=== PATIENT | female | born 1990 | race Caucasian/White ===

== ENCOUNTER 2020-01-19 09:00 | Outpatient (RCR) | payer MEDICARE, MEDICAID, SELFPAY ==
--- NOTE | 2020-01-19 09:05 | BH.SGPN.GN ---
Behaviors/Verbalizations/Mental Status: [] Eye contact is good. Motor activity is appropriate. Appearance is disheveled. Speech is Appropriate. Mood is depressed. Affect is flat. Thoughts are linear and logical. No evidence of psychosis. Reviewed daily check in sheet and no reports of suicidal ideations or intent. Client Response/Progress/Benefit: [] Pt participated at times in group discussion. This was pt's first IOP session. She introduced herself to the group and shared that she has PTSD, Bipolar, and anxiety. Began the program to help reduce the severity of her MH symptoms. Discussed recent hospitalization and the impact of her depression on her daily life. Group was receptive and welcomed her to the program. Provided feedback and advice for the first week of the IOP program. No progress noted as this was first day. Will continue in IOP to maintain safety, prevent decompensation, and increase healthy coping skills. Narrative Note: []
--- NOTE | 2020-01-19 10:08 | BH.SGPN.GN ---
Behaviors/Verbalizations/Mental Status: []Client alert and oriented, casually dressed and groomed. Eye contact good. Motor activity appropriate. Speech within normal limits. Affect congruent, mood anxious and dysthymic. Thoughts linear, logical, no signs of hallucinations or delusions. Client Response/Progress/Benefit: []Client first day in IOP program. She responded well to session and contributed to discussion, reported connecting to idea that we control our response to life?s events. Connected with the group topic of crisis and did well to work with group to define crisis. Group identified examples of potential crisis to include loss of a loved one, relationship problems, divorce, job loss, and medical problems. Client agreed with peers that anything can lead to a crisis. Connected with discussion on how coping with external crisis by using unhealthy coping skills could result personal crisis. Group identified unhealthy coping skills to include; using substances, sleep, avoidance/isolation, anger outbursts, suicidal thoughts, and self-harm. Group reported that it is important to have awareness of warning signs in order to prevent crisis. Group identified warning signs for crisis and Client completed the personal warning signs worksheet. Identified crisis warning signs to include; increased negative thoughts, apathy, and drop in functioning. Benefited from group by increasing awareness of crisis and personal warning signs. Progress noted in client?s ability to engage in group. Will continue IOP tx to improve identification and application of coping skills, prevent decompensation, and reduce mental health sx. Narrative Note: []
--- NOTE | 2020-01-19 11:05 | BH.SGPN.GN ---
Behaviors/Verbalizations/Mental Status: []Pt eye contact good, casually dressed, motor activity appropriate, speech normal rate and tone, mood anxious and depressed, constricted affect, thoughts linear and intact, no evidence of delusions or hallucinations. Client Response/Progress/Benefit: []Client responded well to session as evidenced by client listening attentively to others and providing input throughout session. Client identified her warning signs for crisis and gained further awareness of earliest warning signs. Client appeared to connect that awareness of these warning signs can prevent further crisis and help client utilize healthy coping skills to break the cycle. Client created a crisis action plan to help client better manage warning signs for crisis. Client?s plan included: challenging distorted thoughts, identifying at least two daily positives, making list of small attainable goals, opposite action, making to-do lists, and getting out of bed. Client created her crisis survival kit by choosing various tangible items that remind her of various skills from crisis intervention plan. Client appeared to benefit from creating a crisis action plan and increasing self-awareness. Client to continue IOP to prevent decompensation, maintain safety, and increase healthy coping. Narrative Note: []
--- NOTE | 2020-01-23 09:06 | BH.SGPN.GN ---
Behaviors/Verbalizations/Mental Status: []Eye contact is good. Motor activity is appropriate. Appearance is casual. Speech is Appropriate. Mood is anxious, dysthymic. Affect is full. Thoughts are linear and logical. No evidence of psychosis. Reviewed daily check in sheet and no reports of suicidal ideations or intent. Client Response/Progress/Benefit: []Pt was an active participant in group discussion. Pt shared that her current mood as ?anxious? and noted this is due to still adjusting to the group environment. Pt identified current mental health ?wins? as challenging herself to complete a piece of artwork and actually focusing on what she like about it rather than potential imperfections. Shared often struggling to challenge unrealistic expectations of herself. Noted additional win as coping with thoughts of self-harm and not acting upon them. Indicated that distracting herself with a movie and being near a support was most helpful in her ability to successfully do so. Shared that stress related to completing several art projects continues to reinforce anxious thoughts and feelings of being overwhelmed. Expressed trying to break things down into small steps. Benefited from group support, encouragement, and feedback. Will continue in IOP to prevent decompensation, stabilize mood, and improve daily functioning. Narrative Note: []
--- NOTE | 2020-01-23 10:15 | BH.SGPN.GN ---
Behaviors/Verbalizations/Mental Status: []Pt eye contact good, casually dressed, motor activity appropriate, speech normal rate and tone, mood dysthymic, constricted affect, thoughts linear and intact, no evidence of delusions or hallucinations. Client Response/Progress/Benefit: []Client was an active participant in group activity and provided input to discussion. Client connected with the topic of obstacles and solutions and worked with group to identify common internal and external barriers that keep people stuck. Group identified; low motivation, not having skill set, learned behavior, hopelessness, and negative thinking as potential internal barriers that could prevent progress towards a better quality of life. Client shared current reality as feeling like she is stuck, afraid, helpless, and everything feels broken. Client's realistic, desired reality to be back to working in the field she loves. Client stated although she won't be able to go back to work Benefited from group as client was able to identify current and desired mental health state and increase awareness of how barriers can impact progress. Will continue IOP tx to increase healthy coping skills, maintain set boundaries, and prevent decompensation. Narrative Note: []
--- NOTE | 2020-01-23 11:20 | BH.SGPN.GN ---
Behaviors/Verbalizations/Mental Status: [] Eye contact is good. Motor activity is appropriate. Appearance is casual. Speech is Appropriate. Mood is depressed. Affect is flat. Thoughts are linear and logical. No evidence of psychosis. Client Response/Progress/Benefit: [] Pt participated at times during the group discussion. Engaged in group activity. Pt was able to identify barriers to reaching her desired reality which included; negative thoughts, self-hate, and fear. During the activity group worked together to developed strategies to overcome commonly reported obstacles such as; Hopelessness, Lack of motivation, Isolation, Self-Loathing, Apathy, Fear of Failure, Avoidance, and Toxic Relationships. Pt benefited from identifying obstacles in the way of her desired reality as well as strategies to overcome those obstacles. Will continue in IOP to maintain safety, prevent decompensation, and improve daily functioning. Narrative Note: []
--- NOTE | 2020-01-25 09:10 | BH.SGPN.GN ---
Behaviors/Verbalizations/Mental Status: [] Eye contact is good. Motor activity is appropriate. Appearance is causal. Speech is Appropriate. Mood is depressed. Affect is flat. Thoughts are linear and logical. No evidence of psychosis. Reviewed daily check in sheet and no reports of suicidal ideations or intent. Client Response/Progress/Benefit: [] Pt was an active participant in group discussion. Emotion for today is numb. Daily symptom tracker notes 5 for anxiety and hopelessnes. Shared with the group that she had completed a consult for transcranial magnetic stimulation yesterday. Briefly explained this to the group. She has to wait a couple months before she learns if she meets criteria. Mentioned that next week is the anniversary of her 's suicide and she is already planning things on that day to help distract herself and not isolate. In the past this day has been problematic. Group provided support and some feedback. She is able to distract herself with some creative projects which she showed the group. When she posts these online it is helpful to her MH due to the positive. Benefited from group support, encouragement, and feedback. Will continue in IOP to maintain safety, improve functioning, and prevent decompensation. Narrative Note: []
--- NOTE | 2020-01-25 10:13 | BH.SGPN.GN ---
Behaviors/Verbalizations/Mental Status: []Client alert and oriented, casually dressed and groomed. Eye contact good. Motor activity appropriate. Speech within normal limits. Affect congruent, mood anxious and depressed. Thoughts linear, logical, no signs of hallucinations or delusions. Client Response/Progress/Benefit: []Client receptive of session, attentive in discussion and activity. Client discussed the quote and provided input that ?it can seem safer not to share emotions because it prevents potential conflict and I?m a nonconfrontational person?. Discussed impact of shutting down on relationships. Client helped group identify barriers that impact one?s ability to communicate when emotions are high. These barriers included; increased stress, fear of confrontation or conflict, making assumptions, and distorted thoughts. Expressed that unmanaged emotions can make someone respond in sarcastic or passive-aggressive manners. Client participated in the activity and did well to manage emotions throughout. Client appeared to benefit from increasing awareness of how emotions can impact communication and practicing in the moment coping skills. Progress noted as client has been demonstrating improved engagement in treatment setting. Reports increased use of small goal setting. Will continue IOP tx to further increase emotion regulation, improve coping and communication, and improve daily functioning. Narrative Note: []
--- NOTE | 2020-01-25 11:15 | BH.SGPN.GN ---
Behaviors/Verbalizations/Mental Status: []Client alert and oriented, casually dressed and fair grooming. Eye contact good. Motor activity appropriate. Speech within normal limits. Affect flat, mood depressed. Thoughts linear, logical, no signs of hallucinations or delusions. Client Response/Progress/Benefit: []Client engaged in session AEB client listening attentively to peer and providing input at times during session. Attentive during psychoeducation on 4 zones of regulation. Client able to identify how she feels in each zone as well as how she acts in each zone. Client able to identify what behaviors she exhibits when in the different emotional zones. Group identified coping skills can use to support self in each zone which included: doing something enjoy, being social, journaling, opposite action, self-care, and self-talk. Client stated she is most often in a low state of alertness. Client stated she will focus on utilizing 5 senses grounding tool to help when in low state of alertness. Benefited from increased education on zones of regulation or stages of alertness for emotions and healthy coping skills to use for each zone. Will continue IOP tx to increase consistent use of healthy coping skills, increase socialization and prevent decompensation. Narrative Note: []
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
--- NOTE | 2020-01-25 14:07 | BH.MTP_ITS ---
[facility] Treatment Plan - Patient Information Program Physician:: Dr. Cano Primary Therapist:: Ariadna Morales, [facility] - Psychiatric Diagnoses Psychiatric Diagnoses:: Bipolar 1 disorder, current episode depressed, severe without psychosis; PTSD; DIONE; ADD; history of anorexia with purging by emesis Diagnosis Code(s):: F 31.4 - Estimated LOS Estimated LOS (in weeks):: 6 Problem/Goal #1 - Problem/Goal #1 Stated Goal:: Client will reduce depression, feelings of hopelessness, and suicidal ideation due to Bipolar 1 Disorder through Intensive Outpatient Program. Description of Barriers: Pt's negative core beliefs, distorted thoughts, low motivation, anhedonia, and chronic suicidal ideation could be potential barriers to treatment. Functional Impact: Pt currently on disability due to her mental health making it challenging to maintain a job. Pt has had 20+ psychiatric admissions with most recent 4 weeks ago for suicidal ideation. Pt has difficulty maintaining safety outside inpatient psychiatric hospital. She endorses depressed mood, isolation, hopelessness, ruminating and worthlessness. Goal Relevant Strengths/Supports: Pt is intelligent, creative, resilient and expresses motivation to get better. - Objectives Objective #1 Stated Objective: Identify 2-3 thoughts or behaviors that reinforce depressive symptoms and replace negative thoughts with more rational thinking. Interventions: Therapist will help client identify distorted thinking that triggers or reinforces depressive state. Therapist will provide client with resources to help guide in replace trigger thoughts or behaviors. Discharge Criteria: Client will have met this goal when she can verbalize at least 2 thoughts or behaviors that reinforce depressive episode, identify rational response to replace those thoughts, and effectively be able to defeat suicidal ideation. Target Date: 03/01/20 Review Date: 02/16/20 Objective #2 Stated Objective: Pt will decrease depressive symptoms AEB pt?s score on the DSM 5 cross-cutting measure and improve pt?s daily functioning. Interventions: Through groups and individual therapy, pt will be provided with education on cognitive distortions, mistaken beliefs, and identifying and combating negative self-talk. Therapist will assist pt with getting back into the activities she once enjoyed as well as increasing healthy coping strategies. Discharge Criteria: Pt will have met this goal when pt?s score on the DSM 5 cross cutting measure for depression has been decreased and per pt?s report daily functioning has improved. Target Date: 03/01/20 Review Date: 02/16/20 Problem/Goal #2 - Problem/Goal #2 Stated Goal:: Stabilize anxiety level while increasing ability to function on daily basis. Description of Barriers: Pt's negative core beliefs, distorted thoughts, low motivation, anhedonia, and chronic suicidal ideation could be potential barriers to treatment. Functional Impact: Pt currently on disability due to her mental health making it challenging to maintain a job. Pt has had 20+ psychiatric admissions with most recent 4 weeks ago for suicidal ideation. Pt has difficulty maintaining safety outside inpatient psychiatric hospital. She endorses depressed mood, isolation, hopelessness, ruminating and worthlessness. Goal Relevant Strengths/Supports: Pt is intelligent, creative, resilient and expresses motivation to get better. - Objectives Objective #1 Stated Objective: Client will learn and utilize 2-3 healthy coping strategies to manage anxious symptoms. Interventions: Therapist will assist client in learning internal coping strategies to manage anxious symptoms, along with helping client identify triggers. Discharge Criteria: Client will have achieved this goal when can consistently utilize at least 2 healthy coping strategies to manage anxious symptoms. Target Date: 03/01/20 Review Date: 02/16/20 Objective #2 Stated Objective: Pt will decrease anxious symptoms AEB pt?s score on the DSM 5 cross-cutting measure improve pt?s daily functioning. Interventions: Through groups and individual therapy, pt will be provided education about anxiety?s impact on body and common physiological reaction to anxiety. Therapist will teach pt appropriate breathing techniques and build healthy coping skills to manage daily anxieties. Discharge Criteria: Pt will have met this goal when pt?s score on the DSM 5 cross cutting measure for anxiety has been decreased and per pt?s report daily functioning has improved. Target Date: 03/01/20 Review Date: 02/16/20
--- NOTE | 2020-01-25 14:48 | BH.MDN ---
Multi-Disciplinary Note - Note 45-min Individual Time Started:: 12:20 Date: 01/25/20 Purpose of session/treatment goals addressed:: Purpose of session was to asses pt's current symptoms and stressors. Other topics included: identifying goals for IOP and reviewing current coping skills. Eye Contact:: Fair Motor Activity:: Appropriate Appearance:: Casual Speech:: Appropriate Mood:: Depressed Affect:: Flat Thoughts:: Linear, Logical, No evidence of hallucinations/delusions noted Staff Interventions:: Therapist used open ended questions to elicit pt's current symptoms and stressors. Therapist assisted pt with developing plan to help pt manage emotions during anniversary of her 's . Therapist collaborated with pt to identify treatment goals for IOP. Elicited what healthy coping skills current help pt manage symptoms. Provided support by validating emotions. Client Response:: Pt reported she is feeling anxious and a bit down because the anniversary of her 's is coming up. Pt stated in the past the anniversay day of his does not go well. Pt reported she discussed with her mom potentially going to a museum together as a distraction. Pt agreed with therapist she does feel the need to be sad on the anniversay day. seemed to benefit from discussion about it being okay pt is not depressed on anniversary day. Pt stated while in IOP program she wants to increase utilization of healthy coping. Pt reported she knows many healthy skills but struggles with using the skills consistently. Pt stated she wants an overall reduction in symptoms. Pt reported current skills that help her symptoms are drawing, creating art, and hanging out with friends. Pt created goal of spending at least 30 minutes each day to work on her commissioned art pieces. Risks/Concerns:: Pt deneis current suicidal ideation, plan or intention to date. Per [facility] pt is high risk. Pt agreeable to talk with brother about having him keep her excess medications. Pt resistant to including her mom and dad into reducing access to lethal means. Pt states she doesn't have access to firearms. Therapist reinterated importance of reducing access to means even when she is not actively suicidal. Progress Toward Goals/Plan:: No progress noted. Session focused on lethal means counseling and establishing goals for IOP level of care. Pt to continue IOP to maintain safety, increase healthy coping, and prevent decompensation. Time Stopped:: 13:00
--- NOTE | 2020-01-26 09:00 | BH.SGPN.GN ---
Behaviors/Verbalizations/Mental Status: [] Eye contact is good. Motor activity is appropriate. Appearance is casual. Speech is Appropriate. Mood is depressed. Affect is flat.Tearful at times Thoughts are linear and logical. No evidence of psychosis. Reviewed daily check in sheet and no reports of suicidal ideations or intent. Client Response/Progress/Benefit: [] Pt was an active participant in group discussions on vulnerability and anxiety/fear related to Coronavirus. Emotion for today is anxiety. She shared some anxiety facing the coronavirus and her concern for certain family members. She has plan to attend a social event this evening however my danelle is telling not to go citing concerns for illness as well as struggles with anxiety in social settings. Aware that going will be beneficial for her mental health. Group provided feedback and challenged some distortions. Progress noted per pt report. Will continue in IOP to maintain safety, improve functioning, and prevent re-admission to psych unit. Narrative Note: []
--- NOTE | 2020-01-26 10:16 | BH.SGPN.GN ---
Behaviors/Verbalizations/Mental Status: []Client alert and oriented, casually dressed and groomed. Eye contact good. Motor activity appropriate. Speech within normal limits. Affect congruent, mood anxious and dysthymic. Thoughts linear, logical, no signs of hallucinations or delusions. Client Response/Progress/Benefit: []Client responded well to session, attentive and engaged throughout. Quite at times though participated in group discussion to define conflict and identify differences between internal and external conflict. Client shared that she often struggles with being ?nonconfrontational in nature? which increases her desire to avoid as a result. Group reported the benefits of addressing conflict included increased self-confidence, increased trust in relationships, having needs be met, and preventing further conflict from arising. Group identified and discussed consequences of not addressing conflict in healthy ways which included: decreased self-esteem, damaged relationships, increased mental health symptoms, and additional stressors developing as a result. Benefited as client was able to identify current conflict style and how it impacts her mental health and relationships with others. Noted she often is accommodating or avoiding and that this has impacted her ability to get her own needs met. Progress noted as shown by client?s report of improved insight, though she continues to struggle with distorted thought patterns and consistent skill application. Will continue IOP tx to promote insight and application of healthy skills, reduce mental health sx severity, and further improve daily functioning. Narrative Note: []
--- NOTE | 2020-01-26 11:20 | BH.SGPN.GN ---
Behaviors/Verbalizations/Mental Status: []Client alert and oriented, casually dressed and groomed. Eye contact good. Motor activity appropriate. Speech within normal limits. Affect constricted, mood depressed. Thoughts linear, logical, no signs of hallucinations or delusions. Client Response/Progress/Benefit: []Client passive participant AEB client not providing any input during group discussion, however appeared to listen attentively to peers and took notes throughout. Listened to ongoing discussion of the different conflict resolution styles, drawbacks, and appropriate times of use. Client stated she most often avoids or accommodates when faced with conflict. Client reported she recognizes avoiding or accommodating when faced with conflict results in others needs being met. Client stated she would like to become more assertive when faced with a conflict so her thoughts and opinions are heard by others. Client appeared to benefit from increasing awareness of her personal conflict resolution style and from learning ways to increase healthy conflict resolution. Will continue tx to increase consistent use of healthy coping, maintain safety, and prevent decompensation. Narrative Note: []
--- NOTE | 2020-01-29 09:10 | BH.SGPN.GN ---
Behaviors/Verbalizations/Mental Status: [] Eye contact is good. Motor activity is appropriate. Appearance is causal. Speech is Appropriate. Mood is depressed. Affect is flat. Thoughts are linear and logical. No evidence of psychosis. Reviewed daily check in sheet and no reports of suicidal ideations or intent. Client Response/Progress/Benefit: [] Pt was an active participant in group discussion on anxiety/fear related to COVID-19 and ways to help manage emotions. Pt reports that she is extremely anxious about COVID-19 due to having family members who are high risk. Admits to not utilizing healthy coping skills (constantly check social media and reading articles which exacerbate her symptoms) and catastrophizing. She attempted to distract during the weekend through her art however her computer stopped working. She did attend game night on Wednesday which she reports was fun and she was proud of this. Some progress noted per pt report however recent fears regarding virus have escalated her anxiety. Benefited from group support, encouragement, and feedback. Will continue in IOP to maintain safety, prevent decompensation, and stabilize mood. Narrative Note: []
--- NOTE | 2020-01-29 10:15 | BH.SGPN.GN ---
Behaviors/Verbalizations/Mental Status: []Client alert and oriented, casually dressed and groomed. Eye contact good. Motor activity appropriate. Speech within normal limits. Affect flat, mood depressed. Thoughts linear, logical, no signs of hallucinations or delusions. Client Response/Progress/Benefit: []Client passive participant AEB pt not contributing input during discussion, however took notes throughout session. Group identified the benefits to setting boundaries as well as the consequences of not setting healthy boundaries. Participated in the discussion of benefits of setting boundaries which included; increase control over situations, self-protection, self care, and ability to manage mental health better. Client seemed to benefit from increased awareness of how poor boundaries can negatively impact mental health. Will continue IOP tx to prevent decompensation, improve emotional regulation, and increase utilization of healthy coping skills. Narrative Note: []
--- NOTE | 2020-01-29 11:17 | BH.SGPN.GN ---
Behaviors/Verbalizations/Mental Status: []Client alert and oriented, casual dress, hygiene appropriate. Eye contact good. Motor activity appropriate. Speech within normal limits. Affect constricted, mood anxious, dysthymic. Thoughts linear, logical, no signs of hallucinations or delusions. Client Response/Progress/Benefit: []Client responded well to session, occasionally sharing, but mostly quiet. Client engaged in the boundary self-assessment activity and worked with group to further process. Client reported she has a hard time saying no to people due to fear of conflict. Client able to recognize that not being able to say no causing more stress and anxiety in client?s life. Self-identified as using both rigid and porous boundary setting styles. Client stated she connects with the difficulty saying no that is characteristic of porous boundary setting, but client also connects with being avoidant and detached that is characteristic of rigid boundaries. Client shared being detached and avoidant negative impacts her relationships and reinforces negative thoughts. Progress noted in client?s increased awareness of how her boundary setting styles impact her mental health and mood. Client to continue IOP tx to reduce intensity and severity of mental health symptoms as well as improve daily functioning. Narrative Note: []
--- NOTE | 2020-01-30 10:10 | BH.SGPN.GN ---
Behaviors/Verbalizations/Mental Status: []Client alert and oriented, casually dressed and groomed. Eye contact good. Motor activity appropriate. Speech within normal limits. Affect constricted, mood anxious. Thoughts linear, logical, no signs of hallucinations or delusions. Client Response/Progress/Benefit: []Client responded well to session, participating in group discussion and activity. Attentive during psychoeducation and commenting on the quote. Client stated change is difficult, but sometimes it is needed and client gave the example of leaving a toxic relationship. Group identified the benefits of change which included: personal growth, better relationships, improved mental health, increased confidence, and better coping skills. Worked with the group to identify barriers to change, which included: growing up with unhealthy coping skills, fear of embarrassment, fear of the unknown, fear of hurting others, comfort, and what if thinking. Client participated along with group in activity where they identified and discussed the emotions related to change. Client was attentive during psychoeducation on the change process. Benefited from increased awareness and understanding of emotions, benefits, and barriers related to change. Will continue IOP tx to prevent decompensation, maintain safety, and improve healthy coping skills. Narrative Note: []
--- NOTE | 2020-01-30 11:17 | BH.SGPN.GN ---
Behaviors/Verbalizations/Mental Status: []Client alert and oriented, casually dressed and groomed. Eye contact good. Motor activity appropriate. Speech within normal limits. Affect constricted, mood depressed. Thoughts linear, logical, no signs of hallucinations or delusions. Client Response/Progress/Benefit: []Client was an active participant AEB client providing input during discussion and listening to peers attentively. Client engaged during discussion on weighing the pros and cons associated with change and benefited from learning to do so through use of decisional balance sheet. Identified she wants to draw daily as the change she wants to make to improve her mental health. Client able to identify the pros of drawing daily which included: releasing stress, feeling accomplished, improve drawing skill, more followers online, and creating new art pieces. Identified cons of not drawing daily include: losing skill, don't contribute to art world, creating nothing, feeling like a failure, guilt, and losing part of self. Client stated obvious answer is to draw daily, but unsure if ready to make that change still. Appeared to benefit from gaining awareness of the pros and cons associated with changing her coping skills. Recommended continued IOP tx to promote increase healthy coping, challenge distortions, and prevent decompensation. Narrative Note: []
--- NOTE | 2020-01-30 21:09 | BH.MDN ---
Multi-Disciplinary Note - Note 45-min Individual Time Started:: 12:15 Date: 01/30/20 Purpose of session/treatment goals addressed:: Purpose of session was to assess pt's current symptoms and stressors. Other topics included: reviewed homework from last session, impact of anxiety on functioning and healthy coping skills. Eye Contact:: Fair Motor Activity:: Appropriate Appearance:: Casual Speech:: Appropriate Mood:: Anxious, Dysthymic Affect:: Constricted Thoughts:: Linear, Logical, No evidence of hallucinations/delusions noted Staff Interventions:: Therapist utilized open ended questions to elicit pt's current symptoms and stressors. Therapist reviewed homework from last session, assisting pt with identifying positives from having goals. Therapist elicited pt's anxiety triggers and assisted pt with recognizing impact anxiety has on funcitoning. Reviewed healthy coping skills to manage anxious and depressive symptoms. Provided support by using active listening and validating emotions. Client Response:: Pt reported she was able to accomplish some of her goal of working on an art commission. Pt stated she felt accomplished and positive after working on her commissioned art piece. Pt reported she wasn't able to accomplish compelte goal of working on her art piece every day because her computer broke. Pt stated she did fun traditional art the rest of the weeked since her computer was broke so couldn't work on her commissioned pieces. Pt reported she has been having increased anxiety over everything. Pt stated she had to use her panic medication to help calm her down. Pt reported with needing to stay home due to the coronavirus she no longer can go to the museum on the anniversary of her 's . Pt stated that had been her plan so she could have a positive distraction. Pt reported she currently is feeling rather numb about the upcoming anniversary. Pt stated she plans to hang out with her mom at home and do some art as a way to cope. Pt reported her anxiety is impacting her functioning because has a difficult time getting out of bed, struggles with going to public places, and tends to experience panic-like symptoms when trying to go to bed. Pt stated she is willing to practice mindful breathing, grounding techniques, and distraction activities to help her manage anxiety. Risks/Concerns:: Denies current suicidal ideation, plan or intent. Pt continues to be resistant to including any of her family members in the process of reducing access to lethal means. Therapist provided lethal means counseling. Reiterated importance of reducing access to lethal menas even when not feeling actively suicidal. Pt future focused. Agreeable to call 911 or go to nearest emergency room if feel unable to maintain safety. Progress Toward Goals/Plan:: Progress noted with pt starting to engage in drawing and working on her commissioned art pieces. Pt stated she hasn't been engaging in art because had lost interest. Seems to benefit from using opposite action skill to help her reengage in activities she used to find enjoyable. Pt to continue IOP to increase healthy coping, maintain safety and prevent decompensation. Time Stopped:: 12:56
--- NOTE | 2020-01-31 09:10 | BH.NA_ITS ---
Physical Data - Vital Signs Temperature: 97.5 F Pulse Rate: 88 Blood Pressure: 94/60 - Height/Weight Height: 1.73 m Weight:: 83.915 kg Weight in Pounds: 185.0 lbs Current Medication Compliance - Medication Compliance Do you take your medication as prescribed?: Yes Do you need assistance with taking medication?: No Have you had side effects from medication?: No Nutritional History - Appetite Nutritional Instructions:: If client shows signs of a swallowing problem, weight change of 10 pounds or more in the last month, or is on a diabetic diet, the physician will review and request a dietitian consult, as appropriate. All unintentional weight loss will be referred to the physician for decision on need for dietitian consult. Describe your appetite:: Good, Fair Have you noticed a change in your eating habits lately?: Yes - recent weight gain of 10lbs with new antidepressant Functional Assessment - Sleep Pattern Describe any problems with sleeping: Client states her sleep is good. States she sleeps 8-9 hours per night. - Activities Motor Activity:: Functional Comments:: bouncing legs at times during interview Sensory/Communication Assess - Vision Problems Do you have any vision problems?: Glasses - Communication Problems Do you have difficulty understanding what people are saying?: No Medical Problems/History - Cardiac Conditions Cardiovascular: Atrial fibrillation Comments:: client states she has follow ups with service supervisor for intermittent A-fib - Neurological Conditions Neurological: Other (See comments) Comments:: epilepsy as a child. Client states she has not been on medication or had a seizure in many years. - Gastrointestinal Conditions Comments:: hiatal hernia, IBS - Pain Assessment Do you have acute or chronic pain?: No Surgical History - Surgical History Have you had any surgeries? If so, list type and date:: Yes - deviated septum sinus surgery, jaw surgery Substance Abuse - Substance Abuse Please describe substance abuse in the last 30 days:: Client states she was a heavy drinker for a short time in college when her was diagnosed as schizophrenic. Client reports no recent alcohol use. Client denies tobacco use. Client states in her teens she used marijuana, acid, ecstasy. Denies recent drug use. Client states she drinks less than 200mg of caffiene per day. Mental Status Summary - Mental Status Significant Findings/Observations on Appearance and Mood:: Client is alert and oriented x 4. Client is casually groomed with cooperative demeanor. Client makes good eye contact, voice rate and volume normal and clear. Client appears mildly depressed and anxious with some anhedonia. Client makes logical associations with normal processing. Denies delusions/hallucinations, no evidence of same. Client with good concentration and attention. Client denies SI. Suicide Assessment - Suicidal Ideation Are you currently or have you been suicidal in the past?: Yes - past SI, denies SI at this time Suicidal Intentional Rating Scale (SIRS): Suicidal thoughts (past) Physician Notification: If Active suicidal thoughts/Will not contract for safety is checked, contact physician and document in the Physician Notification section below. Past Psychiatric History - MH Treatment Hx Past Psychiatric Medications:: Zoloft, paxil, wellbutrin. Client states there are many more that she can not remember names. ECT Therapy Details:: previous Age of first mental health symptoms: Client states she was diagnosed with depression when she was a teenager. Client states in the last 5 years she was diagnosed with general anxiety disorder and bipolar. Describe (age, circumstance, etc) any past hospitalizations: Client has had several hospitalizations. Clients most recent hospitalization was approximately 5 weeks ago at in [place] for suicidal ideations. Current providers for mental health treatment (counselor, psychiatrist, cyanide case hardener, etc.): psychiarist Dr. Peterosn, also trauma therapist at [facility]. Fall Risk Assessment - Age Age: Less than 60 - Mental Status Mental Status: Willing & able to ask for assistance when needed - Physical Status Physical Status: No problems - Impairments Impairments: None - Elimination Elimination: Continent AND independent - Gait or Balance Gait or Balance: Walks independently - Hx of Falls History of falls in the past 6 months: No known history - Medications/Substances Psychotropics:: Antidepressants, Mood stabilizers, Anxiolytics (e.g. benzodiazepines) Medications/substances used within the past 24 hours or ordered to administer: 3 or more of the medications/substances listed above - Total Score Total Points:: 2 RN Summary of Impressions - Impressions Recommendations: Include psychiatric and medical issues, treatment planning recommendations, and discharge planning needs. Impressions: Psychiatric Issues: bipolar 1 disorder, most recent episode depressed without psychosis, PTSD, DIONE, ADD, history anorexia with purging by emesis - Level of Care How do the client's current symptoms and functional deficits support need for this level of care?: Client states in the last few weeks, her feelings of depression have escalated more than usual. Client states it went from having feelings of depression to self-harming behavior (cutting) to thoughts of suicide. Client denies self-harm since before her recent hospitalization and denies current open areas from previous cutting. Client reports feelings of numbness, hopelessness, isolation, and anhedonia. Client reports many hospitalizations in the past. Client denies SI at this time. Client states since starting the program after hospitalization that she does see some improvements in how she feels. Client states coming to program gives her some accountablity with is helpful. IOP will promote gains and prevent further decompensation while providing social support and skills training.
--- NOTE | 2020-01-31 10:14 | BH.SGPN.GN ---
Behaviors/Verbalizations/Mental Status: []Client alert and oriented, casually dressed and groomed. Eye contact good. Motor activity appropriate. Speech within normal limits. Affect flat, mood depressed. Thoughts linear, logical, no signs of hallucinations or delusions. Client Response/Progress/Benefit: []Client was an engaged participant AEB client providing input during discussion and listened attentively to others. Client connected with discussion on different types of anxiety, as well as the difference between ?normal? anxiety and anxiety disorders. Client gained awareness of personal physical symptoms of anxiety which included: dizzy, tight chest, tingling arms, gastrointestinal problems, and blurred vision. Client identified she has the thought I'm going to which increases anxious symptoms. Client appeared to benefit from gaining insight to physical signs of anxiety and how thoughts can increase anxiety. Will continue IOP to increase application of healthy coping skills, challenge distorted thoughts and prevent decompensation. Narrative Note: []
--- NOTE | 2020-01-31 11:13 | BH.SGPN.GN ---
Behaviors/Verbalizations/Mental Status: []Client alert and oriented, casual in appearance. Eye contact good. Motor activity appropriate. Speech within normal limits. Affect congruent, mood anxious. Thoughts linear, logical, no signs of hallucinations or delusions. Client Response/Progress/Benefit: []Pt active participant during discussion providing input to discussion and listened attentively to others. Pt able to connect with the discussion reviewing three categories of skills for managing anxiety which included mind-based, body-based, and self-soothing. Contributed ideas to group brainstorming various skills within the different categories. Pt willing to practice following relaxation skills of breathing and 5-senses. Pt seemed to benefit from increased awareness of healthy skills to manage anxious symptoms and identifying skills willing to practice outside treatment environment. Progress noted with increased thought challenging and use of healthy skills outside treatment environment. Recommended to continue IOP level of care to increase healthy coping skills, identify and challenge distorted thoughts, and prevent decompensation. Narrative Note: []
[2020-01-31 11:22] VITALS: BP 94/60; PULSE 88; TEMP 36.4
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
--- NOTE | 2020-01-31 13:29 | BH.PSY.EVA_ITS ---
Initial Treatment Plan - Patient Information Visit Information: ADMISSION DATE: EXPECTED LOS: 4-6 weeks - Problems/Symptoms Problem #1:: Depression Symptom:: Sadness, rumination, hopelessness, guilt, passive thoughts, fle eting SI Problem #2:: Anxiety Symptom:: Worry, panic attacks, avoidance, rumination
--- NOTE | 2020-02-05 09:05 | BH.SGPN.GN ---
Behaviors/Verbalizations/Mental Status: []Eye contact is good. Motor activity is appropriate. Appearance is casual. Speech is Appropriate. Mood is euthymic and anxious. Affect is constricted. Thoughts are linear and logical. No evidence of psychosis. Reviewed daily check in sheet and no reports of suicidal ideations or intent. Client Response/Progress/Benefit: [] Client responded well to session, providing feedback and engaged throughout. Client reports feeling anxious but happy to be here. Client jokingly shared she always feels anxious though. 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 Client shared she still feels somewhat guilty about setting the boundary, but client shared it was best for everyone. Client receptive to feedback from peers who gave client positive encouragement. Client reported her stressor today is that she is running low on a medication and her insurance will not cover what she needs. Received feedback from peers to use [facility] and to contact her physician. Receptive and willing to contact her provider today. Appeared to benefit from connecting with peers and problem-solving her stressor. Will continue IOP level of care to prevent decompensation of symptoms and improve daily functioning. Narrative Note: []
--- NOTE | 2020-02-05 10:08 | BH.SGPN.GN ---
Behaviors/Verbalizations/Mental Status: []Client alert and oriented, casually dressed and groomed. Eye contact good. Motor activity appropriate. Speech within normal limits. Affect congruent, mood anxious and dysthymic. Thoughts linear, logical, no signs of hallucinations or delusions. Client Response/Progress/Benefit: []Pt receptive to session, participating throughout. Provided input as the group brainstormed the positive and negative aspects of stress on physical and mental health. Group noted that distress can cause physical health impacts, result in increased negative thinking, lead to further avoidance, and impact emotion regulation. Shared benefits of stress as: increased motivation, improved resilience, improved self-esteem, and personal growth. Client?s current stressors included physical health issues of her family, work, mental health, finances, and the current COVID-19 pandemic. Client reports belief that her stress jar is currently overflowing and expressed difficulties in identifying which stressors are within her control. Client stated when stress is too high client is often tempted to avoid. Appeared to benefit from gaining awareness of own current stressors and learning about the impact stress has on overall wellbeing. Progress noted as shown by client?s increased insight and ability to cope with mental health sx. Recommend continued IOP tx to promote use of healthy coping skills, maintain safety, and to further reduce mental health symptoms. Narrative Note: []
--- NOTE | 2020-02-05 11:10 | BH.SGPN.GN ---
Behaviors/Verbalizations/Mental Status: []Client alert and oriented, casually dressed and groomed. Eye contact fair. Motor activity appropriate. Speech within normal limits. Affect constricted, mood anxious and dysthymic. Thoughts linear, logical, no signs of hallucinations or delusions. Client Response/Progress/Benefit: []Pt engaged participant in session as evidenced by pt listening attentively to others and providing input throughout session. Pt reported she currently katie with stress by panicking, trying to make decisions, and wanting to avoid/ignore her stressors. Pt identified current way of coping impacts mental health by increase depression, causing panic attacks, decreased motivation, and worthlessness. Pt actively listening during discussion about the 4 A's of managing stress. Pt identified she will work on accepting her mom's health condition instead of spending significant amount of time ruminating about her mom's health. Pt seemed to benefit from increased awareness of the impact of stress on mental health and increasing repertoire of stress management strategies. Pt to continue in IOP to prevent decompensation, increase healthy coping skills, and challenge distorted thought patterns. Narrative Note: []
--- NOTE | 2020-02-06 09:08 | BH.SGPN.GN ---
Behaviors/Verbalizations/Mental Status: []Client alert and oriented, casual dress, hygiene tended to. Eye contact good. Motor activity appropriate. Speech within normal limits. Affect constricted, mood dysthymic and anxious. Thoughts linear, logical, no signs of hallucinations or delusions. Reviewed client?s symptom tracker, no signs of suicidal ideation, plan, or intent as of today. Client Response/Progress/Benefit: []Pt responded well to session AEB pt openly sharing thoughts and feelings and listened attentively to peers. Pt identified a mental health positive was using opposite action yesterday by choosing to do art instead of having the desire to watch Netflix all day. Pt stated additional positive was being able to notice the symptoms of a panic attack and used mindful breathing to help manage anxious symptoms and prevent panic attack. Pt identified current stressor as fear she will spread the coronavirus to her mom who is immune compromised. Pt seemed to benefit from support from peers and discussion about precautions can take to reduce expose to pt's mom. Pt to continue IOP to continue use of healthy coping, maintain safety, and prevent decompensation. Narrative Note: []
--- NOTE | 2020-02-06 10:15 | BH.SGPN.GN ---
Behaviors/Verbalizations/Mental Status: []Client alert and oriented, casually dressed and groomed. Eye contact good. Motor activity appropriate. Speech within normal limits. Affect congruent, mood anxious, dysthymic. Thoughts linear, logical, no signs of hallucinations or delusions. Client Response/Progress/Benefit: []Pt active participant as shown by increased contribution to discussion and attentiveness throughout. Pt shared connecting to group topic of self-care and discussed that she sometimes struggles in this area. Pt helped the group discuss benefits of self-care. Benefits included; improved happiness and mood, maintaining stability, less stress, increased organization and productivity, and improved self-confidence. Pt participated in the discussion of the common myths about self-care including self-care is selfish, requires money, too much effort and time, and is self-indulgent. Client participated in the discussion on debunking of these myths. Client expressed connecting with myth of self-care is selfish. She seemed to benefit from increased awareness of the importance of self-care and challenging common myths that prevent practicing self-care. Discussed at times struggling to remember to engage in self-care or lacks the motivation. Noted that this has led to ongoing depression and feeling unable to manage daily stressors in the past. Client showing variable progress which may be due to inconsistent application of skills learned and difficulties in challenging negative thoughts. Will continue IOP tx to promote gains and to further decrease depression, improve mental health sx management, as well as prevent decompensation. Narrative Note: []
--- NOTE | 2020-02-06 11:15 | BH.SGPN.GN ---
Behaviors/Verbalizations/Mental Status: []Client alert and oriented, casually dressed and groomed. Eye contact good. Motor activity appropriate. Speech within normal limits. Affect congruent, mood anxious. Thoughts linear, logical, no signs of hallucinations or delusions. Client Response/Progress/Benefit: []Client receptive of session, engaged and contributing to discussion. Participated in further debunking myths about self-care and reinforcing the benefits of practicing consistent self-care. Willing to complete worksheet activity and helped the group identify various types of self-care activities. Client completed self-assessment activity on the different areas of self-care and was able to identify current practices she uses and identify areas she can improve upon. Client reported she can improve her emotional self-care area. Expressed that she would like to practice positive self-talk. Client shared she wants to work on this because I tend to say a lot of mean things to myself. Client recognizes that positive self-talk will help combat thoughts that reinforce depression and anxiety. Client appeared to benefit from increasing awareness of how she can improve self-care balance. Client appearing to progress AEB her report of no suicidal ideations and improved ability to accomplish tasks at home. Will continue IOP tx to reduce anxiety, reduce negative thinking, and improve mood stability. Narrative Note: []
--- NOTE | 2020-02-08 14:04 | BH.MDN_ITS ---
Multi-Disciplinary Note - Note 45-min Individual Time Started:: 12:00 Date: 02/08/20 Purpose of session/treatment goals addressed:: Purpose of session was to assess pt's current symptoms and stressors. Other topics included: processing increased anxiety, psychoeducation about cognitive triangle, and establishing short term goals. Eye Contact:: Good Motor Activity:: Appropriate Appearance:: Casual Speech:: Appropriate Mood:: Anxious, Dysthymic Affect:: Congruent Thoughts:: Linear, Logical, No evidence of hallucinations/delusions noted Staff Interventions:: Therapist used open ended questions to elicit pt's current symptoms and stressors. Therapist processed increased anxiety about coronavirus and having to self-isolate. Therapist provided psychoeducation about cognitive triangle helping pt understand connection between thoughts, emotions and b ehavior. Showed examples of how to challenge or reframe unhealthy thought pattenrs. Elicited short-term goals for pt to focus on during the weekend. Client Response:: This counseling session was provided via telehealth using two- way, real-time interactive telecommunication technology between the patient and the clinician. The interactive telecommunication technology included audio and video. The patient was offered telehealth as an option for care delivery during the COVID-19 pandemic and consented to this option. Patient location: [place]. Provider located at [facility]. Pt reported her brother has a new cough so he is quarantined to his room. Pt stated her family is going to assess if they need to continue to stay quarantined based on her brother?s symptoms. Pt stated she doesn?t want to risk getting the coronavirus especially since three of her family members are immunocompromised. Pt reported her anxiety is increased because feels trapped since can?t go anywhere. Pt reported she used opposite action yesterday by choosing to draw even though she didn?t want to do it. Pt reported she also chose to take her dog on a walk even when she didn?t want to do anything. Pt stated she recognized her mood improved after getting out of the house and choosing to draw instead of doing nothing. Pt connected with the cognitive triangle, recognizing connection between thoughts, emotions and behavior. Pt reported she has had non-suicidal self-harm thoughts but has not acted upon them because distracts self. Pt reported over the next four days she plans to take her dog on walks, watch tv for distraction, play calming video game, drawing, practice mindfulness, and work on her art commissions. Risks/Concerns:: Pt reports passive self-harm and suicidal thoughts. denies suicidal intent or plan. future focused. aggreeable to call 911 or go to nearest emergency room if feels unable to maintain safety. Progress Toward Goals/Plan:: Progress noted with pt utilizing opposite action with positive impact on mood. Pt continuing to engage in drawing and getting outside more frequently, which per pt report is improving her mood. Pt continues to struggle with daily self-harm thoughts, but is able to distract self from thoughts. Pt to continue IOP to decrease anxiety, continue to challenge unhealthy thought patterns and prevent decompensation. Time Stopped:: 12:42
--- NOTE | 2020-02-13 15:48 | BH.MDN ---
Multi-Disciplinary Note - Note 45-min Individual Time Started:: 11:12 Date: 02/13/20 Purpose of session/treatment goals addressed:: Purpose of session was to assess pt's current symptoms and stressors. Other topics included: reviewing homework from last session, reviewing healthy skills, and setting short-term goals. Eye Contact:: Good Motor Activity:: Appropriate Appearance:: Casual Speech:: Appropriate Mood:: Anxious, Dysthymic Affect:: Congruent Thoughts:: Linear, Logical, No evidence of hallucinations/delusions noted Staff Interventions:: Therapist used open ended qeustions to elicit pt's current symptoms and stressors. Therapist reviewed homework from last individual session. Therapist discussed strategies and skills to help manage anxious symptoms. Therapist worked with pt to identify short term goals for the day. Provided support by using active listening and validating emotions. Client Response:: This counseling session was provided via telehealth using two-way, real-time interactive telecommunication technology between the patient and the clinician. The interactive telecommunication technology included audio and video. The patient was offered telehealth as an option for care delivery during the COVID-19 pandemic and consented to this option. Patient location: [place]. Provider located at [facility]. Pt stated her brother is still sick so she is going to stay quarantined to protect herself and family. When reviewing homework from last session pt stated she was able to complete most of the goals she had set. Pt reported she walked her dog, worked on art commissions, did fun art, and challenged some of her negative thoughts using the cognitive triangle. Pt stated one of her thoughts was ?I don?t understand why anyone would want to commission my art?. Pt stated this thought made her feel depressed and negatively impacted her self-esteem. Pt identified new thought to be ?I completed a lot of good art and have gotten many good commissions?. Pt stated the new thought made her feel more confident. Pt reported she was able to complete the sketch for her new commission, which made her feel positive. Pt stated she her anxiety is heightened due to the coronavirus. Pt stated she is trying to spend more time with her family since she has to stay isolated. Pt stated her goals for the day are to go to the grocery store for the whole family, walk her dog, and work on drawing. Risks/Concerns:: Pt continues to report fleeting thoughts of self-harm and suicide. Pt denies current suicidal plan or intent. future focused. agreeable to call 911 or go to nearest emergency room. Progress Toward Goals/Plan:: Progress noted with pt utilizing skills more consistently, increased awareness of unhealthy thought patterns and following through with goals. Pt to continue IOP to continue use of healthy coping skills, challenge distorted thoughts and prevent decompensation. Time Stopped:: 11:55
== END 2020-02-13 23:59 ==
LOC: BHIOP 09:00
PROVIDERS: PCP Family Medicine; Referring Provider Psychiatry & Neurology Psychiatry; Visit Provider Psychiatry & Neurology Psychiatry
DX: F31.4 Bipolar disorder, current episode depressed, severe, without psychotic features (principal); F43.10 Post-traumatic stress disorder, unspecified; F41.1 Generalized anxiety disorder; F98.8 Other specified behavioral and emotional disorders with onset usually occurring in childhood and adolescence; F50.02 Anorexia nervosa, binge eating/purging type; I48.91 Unspecified atrial fibrillation; E72.12 Methylenetetrahydrofolate reductase deficiency; Z79.899 Other long term (current) drug therapy; Z79.82 Long term (current) use of aspirin
CPT/HCPCS: H0035; 90834; 90853

== ENCOUNTER 2020-02-14 09:00 | Outpatient (RCR) | payer MEDICARE, SELFPAY ==
[2020-02-14 00:57] VITALS: BP 94/60; PULSE 88; TEMP 36.4
--- NOTE | 2020-02-14 15:49 | BH.MDN_ITS ---
Multi-Disciplinary Note - Note 45-min Individual Time Started:: 11:02 Date: 02/14/20 Purpose of session/treatment goals addressed:: Purpose of session was to assess pt's current symptoms and stressors. Client Response:: This counseling session was provided via telehealth using two- way, real-time interactive telecommunication technology between the patient and the clinician. The interactive telecommunication technology included audio and video. The patient was offered telehealth as an option for care delivery during the COVID-19 pandemic and consented to this option. Patient location: [place]. Provider located at [facility]. Pt stated this morning was ?very? stressful because had to go to the grocery store to get everything for their family. Pt reported she was ?extremely? anxious while in the grocery s tore. Pt stated her anxiety was a 9/10 while in the grocery store. Pt stated she was ?frazzled? while she was looking for grocery items. Pt reported she tried to breathe mindfully once she realized she was having panic like symptoms. Pt able to recognize although still anxious after using breathing it may have helped her avoid a full-blown panic attack. Pt stated she accomplished her other two goals of walking her dog and did a fun art piece. Pt reported it was helpful to her mood to get outside with her dog. Pt stated she also felt accomplished to work on a fun art piece. Pt stated she did have some negative thoughts that she wished her art drawing was ?better? but challenged negative thoughts. Pt reported yesterday she has ?more serious? self-harm thoughts. Pt stated she discounted her deterrent of nervousness if she cuts, she will be more susceptible to catching the coronavirus. Pt not receptive to reducing access to sharp objects to decrease risk of self-harm. Pt stated she doesn?t really view self-harm as a ?problem?, even though she hides it and society doesn?t approve. Pt reported she doesn?t think it?s a problem because she likes how it feels. Pt stated she knows it?s unhealthy but is unsure she is ready to quit. Pt reported she thinks it could be the quarantine or feeling more down as to why she was having increased self-harm thoughts. Pt reported goals for the next two days include: working on creating a crisis plan using art as a medium, walking her dog, get pharmacy scripts, reaching out to at least one friend, going on her exercise bike, and working on art commission. Time Stopped:: 11:48
--- NOTE | 2020-02-16 15:54 | BH.MDN ---
Multi-Disciplinary Note - Note 45-min Individual Time Started:: 11:03 Date: 02/16/20 Client Response:: This counseling session was provided via telehealth using two-way, real-time interactive telecommunication technology between the patient and the clinician. The interactive telecommunication technology included audio and video. The patient was offered telehealth as an option for care delivery during the COVID-19 pandemic and consented to this option. Patient location: [place]. Provider located at [facility]. Pt stated overall she had a good couple of days. Pt reported she was able to accomplish all of her goals in the last two days. Pt stated her mood was improved yesterday. Pt reported she reached out to her best friend yesterday. Pt stated it was nice to talk with her friend, so she is glad she reached out. Pt stated mood was positive . Pt reported she was able to ?brush off? her self-harm thoughts. Pt stated her biggest stressor is her mom getting it because she believes her mom won?t survive. Pt you suck, everyone hates you, you should . Anxiety/worry, isolation, sleeping too much and numbness, and depression are all warning signs. Pt jet exercise bike as coping strategies as an exercise bike, art, mindful breathing, journal, tv. Pt stated coming up with coping strategies was a little difficult because wanted to be honest about skills. Pt reported she leans heavily on certain strategies like art and breathing. Pt reported there are skills that she knows about but struggles to utilize in the moment. Pt stated the ?forced? isolation adds a little anxiety. Pt reported when she chooses to isolate she typically stays away from her family, but currently not doing that. Pt shared she spends time with her family frequently since quarantine. Pt stated one worry she has is that the ?world is over?. With assistance from therapist pt able to challenge anxious thought. Pt reported goals for the weekend include: walking dog, working on art, exercise bike, and creating an uplifting art piece. Time Stopped:: 11:48
--- NOTE | 2020-02-19 09:00 | BH.SGPN.GN ---
This psychotherapy group was provided via telehealth using two-way, real-time interactive telecommunication technology between the patients and the provider. The interactive telecommunication technology included audio and video. The patient was offered telemedicine as an option for care delivery during the COVID-19 pandemic and consented to this option. Patient location: [place] Provider located at [facility] Behaviors/Verbalizations/Mental Status: []Client alert and oriented, casual dress, hygiene tended to. Eye contact good. Motor activity appropriate. Speech within normal limits. Affect congruent, mood anxious. Thoughts linear, logical, no signs of hallucinations or delusions. Reviewed client?s symptom tracker, no signs of suicidal ideation, plan, or intent as of today. Client Response/Progress/Benefit: []Pt responded well to session AEB sharing thoughts and feelings openly with group and listening attentively to peers. Pt stated a mental health positives as accomplishing all her goals on Wednesday of walking the dog, exercising, working on art commissions, and completed fun art project. Pt reported her mood was significantly improved on Wednesday. Pt stated on Wednesday she did not get as much completed and her mood was down because frustrated she couldn't have two good days in a row. Pt able to challenge her thought process, recognizing her faulty thinking. Pt seemed to benefit from support from peers. Pt to continue IOP to increase healthy coping, challenge distorted thoughts and prevent decompensation. Narrative Note: []
--- NOTE | 2020-02-19 10:10 | BH.SGPN.GN ---
This psychotherapy group was provided via telehealth using two-way, real-time interactive telecommunication technology between the patients and the provider. The interactive telecommunication technology included audio and video. The patient was offered telemedicine as an option for care delivery during the COVID-19 pandemic and consented to the option. Patient location: [place]. Provider located at [facility] Behaviors/Verbalizations/Mental Status: []Client alert and oriented, neatly dressed and groomed. Eye contact good. Motor activity appropriate. Speech within normal limits. Affect congruent, mood euthymic. Thoughts linear, logical no signs of hallucinations or delusions. Client Response/Progress/Benefit: []Client responded well to session, attentive and contributing to discussion. Client contributed to the discussion of the quote and shared ?when things get really tough you need support.? Client reported belief that one?s support systems serve different purposes. Client shared her family is there for her when she struggles. Helped the group identify different types of social support such as family, friends, counselors, psychiatrists, hotlines, and support groups. Discussed the benefits of using social supports to include; emotional release, feeling connected, resources, shared experience, and challenging perspective. Group discussed the barriers that impact one?s ability to use social support or that prevent people from reaching out to their supports. These barriers included; not knowing what support is needed, fear of being a burden, relying too heavily on one support, shutting down, and lack of communication. Client shared over-relying on support and feeling like a burden have kept client from using supports in the past. Appeared to benefit from gaining insight on the benefits to social supports and the barriers that keep people from using support. Will continue IOP tx to increase emotional regulation and reduce intensity and duration of symptoms. Narrative Note: []
--- NOTE | 2020-02-19 11:13 | BH.SGPN.GN ---
This psychotherapy group was provided via telehealth using two-way, real-time interactive telecommunication technology between the patients and the provider. The interactive telecommunication technology included audio and video. The patient was offered telemedicine as an option for care delivery during the COVID-19 pandemic and consented to this option. Patient location: [place] Provider located at [facility] Behaviors/Verbalizations/Mental Status: []Client alert and oriented, casually dressed and groomed. Eye contact good. Motor activity appropriate. Speech within normal limits. Affect congruent, mood anxious and depressed. Thoughts linear, logical, no signs of hallucinations or delusions. Client Response/Progress/Benefit: []Client active participant AEB contributing to discussion and listening attentively to others. Client participated in group discussion about the different types of support and benefits different types of support can provide. Client identified she would like to increase social supports in the area of self-help supports by using her white board to hold her accountable in using self-care skills. Client shared this will help improve internal coping skills and reduce mental health symptoms. Client seemed to benefit from identifying a type of support she would like to improve upon and brainstorming small steps to take in order to successfully do so. Progress noted as shown by client's increased engagement in IOP and insight regarding skills that will improve her overall mental health. Though continues to struggle with consistent follow through. Client to continue IOP tx to reduce anxiety, improve healthy coping skills, and reduce negative thinking. Narrative Note: []
--- NOTE | 2020-02-20 09:08 | BH.SGPN.GN ---
This psychotherapy group was provided via telehealth using two-way, real-time interactive telecommunication technology between the patients and the provider.?The interactive telecommunication technology included audio and video.? ?The patient was offered telemedicine as an option for care delivery during the COVID-19 pandemic and consented to this option. ?Patient location: [place] ?Provider located at [facility] Behaviors/Verbalizations/Mental Status: []Client alert and oriented, neatly dressed and groomed. Eye contact good. Motor activity appropriate. Speech within normal limits. Affect congruent, mood neutral. Thoughts linear, logical, no signs of hallucinations or delusions. Client did not complete a daily symptom tracker. No risks noted based on client's check-in and future orientation. Client Response/Progress/Benefit: []Client responded well to session, engaged throughout and giving ideas to peers. Client reports feeling neutral today. Client stated feeling neutral is a mental health win because client woke up feeling frustrated, but was able to manage her emotions. Client's mental health wins today include getting more exercise lately and following through with her goals. Client shared she went on a long walk with her dog yesterday and they got lost, but client did not get anxious. Client also has been using her exercise bike for the past three days in a row. Client receptive to praise from group and continuous improvement facilitator. Client's stressor today is she has a telehealth appointment with one of her doctors today and she feels nervous. Able to recognize that she is now used to telehealth more because of IOP and this reduced some of her anxiety. Appeared to benefit from reflecting on wins and connecting with peers. Will continue IOP tx to promote mood stability and further improve daily functioning. Narrative Note: []
--- NOTE | 2020-02-20 10:16 | BH.SGPN.GN ---
This psychotherapy group was provided via telehealth using two-way, real-time interactive telecommunication technology between the patients and the provider. The interactive telecommunication technology included audio and video. The patient was offered telemedicine as an option for care delivery during the COVID-19 pandemic and consented to this option. Patient location: [place] Provider located at [facility] Behaviors/Verbalizations/Mental Status: []Client alert and oriented, casually dressed and groomed. Eye contact good. Motor activity appropriate. Speech within normal limits. Affect congruent, mood euthymic. Thoughts linear, logical, no signs of hallucinations or delusions. Client Response/Progress/Benefit: [] Client was attentive and actively engaged throughout AEB taking notes and providing input. Participated in discussion of the quote and shared agreeing that choosing a healthier path in life can be difficult. Expressed ?fear holds me back from all of my change I need to do?. The group worked together to identify barriers that may prevent choosing a new and healthier path to mental wellness which included; not wanting the change/lack of readiness, lack of motivation and willingness to put forth effort, limited support, as well as having a negative or distorted perspective. Attentive during psychoeducation on the chapters of life, providing insight to distinguishing factors in each chapter. Benefited from increased awareness and education on barriers to choosing new wellness paths and the different chapters of life experienced in taking a new path. Client willingly participated in processing portion. Progress noted in pt ability to connect with materials discussed as well as provide increased input. Continues to struggle with distorted thoughts impacting depression. Will continue IOP tx to further reduce anxiety and depression, promote healthy coping, while improving client?s ability to function at baseline. Narrative Note: []
--- NOTE | 2020-02-20 11:15 | BH.SGPN.GN ---
This psychotherapy group was provided via telehealth using two-way, real-time interactive telecommunication technology between the patients and the provider. The interactive telecommunication technology included audio and video. The patient was offered telemedicine as an option for care delivery during the COVID-19 pandemic and consented to this option. Patient location: [place] Provider located at [facility] Behaviors/Verbalizations/Mental Status: []Client alert and oriented, casual dress, hygiene tended to. Eye contact good. Motor activity appropriate. Speech within normal limits. Affect congruent, mood dysthymic. Thoughts linear, logical, no signs of hallucinations or delusions. Client Response/Progress/Benefit: []Client was an engaged participant in group discussion, contributing to discussion at times and listened attentively to others. Client reported believes she is currently in chapter 3? because I always end up in the same place. Client stated there are some coping skills she isn't ready to give up even though she recognizes the skills aren't healthy. Completed worksheet and willing to share with the group. Pt stated negative thinking, fear, habit, core beliefs, and anger that life didn't boot turner as plan are currently keeping her stuck from progress. Pt reported she will work on decreasing fear by doing at least one thing that she is afraid of before Wednesday. Benefited from group by identifying thoughts and behaviors that have kept her stuck and identifying goal to promote progress. Will continue in IOP to increase use of healthy coping, challenge negative thoughts and prevent decompensation. Narrative Note: []
--- NOTE | 2020-02-21 10:15 | BH.SGPN.GN ---
This psychotherapy group was provided via telehealth using two-way, real-time interactive telecommunication technology between the patients and the provider. The interactive telecommunication technology included audio and video. The patient was offered telemedicine as an option for care delivery during the COVID-19 pandemic and consented to this option. Patient location: [place] Provider located at [facility] Behaviors/Verbalizations/Mental Status: []Client alert and oriented, casual dress, hygiene tended to. Eye contact good. Motor activity appropriate. Speech within normal limits. Affect constricted, mood dysthymic. Thoughts linear, logical, no signs of hallucinations or delusions. Client Response/Progress/Benefit: []Pt passive participant AEB pt providing limited input during discussion, however appeared to listen attentively to others. When processing quote pt connected with the importance of being flexible because recognizes if rigid in her thinking she would eventually ?break?. Group identified being resilient is important because helps people bounce back from hardships. Pt worked cooperatively with group to identify how different characteristics can increase resiliency. Pt seemed to benefit from increasing awareness of strategies to increase personal resilience. Pt to continue IOP to increase consistent application of healthy coping, challenge distorted thoughts and prevent decompensation. Narrative Note: []
--- NOTE | 2020-02-21 11:14 | BH.SGPN.GN ---
This psychotherapy group was provided via telehealth using two-way, real-time interactive telecommunication technology between the patients and the provider. The interactive telecommunication technology included audio and video. The patient was offered telemedicine as an option for care delivery during the COVID-19 pandemic and consented to the option. Patient location: [place]. Provider located at [facility] Behaviors/Verbalizations/Mental Status: []Client alert and oriented, casually dressed and groomed. Eye contact good. Motor activity appropriate. Speech within normal limits. Affect congruent, mood euthymic. Thoughts linear, logical, no signs of hallucinations or delusions. Client Response/Progress/Benefit: []Client engaged participant as evidenced by client providing input throughout discussion and listening attentively to peers. Client worked cooperatively with peers to identify how each resiliency component can help increase personal resiliency. Client identified current stressors in her life that she would like to become more resilient towards. Client reported she wants to work on the resilience component of self-awareness by practicing a self check-in every night. Client identified personal resilience factors she possesses that will support client in this goal which included positive self-talk, challenging distortions, and taking decisive action. Client appeared to benefit from identifying goal to improve personal resilience factors. Client to continue IOP tx to further decrease depression and anxiety symptoms while increasing daily functioning. Narrative Note: []
--- NOTE | 2020-02-21 11:52 | PCM.BH.PN_ITS ---
Progress Note Progress Note: History of Present Illness/Interim History: [] The patient is a 29-year-old female who is seen in follow-up at the [facility] behavioral health IOP program. Patient has a history of depression, PTSD, bipolar disorder, anxiety and ADHD. I last saw the patient 3 weeks ago. Patient says that she feels stable. The patient is seen via telehealth due to the coronavirus pandemic. The patient is currently quarantined due to her brother having been recently ill and her parents being immunologically compromised. Patient feels that her symptoms of depression and anxiety are still improving slowly. She still has moments of depression but overall her mood is continuing to improve. She denies any suicidal ideation whatsoever. She denies any thoughts of self-harm. She denies hopelessness. She denies any passive thoughts that she would not care if she . She says she actually has fleeting thoughts of self-harm but she says she has not acted out on them since I saw her last. The patient feels she is benefiting from the IOP program and learning skills to help her deal with her issues. 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 She is continuing to follow-up with her outpatient psychiatrist to manage her medications. She is exercising and walking her dog. Her sleep is okay but she does wake up on occasion. She still gets occasional panic attacks in the evening but she thinks overall they are less severe than they were before. She says she feels the virus has distracted me from myself. She reports compliance with her medications. Current Psychiatric Medications: [] Risperdal 1 mg p.o. twice daily; lithium carbonate 10 mg p.o. daily; Klonopin 1 mg p.o. twice daily; Adderall XR 20 mg p.o. every morning (insurance is not wanting to pay for Adderall so she is going to see her outpatient psychiatrist today and and there can a change her to a different stimulant). Mental Status Examination: [] Patient is a 19-year-old female who appears normal for stated age and is casually dressed and groomed with good hygiene. She has no psychomotor agitation or retardation. She is cooperative and has good eye contact. Her speech is normal rate and rhythm and fluent with no pressure. Her mood is mildly depressed and her affect is constricted. Thought processes goal-directed and organized. Thought content: There is no evidence of suicidal or homicidal ideation or plan. There is evidence of fleeting thoughts of self- harm but she has not done any cutting or other self-harm. There is no evidence of passive thoughts anymore. Judgment is intact. Insight: Some present. Impulsivity: Moderate. Diagnoses: [] Bosque I: [] Bipolar 1 disorder, most recent episode depressed, severe without psychosis (resolving); PTSD; DIONE; ADHD; history of anorexia with purging by emesis Bosque II: [] Deferred Bosque III: [] Atrial fibrillation and MTHFR gene Bosque IV:[]] Primary support and health worries Plan: [] The patient will continue the behavioral health IOP program at [facility] as the support, structure, education, individual and group therapy will hopefully prevent worsening of the patient's symptoms which might require hospitalization. The patient felt safe during the interview and if at any time she is not feel safe she will let us know or go to the emergency room. The risk, options, and possible complications and side effects of medication were discussed with the patient and she understands and accepts these. No medication changes were made as the patient is continuing to follow-up with her outpatient psychiatric provider for medication management.
--- NOTE | 2020-02-22 11:26 | BH.MDN ---
Multi-Disciplinary Note - Note 45-min Individual Time Started:: 10:35 Date: 02/22/20 Purpose of session/treatment goals addressed:: Purpose of session was to assess pt's current symptoms and stressors. Other topics included: reviewing homework from last session, identifying IOP treatment progress, and setting small goals for the week. Eye Contact:: Good Motor Activity:: Appropriate Appearance:: Casual Speech:: Appropriate Mood:: Euthymic, Anxious Affect:: Congruent Thoughts:: Linear, Logical, No evidence of hallucinations/delusions noted Staff Interventions:: Therapist used open ended questions to elicit pt's current symptoms and sterssors. Therapist reviewed homework from last session. Elicited pt's thoughts about treatment progress. Processed concerns about maintaining progress once discharge from [facility]. Assisted pt with establishing small goals to accomplish over next week. Provided support by using active listening and validating emotions. Client Response:: This counseling session was provided via telehealth using two-way, real-time interactive telecommunication technology between the patient and the clinician. The interactive telecommunication technology included audio and video. The patient was offered telehealth as an option for care delivery during the COVID-19 pandemic and consented to this option. Patient location: [place]. Provider located at [facility]. Pt reported she did accomplish her goals from last individual session of working on art, walking dog, exercise bike, and create uplifting art piece. Pt stated she didn't like the uplifting art piece she completed because messed up on what part. Pt reported she did work on a commissoned art piece the past couple of days which makes her feel accomplished. Pt stated she feels uplifted that she recieved positive feedback from the person buying her art. Pt reported she has not been exercising since this weekend because hasn't had the motivation. Pt stated overall her mood has been more positive the last couple of days. Pt reported her self-harm and suicidal thoughts are decreasing. Pt stated combination of medications, individual counseling, and group counseling are helping improve her mood. Pt agreed it could be helpful to independently set daily goals. Pt stated she believes the isolation is starting to get to her because feels trapped. Pt reported it's hard to cope with the new normal of not being able to get out of the house whenever she wants. Pt stated it's really challenging to not know how long the custodial in order is going to last which increases anxiety. Pt reported in regards to treatment progress she is doing a lot more, feeling depressed less often, engaging with the world, and engaging in activities that she used to enjoy. Pt reported over the next week she will work on art commisions at least 3 times, will use exercise bike at least 5 times, everyday will walk dog if weather permits, paint one piece, and at least 3 fun pieces of art. Risks/Concerns:: Pt denies current suicidal ideation, plan or intention to date. Progress Toward Goals/Plan:: Progress noted with pt reporting improved mood, decreased suicidal and self-harm thoughts, and increased engagement with activities used to enjoy. Pt expresses started to struggle with being quarantining due to coronavirus. Pt worried about being able to maintain progress once discharges from IOP. Pt continue IOP to continue use of healthy coping, increase self-accountability and prevent decompensation. Time Stopped:: 11:17
--- NOTE | 2020-02-22 15:08 | BH.TPR ---
Treatment Plan Review Date of Admission:: 01/19/20 Date of Treatment Plan Review:: 02/22/20 Admitting Diagnoses:: Bipolar 1 disorder, current episode depressed, severe without psychosis; PTSD; DIONE; ADD; history of anorexia with purging by emesis. Diagnosis Code(s):: F 31.4 Current Diagnoses:: Bipolar 1 disorder, current episode depressed, severe without psychosis; PTSD; DIONE; ADD; history of anorexia with purging by emesis. Diagnosis Code(s):: F 31.4 Patient's Response to Treatment:: Attending program consistently. Active participant. Completed DSM-5 cross cutting scales which indicates a 61% reduction in symptoms since starting the program. Notes 71% reduction in depression scores and 58% reduction in anxiety scores. She continues to utilize skills. Significant progress noted. DSM5 cross-cutting scales indicate reduced symptoms at 4 weeks. Utilizing skills. We discussed discharge. Plan is to discharge in 2-3 weeks. Encouraged pt to set up appointment with her outpatient MH therapist for week after discharge and schedule with psychiatrist for after discharge from IOP. Will continue in IOP to maintain gains and prevent decompensation. Treatment plan goals still left to accomplish Status of Current Problems and Symptoms: Struggles at times with daily ruminations, self-harm thoughts (non-suicidal), low motivation and dysthymia however much improved. Problem #1 Problem Name:: Depression Status of Goals:: Pt is making progress on objectives 1 and 2. Obj 1- Pt has increased awareness and ability to identify negative self-talk messages however struggles to replace w/o guidance. Obj 2- Notes 71% reduction in depression in DSM5 questionnaire. Team Recommendations:: continue with IOP as she has been responding well. Problem #2 Problem Name:: Anxiety Status of Goals:: Obj1- Pt is able to identify several healthy coping skills to manage anxious symptoms. Could benefit from continuing to reinforce healthy coping skills in this area. obj2- 58% reduction in anxiety scores on DSM 5 questionnaire. Will maintain goal to keep current reduction of anxiety or decrease anxiety further. Team Recommendations:: Continue with IOP as she is responding well. Plan to discharge in 2 weeks.
--- NOTE | 2020-02-27 09:02 | BH.SGPN.GN ---
This psychotherapy group was provided via telehealth using two-way, real-time interactive telecommunication technology between the patients and the provider.?The interactive telecommunication technology included audio and video.? ?The patient was offered telemedicine as an option for care delivery during the COVID-19 pandemic and consented to this option. ?Patient location: [place] ?Provider located at [facility] Behaviors/Verbalizations/Mental Status: []Client alert and oriented, appropriately groomed and casual in appearance. Eye contact good. Motor activity appropriate. Speech within normal limits. Affect congruent, mood anxious. Thoughts linear, logical, at times appearing distracted by own thought, no signs of hallucinations or delusions. Reviewed daily symptom tracker and client denies any suicidal ideation, plan, or intent at this time. Client Response/Progress/Benefit: [] Pt was an active participant in group discussion AEB listening to peers, providing some feedback, and openly processing with the group. Emotion for today is a little bit anxious. Pt identified mental health positive as being able to not only complete some of the art she had commissions for but also engage in freehand drawing which is something she has not done in quite some time. Shared this helped improve self-esteem and feel more like herself. Pt stated additional mental health positive as challenging herself not to become overly focused on the tension between her parents and instead use internal skills of art and music to reduce anxiety when in the same room. Expressed current stressor as needing to drive to the a new bank and feeling nervous about never being there before. She was receptive of and appeared to benefit from recommendations provided by the group for reducing driving anxiety. Progress noted in pt ability to more actively apply opposite action skills to reduce depression and improve self-care. Continued IOP tx recommended to continue application of healthy coping skills, increase consistent skill application, and prevent decompensation. Narrative Note: []
--- NOTE | 2020-02-27 10:18 | BH.SGPN.GN ---
This psychotherapy group was provided via telehealth using two-way, real-time interactive telecommunication technology between the patients and the provider.?The interactive telecommunication technology included audio and video.? ?The patient was offered telemedicine as an option for care delivery during the COVID-19 pandemic and consented to this option. ?Patient location: [place] ?Provider located at [facility] Behaviors/Verbalizations/Mental Status: []Client alert and oriented, casually dressed and groomed. Eye contact good. Motor activity appropriate. Speech within normal limits. Affect constricted, mood anxious. Thoughts linear, logical, no signs of hallucinations or delusions. Client Response/Progress/Benefit: []Client responded well to session, listening attentively and nodding frequently during discussion. Client connected with the group topic of crisis and helped to define crisis. Group identified examples of potential crises to include loss of a loved one, relationship problems, divorce, job loss, the current COVID-19 pandemic, and medical problems. Connected with discussion on how coping with external crises by using unhealthy coping skills could result in a personal crisis. Group identified unhealthy coping skills to include; using substances, denial, avoidance/isolation, anger outbursts, suicidal thoughts, and overscheduling. Group reported that it is important to have awareness of warning signs.Group identified warning signs for crisis and Client completed the personal warning signs worksheet. Identified crisis warning signs to included apathy, panic attacks, and self-harm. Benefited by increasing awareness of crisis and personal warning signs. Progress noted in client?s report of being more productive and utilizing calming coping skills out of IOP. Will continue IOP tx to promote mood stability and further decrease intensity of skills. Narrative Note: []
--- NOTE | 2020-02-28 09:05 | BH.SGPN.GN ---
This psychotherapy group was provided via telehealth using two-way, real-time interactive telecommunication technology between the patients and the provider. The interactive telecommunication technology included audio and video. The patient was offered telemedicine as an option for care delivery during the COVID-19 pandemic and consented to this option. Patient location: [place] Provider located at [facility] Behaviors/Verbalizations/Mental Status: []Client alert and oriented, casually dressed and groomed. Eye contact good. Motor activity appropriate. Speech within normal limits. Affect constricted, mood anxious. Thoughts linear, logical, no signs of hallucinations or delusions. Reviewed client?s symptom tracker, no signs of suicidal ideation, plan, or intent as of 02/28/20. Client Response/Progress/Benefit: []Client responded well to session, engaged and participating throughout session. Client reports feeling a bit stressed today. Client stated she is feeling stressed because her parents are fighting and because everyone is in quarantine, client is constantly around them. Client shared she has been using art to help cope with the stress of her parents fighting. Client's mental health wins today include; challenging anxious and other negative thoughts as well as accomplishing going out and getting errands done. Client reports a lot of anxiety about COVID-19 so it is significant that she was able to go out in public without having a panic attack. Client shared she told herself I can push through this. Client appeared to benefit from reflecting on her application of coping skills and reduced avoidance behaviors. Will continue IOP tx as client has shown progress in reducing symptoms, but she can further benefit from increasing emotional regulation skills. Narrative Note: []
--- NOTE | 2020-02-28 10:16 | BH.SGPN.GN ---
This psychotherapy group was provided via telehealth using two-way, real-time interactive telecommunication technology between the patients and the provider. The interactive telecommunication technology included audio and video. The patient was offered telemedicine as an option for care delivery during the COVID-19 pandemic and consented to this option. Patient location: [place] Provider located at [facility] Behaviors/Verbalizations/Mental Status: []Client alert and oriented, casual dress, hygiene tended to. Eye contact good. Motor activity appropriate. Speech within normal limits. Affect constricted, mood dysthymic. Thoughts linear, logical, no signs of hallucinations or delusions. Client Response/Progress/Benefit: []Pt semi-active participant as evidenced by pt providing limited input during discussion however, did appear to listen attentively to others. Pt worked cooperatively with group to identify how we define ourselves which included: upbringing, societal expectations, our abilities, accomplishments, failures, education, and material things. 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 Pt able to recognize the negative impact of defining self by one thing or quality. Pt worked with group to identify that stigma can keep people from the following: connecting with others, difficulty enjoying the moment, going after a job or goals, and asking for help. Pt seemed to benefit from increased awareness of how mental health stigma can impact progress. Pt to continue IOP to increase consistent application of healthy coping, challenge distorted thoughts and prevent decompensation. Narrative Note: []
--- NOTE | 2020-02-28 11:19 | BH.SGPN.GN ---
This psychotherapy group was provided via telehealth using two-way, real-time interactive telecommunication technology between the patients and the provider. The interactive telecommunication technology included audio and video. The patient was offered telemedicine as an option for care delivery during the COVID-19 pandemic and consented to this option. Patient location: [place] Provider located at [facility] Behaviors/Verbalizations/Mental Status: []Pt eye contact good, casually dressed, motor activity appropriate, speech normal rate and tone though quiet, mood anxious and euthymic, congruent affect, thoughts linear and intact, no evidence of delusions or hallucinations. Client Response/Progress/Benefit: [] Client responded well to session AEB listening and taking notes, as well as providing some input to discussion. Engaged in activity about facts and statistics of mental illness. Group connected with the mental health statistics, recognizing the prevalence of mental health. Group brainstormed strategies to combat social and perceived stigma which included: educating others and themselves, no longer using negative language about mental illness, being open about mental health, volunteering, and not using deflection like humor or joking to minimize symptoms. Client stated she believes she would benefit from decreasing her use of self-deprecating jokes often used as a means of minimizing in order to reduce social and perceived mental health stigma. Appeared to benefit from increasing awareness of strategies to combat stigma. Will continue IOP tx to reduce depression, improve application of behavior activation skills, and prevent decompensation. Narrative Note: []
--- NOTE | 2020-02-28 14:35 | BH.MDN ---
Multi-Disciplinary Note - Note 30-min Individual Time Started:: 12:15 Date: 02/28/20 Purpose of session/treatment goals addressed:: Purpose of session was to assess pt's current symptoms and stressors. Other topics included: reviewing homework from last session, thought challenge, and setting goals for the week. Eye Contact:: Good Motor Activity:: Appropriate Appearance:: Casual Speech:: Appropriate Mood:: Depressed Affect:: Constricted Thoughts:: Linear, Logical, No evidence of hallucinations/delusions noted Staff Interventions:: Therapist used open ended questions to elicit pt's current symptoms and stressors. Therapist reviewed homework from last session. Elicited barriers to pt not completing certain goals from last session. Therapist attempted to help pt identify triggers to pt self-injurying this weekend. Therapist reviwed thought challenge strategies. As a strategy to help pt challenge her negative thoughts, therapist gave pt homework to create an art piece in which she identifies positive qualities about herself and reasons to be alive. Therapist elicited goals pt wants to accomplish within the next week. Client Response:: This counseling session was provided via telehealth using two-way, real-time interactive telecommunication technology between the patient and the clinician. The interactive telecommunication technology included audio and video. The patient was offered telehealth as an option for care delivery during the COVID-19 pandemic and consented to this option. Patient location: [place]. Provider located at [facility]. Pt stated she has been feeling ?down? since yesterday. Pt reported the only trigger she can think of is that her ADHD medication has recently changed from extended release to regular release. Pt reported yesterday she didn?t get anything done, just watched tv and slept. Pt stated she didn?t have any motivation or drive to do anything different. Pt reported over the weekend she did engage in self-harm. Pt stated there was nothing in particular that was going on just had it in her head to self-harm. Pt reported she didn?t utilize any other skills prior to self-harm. Pt shared self-harm uplifts her mood. Pt reported she walked her dog, completed an art commission, and jet a lot. Pt stated she joined some art challenge online. Pt did not accomplish goals of exercise bike or trying to paint. Pt reported she didn?t do those goals because ?I didn?t want to?. Pt reported today she is going to work on ?fun art? and work on some art commissions. Pt stated she can facetime with her [id number] to make social connection. Pt reported she will either go walking or use her exercise bike. Pt stated she has been having negative thoughts of ?I hate you? or ?you should ?. Pt?s homework is to create a drawing that includes positive qualities about herself and reasons to live. Pt reported the house has been more tense because her parents are fighting. Pt stated her mom gets frustrated with her dad if he leaves the house because she is anxious about getting sick. Pt reported her mom will talk to pt about her frustrations with pt?s dad, which puts pt in a awkward position. Risks/Concerns:: pt denies suicidal ideation, plan or intention to date. Pt reported self-harming this weekend, however reports she doesn't have any motivation or drive to stop this behavior. Therapist encouraged pt to get rid of sharp objects. Pt stated her self-harming was non-suicidal behavior. Feels able to keep herself safe. Progress Toward Goals/Plan:: Pt progressing with completing majority of goals established during individual counseling. Pt exhibiting setback with reporting self-harming this weekend and feeling depressed the last couple of days. Pt lacks insight into triggers of depressed state and self-injury. Pt to continue IOP to increase self-awareness, challenge negative thoughts and prevent decompensation. Time Stopped:: 12:45
--- NOTE | 2020-02-29 09:00 | BH.SGPN.GN ---
This psychotherapy group was provided via telehealth using two-way, real-time interactive telecommunication technology between the patients and the provider. The interactive telecommunication technology included audio and video. The patient was offered telemedicine as an option for care delivery during the COVID-19 pandemic and consented to this option. Patient location: [place] Provider located at [facility] Behaviors/Verbalizations/Mental Status: []Client alert and oriented, casual dress, hygiene tended to. Eye contact good. Motor activity appropriate. Speech within normal limits. Affect congruent, mood euthymic. Thoughts linear, logical, no signs of hallucinations or delusions. Client Response/Progress/Benefit: []Pt responded well to session as evidenced by pt listening attentively to others and openly sharing thoughts and feelings. Pt reported a mental health positive is completing her homework from individual counseling yesterday. Pt showed the group the art project she completed of identifying positive attributes about herself. Pt reported additional mental health positive as accomplishing goal of working out on her exercise bike. Pt stated her current stressor is covid because anxious about when it will be over and worried about getting the virus. Pt seemed to benefit from support from peers. Pt to continue IOP to continue use of healthy coping, challenge negative thoughts and prevent decompensation. Narrative Note: []
--- NOTE | 2020-02-29 10:11 | BH.SGPN.GN ---
This psychotherapy group was provided via telehealth using two-way, real-time interactive telecommunication technology between the patients and the provider. The interactive telecommunication technology included audio and video. The patient was offered telemedicine as an option for care delivery during the COVID-19 pandemic and consented to this option. Patient location: [place] Provider located at [facility] Behaviors/Verbalizations/Mental Status: [] Pt eye contact good, casually dressed, motor activity appropriate, speech normal rate and tone, mood anxious, dysthymic, congruent affect, thoughts linear and intact, no evidence of delusions or hallucinations. Client Response/Progress/Benefit: []Client was a semi-active participant AEB completing worksheet and listening attentively to peers. Client worked with the group to define anger and its causes, as well as the potential consequences of unhealthy management of anger. These included: losing relationships, guilt, damaged property, increased rumination, and other?s avoiding us. Worked with group to review anger responses and shared that her common anger response includes: avoiding, minimizing, ?angry face?, crying and shutting down. Client appeared to benefit from psychoeducation on the negative impacts of unmanaged anger and increasing self-awareness of own anger signs. Progress noted as client reports increased ability to identify healthy coping skills, though struggles at times with consistency. Will continue IOP tx to prevent decompensation, promote healthy change behaviors, and improve mood stability. Narrative Note: []
--- NOTE | 2020-02-29 11:08 | BH.SGPN.GN ---
This psychotherapy group was provided via telehealth using two-way, real-time interactive telecommunication technology between the patients and the provider.?The interactive telecommunication technology included audio and video.? ?The patient was offered telemedicine as an option for care delivery during the COVID-19 pandemic and consented to this option. ?Patient location: [place] ?Provider located at [facility] Behaviors/Verbalizations/Mental Status: []Client alert and oriented, neatly dressed and groomed. Eye contact good. Motor activity appropriate. Speech within normal limits. Affect congruent, mood euthymic. Thoughts linear, logical, no signs of hallucinations or delusions. Client Response/Progress/Benefit: []Client was an engaged participant throughout group AEB client providing input throughout discussion. Client contributed to the continued discussion of how people express anger as well as the underlying emotions of anger. Client reported her underlying emotions to anger often include; feeling overwhelmed, feeling invalidated, and feeling stressed. Client helped the group identify common warning signs of anger such as; feeling hot, tense, headaches, and restlessness. Group brainstormed with group healthy coping skills to help manage anger which included: mindfulness, deep breathing, angry dancing, going outside, and progressive muscle relaxation. Client selected wanting to work on progressive muscle relaxation as her coping skill to manage anger. Client appeared to benefit from brainstorming with the group potential strategies to manage anger in healthy ways. Recommended continued IOP to increase healthy coping, increase emotional regulation and improve mood stability. Narrative Note: []
--- NOTE | 2020-03-04 09:02 | BH.SGPN.GN ---
This psychotherapy group was provided via telehealth using two-way, real-time interactive telecommunication technology between the patients and the provider. The interactive telecommunication technology included audio and video. The patient was offered telemedicine as an option for care delivery during the COVID-19 pandemic and consented to this option. Patient location: [place] Provider located at [facility] Behaviors/Verbalizations/Mental Status: []Client alert and oriented, casual dress, hygiene tended to. Eye contact good. Motor activity appropriate. Speech within normal limits. Affect congruent, mood anxious. Thoughts linear, logical, no signs of hallucinations or delusions. Reviewed client's daily symptom tracker. Client's scores for SI were 1/5 which are within her normal range. Client was 0/5 for risk of suicide. Future oriented throughout session. Client Response/Progress/Benefit: []Client responded well to session, attentive and receptive to feedback from peers. Client reports feeling mixed and frustrated today. Client reported overall she has experienced several positives over the weekend, but this week is her birthday week which causes rumination. Client shared she has been thinking about all the things I have not accomplished by this age that client believes she should have by now. Client reported she has been trying to challenge these thoughts, but it is hard at times. The group helped client challenge comparison thoughts and gave client ways to practice self-love. Client's mental health wins today include exercising over the weekend, doing art for pleasure, and connecting with her siblings online. Appeared to benefit from challenging negative thoughts in the moment. Will continue IOP tx as client can continue to reinforce healthy coping skills and improve mood stability. Narrative Note: []
--- NOTE | 2020-03-04 10:07 | BH.SGPN.GN ---
This psychotherapy group was provided via telehealth using two-way, real-time interactive telecommunication technology between the patients and the provider. The interactive telecommunication technology included audio and video. The patient was offered telemedicine as an option for care delivery during the COVID-19 pandemic and consented to this option. Patient location: [place] Provider located at [facility] Behaviors/Verbalizations/Mental Status: []Client alert and oriented, casually dressed and groomed. Eye contact good. Motor activity appropriate. Speech within normal limits. Affect congruent, mood dysthymic. Thoughts linear, logical, no signs of hallucinations or delusions. Client Response/Progress/Benefit: []Client was an semi-active participant AEB client providing limited input during discussion and listening attentively to others. Responded well to prompts. Client connected with discussion on different types of anxiety, as well as the difference between ?normal? anxiety and anxiety disorders. Expressed feeling she could relate to desire to avoid as discussed by fellow participants. Client gained awareness of personal physical symptoms of anxiety which included: fatigue, tight muscles, restlessness, headache, and shortness of breath. Client reports common anxious thoughts include: What if something happens, assumptions, and worry of other?s opinions. Client appeared to benefit from gaining insight to physical signs of anxiety and how thoughts can increase or maintain anxiety. Will continue IOP to increase consistent application of healthy coping skills for mood stabilization, improving change behaviors, and prevent decompensation. Narrative Note: []
--- NOTE | 2020-03-04 11:15 | BH.SGPN.GN ---
Behaviors/Verbalizations/Mental Status: []Client alert and oriented, casual in appearance. Eye contact fair to good. Motor activity appropriate. Speech within normal limits. Affect congruent, mood dysthymic. Thoughts linear, logical, no signs of hallucinations or delusions. Client Response/Progress/Benefit: [] Pt a mostly passive participant AEB providing limited input to discussion, though listened attentively to others. She did well to connect with the discussion reviewing three categories of skills for managing anxiety which included mind-based, body-based, and self-soothing. Pt contributed some ideas and actively took notes as group brainstormed various skills within the different categories. Pt provided example of art as self-soothing. She did well to identify a skill she is willing to practice in each area which included self-soothing as: doing a gratitude journal; mind-based: guided imagery, and body-based: diaphragmic breathing. Pt seemed to benefit from increased awareness of healthy skills to manage anxiety related symptoms and in identifying skills willing to practice outside treatment environment. Progress limited due to difficulties with consistent application of emotion regulation skills outside treatment environment though is making some improvements in this area. Recommended to continue IOP level of care to increase healthy coping skills, continue to promote emotion regulation skills, and prevent decompensation. Narrative Note: []
--- NOTE | 2020-03-05 10:17 | BH.SGPN.GN ---
This psychotherapy group was provided via telehealth using two-way, real-time interactive telecommunication technology between the patients and the provider. The interactive telecommunication technology included audio and video. The patient was offered telemedicine as an option for care delivery during the COVID-19 pandemic and consented to this option. Patient location: [place] Provider located at [facility] Behaviors/Verbalizations/Mental Status: []Client alert and oriented, neatly dressed and groomed. Eye contact good. Motor activity appropriate. Speech within normal limits. Affect constricted, mood dysthymic. Thoughts linear, logical, no signs of hallucinations or delusions. Client Response/Progress/Benefit: []Client receptive of session, engaged throughout. She did well to work with the group to reflect on the quote and discussed the ways in which perspective can impact mental health and one's outlook on stressors. Client shared that being in a group therapy setting gives one a different perspective which can give you more answers and insight. Contributed to group discussion on how one develops perspective. Client worked with group to identify how negative perspective can impact mental health which included: unrealistic expectations, self-sabotage, maintain depression and anxiety, overgeneralizing, increased distorted thoughts, and decreased self-confidence. Client shared having a positive or open-minded perspective can help a person overcome challenges and better manage mental health. Client appeared to benefit from increasing understanding of mental health benefits of a positive perspective and potential consequences to progress when perspective is negative. Progress noted in client's report of applying thought challenging more regularly. Will continue IOP tx to promote use of healthy coping skills, increase mood stability, and further combat distortions. Narrative Note: []
--- NOTE | 2020-03-05 11:17 | BH.SGPN.GN ---
This psychotherapy group was provided via telehealth using two-way, real-time interactive telecommunication technology between the patients and the provider. The interactive telecommunication technology included audio and video. The patient was offered telemedicine as an option for care delivery during the COVID-19 pandemic and consented to this option. Patient location: [place] Provider located at [facility] Behaviors/Verbalizations/Mental Status: []Client alert and oriented, casual dress, hygiene tended to. Eye contact good. Motor activity appropriate. Speech within normal limits. Affect constricted, mood dysthymic. Thoughts linear, logical, no signs of hallucinations or delusions. Client Response/Progress/Benefit: []Client responded well to session, attentive and engaged throughout session. Group shared that if one does not recognize their strengths, it could lead to increased mental health symptoms, and giving up on goals. Client able to identify personal strengths she possesses which includes: artistic, open minded, intelligent, empathetic and kind. Client stated although she could identify strengths she doesn't believe the positives to be true; I feel like Im lying to myself. Pt seemed to benefit from education about needing to rewire the brain by identifying positives multiple times a day in order to change the brain. Appeared to benefit from recognizing personal strengths and identifying strategies to increase recognition of strengths. Progress noted as shown by client being able to identify personal strengths easier. Pt is to discharge from program today due to deciding to move to a different city today. Narrative Note: []
--- NOTE | 2020-03-06 09:06 | BH.SGPN.GN ---
This psychotherapy group was provided via telehealth using two-way, real-time interactive telecommunication technology between the patients and the provider.?The interactive telecommunication technology included audio and video.? ?The patient was offered telemedicine as an option for care delivery during the COVID-19 pandemic and consented to this option. ?Patient location: [place] ?Provider located at [facility] Behaviors/Verbalizations/Mental Status: []Client alert and oriented, appropriately groomed and casual in appearance. Eye contact good. Motor activity appropriate. Speech within normal limits. Affect congruent, mood dysthymic. Thoughts linear, logical, no signs of hallucinations or delusions. Reviewed daily symptom tracker and client denies suicidal ideation, plan, or intent at this time. Client Response/Progress/Benefit: []Pt receptive of session, actively engaged throughout AEB attentively listening to others and openly processing with the group. Identified emotion for the day as ?content?. She did well to identify current mental health wins and indicated that one win was working with her brother to rake leaves for 3 hours. Pt shared that this was a win as it allowed her to get outdoors and spend time with supports, indicating increased ability to enjoy the small things. Pt noted that another win is being able to take time to appreciate her drive to [place] rather than focusing on anxieties. Noted in the past she would have struggled to be able to do so but feels consistent skill application is aiding in overall ability to make progress. Expressed that her current stressor continues to be worries about the COVID-19 pandemic and potential effects on herself and her family. Appeared to benefit from group support and identifying areas of progress in improved mood. Recommended continued IOP tx to further promote healthy change behaviors, maintain stability, and prevent decompensation.?? Narrative Note: []
--- NOTE | 2020-03-06 09:06 | BH.SGPN.GN ---
Behaviors/Verbalizations/Mental Status: []Client alert and oriented, appropriately groomed and casual in appearance. Eye contact good. Motor activity appropriate. Speech within normal limits. Affect congruent, mood anxious, dysthymic. Thoughts linear, logical, no signs of hallucinations or delusions. Reviewed daily symptom tracker and client denies suicidal ideation, plan, or intent at this time. Client Response/Progress/Benefit: []Client actively engaged in session AEB attentively listening to others and openly processing with the group. Reported emotion for the day is ?a little anxious? and indicated that this is due to feeling as though she is ?stuck? and not quite where she wants to be in life. Client did well to work with the group to challenge these thoughts and identify the progress she has made. Client did well to identify current mental health wins and indicated that one win is continuing to create art just for herself and because she wants to. Shared feeling ?more like myself? as a result. Client indicated that another win is making some progress in becoming more consistent with being active. Expressed using her exercise bike yesterday which had been a goal. Appeared to benefit from group support, challenging distorted thoughts, and structure. Recommended continued tx to increase mood stability, reduce depression, improve coping repertoire, and prevent decompensation.? Narrative Note: []
--- NOTE | 2020-03-06 10:15 | BH.SGPN.GN ---
This psychotherapy group was provided via telehealth using two-way, real-time interactive telecommunication technology between the patients and the provider. The interactive telecommunication technology included audio and video. The patient was offered telemedicine as an option for care delivery during the COVID-19 pandemic and consented to this option. Patient location: [place] Provider located at [facility] Behaviors/Verbalizations/Mental Status: []Client alert and oriented, casually dressed and groomed. Eye contact good. Motor activity appropriate. Speech within normal limits. Affect congruent, mood dysthymic. Thoughts linear, logical, no signs of hallucinations or delusions. Client Response/Progress/Benefit: []Client responded well to session, attentive and providing input to discussion. Client reported she connects with quote, but she shared it is not easy to set boundaries due to multiple barriers. Client stated negative thoughts and past experiences can keep people from setting boundaries in the future. Client agreed with peers that without healthy boundaries, one?s mental health can worsen. Group identified the benefits to setting boundaries as well as the consequences of not setting healthy boundaries. Participated in the discussion of benefits of setting boundaries which included; feeling happier, less negative thinking, avoidance of toxic people, and ability to manage mental health better. Client engaged during psychoeducation on the different types of boundaries and able to identify examples of each. Client seemed to benefit from increased awareness of how poor boundaries can negatively impact mental health. Progress AEB client continuing to report reduced suicidal ideations and report of increase physical activity. However, client reports more negative thinking this week. Will continue IOP tx to prevent worsening of symptoms and application of healthy coping skills. Narrative Note: []
--- NOTE | 2020-03-06 11:02 | PCM.BH.PN_ITS ---
Progress Note Progress Note: History of Present Illness/Interim History: [] Patient is a 29-year-old female who was seen in follow-up at the [facility] behavioral health IOP program. The patient has a history of depression, PTSD, bipolar disorder, anxiety and ADHD. I last saw the patient 2 weeks ago via tel ehealth due to the coronavirus pandemic. Patient remains quarantined but is participating in the IOP program by telehealth appointments. She feels that she is overall doing okay and is enjoying the online group experience. She feels she is learning some skills to help her combat the negative thinking that she tends to engage in. She says that her birthday is tomorrow and she will turn 30 and this is somewhat upsetting for her. She feels that she is not where she wants to be in life and and states that she has felt pretty pessimistic about her life for the past 2 years. Birthdays tend to exacerbate these feelings. Her mood she says is still somewhat depressed at times but not all the time each day. She says she is probably depressed only about 2 hours a day now total. She had a few fleeting suicidal thoughts in the past 2 weeks but they were not active thoughts and she did not have a plan as to how she would kill herself. She denies any active suicidal ideation or self-harm or homicidal ideation. She denies any hallucinations or delusions. She continues to try to do creative art daily and to walk her dog and exercise. She says that the last few days it has been hard for her to motivate herself to exercise or walk her dog. She has not had any panic attacks in the last several days. She has been compliant with her medications. Current Psychiatric Medications: [] Risperdal 1 mg p.o. twice daily; lithium carbonate 600 mg p.o. daily; Klonopin 1 mg p.o. twice daily; Adderall 10 mg p.o. twice daily. Mental Status Examination: [] The patient is a 29-year-old female who appears normal for stated age and is casually dressed and groomed with good hygiene. She has no psychomotor agitation or retardation. Eye contact is good. Speech is normal rate and rhythm and fluent with no pressure. Her mood is moderately depressed overall and her affect is constricted. Her thought process is goal- directed and organized. Thought content: Rare fleeting suicidal ideation with no plan. No evidence of active suicidal ideation, homicidal ideation, hallucinations or delusions. No evidence of self-harm or thoughts of self-harm recently. Judgment is intact. Insight: Some present. Impulsivity: Moderate Diagnoses: [] Murphy I: [] Bipolar 1 disorder, most recent episode depressed, severe without psychosis (resolving; PTSD; DIONE ADD; ADHD; history of anorexia with purging by emesis Murphy II: [] Deferred Murphy III: [] Atrial fibrillation and MTHFR gene Murphy IV:[]] Primary support and health issues Plan: [] The patient will continue the behavioral health IOP program at [facility] as the support, structure, education, individual and group therapy will hopefully prevent worsening of the patient's symptoms which might require hospitalization. The patient felt safe during the interview and if in any time she does not feel safe she will let us know or go to the emergency room. The risk, options, and possible complications and side effects of the medication were discussed with the patient and she understands and accepts these. No medication changes were made as the patient is continuing to see her outpatient psychiatric provider for her medication management.
--- NOTE | 2020-03-06 14:09 | BH.MDN ---
Multi-Disciplinary Note - Note 30-min Individual Date: 03/06/20
--- NOTE | 2020-03-12 09:03 | BH.SGPN.GN ---
This psychotherapy group was provided via telehealth using two-way, real-time interactive telecommunication technology between the patients and the provider. The interactive telecommunication technology included audio and video. The patient was offered telemedicine as an option for care delivery during the COVID-19 pandemic and consented to this option. Patient location: [place] Provider located at [facility] Behaviors/Verbalizations/Mental Status: []Client alert and oriented, casual dress, hygiene tended to. Eye contact good. Motor activity appropriate. Speech within normal limits. Affect constricted, mood euthymic. Thoughts linear, logical, no signs of hallucinations or delusions. Reviewed client?s symptom tracker, pt denies current suicidal thoughts or intention to date. Client Response/Progress/Benefit: []Pt responded well to session AEB pt sharing thoughts and feelings and listening attentively to peers. Pt reported mental health positive as accomplishing at least one piece of work everyday since Wednesday. Pt stated additional mental health positive as taking her dog for a walk yesterday and spending a lot of time outside. Pt reported stressor is having several panic attacks throughout the night that kept waking her up. Pt reported she hasn't experienced a nighttime panic attack in some time and can't identify a specific trigger. Pt stated compared to last week her mood has improved with decreased negative thoughts and engaging in more fun activities with others. Progress noted with pt reporting improved mood and following through with goals set in individual counseling. Pt to continue IOP to continue use of healthy skills, challenge negative thoughts and prevent decompensation. Narrative Note: []
--- NOTE | 2020-03-12 10:15 | BH.SGPN.GN ---
This psychotherapy group was provided via telehealth using two-way, real-time interactive telecommunication technology between the patients and the provider.?The interactive telecommunication technology included audio and video.? ?The patient was offered telemedicine as an option for care delivery during the COVID-19 pandemic and consented to this option. ?Patient location: [place] ?Provider located at [facility] Behaviors/Verbalizations/Mental Status: []Client alert and orient. Appearance casual and appropriately groomed. Speech an appropriate rate and tone, limited input. Motor activity WNL. Mood anxious and dysthymic, affect congruent to mood. No evidence of delusion or hallucinations.? Client Response/Progress/Benefit: []Pt receptive of session, engaged throughout the discussion however mostly passive in participation. Listened as the group worked to define healthy communication and it?s various attributes, providing some input throughout. Discussed benefits of healthy communications on mental health and maintaining healthy relationships which included: improved mood, increased ability to get your point across, needs are more likely to be met, and healthier relationships. Group additionally discussed potential barriers to communication including: shutting down, vagueness, fear of judgement, and past negative experiences. Pt receptive of and appeared to benefit from psychoeducation portion discussing different styles of communication. Pt noted identifying with passive communication throughout most of her life. Explained that this prevents getting her needs met or feeling heard which results in increased rumination. Progress noted in increased insight into personal communication styles and barriers. Pt to continue in IOP tx to promote healthy change behaviors, improve mood stability, and prevent decompensation. Narrative Note: []
--- NOTE | 2020-03-12 11:16 | BH.SGPN.GN ---
Behaviors/Verbalizations/Mental Status: []Client alert and oriented, casual dress, hygiene tended to. Eye contact good. Motor activity appropriate. Speech within normal limits. Affect constricted, mood euthymic. Thoughts linear, logical, no signs of hallucinations or delusions. Client Response/Progress/Benefit: []Client responded well to session AEB client listening attentively to others and providing input during discussion at times. Client further processed her communication style and ways in which being a passive communicator has impacted client. Client worked with group to identify strategies to improve communication. Client listened attentively as the group reviewed the strategy DEAR MAN which is a technique to help individuals communicate needs more effectively. Client shared she does not express her needs which leads to rumination. Client receptive to selecting one of the DEAR MAN strategies for homework to improve communication. Client to continue IOP to improve mood stability, further increase the use of healthy coping skills, and reduce distortions. Narrative Note: []
--- NOTE | 2020-03-14 10:14 | BH.SGPN.GN ---
This psychotherapy group was provided via telehealth using two-way, real-time interactive telecommunication technology between the patients and the provider.?The interactive telecommunication technology included audio and video.? ?The patient was offered telemedicine as an option for care delivery during the COVID-19 pandemic and consented to this option. ?Patient location: [place] ?Provider located at [facility] Behaviors/Verbalizations/Mental Status: []Client alert and orient. Appearance casual and appropriately groomed. Speech an appropriate rate and tone. Motor activity WNL. Mood anxious and dysthymic, affect congruent. No evidence of delusion or hallucinations. Client Response/Progress/Benefit: []Client responded well to session, attentive and engaged throughout, though providing limited input and remained a mostly passive participant. Listening throughout group discussion defining conflict and the differences between internal and external conflict. Group reported the benefits of addressing conflict included: increased self-confidence, increased trust in relationships, having needs be met, and preventing further conflict from arising. Group additionally identified and discussed consequences of not addressing conflict in healthy ways which included: decreased self-esteem, damaged relationships, increased mental health symptoms, and additional stressors developing as a result. Benefited as client was able to identify current conflict style and how it impacts mental health. She noted often using avoiding or accommodating approaches to conflict. Shared that this has led to her needs not being met and opinion not heard. Shared wanting to become more directive in conflict settings. Progress noted as shown by client?s report of improved insight, though continues to struggle with self-doubt and anxiety. Will continue IOP tx to promote application of healthy skills, reduce mental health sx severity, and further improve daily functioning. Narrative Note: []
== END 2020-03-14 23:59 ==
LOC: BHIOP 09:00
PROVIDERS: PCP Family Medicine; Referring Provider Psychiatry & Neurology Psychiatry; Visit Provider Psychiatry & Neurology Psychiatry
DX: F31.4 Bipolar disorder, current episode depressed, severe, without psychotic features (principal); F43.10 Post-traumatic stress disorder, unspecified; F41.1 Generalized anxiety disorder; F90.9 Attention-deficit hyperactivity disorder, unspecified type; R63.0 Anorexia; I48.91 Unspecified atrial fibrillation; E72.12 Methylenetetrahydrofolate reductase deficiency; Z79.899 Other long term (current) drug therapy
CPT/HCPCS: H0035; 90832; 90834; 90853

== ENCOUNTER 2020-03-18 09:00 | Outpatient (RCR) | payer MEDICARE, MEDICAID, SELFPAY ==
[2020-03-15 00:18] VITALS: BP 94/60; PULSE 88; TEMP 36.4
--- NOTE | 2020-03-18 09:08 | BH.SGPN.GN ---
Addendum entered and electronically signed by Meghan Robbins LSW 03/18/20 14:29: This psychotherapy group was provided via telehealth using two-way, real-time interactive telecommunication technology between the patients and the provider.?The interactive telecommunication technology included audio and video.? ?The patient was offered telemedicine as an option for care delivery during the COVID-19 pandemic and consented to this option. ?Patient location: [place] ?Provider located at [facility] Original Note: Behaviors/Verbalizations/Mental Status: []Client alert and oriented, appropriately groomed and casual in appearance. Eye contact fair to good. Motor activity appropriate. Speech within normal limits. Affect N/A due to pt in group via telehealth, mood anxious and dysthymic. Thoughts linear, logical, no signs of hallucinations or delusions. Reviewed daily symptom tracker and client denies suicidal ideation, plan, or intent at this time. Client Response/Progress/Benefit: []Pt receptive of session, engaged throughout AEB attentively listening to others and openly processing with the group. Limited feedback and mostly passive in participation. Identified emotion for the day as ?numb and anxious? as she is struggling with feeling disconnected and worried about maintaining her progress post IOP discharge. She did well to identify current mental health wins and indicated that one win was following through with her goal of doing something artistic each day despite not wanting to. Pt struggled at times with focusing on not liking the art that she had created rather than the fact she had completed her goal. Receptive of being challenged on disqualifying positives. Pt noted that another win is being able to reach out to her brothers and plan a virtual [employer] game night. Shared this helped to remind her of the positive supports in her life and allowed her to be more present. Expressed that his current stressor is upcoming discharge scheduled for later in the week. Receptive of discussion that some anxiety is good as it means she is paying attention and wants to succeed. Appeared to benefit from group support. Recommended continued IOP tx to further promote healthy change behaviors, maintain stability, and prevent decompensation while completing aftercare planning.?? Narrative Note: []
--- NOTE | 2020-03-18 10:15 | BH.SGPN.GN ---
This psychotherapy group was provided via telehealth using two-way, real-time interactive telecommunication technology between the patients and the provider. The interactive telecommunication technology included audio and video. The patient was offered telemedicine as an option for care delivery during the COVID-19 pandemic and consented to this option. Patient location: [place] Provider located at [facility] Behaviors/Verbalizations/Mental Status: []Client alert and oriented, casually dressed and groomed. Eye contact good. Motor activity appropriate. Speech within normal limits. Affect congruent, mood anxious. Thoughts linear, logical, no signs of hallucinations or delusions. Client Response/Progress/Benefit: []Client responded well to session, attentive and engaged throughout session and activity. Client appeared to connect with the topic of fear of failure. Client was quiet during discussions, but client was taking notes throughout group. Group discussed common initial reactions to failure which included; hopelessness, negative self-talk, self-sabotage, and disappointment. Client connected with the concept that mindset is powerful in determining how a person moves forward after failing. Connected with fear of failure and how fear of failure can impact one?s mental health. Client participated in the activity via telehealth by giving IOP hat and cap opener instructions on where to go. Client appeared to benefit from gaining awareness of the impact of fear of failure can have on one?s mental health and wellbeing. Will continue IOP tx to promote mood stability, establish aftercare, and reinforce healthy coping skills. Narrative Note: []
--- NOTE | 2020-03-18 11:20 | BH.SGPN.GN ---
This psychotherapy group was provided via telehealth using two-way, real-time interactive telecommunication technology between the patients and the provider. The interactive telecommunication technology included audio and video. The patient was offered telemedicine as an option for care delivery during the COVID-19 pandemic and consented to this option. Patient location: [place] Provider located at [facility] Behaviors/Verbalizations/Mental Status: []Client alert and oriented, casual dress, hygiene tended to. Eye contact good. Motor activity appropriate. Speech within normal limits. Affect constricted, mood dysthymic. Thoughts linear, logical, no signs of hallucinations or delusions. Client Response/Progress/Benefit: []Client responded well to session, participating during the group activity and willing to complete the worksheet. Client completed the fear of failure worksheet and reported that fear of failure is keeping client from working on animations. Client able to identify barriers that reinforce his fear of failure which included; avoidance and telling herself she can't do it. Client attentive during discussion of the different strategies to help overcome fear of failure. Group identified strategies such as; positive self-talk, thought challenge, opposite action, keeping track of wins, setting smart goals, and accepting that mistakes happen. Client selected wanting to work on using opposite action to help client overcome fear of failure. Client appeared to benefit from learning ways to overcome fear of failure. Will continue IOP tx to increase the use of healthy coping skills to manage anxiety and depression. Narrative Note: []
--- NOTE | 2020-03-20 09:02 | BH.SGPN.GN ---
This psychotherapy group was provided via telehealth using two-way, real-time interactive telecommunication technology between the patients and the provider. The interactive telecommunication technology included audio and video. The patient was offered telemedicine as an option for care delivery during the COVID-19 pandemic and consented to this option. Patient location: [place] Provider located at [facility] Behaviors/Verbalizations/Mental Status: []Client alert and oriented, casual dress, hygiene tended to. Eye contact good. Motor activity appropriate. Speech within normal limits. Affect constricted, mood anxious. Thoughts linear, logical, no signs of hallucinations or delusions. Reviewed client?s symptom tracker, pt denies current suicidal thoughts or intention to date. Client Response/Progress/Benefit: []Pt responded well to session AEB pt sharing thoughts and feelings openly and listening attentively to peers. 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 Pt stated additional mental health positive as bringing up concern to her outpatient psychiatrist about a medication issue. Pt reported initially she was going to not say anything because was anxious, but was glad she did the anxious thing. Pt stated her stressor is that today is her last day in IOP. Pt reported she is worried about reverting back to previous unhealthy coping skills. Pt able to note lots of progress since starting IOP. Pt reported she is doing more activities then she was prior to IOP like walking dog, art, among other things. Progress noted with pt maintaining safety throughout IOP, improved mood, and increased daily activity. Pt is discharging from IOP today. Narrative Note: []
--- NOTE | 2020-03-20 10:16 | BH.SGPN.GN ---
Behaviors/Verbalizations/Mental Status: []Eye contact is good. Motor activity is appropriate. Appearance is casual. Speech is Appropriate. Mood is dysthymic. Affect is n/a, as pt is telehealth. Thoughts are linear and logical. No evidence of psychosis. Client Response/Progress/Benefit: []Participated throughout group discussion, providing some input and listening attentively. Engaged during psychoeducation portion reviewing fixed mindset. Pt worked with group to identify how a fixed mindset can impact our mental health which included: decreased motivation, giving up when faced with a setback, not asking for help, low self-esteem, and isolation/avoidance. Pt identified one fixed thought she has is, I?ve failed at life?. She did well to recognize that this fixed thought makes her doubt herself and increases depression. Recognized that this fixed thought results in not engaging in activities she enjoys and has led to self-harming behaviors in the past. Benefited from group by increasing awareness of how one's mindset impacts mental health. Pt to discharge from IOP tx on this day given progress made. Recommended continued outpatient tx to maintain gains and prevent decompensation. Narrative Note: []
--- NOTE | 2020-03-20 15:01 | BH.DS_ITS ---
Discharge Summary - Demographics Date of Admission:: 01/19/20 Discharge Date: 03/20/20 Presenting Problems at Admission:: Pt referred by her outpatient therapist due to recent inpatient hospitalization and depressive and anxious symptoms worsening. Pt endorsed depressed mood, isolation, hopelessness, ruminating and worthlessness. She also reported signficiant guilt about not being able to work. 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 At admission pt reported she has panic attacks most nights in the evening before going to sleep. Discharge Diagnoses:: F 29.4 Bipolar 1 disorder, most recent episode depressed, severe without psychosis (resolving); PTSD; DIONE; ADD; ADHD; history of anorexia with purging by emesis Reason for Discharge:: Pt has made significant treatment progress and no longer meets criteria for IOP level of care. - Treatment Progress During Treatment & Response: Since starting IOP pt has made significant progress with reduction in depressive symptoms and a slight decrease in anxious symptoms compared to when she first started IOP. Per DSM 5 questionnaire pt has made a 71% reduction in depressive symptoms and a 33% reduction in anxious symptoms. Compared to pt's treatment review pt's anxiety increased in the past four weeks. This could be due to continued anxiety related to coronavirus and pt staying quarantined for the past several weeks. Pt overall responded well to program. Pt consistently attended. Pt was often an engaged participant with listening attentively to others and at times contributing thoughts to discussion. Pt followed through with majority of homework assignments given in individual counseling, but struggled with consistent follow through of using healthy coping skills. Issues Still to be Addressed:: Pt could benefit from continued reinforcment of healthy coping skills, focusing on reduction of anxious symptoms, working through past childhood trauma, and creating a new routine and schedule. Discharge Recommendations/Instructions:: 1. Counseling at [facility] on 03/20/20. 2. Pt recently had an appointment with her outpatient psychatrist so will schedule for a new appointment in a couple of weeks. 3. Pt will be starting [facility]'s Aftercare program on 03/28/20 Discharge Handout: Complete Discharge Handout with client on aftercare options and continuity of care.
--- NOTE | 2020-03-20 15:48 | BH.MDN_ITS ---
Multi-Disciplinary Note - Note 30-min Individual Time Started:: 11:23 Date: 03/20/20 Purpose of session/treatment goals addressed:: Purpose of session was to assess pt's current symptoms and stressors. Pt's last day in IOP session focused on identifying treatment progress, strategies to maintain success, and aftercare plans. Eye Contact:: Good Motor Activity:: Appropriate Appearance:: Casual Speech:: Appropriate Mood:: Anxious Affect:: Constricted Thoughts:: Linear, Logical, No evidence of hallucinations/delusions noted Staff Interventions:: Therapist used open ended questions to elicit pt's current symptoms and stressors. Therapist elicited pt's thoughts about treatment progress since starting IOP. Therapist collaborated with pt to identify strategies to help her maintain success and progress post IOP. Reviewed aftercare details with outpatient providers and support. Provided support by using active listening and validating emotions. Client Response:: Pt identified treatment progress as: engaging in more activiti es instead of doing nothing like before, decrease in negative thoughts, using skills more consistently, and decreased in suicidal thoughts since admission. Pt has gained increased self-awareness of distorted thought patterns and warning signs. Pt identified strategies and skills to help her maintain progress to include: opposite action, challenging negative thoughts, getting outside, art, exercise bike, walking dog, setting small daily goals, communicating openly with supports, and referring to IOP binder. Risks/Concerns:: denies suicidal thoughts, plan or intention to date. Progress Toward Goals/Plan:: Progress noted with pt reporting overall improvement with mood, increased self-awareness, improved daily functioning, and decreased suicidality. Pt continues to struggle with poor motivation and lack of follow through which negatively impacted some areas of progress. Pt is more stable with improved daily functioning compared to when first started IOP. Pt will continue indiviudal counseling with her outpatient therapist through [facility] and continue seeing her outpatient psychiatrist for medication management. Pt has agreed to join the [facility] Aftercare group that starts next week. Time Stopped:: 11:50
== END 2020-03-20 14:00 | disposition home or self-care (01) ==
LOC: BHIOP 09:00
PROVIDERS: PCP Family Medicine; Referring Provider Psychiatry & Neurology Psychiatry; Visit Provider Psychiatry & Neurology Psychiatry
DX: F31.4 Bipolar disorder, current episode depressed, severe, without psychotic features (principal); F43.10 Post-traumatic stress disorder, unspecified; F41.1 Generalized anxiety disorder; F90.9 Attention-deficit hyperactivity disorder, unspecified type; R63.0 Anorexia
CPT/HCPCS: H0035; 90832; 90853

== ENCOUNTER 2020-03-28 14:00 | Outpatient (RCR) | payer MEDICARE, MEDICAID, SELFPAY ==
--- NOTE | 2020-03-28 14:00 | BH.SGPN.GN ---
This psychotherapy group was provided via telehealth using two-way, real-time interactive telecommunication technology between the patients and the provider. The interactive telecommunication technology included audio and video. The patient was offered telemedicine as an option for care delivery during the COVID-19 pandemic and consented to this option. Patient location: [place] Provider located at [facility] Behaviors/Verbalizations/Mental Status: []Client alert and oriented, casual dress, hygiene tended to. Eye contact fair. Motor activity appropriate. Speech within normal limits. Affect constricted, mood dysthymic. Thoughts linear, logical, no signs of hallucinations or delusions. Client Response/Progress/Benefit: []Pt reported since discharging from [facility] last week she has struggled with having a mix of days in which she feels depressed and other days in which she feels more stable. Pt stated it is frustrating to not have consistent moods. Pt reported she has also struggled with consistently applying the skills she learned and was using prior to discharge. pt reported she hasn't been taking walks or exercising. Pt reported she has been using opposite action to make herself do art, which she noted does help. Pt engaged in brainstorming of various daily routine ideas. Pt completed task of creating a daily morning routine. Pt stated her morning routine will be: wake up by 11am, eat breakfast, shower, change clothes, take medications, brush teeth, and daily mantra. Pt agreeable to work on homework of finishing her routine to include afternoon and evening. Pt seemed to benefit from support from peers and learning about benefits of routine. Pt's first day in aftercare group. Pt to continue aftercare group to improve consistent use of healthy coping, improve mood stability and prevent decompensation. Narrative Note: []
--- NOTE | 2020-03-28 15:32 | BH.MTP ---
Master Treatment Plan - Patient Information Program Physician:: Dr. Fatou Cano Primary Therapist:: ADRIENNE Lo - Psychiatric Diagnoses Psychiatric Diagnoses:: F 31.4 Bipolar 1 disorder, most recent episode depressed, severe without psychosis (resolving); PTSD; DIONE; ADD; ADHD; history of anorexia with purging by emesis Diagnosis Code(s):: F31.4 - Estimated LOS Estimated LOS (in weeks):: 12 Problem/Goal #1 - Problem/Goal #1 Stated Goal:: Pt will maintain or see a reduction in symptoms AEB pt?s score on the DSM 5 cross-cutting measure and improve pt?s daily functioning. - Objectives Objective #1 Stated Objective: Pt will continue to consistently apply health coping skills and strategies to maintain progress made through the IOP treatment program. Interventions: Through group therapy, pt will review warning signs/ triggers, as well as healthy coping skills used in the IOP treatment program to successfully maintain gains while transitioning into outpatient therapy. Discharge Criteria: Pt will have met this goal when pt?s score on the DSM 5 cross cutting measure has successfully remained stable or decreased over a period of 12 weeks and per pt?s report. Target Date: 06/20/20 Review Date: 05/09/20 Objective #2 Stated Objective: Pt will learn and successfully implement two to three maintenance strategies to prevent decompensation through the Aftercare group. Interventions: Through groups therapy, pt will be provided with education on healthy maintains behaviors and relapse prevention techniques to prevent decompensation. Discharge Criteria: Pt will have met this goal when can report consistently using at least 2 maintenance skills to prevent decompensation. Target Date: 06/20/20 Review Date: 05/09/20
--- NOTE | 2020-03-28 16:40 | BH.COMM ---
Communication Note - Communication with Client Communication Note: Pt completed admission paperwork to aftercare program via telehealth on 03/28/20. During the timeframe of the COVID-19 pandemic, verabl consent was obtained on 03/28/20 at 1350 via Zoom from Aure Arellano for aftercare program. Pt was emailed consent to treat, telehealth consent, and basic client rights which she reviewed and verbally consented to. Pt started program on 03/28/20.
--- NOTE | 2020-04-05 14:06 | BH.SGPN.GN ---
This psychotherapy group was provided via telehealth using two-way, real-time interactive telecommunication technology between the patients and the provider. The interactive telecommunication technology included audio and video. The patient was offered telemedicine as an option for care delivery during the COVID-19 pandemic and consented to this option. Patient location: [place] Provider located at [facility] Behaviors/Verbalizations/Mental Status: [] Client alert and oriented, casual dress, hygiene tended to. Eye contact good. Motor activity appropriate. Speech within normal limits. Affect congruent, mood dysthymic and anxious. Thoughts linear, logical, no signs of hallucinations or delusions. Client Response/Progress/Benefit: [] Pt receptive of session, engaged throughout. Notes feeling ?bruno down? today as she has been experiencing more negative thoughts lately. Expressed attempting to thought challenge when these thoughts occur, though struggles to consistently. Pt shared she did not accomplish her routine goal from last week as she struggled to wake up by 11am as planned. Struggled to identify skills to increase follow-through this week though was receptive of supportive feedback. Receptive of discussion on personal accountability and it?s importance in maintaining mental health stability. Pt worked cooperatively with group to identify benefits of maintaining personal accountability. Engaged in discussion on different accountability styles and brainstorming strategies for improving ability to hold themselves accountable. Pt identified that for homework she would like to create a daily ?to-do list? on the white board in her room as a visual reminder to hold herself accountable for working on current goals. Pt seemed to benefit from support from peers and increasing understanding of personal accountability benefits and strategies. Progress limited due to self-report of not having motivation to attempt to complete last week?s daily routine homework. Lack of motivation may continue to impact progress and risk regression. Pt to continue aftercare group to improve consistent use of healthy coping, maintain stability, and prevent decompensation. Narrative Note: []
--- NOTE | 2020-04-11 14:05 | BH.SGPN.GN ---
Behaviors/Verbalizations/Mental Status: []Client alert and oriented, casual dress, hygiene tended to. Eye contact good. Motor activity appropriate. Speech within normal limits. Affect congruent, mood anxious. Thoughts linear, logical, no signs of hallucinations or delusions. Client Response/Progress/Benefit: []Client responded well to session, attentive and engaged throughout. Client reported she has been very active since last week. Client shared she has been doing a lot of art projects including painting which client has not done in a while. Client also looked up some classes she can take to gain new art techniques. Client reported the coping skills she used this week to help her accomplish goals were; meditation, deep breathing, and the calm fadi on her phone. Client stated her stressor today is that she has been experiencing more anxiety at night than her baseline. After processing with the group, client recognized that the heat could be contributing to her higher anxiety at night. Client participated in the discussion of making healthy choices and the barriers keeping clients from making healthy choices. Client identified her personal barriers to be apathy, time, and lack of patience. Client reported she would like to make healthier decisions with exercising more and eating well. Client shared eating well and exercising more is good for client's mental health and energy. Client selected the strategy of gathering all the information needed to eating healthier for her game plan this week. Appeared to benefit from reflecting on application of coping skills, identifying barriers, and creating a game plan to improve healthy decision making skills. Narrative Note: []
== END 2020-04-14 23:59 ==
LOC: BHOG 14:00
PROVIDERS: PCP Family Medicine; Referring Provider Psychiatry & Neurology Psychiatry; Visit Provider Psychiatry & Neurology Psychiatry
DX: F31.4 Bipolar disorder, current episode depressed, severe, without psychotic features (principal); F43.10 Post-traumatic stress disorder, unspecified; F41.1 Generalized anxiety disorder; F90.9 Attention-deficit hyperactivity disorder, unspecified type
CPT/HCPCS: 90853

== ENCOUNTER 2020-04-18 14:00 | Outpatient (RCR) | payer MEDICARE, MEDICAID, SELFPAY ==
--- NOTE | 2020-04-19 14:26 | BH.MTP ---
Master Treatment Plan - Patient Information Program Physician:: Dr. Fatou Cano Primary Therapist:: ADRIENNE Lo - Psychiatric Diagnoses Psychiatric Diagnoses:: F 31.4 Bipolar 1 disorder, most recent episode depressed, severe without psychosis (resolving); PTSD; DIONE; ADD; ADHD; history of anorexia with purging by emesis Diagnosis Code(s):: F 31.4 - Estimated LOS Estimated LOS (in weeks):: 12 Problem/Goal #1 - Problem/Goal #1 Stated Goal:: Pt will maintain or see a reduction in symptoms AEB pt?s score on the DSM 5 cross-cutting measure and improve pt?s daily functioning. - Objectives Objective #1 Stated Objective: Pt will continue to consistently apply health coping skills and strategies to maintain progress made through the IOP treatment program. Interventions: Through group therapy, pt will review warning signs/ triggers, as well as healthy coping skills used in the IOP treatment program to successfully maintain gains while transitioning into outpatient therapy. Discharge Criteria: Pt will have met this goal when pt?s score on the DSM 5 cross cutting measure has successfully remained stable or decreased over a period of 12 weeks and per pt?s report. Target Date: 06/20/20 Review Date: 05/09/20 Objective #2 Stated Objective: Pt will learn and successfully implement two to three maintenance strategies to prevent decompensation through the Aftercare group. Interventions: Through groups therapy, pt will be provided with education on healthy maintains behaviors and relapse prevention techniques to prevent decompensation. Discharge Criteria: Pt will have met this goal when can report consistently using at least 2 maintenance skills to prevent decompensation. Target Date: 06/20/20 Review Date: 05/09/20
--- NOTE | 2020-04-25 14:07 | BH.SGPN.GN ---
Behaviors/Verbalizations/Mental Status: [] Client alert and oriented, casual dress, hygiene tended to. Eye contact fair - pt on telehealth and at times appeared distracted by her cat in the room. Motor activity appropriate. Speech within normal limits. Affect congruent, mood anxious and dysthymic. Thoughts linear, logical, no signs of hallucinations or delusions. Client Response/Progress/Benefit: []Pt receptive of session, engaged throughout. Notes feeling anxious today as her psychiatric medication was recently changed and she is worried about potential side effects. 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 Noted this was anxiety provoking but she is proud of her ability to do so. Receptive of discussion on self-talk and its influence in maintaining long-term mental health stability. Pt worked cooperatively with group to identify benefits of positive affirmations in improving self-talk and overall ability to better manage potential mental health setbacks. Engaged in discussion on barriers impacting our ability to use or believe affirmation statements, indicating her largest barrier is recognizing when to use them and challenging herself not to be negative instead. Connected with the strategies for improving effective creation and application of believable personal affirmations. Pt identified own personal affirmation statements she would like to begin using. Identified that she would like to improve comfort in regularly using positive self-talk statements. Progress noted in self-report of challenging herself to step outside her comfort zone and practice live streaming her art. Pt to continue aftercare group to improve consistent use of healthy coping, maintain stability, and prevent decompensation. Narrative Note: []
--- NOTE | 2020-05-02 13:03 | BH.DS ---
Discharge Summary - Demographics Date of Admission:: 03/28/20 Discharge Date: 05/02/20 Presenting Problems at Admission:: Client discharged from [facility] tx and transitioned to [facility] aftercare to maintain gains he made in IOP and to reinforce healthy coping skills. At admission to aftercare, client reported experiencing slight symptoms of anxiety and depression. Client was also experiencing life stressors including being isolated due to COVID-19 pandemic and anxiety about her immunocompromised family getting COVID-19. Pt struggling to consistently apply healthy coping skills outside treatment environment. Discharge Diagnoses:: F 31.4 Bipolar 1 disorder, most recent episode depressed, severe without psychosis (resolving); PTSD; DIONE; ADD; ADHD; history of anorexia with purging by emesis Reason for Discharge:: Pt elected to no longer attend aftercare group due to having difficulty engaging via telehealth with the group. - Treatment Progress During Treatment & Response: Progress hindered by pt's continued difficulty with consistent application of skills. Pt only attended 3 aftercare sessions so progress was limited. Pt provided some input during discussions. Issues Still to be Addressed:: Pt could benefit from continued reinforcement of healthy coping skills and challenging distorted thoughts. Pt struggling with being isolated because of COVID-19 could benefit from continued exploration of ways to stay connected virtually. Discharge Recommendations/Instructions:: Pt recommended to continue individual counseling with established provider at [facility] and already established psychiatrist. Discharge Handout: Complete Discharge Handout with client on aftercare options and continuity of care.
== END 2020-05-02 15:37 | disposition home or self-care (01) ==
LOC: BHOG 14:00
PROVIDERS: PCP Family Medicine; Referring Provider Psychiatry & Neurology Psychiatry; Visit Provider Psychiatry & Neurology Psychiatry
DX: F31.4 Bipolar disorder, current episode depressed, severe, without psychotic features (principal); F43.10 Post-traumatic stress disorder, unspecified; F41.1 Generalized anxiety disorder; F90.9 Attention-deficit hyperactivity disorder, unspecified type
CPT/HCPCS: 90853

== ENCOUNTER 2024-05-04 15:25 | Emergency (ER) | payer MEDICARE, SELFPAY ==
[2024-05-04 15:26] VITALS: BP 138/92; PULSE 100; RESP 18; TEMP 36.8; O2SAT 100; BMI 25.7
[2024-05-04] MEDS: 0.9% Normal Saline (1000mL) 1,000 ML 999 ML IV (16:03)
[2024-05-04] MEDS: Metoclopramide 10 MG/2 ML Vial 5 MG IV (16:04)
--- NOTE | 2024-05-04 16:05 | RAD_ITS ---
STUDY: X-RAY - ABDOMEN/PELVIS REASON FOR EXAM: Female, 34 years old. Vomiting TECHNIQUE: Frontal views COMPARISON: None. FINDINGS: Normal visualized lung bases. There is an unremarkable bowel gas pattern. Moderate colonic fecal retention. There is no demonstrated free abdominal air. The visualized liver, spleen and kidneys are grossly normal in size and morphology. Normal soft tissue structures. Normal visualized osseous structures. RAD/Abdomen Single View IMPRESSION: Moderate colonic fecal retention. Electronically Signed: José Guzman DO at 16:42 EDT ,
[2024-05-04 16:19] LABS: Absolute Lymphocyte Count 2.53 X10^3/uL (0.83-4.51); Absolute Neutrophil Count 6.7 X10^3/uL (2.0-7.7); Basophil# 0.04 X10^3/uL; Basophil% 0.4 % (0-1); Eosinophil# 0.29 X10^3/uL; Eosinophils% 2.8 % (0-5); Hematocrit 37.2 % (37-47); Hemoglobin 12.2 g/dL (12.0-15.0); Lymphocyte # 2.53 X10^3/ul (0.83-4.51); Lymphocyte % 24.2 % (19-41); Mean Corp Hgb Conc 32.8 g/dL (32-36); Mean Corpuscular Volume 79.3 fL (81-99); Mean Platelet Vol. 11.9 fl (6.2-12.0); Monocyte# 0.87 X10^3/uL; Monocyte% 8.3 % (0-10); NRBC Flagged by Analyzer 0 % (0-5); Neutrophil # 6.68 X10^3/uL (2.7-7.7); Neutrophil % 63.9 % (47-70); Platelet Count 341 K/mm3 (150-450); RBC Distribution Width CV 17.5 % (11.6-14.6); RBC Distribution Width SD 50.2 fl (35.1-43.9); Red Blood Count 4.69 M/mm3 (4.2-5.4); White Blood Count 10.5 K/mm3 (4.4-11.0)
[2024-05-04 17:00] LABS: Internal QC Validated? YES +Cl - CLEAR BKGD; Pregnancy, Serum, hCG Quali. NEGATIVE Negative
[2024-05-04 17:03] LABS: AST(SGOT) 15 U/L (15-37); Alanine Aminotransfer ALT/SGPT 22 U/L (13-56); Albumin, Serum 3.8 g/dL (3.2-5.0); Alkaline Phosphatase 132 U/L (45-117); Anion Gap 12 (5-15); BUN 7 mg/dL (7-18); BUN/Creat Ratio 6.9 RATIO (10-20); Chloride 107 mmol/L (98-107); Creatinine, Serum 1.02 mg/dL (0.55-1.02); EST Glomerular Filtration Rate 65 mL/min (>60); Est Glom Filt Rate - Afr Amer 79 mL/min (>60); Estimated Creatinine Clearance 80.31 ml/min; Globulin 3.7 g/dL (2.2-4.2); Glucose 88 mg/dL (74-106); Potassium 2.6 mmol/L (3.5-5.1); Protein, Total 7.5 g/dL (6.4-8.2); Sodium Level 134 mmol/L (136-145)
--- NOTE | 2024-05-04 17:11 | EX.ED.DYSGE1 ---
HPI History of Present Illness Chief Complaint: Nausea/Vomiting Informant: patient Narrative Narrative: Patient has been nauseated for a straight week with occasional emesis, it happens daily, does not seem to be necessarily triggered by food, denies having any abdominal pain but she has been constipated for 1-2 weeks her last bowel movement was a week ago when she did the magnesium citrate but nothing since. No recent medication changes. She states she is on a lot of psychiatric medications. She is feeling tired. No history of any abdominal surgeries. [facility] Medical History Epilepsy Migraine GERD (gastroesophageal reflux disease) History of anorexia nervosa ADD (attention deficit disorder) Generalized anxiety disorder Post traumatic stress disorder (PTSD) Bipolar 1 disorder, depressed, severe Home Medications ?Medication ?Instructions ?Recorded ?Last Taken ?Type aspirin 81 mg tablet,delayed 81 mg PO DAILY 01/31/20 Unknown History release clonazepam 1 mg tablet 2 mg PO DAILY PRN PRN Anxiety 01/31/20 Unknown History gabapentin 100 mg capsule 100 mg PO TID PRN PRN Anxiety 01/31/20 Unknown History metoprolol succinate 50 mg 50 mg PO DAILY 01/31/20 Unknown History tablet,extended release 24 hr dextroamphetamine-amphetamine ER cap PO 04/03/24 Unknown History 25 mg 24hr capsule,extend release famotidine 20 mg tablet 20 mg PO BID 04/03/24 Unknown History hydrocortisone 1 % topical 1 applic topical BID PRN itching 04/03/24 Unknown Rx ointment (Anti-Itch #28.35 grams (hydrocortisone)) lamotrigine 150 mg tablet 150 mg PO BID 04/03/24 Unknown History (Lamictal) metformin 500 mg tablet 500 mg PO BID 04/03/24 Unknown History pantoprazole 40 mg tablet,delayed 40 mg PO DAILY 04/03/24 Unknown History release quetiapine 50 mg tablet (Seroquel) 50 mg PO QHS 04/03/24 Unknown History topiramate 100 mg tablet (Topamax) 100 mg PO DAILY 04/03/24 Unknown History lithium carbonate 600 mg capsule 600 mg PO DAILY 04/26/24 Unknown History ondansetron 8 mg disintegrating 8 mg PO Q8H PRN nausea and 05/04/24 Unknown Rx tablet vomiting #12 tabs potassium chloride 20 mEq 20 meq PO BID #10 tabs 05/04/24 Unknown Rx tablet,extended release Allergy/AdvReac Type Severity Reaction Status Date / Time hydromorphone AdvReac Unknown PT UNSURE Verified 05/04/24 15:28 OF REACTION ketamine AdvReac Vomiting Verified 05/04/24 15:28 Family History Mother Diabetes Autoimmune disorder lupus Bleeding disorder MTHFR gene Cancer squamous cell skin cancer CVA (cerebral vascular accident) Anxiety Depression Grandmother Breast cancer Diabetes Brother Bowel disease crohn's Rheumatoid arthritis Brother Psoriasis Brother Alcoholism Anxiety Depression Surgical History History of mandibular surgery H/O sinus surgery Social History household members: family current occupational status: disabled 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 Smoking Status: Never smoker Electronic Cigarette Use: not used alcohol intake: never substance use type: does not use do you feel safe at home: Yes ROS ROS ED Constitutional Constitutional ED: Reports malaise; Denies chills or fever(s) Eyes Eyes: Denies change in vision or diplopia ENT ENT ED: Denies rhinorrhea or sore throat Cardiovascular Cardiovascular: Denies chest pain or palpitations Respiratory/Chest Respiratory/Chest: Denies cough or dyspnea Gastrointestinal Gastrointestinal: Reports constipation, nausea and vomiting; Denies abdominal pain, diarrhea or hematemesis Genitourinary Genitourinary ED: Denies dysuria or hematuria Musculoskeletal Musculoskeletal: Denies back pain or neck pain Integumentary Denies abscess or rash Neurologic Neurologic: Denies headache(s), paresthesias or weakness Psychiatric Psychiatric: Denies suicidal thoughts EXAM Physical Exam Const Vital Signs: 05/04/24 15:26 05/04/24 17:58 05/04/24 19:00 Temperature 98.2 F Temperature Source Temporal Pulse Rate 100 89 81 Respiratory Rate 18 18 16 Blood Pressure 138/92 H 134/86 H 109/73 Blood Pressure Mean 107 102 85 Pulse Ox 100 98 100 Oxygen Delivery Method Room Air Room Air Room Air 05/04/24 19:46 Temperature 98.2 F Temperature Source Pulse Rate 82 Respiratory Rate 16 Blood Pressure 107/71 Blood Pressure Mean 83 Pulse Ox 100 Oxygen Delivery Method Positive well nourished and well developed General Appearance ED: well developed and NAD HEENT Reports moist mucous membranes normocephalic and atraumatic Eyes PERRL and EOMs intact bilaterally Neck full ROM and supple Resp normal respiratory effort and clear to auscultation bilaterally Cardio regular rate, regular rhythm and no murmurs Rate: Negative for tachycardic GI non-tender and non-distended GI Narrative: Declined rectal Auscultation: normoactive bowel sounds Palpation: soft Back/Spine no CVA tenderness General Back: other FROM Extremity normal to inspection General Extremety ED: Negative for edema, pulses abnormal or tenderness General Extremity: Negative for edema or pulses abnormal Neuro oriented x3, CN's II-XII intact bilaterally and no sensory deficits noted Sensorium / Orientation: awake and alert Motor Exam: strength 5/5 throughout Skin no rashes or lesions noted and no wounds MDM MDM MDM Narrative Medical decision making narrative: KUB 1 view on my interpretation appears to be consistent with obstipation/constipation, nonspecific gas pattern, radiology in agreement. Discussed with patient she is amenable to trying a soapsuds enema to see if that helps her feel better and help her constipation. Meanwhile her labs show a significant hypokalemia which we will start replacing. The rest of her tests are noted and unremarkable, including normal lithium level. Patient did produce some small pieces of hard stool with soapsuds enema but not a lot. She does not want anymore and is amenable to being discharged home. I am going to prescribe her 5 more days of potassium replacement. I recommend outpatient follow-up. She is not so weak or confused that she needs to be admitted to the hospital and I do not think she is bulimic. We discussed MiraLAX and using it as more of a flush at home. Lab Data Attestation: I reviewed the patient's lab results. Labs: Laboratory Results - last 24 hr 05/04/24 05/04/24 16:06 19:37 WBC 10.5 RBC 4.69 Hgb 12.2 Hct 37.2 MCV 79.3 L MCH 26.0 L MCHC 32.8 RDW Std Deviation 50.2 H RDW Coeff of Joe 17.5 H Plt Count 341 MPV 11.9 Immature Gran % (Auto) 0.400 Neut % (Auto) 63.9 Lymph % (Auto) 24.2 [place] % (Auto) 8.3 Eos % (Auto) 2.8 Baso % (Auto) 0.4 Absolute Neuts (auto) 6.7 Absolute Lymphs (auto) 2.53 Nucleated RBC % 0 Sodium 134 L Potassium 2.6 L* Chloride 107 Carbon Dioxide 15.0 L Anion Gap 12 BUN 7 Creatinine 1.02 Estim Creat Clear Calc 80.31 Est GFR (MDRD) Af Amer 79 Est GFR (MDRD) Non-Af 65 BUN/Creatinine Ratio 6.9 L Glucose 88 Calcium 10.0 Total Bilirubin 0.60 AST 15 ALT 22 Alkaline Phosphatase 132 H Total Protein 7.5 Albumin 3.8 Globulin 3.7 Albumin/Globulin Ratio 1.0 Serum , Qual NEGATIVE [place] 1.10 Radiography Diagnostic Testing: Clinical Impression(s) from Imaging Studies KUB X-Ray 05/04/24 16:05 IMPRESSION: Moderate colonic fecal retention. Electronically Signed: José Guzman DO at 16:42 EDT Reading Location ID and State: [facility] [place] Tel [phone], Service support , Discharge Plan Triage Chief Complaint: Nausea/Vomiting Other Complaint: Neuro S/Sx ED Provider: Lennox Zavala Dx/Rx/DC Orders Clinical Impression: Constipation, Acute hypokalemia, Vomiting Instructions: ED Constipation (Adult), ED Hypokalemia Prescriptions: New potassium chloride 20 mEq tablet extended release 20 meq PO BID Qty: 10 0RF ondansetron 8 mg tablet,disintegrating 8 mg PO Q8H PRN (Reason: nausea and vomiting) Qty: 12 0RF No Action dextroamphetamine-amphetamine 25 mg capsule,extended release 24hr PO metformin 500 mg tablet 500 mg PO BID famotidine 20 mg tablet 20 mg PO BID pantoprazole 40 mg tablet,delayed release (DR/EC) 40 mg PO DAILY topiramate [Topamax] 100 mg tablet 100 mg PO DAILY lamotrigine [Lamictal] 150 mg tablet 150 mg PO BID quetiapine [Seroquel] 50 mg tablet 50 mg PO QHS hydrocortisone [Anti-Itch (HC)] 1 % ointment 1 applic topical BID PRN (Reason: itching) Qty: 28.35 0RF metoprolol succinate 50 MG tablet extended release 24 hr 50 mg PO DAILY clonazepam 1 MG tablet 2 mg PO DAILY PRN PRN (Reason: Anxiety) aspirin 81 MG tablet 81 mg PO DAILY gabapentin 100 MG capsule 100 mg PO TID PRN PRN (Reason: Anxiety) lithium carbonate 600 mg capsule 600 mg PO DAILY Patient Comments: 300mg in morning. Primary Care Provider: Chanelle Lea Referrals: Chanelle Lea MD [Primary Care Provider] - 3-5 Days if not improving Activity Restrictions/Additional Instructions: Consider using MiraLAX and use about a cup's worth, followed by plenty of fluids. Print Language: Citizen [place] Disposition Disposition: Home, Self Care Discharge Date/Time: 05/04/24 19:46
[2024-05-04] MEDS: Potassium Chloride 10mEq/100mL 10 MEQ/100 ML IV.SOLN. 100 MEQ IV BOLUS (17:23)
[2024-05-04] MEDS: Potassium Chloride Oral Tablet 20 MEQ 40 MEQ PO (17:24)
[2024-05-04 17:58] VITALS: BP 134/86; PULSE 89; RESP 18; O2SAT 98
[2024-05-04 19:00] VITALS: BP 109/73; PULSE 81; RESP 16; O2SAT 100
[2024-05-04 19:46] VITALS: BP 107/71; PULSE 82; RESP 16; TEMP 36.8; O2SAT 100; BMI 25.7
== END 2024-05-04 19:46 | disposition home or self-care (01) ==
PROVIDERS: Emergency Provider Emergency Medicine; PCP Internal Medicine; Visit Provider Emergency Medicine
DX: K59.00 Constipation, unspecified (principal); F31.9 Bipolar disorder, unspecified; G40.909 Epilepsy, unspecified, not intractable, without status epilepticus; R11.2 Nausea with vomiting, unspecified; E87.6 Hypokalemia; F41.1 Generalized anxiety disorder; Z79.82 Long term (current) use of aspirin; Z79.84 Long term (current) use of oral hypoglycemic drugs; Z79.899 Other long term (current) drug therapy
CPT/HCPCS: 74018; 80053; 80178; 84703; 85025; 96361; 96365; 96375; 99285; J7030; A4216

== ENCOUNTER → 2024-05-25 | Outpatient (CLI) | payer MEDICARE, SELFPAY ==
[2024-05-25 12:25] LABS: T3 Total - Triiodothyronine 3.65 ng/mL (0.6-1.81)
[2024-05-25 12:33] LABS: T4 Free Direct 4.33 ng/dL (0.76-1.46); Thyroid Stim Hormone (TSH) < 0.01 uIU/mL (0.358-3.74)
[2024-05-26 14:10] LABS: Thyroglobulin Antibody < 1.0 IU/mL (0.0-0.9); Thyroid Peroxidase AB < 9 IU/mL (0-34)
== END | disposition home or self-care (01) ==
PROVIDERS: PCP Internal Medicine; Referring Provider Internal Medicine; Visit Provider Internal Medicine
DX: E05.90 Thyrotoxicosis, unspecified without thyrotoxic crisis or storm (principal)
CPT/HCPCS: 36415; 84439; 84443; 84445; 84480; 86376; 86800

== ENCOUNTER → 2024-06-02 | Outpatient (CLI) | payer MEDICARE, SELFPAY ==
--- NOTE | 2024-06-02 13:33 | US_ITS ---
STUDY: THYROID ULTRASOUND REASON FOR EXAM: Female, 34 years old. Hyperthyroid TECHNIQUE: Ultrasound evaluation of the thyroid was performed with real-time and static de la paz-scale imaging. COMPARISON: None. FINDINGS: RIGHT LOBE: The right lobe of the thyroid gland measures 4.9 cm x 2.1 cm x 2.4 cm. There is a heterogeneous echotexture. There are no demonstrated solid, cystic or complex lesions. LEFT LOBE: The left lobe of the thyroid gland measures 4.4 cm x 2.3 cm x 2.3 cm. There is a heterogeneous echotexture. There are no demonstrated solid, cystic or complex lesions. ISTHMUS: The isthmus is enlarged and measures 9 mm. The regional lymph nodes are normal. US/Thyroid IMPRESSION: Bulky heterogeneous echotexture of both lobes of the thyroid and the isthmus. No focal lesion is seen. Electronically Signed: Len Vallejo MD at 14:38 EDT ,
== END | disposition home or self-care (01) ==
LOC: US 13:31
PROVIDERS: PCP Internal Medicine; Referring Provider Internal Medicine; Visit Provider Internal Medicine
DX: E05.90 Thyrotoxicosis, unspecified without thyrotoxic crisis or storm (principal)
CPT/HCPCS: 76536

== ENCOUNTER → 2024-06-21 | Outpatient (CLI) | payer MEDICARE, SELFPAY ==
[2024-06-27 19:08] LABS: HPV APTIMA, High Risk Negative (Negative)
== END | disposition home or self-care (01) ==
PROVIDERS: PCP Internal Medicine; Referring Provider Nurse Practitioner Family; Visit Provider Nurse Practitioner Family
DX: Z12.4 Encounter for screening for malignant neoplasm of cervix (principal)
CPT/HCPCS: 87624; 88175; G0145

== ENCOUNTER 2024-06-27 13:21 | Observation (INO) | payer MEDICARE, MEDICAID, SELFPAY ==
[2024-06-27] VITALS (7 sets, daily range): BP systolic 103–136; BP diastolic 57–87; PULSE 57–94; RESP 12–18; TEMP 36.1–36.9; O2SAT 96–100; BMI 21.8; BMI 21.4
[2024-06-27 14:01] LABS: Bedside Glucose 99 mg/dL (74-106)
--- NOTE | 2024-06-27 14:11 | EX.ED.DYSGE1 ---
HPI History of Present Illness Chief Complaint: Neuro S/Sx Informant: patient Onset/Context/Timing Onset: Today Context: Sudden Onset Timing: Continuous Quality: Diplopia with images on top of each other Location: Right eye Worsened by: Looking to her right Relieved by: Looking to her left Narrative Narrative: Patient presents with diplopia from her right eye that began approximately 3 hours prior to arrival. Patient states it began rather suddenly. Patient states she was watching TikTok videos when this began. Patient states that has been constant for the past 3 hours. Patient states she had a similar episode 1 week ago that resolved. Patient states her images are 1 on top of the other. Patient states it is worse when she looks to her right. Patient states it is better when she looks to her left. The patient states she has been having some sensation of feeling off balance and unsteady when she walks. Patient denies any spinning sensation. Patient states she did have an episode of nausea and vomiting. Patient states that she has had some blurred vision to her left eye. Patient denies any chest pain or shortness of breath. [facility] Medical History Atrial fibrillation Epilepsy Migraine GERD (gastroesophageal reflux disease) History of anorexia nervosa ADD (attention deficit disorder) Generalized anxiety disorder Post traumatic stress disorder (PTSD) Bipolar 1 disorder, depressed, severe Home Medications ?Medication ?Instructions ?Recorded ?Last Taken ?Type aspirin 81 mg tablet,delayed 81 mg PO DAILY 01/31/20 06/27/24 History release clonazepam 1 mg tablet 1 mg PO DAILY PRN Anxiety 01/31/20 06/27/24 History metoprolol succinate 50 mg 50 mg PO DAILY 01/31/20 06/27/24 History tablet,extended release 24 hr famotidine 20 mg tablet 20 mg PO BID 04/03/24 06/27/24 History pantoprazole 40 mg tablet,delayed 40 mg PO DAILY 04/03/24 06/27/24 History release topiramate 100 mg tablet (Topamax) 100 mg PO DAILY 04/03/24 06/27/24 History lithium carbonate 600 mg capsule 600 mg PO QPM 04/26/24 06/26/24 History dextroamphetamine-amphetamine ER 30 mg PO DAILY 05/25/24 06/27/24 History 30 mg 24hr capsule,extend release metformin 500 mg tablet 500 mg PO BID 05/25/24 06/27/24 History fluoxetine 10 mg capsule 10 mg PO DAILY 06/27/24 06/27/24 History lamotrigine 100 mg tablet 100 mg PO BID 06/27/24 06/27/24 History Allergy/AdvReac Type Severity Reaction Status Date / Time hydromorphone AdvReac Unknown PT UNSURE Verified 06/27/24 13:21 OF REACTION ketamine AdvReac Vomiting Verified 06/27/24 13:21 Family History Mother Diabetes Autoimmune disorder lupus Bleeding disorder MTHFR gene Cancer squamous cell skin cancer CVA (cerebral vascular accident) Anxiety Depression Grandmother Breast cancer Diabetes Brother Bowel disease crohn's Rheumatoid arthritis Brother Psoriasis Brother Alcoholism Anxiety Depression Surgical History History of mandibular surgery H/O sinus surgery Social History household members: family current occupational status: disabled 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 Smoking Status: Never smoker Electronic Cigarette Use: not used alcohol intake: never substance use type: does not use caffeine: Yes what type of physical activity do you participate in: none seatbelt use: always do you feel safe at home: Yes additional social history: ROS ROS ED Constitutional Constitutional ED: Denies chills or fever(s) Eyes Eyes: Reports blurry vision and diplopia ENT ENT ED: Denies rhinorrhea or sore throat Cardiovascular Cardiovascular: Denies chest pain or palpitations Respiratory/Chest Respiratory/Chest: Denies cough or dyspnea Gastrointestinal Gastrointestinal: Reports nausea and vomiting Genitourinary Genitourinary ED: Denies dysuria or hematuria Musculoskeletal Musculoskeletal: Denies back pain or neck pain Integumentary Denies abscess or rash Neurologic Neurologic: Reports headache(s); Denies weakness Allergic/Immunologic Allergic/Immunologic ED: Denies mouth swelling or urticaria EXAM Physical Exam Const Vital Signs: 06/27/24 13:22 06/27/24 15:21 06/27/24 16:23 Temperature 96.9 F L Temperature Source Temporal Pulse Rate 94 75 Pulse Rate [Lying] 68 Pulse Rate [Sitting (for 1 minute prior to obtaining)] 66 Pulse Rate [Standing (for 1 minute prior to obtaining)] 84 Respiratory Rate 18 16 Blood Pressure 128/72 H 124/87 H Blood Pressure [Lying] 126/75 H Blood Pressure [Sitting (for 1 minute prior to obtaining)] 127/78 H Blood Pressure [Standing (for 1 minute prior to obtaining)] 103/57 L Blood Pressure Mean 90 99 Blood Pressure Mean [Lying] 92 Blood Pressure Mean [Sitting (for 1 minute prior to obtaining)] 94 Blood Pressure Mean [Standing (for 1 minute prior to obtaining)] 72 Pulse Ox 98 96 Oxygen Delivery Method Room Air Room Air 06/27/24 17:00 06/27/24 18:14 Temperature 98.5 F Temperature Source Pulse Rate 61 67 Pulse Rate [Lying] Pulse Rate [Sitting (for 1 minute prior to obtaining)] Pulse Rate [Standing (for 1 minute prior to obtaining)] Respiratory Rate 12 18 Blood Pressure 126/78 H 124/69 H Blood Pressure [Lying] Blood Pressure [Sitting (for 1 minute prior to obtaining)] Blood Pressure [Standing (for 1 minute prior to obtaining)] Blood Pressure Mean 94 87 Blood Pressure Mean [Lying] Blood Pressure Mean [Sitting (for 1 minute prior to obtaining)] Blood Pressure Mean [Standing (for 1 minute prior to obtaining)] Pulse Ox 100 99 Oxygen Delivery Method Room Air Positive well nourished and well developed General Appearance ED: well developed and NAD HEENT Reports moist mucous membranes Eyes PERRL and EOMs intact bilaterally Neck supple and no JVD Resp normal respiratory effort and clear to auscultation bilaterally Cardio regular rate and regular rhythm GI non-distended Palpation: soft and tender periumbilical (Mild); Negative for guarding or rebound tenderness present Neuro oriented x3, CN's II-XII intact bilaterally and no sensory deficits noted Sensorium / Orientation: alert Motor Exam: strength 5/5 throughout Psych mental status grossly normal Activity / Motor Behavior: appropriate eye contact Speech: soft Mood & Affect: flat affect MDM MDM MDM Narrative Medical decision making narrative: Differential diagnosis includes stroke, lithium toxicity, electrolyte abnormality, intracranial bleeding, intracranial mass, cardiac dysrhythmia, ocular migraine, urinary tract infection, hypoglycemia, and hyperglycemia. CT scan of the brain will be obtained to assess for stroke and intracranial bleeding. CTA of the head and neck will be obtained to assess for large vessel occlusion and stroke. EKG will be obtained to assess for cardiac dysrhythmia. ABG will be obtained to assess for leukocytosis and anemia. Basic metabolic profile will be obtained to assess for electrolyte abnormality and renal function. [place] level will be obtained to assess for lithium toxicity. Urinalysis will be obtained to assess for urinary tract infection. Lab Data Attestation: I reviewed the patient's lab results. Lab results narrative: CBC was reviewed and showed a slight leukocytosis of 12.7. There is a mild anemia with a hemoglobin of 11.5 and hematocrit 36.0. Basic metabolic profile was reviewed and was within normal limits. Serum hCG was reviewed and was negative. [place] level was reviewed and was normal at 0.6. Urinalysis was reviewed. There is no evidence of urinary tract infection or hematuria. Labs: Laboratory Results - last 24 hr 06/27/24 06/27/24 06/27/24 13:40 14:43 15:20 WBC 12.7 H RBC 4.06 L Hgb 11.5 L Hct 36.0 L MCV 88.7 MCH 28.3 MCHC 31.9 L RDW Std Deviation 51.4 H RDW Coeff of Joe 15.7 H Plt Count 283 MPV 11.5 Immature Gran % (Auto) 0.400 Neut % (Auto) 69.6 Lymph % (Auto) 19.4 [place] % (Auto) 8.2 Eos % (Auto) 2.0 Baso % (Auto) 0.4 Absolute Neuts (auto) 8.9 H Absolute Lymphs (auto) 2.47 Nucleated RBC % 0 Sodium 142 Potassium 3.5 Chloride 112 H Carbon Dioxide 23.0 Anion Gap 7 BUN 3 L Creatinine 0.80 Estim Creat Clear Calc 94.54 Est GFR (MDRD) Af Amer 104 Est GFR (MDRD) Non-Af 86 BUN/Creatinine Ratio 3.8 L Glucose 95 Calcium 9.5 Serum , Qual NEGATIVE Urine Color Yellow Urine Clarity Sl. Cloudy Urine pH 7.0 Ur Specific [place] 1.005 Urine Protein 15 H Urine Glucose (UA) Normal Urine Ketones 5 H Urine Occult Blood Negative Urine Nitrite Negative Urine Bilirubin Negative Urine Urobilinogen Normal Ur Leukocyte Esterase Negative Urine RBC 0 SEEN Urine WBC 0-5 SEEN Ur Squamous Epith Cells 5-10 SEEN Ur Transition Epith Cell 0-5 SEEN Urine Bacteria 3+ Urine Mucus 0 SEEN [place] 0.60 POC Glucose 99 Radiography Diagnostic Testing: Clinical Impression(s) from Imaging Studies Head/Neck CTA 06/27/24 14:33 IMPRESSION: Normal CTA Head and neck with contrast. Partial opacification of the right maxillary sinus. Electronically Signed: Len Vallejo MD at 15:30 EDT , CTA of the head and neck was obtained. There is no evidence of acute stroke or large vessel occlusion. There is partial opacification of the right maxillary sinus. This was interpreted by the radiologist and was also independently reviewed by myself. EKG Initial EKG: Attestation: I personally reviewed and interpreted this EKG as follows: Interpretation: Sinus Rhythm (70) and Non-Specific ST Changes Comments: EKG was obtained. On my independent interpretation, it showed a normal sinus rhythm with a rate of 70. ND interval, QRS interval, and QTc intervals were all normal. [place] was normal. There are nonspecific ST-T wave changes. Prior EKG tracings: not available for review Prior: No Prior Management Discussion w/another healthcare provider: Hospitalist Treatment and Re-Evaluation :: Patient was given IV fluids. Orthostatic vital signs were obtained and were positive. Patient's blood pressure dropped from 127/78 to 103/57 from sitting to standing. Patient's heart rate only went from 66-84 however. Patient was given a repeat bolus of normal saline. On reevaluation, patient states her diplopia was now going into her left eye. Visual acuity was 20/40 in the right eye, 20/30 in the left eye, and 20/25 in both eyes. Given the patient's persistent symptoms, will discuss with the hospitalist for possible admission. Case was discussed with the hospitalist. She will admit the patient to her service for MRI and further evaluation. Patient understood and was agreeable with the plan. All questions were answered. Discharge Plan Triage Chief Complaint: Neuro S/Sx ED Provider: Klever Sifuentes Dx/Rx/DC Orders Clinical Impression: Diplopia, Orthostatic hypotension, Leukocytosis Prescriptions: No Action famotidine 20 mg tablet 20 mg PO BID pantoprazole 40 mg tablet,delayed release (DR/EC) 40 mg PO DAILY topiramate [Topamax] 100 mg tablet 100 mg PO DAILY metformin 500 mg tablet 500 mg PO BID dextroamphetamine-amphetamine 30 mg capsule,extended release 24hr 30 mg PO DAILY metoprolol succinate 50 MG tablet extended release 24 hr 50 mg PO DAILY clonazepam 1 MG tablet 1 mg PO DAILY PRN (Reason: Anxiety) aspirin 81 MG tablet 81 mg PO DAILY lithium carbonate 600 mg capsule 600 mg PO QPM lamotrigine 100 mg tablet 100 mg PO BID fluoxetine 10 mg capsule 10 mg PO DAILY Primary Care Provider: Chanelle Lea Referrals: Chanelle Lea MD [Primary Care Provider] - Print Language: Maltese Disposition Disposition: Acute Care Hospital [facility]
--- NOTE | 2024-06-27 14:33 | CT_ITS ---
STUDY: CTA HEAD AND NECK WITH CONTRAST REASON FOR EXAM: Female, 34 years old. Diplopia RADIATION DOSAGE (If Supplied By Facility): CTDIvol = ( 27.72 ) mGy, DLP = ( 1470.19 ) mGycm TECHNIQUE: CT angiography was performed with a multi-detector CT scanner. Data acquisition was obtained from the skull base through the vertex following intravenous administration of IV 100mL [id number]-370. MIP images were reconstructed from the axial data set. Post-processing of the angiographic images was performed, with multiplanar reformation and 3D reconstruction. Individualized dose optimization techniques were used for this CT. COMPARISON: No relevant priors. FINDINGS: Normal bilateral petrous carotid arteries. Normal right cavernous carotid artery with a normal supraclinoid bifurcation. Normal left cavernous carotid artery with a normal supraclinoid bifurcation. Normal right A1 segments of the anterior cerebral artery. Normal left A1 segments of the anterior cerebral artery. Normal intact anterior communicating artery (ACOM). Normal bilateral A2 segments of the anterior cerebral arteries. Normal right M1 and M2 segments of the middle cerebral arteries, with a normal M1 bifurcation. Normal left M1 and M2 segments of the middle cerebral arteries, with a normal M1 bifurcation. Normal right posterior communicating artery (PCOM). Normal left posterior communicating artery (PCOM). Normal bilateral vertebral arteries. Normal basilar artery with a normal basilar bifurcation. The visualized bilateral superior cerebellar (SCA) arteries are normal. Normal bilateral P1, P2 and visualized P3 segments of the posterior cerebral arteries. There is no demonstrated aneurysm of the [place]. There is no demonstrated abnormality of the visualized brain. Partial opacification of the right maxillary sinus. Diffuse enlargement of the thyroid gland. AORTIC ARCH: There is a bovine origin of the great vessels arising from the aortic arch with a common origin of the brachiocephalic and left common carotid artery. Normal origin of the left subclavian artery. RIGHT CAROTID ARTERIES: Normal right common carotid artery (CCA). Normal right common carotid bulb. Normal origin of the right internal carotid (ICA) artery without a hemodynamically significant stenosis. Normal visualized cervical portion of the right internal carotid artery. Normal origin of the right external carotid artery (ECA). LEFT CAROTID ARTERIES: Normal left common carotid artery (CCA). Normal left common carotid bulb. Normal origin of the left internal carotid (ICA) artery without a hemodynamically significant stenosis. Normal visualized cervical portion of the left internal carotid artery. Normal origin of the left external carotid artery (ECA). VERTEBRAL ARTERIES: Normal bilateral vertebral arteries. CT/CTA Head AND Neck W/ Contrast IMPRESSION: Normal CTA Head and neck with contrast. Partial opacification of the right maxillary sinus. Electronically Signed: Len Vallejo MD at 15:30 EDT ,
--- NOTE | 2024-06-27 14:38 | NURSING ---
NO OLD EKGS
[2024-06-27] MEDS: 0.9% Normal Saline (1000mL) 1,000 ML 1000 ML IV ×2 (14:44→16:32)
[2024-06-27 14:51] LABS: Absolute Lymphocyte Count 2.47 X10^3/uL (0.83-4.51); Absolute Neutrophil Count 8.9 X10^3/uL (2.0-7.7); Basophil# 0.05 X10^3/uL; Basophil% 0.4 % (0-1); Eosinophil# 0.25 X10^3/uL; Hemoglobin 11.5 g/dL (12.0-15.0); Lymphocyte # 2.47 X10^3/ul (0.83-4.51); Lymphocyte % 19.4 % (19-41); Mean Corp Hgb Conc 31.9 g/dL (32-36); Mean Corpuscular Hgb 28.3 pg (27.0-32.0); Mean Corpuscular Volume 88.7 fL (81-99); Mean Platelet Vol. 11.5 fl (6.2-12.0); Monocyte# 1.05 X10^3/uL; Monocyte% 8.2 % (0-10); NRBC Flagged by Analyzer 0 % (0-5); Neutrophil # 8.87 X10^3/uL (2.7-7.7); Neutrophil % 69.6 % (47-70); Platelet Count 283 K/mm3 (150-450); RBC Distribution Width CV 15.7 % (11.6-14.6); RBC Distribution Width SD 51.4 fl (35.1-43.9); Red Blood Count 4.06 M/mm3 (4.2-5.4); White Blood Count 12.7 K/mm3 (4.4-11.0)
[2024-06-27 15:02] LABS: Internal QC Validated? YES +Cl - CLEAR BKGD; Pregnancy, Serum, hCG Quali. NEGATIVE Negative
[2024-06-27 15:03] LABS: Anion Gap 7 (5-15); BUN 3 mg/dL (7-18); BUN/Creat Ratio 3.8 RATIO (10-20); Calcium,Total 9.5 mg/dL (8.5-10.1); Chloride 112 mmol/L (98-107); EST Glomerular Filtration Rate 86 mL/min (>60); Est Glom Filt Rate - Afr Amer 104 mL/min (>60); Estimated Creatinine Clearance 94.54 ml/min; Glucose 95 mg/dL (74-106); Potassium 3.5 mmol/L (3.5-5.1); Sodium Level 142 mmol/L (136-145)
[2024-06-27 15:28] LABS: Mucous, Urine 0 SEEN /hpf (<or=2+); Red Blood Cells-Urine 0 SEEN /hpf (0-5)
[2024-06-27 15:37] LABS: Color, Urine Yellow (Yellow); Glucose, Dipstick Normal (Normal); Ketone-Dipstick 5 mg/dl (Negative); Leukocyte Esterase-Dipstick Negative /ul (Negative); Nitrite-Dipstick Negative (Negative); Occult Blood-Urine Negative /ul (Negative); Protein-Dipstick 15 mg/dl (Negative); Specific Gravity, Urine 1.005 (1.002-1.030); Urine Bilirubin Dipstick Negative (Negative); Urine Clarity Sl. Cloudy (Clear); Urine Urobilinogen Normal (Normal)
[2024-06-27 16:01] LABS: Bacteria 3+ /hpf (None Seen); Squamous Epithelial Cells - UA 5-10 SEEN /hpf (5-10); Transitional Epithelial - Ur 0-5 SEEN /hpf (0-5); White Blood Cells 0-5 SEEN /hpf (0-5)
--- NOTE | 2024-06-27 18:24 | MRI_ITS ---
EXAM: MR HEAD WITHOUT AND WITH INTRAVENOUS CONTRAST CLINICAL INDICATION: diplopia TECHNIQUE: Multiplanar and multisequence MR images of the brain were obtained without and with intravenous contrast. CONTRAST: IV 12ML CLARISCAN COMPARISON: No relevant prior studies available. FINDINGS: BRAIN AND EXTRA-AXIAL SPACES: Unremarkable. No intra- or extra-axial hemorrhage. No evidence of acute infarct. No intracranial mass or mass effect. There is preservation of the de la paz/white matter interface. Posterior fossa structures are unremarkable. Ventricles are appropriate for age. No hydrocephalus. Basal cisterns are patent. SELLA: Unremarkable. Normal sella turcica, pituitary gland, infundibular stalk, optic chiasm and hypothalamus. AUDITORY SYSTEM: Unremarkable. The internal auditory canals are patent. BONES/JOINTS: Unremarkable. No discrete lytic or blastic abnormalities. SINUSES: Moderate mucosal thickening in the right maxillary sinus. No intrasinus air-fluid levels. MASTOID AIR CELLS: Unremarkable as visualized. Clear. ORBITS: Unremarkable as visualized. Both globes, extraocular muscles, optic nerves and retrobulbar fat appear unremarkable. VASCULATURE: Unremarkable as visualized. Normal flow voids in the major intracranial circulation. MRI/Brain W/WO Contrast IMPRESSION: No acute findings in the head/brain. No evidence of optic neuritis. Chronic sinusitis. Electronically Signed: Betzaida Mcclain MD at 20:53 EDT Reading Location ID and State: [facility] / [place] Tel , Service support ,
--- NOTE | 2024-06-27 18:25 | PCM.HP.STD ---
HPI - General General Date of Admission: 06/27/24 Date of Service: 06/27/24 Chief Complaint: diplopia HPI Narrative LILY QUIROZ, is a 34 F (transgender-biologically female) who presented to the emergency department at [facility] on 06/27/2024 due to diplopia. It developed rather suddenly earlier today at about 11 AM while she was watching TikTok videos on her phone. It was constant for about 3 hours so she decided to be evaluated emergency department. She does report she had an episode like this about 1 week ago that resolved. The patient reported that it was worse when she looked to her right and better when she looked to her left and that she felt unsteady and off-balance when she was ambulating. She denied any vertiginous symptoms and did have 1 episode of nausea and vomiting which is since resolved. She also complained of some blurred vision in her left eye. At the time of my evaluation the emergency department her diplopia had resolved and she was complaining of blurred vision centrally but not any blindness. She denies any other focal neurological deficits. She complains of generalized weakness in her bilateral lower extremities but no focal weakness and has no sensory changes. She does have a family history of stroke but all that history was at much older age. She also has a history of paroxysmal atrial fibrillation for which she takes a beta-michelle and aspirin. She was recently found to have hyperthyroidism and states she had a follow-up appointment with Dr. King betancourt. No medication changes were recommended at that time and she is unclear what the plan is. There is no documentation as of yet and [facility] with regards to this visit. Vital signs on presentation showed a temperature of 96.9, heart rate 94, respiratory rate was 18, blood pressure is 128/72 and pulse ox was 98% on room air. Orthostatic vitals were obtained and were positive in number but patient was asymptomatic. She was given IV fluids. CBC shows a mild leukocytosis with a white count of 12.7 and a mild anemia with a hemoglobin of 11.5. Differential was unremarkable. Chemistry panel was unremarkable. Her UA was unremarkable. She takes lithium at baseline and her lithium level was in the low therapeutic range at 0.60. CT brain and CT head and neck were both unremarkable other than partial opacification of the right maxillary sinus was identified. [facility] Medical History Atrial fibrillation Epilepsy Migraine GERD (gastroesophageal reflux disease) History of anorexia nervosa ADD (attention deficit disorder) Generalized anxiety disorder Post traumatic stress disorder (PTSD) Bipolar 1 disorder, depressed, severe Home Medications ?Medication ?Instructions ?Recorded ?Last Taken ?Type aspirin 81 mg tablet,delayed 81 mg PO DAILY 01/31/20 06/27/24 History release clonazepam 1 mg tablet 1 mg PO DAILY PRN Anxiety 01/31/20 06/27/24 History metoprolol succinate 50 mg 50 mg PO DAILY 01/31/20 06/27/24 History tablet,extended release 24 hr famotidine 20 mg tablet 20 mg PO BID 04/03/24 06/27/24 History pantoprazole 40 mg tablet,delayed 40 mg PO DAILY 04/03/24 06/27/24 History release topiramate 100 mg tablet (Topamax) 100 mg PO DAILY 04/03/24 06/27/24 History lithium carbonate 600 mg capsule 600 mg PO QPM 04/26/24 06/26/24 History dextroamphetamine-amphetamine ER 30 mg PO DAILY 05/25/24 06/27/24 History 30 mg 24hr capsule,extend release metformin 500 mg tablet 500 mg PO BID 05/25/24 06/27/24 History fluoxetine 10 mg capsule 10 mg PO DAILY 06/27/24 06/27/24 History lamotrigine 100 mg tablet 100 mg PO BID 06/27/24 06/27/24 History Allergy/AdvReac Type Severity Reaction Status Date / Time hydromorphone AdvReac Unknown PT UNSURE Verified 06/27/24 13:21 OF REACTION ketamine AdvReac Vomiting Verified 06/27/24 13:21 Family History Mother Diabetes Autoimmune disorder lupus Bleeding disorder MTHFR gene Cancer squamous cell skin cancer CVA (cerebral vascular accident) Anxiety Depression Grandmother Breast cancer Diabetes Brother Bowel disease crohn's Rheumatoid arthritis Brother Psoriasis Brother Alcoholism Anxiety Depression Surgical History History of mandibular surgery H/O sinus surgery Social History household members: family current occupational status: disabled 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 Smoking Status: Never smoker Electronic Cigarette Use: not used alcohol intake: never substance use type: does not use caffeine: Yes what type of physical activity do you participate in: none seatbelt use: always do you feel safe at home: Yes additional social history: ROS Constitutional Constitutional: Reports weakness; Denies anorexia, change in weight, chills, fatigue, fever(s), malaise, night sweats or other Eyes Eyes: Reports blurry vision, change in vision and double vision; Denies change in eye color, discharge from eye(s), erythema, eye pain, loss of vision or other ENT HEENT: Denies abnormal hearing, dysphagia, ear pain, epistaxis, headache(s), hearing loss, nasal congestion, nasal discharge, post nasal drip, sinus pressure, sore throat or other Cardiovascular Cardiovascular: Denies chest pain, claudication, dyspnea on exertion, edema, lightheadedness, orthopnea, palpitations, paroxysmal nocturnal dyspnea, rapid heart rate, syncope or other Respiratory/Chest Respiratory/Chest: Denies cough, dyspnea, excessive phlegm production, hemoptysis, productive cough, shortness of breath at rest, shortness of breath with exertion, wheezing or other Gastrointestinal Gastrointestinal: Denies abdominal pain, coffee ground emesis, constipation, diarrhea, dyspepsia, hematemesis, hematochezia, loose stools, melena, nausea, vomiting or other Genitourinary Genitourinary: Denies burning urination, difficulty urinating, dysuria, hematuria, nocturia, urinary frequency, urinary hesitancy, urinary incontinence, urinary urgency or other Musculoskeletal Musculoskeletal: Denies arthralgias, back pain, joint pain, joint stiffness, joint swelling, myalgias, neck pain or other Neurologic Neurologic: Reports abnormal gait and disequilibrium; Denies abnormal speech, confusion, dizziness, focal weakness, headache(s), numbness, paresthesias, seizure-like activity, seizures, syncope, tingling, tremor(s) or other Psychiatric Psychiatric: Reports anxiety and depression; Denies homicidal ideation, suicidal ideation or other Endocrine Endocrinology: Denies change in body appearance, cold intolerance, excessive sweating, heat intolerance, polydipsia, polyuria or other Hematologic/Lymphatic Hematologic/Lymphatic: Denies anemia, easy bleeding, easy bruising, lymphadenopathy or other Allergic/Immunologic Allergic/Immunologic: Denies rhinitis, hives, eczemia, asthma or other Vital Signs Vital Signs Vital Signs: 06/27/24 13:22 06/27/24 15:21 06/27/24 16:23 Temperature 96.9 F L Temperature Source Temporal Pulse Rate 94 75 Pulse Rate [Lying] 68 Pulse Rate [Sitting (for 1 minute prior to obtaining)] 66 Pulse Rate [Standing (for 1 minute prior to obtaining)] 84 Respiratory Rate 18 16 Blood Pressure 128/72 H 124/87 H Blood Pressure [Lying] 126/75 H Blood Pressure [Sitting (for 1 minute prior to obtaining)] 127/78 H Blood Pressure [Standing (for 1 minute prior to obtaining)] 103/57 L Blood Pressure Mean 90 99 Blood Pressure Mean [Lying] 92 Blood Pressure Mean [Sitting (for 1 minute prior to obtaining)] 94 Blood Pressure Mean [Standing (for 1 minute prior to obtaining)] 72 Pulse Ox 98 96 Oxygen Delivery Method Room Air Room Air 06/27/24 17:00 06/27/24 18:14 Temperature 98.5 F Temperature Source Pulse Rate 61 67 Pulse Rate [Lying] Pulse Rate [Sitting (for 1 minute prior to obtaining)] Pulse Rate [Standing (for 1 minute prior to obtaining)] Respiratory Rate 12 18 Blood Pressure 126/78 H 124/69 H Blood Pressure [Lying] Blood Pressure [Sitting (for 1 minute prior to obtaining)] Blood Pressure [Standing (for 1 minute prior to obtaining)] Blood Pressure Mean 94 87 Blood Pressure Mean [Lying] Blood Pressure Mean [Sitting (for 1 minute prior to obtaining)] Blood Pressure Mean [Standing (for 1 minute prior to obtaining)] Pulse Ox 100 99 Oxygen Delivery Method Room Air Weight Weight: 63.3 kg Body Mass Index (BMI) 21.8 Physical Exam Const alert, oriented x3, no apparent distress, average body habitus and well nourished Constitutional Narrative: Middle-aged, white female, sitting up in bed, male at bedside, currently appears comfortable, nontoxic General Appearance: cooperative HEENT normocephalic, head/scalp atraumatic, hearing grossly normal bilaterally and moist oral mucous membranes Eyes PERRL, EOMs intact bilaterally and conjunctivae normal Eyes Narrative: No scleral icterus Neck no lymphadenopathy and supple Neck Narrative: Trachea midline, mild thyroid enlargement noted Resp normal respiratory effort, no retractions, no use of accessory muscles and clear to auscultation bilaterally Auscultation: Negative for rales, rhonchi or wheezes Cardio regular rate, regular rhythm, S1 normal heart sound, S2 normal heart sound, no murmurs, no rub, no gallops and no clicks GI normal to inspection, nondistended, normoactive bowel sounds, soft to palpation and non-tender Extremity no clubbing, cyanosis or edema Extremity Narrative: Pedal and radial pulses are 2+ Neuro oriented x3, moves all extremities and no focal motor deficits Neuro Narrative: Reflexes are 3+ bilateral lower extremities 2+ bilateral upper extremities Speech: speech normal Psych Psych Narrative: Affect is flat, eye contact is good, patient interacts and answers questions appropriately Results Lab / Micro Data 06/27/24 14:43 06/27/24 14:43 Labs: Laboratory Results - last 24 hr 06/27/24 13:40: POC Glucose 99 06/27/24 14:43: WBC 12.7 H, RBC 4.06 L, Hgb 11.5 L, Hct 36.0 L, MCV 88.7, MCH 28.3, MCHC 31.9 L, RDW Std Deviation 51.4 H, RDW Coeff of Joe 15.7 H, Plt Count 283, MPV 11.5, Immature Gran % (Auto) 0.400, Neut % (Auto) 69.6, Lymph % (Auto) 19.4, [place] % (Auto) 8.2, Eos % (Auto) 2.0, Baso % (Auto) 0.4, Absolute Neuts (auto) 8.9 H, Absolute Lymphs (auto) 2.47, Nucleated RBC % 0, Sodium 142, Potassium 3.5, Chloride 112 H, Carbon Dioxide 23.0, Anion Gap 7, BUN 3 L, Creatinine 0.80, Estim Creat Clear Calc 94.54, Est GFR (MDRD) Af Amer 104, Est GFR (MDRD) Non-Af 86, BUN/Creatinine Ratio 3.8 L, Glucose 95, Calcium 9.5, Serum , Qual NEGATIVE, [place] 0.60 06/27/24 15:20: Urine Color Yellow, Urine Clarity Sl. Cloudy, Urine pH 7.0, Ur Specific [place] 1.005, Urine Protein 15 H, Urine Glucose (UA) Normal, Urine Ketones 5 H, Urine Occult Blood Negative, Urine Nitrite Negative, Urine Bilirubin Negative, Urine Urobilinogen Normal, Ur Leukocyte Esterase Negative, Urine RBC 0 SEEN, Urine WBC 0-5 SEEN, Ur Squamous Epith Cells 5-10 SEEN, Ur Transition Epith Cell 0-5 SEEN, Urine Bacteria 3+, Urine Mucus 0 SEEN Imaging Radiology Impression Head/Neck CTA 06/27/24 14:33 IMPRESSION: Normal CTA Head and neck with contrast. Partial opacification of the right maxillary sinus. Electronically Signed: Len Vallejo MD at 15:30 EDT , Assessment & Plan Assessment/Plan (1) Diplopia: (2) Leukocytosis: (3) Anemia: (4) Hyperthyroidism: PLAN: Plan Diplopia -Etiology is unclear -Will check MRI with and without contrast -Aspirin 81 mg daily to continue -Will start high intensity dose statin and obtain lipid profile -Check hemoglobin A1c -Hold on echocardiogram for now if MRI is positive would pursue -NIH as per stroke order set -[place] level is within normal limits -Neuroconsultation Leukocytosis -Etiology is unclear -Patient with no signs of infectious symptoms -Repeat in a.m. Mild anemia -Hemoglobin is 11.5 -Monitor -Consider outpatient further workup if remains low or inpatient workup if precipitous drop occurs Hyperthyroidism -Patient has seen outpatient primary care physician with regards to this and thyroid ultrasound was done on 06/02/2024 -Thyroid ultrasound showed bulky heterogeneous echotexture of both lobes of the thyroid and the isthmus -Currently on any methimazole -Antibody for Graves' thus far negative -Patient states she has seen Dr. Barreto virtually however no documentation is yet in [employer] -Check TSH and free T4 -If abnormal may need to discuss further with Dr. Barreto tomorrow PAF -Currently in normal sinus rhythm -Continue home metoprolol -Continue home aspirin -Monitor on telemetry -Follows with EP [facility] once yearly ADHD/depression/anxiety/bipolar disorder -Follows with psychiatry-Dr. MorganBlain -Continue outpatient follow-up -On metformin and Topamax to counteract side effects of psychiatric medications per discussion with patient's -No SI or HI -Continue Topamax, metformin, Lamictal, lithium, fluoxetine, clonazepam -Will hold ADHD medication while hospitalized unless patient requests and can bring in home dosing GERD -Continue home famotidine -Continue home PPI Transgender -Patient has biologically female and transgender to male with preferred name of Db DVT prophylaxis -Subcu Lovenox 40 daily CODE STATUS -Full code Charges/Coding Visit Charges Inpatient E&M: 51944 Init Hosp L2
[2024-06-27 19:26] LABS: Hemoglobin A1c 4.7 % (3.8-5.6)
[2024-06-27 19:34] LABS: T4 Free Direct 1.83 ng/dL (0.76-1.46); Thyroid Stim Hormone (TSH) < 0.005 uIU/mL (0.358-3.740)
[2024-06-27] MEDS: Aspirin 81 MG TAB.CHEW PO (22:30)
[2024-06-27] MEDS: Lactated Ringers 1,000 ML 75 ML IV (22:30)
[2024-06-27] MEDS: Atorvastatin Calcium 80 MG Tablet PO (22:30)
[2024-06-27] MEDS: 0.9% Saline Lock 10 ML Syringe IV (22:32)
[2024-06-28 03:00] VITALS: BP 106/50; PULSE 80; RESP 18; TEMP 36.6; O2SAT 100
[2024-06-28 05:44] LABS: Absolute Neutrophil Count 5.4 X10^3/uL (2.0-7.7); Basophil# 0.04 X10^3/uL; Basophil% 0.4 % (0-1); Eosinophil# 0.41 X10^3/uL; Eosinophils% 4.1 % (0-5); Hematocrit 30.5 % (37-47); Hemoglobin 9.7 g/dL (12.0-15.0); Lymphocyte % 33.6 % (19-41); Mean Corp Hgb Conc 31.8 g/dL (32-36); Mean Corpuscular Hgb 28.3 pg (27.0-32.0); Mean Corpuscular Volume 88.9 fL (81-99); Monocyte# 0.86 X10^3/uL; Monocyte% 8.5 % (0-10); NRBC Flagged by Analyzer 0 % (0-5); Neutrophil # 5.37 X10^3/uL (2.7-7.7); Platelet Count 230 K/mm3 (150-450); RBC Distribution Width CV 15.9 % (11.6-14.6); RBC Distribution Width SD 51.8 fl (35.1-43.9); Red Blood Count 3.43 M/mm3 (4.2-5.4); White Blood Count 10.1 K/mm3 (4.4-11.0)
[2024-06-28 06:36] LABS: AST(SGOT) 5 U/L (15-37); Alanine Aminotransfer ALT/SGPT 12 U/L (13-56); Albumin, Serum 2.5 g/dL (3.2-5.0); Alkaline Phosphatase 78 U/L (45-117); Anion Gap 6 (5-15); BUN 2 mg/dL (7-18); BUN/Creat Ratio 3.6 RATIO (10-20); Chloride 116 mmol/L (98-107); Cholesterol 105 mg/dL (200); Creatinine, Serum 0.56 mg/dL (0.55-1.02); EST Glomerular Filtration Rate 130 mL/min (>60); Est Glom Filt Rate - Afr Amer 157 mL/min (>60); Globulin 2.5 g/dL (2.2-4.2); Glucose 91 mg/dL (74-106); High Density Lipoprotein 35 mg/dL; Magnesium 1.9 mg/dL (1.6-2.6); Potassium 3.4 mmol/L (3.5-5.1); Sodium Level 144 mmol/L (136-145); Triglycerides 67 mg/dL; Very Low Density Lipoprotein 13 mg/dL (5-40)
[2024-06-28 08:34] VITALS: BP 111/66; PULSE 62; RESP 16; TEMP 36.4; O2SAT 98
[2024-06-28 08:37] LABS: Vitamin B12 226 pg/mL (211-911)
--- NOTE | 2024-06-28 08:55 | NEURO.CONS ---
Assessment and Plan: Neuro Assessment/Plan LILY QUIROZ is a 34 F with a past medical history of depression, anxiety, pAfib, being evaluated by Teleneurology for transient monocular diplopia. MRI unremarkable. Neuro exam normal. monocular diplopia(right eye) resolved. Neurologic causes of diplopia are typically binocular, making this unlikely to be primarily neurologic in origin. Could consider migraine phenomena but no headaches during/around event. Diagnosis: transient monocular diplopia, unlikely neurologic in etiology Plan: No further inpatient work up Recommend referral to ophthalmology as outpatient to assess for optic causes. I personally attended this patient and spent a total time of 35 minutes evaluating this patient including clinical assessment, review of chart, medical history imaging, and determining appropriate treatment and workup. HPI Consult Data Date of Consult: 06/28/24 HPI Narrative HPI Narrative: LILY QUIROZ, is a 34 F with history of depression, anxiety, BP1, hyperthyroidism, migraine who presents diplopia and blurry vision. Reported sudden onset of diplopia yesterday while watching TikTok. Lasted about ~3 hours. She reported only having double vision in her right eye. When she closed right eye normal vision, when she closed left eye double vision persisted. After the double vision resolved she reported blurry vision of the left eye. This lasted about 1 hour. She had right eye diplopia earlier in the week, but only lasted an hour and completely resolved. Denies numbness, weakness, trouble swallowing, cough, vertigo, headache. Did have some nausea/vomiting because of the double vision. Did have positive orthostatic vitals in the ED and was give IVF. CTH/CTA were normal. MRI Brain w/wo contrast completed and also normal. [facility] Medical History Depression Bipolar disorder Anxiety Hypothyroidism Epilepsy Migraine Atrial fibrillation GERD (gastroesophageal reflux disease) History of anorexia nervosa ADD (attention deficit disorder) Generalized anxiety disorder Post traumatic stress disorder (PTSD) Bipolar 1 disorder, depressed, severe Home Medications ?Medication ?Instructions ?Recorded ?Last Taken ?Type aspirin 81 mg tablet,delayed 81 mg PO DAILY 01/31/20 06/27/24 History release clonazepam 1 mg tablet 1 mg PO DAILY PRN Anxiety 01/31/20 06/27/24 History metoprolol succinate 50 mg 50 mg PO DAILY 01/31/20 06/27/24 History tablet,extended release 24 hr famotidine 20 mg tablet 20 mg PO BID 04/03/24 06/27/24 History pantoprazole 40 mg tablet,delayed 40 mg PO DAILY 04/03/24 06/27/24 History release topiramate 100 mg tablet (Topamax) 100 mg PO DAILY 04/03/24 06/27/24 History lithium carbonate 600 mg capsule 600 mg PO QPM 04/26/24 06/26/24 History dextroamphetamine-amphetamine ER 30 mg PO DAILY 05/25/24 06/27/24 History 30 mg 24hr capsule,extend release metformin 500 mg tablet 500 mg PO BID 05/25/24 06/27/24 History fluoxetine 10 mg capsule 10 mg PO DAILY 06/27/24 06/27/24 History lamotrigine 100 mg tablet 100 mg PO BID 06/27/24 06/27/24 History Allergy/AdvReac Type Severity Reaction Status Date / Time hydromorphone AdvReac Unknown PT UNSURE Verified 06/27/24 13:21 OF REACTION ketamine AdvReac Vomiting Verified 06/27/24 13:21 Family History Mother Diabetes Autoimmune disorder lupus Bleeding disorder MTHFR gene Cancer squamous cell skin cancer CVA (cerebral vascular accident) Anxiety Depression Grandmother Breast cancer Diabetes Brother Bowel disease crohn's Rheumatoid arthritis Brother Psoriasis Brother Alcoholism Anxiety Depression Surgical History History of mandibular surgery H/O sinus surgery Social History household members: family current occupational status: disabled 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 Smoking Status: Never smoker Electronic Cigarette Use: not used alcohol intake: never substance use type: does not use caffeine: Yes what type of physical activity do you participate in: none seatbelt use: always do you feel safe at home: Yes additional social history: Vital Signs Vital Signs Vital Signs: 06/27/24 13:22 06/27/24 15:21 06/27/24 16:23 Temperature 96.9 F L Temperature Source Temporal Pulse Rate 94 75 Pulse Rate [Lying] 68 Pulse Rate [Sitting (for 1 minute prior to obtaining)] 66 Pulse Rate [Standing (for 1 minute prior to obtaining)] 84 Pulse Strength Respiratory Rate 18 16 Respiratory Effort Respiratory Depth Respiratory Pattern Blood Pressure 128/72 H 124/87 H Blood Pressure [Lying] 126/75 H Blood Pressure [Sitting (for 1 minute prior to obtaining)] 127/78 H Blood Pressure [Standing (for 1 minute prior to obtaining)] 103/57 L Blood Pressure Mean 90 99 Blood Pressure Mean [Lying] 92 Blood Pressure Mean [Sitting (for 1 minute prior to obtaining)] 94 Blood Pressure Mean [Standing (for 1 minute prior to obtaining)] 72 Blood Pressure Source Blood Pressure Position Blood Pressure Location Pulse Ox 98 96 Oxygen Delivery Method Room Air Room Air 06/27/24 17:00 06/27/24 18:14 06/27/24 19:00 Temperature 98.5 F Temperature Source Pulse Rate 61 67 65 Pulse Rate [Lying] Pulse Rate [Sitting (for 1 minute prior to obtaining)] Pulse Rate [Standing (for 1 minute prior to obtaining)] Pulse Strength Respiratory Rate 12 18 16 Respiratory Effort Respiratory Depth Respiratory Pattern Blood Pressure 126/78 H 124/69 H 127/65 H Blood Pressure [Lying] Blood Pressure [Sitting (for 1 minute prior to obtaining)] Blood Pressure [Standing (for 1 minute prior to obtaining)] Blood Pressure Mean 94 87 85 Blood Pressure Mean [Lying] Blood Pressure Mean [Sitting (for 1 minute prior to obtaining)] Blood Pressure Mean [Standing (for 1 minute prior to obtaining)] Blood Pressure Source Blood Pressure Position Blood Pressure Location Pulse Ox 100 99 99 Oxygen Delivery Method Room Air Room Air 06/27/24 20:55 06/27/24 21:25 06/28/24 03:00 Temperature 98.1 F 97.8 F Temperature Source Oral Temporal Pulse Rate 57 L 80 Pulse Rate [Lying] Pulse Rate [Sitting (for 1 minute prior to obtaining)] Pulse Rate [Standing (for 1 minute prior to obtaining)] Pulse Strength Respiratory Rate 16 18 Respiratory Effort Normal Non-Labored Respiratory Depth Normal Respiratory Pattern Normal Blood Pressure 136/74 H 106/50 L Blood Pressure [Lying] Blood Pressure [Sitting (for 1 minute prior to obtaining)] Blood Pressure [Standing (for 1 minute prior to obtaining)] Blood Pressure Mean 94 68 Blood Pressure Mean [Lying] Blood Pressure Mean [Sitting (for 1 minute prior to obtaining)] Blood Pressure Mean [Standing (for 1 minute prior to obtaining)] Blood Pressure Source Monitor Blood Pressure Position Semi-Fowlers Blood Pressure Location Right Arm Pulse Ox 100 100 Oxygen Delivery Method Room Air Room Air Room Air 06/28/24 03:00 06/28/24 08:34 06/28/24 08:34 Temperature 97.6 F L Temperature Source Temporal Pulse Rate 62 Pulse Rate [Lying] Pulse Rate [Sitting (for 1 minute prior to obtaining)] Pulse Rate [Standing (for 1 minute prior to obtaining)] Pulse Strength Normal (2+) Respiratory Rate 16 Respiratory Effort Normal Non-Labored Respiratory Depth Respiratory Pattern Blood Pressure 111/66 Blood Pressure [Lying] Blood Pressure [Sitting (for 1 minute prior to obtaining)] Blood Pressure [Standing (for 1 minute prior to obtaining)] Blood Pressure Mean 81 Blood Pressure Mean [Lying] Blood Pressure Mean [Sitting (for 1 minute prior to obtaining)] Blood Pressure Mean [Standing (for 1 minute prior to obtaining)] Blood Pressure Source Monitor Blood Pressure Position Supine Blood Pressure Location Right Arm Pulse Ox 98 Oxygen Delivery Method Room Air 06/28/24 08:35 Temperature Temperature Source Pulse Rate Pulse Rate [Lying] Pulse Rate [Sitting (for 1 minute prior to obtaining)] Pulse Rate [Standing (for 1 minute prior to obtaining)] Pulse Strength Respiratory Rate Respiratory Effort Normal Non-Labored Respiratory Depth Normal Respiratory Pattern Normal Blood Pressure Blood Pressure [Lying] Blood Pressure [Sitting (for 1 minute prior to obtaining)] Blood Pressure [Standing (for 1 minute prior to obtaining)] Blood Pressure Mean Blood Pressure Mean [Lying] Blood Pressure Mean [Sitting (for 1 minute prior to obtaining)] Blood Pressure Mean [Standing (for 1 minute prior to obtaining)] Blood Pressure Source Blood Pressure Position Blood Pressure Location Pulse Ox Oxygen Delivery Method Room Air Weight Weight: 63.9 kg Body Mass Index (BMI) 21.4 EEG Results Procedure Details EEG Procedure Details: LILY QUIROZ is a 34 year old F with a past medical history of , who presents for evaluation of Electroencephalogram on DATE at TIME NIHSS NIHSS Nursing Documentation NIHSS Nursing Documentation: NIH Stroke Scale Start: 06/27/24 13:36 Freq: Status: Discharge Protocol: Activity Type Activity Date Activity User E-sign Co-sign Detail Recorded Client Recorded Date Recorded By Document 06/27/24 13:36 REMINGTON [id number] 06/27/24 13:37 REMINGTON 06/27/24 13:36 NIH Stroke Scale [NIHSS] A score of 0 is normal or asymptomatic . Total possible score is 42. Inpatient: RN or Physician to activate a stroke alert for onset of new stroke symptoms or with NIHSS increase >/= 3 points. Following change in neurological status, NIHSS will be performed per physician order or more frequently PRN. -1a. Level of Consciousness Alert; keenly responsive -1b. LOC Questions Answers BOTH questions correctly. -1c. LOC Commands Performs both tasks correctly . -2. Best Gaze Normal -3. Visual No visual loss -4. Facial Palsy Normal symmetrical movements -5a. Left Arm No drift; arm holds 90 (or 45 ) degrees for full 10 seconds -5b. Right Arm No drift; arm holds 90 (or 45 ) degrees for full 10 seconds -6a. Left Leg No drift; leg holds 30-degree position for full 5 seconds -6b. Right Leg No drift; leg holds 30-degree position for full 5 seconds -7. Limb Ataxia Absent -8. Sensory Mild-to- moderate sensory loss; -9. Best Language No aphasia; normal -10. Dysarthria Normal -11. Extinction and Inattention No abnormality -Total 1 Query Text:A score of 0 is normal or asymptomatic. Total possible score is 42 . ED: Notify Physician for NIHSS increase by > / = 3 points. Inpatient: RN or Physician to activate a stroke alert for NIHSS increase of > / = 3 points. NIHSS: Ischemic Stroke/TIA Start: 06/27/24 20:53 Text: For PCU Patients: NIH and Neuro Check every 4 Status: Complete hours, PRN and with change in RN caregiver. Freq: [id number] Protocol: Activity Type Activity Date Activity User E-sign Co-sign Detail Recorded Client Recorded Date Recorded By Document 06/27/24 20:55 MNT desktop 06/27/24 21:01 MNT 06/27/24 20:55 -1a. Level of Consciousness Alert; keenly responsive -1b. LOC Questions Answers BOTH questions correctly. -1c. LOC Commands Performs both tasks correctly . -2. Best Gaze Normal -3. Visual No visual loss -4. Facial Palsy Normal symmetrical movements -5a. Left Arm No drift; arm holds 90 (or 45 ) degrees for full 10 seconds -5b. Right Arm No drift; arm holds 90 (or 45 ) degrees for full 10 seconds -6a. Left Leg No drift; leg holds 30-degree position for full 5 seconds -6b. Right Leg No drift; leg holds 30-degree position for full 5 seconds -7. Limb Ataxia Absent -8. Sensory Mild-to- moderate sensory loss; -9. Best Language No aphasia; normal -10. Dysarthria Normal -11. Extinction and Inattention No abnormality -Total 1 Query Text:A score of 0 is normal or asymptomatic. Total possible score is 42 . ED: Notify Physician for NIHSS increase by > / = 3 points. Inpatient: RN or Physician to activate a stroke alert for NIHSS increase of > / = 3 points. Coma Scale [Assess] -Eye Opening Spontaneous -Motor Obeys Commands -Verbal Oriented [Total] -Coma Scale Total 15 Physical Exam Neuro oriented x3, CN's II-XII intact bilaterally, moves all extremities and no sensory deficits noted Coordination / Balance: [id number] test normal, [id number] test normal and tandem gait normal Speech: speech normal Gait (Neuro): normal gait Motor Exam: strength 5/5 throughout and no pronator drift Lab / Micro Data 06/28/24 05:19 06/28/24 05:19 Labs: Laboratory Results - last 24 hr 06/27/24 13:40: POC Glucose 99 06/27/24 14:43: WBC 12.7 H, RBC 4.06 L, Hgb 11.5 L, Hct 36.0 L, MCV 88.7, MCH 28.3, MCHC 31.9 L, RDW Std Deviation 51.4 H, RDW Coeff of Joe 15.7 H, Plt Count 283, MPV 11.5, Immature Gran % (Auto) 0.400, Neut % (Auto) 69.6, Lymph % (Auto) 19.4, [place] % (Auto) 8.2, Eos % (Auto) 2.0, Baso % (Auto) 0.4, Absolute Neuts (auto) 8.9 H, Absolute Lymphs (auto) 2.47, Nucleated RBC % 0, Sodium 142, Potassium 3.5, Chloride 112 H, Carbon Dioxide 23.0, Anion Gap 7, BUN 3 L, Creatinine 0.80, Estim Creat Clear Calc 94.54, Est GFR (MDRD) Af Amer 104, Est GFR (MDRD) Non-Af 86, BUN/Creatinine Ratio 3.8 L, Glucose 95, Hemoglobin A1c 4.7, Calcium 9.5, TSH < 0.005 L, Free T4 1.83 H, Serum , Qual NEGATIVE, [place] 0.60 06/27/24 15:20: Urine Color Yellow, Urine Clarity Sl. Cloudy, Urine pH 7.0, Ur Specific [place] 1.005, Urine Protein 15 H, Urine Glucose (UA) Normal, Urine Ketones 5 H, Urine Occult Blood Negative, Urine Nitrite Negative, Urine Bilirubin Negative, Urine Urobilinogen Normal, Ur Leukocyte Esterase Negative, Urine RBC 0 SEEN, Urine WBC 0-5 SEEN, Ur Squamous Epith Cells 5-10 SEEN, Ur Transition Epith Cell 0-5 SEEN, Urine Bacteria 3+, Urine Mucus 0 SEEN 06/28/24 05:19: WBC 10.1, RBC 3.43 L, Hgb 9.7 L, Hct 30.5 L, MCV 88.9, MCH 28.3, MCHC 31.8 L, RDW Std Deviation 51.8 H, RDW Coeff of Joe 15.9 H, Plt Count 230, MPV 11.0, Immature Gran % (Auto) 0.400, Neut % (Auto) 53.0, Lymph % (Auto) 33.6, [place] % (Auto) 8.5, Eos % (Auto) 4.1, Baso % (Auto) 0.4, Absolute Neuts (auto) 5.4, Absolute Lymphs (auto) 3.40, Nucleated RBC % 0, Sodium 144, Potassium 3.4 L, Chloride 116 H, Carbon Dioxide 22.0, Anion Gap 6, BUN 2 L, Creatinine 0.56, Estim Creat Clear Calc 140.10, Est GFR (MDRD) Af Amer 157, Est GFR (MDRD) Non-Af 130, BUN/Creatinine Ratio 3.6 L, Glucose 91, Calcium 9.0, Phosphorus 4.0, Magnesium 1.9, Total Bilirubin 0.40, AST 5 L, ALT 12 L, Alkaline Phosphatase 78, Total Protein 5.0 L, Albumin 2.5 L, Globulin 2.5, Albumin/Globulin Ratio 1.0, Triglycerides 67, Cholesterol 105, LDL Cholesterol 57, VLDL Cholesterol 13, HDL Cholesterol 35 L, Vitamin B12 226 Imaging Radiology Impression Head/Neck CTA 06/27/24 14:33 IMPRESSION: Normal CTA Head and neck with contrast. Partial opacification of the right maxillary sinus. Electronically Signed: Len Vallejo MD at 15:30 EDT , Brain MRI 06/27/24 18:24 IMPRESSION: No acute findings in the head/brain. No evidence of optic neuritis. Chronic sinusitis. Electronically Signed: Betzaida Mcclain MD at 20:53 EDT , Active Medications Active Medications Active Medications: Current Medications Generic Name Dose Route Start Last Admin Trade Name Freq PRN Reason Stop Dose Admin Acetaminophen 650 mg 06/27/24 20:53 Acetaminophen 325 Mg Tablet PO Q6H PRN PRN Pain 1-10 Or Fever>100.7 Aspirin 81 mg 06/28/24 08:00 06/28/24 08:40 Aspirin 81 Mg Tab.Chew PO Not Given BREAKFAST EDEN Atorvastatin Calcium 80 mg 06/27/24 22:00 06/27/24 22:30 Atorvastatin Calcium 80 Mg Tablet PO 80 mg QHS EDEN Administration Enoxaparin Sodium 40 mg 06/28/24 10:00 Enoxaparin 40 Mg/0.4 Ml Syringe SC DAILY EDEN Hydralazine HCl 5 mg 06/27/24 20:53 Hydralazine 20 Mg/Ml Vial IV 06/28/24 20:53 Q30M PRN maintain BP parameters with HR <60 Lactated Ringer's 1,000 mls @ 75 mls/hr 06/27/24 20:53 06/27/24 22:30 IV 75 mls/hr .[id number] EDEN Administration Sodium Chloride 250 mls @ 15 mls/hr 06/27/24 21:23 IV .[id number] PRN Additional IVPB Infusion Sodium Chloride 250 mls @ 15 mls/hr 06/27/24 21:23 IV .[id number] PRN Saline Flush Melatonin 3 mg 06/27/24 20:53 Melatonin 3 Mg Tablet PO QHS PRN PRN INSOMNIA Ondansetron HCl 4 mg 06/27/24 20:53 Ondansetron 4 Mg/2 Ml Vial IV Q8H PRN PRN NAUSEA/VOMITING Senna/Docusate Sodium 2 tablet 06/27/24 20:53 Senna/Docusate Sodium 1 Tablet PO BID PRN PRN Constipation Sodium Chloride 10 - 40 ml 06/27/24 21:23 06/27/24 22:32 0.9% Saline Lock 10 Ml Syringe IV 10 ml UD PRN Administration SALINE FLUSH
[2024-06-28 10:40] LABS: Ferritin 28 ng/mL (8-252); Iron 49 ug/dL (50-170); Iron Binding Capacity,Total 244 ug/dL (250-450); PERCENT IRON SATURATION 20.1 % (15.0-55.0)
[2024-06-28 11:55] VITALS: BMI 21.4
--- NOTE | 2024-06-28 12:58 | DS.PCM_ITS ---
Providers Date of Admission: 06/27/24 Date of Discharge: 06/28/24 Primary Care Physician: Dr. Chanelle Lea MD Consultations 06/27/24 20:53 Consult: Tele-Neurology Routine Consulting Provider: [facility] Reason for Consult: Diplopia EMERGENT Consult: No MD Notified: Yes Date Notified: 06/27/24 Time Notified: 21:37 Method of Notification: Answering Service Method of Consult:: Telemedicine Comments:: Dr Bradford is oncall Nursing Unit Staff Notify [facility] of Tele-Neurology Consult: Yes Reason For Visit: DIPOLPIA Diagnosis Discharge Diagnosis (1) Diplopia: Status: Acute Code(s): H53.2 - Diplopia (2) Leukocytosis: Status: Acute Code(s): D72.829 - Elevated white blood cell count, unspecified (3) Anemia: Status: Acute Code(s): D64.9 - Anemia, unspecified (4) Hyperthyroidism: Status: Acute Code(s): E05.90 - Thyrotoxicosis, unspecified without thyrotoxic crisis or storm Medications at Discharge Home Medications aspirin 81 mg tablet,delayed release 81 mg PO DAILY 01/31/20 clonazepam 1 mg tablet 1 mg PO DAILY PRN Anxiety 01/31/20 metoprolol succinate 50 mg tablet,extended release 24 hr 50 mg PO DAILY 01/31/20 famotidine 20 mg tablet 20 mg PO BID 04/03/24 pantoprazole 40 mg tablet,delayed release 40 mg PO DAILY 04/03/24 topiramate 100 mg tablet (Topamax) 100 mg PO DAILY 04/03/24 lithium carbonate 600 mg capsule 600 mg PO QPM 04/26/24 dextroamphetamine-amphetamine ER 30 mg 24hr capsule,extend release 30 mg PO DAILY 05/25/24 metformin 500 mg tablet 500 mg PO BID 05/25/24 fluoxetine 10 mg capsule 10 mg PO DAILY 06/27/24 lamotrigine 100 mg tablet 100 mg PO BID 06/27/24 ferrous sulfate 324 mg (65 mg iron) tablet,delayed release 324 mg PO QODAY 30 days #15 tabs 06/28/24 Hospital Course Operations None Procedures EKG and - (CTA head/neck, MRI brain with and without contrast) Summary of Care Provided Minutes Spent on Discharge: 35 Hospital Course: Patient presented to [facility] ED on 06/27/2024 with diplopia. Short hospital course as noted below. Discharged home with no therapy needs in stable condition on 06/28. 1. Diplopia, CVA ruled out ? Neurology followed. Presented with sudden onset right eye diplopia while watching videos on her phone. Symptoms lasted about 3 hours, resolved shortly after arrival to the ED. CTA head/neck unremarkable. MRI brain with and without contrast unremarkable. Per neurology, neuro exam normal and noted that neurologic causes of diplopia are typically binocular, making it unlikely that this was primarily neurologic in origin. Recommended outpatient referral to ophthalmology for further management. Lipid panel and A1c unremarkable. Stable for discharge home on 06/28. 2. Hyperthyroidism ? Recently diagnosed. Had virtual visit with [facility] training and development rep within the past week. TSH less than 0.005, free T4 1.83 on admit. Notably had TSH of less than 0.01 and free T4 of 4.33 on 05/25. Autoimmune workup negative to this point. Thyroid ultrasound on 06/02 showed slight enlargement of the thyroid but no focal lesions or other abnormalities. Recommended that patient follow-up closely with her training and development rep after discharge to get started on treatment for this. 3. Iron deficiency anemia ? Hemoglobin 11.5 on admit, decreased to 9.7 on hospital day 2. Initial hemoglobin was likely hemoconcentrated. Only other hemoglobin in our system was 12.2 in April 2024. Iron studies showed iron deficiency anemia with ferritin of only 28. Started patient on ferrous sulfate every other day on discharge and recommended she follow-up with her PCP for consideration of IV iron infusions in the near future. 4. ADHD/depression/anxiety/bipolar disorder ? Stable. Follows with Dr. Peterson with psychiatry in [place]. [place] level notably normal on admission. Continue home clonazepam daily as needed, Adderall, fluoxetine, lamotrigine, lithium. On metformin and Topamax to counteract side effects of psychiatric medications, continue these as well. 5. Transgender person ? Patient is biologically female and transgender to male with preferred name of Db. Chronic medical conditions: ? Paroxysmal A-fib: Follows with [facility] EP yearly. Remained in normal sinus rhythm during admission. Continue home metoprolol and aspirin on discharge. ? GERD: Continue home famotidine and PPI. Total clinical time spent by myself addressing the patient's medical issues, reviewing all the data, and collaborating with patient's care team: 35 minutes. Physical Exam Const alert, oriented x3, no apparent distress and average body habitus General Appearance: cooperative and comfortable HEENT normocephalic, head/scalp atraumatic, hearing grossly normal bilaterally, nasal mucous membranes and turbinates normal and moist oral mucous membranes Eyes PERRL, EOMs intact bilaterally and conjunctivae normal Neck full ROM Chest inspection of chest normal Resp normal respiratory effort, normal air movement, no use of accessory muscles and clear to auscultation bilaterally Cardio regular rate, regular rhythm, no murmurs and peripheral pulses 2+ throughout GI normal to inspection, nondistended, normoactive bowel sounds, soft to palpation, non-tender and non-distended Back/Spine normal ROM Extremity normal to inspection, full ROM and no pedal edema Skin no rashes or lesions noted Neuro moves all extremities, no focal motor deficits and no sensory deficits noted Speech: speech normal Psych mental status grossly normal Psych Narrative: Flat affect. Weight / BMI Weight Weight: 63.9 kg Body Mass Index (BMI) 21.4 ABG / Lab / Microbiology Data 06/28/24 05:19 06/28/24 05:19 Laboratory: Laboratory Results - last 24 hr 06/27/24 13:40: POC Glucose 99 06/27/24 14:43: WBC 12.7 H, RBC 4.06 L, Hgb 11.5 L, Hct 36.0 L, MCV 88.7, MCH 28.3, MCHC 31.9 L, RDW Std Deviation 51.4 H, RDW Coeff of Joe 15.7 H, Plt Count 283, MPV 11.5, Immature Gran % (Auto) 0.400, Neut % (Auto) 69.6, Lymph % (Auto) 19.4, [place] % (Auto) 8.2, Eos % (Auto) 2.0, Baso % (Auto) 0.4, Absolute Neuts (auto) 8.9 H, Absolute Lymphs (auto) 2.47, Nucleated RBC % 0, Sodium 142, Potassium 3.5, Chloride 112 H, Carbon Dioxide 23.0, Anion Gap 7, BUN 3 L, Creatinine 0.80, Estim Creat Clear Calc 94.54, Est GFR (MDRD) Af Amer 104, Est GFR (MDRD) Non-Af 86, BUN/Creatinine Ratio 3.8 L, Glucose 95, Hemoglobin A1c 4.7, Calcium 9.5, TSH < 0.005 L, Free T4 1.83 H, Serum , Qual NEGATIVE, [place] 0.60 06/27/24 15:20: Urine Color Yellow, Urine Clarity Sl. Cloudy, Urine pH 7.0, Ur Specific [place] 1.005, Urine Protein 15 H, Urine Glucose (UA) Normal, Urine Ketones 5 H, Urine Occult Blood Negative, Urine Nitrite Negative, Urine Bilirubin Negative, Urine Urobilinogen Normal, Ur Leukocyte Esterase Negative, Urine RBC 0 SEEN, Urine WBC 0-5 SEEN, Ur Squamous Epith Cells 5-10 SEEN, Ur Transition Epith Cell 0-5 SEEN, Urine Bacteria 3+, Urine Mucus 0 SEEN 06/28/24 05:19: WBC 10.1, RBC 3.43 L, Hgb 9.7 L, Hct 30.5 L, MCV 88.9, MCH 28.3, MCHC 31.8 L, RDW Std Deviation 51.8 H, RDW Coeff of Joe 15.9 H, Plt Count 230, MPV 11.0, Immature Gran % (Auto) 0.400, Neut % (Auto) 53.0, Lymph % (Auto) 33.6, [place] % (Auto) 8.5, Eos % (Auto) 4.1, Baso % (Auto) 0.4, Absolute Neuts (auto) 5.4, Absolute Lymphs (auto) 3.40, Nucleated RBC % 0, Sodium 144, Potassium 3.4 L , Chloride 116 H, Carbon Dioxide 22.0, Anion Gap 6, BUN 2 L, Creatinine 0.56, Estim Creat Clear Calc 140.10, Est GFR (MDRD) Af Amer 157, Est GFR (MDRD) Non-Af 130, BUN/Creatinine Ratio 3.6 L, Glucose 91, Calcium 9.0, Phosphorus 4.0, Magnesium 1.9, Iron 49 L, TIBC 244 L, Iron Saturation 20.1, Ferritin 28, Total Bilirubin 0.40, AST 5 L, ALT 12 L, Alkaline Phosphatase 78, Total Protein 5.0 L, Albumin 2.5 L, Globulin 2.5, Albumin/Globulin Ratio 1.0, Triglycerides 67, Cholesterol 105, LDL Cholesterol 57, VLDL Cholesterol 13, HDL Cholesterol 35 L, Vitamin B12 226, Folate 6.80 Radiography Diagnostic Testing: Radiology Impression Head/Neck CTA 06/27/24 14:33 IMPRESSION: Normal CTA Head and neck with contrast. Partial opacification of the right maxillary sinus. Electronically Signed: Len Vallejo MD at 15:30 EDT , Brain MRI 06/27/24 18:24 IMPRESSION: No acute findings in the head/brain. No evidence of optic neuritis. Chronic sinusitis. Electronically Signed: Betzaida Mcclain MD at 20:53 EDT , Meaningful Use Info Meaningful Use Meaningful Use Diagnoses (Choose all that apply): None applicable Ischemic Stroke Statin Dosing Therapy Reference: STATIN DOSE THERAPY REFERENCE: * Patients > 75 years receive moderate or high dose statin therapy. * Patients 75 years or YOUNGER should receive HIGH intensity statin dose unless contraindicated. You will be required to document reason for non-treatment if statin daily dose does not meet guidelines. HIGH DOSE STATIN THERAPY DAILY Atorvastatin > than or = to 40 mg Rosuvastatin > than or = to 20 mg Amlodipine + Atorvastatin > than or = to 2.5/40 mg Ezetimibe + Simvastatin 10/80 mg Simvastatin 80mg Discharge Plan Admission Admit Date/Time: 06/27/24 18:16 Primary Reason for Your Visit: double vision Attending Provider: Hakeem Young Primary Care Provider: Chanelle Lea Consulting Providers: Gene Mancilla; Georgia Rodgers; Andra Rapp; Annie Min; Sherri Parker; Dorian Salcido; Danuta Harden; Manny Blair; Checo Blancas; Richard Mack; Barbara Bradford; Jose Mancilla; Myranda Arvizu; Nathan Herndon; Cyn Lockhart; Nasir Porras; Mark Funk; Bryan Carvajal; Cierra Benton; Corry Ngo; Jenny Benton Instructions Additional Instructions / Restrictions: Continue all home medications as normal. Your iron levels are low so I prescribed an iron supplement for you to take every other day to help with this. You may be a candidate for IV iron infusions in the future, please discuss this with your primary care doctor at your next visit. Please follow-up with an experimental worker (eye doctor) in the office for your double vision soon. I discussed your hyperthyroidism over the phone with Dr. Momin with endocrinology and she will call you to arrange for either a follow-up appointment or for appropriate medication management for you. Discharge Orders/Prescriptions Prescriptions: New ferrous sulfate 324 mg (65 mg iron) tablet,delayed release (DR/EC) 324 mg PO QODAY 30 Days Qty: 15 2RF Continued famotidine 20 mg tablet 20 mg PO BID pantoprazole 40 mg tablet,delayed release (DR/EC) 40 mg PO DAILY topiramate [Topamax] 100 mg tablet 100 mg PO DAILY metformin 500 mg tablet 500 mg PO BID dextroamphetamine-amphetamine 30 mg capsule,extended release 24hr 30 mg PO DAILY metoprolol succinate 50 MG tablet extended release 24 hr 50 mg PO DAILY clonazepam 1 MG tablet 1 mg PO DAILY PRN (Reason: Anxiety) aspirin 81 MG tablet 81 mg PO DAILY lithium carbonate 600 mg capsule 600 mg PO QPM lamotrigine 100 mg tablet 100 mg PO BID fluoxetine 10 mg capsule 10 mg PO DAILY Referrals / Follow Up: Chanelle Lea MD [Primary Care Provider] - Disposition Disposition (needs filled in before D/C Order can be placed): Home, Self Care Charges/Coding Visit Charges Inpatient E&M: 92643 Disch Hosp >30min
--- NOTE | 2024-06-28 14:22 | CASEMGMT ---
Patient has order for discharge. RN CM in to discuss needs at discharge. Patient denies needs or help at discharge. Patient had no further questions or concerns.
[2024-06-28 14:25] VITALS: BP 115/68; PULSE 66; RESP 16; TEMP 36.7; O2SAT 99
--- NOTE | 2024-06-28 14:27 | PHA.DC.MC.R ---
Pharmacy [facility] has performed discharge medication reconciliation and counseling for this patient. 1. FERROUS SULFATE 324MG PO QODAY The patient's discharge medication list was reviewed for discrepancies and discrepancies were resolved. The patient was counseled on the following discharge medications and changes in medications for homegoing were reviewed. The Reason for Use, instructions for use, and potential side effects were reviewed for all new medications. The patient's questions regarding all of their medications were answered. The patient was able to verbally demonstrate an understanding of their discharge medications. Medications at Discharge Home Medications aspirin 81 mg tablet,delayed release 81 mg PO DAILY 01/31/20 clonazepam 1 mg tablet 1 mg PO DAILY PRN Anxiety 01/31/20 metoprolol succinate 50 mg tablet,extended release 24 hr 50 mg PO DAILY 01/31/20 famotidine 20 mg tablet 20 mg PO BID 04/03/24 pantoprazole 40 mg tablet,delayed release 40 mg PO DAILY 04/03/24 topiramate 100 mg tablet (Topamax) 100 mg PO DAILY 04/03/24 lithium carbonate 600 mg capsule 600 mg PO QPM 04/26/24 dextroamphetamine-amphetamine ER 30 mg 24hr capsule,extend release 30 mg PO DAILY 05/25/24 metformin 500 mg tablet 500 mg PO BID 05/25/24 fluoxetine 10 mg capsule 10 mg PO DAILY 06/27/24 lamotrigine 100 mg tablet 100 mg PO BID 06/27/24 ferrous sulfate 324 mg (65 mg iron) tablet,delayed release 324 mg PO QODAY 30 days #15 tabs 06/28/24
== END 2024-06-28 14:58 | disposition home or self-care (01) ==
LOC: ED 18:55 → PCU 19:11
PROVIDERS: Admitting Provider Internal Medicine; Emergency Provider Emergency Medicine; PCP Internal Medicine; Referring Provider Internal Medicine; Visit Provider Hospitalist
DX: H53.2 Diplopia (principal); F31.9 Bipolar disorder, unspecified; I48.0 Paroxysmal atrial fibrillation; G40.909 Epilepsy, unspecified, not intractable, without status epilepticus; F43.10 Post-traumatic stress disorder, unspecified; F41.1 Generalized anxiety disorder; Z79.82 Long term (current) use of aspirin; E05.90 Thyrotoxicosis, unspecified without thyrotoxic crisis or storm; D50.9 Iron deficiency anemia, unspecified; I95.1 Orthostatic hypotension; F90.0 Attention-deficit hyperactivity disorder, predominantly inattentive type; F64.0 Transsexualism; Z79.899 Other long term (current) drug therapy; D72.829 Elevated white blood cell count, unspecified
CPT/HCPCS: 36415; 70496; 70498; 70553; 80048; 80053; 80061; 80178; 81001; 82607; 82728; 82746; 82962; 83036; 83540; 83550; 83735; 84100; 84439; 84443; 84703; 85025; 93005; 96360; 96361; 97802; 99221; 99285; A9575; J7030; J7120; Q9967; A4216; G0378

== ENCOUNTER → 2024-10-10 | Outpatient (CLI) | payer MEDICARE, MEDICAID, SELFPAY ==
[2024-10-10 12:25] LABS: Absolute Lymphocyte Count 1.61 X10^3/uL (0.83-4.51); Absolute Neutrophil Count 6.2 X10^3/uL (2.0-7.7); Basophil# 0.04 X10^3/uL; Basophil% 0.5 % (0-1); Eosinophils% 3.4 % (0-5); Hematocrit 36.7 % (37-47); Hemoglobin 11.8 g/dL (12.0-15.0); Lymphocyte # 1.61 X10^3/ul (0.83-4.51); Lymphocyte % 18.4 % (19-41); Mean Corp Hgb Conc 32.2 g/dL (32-36); Mean Corpuscular Hgb 29.6 pg (27.0-32.0); Mean Platelet Vol. 11.7 fl (6.2-12.0); Monocyte# 0.57 X10^3/uL; Monocyte% 6.5 % (0-10); NRBC Flagged by Analyzer 0 % (0-5); Platelet Count 260 K/mm3 (150-450); RBC Distribution Width CV 13.3 % (11.6-14.6); RBC Distribution Width SD 44.9 fl (35.1-43.9); Red Blood Count 3.99 M/mm3 (4.2-5.4); White Blood Count 8.7 K/mm3 (4.4-11.0)
[2024-10-10 12:43] LABS: ALB/GLOB Ratio 1.2 RATIO (0.9-2.4); AST(SGOT) 6 U/L (15-37); Alanine Aminotransfer ALT/SGPT 12 U/L (13-56); Albumin, Serum 3.8 g/dL (3.2-5.0); Alkaline Phosphatase 92 U/L (45-117); Anion Gap 5 (5-15); BUN 4 mg/dL (7-18); BUN/Creat Ratio 4.2 RATIO (10-20); Chloride 112 mmol/L (98-107); Creatinine, Serum 0.94 mg/dL (0.55-1.02); EST Glomerular Filtration Rate 71 mL/min (>60); Est Glom Filt Rate - Afr Amer 86 mL/min (>60); Globulin 3.1 g/dL (2.2-4.2); Glucose 95 mg/dL (74-106); Potassium 3.7 mmol/L (3.5-5.1); Protein, Total 6.9 g/dL (6.4-8.2); Sodium Level 138 mmol/L (136-145)
[2024-10-11 15:09] LABS: Anti-Centromere B Ab <0.2 AI (0.0-0.9); Anti-Chromatin <0.2 AI (0.0-0.9); Anti-Jo <0.2 AI (0.0-0.9); Anti-Nuclear Antibody Test Negative (.); Anti-Scleroderma-70 AB <0.2 AI (0.0-0.9); Anti-dsDNA Ab <1 IU/mL (0-9); RNP Ab <0.2 AI (0.0-0.9); SJOGREN'S Anti-SS-A test < 0.2 AI (0.0-0.9); SJOGREN'S Anti-SS-B test < 0.2 AI (0.0-0.9); Smith Ab <0.2 AI (0.0-0.9)
[2024-10-11 16:10] LABS: Endomysial Antibody IgA Negative (Negative); Immunoglobulin A 231 mg/dL (87-352); t-Transglutaminase IgA <2 U/mL (0-3)
== END | disposition home or self-care (01) ==
PROVIDERS: PCP Internal Medicine; Referring Provider Internal Medicine; Visit Provider Internal Medicine
DX: R63.4 Abnormal weight loss (principal)
CPT/HCPCS: 36415; 80053; 82784; 83516; 85025; 86038; 86225; 86235; 86255

== ENCOUNTER 2025-03-13 18:04 | Emergency (ER) | payer MEDICARE, MEDICAID, SELFPAY ==
[2025-03-13 18:07] VITALS: BP 134/77; PULSE 88; RESP 14; TEMP 36.6; O2SAT 100; BMI 23.1
== END 2025-03-13 20:01 | disposition left against medical advice (07) ==
LOC: ED 20:21
PROVIDERS: PCP Internal Medicine
DX: Z53.21 Procedure and treatment not carried out due to patient leaving prior to being seen by health care provider (principal)

== ENCOUNTER → 2025-04-20 | Outpatient (CLI) | payer MEDICARE, MEDICAID, SELFPAY ==
[2025-04-20 12:26] LABS: Absolute Neutrophil Count 5.8 X10^3/uL (2.0-7.7); Basophil# 0.06 X10^3/uL; Basophil% 0.6 % (0-1); Eosinophil# 0.53 X10^3/uL; Hematocrit 39.7 % (37-47); Hemoglobin 13.6 g/dL (12.0-15.0); Lymphocyte % 32.1 % (19-41); Mean Corp Hgb Conc 34.3 g/dL (32-36); Mean Corpuscular Hgb 30.8 pg (27.0-32.0); Mean Corpuscular Volume 89.8 fL (81-99); Mean Platelet Vol. 10.6 fl (6.2-12.0); Monocyte% 7.6 % (0-10); NRBC Flagged by Analyzer 0 % (0-5); Neutrophil # 5.75 X10^3/uL (2.7-7.7); Neutrophil % 54.2 % (47-70); Platelet Count 298 K/mm3 (150-450); RBC Distribution Width CV 13.1 % (11.6-14.6); RBC Distribution Width SD 43.2 fl (35.1-43.9); Red Blood Count 4.42 M/mm3 (4.2-5.4); White Blood Count 10.6 K/mm3 (4.4-11.0)
[2025-04-20 12:29] LABS: Erythrocyte Sedimentation Rate < 1 mm/hr (0-30)
[2025-04-20 13:03] LABS: ALB/GLOB Ratio 1.9 RATIO (0.9-2.4); AST(SGOT) 13 U/L (<=31); Alanine Aminotransfer ALT/SGPT 9 U/L (<=34); Albumin, Serum 4.7 g/dL (3.5-5.0); Alkaline Phosphatase 64 U/L (35-104); Anion Gap 11 (5-15); BUN 12 mg/dL (4-19); BUN/Creat Ratio 10.8 RATIO (10-20); Carbon Dioxide 21.9 mmol/L (21.0-32.0); Chloride 104 mmol/L (98-108); Creatinine, Serum 1.15 mg/dL (0.70-1.20); EST Glomerular Filtration Rate 63 (>60); Globulin 2.5 g/dL (2.2-4.2); Glucose 97 mg/dL (70-99); Magnesium 2.5 mg/dL (1.5-2.2); Potassium 4.4 mmol/L (3.3-5.1); Protein, Total 7.2 g/dL (5.9-8.4); Sodium Level 137 mmol/L (133-145); Vitamin B12 565 pg/mL (180-914); Vitamin D,25 Hydroxy 20.3 ng/mL (30-100)
[2025-04-20 13:06] LABS: CRP < 3.00 mg/L (0.0-3.0)
[2025-04-23 14:08] LABS: ANTINUCLEAR ANTIBODIES DIRECT Negative (Negative)
== END | disposition home or self-care (01) ==
LOC: BIMLAB 08:22
PROVIDERS: PCP Internal Medicine; Referring Provider Physician Assistant; Visit Provider Physician Assistant
DX: G25.2 Other specified forms of tremor (principal); E55.9 Vitamin D deficiency, unspecified; R68.89 Other general symptoms and signs
CPT/HCPCS: 36415; 80053; 82306; 82607; 83735; 84443; 85025; 85652; 86038; 86140; 86225

== ENCOUNTER → 2025-07-20 | Outpatient (CLI) | payer MEDICARE, MEDICAID, SELFPAY ==
--- NOTE | 2025-07-20 07:38 | EKG12_ITS ---
Test Reason : LTDT, FATIGUE Blood Pressure : */* mmHG Vent. Rate : 64 BPM Atrial Rate : 64 BPM P-R Int : 178 ms QRS Dur : 84 ms QT Int : 410 ms P-R-T Axes : 60 78 66 degrees QTcB Int : 422 ms Normal sinus rhythm Normal ECG When compared with ECG of 27-Jun-2024 14:45, ST elevation now present in Inferior leads Non-specific change in ST segment in Anterior leads T wave inversion no longer evident in Inferior leads T wave inversion no longer evident in Anterior leads Confirmed by SELENA GREENWOOD, LATHA ([id number]), rewrite editor JANNA ARORA ([id number]) on 07/23/2025 8:40:53 AM Referred By: HONG VANCE Confirmed By: LATHA WALTERS MD
[2025-07-20 09:40] LABS: Lithium 0.91 mmol/L (0.60-1.20)
[2025-07-20 09:45] LABS: Anion Gap 9 (5-15); BUN 6 mg/dL (4-19); BUN/Creat Ratio 6.3 RATIO (10-20); Calcium,Total 9.8 mg/dL (7.6-11.0); Carbon Dioxide 23.5 mmol/L (21.0-32.0); Chloride 105 mmol/L (98-108); Glucose 103 mg/dL (70-99); Potassium 4.4 mmol/L (3.3-5.1)
== END | disposition home or self-care (01) ==
PROVIDERS: PCP Internal Medicine
DX: Z51.81 Encounter for therapeutic drug level monitoring (principal); Z79.899 Other long term (current) drug therapy; R53.83 Other fatigue
CPT/HCPCS: 36415; 80048; 80178; 84443; 93005

== ENCOUNTER 2025-08-09 14:16 | Emergency (ER) | payer MEDICARE, MEDICAID, SELFPAY ==
[2025-08-09 14:18] VITALS: BP 121/66; PULSE 89; RESP 18; TEMP 36.2; O2SAT 100; BMI 23.8
[2025-08-09] MEDS: DiphenhydrAMINE 50 MG/ML Syringe 25 MG IV (14:36)
--- NOTE | 2025-08-09 15:33 | EX.ED.VIS.HA ---
HPI History of Present Illness Chief Complaint: Headache Detail of Chief Complaint: Unilateral headache that started 4 days ago Informant: patient Onset/Context/Timing Onset: Days Context: Gradual and Onset Timing: Continuous Quality -Headache: Positive for Similar Prior Headaches (With the exception that is lasted for 4 days.) Location: Left side of her head Current Severity: Moderate Maximum Severity: Moderate Worsened by: Nothing specific Relieved by: Nothing Associated Symptoms/Injury Associated Symptoms: Positive for Nausea; Negative for Fever, Vomiting, Sore Throat, Sinus Pressure, Numbness, Tingling, Preceding Aura, Visual Changes, Blurred Vision, Photophobia or Visual Loss Injury - HERNANDEZ: Negative for Direct Trauma Narrative Narrative: Patient is a 35-year-old female. There is a strong family history of migraine headaches. She has never had a formal diagnosis of migraines. She denies fever, chills night sweats. She denies photophobia or sonophobia. She does endorse ringing or ears. She denies upper respiratory tract infectious symptoms. She does endorse nausea without abdominal pain, vomiting or diarrhea. She denies urologic symptoms. Her last menses was 2 weeks ago. She does not use any form of control because she claims she is not sexually active. She does have history of bipolar affective disorder, migraine headaches, GERD. She denies paresthesia, anesthesia or motor aches. She claims she has problems with her balance. There is no history of trauma. She is unable to tell me if her headaches are predominantly on the left side. She is taking [id number] medication which normally aborts the headache. This 1 has been continuous since onset on August 06. Prior similar symptoms: No Recent Illness/Hospitalization: No [facility] Medical History Depression Bipolar disorder Anxiety Hypothyroidism Hyperthyroidism Anemia Epilepsy Migraine Atrial fibrillation GERD (gastroesophageal reflux disease) History of anorexia nervosa ADD (attention deficit disorder) Generalized anxiety disorder Post traumatic stress disorder (PTSD) Bipolar 1 disorder, depressed, severe Home Medications ?Medication ?Instructions ?Recorded ?Last Taken ?Type aspirin 81 mg tablet,delayed 81 mg PO DAILY 01/31/20 06/27/24 History release metoprolol succinate 50 mg 50 mg PO DAILY 01/31/20 06/27/24 History tablet,extended release 24 hr pantoprazole 40 mg tablet,delayed 40 mg PO DAILY 04/03/24 06/27/24 History release dextroamphetamine-amphetamine ER 30 mg PO DAILY 05/25/24 06/27/24 History 30 mg 24hr capsule,extend release lamotrigine 100 mg tablet 100 mg PO BID 06/27/24 06/27/24 History hydroxyzine HCl 25 mg tablet 25 mg PO TID PRN 04/20/25 Unknown History lithium carbonate 600 mg capsule 900 mg PO TID 04/20/25 Unknown History lurasidone 40 mg tablet (Latuda) 40 mg PO BID 04/20/25 Unknown History Allergy/AdvReac Type Severity Reaction Status Date / Time aripiprazole (From Abilify) Allergy Rash Verified 08/09/25 14:17 brexpiprazole (From Rexulti) Allergy Rash Verified 08/09/25 14:17 haloperidol (From Haldol) Allergy Rash Verified 08/09/25 14:17 hydromorphone AdvReac Unknown PT UNSURE Verified 08/09/25 14:17 OF REACTION ketamine AdvReac Vomiting Verified 08/09/25 14:17 Family History Mother Diabetes Autoimmune disorder lupus Bleeding disorder MTHFR gene Cancer squamous cell skin cancer CVA (cerebral vascular accident) Anxiety Depression Grandmother Breast cancer Diabetes Brother Bowel disease crohn's Rheumatoid arthritis Brother Psoriasis Brother Alcoholism Anxiety Depression Surgical History History of mandibular surgery H/O sinus surgery Social History household members: family current occupational status: disabled 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 She has not been in the [place]. She does not recall any insect bites. ; Denies chills, fever(s), subjective, sweats or weight loss Eyes Eyes: Denies blurry vision, change in vision or diplopia ENT ENT ED: Denies ear pain, rhinorrhea or sore throat Cardiovascular Cardiovascular: Denies chest pain or palpitations Respiratory/Chest Respiratory/Chest: Denies cough, dyspnea or dyspnea on exertion Gastrointestinal Gastrointestinal: Reports nausea; Denies abdominal pain, diarrhea, melena or vomiting Musculoskeletal Musculoskeletal: Denies arthralgias, back pain, myalgias or neck pain Neurologic Neurologic: Denies headache(s), paresthesias or weakness Psychiatric Psychiatric: Denies anxiety or depression Endocrine Endocrinology: Denies polydipsia, polyphagia or polyuria Hematologic/Lymphatic Hematologic/Lymphatic: Denies easy bleeding or easy bruising EXAM Physical Exam Const Vital Signs: 08/09/25 14:18 Temperature 97.1 F L Temperature Source Temporal Pulse Rate 89 Respiratory Rate 18 Blood Pressure 121/66 H Blood Pressure Mean 84 Pulse Ox 100 Oxygen Delivery Method Room Air Positive well nourished and well developed General Appearance ED: well developed and NAD; Negative for cyanotic or diaphoretic HEENT Reports normocephalic, TM's clear and moist mucous membranes atraumatic Tympanic Membrane ED: Yes TM's clear Eyes PERRL and EOMs intact bilaterally Eyes Narrative: Patient has no photophobia. Funduscopic exam reveals normal cup-to-disc ratio. There is no papilledema. Venous pulsations noted bilaterally. General Eye ED: Negative for pale conjunctiva or scleral icterus Neck no lymphadenopathy, supple, no meningeal signs and no JVD Neck Narrative: Negative Kernig's and Brezinski sign. Resp normal respiratory effort and clear to auscultation bilaterally Cardio regular rate, regular rhythm, S1 normal heart sound, S2 normal heart sound and no murmurs GI non-tender and non-distended Back/Spine no CVA tenderness Extremity normal to inspection and normal capillary refill Neuro oriented x3, CN's II-XII intact bilaterally and no sensory deficits noted Neuro Narrative: There is no clonus Babinski sign noted bilaterally. Sensorium / Orientation: awake Coordination / Balance: [id number] test normal Speech: speech normal Gait (Neuro): normal gait Motor Exam: strength 5/5 throughout Psych Psych Narrative: Flat affect. Skin Skin Narrative: Pale otherwise normal MDM MDM MDM Narrative Medical decision making narrative: Differential diagnosis is intractable migraine with status. Since it is unilateral this would not be consistent with meningitis, encephalitis. With no history of trauma there is no concern for intracranial bleed. Patient is only 35 years of age and doubt temporal arteritis. Furthermore there is no tenderness over the temporal artery. Patient was medicated with 25 mg of diphenhydramine, 10 mg of Reglan and 15 mg of ketorolac IV. Will reassess in 30 to 60 minutes. Treatment and Re-Evaluation Narrative: Patient was reassessed at 1621. She reports a 10% improvement. In light of this we will order Keppra IV piggyback. Patient was reassessed at 1757. She is sitting up smiling. Her headache is improved significantly. Will discharge to home Discharge Plan Triage Chief Complaint: Headache ED Provider: Dylan Lea Dx/Rx/DC Orders Clinical Impression: Intractable vascular headache, Elevated blood-pressure reading without diagnosis of hypertension Instructions: Understanding Headache Pain Prescriptions: No Action pantoprazole 40 mg tablet,delayed release (DR/EC) 40 mg PO DAILY dextroamphetamine-amphetamine 30 mg capsule,extended release 24hr 30 mg PO DAILY lithium carbonate 600 mg capsule 900 mg PO TID lurasidone [Latuda] 40 mg tablet 40 mg PO BID Rx Instructions: must administer with food (at least 350 calories) hydroxyzine HCl 25 mg tablet 25 mg PO TID PRN metoprolol succinate 50 MG tablet extended release 24 hr 50 mg PO DAILY aspirin 81 MG tablet 81 mg PO DAILY lamotrigine 100 mg tablet 100 mg PO BID Primary Care Provider: Chanelle Lea Referrals: Chanelle Lea MD [Primary Care Provider, Internal Medicine] - 1-2 Weeks Print Language: Mauritian Disposition Disposition: Home, Self Care
[2025-08-09] MEDS: levETIRAcetam IV 1,500 MG in 0.9% Normal Saline (100mL Bag) 100 ML 460 MG IV (17:01)
[2025-08-09 18:14] VITALS: BP 106/69; PULSE 64; RESP 16; TEMP 36.2; O2SAT 100
== END 2025-08-09 18:15 | disposition home or self-care (01) ==
PROVIDERS: Emergency Provider Emergency Medicine; PCP Internal Medicine; Visit Provider Emergency Medicine
DX: G44.1 Vascular headache, not elsewhere classified (principal); F31.9 Bipolar disorder, unspecified; R03.0 Elevated blood-pressure reading, without diagnosis of hypertension; F41.1 Generalized anxiety disorder; Z79.82 Long term (current) use of aspirin; Z79.899 Other long term (current) drug therapy
CPT/HCPCS: 96365; 96375; 99282; A4216

== ENCOUNTER → 2025-09-04 | Outpatient (CLI) | payer MEDICARE, MEDICAID, SELFPAY ==
--- NOTE | 2025-09-04 16:48 | CT_ITS ---
PROCEDURE: BRAIN/HEAD W/WO CONTRAST 09/04/2025 REASON FOR EXAM: RECURRENT HEADACHES TECHNIQUE: Procedure Code: [id number] Modality: CT Procedure: BRAIN/HEAD W/WO CONTRAST Coronal and Sagittal reconstruction series were provided. CONTRAST: 45 VOLUME: Isovue 370 mL One or more dose reduction techniques were used (e.g., Automated exposure control, adjustment of the mA and/or kV according to patient size, use of iterative reconstruction technique). RADIATION DOSE SUMMARY: CTDlvol: 45 mGy DLP: 1682 mGycm FINDINGS: Noncontrast imaging of the brain demonstrates no intracranial mass or hemorrhage. Postcontrast imaging of the brain demonstrates no dural sinus thrombosis. No hydrocephalus. No extra-axial fluid collection. CT/Brain/Head W/WO Contrast IMPRESSION: Study within normal limits [facility]
--- OUTSIDE RECORDS SUMMARY | 2025-09-04 17:06 | XMS RPT_ITS | CCD ---
Author Organization [facility] ion [facility] Care Team Providers Care Dental Intern Name Role Phone RAMANAVARAPU, TAYLER Unavailable Unavailabl e ESTERLE, TIMMY M Unavailable Unavailable RAMANAVARAPU, TAYLER Unavailable Unavailabl e ESTERLE, TIMMY M Unavailable Unavailable Esters[place] Timmy M Primary Care Provider [phone] Adriana Mccallum Unavailable Unavailable EsterTimmy vann M Unavailable Unavailable Unknown, Referring Provider Unavailable Unav bryantable Mihcaela Wong Unavailable Unavailable Amy Tripathia Kae Primary Care Provider Adriana Mccallum Unavailable Unavailable Adriana Mccallum Unavailable Unavailable PSYC INTENSIVE OUPT PROGRAM, MG PSYCH INT Unavai labsoo Unavailable Adriana Beasley Unavailable Unavailable Klever Garza Unavailable Unavailable Nasir Rapp Unavailable Unavailable Annamarie Saenz Unavailable Unavailable [place] Timmy M Unavailable Unavailable Unavailable [place] JIMENES Timmy M Primary Care Provider [place] JIMENES Timmy M Primary Care Provider [phone] Didi Parra MD Unavailable Adriana Mccallum Unavailable Esteroso JIMENES Timmy M Primary Care Provider Didi Parra MD Unavailable Adriana Mccallum Unavailable Unavailable Unavailable [place] JIMENES Timmy M Primary Care Provider Didi Parra MD Unavailable Adriana Mccallum Unavailable Aida GREENWOOD, Didi Pal Unavailable Adriana Mccallum MD Unavailable Bhumi GREENWOOD, Timmy M Primary Care Provider Adriana Mccallum MD Unavailable BHUMI JIMENES, DR TIMMY Pal Primary Care Physician LEONARDO GREENWOOD, JUDY Attending Unavailable ESTERLE, TIMMY Primary Care Unavailable CHAUNCEY ROMERO Attending Unavailable Danny Lea MD G Primary Care Provider AMAN HORNE Attending Unavailable ESTERLE, TIMMY M Primary Care Unavailable ALVARO REYNOLDS Attending Unavailabl e LANA LEAYCIA G Primary Care Unavailable Unavailable Primary Care Provider UnavailAdriana Stanley MD Unavailable Lou GREENWOOD, Dorian Unavailable ESTERLE, TIMMY M Primary Care Unavailable ESTERLE, TIMMY M Primary Care Unavailable SOFIYA, SHRUTHI B Attending Unavailable ESTERLE, TIMMY M Primary Care Unavailable SOFIYA, SHRUTHI B Attending Unavailable ESTERLE, TIMMY M Primary Care Unavailable SOFIYA, SHRUTHI B Attending Unavailable ESTERLE, TIMMY M Primary Care Unavailable SOFIYA, SHRUTHI B Attending Unavailable ESTERLE, TIMMY M Primary Care Unavailable KARSTEN SHRUTHI Admitting Unavailable SHRUTHI SHELLEY Attending Unavailable KARSTEN SHRUTHI Consulting Unavailable JESUS, DANNY G Primary Care Unavailable FELIX INGRAM Attending Unavailable JESUS, DANNY G Primary Care Unavailable DESIREE WILLIAM Attending Unavailable JESUS, DANNY G Primary Care Unavailable ADRIANA MCCALLUM Attending Unavailable ESTERLE, TIMMY M Primary Care Unavailable SOFIYA, SHRUTHI B Attending Unavailable ESTERLE, TIMMY M Primary Care Unavailable SOFIYA, SHRUTHI B Attending Unavailable ESTERLE, TIMMY M Primary Care Unavailable ADRIANA MCCALLUM Attending Unavailable ESTERLE, TIMMY M Primary Care Unavailable SOFIYA, SHRUTHI B Attending Unavailable ESTERLE, TIMMY M Primary Care Unavailable ADRIANA MCCALLUM Attending Unavailable ADRIANA MCCALLUM Referring Unavailable ESTERLE, TIMMY M Primary Care Unavailable SOFIYA, SHRUTHI B Attending Unavailable ESTERLE, TIMMY M Primary Care Unavailable ADRIANA MCCALLUM Attending Unavailable ESTERLE, TIMMY M Primary Care Unavailable SHRUTHI ARRIAZA B Attending Unavailable ESTERLE, TIMMY M Primary Care Unavailable SHRUTHI ARRIAZA B Attending Unavailable ESTERLE, TIMMY M Primary Care Unavailable MCCALLUMADRIANA MOJICA Attending Unavailable ESTERLE, TIMMY M Primary Care Unavailable MCCALLUMADRIANA MOJICA Attending Unavailable ESTERLE, TIMMY M Primary Care Unavailable SOFIYA, SHRUTHI B Attending Unavailable ESTERLE, TIMMY M Primary Care Unavailable MCCALLUMADRIANA MOJICA Attending Unavailable MCCALLUMADRIANA MOJICA Referring Unavailable ESTERLE, TIMMY M Primary Care Unavailable SOFIYA, SHRUTHI B Attending Unavailable ESTERLE, TIMMY M Primary Care Unavailable PROVIDER, UNKNOWN Admitting Unavailable PROVIDER, UNKNOWN Attending Unavailable JOSE RO Attending Unavailable HONG ZARAGOZA Admitting Unav ailable NANDAM, NEEHARIKA Referring Unavailable JESUS, DANNY G Primary Care Unavailable NANDAM, NEEHARIKA Referring Unavailable JESUS, DANNY G Primary Care Unavailable NANDAM, NEEHARIKA Referring Unavailable JESUS, DANNY G Primary Care Unavailable NANDAM, NEEHARIKA Referring Unavailable JESUS, DANNY G Primary Care Unavailable HARSHAD, THERESAAR A Attending Unavailable JESUS, DANNY G Primary Care Unavailable SROUBEK, DORIAN Referring Unavailable JESUS, DANNY G Primary Care Unavailable SROUBEK, DORIAN Attending Unavailable SROUBEK, DORIAN Referring Unavailable JESUS, DANNY G Primary Care Unavailable NANDAM, NEEHARIKA Attending Unavailable NANDAM, NEEHARIKA Referring Unavailable JESUS, DANNY G Primary Care Unavailable NANDAM, NEEHARIKA Referring Unavailable JESUS, DANNY G Primary Care Unavailable Unavailable Primary Care Provider Unavailabl e Adriana Zee Attending Unavailable Adriana Zee Referring Unavailable [place], Danny Primary Care Unavailable Adriana Zee Attending Unavailable Adriana Zee Referring Unavailable Jesus, Danny Primary Care Unavailable Jesus, Danny Primary Care Unavailable MATTHIAS, FLORIN Attending Unavailable MATTHIAS, FLORIN Referring Unavailable [place], Danny Primary Care Unavailable [place], Danny Attending Unavailable [place], Danny Referring Unavailable [place], Danny Primary Care Unavailable Dylan Lea Attending Unavailable [place], Danny Primary Care Unavailable FLORIN RIZZO Attending Unavailable Ungerer, Paz Attending Unavailable Ungerer, Paz Referring Unavailable Jesus, Danny Primary Care Unavailable Adriana Zee Attending Unavailable Jesus, Danny Primary Care Unavailable [place], Danny Referring Unavailable Jesus, Danny Primary Care Unavailable Ungerer, Paz Attending Unavailable Jesus, Danny Referring Unavailable [place], Danny Primary Care Unavailable Jesus, Danny Attending Unavailable Jesus, Danny Referring Unavailable Jesus, Danny Primary Care Unavailable Provider, Ed Physician Attending Unavailab le Allergies Allergy Classification Reported Allergen(s) Allergy Type Date of Onset Reaction(s) Facility Adhesive Tape (1 source) Adhesive Tape Substance Allergy 8 Rash [facility] Ketamine (1 source) Ketamine; Translations: [ketamine] Drug Allergy [facility] Opioid Agonists (1 source) HYDROmorphone; Translations: [hydromorphone] Drug Allergy Ketamine (substance) [facility] (20 sources) Adhesive Tape Propensity to adverse reactions to drug 8 Rash [place], [place] (20 sources) HYDROmorphone; Translations: [hydromorphone] Drug Allergy 9 Vomiting, Ketamine (substance) [facility] (20 sources) Ketamine; Translations: [ketamine] Drug Allergy 1 Vomiting [facility] (20 sources) Methylphenidate; Translations: [methylphenidate] Drug Allergy 3 Mental Status Change [facility] (3 sources) Adhesive agent; Translations: [ADHESIVE] Propensity to adverse reactions to drug (disorder) 8 [facility] 2 Repository (10 sources) ARIPiprazole; Translations: [ARIPIPRAZOLE] Drug Allergy 4 Rash, Other [facility] 2 Repository (4 sources) brexpiprazole; Translations: [BREXPIPRAZOLE] Drug Allergy 5 Rash [facility] (6 sources) Haloperidol; Translations: [HALOPERIDOL] Drug Allergy 5 Rash, Other [facility] (1 source) brexpiprazole Drug Allergy 5 [facility] Repository (1 source) Haloperidol Drug Allergy 5 [facility] Repository (1 source) HYDROmorphone Drug Allergy 5 [facility] Repository (1 source) Ketamine Drug Allergy 5 [facility] Repository Medications Current Medications Medication Drug Class(es) Dates Sig (Normalized) Sig (Original) 24 hr amphetamine aspartate 7.5 mg / amphetamine sulfate 7.5 mg / dextroamphetamine saccharate 7.5 mg / dextroamphetamine sulfate 7.5 mg extended release oral capsule (20 sources) Central Nervous System Stimulant Start: 07-22-2024 Adderall XR 30 mg oral capsule, extended release Dose : 30 mg = 1 cap(s), Oral, qAM, # 90 cap(s), 0 Refill(s), 64.7 Start Date: 07/22/24 Status: Ordered Start: 01-06-2023 take 2 capsules by [facility] once daily Amphetamine-Dextroamphet ER 20 MG Oral Capsule Extended Release 24 Hour TAKE 2 CAPSULES DAILY. Quantity: 60 Refills: 0 Ordered: 03-Aug-2023 Hugo Joiner Start : 06-Jan-2023 Active OK TO FILL TODAY. Start: 03-28-2022 Amphetamine-De xtroamphetamine 20 MG Oral Tablet Quantity: 12 Refills: 0 Ordered: 28-Mar-2022 DO Start : 28-Mar-2022 Complete Start: 06-13-2021 take 1 tablet by mauro twice daily Amphetamine-Dextroamphetamine 5 MG Oral Tablet TAKE 1 TABLET TWICE DAILY WITH ADDERALL 20MG Quantity: 60 Refills: 0 Ordered: 23-Oct-2021 Adriana Mccallum MD Start : 13-Jun-2021 Active Start: 03-04-2021 Amphetamine-De xtroamphetamine 10 MG Oral Tablet Quantity: 60 Refills: 0 Ordered: 04-Mar-2021 DO Start : 04-Mar-2021 Complete Start: 11-11-2020 take 1 capsule by [facility] once daily Amphetamine-Dextroamphet ER 20 MG Oral Capsule Extended Release 24 Hour TAKE 1 CAPSULE DAILY FOR ADHD. Quantity: 30 Refills: 0 Adriana Beasley MD Start : 11-Nov-2020 Active Start: 10-14-2020 take 1 tablet by mauro twice daily Amphetamine-Dextroamphetamine 15 MG Oral Tablet Take 1 tablet twice daily Quantity: 60 Refills: 0 Adriana Beasley MD Start : 14-Oct-2020 Active Start: 10-14-2020 take 1 tablet by mauro th twice daily Amphetamine-Dextroamphetamine 15 MG Oral Tablet Take 1 tablet twice daily Quantity: 60 Refills: 0 Adriana Beasley MD Start : 14-Oct-2020 Active Start: 10-14-2020 take 1 tablet by mauro th twice daily Amphetamine-Dextroamphetamine 15 MG Oral Tablet Take 1 tablet twice daily Quantity: 60 Refills: 0 Adriana Beasley MD Start : 14-Oct-2020 Active Start: 03-19-2020 take 1 tablet by mauro th three times daily Amphetamine-Dextroamphetamine 20 MG Oral Tablet TAKE 1 TABLET 3 times daily Quantity: 90 Refills: 0 Ordered: 17-Dec-2022 Shania Brarera Start : 19-Mar-2020 Active Start: 03-19-2020 take 1 tablet by mauro twice daily Amphetamine-Dextroamphetamine 20 MG Oral Tablet Take 1 tablet twice daily Quantity: 60 Refills: 0 Ordered: 05-Jan-2023 Adriana Mccallum MD Start : 19-Mar-2020 Active Fill on or after 01/05/23 Start: 03-19-2020 take 1 tablet by mauro twice daily Amphetamine-Dextroamphetamine 30 MG Oral Tablet TAKE 1 TABLET Twice daily each morning and each day early in the afternoon Quantity: 60 Refills: 0 Ordered: 01-Apr-2022 Adriana Mccallum MD Start : 19-Mar-2020 Active Start: 02-21-2020 take 1 tablet by mauro twice daily Amphetamine-Dextroamphetamine 15 MG Oral Tablet Take 1 tablet twice daily Quantity: 60 Refills: 0 Adriana Mccallum MD Start : 21-Feb-2020 Active Start: 02-21-2020 take 1 tablet by mauro twice daily Amphetamine-Dextroamphetamine 10 MG Oral Tablet Take 1 tablet twice daily Quantity: 60 Refills: 0 Adriana Mccallum Start : 21-Feb-2020 Active Start: 10-17-2019 take 1 capsule by [facility] once daily in the morning Amphetamine-Dextroamphet ER 15 MG Oral Capsule Extended Release 24 Hour TAKE 1 CAPSULE DAILY IN THE MORNING. Quantity: 30 Refills: 0 Adriana Mccallum Start : 17-Oct-2019 Active Start: 10-17-2019 take 1 capsule by [facility] once daily Amphetamine-Dextroamphet ER 10 MG Oral Capsule Extended Release 24 Hour TAKE 1 CAPSULE DAILY FOR ADHD. Quantity: 30 Refills: 0 Michaela Wong Start : 17-Oct-2019 Active End: 01-29-2025 amphetamine-dextroamphetamin e XR (ADDERALL XR) 20 mg capsule Take 30 mg by mouth two times a day. 01/29/2025 Discontinued (Discontinued by Patient) Comment on above: Take 20 mg by mouth three times daily. Take 40 mg by mouth once daily. aspirin 81 mg oral tablet (20 sources) Platelet Aggregation Inhibitor, Nonsteroidal Anti-inflammatory Drug Start: 07-22-2024 take 1 dose by mouth once daily aspirin Dose : 81 mg =, Oral, qDay, 0 Refill(s) Start Date: 07/22/24 Status: Ordered Start: 05-21-2016 take 1 dose by mouth once aspi rin Dose : 325 mg =, Oral, Once Start Date: 05/21/16 Status: Ordered take 1 tablet by mouth once rose y aspirin, enteric coated (ASPIRIN, ENTERIC COATED) 81 mg EC tablet Take 81 mg by mouth once daily. Active take 1 tablet by mouth once rose y aspirin 81 MG tablet Take 81 mg by mouth daily 0 Active Comment on above: Take 81 mg by mouth once daily. benztropine mesylate 0.5 mg oral tablet (3 sources) Anticholinergic, Antihistamine Start: 01-12-20 take 1 tablet by mouth once daily benztropine (COGENTIN) 0.5 mg tablet Take 0.5 mg by mouth once daily. 01/12/2025 Active cetirizine hydrochloride 10 mg oral tablet (20 sources) Histamine-1 Receptor Antagonist Start: 11-09-20 Zyrtec 10 mg oral tablet Dose : 10 mg = 1 tab(s), Oral, qDay Start Date: 11/09/18 Status: Ordered Zyrtec 10 MG TAB S Quantity: 0 Refills: 0 Ordered: 01-Apr-2022 DO Active Comment on above: Take 10 mg by mouth once daily. 24 hr desvenlafaxine succinate 50 mg extended release oral tablet (4 sources) Serotonin and Norepinephrine Reuptake Inhibitor Start: 03-14-2019 Pristiq 50 mg oral tablet, extended release Dose : 50 mg = 1 tab(s), Oral, qDay, 0 Refill(s) Start Date: 03/14/19 Status: Ordered Start: 11-09-2018 desvenlafaxine Oral, qDay Start Date: 11/09/18 Status: Ordered famotidine 20 mg oral tablet (20 sources) Histamine-2 Receptor Antagonist Start: 07-22-2024 Zantac 360 10 mg oral tablet Dose : 10 mg = 1 tab(s), Oral, BID, 0 Refill(s) Start Date: 07/22/24 Status: Ordered Start: 08-09-2023 End: 07-28-2024 take 1 tablet by mouth twice daily famotidine (PEPCID) 20 mg tablet Indications: Gastroesophageal reflux disease, unspecified whether esophagitis present take 1 tablet by mouth twice a day 180 tablet 1 07/28/2024 Active Comment on above: Take 1 tablet by mauro th twice daily. TAKE 1 TABLET BY MAURO TH TWICE A DAY hydrOXYzine hydrochloride 25 mg oral tablet (3 sources) Antihistamine take 1 tablet by mouth every twelve hours as needed hydrOXYzine HCl (ATARAX) 25 mg tablet Take 25 mg by mouth two times a day as needed for anxiety. Active lamoTRIgine 100 mg oral tablet (20 sources) Mood Stabilizer, Anti-epileptic Agent Start: 12-27-19 End: 08-15-20 23 take 1 tablet by mouth twice daily lamoTRIgine (LAMICTAL) 100 mg tablet Take 1 tablet by mouth twice daily. 60 tablet 07/16/2023 Active Start: 12-27-2020 take 0.5 tablet by m outh twice daily lamoTRIgine 150 MG Oral Tablet take 1/2 tablet by mouth twice daily Quantity: 90 Refills: 0 Ordered: 11-Aug-2021 Adriana Mccallum MD Start : 27-Dec-2020 Active Start: 12-27-2020 take 1 tablet by mauro th once daily lamoTRIgine 100 MG Oral Tablet TAKE 1 TABLET BY MOUTH EVERY DAY Quantity: 90 Refills: 0 Ordered: 15-Apr-2021 Adriana Mccallum MD Start : 27-Dec-2020 Active Start: 12-27-2020 take 1 tablet by mauro th once daily, then take 1 tablet by mouth twice daily lamoTRIgine 25 MG Oral Tablet TAKE 1 TAB DAILY FOR 2 WEEKS, THEN TAKE 1 TAB TWICE DAILY Quantity: 45 Refills: 0 Adriana Mccallum MD Start : 27-Dec-2020 Active Start: 03-03-2018 End: 09-16-2019 take 2 tablets by mouth once daily lamoTRIgine (LAMICTAL) 150 MG tablet Take 2 tablets by mouth daily 60 tablet 0 03/03/2018 09/16/2019 Discontinued (Stop Taking at Discharge) Start: 05-21-2016 LaMICtal 200 m g oral tablet Dose : 200 mg = 1 tab(s), Oral, qDay Start Date: 05/21/16 Status: Ordered lamoTRIgine (CERVANTES ICTAL) 150 mg tablet Take 100 mg by mouth twice daily. 0 Active take 1 tablet by mauro th twice daily lamoTRIgine (LAMICTAL) 150 mg tablet Take 150 mg by mouth twice daily. 0 Active Comment on above: Take 150 mg by mouth twice daily. Take 100 mg by mouth twice daily. Take 1 tablet by mauro th twice daily. lithium carbonate 600 mg oral capsule (20 sources) Start: 07-22-2024 lithium 600 mg oral capsule Dose : 600 mg = 1 cap(s), Oral, qHS, 0 Refill(s) Start Date: 07/22/24 Status: Ordered Start: 12-21-2022 End: 08-15-2023 take 2 tablets by mouth twice daily lithium carbonate ER 300 mg CR tablet Take 2 tablets by mouth twice daily. 120 tablet 07/16/2023 Active Start: 02-20-2021 take 1 capsule by mo uth at bedtime Athalia Carbonate 300 MG Oral Capsule TAKE 1 CAPSULE BY MOUTH AT BEDTIME WITH LITHIUM CARBONATE 600MG Quantity: 90 Refills: 1 Ordered: 03-Jun-2022 Adriana Mccallum MD Start : 20-Feb-2021 Active Start: 02-20-2021 take 1 capsule by mo [facility] once daily at bedtime Athalia Carbonate 150 MG Oral Capsule TAKE 1 CAPSULE BY MOUTH EVERYDAY AT BEDTIME Quantity: 90 Refills: 0 Ordered: 14-Mar-2021 DO Start : 14-Mar-2021 Complete Start: 09-16-2019 take 1 capsule by mo uth twice daily Athalia Carbonate 600 MG Oral Capsule TAKE 1 CAPSULE BY MOUTH TWICE A DAY Quantity: 180 Refills: 1 Ordered: 15-Oct-2022 Adriana Mccallum MD Start : 16-Sep-2019 Active Start: 05-12-2015 End: 09-16-2019 lithium 300 mg oral tablet D ose : 300 mg = 1 tab(s), Oral, TID Start Date: 05/12/15 Status: Ordered End: 09-16-2019 take 2 tablets by mouth once daily at bedtime lithium 300 MG tablet Indications: at bedtime Take 600 mg by mouth daily 0 09/16/2019 Discontinued (Stop Taking at Discharge) Comment on above: Take 600 mg by mouth twice daily with meals. 600 AM 1200qhs Take 2 tablets by mo uth twice daily. lurasidone hydrochloride 60 mg oral tablet (16 sources) Atypical Antipsychotic Start: 12-07-19 End: 10-25-20 lurasidone (LATUDA) 60 mg tab tablet 12/07/2023 10/25/2024 Discontinued magnesium citrate 58.2 mg/ml oral solution (1 source) Start: 04-16-20 End: 04-17-20 magnesium citrate 1.745 g/30 mL oral liquid 17.45 gram(s) Dose = 300 mL, Oral, Daily, X 1 day(s), # 300 mL, 0 Refill(s) Start Date: 04/16/24 Stop Date: 04/17/24 Status: Ordered metFORMIN (20 sources) Biguanide Start: 07-22-20 take 1 dose by mouth twice daily MetFORMIN (Eqv-Fortamet) unsure of dose, Oral, BID, 0 Refill(s) Start Date: 07/22/24 Status: Ordered Start: 09-10-2021 End: 01-29-2025 take 1 tablet by mouth twice daily at mealtime metFORMIN (GLUCOPHAGE) 500 MG tablet Take 1 Tablet by mouth 2 times daily (with meals). 07/16/2023 Active Start: 09-10-2021 take 1 tablet by mauro th once daily at mealtime metFORMIN HCl - 500 MG Oral Tablet TAKE 1 TABLET DAILY WITH FOOD. Quantity: 30 Refills: 1 Ordered: 10-Sep-2021 Klever Garza MD Start : 10-Sep-2021 Active metformin HCl (M ETFORMIN ORAL) Take by mouth. 0 Active Comment on above: Take by mouth. Take 500 mg by mouth twice daily with meals. Take 1 tablet by mauro th twice daily with meals. 24 hr metoprolol succinate 50 mg extended release oral tablet (20 sources) beta-Adrenergic Michelle Start: 10-30-2024 End: 04-29-2025 take 1 tablet by mouth every hour metoprolol succinate ER (TOPROL XL) 50 mg 24 hr tablet Take 1 tablet by mouth every afternoon. Appointment needed 90 tablet 3 01/29/2025 04/29/2025 Active Start: 07-12-2024 End: 08-11-2024 take 1 tablet by mouth every hour metoprolol succinate ER (TOPROL XL) 50 mg 24 hr tablet Take 1 tablet by mouth every afternoon. Appointment needed 30 tablet 07/12/2024 Active Start: 10-04-2023 End: 07-12-2024 take 1 tablet by mouth once daily metoprolol succinate ER (TOPROL XL) 50 mg 24 hr tablet take 1 tablet by mouth every day 90 tablet 3 10/04/2023 07/12/2024 Discontinued Start: 07-16-2023 End: 08-15-2023 take 1 tablet by mouth once daily metoprolol succinate ER (TOPROL XL) 50 mg 24 hr tablet Take 1 tablet by mouth once daily. 30 tablet 0 07/16/2023 08/15/2023 Active Start: 08-27-2021 End: 08-27-2022 take 1 tablet by mouth once daily metoprolol succinate ER (TOPROL XL) 50 mg 24 hr tablet TAKE 1 TABLET BY MOUTH EVERY DAY 90 tablet 3 08/27/2022 Active Start: 10-26-2017 metoprolol suc cinate 50 mg oral tablet, extended release Dose : 50 mg = 1 tab(s), Oral, qDay, # 30 tab(s), 0 Refill(s) Start Date: 02/09/18 Status: Ordered take 1 tablet by mauro th once daily metoprolol tartrate (LOPRESSOR) 50 MG tablet Take 50 mg by mouth Daily with supper 0 Active Comment on above: Take 1 tablet by mauro th once daily. TAKE 1 TABLET BY MAURO TH EVERY DAY MULTIVITAMIN ORAL (3 sources) MULTIVITAMIN ORA L Take by mouth. Active ondansetron 4 mg oral tablet (2 sources) Serotonin-3 Receptor Antagonist Start: 11-09-20 take 1 tablet by mouth every four to six hours as needed for nausea and vomiting Zofran 4 mg oral tablet See Instructions, PRN As needed for nausea and vomiting, 1 tab(s) PO q4-6h prn, # 10 tab(s), 0 Refill(s) Start Date: 11/09/18 Status: Ordered 24 hr paliperidone 6 mg extended release oral tablet (16 sources) Atypical Antipsychotic Start: 12-07-19 End: 10-25-20 paliperidone ER (INVEGA) 6 mg 24 hr tablet 12/07/2023 10/25/2024 Discontinued pantoprazole 40 mg delayed release oral tablet (20 sources) Proton Pump Inhibitor Start: 07-22-20 pantoprazole unsure of dose, qDay, 0 Refill(s) Start Date: 07/22/24 Status: Ordered Start: 05-22-2024 End: 03-22-2025 take 1 tablet by mouth once daily pantoprazole DR (PROTONIX) 40 mg tablet Indications: Gastroesophageal reflux disease, unspecified whether esophagitis present TAKE 1 TABLET BY MOUTH EVERY DAY 90 tablet 1 03/22/2025 Active Start: 06-07-2018 End: 03-28-2024 take 1 tablet by mouth once daily pantoprazole DR (PROTONIX) 40 mg tablet Indications: Gastroesophageal reflux disease, unspecified whether esophagitis present take 1 tablet by mouth every day 90 tablet 1 05/22/2024 Active Start: 06-07-2018 Pantoprazole S odium 40 MG Oral Tablet Delayed Release Quantity: 30 Refills: 0 Ordered: 07-Jun-2018 DO Start : 07-Jun-2018 Active take 40 mg by mouth once daily pantoprazole sodium (PROTONIX) 40 MG PACK packet Take 40 mg by mouth daily 0 Active Comment on above: Take 1 tablet by mauro once daily. plecanatide 3 mg oral tablet (19 sources) Start: 09-01-2023 End: 10-25-2024 take 1 tablet by mouth once daily plecanatide (TRULANCE) 3 mg tablet Indications: Constipation, unspecified constipation type Take 1 tablet (3 mg) by mouth once daily. 30 tablet 09/01/2023 10/25/2024 Discontinued Comment on above: Take 1 tablet (3 mg) by mouth once daily. prazosin 1 mg oral capsule (3 sources) alpha-Adrenergic Michelle Start: 01-12-2025 take 1 capsule by mouth once daily at bedtime prazosin (MINIPRESS) 1 mg cap Take 1 mg by mouth daily at bedtime. 01/12/2025 Active Topamax (20 sources) Start: 07-22-2024 Topamax See Instructions, Oral qDay, 0 Refill(s) Start Date: 07/22/24 Status: Ordered Start: 01-29-2023 End: 01-29-2025 take 1 tablet by mouth once daily at bedtime topiramate (TOPAMAX) 100 mg tablet Take 100 mg by mouth daily at bedtime. 06/11/2023 01/29/2025 Discontinued (Discontinued by Patient) Start: 01-29-2023 take 3 tablets by mo uth at bedtime Topiramate 25 MG Oral Tablet TAKE 3 TABLET Bedtime Quantity: 270 Refills: 1 Ordered: 05-Mar-2023 Adriana Mccallum MD Start : 29-Jan-2023 Active Start: 01-29-2023 take 1 tablet by mauro th at bedtime, then take 2 tablets by mouth at bedtime, then take 3 tablets by mouth at bedtime Topiramate 25 MG Oral Tablet TAKE 1 tablet at bedtime for 2 weeks, then take 2 tablets at bedtime for 2 weeks, then take 3 tablets at bedtime Quantity: 90 Refills: 1 Ordered: 29-Jan-2023 Adriana Mccallum MD Start : 29-Jan-2023 Active Start: 01-27-2021 take 1 tablet by mauro th twice daily Topiramate 25 MG Oral Tablet take 1 tablet by mouth twice a day Quantity: 180 Refills: 0 Ordered: 30-Oct-2021 Adriana Mccallum MD Start : 27-Jan-2021 Active Start: 01-27-2021 take 1 tablet by mauro th once daily at bedtime Topiramate 25 MG Oral Tablet TAKE 1 TABLET BY MOUTH EVERYDAY AT BEDTIME Quantity: 30 Refills: 0 Ordered: 14-Mar-2021 Adriana Mccallum MD Start : 27-Jan-2021 Active Comment on above: Take 100 mg by mouth daily at bedtime. vortioxetine 10 mg oral tablet (20 sources) Start: 9 take 1 tablet by mouth once daily VORTIoxetine (TRINTELLIX) 10 MG TABS tablet Take 1 tablet by mouth daily 30 tablet 1 09/17/2019 Active Start: 09-17-2019 take 1 tablet by mauro th once daily VORTIoxetine (TRINTELLIX) 10 MG TABS tablet Take 1 tablet by mouth daily 30 tablet 1 09/17/2019 Active Start: 09-16-2019 take 1 tablet by mauro th once daily Trintellix 5 MG Oral Tablet Take 1 tablet daily Quantity: 30 Refills: 0 Adriana Mccallum Start : 16-Sep-2019 Active Start: 09-16-2019 take 1 tablet by mauro th once daily Trintellix 10 MG Oral Tablet TAKE 1 TABLET BY MOUTH EVERY DAY Quantity: 90 Refills: 0 Adriana Mccallum Start : 16-Sep-2019 Active Completed/Discontinued Medications Medication Drug Class(es) Dates Sig (Normalized) Sig (Original) acetylcysteine 600 mg oral tablet (20 sources) Antidote, Mucolytic, Antidote for Acetaminophen Overdose Start: 07-09-2022 End: 09-03-2022 take 1 tablet by mouth twice daily N-Acetyl Cysteine 600 MG Oral Tablet Take 1 tablet twice daily Quantity: 60 Refills: 1 Ordered: 09-Jul-2022 Adriana Mccallum MD Start : 09-Jul-2022 End : 03-Sep-2022 Complete Start: 07-09-2022 take 1 capsule by mo uth twice daily NAC 600 MG Oral Capsule TAKE 1 CAPSULE TWICE A DAY Quantity: 60 Refills: 0 Ordered: 16-Jul-2022 DO Start : 09-Jul-2022 Complete Start: 11-18-2020 take 1 tablet by mauro th once daily N-A-C Sustain 600 MG Oral Tablet Extended Release Take 1 tablet daily Quantity: 30 Refills: 2 Ordered: 18-Nov-2020 Klever Garza MD Start : 18-Nov-2020 Active ARIPiprazole 10 mg oral tablet (20 sources) Atypical Antipsychotic Start: 06-16-2023 End: 12-29-2023 take 1 tablet by mouth once daily ARIPiprazole (ABILIFY) 10 mg tablet Take 1 tablet by mouth once daily. 30 tablet 0 07/16/2023 12/29/2023 Discontinued Start: 12-22-2022 take 0.5 tablet by m [facility] once daily ARIPiprazole (ABILIFY) 15 mg tablet Take 1/2 tablet by mouth once daily. 15 tablet 0 12/22/2022 Active take 1 tablet by mauro th once daily ARIPiprazole 10 MG Oral Tablet TAKE 1 TABLET BY MOUTH EVERY DAY Quantity: 30 Refills: 0 Ordered: 25-May-2023 Adriana Mccallum MD Active Comment on above: Take 1/2 tablet by m outh once daily. Take 1 tablet by mauro th once daily. asenapine 5 mg sublingual tablet (19 sources) Atypical Antipsychotic Start: 1 take 1 tablet under the tongue once daily Saphris [address] Tablet Subling[address] 1 TABLET DAILY SUBLINGUALLY Quantity: 90 Refills: 1 Ordered: 10-Feb-2021 Adriana Mccallum MD Start : 10-Feb-2021 Active Start: 01-21-2021 Asenapine Male ate 10 MG Sublingual Tablet Sublingual Take one tablet at night sublingually. Quantity: 30 Refills: 2 Ordered: 21-Jan-2021 Adriana Mccallum MD Start : 21-Jan-2021 Active Start: 10-22-2020 Asenapine Male ate 10 MG Sublingual Tablet Sublingual Take one tablet at night sublingually. Quantity: 30 Refills: 1 Adriana Beasley MD Start : 22-Oct-2020 Active Start: 04-18-2020 take 1 tablet under the tongue once daily in the morning Asenapine Maleate 5 MG Sublingual Tablet Sublingual Take 1 tablet once daily in the morning sublingually Quantity: 30 Refills: 1 Adriana Beasley MD Start : 18-Apr-2020 Active Start: 04-18-2020 take 1 tablet under the tongue twice daily Saphris 5 [address] Tablet Sublingual [address] 1 TABLET Twice daily Quantity: 60 Refills: 0 Adriana Beasley MD Start : 18-Apr-2020 Active Start: 04-18-2020 take 1 tablet under the tongue twice daily Saphris 2.5 [address]ual Tablet Sublingual PL[address] 1 TABLET Twice daily Quantity: 60 Refills: 2 Adriana Mccallum MD Start : 18-Apr-2020 Active azelastine hydrochloride 0.137 mg/actuat metered dose nasal spray (20 sources) Histamine-1 Receptor Antagonist Start: 03-11-2018 Azelastine HCl - 0.1 % Nasal Solution Quantity: 30 Refills: 0 Ordered: 11-Mar-2018 DO Start : 11-Mar-2018 Active Start: 03-11-2018 Azelastine HCl - 0.1 % Nasal Solution Quantity: 30 Refills: 0 Start : 11-Mar-2018 Active bisacodyl 5 mg delayed release oral tablet (16 sources) Stimulant Laxative Start: 06-21-2024 End: 01-29-2025 take 1 tablet by mouth once daily as needed bisacodyl EC (DULCOLAX, BISACODYL,) 5 mg EC tablet Indications: Irritable bowel syndrome with constipation Take 1-2 tablets by mouth once daily as needed for constipation. for constipation. 10 tablet 06/21/2024 01/29/2025 Discontinued (Discontinued by Patient) Start: 04-16-2024 End: 04-19-2024 Dulcolax Laxative 10 mg rect al suppository Dose : 10 mg = 1 supp, Rectal, Daily, X 3 day(s), # 3 supp, 0 Refill(s), 04/19/24 10:09:00 PM EDT Start Date: 04/16/24 Stop Date: 04/19/24 Status: Ordered cariprazine 1.5 mg oral capsule (20 sources) Atypical Antipsychotic Start: 01-23-2022 take 1 capsule by mouth once daily Vraylar 1.5 MG Oral Capsule TAKE 1 CAPSULE Daily Quantity: 30 Refills: 1 Ordered: 18-Nov-2022 Adriana Mccallum MD Start : 23-Jan-2022 Active Start: 04-15-2021 take 1 capsule by mo uth once daily Vraylar 3 MG Oral Capsule TAKE 1 CAPSULE Daily Quantity: 90 Refills: 1 Ordered: 15-Oct-2022 Adriana Mccallum MD Start : 23-Jan-2022 Active Start: 04-15-2021 take 1 capsule by mo ut once daily Vraylar 4.5 MG Oral Capsule TAKE 1 CAPSULE Daily Quantity: 30 Refills: 1 Ordered: 28-Jan-2022 Adriana Mccallum MD Start : 15-Apr-2021 Active Start: 04-15-2021 take 1 capsule by mo uth once daily Vraylar 1.5 MG Oral Capsule TAKE 1 CAPSULE BY MOUTH EVERY DAY Quantity: 90 Refills: 0 Ordered: 27-Oct-2021 Adriana Mccallum MD Start : 15-Apr-2021 Active Comment on above: Take 3 mg by mouth o nce daily. cephalexin 500 mg oral capsule (1 source) Cephalosporin Antibacterial Start: take 1 capsule by mouth twice daily Cephalexin 500 MG Oral Capsule TAKE 1 CAPSULE BY MOUTH TWICE A DAY Quantity: 20 Refills: 0 Ordered: 28-Apr-2021 DO Start : 28-Apr-2021 Complete citalopram 10 mg oral tablet (20 sources) Serotonin Reuptake Inhibitor Start: 0 take 1 tablet by mouth once daily Citalopram Hydrobromide 10 MG Oral Tablet TAKE 1 TABLET BY MOUTH EVERY DAY Quantity: 90 Refills: 0 Ordered: 20-Oct-2022 Adriana Mccallum MD Start : 25-Dec-2019 Active Start: 12-25-2019 take 1 tablet by mauro th once daily Citalopram Hydrobromide 20 MG Oral Tablet TAKE 1 TABLET BY MOUTH EVERY DAY Quantity: 30 Refills: 1 Ordered: 22-Sep-2022 Adriana Mccallum MD Start : 25-Dec-2019 Active Comment on above: Take 10 mg by mouth once daily. clonazePAM 1 mg oral tablet (20 sources) Benzodiazepine Start: 07-16-20 End: 01-30-20 25 take 0.5 tablet by mouth once daily as needed for anxiety and anxiety, then take 1 tablet by mouth at bedtime as needed for anxiety and anxiety clonazePAM (KLONOPIN) 1 mg tablet May take 0.5 tablets by mouth once daily as needed for anxiety. May also take 1 tablet at bedtime as needed for anxiety. 0 07/16/2023 01/29/2025 Discontinued (Discontinued by Patient) Start: 10-14-2020 take 1 tablet by mauro th twice daily clonazePAM 1 MG Oral Tablet Take 1 tablet twice daily Quantity: 60 Refills: 2 Adriana Beasley MD Start : 14-Oct-2020 Active Start: 10-14-2020 take 1 tablet by mauro twice daily clonazePAM 1 MG Oral Tablet Take 1 tablet twice daily Quantity: 60 Refills: 2 Adriana Beasley MD Start : 14-Oct-2020 Active Start: 11-09-2018 Start: 12-07-2017 take 1 dose by mouth once rose y KlonoPIN Dose : 1 mg =, Oral, Daily, 0 Refill(s) Start Date: 11/09/18 Status: Ordered Start: 12-07-2017 take 1.5 tablets by mouth twice daily clonazePAM 1 MG Oral Tablet TAKE 1.5 TABLET Twice daily Quantity: 90 Refills: 0 Ordered: 11-Jun-2023 Adriana Mccallum MD Start : 07-Dec-2017 Active Start: 12-07-2017 take 1 tablet by mauro th twice daily clonazePAM 1 MG Oral Tablet Take 1 tablet twice daily Quantity: 60 Refills: 2 Ordered: 14-Dec-2022 Shania Barrera Start : 07-Dec-2017 Active take 1 tablet by mauro th twice daily as needed clonazePAM (KLONOPIN) 2 MG tablet Indications: 1mg to 2mg prn Take 2 mg by mouth 2 times daily as needed.. 0 Active Comment on above: Take 1 mg by mouth t wice daily as needed. May take 0.5 tablets by mouth once daily as needed for anxiety. May also take 1 tablet at bedtime as needed for anxiety. fluticasone propionate 0.05 mg/actuat metered dose nasal spray (20 sources) Corticosteroid Start: 03-11-2018 Fluticasone Propionate 50 MCG/ACT Nasal Suspension Quantity: 16 Refills: 0 Ordered: 11-Mar-2018 DO Start : 11-Mar-2018 Active Start: 03-11-2018 Fluticasone Pr opionate 50 MCG/ACT Nasal Suspension Quantity: 16 Refills: 0 Start : 11-Mar-2018 Active Start: 02-09-2018 take 1 dose nasal ro han twice daily Flonase 50 mcg/inh nasal spray Dose = 1 spray(s), Nostril, each, BID, 0 Refill(s) Start Date: 02/09/18 Status: Ordered take 2 spray(s) nasa l route once daily fluticasone (FLONASE) 50 MCG/ACT nasal spray Indications: two sprays per nostril 2 sprays by Nasal route daily 0 Active gabapentin 100 mg oral capsule (20 sources) Anti-epileptic Agent Start: 07-25-2019 take 1 capsule by mouth three times daily as needed for anxiety Gabapentin 100 MG Oral Capsule TAKE 1 CAPSULE 3 times daily PRN anxiety Quantity: 270 Refills: 0 Adriana Mccallum MD Start : 25-Jul-2019 Active Lactulose (15 sources) Osmotic Laxative Start: 06-21-2024 End: 01-29-2025 lactulose 20 gram/30 mL solution Indications: Irritable bowel syndrome with constipation Take 30 mL by mouth as needed (for constipation). 150 mL 06/21/2024 01/29/2025 Discontinued (Discontinued by Patient) Start: 06-21-2024 lactulose 20 g christopher/30 mL solution Indications: Irritable bowel syndrome with constipation Take 30 mL by mouth as needed (for constipation). 150 mL 06/21/2024 Active lisdexamfetamine dimesylate 30 mg oral capsule (2 sources) Central Nervous System Stimulant Start: 12-27-2020 take 1 capsule by mouth once daily in the morning Vyvanse 30 MG Oral Capsule TAKE 1 CAPSULE DAILY IN THE MORNING. Quantity: 30 Refills: 0 Adriana Mccallum MD Start : 27-Dec-2020 Active loratadine 10 mg oral tablet (20 sources) Start: 05-12-2019 take 1 tablet by mouth once daily Loratadine 10 MG Oral Tablet TAKE 1 TABLET BY MOUTH EVERY DAY FOR ALLERGIES Quantity: 30 Refills: 0 Ordered: 12-May-2019 DO Start : 12-May-2019 Active take 1 capsule by mouth once derek ly loratadine (CLARITIN) 10 MG capsule Take 10 mg by mouth daily 0 Active methylphenidate hydrochloride 10 mg oral tablet (14 sources) Central Nervous System Stimulant Start: 12-01-2021 take 1.5 tablets by mouth twice daily Methylphenidate HCl - 10 MG Oral Tablet TAKE 1.5 TABLET Twice daily Quantity: 90 Refills: 0 Ordered: 28-Jan-2022 Adriana Mccallum MD Start : 01-Dec-2021 Active Start: 12-01-2021 take 1 tablet by mauro twice daily Methylphenidate HCl - 10 MG Oral Tablet TAKE 1 TABLET TWICE DAILY. Quantity: 60 Refills: 0 Ordered: 01-Dec-2021 Adriana Mccallum MD Start : 01-Dec-2021 Active Start: 02-20-2021 take 1 tablet by mauro th once daily Methylphenidate HCl ER 27 MG Oral Tablet Extended Release TAKE 1 TABLET BY MOUTH EVERY DAY Quantity: 30 Refills: 0 Ordered: 20-Feb-2021 DO Start : 20-Feb-2021 Complete mometasone furoate 1 mg/ml topical cream (20 sources) Corticosteroid Start: 03-08-2019 Mometasone Fur oate 0.1 % External Cream Quantity: 45 Refills: 0 Ordered: 08-Mar-2019 DO Start : 08-Mar-2019 Active Start: 03-08-2019 Mometasone Fur oate 0.1 % External Cream Quantity: 45 Refills: 0 Start : 08-Mar-2019 Active polyethylene glycol 3350 27697 mg powder for oral solution (15 sources) Osmotic Laxative Start: 06-21-2024 End: 01-29-2025 polyethylene glycol 3350 (MIRALAX) 17 gram/dose powder Indications: Irritable bowel syndrome with constipation Take 17 g by mouth once daily. Dissolve dose in 4 - 8 ounces of liquid and take as directed. 238 g 1 06/21/2024 01/29/2025 Discontinued (Discontinued by Patient) pregabalin 25 mg oral capsule (10 sources) Start: 06-11-2023 End: 12-29-2023 take 1 capsule by mouth once daily pregabalin (LYRICA) 25 mg capsule Take 25 mg by mouth once daily. 0 07/11/2023 12/29/2023 Discontinued Comment on above: Take 25 mg by mouth once daily. propranolol hydrochloride 10 mg oral tablet (20 sources) beta-Adrenergic Michelle Start: 08-22-2021 take 1 tablet by mouth every eight hours Propranolol HCl - 10 MG Oral Tablet TAKE 1 TABLET Every 8 hours PRN anxiety Quantity: 90 Refills: 2 Ordered: 22-Aug-2021 Klever Garza MD Start : 22-Aug-2021 Active 24 hr QUEtiapine 400 mg extended release oral tablet (20 sources) Atypical Antipsychotic Start: 08-10-2023 take 1 tablet by mouth at bedtime QUEtiapine Fumarate ER 400 MG Oral Tablet Extended Release 24 Hour TAKE 1 TABLET Bedtime Quantity: 14 Refills: 0 Ordered: 10-Aug-2023 Hugo Joiner Start : 10-Aug-2023 Active Start: 11-04-2020 End: 10-25-2024 take 1 tablet by mouth once daily at bedtime QUEtiapine (SEROQUEL) 100 mg tablet Take 1 tablet by mouth daily at bedtime. 30 tablet 07/16/2023 10/25/2024 Discontinued Start: 11-04-2020 End: 10-25-2024 take 1 tablet by mouth once daily at bedtime QUEtiapine Fumarate 300 MG Oral Tablet TAKE 1 TABLET BY MOUTH EVERYDAY AT BEDTIME Quantity: 30 Refills: 1 Ordered: 11-Dec-2022 Adriana Mccallum MD Start : 11-Dec-2022 Active Start: 11-04-2020 take 1 tablet by mauro once daily at bedtime QUEtiapine Fumarate 200 MG Oral Tablet TAKE 1 TABLET BY MOUTH EVERYDAY AT BEDTIME Quantity: 90 Refills: 1 Ordered: 15-Oct-2022 Adriana Mccallum MD Start : 04-Nov-2020 Active Start: 11-04-2020 take 1 tablet by mauro th at bedtime QUEtiapine Fumarate 400 MG Oral Tablet TAKE 1 TABLET AT BEDTIME. Quantity: 30 Refills: 2 Ordered: 01-Dec-2022 Adriana Mccallum MD Start : 04-Nov-2020 Active cancel quetiapine 300mg Start: 10-17-2020 take 1 tablet by mauro th at bedtime QUEtiapine Fumarate 50 MG Oral Tablet TAKE 1 TABLET AT BEDTIME WITH QUETIAPINE 200MG Quantity: 30 Refills: 1 Ordered: 15-Oct-2022 Adriana Mccallum MD Start : 15-Oct-2022 Active take 4 tablets by mo mih every twenty-four hours as needed QUEtiapine (SEROQUEL) 50 mg tablet Take 200 mg by mouth at bedtime as needed. Active QUEtiapine Fumar ate 100 MG Oral Tablet Quantity: 0 Refills: 0 Ordered: 06-Jan-2023 DO Active QUEtiapine Fumar ate 100 MG Oral Tablet Quantity: 0 Refills: 0 Ordered: 30-Dec-2022 DO Active QUEtiapine Fumar ate 100 MG Oral Tablet Quantity: 0 Refills: 0 Ordered: 23-Dec-2022 DO Active Comment on above: Take 1 tablet by mauro th daily at bedtime. Take 300 mg by mouth daily at bedtime. risperiDONE 1 mg oral tablet (20 sources) Atypical Antipsychotic Start: 06-06-20 19 take 1 tablet by mouth twice daily risperiDONE 1 MG Oral Tablet Take 1 tablet twice daily Quantity: 180 Refills: 0 Adriana Mccallum Start : 06-Jun-2019 Active 5000 mg testosterone 0.01 mg/mg topical gel (5 sources) Androgen Start: 07-09-20 End: 12-29-19 24 testosterone (ANDROGEL) 50 mg / 5 g (1%) Apply 1 Packet as directed once daily. 0 07/09/2023 12/29/2023 Discontinued Comment on above: Apply 1 Packet as di rected once daily. Problems Active Problems Problem Classification Problem Date Documented Da te Episodic/Chronic Abdominal pain (1 source) Indigestion; Translations: [Epigastric pain] 12-29-2023 Episodic Anxiety disorders (20 sources) Posttraumatic stress disorder; Translations: [Generalized anxiety disorder] Onset: 6 09-16-2019 Chronic Attention-deficit conduct and disruptive behavior disorders (20 sources) Attention deficit hyperactivity disorder; Translations: [Attention deficit disorder with hyperactivity] Onset: 6 01-28-2018 Chronic Attention-deficit, conduct, and disruptive behavior disorders (20 sources) Attention deficit hyperactivity disorder, predominantly hyperactive impulsive type; Translations: [Attention deficit disorder with hyperactivity] Chronic Attention-deficit, conduct, and disruptive behavior disorders (2 sources) Attention-deficit hyperactivity disorder, predominantly hyperactive type; Translations: [Attention-deficit hyperactivity disorder, predominantly hyperactive type] Onset: 3 Chronic Cardiac dysrhythmias (20 sources) Atrial fibrillation; Translations: [Unspecified atrial fibrillation] Onset: 8 09-02-2020 Chronic Diseases of white blood cells (20 sources) Leukocytosis; Translations: [Elevated white blood cell count, unspecified] Onset: 7 09-02-2020 Chronic E Codes: Adverse effects of medical drugs (2 sources) Adverse effect of unspecified drugs, medicaments and biological substances, initial encounter; Translations: [Adverse effect of unspecified drugs, medicaments and biological substances, initial encounter] Onset: 5 Episodic Esophageal disorders (20 sources) Gastroesophageal reflux disease; Translations: [Gastro-esophageal reflux disease without esophagitis] Onset: 3 07-16-2023 Chronic Gastrointestinal hemorrhage (1 source) Gastrointestinal hemorrhage; Translations: [Hemorrhage of anus and rectum] 12-29-2023 Episodic Headache; including migraine (1 source) Migraine, unspecified, not intractable, without status migrainosus; Translations: [Migraine, unspecified, not intractable, without status migrainosus] Onset: 5 Chronic Headache; including migraine (1 source) Vascular headache, not elsewhere classified; Translations: [Vascular headache, not elsewhere classified] Onset: 5 Episodic Headache; including migraine (1 source) Headache; including migraine; Translations: [Headache, unspecified] Onset: 5 Miscellaneous mental health disorders (20 sources) Gender identity disorder of adulthood; Translations: [Transsexualism] Onset: 3 07-16-2023 Chronic Mood disorders (20 sources) Depressive disorder; Translations: [Bipolar affective disorder, current episode mixed] Onset: 8 Resolved: 3 03-01-2018 Chronic Nutritional deficiencies (1 source) Vitamin D deficiency, unspecified; Translations: [Vitamin D deficiency, unspecified] Onset: 5 Chronic Other aftercare (20 sources) Patient encounter status; Translations: [Long-term (current) use of other medications] Episodic Other aftercare (5 sources) Other termite exterminator (current) drug therapy; Translations: [Other termite exterminator (current) drug therapy] Onset: 3 Episodic Other aftercare (2 sources) Encounter for therapeutic drug level monitoring; Translations: [Encounter for therapeutic drug level monitoring] Onset: 5 Episodic Other gastrointestinal disorders (1 source) Irritable bowel syndrome characterized by constipation; Translations: [Irritable bowel syndrome with constipation] 06-21-2024 Chronic Other gastrointestinal disorders (1 source) Constipation, unspecified; Translations: [Constipation, unspecified] Onset: 4 Episodic Other hereditary and degenerative nervous system conditions (2 sources) Other specified extrapyramidal and movement disorders; Translations: [Other specified extrapyramidal and movement disorders] Onset: 5 Chronic Other hereditary and degenerative nervous system conditions (2 sources) Dystonia, unspecified; Translations: [Dystonia, unspecified] Onset: 4 Chronic Other hereditary and degenerative nervous system conditions (2 sources) Other specified forms of tremor; Translations: [Other specified forms of tremor] Onset: 5 Chronic Other hereditary and degenerative nervous system conditions (1 source) Tardive dyskinesia; Translations: [Drug induced subacute dyskinesia] 10-25-2024 Episodic Other injuries and conditions due to external causes (1 source) Angioneurotic edema, initial encounter; Translations: [Angioneurotic edema, initial encounter] Onset: 5 Episodic Other nutritional; endocrine; and metabolic disorders (20 sources) Metabolic syndrome X; Translations: [Dysmetabolic syndrome X] Onset: 3 12-15-2022 Chronic Other screening for suspected conditions (not mental disorders or infectious disease) (1 source) Thyroid hormone tests abnormal; Translations: [Other specified abnormal findings of blood chemistry] 10-25-2024 Episodic Personality disorders (20 sources) Borderline personality disorder; Translations: [Borderline personality disorder] Onset: 8 03-02-2018 Chronic Residual codes; unclassified (20 sources) Self-injurious behavior; Translations: [Other problems related to lifestyle] Episodic Residual codes; unclassified (1 source) Amnesia; Translations: [Other amnesia] Episodic Residual codes; unclassified (20 sources) Hereditary disorder of endocrine system; Translations: [Genetic susceptibility to other disease] 09-02-2020 Episodic Residual codes; unclassified (17 sources) Insomnia; Translations: [Insomnia, unspecified] 10-25-2024 Episodic Residual codes; unclassified (1 source) Hallucinations, unspecified; Translations: [Hallucinations] Onset: Episodic Schizophrenia and other psychotic disorders (5 sources) Schizoaffective disorder; Translations: [Schizoaffective disorder, unspecified] Onset: 5 03-15-2025 Chronic Thyroid disorders (4 sources) Thyrotoxicosis; Translations: [Thyrotoxicosis, unspecified without thyrotoxic crisis or storm] Onset: 4 06-20-2024 Chronic Unclassified (3 sources) Bipolar (qualifier value) 05-12-2015 Past or Other Problems Problem Classification Problem Date Documented Da te Episodic/Chronic Deficiency and other anemia (20 sources) Anemia; Translations: [Anemia, unspecified] Onset: 12-17-2022 12-17-2022 Episodic Diabetes mellitus without complication (20 sources) Prediabetes; Translations: [Prediabetes] Onset: 07-16-2023 07-16-2023 Episodic Nausea and vomiting (4 sources) Nausea; Translations: [Nausea] Onset: 06-21-2024 06-21-2024 Episodic Other circulatory disease (20 sources) H/O: atrial fibrillation; Translations: [Personal history of other diseases of circulatory system] Onset: 12-15-2022 12-15-2022 Episodic Other connective tissue disease (20 sources) Painful legs and moving toes; Translations: [Pain in right leg] Onset: 04-29-2016 04-29-2016 Episodic Other gastrointestinal disorders (20 sources) Constipation; Translations: [Constipation, unspecified] Onset: 12-17-2022 12-17-2022 Episodic Other nervous system disorders (1 source) Tremor, unspecified; Translations: [Tremor, unspecified] Onset: 04-20-2025 Episodic Other non-traumatic joint disorders (20 sources) Joint pain; Translations: [Pain in unspecified joint] Onset: 12-20-2022 12-20-2022 Episodic Other nutritional; endocrine; and metabolic disorders (16 sources) Weight gain; Translations: [Abnormal weight gain] Onset: 12-17-2022 12-17-2022 Episodic Other nutritional; endocrine; and metabolic disorders (13 sources) Weight increased; Translations: [Abnormal weight gain] Onset: 12-17-2022 12-17-2022 Episodic Other nutritional; endocrine; and metabolic disorders (1 source) Abnormal weight loss; Translations: [Abnormal weight loss] Onset: 11-06-2024 Episodic Residual codes; unclassified (1 source) Procedure and treatment not carried out due to patient leaving prior to being seen by health care provider; Translations: [Procedure and treatment not carried out due to patient leaving prior to being seen by health care provider] Onset: 03-20-2025 Episodic Residual codes; unclassified (1 source) Other general symptoms and signs; Translations: [Other general symptoms and signs] Onset: 10-10-2024 Episodic Suicide and intentional self-inflicted injury (20 sources) Suicidal thoughts; Translations: [Suicidal ideations] Onset: 09-13-2019 Resolved: 09-16-2019 09-13-2019 Episodic Unclassified (8 sources) Patient encounter status; Translations: [Encounter for long-term (current) use of medications] Results Test Name Value Interpretation Reference Range Facility Internal Medicine Office Vis yvonne 08-14-2025 Internal Medicine Office Visit [facility] Internal Medicine [address] [place] [address] [place] [address] OFFICE VISIT Date of Service: 08/14/25 MR#: [id number] Acct: [id number] Name: LILY QUIROZ Rep #: [id number] : [id number] Provider: ALLAN escobedo Age/Sex: 35/F Location: [facility] [place] Status: Signed Intake Vital Signs 08/09/25 14:18 08/14/25 09:55 Height 5 ft 8 in 5 ft 8 in Weight: 156 lb 2 oz BMI 23.7 BP 132/76 H Blood Pressure Location Lt brachial Position Sitting Respiration 16 Pulse 73 Pulse Source Monitor Temp 98.6 F Temp Source Temporal Pulse Oximetry (%) 100 Oxygen Delivery Method room air Intake Visit Reasons: [facility] ER FU-HEADACHE, D/C Chief Complaint: headache Manager People Required: No Accompanied by: Self Is patient in pain?: No Allergies aripiprazole (From Abilify) Allergy (Verified 08/14/25 09:48) Rash brexpiprazole (From Rexulti) Allergy (Verified 08/14/25 09:48) Rash haloperidol (From Haldol) Allergy (Verified 08/14/25 09:48) Rash hydromorphone Adverse Reaction (Unknown, Verified 08/14/25 09:48) PT UNSURE OF REACTION ketamine Adverse Reaction (Verified 08/14/25 09:48) Vomiting Medications ???Medication ???Instructions ???Recorded ???Confirmed ???Type aspirin 81 mg tablet,delayed 81 mg PO DAILY 01/31/20 08/14/25 H istory release metoprolol succinate 50 mg 50 mg PO DAILY 01/31/20 08/14/25 H istory tablet,extended release 24 hr pantoprazole 40 mg tablet,delayed 40 mg PO DAILY 04/03/24 08/14/25 History release lamotrigine 100 mg tablet 100 mg PO BID 06/27/24 08/14/25 Hi story lithium carbonate 600 mg capsule 900 mg PO TID 04/20/25 08/14/25 Hi story lisdexamfetamine 40 mg capsule 40 mg PO QDAY 08/14/25 08/14/25 Hi story (Vyvanse) lumateperone 42 mg capsule 42 mg PO QDAY 08/14/25 08/14/25 Hi story (Caplyta) quetiapine 50 mg tablet (Seroquel) 50 mg PO QHS PRN 08/14/25 History sumatriptan succinate 50 mg tablet See Rx Instructions PO .COMPLEX 08/14/25 08/14/25 Rx #10 tabs Nurse's Note: med changes recently caplyta most recent change as of wednesday. c/o migraine for over a week feels pressure in head migraines mostly at night pressure all the time [facility] Medical History (Updated 08/14/25 @ 10:40 by ALLAN Dave) Depression Bipolar disorder Anxiety Hypothyroidism Hyperthyroidism Anemia Epilepsy Migraine Atrial fibrillation GERD (gastroesophageal reflux disease) History of anorexia nervosa ADD (attention deficit disorder) Generalized anxiety disorder Post traumatic stress disorder (PTSD) Bipolar 1 disorder, depressed, severe Surgical History History of mandibular surgery H/O sinus surgery Family History Mother Diabetes Autoimmune disorder lupus Bleeding disorder MTHFR gene Cancer squamous cell skin cancer CVA (cerebral vascular accident) Anxiety Depression Grandmother Breast cancer Diabetes Brother Bowel disease crohn's Rheumatoid arthritis Brother Psoriasis Brother Alcoholism Anxiety Depression Social History household members: family current occupational status: disabled 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 Patient was seen at [facility] 08/09/2025 for headache that had lasted for previous days. Patient states she does have a history of migraine however she has not had a headache that lasted this long previously. In the ER she was given some medications for which she said helped somewhat however she continues to have headache and head pressure. She states she does have nausea and vomiting sensitivity to sound. She has never seen neurology for headache however she states she did see a neurologist for movement disorder. She did have a recent change in medications at the counseling center where they started Caplyta last week. Patient states she has not contacted the counseling center about these headaches that began after she started taking the medication. She did not have any imaging in the ER. She states continued headache today however pain is decreased. It seems to be more intermittent at this time still with nausea that comes and goes and feelings of pressure throughout her h (more content not included)... Normal [facility] Emergency Department Summary on 08-09-2025 Emergency Department Summary [facility] Medical Records Department [address] [place] [address] Emergency Department Summary 08/09/25 MR#: [id number] Acct: [id number] Name: LILY QUIROZ Rep #: [id number] : 1990 35 From: Dylan Lea MD PCP: Dr. Danny Lea MD Status:REG ER Location: ED HPI History of Present Illness Chief Complaint: Headache Detail of Chief Complaint: Unilateral headache that started 4 days ago Informant: patient Onset/Context/Timing Onset: Days Context: Gradual and Onset Timing: Continuous Quality -Headache: Positive for Similar Prior Headaches (With the exception that is lasted for 4 days.) Location: Left side of her head Current Severity: Moderate Maximum Severity: Moderate Worsened by: Nothing specific Relieved by: Nothing Associated Symptoms/Injury Associated Symptoms: Positive for Nausea; Negative for Fever, Vomiting, Sore Throat, Sinus Pressure, Numbness, Tingling, Preceding Aura, Visual Changes, Blurred Vision, Photophobia or Visual Loss Injury - HERNANDEZ: Negative for Direct Trauma Narrative Narrative: Patient is a 35-year-old female. There is a strong family history of migraine headaches. She has never had a "formal diagnosis of migraines. She denies fever, chills night sweats. She denies photophobia or sonophobia. She does endorse ringing or ears. She denies upper respiratory tract infectious symptoms. She does endorse nausea without abdominal pain, vomiting or diarrhea. She denies urologic symptoms. Her last menses was 2 weeks ago. She does not use any form of control because she claims she is not sexually active. She does have history of bipolar affective disorder, migraine headaches, GERD. She denies paresthesia, anesthesia or motor aches. She claims she has problems with her balance. There is no history of trauma. She is unable to tell me if her headaches are predominantly on the left side. She is taking ljew-drh-qqpzocc medication which normally aborts the headache. This 1 has been continuous since onset on Wednesday, August 06. Prior similar symptoms: No Recent Illness/Hospitalization : No PFSH PFSH Medical History Depression Bipolar disorder Anxiety Hypothyroidism Hyperthyroidism Anemia Epilepsy Migraine Atrial fibrillation GERD (gastroesophageal reflux disease) History of anorexia nervosa ADD (attention deficit disorder) Generalized anxiety disorder Post traumatic stress disorder (PTSD) Bipolar 1 disorder, depressed, severe Home Medications ???Medication ???Instructions ???Recorded ???Last Taken ???Type aspirin 81 mg tablet,delayed 81 mg PO DAILY 01/31/20 06/27/24 H istory release metoprolol succinate 50 mg 50 mg PO DAILY 01/31/20 06/27/24 H istory tablet,extended release 24 hr pantoprazole 40 mg tablet,delayed 40 mg PO DAILY 04/03/24 06/27/24 History release dextroamphetamine-amphe tamine ER 30 mg PO DAILY 05/25/24 06/27/24 H istory 30 mg 24hr capsule,extend release lamotrigine 100 mg tablet 100 mg PO BID 06/27/24 06/27/24 Hi story hydroxyzine HCl 25 mg tablet 25 mg PO TID PRN 04/20/25 Unknown History lithium carbonate 600 mg capsule 900 mg PO TID 04/20/25 Unknown His tory lurasidone 40 mg tablet (Latuda) 40 mg PO BID 04/20/25 Unknown Hist ory Allergy/AdvReac Type Severity Reaction Status Date / Time aripiprazole (From Abilify) Allergy Rash Verified 08/09/25 14:17 brexpiprazole (From Rexulti) Allergy Rash Verified 08/09/25 14:17 haloperidol (From Haldol) Allergy Rash Verified 08/09/25 14:17 hydromorphone AdvReac Unknown PT UNSURE Verified 08/09/25 14:17 OF REACTION ketamine AdvReac Vomiting Verified 08/09/25 14:17 Family History Mother Diabetes Autoimmune disorder lupus Bleeding disorder MTHFR gene Cancer squamous cell skin cancer CVA (cerebral vascular accident) Anxiety Depression Grandmother Breast cancer Diabetes Brother Bowel disease crohn's Rheumatoid arthritis Brother Psoriasis Brother Alcoholism Anxiety Depression Surgical History History of mandibular surgery H/O sinus surgery Social History household members: family current occupational status: disabled 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 She has n (more content not included)... Normal [facility] 12 Lead EKGon 07-20-2025 12 Lead EKG [facility] Cardiovascular Services [address] [place] [address] 12 Lead EKG 07/20/25 0750 MR#: [id number] Acct: [id number] Name: LILY QUIROZ Rep #: [id number] : 1990 35 From: Breana Hallman MD Attending Dr: HONG VANCE Status: REG CLI Ordering Dr: HONG VANCE Date: 07/20/25 Location: PSN Sex: F C Admitted: Test Reason : LTDT, FATIGUE Blood Pressure : */* mmHG Vent. Rate : 64 BPM Atrial Rate : 64 BPM P-R Int : 178 ms QRS Dur : 84 ms QT Int : 410 ms P-R-T Axes : 60 78 66 degrees QTcB Int : 422 ms Normal sinus rhythm Normal ECG When compared with ECG of 27-Jun-2024 14:45, ST elevation now present in Inferior leads Non-specific change in ST segment in Anterior leads T wave inversion no longer evident in Inferior leads T wave inversion no longer evident in Anterior leads Confirmed by SELENA GREENWOOD, LATHA ([id number]), editor in chief newspaper MARGY ARORA ([id number]) on 07/23/2025 8:40:53 AM Referred By: HONG VANCE Confirmed By: LATHA HALLMAN MD 07/23/25 0840 Date Breana Hallman MD CC: Dr. Danny Lea MD; HONG VANCE Signed [facility] Basic Metabolic Profile (BMP )on 07-20-2025 BUN/CRE 6.3 RATIO Low 10-20 [facility] Comment on above: Performed By: #### L 500.2500, L501.9060, L501.9520 ####[facility] [address] [place], [address] Calcium [Mass/Vol] 9.8 mg/dL Normal 7.6-11.0 [facility] Comment on above: Performed By: #### L 500.2500, L501.9060, L501.9520 ####[facility] [address] [place], [address] Chloride [Moles/Vol] 105 mmol/L Normal 98-108 [facility] Comment on above: Performed By: #### L 500.2500, L501.9060, L501.9520 ####[facility] [address] [place], [address] CO2 [Moles/Vol] 23.5 mmol/L Normal 21.0-32.0 [facility] Comment on above: Performed By: #### L 500.2500, L501.9060, L501.9520 ####[facility] [address] [place], [address] Creatinine [Mass/Vol] 0.96 mg/dL Normal 0.70-1.20 [facility] Comment on above: Performed By: #### L 500.2500, L501.9060, L501.9520 ####[facility] [address] [place], [address] GAP 9 Normal 5-15 [facility] Comment on above: Performed By: #### L 500.2500, L501.9060, L501.9520 ####[facility] [address] [place], [address] GFR/1.73 sq M.predicted among non-blacks MDRD (S/P/Bld) [Vol rate/Area] 78 mL/min/{1.73_m2} Normal >60 [facility] Comment on above: Result Comment: mL/m in/1.73m2 CKD-EPI Creatinine Equation (2020) Performed By: #### L 500.2500, L501.9060, L501.9520 ####[facility] [address] [place], [address] Glucose [Mass/Vol] 103 mg/dL High 70-99 [facility] Comment on above: Performed By: #### L 500.2500, L501.9060, L501.9520 ####[facility] [address] [place], [address] Potassium [Moles/Vol] 4.4 mmol/L Normal 3.3-5.1 [facility] Comment on above: Performed By: #### L 500.2500, L501.9060, L501.9520 ####[facility] [address] [place], [address] Sodium [Moles/Vol] 137 mmol/L Normal 133-145 [facility] Comment on above: Performed By: #### L 500.2500, L501.9060, L501.9520 ####[facility] [address] [place], [address] Urea nitrogen [Mass/Vol] 6 mg/dL Normal 4-19 [facility] Comment on above: Performed By: #### L 500.2500, L501.9060, L501.9520 ####[facility] [address] [place], [address] Lithiumon 07-20-2025 LI 0.91 mmol/L Normal 0.60-1.20 [facility] Comment on above: Order Comment: [id number] Performed By: #### L 500.2500, L501.9060, L501.9520 ####[facility] [address] [place], [address] Thyroid Stim Hormone (TSH)on 07-20-2025 TSH 2.000 uIU/mL Normal 0.300-4.200 [facility] Comment on above: Performed By: #### L 500.2500, L501.9060, L501.9520 ####[facility] [address] [place], [address] JASON w/ Reflex Mult Confirmon 04-23-2025 ANTI-DNA (DS)AB TNP Normal [facility] Comment on above: Performed By: #### L 506.1001, L101.9900, L501.5200, L501.9520, L100.0100, L500.4050, L503.0106, L3100.5450 #### [facility] [address] [place], [place], [id number] ANTI-SS-A TNP Normal [facility] Comment on above: Performed By: #### L 506.1001, L101.9900, L501.5200, L501.9520, L100.0100, L500.4050, L503.0106, L3100.5450 #### [facility] [address] [place], [address] ANTI-SS-B TNP Normal [facility] Comment on above: Performed By: #### L 506.1001, L101.9900, L501.5200, L501.9520, L100.0100, L500.4050, L503.0106, L3100.5450 #### [facility] [address] [place], [address] CBC W/Diff, Automatedon 06-0 Absolute Lymph 3.40 X10 3/uL Normal 0.83-4.51 [facility] Comment on above: Performed By: #### L 506.1001, L101.9900, L501.5200, L501.9520, L100.0100, L500.4050, L503.0106, L3100.5450 #### [facility] [address] [place], [address] Absolute Neut 5.8 X10 3/uL Normal 2.0-7.7 [facility] Comment on above: Performed By: #### L 506.1001, L101.9900, L501.5200, L501.9520, L100.0100, L500.4050, L503.0106, L3100.5450 #### [facility] [address] [place], [address] Basophils/100 WBC (Bld) 0.6 % Normal 0-1 [facility] Comment on above: Performed By: #### L 506.1001, L101.9900, L501.5200, L501.9520, L100.0100, L500.4050, L503.0106, L3100.5450 #### [facility] [address] [place], [address] Eosinophils/100 WBC (Bld) 5.0 % Normal 0-5 [facility] Comment on above: Performed By: #### L 506.1001, L101.9900, L501.5200, L501.9520, L100.0100, L500.4050, L503.0106, L3100.5450 #### [facility] [address] [place], [address] Erythrocyte distribution width (RBC) [Ratio] 13.1 % Normal 11.6-14.6 [facility] Comment on above: Performed By: #### L 506.1001, L101.9900, L501.5200, L501.9520, L100.0100, L500.4050, L503.0106, L3100.5450 #### [facility] [address] [place], [address] Hematocrit (Bld) [Volume fraction] 39.7 % Normal 37-47 [facility] Comment on above: Performed By: #### L 506.1001, L101.9900, L501.5200, L501.9520, L100.0100, L500.4050, L503.0106, L3100.5450 #### [facility] [address] [place], [address] Hemoglobin (Bld) [Mass/Vol] 13.6 g/dL Normal 12.0-15.0 [facility] Comment on above: Performed By: #### L 506.1001, L101.9900, L501.5200, L501.9520, L100.0100, L500.4050, L503.0106, L3100.5450 #### [facility] [address] [place], [address] IG% 0.500 Normal 0.0-0.9 [facility] Comment on above: Result Comment: IG% - Immature Granulocytes (promyelocytes, myelocytes and metamyelocytes) > 1% indicates that a LEFT SHIFT is Present. Performed By: #### L 506.1001, L101.9900, L501.5200, L501.9520, L100.0100, L500.4050, L503.0106, L3100.5450 #### [facility] [address] [place], [address] Lymphocytes/100 WBC (Bld) 32.1 % Normal 19-41 [facility] Comment on above: Performed By: #### L 506.1001, L101.9900, L501.5200, L501.9520, L100.0100, L500.4050, L503.0106, L3100.5450 #### [facility] [address] [place], [address] MCH (RBC) [Entitic mass] 30.8 pg Normal 27.0-32.0 [facility] Comment on above: Performed By: #### L 506.1001, L101.9900, L501.5200, L501.9520, L100.0100, L500.4050, L503.0106, L3100.5450 #### [facility] [address] [place], [address] MCHC (RBC) [Mass/Vol] 34.3 g/dL Normal 32-36 [facility] Comment on above: Performed By: #### L 506.1001, L101.9900, L501.5200, L501.9520, L100.0100, L500.4050, L503.0106, L3100.5450 #### [facility] [address] [place], [address] MCV (RBC) [Entitic vol] 89.8 fL Normal 81-99 [facility] Comment on above: Performed By: #### L 506.1001, L101.9900, L501.5200, L501.9520, L100.0100, L500.4050, L503.0106, L3100.5450 #### [facility] [address] [place], [address] Monocytes/100 WBC (Bld) 7.6 % Normal 0-10 [facility] Comment on above: Performed By: #### L 506.1001, L101.9900, L501.5200, L501.9520, L100.0100, L500.4050, L503.0106, L3100.5450 #### [facility] [address] [place], [address] Neutrophils/100 WBC (Bld) 54.2 % Normal 47-70 [facility] Comment on above: Performed By: #### L 506.1001, L101.9900, L501.5200, L501.9520, L100.0100, L500.4050, L503.0106, L3100.5450 #### [facility] [address] [place], [address] Nucleated RBC (Bld) [#/Vol] 0 10*3/uL Normal 0-5 [facility] Comment on above: Performed By: #### L 506.1001, L101.9900, L501.5200, L501.9520, L100.0100, L500.4050, L503.0106, L3100.5450 #### [facility] [address] [place], [address] Platelet mean volume (Bld) [Entitic vol] 10.6 fL Normal 6.2-12.0 [facility] Comment on above: Performed By: #### L 506.1001, L101.9900, L501.5200, L501.9520, L100.0100, L500.4050, L503.0106, L3100.5450 #### [facility] [address] [place], [address] Platelets (Bld) [#/Vol] 298 10*3/uL Normal 150-450 [facility] Comment on above: Performed By: #### L 506.1001, L101.9900, L501.5200, L501.9520, L100.0100, L500.4050, L503.0106, L3100.5450 #### [facility] [address] [place], [address] RBC (Bld) [#/Vol] 4.42 10*6/uL Normal 4.2-5.4 [facility] Comment on above: Performed By: #### L 506.1001, L101.9900, L501.5200, L501.9520, L100.0100, L500.4050, L503.0106, L3100.5450 #### [facility] [address] [place], [address] RDW SD 43.2 fl Normal 35.1-43.9 [facility] Comment on above: Performed By: #### L 506.1001, L101.9900, L501.5200, L501.9520, L100.0100, L500.4050, L503.0106, L3100.5450 #### [facility] [address] [place], [address] WBC (Bld) [#/Vol] 10.6 10*3/uL Normal 4.4-11.0 [facility] Comment on above: Performed By: #### L 506.1001, L101.9900, L501.5200, L501.9520, L100.0100, L500.4050, L503.0106, L3100.5450 #### [facility] [address] [place], [address] CRPon 04-20-2025 C-REACTIVE PROT < 3.00 Normal 0.0-3.0 [facility] Comment on above: Performed By: #### L 101.9900, L501.6710 ####[facility] [address] [place], [address] Comprehensive Metabolic Prof ilon 04-20-2025 Albumin [Mass/Vol] 4.7 g/dL Normal 3.5-5.0 [facility] Comment on above: Performed By: #### L 506.1001, L101.9900, L501.5200, L501.9520, L100.0100, L500.4050, L503.0106, L3100.5450 #### [facility] [address] [place], [address] Albumin/Globulin [Mass ratio] 1.9 {ratio} Normal 0.9-2.4 [facility] Comment on above: Performed By: #### L 506.1001, L101.9900, L501.5200, L501.9520, L100.0100, L500.4050, L503.0106, L3100.5450 #### [facility] [address] [place], [address] ALK PHOS 64 U/L Normal 35-104 [facility] Comment on above: Performed By: #### L 506.1001, L101.9900, L501.5200, L501.9520, L100.0100, L500.4050, L503.0106, L3100.5450 #### [facility] [address] [place], [address] ALT [Catalytic activity/Vol] 9 U/L Normal <=34 [facility] Comment on above: Performed By: #### L 506.1001, L101.9900, L501.5200, L501.9520, L100.0100, L500.4050, L503.0106, L3100.5450 #### [facility] [address] [place], [address] AST [Catalytic activity/Vol] 13 U/L Normal <=31 [facility] Comment on above: Performed By: #### L 506.1001, L101.9900, L501.5200, L501.9520, L100.0100, L500.4050, L503.0106, L3100.5450 #### [facility] [address] [place], [address] Bilirubin [Mass/Vol] 0.60 mg/dL Normal 0.00-1.30 [facility] Comment on above: Performed By: #### L 506.1001, L101.9900, L501.5200, L501.9520, L100.0100, L500.4050, L503.0106, L3100.5450 #### [facility] [address] [place], [address] BUN/CRE 10.8 RATIO Normal 10-20 [facility] Comment on above: Performed By: #### L 506.1001, L101.9900, L501.5200, L501.9520, L100.0100, L500.4050, L503.0106, L3100.5450 #### [facility] [address] [place], [address] Calcium [Mass/Vol] 10.0 mg/dL Normal 7.6-11.0 [facility] Comment on above: Performed By: #### L 506.1001, L101.9900, L501.5200, L501.9520, L100.0100, L500.4050, L503.0106, L3100.5450 #### [facility] [address] [place], [address] Chloride [Moles/Vol] 104 mmol/L Normal 98-108 [facility] Comment on above: Performed By: #### L 506.1001, L101.9900, L501.5200, L501.9520, L100.0100, L500.4050, L503.0106, L3100.5450 #### [facility] [address] [place], [address] CO2 [Moles/Vol] 21.9 mmol/L Normal 21.0-32.0 [facility] Comment on above: Performed By: #### L 506.1001, L101.9900, L501.5200, L501.9520, L100.0100, L500.4050, L503.0106, L3100.5450 #### [facility] [address] [place], [address] Creatinine [Mass/Vol] 1.15 mg/dL Normal 0.70-1.20 [facility] Comment on above: Performed By: #### L 506.1001, L101.9900, L501.5200, L501.9520, L100.0100, L500.4050, L503.0106, L3100.5450 #### [facility] [address] [place], [address] GAP 11 Normal 5-15 [facility] Comment on above: Performed By: #### L 506.1001, L101.9900, L501.5200, L501.9520, L100.0100, L500.4050, L503.0106, L3100.5450 #### [facility] [address] [place], [address] GFR/1.73 sq M.predicted among non-blacks MDRD (S/P/Bld) [Vol rate/Area] 63 mL/min/{1.73_m2} Normal >60 [facility] Comment on above: Result Comment: mL/m in/1.73m2 CKD-EPI Creatinine Equation (2020) Performed By: #### L 506.1001, L101.9900, L501.5200, L501.9520, L100.0100, L500.4050, L503.0106, L3100.5450 #### [facility] [address] [place], [address] Globulin (S) [Mass/Vol] 2.5 g/dL Normal 2.2-4.2 [facility] Comment on above: Performed By: #### L 506.1001, L101.9900, L501.5200, L501.9520, L100.0100, L500.4050, L503.0106, L3100.5450 #### [facility] [address] [place], [address] Glucose [Mass/Vol] 97 mg/dL Normal 70-99 [facility] Comment on above: Performed By: #### L 506.1001, L101.9900, L501.5200, L501.9520, L100.0100, L500.4050, L503.0106, L3100.5450 #### [facility] [address] [place], [address] Potassium [Moles/Vol] 4.4 mmol/L Normal 3.3-5.1 [facility] Comment on above: Performed By: #### L 506.1001, L101.9900, L501.5200, L501.9520, L100.0100, L500.4050, L503.0106, L3100.5450 #### [facility] [address] [place], [address] Sodium [Moles/Vol] 137 mmol/L Normal 133-145 [facility] Comment on above: Performed By: #### L 506.1001, L101.9900, L501.5200, L501.9520, L100.0100, L500.4050, L503.0106, L3100.5450 #### [facility] [address] [place], [place], [id number] [phone] T PROT 7.2 g/dL Normal 5.9-8.4 [facility] Comment on above: Performed By: #### L 506.1001, L101.9900, L501.5200, L501.9520, L100.0100, L500.4050, L503.0106, L3100.5450 #### [facility] [address] [place], [place], [address] [phone] Urea nitrogen [Mass/Vol] 12 mg/dL Normal 4-19 [facility] Comment on above: Performed By: #### L 506.1001, L101.9900, L501.5200, L501.9520, L100.0100, L500.4050, L503.0106, L3100.5450 #### [facility] [address] [place], [address] Erythrocyte Sed Rateon 04-20 -2024 SED RATE < 1 Normal 0-30 [facility] Comment on above: Performed By: #### L 506.1001, L101.9900, L501.5200, L501.9520, L100.0100, L500.4050, L503.0106, L3100.5450 #### [facility] [address] [place], [address] SED RATE Normal 0-30 [facility] Comment on above: Result Comment: DUPL ICATE Performed By: #### L 101.9900, L501.6710 ####[facility] [address] [place], [address] Internal Medicine Office Vis iton 04-20-2025 Internal Medicine Office Visit [facility] [address] [place] [address] [place] [address] OFFICE VISIT Date of Service: 04/20/25 MR#: [id number] Acct: [id number] Name: LILY QUIROZ Rep #: [id number] : 1990 Provider: CARLOTA Tidwell Age/Sex: 35/F Location: [facility] Status: Signed Intake Vital Signs 03/13/25 18:07 04/20/25 07:37 Height 5 ft 8 in 5 ft 8 in Weight: 154 lb 8 oz BMI 23.5 BP 118/68 Blood Pressure Location Rt brachial Position Sitting Respiration 16 Pulse 79 Pulse Source Monitor Temp 97.4 F L Temp Source Temporal Pulse Oximetry (%) 98 Oxygen Delivery Method room air Intake Visit Reasons: SHAKING Chief Complaint: shaking Manager People Required: No Accompanied by: Self Is patient in pain?: No Allergies aripiprazole (From Abilify) Allergy (Verified 04/20/25 07:25) Rash brexpiprazole (From Rexulti) Allergy (Verified 04/20/25 07:25) Rash haloperidol (From Haldol) Allergy (Verified 04/20/25 07:25) Rash hydromorphone Adverse Reaction (Unknown, Verified 04/20/25 07:25) PT UNSURE OF REACTION ketamine Adverse Reaction (Verified 04/20/25 07:25) Vomiting Medications ???Medication ???Instructions ???Recorded ???Confirmed ???Type aspirin 81 mg tablet,delayed 81 mg PO DAILY 01/31/20 04/20/25 H istory release metoprolol succinate 50 mg 50 mg PO DAILY 01/31/20 04/20/25 H istory tablet,extended release 24 hr pantoprazole 40 mg tablet,delayed 40 mg PO DAILY 04/03/24 04/20/25 History release dextroamphetamine-amphe tamine ER 30 mg PO DAILY 05/25/24 04/20/25 H istory 30 mg 24hr capsule,extend release lamotrigine 100 mg tablet 100 mg PO BID 06/27/24 04/20/25 Hi story hydroxyzine HCl 25 mg tablet 25 mg PO TID PRN 04/20/25 04/20/25 History lithium carbonate 600 mg capsule 900 mg PO TID 04/20/25 04/20/25 Hi story lurasidone 40 mg tablet (Latuda) 40 mg PO BID 04/20/25 04/20/25 His tory Have you fallen in the past year?: No Nurse's Note: started with shaking in hands feeling it all over but has been progressively worse the last few days [facility] Medical History Depression Bipolar disorder Anxiety Hypothyroidism Hyperthyroidism Anemia Epilepsy Migraine Atrial fibrillation GERD (gastroesophageal reflux disease) History of anorexia nervosa ADD (attention deficit disorder) Generalized anxiety disorder Post traumatic stress disorder (PTSD) Bipolar 1 disorder, depressed, severe Surgical History History of mandibular surgery H/O sinus surgery Family History Mother Diabetes Autoimmune disorder lupus Bleeding disorder MTHFR gene Cancer squamous cell skin cancer CVA (cerebral vascular accident) Anxiety Depression Grandmother Breast cancer Diabetes Brother Bowel disease crohn's Rheumatoid arthritis Brother Psoriasis Brother Alcoholism Anxiety Depression Social History household members: family current occupational status: disabled 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 Patient states that the tremors have been occurring for around the past 4 days. She states that these are pretty much the hands and the arms without any lower extremity or facial involvement. She noted that this was worse when she was trying to do something more pointed / specific (trying to do fine motor skill). Patient sees a psychiatrist monthly for chronic mental health check-up. She has not had any recent changes in her medications. She has not had any recent dose adjustments or new medications introduced. Patient was diagnosed with Psychosis last fall and thus has been placed on the lithium, Latuda, and lamotrigine. ROS Const Constitutional: No body ache, excessive sweating, fatigue, fever(s), frequent falls, headache(s), snoring, weakness, weight change, sleep problems or change in appetite Eyes Eyes: No blurry vision, change in vision, eye pain or Light sensitivity ENT ENT: No abnormal hearing, ear or mastoid pain, tinnitus, nasal congestion, headache(s), neck pain or sore throat Resp Respiratory: No cough, shortness of breath, snoring or wheezing Cardio Cardiology: No chest pain at rest, chest pain with exertion, excessive sweating, shortness of veda (more content not included)... Normal [facility] Magnesiumon 04-20-2025 Magnesium [Mass/Vol] 2.5 mg/dL High 1.5-2.2 [facility] Comment on above: Performed By: #### L 506.1001, L101.9900, L501.5200, L501.9520, L100.0100, L500.4050, L503.0106, L3100.5450 #### [facility] [address] [place], [place], [id number] Thyroid Stim Hormone (TSH)on 04-20-2025 TSH 3.040 uIU/mL Normal 0.300-4.200 [facility] Comment on above: Performed By: #### L 506.1001, L101.9900, L501.5200, L501.9520, L100.0100, L500.4050, L503.0106, L3100.5450 #### [facility] [address] [place], [address] Vitamin B12on 04-20-2025 Cobalamin (Vitamin B12) [Mass/Vol] 565 pg/mL Normal 180-914 [facility] Comment on above: Performed By: #### L 506.1001, L101.9900, L501.5200, L501.9520, L100.0100, L500.4050, L503.0106, L3100.5450 #### [facility] [address] [place], [address] Vitamin D,25 Hydroxyon 04-20 Vitamin D 25-OH 20.3 ng/mL Low 30-100 [facility] Comment on above: Result Comment: Lily min D Status Deficiency: <20 ng/mL (50nmol/L) Insufficiency: 20-30 ng/mL (50-75 nmol/L) Sufficiency: 30-100 ng/mL (75-250 nmol/L) Toxicity: >100 ng/mL (>250 nmol/L) Performed By: #### L 506.1001, L101.9900, L501.5200, L501.9520, L100.0100, L500.4050, L503.0106, L3100.5450 ####[facility] [address] [place], [address] ED NOTEon 03-16-2025 ED NOTE HNO ID: [id number] Author: LIZZIE DE CT Service: ? Author Type: Clinical Yarn Texturing Machine Operator Type: ED Notes Filed: 03/16/2025 02:04 Note Text: Pt resting in bed with no complaints at this time. Lights are off and bed is in lowest position. No acute distress is noted. Safety maintained. [facility] ED NOTE HNO ID: [id number] Author: JOHN OROZCO RN Service: ? Author Type: Registered Nurse Type: ED Notes Filed: 03/16/2025 08:32 Note Text: Patient transported to [facility]. All vitals are stable upon departure and all belongings are with patient. [facility] ED NOTE HNO ID: [id number] Author: JOHN OROZCO RN Service: ? Author Type: Registered Nurse Type: ED Notes Filed: 03/16/2025 08:26 Note Text: [facility] at bedside for patient report. [facility] ED NOTE HNO ID: [id number] Author: JOHN OROZCO RN Service: ? Author Type: Registered Nurse Type: ED Notes Filed: 03/16/2025 08:03 Note Text: Report called to MARITZA Espana at [facility]. [facility] ED NOTE HNO ID: [id number] Author: JOHN OROZCO RN Service: ? Author Type: Registered Nurse Type: ED Notes Filed: 03/16/2025 08:00 Note Text: Pt resting in bed with no complaints at this time. Comfort measures offered. No acute distress noted, safety maintained. [facility] ED NOTE HNO ID: [id number] Author: JOHN OROZCO RN Service: ? Author Type: Registered Nurse Type: ED Notes Filed: 03/16/2025 07:57 Note Text: Attempted to call [facility] x1. [facility] ED NOTE HNO ID: [id number] Author: DEEPAK PAREDES, CT Service: ? Author Type: Clinical Yarn Texturing Machine Operator Type: ED Notes Filed: 03/16/2025 07:52 Note Text: Pt provided with breakfast tray. [facility] ED NOTE HNO ID: [id number] Author: JOHN OROZCO RN Service: ? Author Type: Registered Nurse Type: ED Notes Filed: 03/16/2025 07:53 Note Text: [facility] ETA: 0900. [facility] ED NOTE HNO ID: [id number] Author: JOHN OROZCO RN Service: ? Author Type: Registered Nurse Type: ED Notes Filed: 03/16/2025 07:30 Note Text: Pt resting in bed with no complaints at this time. Comfort measures offered. No acute distress noted, safety maintained. [facility] ED NOTE HNO ID: [id number] Author: YADIEL CRESPO RN Service: ? Author Type: Registered Nurse Type: ED Notes Filed: 03/16/2025 07:12 Note Text: Report given to oncoming RN, all questions answered and addressed. Pt resting in room comfortably. Safety maintained with bed in low and locked position. Comfort measures offered, no current complaints. [facility] ED NOTE HNO ID: [id number] Author: JOHN OROZCO, RN Service: ? Author Type: Registered Nurse Type: ED Notes Filed: 03/16/2025 07:06 Note Text: Assumed care and received verbal report from previous RN. Patient is resting in bed comfortably and in no acute distress. Call light within reach, bed in lowest position, side rails up x2, safety maintained. I have reviewed and agree with previous RN's assessment. [facility] ED NOTE HNO ID: [id number] Author: LIZZIE DE CT Service: ? Author Type: Clinical Yarn Texturing Machine Operator Type: ED Notes Filed: 03/16/2025 06:08 Note Text: Pt comfortable resting in bed. Safety maintained. No needs at this time. Will continue to monitor. [facility] ED NOTE HNO ID: [id number] Author: LIZZIE DE CT Service: ? Author Type: Clinical Yarn Texturing Machine Operator Type: ED Notes Filed: 03/16/2025 05:37 Note Text: Pt comfortable resting in bed. Safety maintained. No needs at this time. Will continue to monitor. [facility] ED NOTE HNO ID: [id number] Author: LIZZIE DE CT Service: ? Author Type: Clinical Yarn Texturing Machine Operator Type: ED Notes Filed: 03/16/2025 05:04 Note Text: Pt resting in bed with no complaints at this time. Comfort measures offered. No acute distress noted. Safety maintained. [facility] ED NOTE HNO ID: [id number] Author: LIZZIE DE CT Service: ? Author Type: Clinical Yarn Texturing Machine Operator Type: ED Notes Filed: 03/16/2025 04:45 Note Text: Pt comfortable resting in bed. Safety maintained. No needs at this time. Will continue to monitor. [facility] ED NOTE HNO ID: [id number] Author: YADIEL CRESPO, MARITZA Service: ? Author Type: Registered Nurse Type: ED Notes Filed: 03/16/2025 04:09 Note Text: This technical document writer spoke to pt at this time and attempted to inform him of transfer to [facility]. PT stating he would not like to go to [facility]. PT increasingly agitated by the idea of this. This technical document writer made intake and LIP aware of pts request at this time. Intake states she will try to see if other options have availability. [facility] ED NOTE HNO ID: [id number] Author: MIKAYLA LAGUNA Medic Service: ? Author Type: Dispute Resolution Specialist and Yarn Texturing Machine Operator Type: ED Notes Filed: 03/16/2025 04:04 Note Text: Pt is resting in bed with no complaints at this time. Lights are off and bed is lowered in lowest position. Equal chest rise and fall is observed. No acute distress is noted, safety maintained. [facility] ED NOTE HNO ID: [id number] Author: MIKAYLA LAGUNA Medic Service: ? Author Type: Dispute Resolution Specialist and Yarn Texturing Machine Operator Type: ED Notes Filed: 03/16/2025 03:47 Note Text: Pt is resting in bed with no complaints at this time. Lights are off and bed is lowered in lowest position. Equal chest rise and fall is observed. No acute distress is noted, safety maintained. [facility] ED NOTE HNO ID: [id number] Author: LIZZIE DE, CT Service: ? Author Type: Clinical Yarn Texturing Machine Operator Type: ED Notes Filed: 03/16/2025 03:16 Note Text: Pt resting in bed with no complaints at this time. Lights are off and bed is in lowest position. No acute distress is noted. Safety maintained. [facility] ED NOTE HNO ID: [id number] Author: LIZZIE DE, CT Service: ? Author Type: Clinical Yarn Texturing Machine Operator Type: ED Notes Filed: 03/16/2025 03:16 Note Text: Pt resting in bed with no complaints at this time. Comfort measures offered. No acute distress noted. Safety maintained. [facility] ED NOTE HNO ID: [id number] Author: LIZZIE DE, CT Service: ? Author Type: Clinical Yarn Texturing Machine Operator Type: ED Notes Filed: 03/16/2025 01:00 Note Text: Pt resting in bed with no complaints at this time. Lights are off and bed is in lowest position. No acute distress is noted. Safety maintained. [facility] ED NOTE HNO ID: [id number] Author: LIZZIE DE CT Service: ? Author Type: Clinical Yarn Texturing Machine Operator Type: ED Notes Filed: 03/16/2025 01:00 Note Text: Pt resting in bed with no complaints at this time. Comfort measures offered. No acute distress noted. Safety maintained. [facility] ED NOTE HNO ID: [id number] Author: LIZZIE DE CT Service: ? Author Type: Clinical Yarn Texturing Machine Operator Type: ED Notes Filed: 03/16/2025 01:00 Note Text: Pt resting in bed with no complaints at this time. Comfort measures offered. No acute distress noted. Safety maintained. [facility] ED PROGRESS NOTE (PROVIDER)o n 03-16-2025 ED PROGRESS NOTE (PROVIDER) HNO ID: [id number] Author: FELIX INGRAM DO Service: Emergency Medicine Author Type: Physician Type: ED PROGRESS NOTE (PROVIDER) Filed: 03/16/2025 06:57 Note Text: ED CONTINUATION OF CARE NOTE Code Status: Prior Assumed care from: Dr. Govea Presentation / Findings / Interventions / Plan / Items to Follow Up: Labs Reviewed COMPLETE BLOOD COUNT - Abnormal; Notable for the following components: Result Value WBC 15.44 (*) Hemoglobin 12.6 (*) Hematocrit 38.5 (*) All other components within normal limits COMPREHENSIVE METABOLIC PANEL - Abnormal; Notable for the following components: AST 13 (*) CO2 20 (*) All other components within normal limits TOXICOLOGY SCREEN, ROUTINE URINE - Normal Narrative: Immunoassay screen only. Cross reactivity with other substances can occur with immunoassay screening. Detection of any drug(s) in this urine toxicology panel is presumptive only. These tests are for medical purposes only and should not be used for compliance monitoring, legal, or forensic use. Samples should be within normal physiological conditions (e.g. pH). This assay does not include adulteration/specimen validity testing. In clinical settings, confirmatory testing is at the practitioner's discretion [1]. If clinically indicated, confirmation by high specificity, quantitative methodology, which includes adulteration/specimen validity testing, may be requested on the same specimen through Client Services ([phone]) if contacted within 48 hours of initial testing. [1]Substance Abuse and Mental Health Services Administration (2012). Clinical Drug Testing in Primary Care Technical Assistance Publication Series 32. Department of Health and Human Services, [place], p.10. HCG, QUALITATIVE, URINE - Normal ETHANOL/ALCOHOL - Normal LITHIUM - Normal EXTRA SANTIZO AND URINE Clinical Impressions as of 03/16/25 0657 Psychosis, unspecified psychosis type (HCC) Schizoaffective disorder, bipolar type (HCC) Hallucinations Borderline personality disorder (HCC) Gender dysphoria in adult Results for orders placed or performed during the hospital encounter of 03/15/25 EKG Impression Sinus rhythm Normal ECG No Stemi Confirmed by LAURENT GOVEA MD ([id number]) on 03/15/2025 7:10:14 PM Medical Decision Making Patient is a 35-year-old transgender female to male that presented for psychiatric evaluation. Having worsening auditory and visual hallucinations. Has a history of schizoaffective disorder. Reports compliancy with his medications. Patient worked up and medically cleared by the previous provider. Case had been presented to intake and they were recommending admission. Currently no beds available so had been referred out. Patient has been accepted at [facility]. Patient became upset about this. Did start to become slightly agitated and did receive a dose of oral Ativan. Patient informed because of bed availability potentially this is the only open spot for him. Patient informed that we will see about a referral over to [facility] but if they are unable to accommodate we will see about sending over to [facility]. Patient seemed to have been receptive to this and now has calm down. After referring the patient to like [facility], will be able to accommodate the patient. At this time I will transfer the patient over to [facility] instead of [facility]. Patient continues to be cooperative throughout this morning. Will continue to monitor while waiting for the bed assignment. TRANSFER OF CARE: The patients care was turned over to Dr. Lorenzana at 0800. The care and plan was discussed with the oncoming provider. Items pending that need to be checked : Re-evaluate and Consult. Tentative impression of patient: Schizoaffective disorder bipolar type SIGNATURE: Felix Ingram DO PATIENT NAME: Lily Quiroz DATE: March 16, 2025 TIME: 4:35 AM PAGER/CONTACT #: [facility] CBC panel Auto (Bld)on 03-15 Erythrocyte distribution width (RBC) [Ratio] 13.5 % Normal 11.5-15.0 [facility] Comment on above: Order Comment: Speci men Type: BLOOD SPECIMEN Ordering Facility: [facility] Address: [address] [place] [address] Performed By: #### 5 8410-2 #### [facility] CLIA [id number] [address] [place] [address] [place] Hematocrit (Bld) [Volume fraction] 38.5 % Low 39.0-51.0 [facility] Comment on above: Order Comment: Speci men Type: BLOOD SPECIMEN Ordering Facility: [facility] Address: [address] [place] [address] Performed By: #### 5 8410-2 #### [facility] CLIA [id number] [address] [place] [address] [place] Hemoglobin (Bld) [Mass/Vol] 12.6 g/dL Low 13.0-17.0 [facility] Comment on above: Order Comment: Speci men Type: BLOOD SPECIMEN Ordering Facility: [facility] Address: [address] [place] [address] Performed By: #### 5 8410-2 #### [facility] CLIA [id number] [address] [place] [address] [place] MCH (RBC) [Entitic mass] 29.6 pg Normal 26.0-34.0 [facility] Comment on above: Order Comment: Speci men Type: BLOOD SPECIMEN Ordering Facility: [facility] Address: [address] [place] [address] Performed By: #### 5 8410-2 #### [facility] CLIA [id number] [address] [place] [address] [place] MCHC (RBC) [Mass/Vol] 32.7 g/dL Normal 30.5-36.[address] [facility] Comment on above: Order Comment: Speci men Type: BLOOD SPECIMEN Ordering Facility: [facility] Address: [address] [place] [address] Performed By: #### 5 8410-2 #### [facility] CLIA [id number] [address] [place] [address] [place] MCV (RBC) [Entitic vol] 90.4 fL Normal 80.0-100.0 L [facility] Comment on above: Order Comment: Speci men Type: BLOOD SPECIMEN Ordering Facility: [facility] Address: [address] [place] [address] Performed By: #### 5 8410-2 #### [facility] CLIA [id number] [address] [place] [address] [place] Nucleated RBC (Bld) [#/Vol] 10*3/uL Normal <0.01 [facility] Comment on above: Order Comment: Speci men Type: BLOOD SPECIMEN Ordering Facility: [facility] Address: [address] [place] [address] Performed By: #### 5 8410-2 #### [facility] [place] [id number] [address] [place] [address] [place] Platelet mean volume (Bld) [Entitic vol] 10.4 fL Normal 9.0-12.7 [facility] Comment on above: Order Comment: Speci men Type: BLOOD SPECIMEN Ordering Facility: [facility] Address: [address] [place] [address] Performed By: #### 5 8410-2 #### [facility] [place] [id number] [address] [place] [address] [place] Platelets (Bld) [#/Vol] 254 10*3/uL Normal 150-400 [facility] Comment on above: Order Comment: Speci men Type: BLOOD SPECIMEN Ordering Facility: [facility] Address: [address] [place] [address] Performed By: #### 5 8410-2 #### [facility] CLIA [id number] [address] [place] [address] [place] RBC (Bld) [#/Vol] 4.26 10*6/uL Normal 4.20-6.00 [facility] Comment on above: Order Comment: Speci men Type: BLOOD SPECIMEN Ordering Facility: [facility] Address: [address] [place] [address], [place] [address] Performed By: #### 5 8410-2 #### [facility] CLIA [id number] [address] [place], [place] [id number] [place] WBC (Bld) [#/Vol] 15.44 10*3/uL High 3.70-11.00 [facility] Comment on above: Order Comment: Speci men Type: BLOOD SPECIMEN Ordering Facility: [facility] Address: [address] [place] [address] Performed By: #### 5 8410-2 #### [facility] CLIA [id number] [address] [place], [place] [address] [place] Comprehensive metabolic 2000 panelon 03-15-2025 Albumin [Mass/Vol] 4.4 g/dL Normal 3.9-4.9 [facility] Comment on above: Order Comment: Speci men Type: BLOOD SPECIMEN Ordering Facility: [facility] Address: [address] [place] [address] Performed By: #### 2 4323-8, 5643-2, 69702-7 #### [facility] CLIA [id number] [address] [place] [address] [place] ALP [Catalytic activity/Vol] 61 U/L Normal 38-113 [facility] Comment on above: Order Comment: Speci men Type: BLOOD SPECIMEN Ordering Facility: [facility] Address: [address] [place] [address] Performed By: #### 2 4323-8, 5643-2, 80371-3 #### [facility] CLIA [id number] [address] [place], [place] [id number] [place] ALT [Catalytic activity/Vol] 11 U/L Normal 10-54 [facility] Comment on above: Order Comment: Speci men Type: BLOOD SPECIMEN Ordering Facility: [facility] Address: [address] [place] [address] Performed By: #### 2 4323-8, 5643-2, 09999-3 #### [facility] CLIA [id number] [address] [place], [place] [address] [place] Anion gap [Moles/Vol] 12 mmol/L Normal 8-[address] [facility] Comment on above: Order Comment: Speci men Type: BLOOD SPECIMEN Ordering Facility: [facility] Address: [address] [place] [address] Performed By: #### 2 4323-8, 5643-2, 80538-8 #### [facility] CLIA [id number] [address] [place] [address] [place] AST [Catalytic activity/Vol] 13 U/L Low 14-40 [facility] Comment on above: Order Comment: Speci men Type: BLOOD SPECIMEN Ordering Facility: [facility] Address: [address] [place] [address] Performed By: #### 2 4323-8, 5643-2, 90369-2 #### [facility] CLIA [id number] [address] [place] [address] [place] Bilirubin [Mass/Vol] 0.4 mg/dL Normal 0.2-1.3 [facility] Comment on above: Order Comment: Speci men Type: BLOOD SPECIMEN Ordering Facility: [facility] Address: [address] [place] [address] Performed By: #### 2 4323-8, 5643-2, 61834-5 #### [facility] CLIA [id number] [address] [place] [address] [place] Calcium [Mass/Vol] 9.3 mg/dL Normal 8.5-10.2 [facility] Comment on above: Order Comment: Speci men Type: BLOOD SPECIMEN Ordering Facility: [facility] Address: [address] [place] [address] Performed By: #### 2 4323-8, 5643-2, 53583-3 #### [facility] CLIA [id number] [address] [place] [address] [place] Chloride [Moles/Vol] 106 mmol/L Normal 98-107 [facility] Comment on above: Order Comment: Speci men Type: BLOOD SPECIMEN Ordering Facility: [facility] Address: [address] [place] [address] Performed By: #### 2 4323-8, 5643-2, 82094-0 #### [facility] CLIA [id number] [address] [place], [place] [address] [place] CO2 [Moles/Vol] 20 mmol/L Low 22-30 [facility] Comment on above: Order Comment: Speci men Type: BLOOD SPECIMEN Ordering Facility: [facility] Address: [address] [place] [address] Performed By: #### 2 4323-8, 5643-2, 26186-9 #### [facility] CLIA [id number] [address] [place], [place] [address] [place] Creatinine [Mass/Vol] 0.95 mg/dL Normal 0.73-1.[address] [facility] Comment on above: Order Comment: Speci men Type: BLOOD SPECIMEN Ordering Facility: [facility] Address: [address] [place] [address] Performed By: #### 2 4323-8, 5643-2, 61422-4 #### [facility] IA [id number] [address] [place] [address] [place] Creatinine and Glomerular filtration rate.predicted panel (S/P/Bld) 79 mL/min/1.73m??? Normal >=60 [facility] Comment on above: Order Comment: Speci men Type: BLOOD SPECIMEN Ordering Facility: [facility] Address: [address] [place] [address] Result Comment: Stevo mated Glomerular Filtration Rate (eGFR) is calculated using the 2020 CKD-EPI creatinine equation. This equation utilizes serum creatinine, sex, and age as parameters. The creatinine assay has traceable calibration to isotope dilution-mass spectrometry. Refer to KDIGO guidelines for clinical interpretation. In patients with unstable renal function, e.g. those with acute kidney injury, the eGFR may not accurately reflect actual GFR. Performed By: #### 2 4323-8, 5643-2, 67717-0 #### [facility] CLIA [id number] [address] [place], [place] [address] [place] Glucose [Mass/Vol] 96 mg/dL Normal 74-99 [facility] Comment on above: Order Comment: Linda esquivel Type: BLOOD SPECIMEN Ordering Facility: [facility] Address: [address] [place] [address] Result Comment: The [place] Diabetes Association (ADA) provides guidance for cutoff values for fasting glucose and random glucose. The ADA defines fasting as no caloric intake for at least 8 hours. Fasting plasma glucose results between 100 to 125 mg/dL indicate increased risk for diabetes (prediabetes). Fasting plasma glucose results greater than or equal to 126 mg/dL meet the criteria for diagnosis of diabetes. In the absence of unequivocal hyperglycemia, results should be confirmed by repeat testing. In a patient with classic symptoms of hyperglycemia or hyperglycemic crisis, random plasma glucose results greater than or equal to 200 mg/dL meet the criteria for diagnosis of diabetes. Reference: Standards of Medical Care in Diabetes 2016, [place] Diabetes Association. Diabetes Care. 2016.39(Suppl 1). Performed By: #### 2 4323-8, 5643-2, 37047-5 #### [facility] CLIA [id number] [address] [place] [address] [place] Potassium [Moles/Vol] 4.3 mmol/L Normal 3.7-5.[address] [facility] Comment on above: Order Comment: Linda esquivel Type: BLOOD SPECIMEN Ordering Facility: [facility] Address: [address] [place] [address] Performed By: #### 2 4323-8, 5643-2, 51636-9 #### [facility] CLIA [id number] [address] [place], [place] [address] [place] Protein [Mass/Vol] 6.3 g/dL Normal 6.3-8.0 [facility] Comment on above: Order Comment: Linda esquivel Type: BLOOD SPECIMEN Ordering Facility: [facility] Address: [address] [place] [address] Performed By: #### 2 4323-8, 5643-2, 91153-2 #### [facility] CLIA [id number] [address] [place] [address] [place] Sodium [Moles/Vol] 138 mmol/L Normal 136-144 [facility] Comment on above: Order Comment: Speci men Type: BLOOD SPECIMEN Ordering Facility: [facility] Address: [address] [place], [place] [address] Performed By: #### 2 4323-8, 5643-2, 48730-4 #### [facility] CLIA [id number] [address] [place], [place] [address] [facility] Urea nitrogen [Mass/Vol] 9 mg/dL Normal 7-21 [facility] Comment on above: Order Comment: Speci men Type: BLOOD SPECIMEN Ordering Facility: [facility] Address: [address] [place], [place] [address] Performed By: #### 2 4323-8, 5643-2, 76592-0 #### [facility] CLIA [id number] [facility] [place] [address] [facility] ED NOTEon 03-15-2025 ED NOTE HNO ID: [id number] Author: LIZZIE DE CT Service: ? Author Type: Clinical Yarn Texturing Machine Operator Type: ED Notes Filed: 03/15/2025 23:51 Note Text: Pt resting in bed. No acute distress noted. Safety maintained. Will continue to monitor. [facility] ED NOTE HNO ID: [id number] Author: LIZZIE DE CT Service: ? Author Type: Clinical Yarn Texturing Machine Operator Type: ED Notes Filed: 03/15/2025 23:26 Note Text: [facility] ED NOTE HNO ID: [id number] Author: LIZZIE DE CT Service: ? Author Type: Clinical Yarn Texturing Machine Operator Type: ED Notes Filed: 03/15/2025 23:18 Note Text: Pt resting in bed with no complaints at this time. Lights are off and bed is in lowest position. No acute distress is noted. Safety maintained. [facility] ED NOTE HNO ID: [id number] Author: YADIEL CRESPO, MARITZA Service: ? Author Type: Registered Nurse Type: ED Notes Filed: 03/15/2025 22:34 Note Text: Pt resting in room comfortably. Safety maintained with bed in low and locked position. Comfort measures offered, no current complaints. [facility] ED NOTE HNO ID: [id number] Author: YADIEL CRESPO RN Service: ? Author Type: Registered Nurse Type: ED Notes Filed: 03/15/2025 22:14 Note Text: Pt resting in room comfortably. Safety maintained with bed in low and locked position. Comfort measures offered, no current complaints. [facility] ED NOTE HNO ID: [id number] Author: YADIEL CRESPO RN Service: ? Author Type: Registered Nurse Type: ED Notes Filed: 03/15/2025 22:13 Note Text: Pt resting in room comfortably. Safety maintained with bed in low and locked position. Comfort measures offered, no current complaints. [facility] ED NOTE HNO ID: [id number] Author: YADIEL CRESPO RN Service: ? Author Type: Registered Nurse Type: ED Notes Filed: 03/15/2025 22:13 Note Text: Pt resting in room comfortably. Safety maintained with bed in low and locked position. Comfort measures offered, no current complaints. [facility] ED NOTE HNO ID: [id number] Author: LIZZIE DE CT Service: ? Author Type: Clinical Yarn Texturing Machine Operator Type: ED Notes Filed: 03/15/2025 20:33 Note Text: Pt resting in bed with no complaints at this time. Comfort measures offered. No acute distress noted. Safety maintained. [facility] ED NOTE HNO ID: [id number] Author: YADIEL CRESPO RN Service: ? Author Type: Registered Nurse Type: ED Notes Filed: 03/15/2025 20:19 Note Text: Pt resting in room comfortably. Safety maintained with bed in low and locked position. Comfort measures offered, no current complaints. [facility] ED NOTE HNO ID: [id number] Author: LIZZIE DE CT Service: ? Author Type: Clinical Yarn Texturing Machine Operator Type: ED Notes Filed: 03/15/2025 20:12 Note Text: Pt resting in bed with no complaints at this time. Comfort measures offered. No acute distress noted. Safety maintained. [facility] ED NOTE HNO ID: [id number] Author: LIZZIE DE CT Service: ? Author Type: Clinical Yarn Texturing Machine Operator Type: ED Notes Filed: 03/15/2025 19:32 Note Text: RN at bedside for blood drawn. [facility] ED NOTE HNO ID: [id number] Author: YADIEL CRESPO, MARITZA Service: ? Author Type: Registered Nurse Type: ED Notes Filed: 03/15/2025 20:18 Note Text: Assumed care of pt at this time. Report received from previous RN all questions answered and addressed. Introduced self to pt at this time, and noted that all comfort measures have been meant. [facility] ED NOTE HNO ID: [id number] Author: PRASAD BECKER, MARITZA Service: ? Author Type: Registered Nurse Type: ED Notes Filed: 03/15/2025 18:52 Note Text: Pt brought into ED for psychiatric evaluation. Pt states that for the past 6 months he has been having auditory and visual hallucinations. Pt states that the past 2 days his symptoms got worse. Pt states that he has been constantly hearing an foundation drill operator and voices saying mean things; pt also states that everything she sees is moving and morphing. Pt denies any SI or HI. [facility] ED PROV NOTEon 03-15-2025 ED PROV NOTE HNO ID: [id number] Author: LAURENT GOVEA MD Service: Emergency Medicine Author Type: Physician Type: ED Provider Notes Filed: 03/16/2025 00:41 Note Text: ED Provider Note Patient Name: Lily Quiroz : 1990 SERVICE DATE: 03/15/25 History No chief complaint on file. HPI Patient is a 35-year-old female to male transgender patient presenting to the emergency department chief complaint of psychosis. Patient reports that he has been dealing with psychosis over the course of the past 6 months, patient has been in outpatient treatment at [facility], reports psychosis has been worsening despite this treatment, was advised to present to be evaluated for inpatient admission by her outpatient mental health provider. Patient reports that he has been experiencing both auditory and visual hallucinations. Reports of visual hallucinations include war pain and bending of text . Denies. Making it difficult to read. Reports that auditory hallucinations are a mixture of music and a voice telling him mean things. Denies any command hallucinations denies any SI/HI at this time. Patient reports compliance on currently prescribed medications including lithium PAST MEDICAL HISTORY Diagnosis Date Anxiety Atrial fibrillation (HCC) 05/2017 diagnosed age 23 Bipolar 1 disorder (HCC) 2014 History of seizures until age 15 MTHFR mutation (methylenetetrahydrofol ate reductase) Panic attacks Prolonged QT interval possible, per psych PTSD (post-traumatic stress disorder) complex Schizoaffective disorder (HCC) PAST SURGICAL HISTORY Procedure Laterality Date EXTENSIVE JAW SURGERY 2001 PAST SURGICAL HISTORY OF sinus surgery for deviated septum PAST SURGICAL HISTORY OF ECT treatments - 23 FAMILY HISTORY Problem Relation Age of Onset Hypertension Mother other (pulmonary embolism) Mother PE x 9 other (MTHFR) Mother other (lupus) Mother other (essential tremor) Mother other (mirgraines) Mother Psoriasis Brother other (crohns) Brother other (rheumatoid arthritis) Brother other (atrial fibrillation) Maternal Grandfather newly diagnosed 2016 at age 90 Psoriasis Brother Psoriasis Brother Psoriasis Brother Social History Tobacco Use Smoking status: Never Smokeless tobacco: Never Vaping Use Vaping status: Never Used Substance and Sexual Activity Alcohol use: No Drug use: Not Currently Types: Marijuana Comment: 1 gummy THC; only used once Sexual activity: Never ALLERGIES Allergen Reactions Methylphenidate Mental Status Change Abilify [Aripiprazo* Rash Dilaudid [Hydromorp* Vomiting Haldol [Haloperidol] Rash Ketamine Vomiting Rexulti [Brexpipraz* Rash Review of Systems Constitutional: Negative for chills and fever. Respiratory: Negative for shortness of breath. Cardiovascular: Negative for chest pain. Gastrointestinal: Negative for constipation, diarrhea, nausea and vomiting. Endocrine: Negative for cold intolerance and heat intolerance. Genitourinary: Negative. Neurological: Negative for weakness and numbness. Psychiatric/Behavioral: Positive for hallucinations. Negative for self-injury and suicidal ideas. Physical Exam Vitals [03/15/25 1845] BP Pulse Temp Temp src Resp SpO2 Weight Height 136/88 (!) 98 36.7 ?C (98 ?F) Oral 18 100 % -- -- Physical Exam Constitutional: General: He is not in acute distress. Appearance: Normal appearance. He is not toxic-appearing. HENT: Head: Normocephalic and atraumatic. Eyes: Extraocular Movements: Extraocular movements intact. Cardiovascular: Rate and Rhythm: Normal rate and regular rhythm. Heart sounds: No murmur heard. No friction rub. No gallop. Pulmonary: Effort: Pulmonary effort is normal. No respiratory distress. Breath sounds: Normal breath sounds. No wheezing, rhonchi or rales. Abdominal: General: There is no distension. Palpations: Abdomen is soft. Tenderness: There is no abdominal tenderness. Musculoskeletal: General: No swelling, deformity or signs of injury. Cervical back: Normal range of motion. Skin: General: Skin is warm and dry. Findings: No lesion. Neurological: General: No focal deficit present. Mental Status: He is alert. Mental status is at baseline. Sensory: No sensory deficit. Motor: No weakness. Psychiatric: Mood and Affect: Mood normal. Behavior: Behavior normal. Thought Content: Thought content normal. Diagnostic Testing ED Labs Ordered and Reviewed COMPLETE BLOOD COUNT - Abnormal; Notable for the following components: Result Value Ref Range WBC 15.44 (*) 3.70 - 11.00 k/uL Hemoglobin 12.6 (*) 13.0 - 17.0 g/dL Hematocrit 38.5 (*) 39.0 - 51.0 % All other components within normal limits COMPREHENSIVE METABOLIC PANEL - Abnormal; Notable for the following components: AST 13 (*) 14 - 40 U/L CO2 20 (*) 22 - 30 mmol/L All other components within normal limits TOXICOLOGY SCREEN, ROUTINE (more content not included)... Normal [facility] EKGon 03-15-2025 Electrocardiogram Ventricular Rate : 9 0 BPM Atrial Rate : 90 BPM P-R Interval : 153 ms QRS Duration : 88 ms Q-T Interval : 375 ms QTC Calculation(Bazett) : 459 ms Calculated P Patriot : 76 degrees Calculated R Patriot : 87 degrees Calculated T Patriot : 66 degrees Sinus rhythm Normal ECG No Stemi Confirmed by LAURENT GOVEA MD ([id number]) on 03/15/2025 7:10:14 PM NAME : LILY QUIROZ PID : [id number] : 1990 Gender : Female Race : ORD : Procedure Date : Mar 15 2025 19:06:22 Edit Date : Mar 15 2025 19:10:16 Diagnosis: Sinus rhythm Normal ECG No Stemi Confirmed by LAURENT GOVEA MD ([id number]) on 03/15/2025 7:10:14 PM Test Reason : Location : [facility] : [place] [address] Overread By : LAURENT GOVEA MD Edited By : LAURENT GOVEA MD Referred By : , Acquired by : [id number], Normal [facility] Ethanol SerPl-mCncon 025 Ethanol [Mass/Vol] mg/dL Normal <11 [facility] Comment on above: Order Comment: Speci men Type: BLOOD SPECIMEN Ordering Facility: [facility] Address: [address] [place] [address] Performed By: #### 2 4323-8, 5643-2, 16525-2 #### [facility] CLIA [id number] [address] [place] [address] [place] HCG Preg Ur Qlon 03-15-2025 HCG ( test) Ql (U) Negative Normal Negative [facility] Comment on above: Order Comment: Speci men Type: URINE SPECIMENOrdering Facility: [facility] Address: [address] [place] [address] Result Comment: This test is intended to aid in the early detection of . Very dilute urine samples, as indicated by a low specific gravity, may not contain sales representative leather goods levels of hCG. This test detects intact hCG only. This test does not reliably detect hCG degradation products, including free-beta subunit and beta-core fragment. Therefore, this test may show reduced reactivity in urine after 8 weeks gestation. A number of conditions other than , including trophoblastic disease and certain non-trophoblastic neoplasms cause elevated levels of hCG. As with any assay employing mouse antibodies, the possibility exists for interference by human anti-mouse antibodies (HAMA) in the specimen. The test provides a presumptive diagnosis for . Performed By: #### 2 106-3, UTOX2 ####[facility] [id number] [place] [id number] [place] Athalia, Bld SerPl-sCncon Athalia [Moles/Vol] 0.6 mmol/L Normal 0.6-1.2 [facility] Comment on above: Order Comment: Speci men Type: BLOOD SPECIMEN Ordering Facility: [facility] Address: [address] [place] [address] Result Comment: Refe rence ranges and high/low indicator flags are provided as general guidelines only. The treating physician must determine appropriate target levels/dosing based on the specific clinical situation. Performed By: #### 2 4323-8, 5643-2, 78590-7 #### [facility] CLIA [id number] [address] [place] [address] [place] TOXICOLOGY SCREEN, ROUTINE U RINEon 03-15-2025 Amphetamines Confirm (U) [Mass/Vol] Negative Normal Negative [facility] Comment on above: Order Comment: Speci men Type: URINE SPECIMENOrdering Facility: [facility] Address: [address] [place] [address] Result Comment: Cuto ff threshold at 1000 ng/mL. Performed By: #### 2 106-3, UTOX2 ####[facility] [id number] [address] [place] [address] [place] BARBITURATES, URINE Negative Normal Negative [facility] Comment on above: Order Comment: Speci men Type: URINE SPECIMENOrdering Facility: [facility] Address: [address] [place] [address] Result Comment: Cuto ff threshold at 200 ng/mL. Performed By: #### 2 106-3, UTOX2 ####[facility] [id number] [address] [place] [address] [place] BENZODIAZEPINES, UR Negative Normal Negative [facility] Comment on above: Order Comment: Speci men Type: URINE SPECIMENOrdering Facility: [facility] Address: [address] [place] [address] Result Comment: Cuto ff threshold at 200 ng/mL. Performed By: #### 2 106-3, UTOX2 ####[facility] [id number] [place] [address] [place] Cannabinoids Screen Ql (U) Negative Normal Negative [facility] Comment on above: Order Comment: Speci men Type: URINE SPECIMENOrdering Facility: [facility] Address: [address] [place] [address] Result Comment: Cuto ff threshold at 50 ng/mL. Performed By: #### 2 106-3, UTOX2 ####[facility] [id number] [place] [address] [place] Cocaine Ql (U) Negative Normal Negative [facility] Comment on above: Order Comment: Speci men Type: URINE SPECIMENOrdering Facility: [facility] Address: [address] [place] [address] Result Comment: Cuto ff threshold at 300 ng/mL. Performed By: #### 2 106-3, UTOX2 ####[facility] [id number] [address] [place] [address] [place] Ethanol (U) [Mass/Vol] <11 Normal <11 [facility] Comment on above: Order Comment: Speci men Type: URINE SPECIMENOrdering Facility: [facility] Address: [address] [place] [address] Performed By: #### 2 106-3, UTOX2 ####[facility] [id number] [address] [place] [address] [place] Opiates Screen Ql (U) Negative Normal Negative [facility] Comment on above: Order Comment: Speci men Type: URINE SPECIMENOrdering Facility: [facility] Address: [address] [place] [address] Result Comment: Cuto ff threshold at 300 ng/mL. Performed By: #### 2 106-3, UTOX2 ####[facility] [id number] [address] [place] [address] [place] oxyCODONE cutoff Screen (U) [Mass/Vol] Negative Normal Negative [facility] Comment on above: Order Comment: Speci men Type: URINE SPECIMENOrdering Facility: [facility] Address: [address] [place] [address] Result Comment: Cuto ff threshold at 100 ng/mL. Performed By: #### 2 106-3, UTOX2 ####[facility] [id number] [address] [place] [address] [place] Phencyclidine Ql (U) Negative Normal Negative [facility] Comment on above: Order Comment: Speci men Type: URINE SPECIMENOrdering Facility: [facility] Address: [address] [place] [address] Result Comment: Cuto ff threshold at 25 ng/mL. Performed By: #### 2 106-3, UTOX2 ####[facility] [id number] [address] [facility] CNOVon 01-29-2025 CNOV Office Visit (CARDMN ) LILY QUIROZ ([id number]) 1990 F Date Time Provider Department 01/29/25 5:00 PM DORIAN JEFFERS CARDMN During your visit today, we recorded the following information about you: Pulse Blood pressure Weight Height 72/minute 116/73 66.7 kg 1.727 m Dorian Jeffers MD 01/29/2025 4:50 PM Signed [facility] [place] [facility] Department of Cardiovascular Medicine SECTION OF CARDIAC PACING and ELECTROPHYSIOLOGY OUTPATIENT VISIT DATE January 29, 2025 OUTPATIENT VISIT TYPE ESTABLISHED PRIMARY CARE PHYSICIAN: Danny Lea [address] [place] [id number] REFERRING PHYSICIAN: Dorian Jeffers [address] [place] [id number] CHIEF COMPLAINT: AF/palpitations HISTORY OF PRESENT ILLNESS/NURSING INTAKE NOTE: Mr. Quiroz is a 34 year old adult who presents today for follow-up visit for management of atrial fibrillation. He was last seen in office 01/19/2022. He has a PMH of AF confirmed on Cardionet 2017, anxiety, bipolar disorder and MTHFR gene mutation (predisposition to stroke and thromboembolism), it was decided to keep them on aspirin alone. He has had a few episodes of atrial fibrillation confirmed by a smart watch which were occurring monthly to every month an a half. They can last up to an hour but usually last about five minutes. He was dizzy and anxious and admitted to 200mg caffeine per day. He wore a zio that showed sinus rhythm and a bit of SVT. He has been maintained on metoprolol and feels he is doing well on this. He denies chest pain, orthopnea, cough, edema, PND, lightheadedness or syncope. PAST MEDICAL HISTORY Diagnosis Date Anxiety Atrial fibrillation (HCC) 05/2017 diagnosed age 23 Bipolar 1 disorder (HCC) 2014 History of seizures until age 15 MTHFR mutation (methylenetetrahydrofol ate reductase) Panic attacks Prolonged QT interval possible, per psych PTSD (post-traumatic stress disorder) complex Schizoaffective disorder (HCC) PAST SURGICAL HISTORY Procedure Laterality Date EXTENSIVE JAW SURGERY 2001 PAST SURGICAL HISTORY OF sinus surgery for deviated septum PAST SURGICAL HISTORY OF ECT treatments - 23 SOCIAL HISTORY Social History Tobacco Use Smoking status: Never Smokeless tobacco: Never Vaping Use Vaping status: Never Used Substance Use Topics Alcohol use: No Drug use: Not Currently Types: Marijuana Comment: 1 gummy THC; only used once FAMILY HISTORY Problem Relation Age of Onset Hypertension Mother other (pulmonary embolism) Mother PE x 9 other (MTHFR) Mother other (lupus) Mother other (essential tremor) Mother other (mirgraines) Mother Psoriasis Brother other (crohns) Brother other (rheumatoid arthritis) Brother other (atrial fibrillation) Maternal Grandfather newly diagnosed 2016 at age 90 Psoriasis Brother Psoriasis Brother Psoriasis Brother ALLERGIES: ALLERGIES Allergen Reactions Methylphenidate Mental Status Change Abilify [Aripiprazo* Rash Dilaudid [Hydromorp* Vomiting Haldol [Haloperidol] Rash Ketamine Vomiting Rexulti [Brexpipraz* Rash MEDICATIONS: benztropine (COGENTIN) 0.5 mg tablet Take 0.5 mg by mouth once daily. prazosin (MINIPRESS) 1 mg cap Take 1 mg by mouth daily at bedtime. hydrOXYzine HCl (ATARAX) 25 mg tablet Take 25 mg by mouth two times a day as needed for anxiety. MULTIVITAMIN ORAL Take by mouth. metoprolol succinate ER (TOPROL XL) 50 mg 24 hr tablet Take 1 tablet by mouth every afternoon. Appointment needed pantoprazole DR (PROTONIX) 40 mg tablet TAKE 1 TABLET BY MOUTH EVERY DAY QUEtiapine (SEROQUEL) 50 mg tablet Take 200 mg by mouth at bedtime as needed. famotidine (PEPCID) 20 mg tablet take 1 tablet by mouth twice a day lamoTRIgine (LAMICTAL) 100 mg tablet Take 1 tablet by mouth twice daily. lithium carbonate ER 300 mg CR tablet Take 2 tablets by mouth twice daily. aspirin, enteric coated (ASPIRIN, ENTERIC COATED) 81 mg EC tablet Take 81 mg by mouth once daily. Aaliyah Felix RN PHYSICAL EXAMINATION: BP 116/73 Pulse 72 Ht 172.7 cm (5' 8") Wt 66.7 kg (147 lb) LMP 11/30/2023 (Approximate) BMI 22.35 kg/m? General: Well appearing, in no acute distress, speaking in complete sentences. Skin: No clubbing, no cyanosis. Neck: no jugular venous distention, Lungs: Clear to auscultation bilaterally, no wheezing or rhonchi. Heart: Regular rhythm, PMI not displaced, S1, S2 normal, no S3, no S4, no heaves, no rub and no murmur. Abdomen: Soft, nontender, bowel sounds normal, no palpable organomegaly, no bruits. Extremities: No peripheral edema . Grade 2/4 distal pulses bilaterally. Neuro: Oriented to person, place and time, alert, cooperative, gait coordinated. CARDIOVASCULAR MEDICINE TESTING: ECG - sinus rhythm, 65 bpm. Zio 02/01/2022-02/13 (more content not included)... Normal [facility] ECG COMPLETEon 01-29-2025 ECG COMPLETE Ventricular Rate : 6 5 BPM Atrial Rate : 65 BPM P-R Interval : 170 ms QRS Duration : 82 ms Q-T Interval : 424 ms QTC Calculation(Bazett) : 440 ms Calculated P Patriot : 60 degrees Calculated R Patriot : 79 degrees Calculated T Patriot : 66 degrees NORMAL SINUS RHYTHM NORMAL ECG Confirmed by SHU SINHA MD ([id number]) on 02/28/2025 7:59:43 PM NAME : LILY QUIROZ PID : [id number] : 1990 Gender : Female Race : ORD : [id number] Procedure Date : Jan 29 2025 15:44:08 Edit Date : Feb 28 2025 19:59:44 Diagnosis: NORMAL SINUS RHYTHM NORMAL ECG Confirmed by SHU SINHA MD ([id number]) on 02/28/2025 7:59:43 PM Test Reason : Location : 314 : J14 Overread By : SHU SINHA MD Edited By : SHU SINHA MD Referred By : DORIAN JEFFERS Acquired by : YVON THOMAS [facility] Care Plan Noteon 12-11-2024 [employer] Authentication Interface Message Text SW provided medication voucher for patient. Patient does not currently have insurance. This voucher is a yearly voucher. Patient will not be able to receive another medication voucher until 12-11-25. The amount vouchered is $57.54. Farrah Barajas FLOOR HAND [facility] Inpatient Behavioral Health Normal [facility] Lye Boiler Authentication Interface Message Text Problem: Psychiatric Follow Up Goal: Schedule psychiatric follow-up Outcome: Adequate for Discharge Problem: Mood-Depression Goal: Stabilize mood and increase goal-directed behavior Outcome: Adequate for Discharge Social Work Discharge Plan Patient's Contact Information: Address: [address] [place] [address] DISCHARGE PLAN: Home - Other's Disposition Location: Lei Quiroz (brother) [address] [place] [address] Community Referrals initiated: Mental Health TRANSPORTATION TO AND/OR FROM APPOINTMENTS: Drives Self Support Person Support Person Aware of Discharge: Yes Support Person's Name: Lei Quiroz Number: [phone] Relationship to Patient: Brother Prior to discharge, our [facility] pharmacy will deliver your medications to your bedside.: Yes Long Acting Injectables Long Acting Injectables (REID): No Discharge Home Health Care: No Psych Medicaid Follow-Up: No LINC Follow-up: No Substance Use Follow-up Plan: Has information as needed COMMUNITY FOLLOW- UP: Yes, Mental Health Mental Health - Community Agency: Other (In County) ([facility]) Community Provider Follow-up Date: 12/14/24 Community Provider Follow-up Time: 0930 IM Letters #1 IM Letter date:: 12/11/24 Probate/Mental Health Board Notified: No Pt has been deemed stable for DC this date per MD/FLORAL ARRANGER. CHARITY spoke with pt on the unit regarding discharge plans. CHARITY provided update to pt regarding outpatient services at [facility] and confirmed DC plan. Patient confirms he will discharge to his brother's home Lei Quiroz [phone]. Patient will transport self due to car being parked in the outside parking lot of this hospital. Patient has access to his car keys. STORE ASSISTANT and MD are aware patient will transport self once discharged. SW spoke with patient's brother Lei who confirms patient will discharge to his home once discharged. Psychiatric Follow Up: [facility] Adriana Mccallum 12-14-24 @ 9:30 am Transportation: Self (car parked in parking lot) Farrah Barajas [facility] Inpatient Behavioral Health Normal [facility] [employer]iler Authentication Interface Message Text Problem: Risk For Suicide: Goal: Remains safe during hospitalization Outcome: Progressing Goal: Ability to disclose and discuss suicidal ideas will improve and be maintained Outcome: Progressing Problem: Safety: Goal: Patient will remain free of falls during hospital stay Outcome: Progressing Goal: Free from injury during hospitalization Outcome: Progressing Problem: Ineffective Coping Strategies Goal: Arcadio will be able to identify their triggers. Outcome: Progressing Goal: Arcadio will be able to identify their negative coping mechanisms. Outcome: Progressing Goal: Arcadio will be able to identify positive coping mechanisms. Outcome: Progressing Problem: Thought Disorders Goal: LTG: Sustain symptom remission and continue the gains made during the acute phase of treatment Outcome: Progressing Goal: STG: Increase understanding of positive symptoms as evidenced by patient self-report Outcome: Progressing Goal: STG: Promote adherence to treatment regimen Outcome: Progressing Problem: Mood-Depression Goal: Stabilize mood and increase goal-directed behavior Outcome: Progressing Patient is observed to be out on the division and is engaging with peers. Patient denies any thoughts or intent of wanting to hurt himself or others at this time. Patient is denying any auditory or visual hallucinations at this time. Patient is calm, cooperative, and his behavior is in control. Patient is maintained on assault and moderate suicide precautions. Patient is maintained on Q 6 minute safety checks. Normal [facility] [employer] Authentication Interface Message Text Problem: Safety: Goal: Patient will remain free of falls during hospital stay Outcome: Progressing Assumed care of pt @ 0100. Pt RIB with eyes closed for approx 9 hours. Respirations even and unlabored. No falls this shift. Observations maintained for safety. Normal [facility] Group Noteon 12-11-2024 Lye Boiler Authentication Interface Message Text Music, Art AND Film Group Session Group Date: 12/11/2024 Group Ratio: 7:1 Activity: Art/Craft: Open Art Goal: Increase socialization and promote positive coping skills in a therapeutic environment Start time: 1410 End time: 1535 Lily Quiroz Patient made good progress toward group discussion. Patient appeared to have a broad affect. Patient was calm and cooperative with no inappropriate behaviors observed. Patient was observed coloring/drawing and socializing with staff and peers. Antonio Madison, Behavioral Health Specialist Normal [facility] [employer] Interface Message Text Therapeutic Discussions Group Session Group Date: 12/11/2024 Group Ratio: 8:1 Topic: Community: Engage in emotional identification and setting goals for the day. Goal: Increase emotional identification. Work with patients to identify coping and problemsolving strategies to assist in mental health symptom management for the day. Increase appropriate socialization of unit patients. Engaged group members in emotional check-in where they were encouraged to identify how they feel today, what is contributing to that feeling and ways to either maintain it (if positive) or to improve it (if identified as negative/unwanted). Identified with patients goals for the day and what resources/people they needed to connect with during the day to assist with addressing that goal. Encouraged group members to identify how they could best support each other in goal attainment. Start time: 914 End time: 934 Lily Quiroz Patient made good effort toward group discussion. Patient appeared to have a flat affect. Patient was calm and cooperative with no inappropriate behaviors observed. Patient identified his mood as "alright" and stated he was a 5/10. Patient stated he slept well and endorsed increased sleep since admission. Patient stated his goal today is to see his treatment team. Patient stated he is thankful for "my cat". Antonio Madison Behavioral Health Specialist [facility] [employer] Interface Message Text Attestation signed by Segun Delgado Psy.D. at 12/12/2024 7:36 PM : I am the supervising psychologist for this band tumbler. I provided Direct Supervision for this encounter. I was immediately available and interruptible to provide assistance and direction throughout the performance of the psychotherapy treatment service. I reviewed case material and agree with assessment and plan. Group Progress Note Group Date: 12/11/2024 Group Ratio (Client/Staff): 6:1 Topic: Stress Management Goal: For patients to develop a better understanding of how they currently respond to stress, if it's adaptive or maladaptive, and how it impacts them physically, emotionally, and cognitively. Activities/Therapeutic Interventions: Baccarat Manager provided psychoeducation on the acute and chronic effects of stress, breaking this down into physical, cognitive, emotional, and behavioral responses/symptoms of stress. Group members were given a space to share how they respond to stress and work as a group to identify more adaptive ways of coping based on their specific experiences of stress. The patient has been informed that treatment and assessment services provided by Mellisa linares PsyD, Formation Fracturing Operator are through [facility] and are supervised by licensed Psychologist, Dr. Segun Donohue PsyD The patient was also notified/reminded of the limits of confidentiality at the beginning of the appointment. Group Counseling Note - Individual Section Time Start: 1100 Time Finish: 1138 The patient was present for entire session Suicide Screener: C-SSRS Ritchie-Suicide Severity Rating Scale 1) Wish to be : Yes 2) Current suicidal thoughts: Yes 3) Suicidal thoughts w/ Method (w/no specific Plan or Intent or act): Yes 4) Suicidal Intent without Specific Plan: No 5) Intent with Plan: No 6) C-SSRS Suicidal Behavior: No Risk of Suicide: Moderate Risk SAFE-T SAFE-T Risk Factors Previous suicidal behavior: History of Prior Suicide Attempts Psychiatric diagnosis (current/past): Mood disorder;ADHD;Posttraum atic Stress Disorder Current symptoms: depressed mood;suicidal thoughts;homicidal thoughts;visual hallucinations;command hallucinations;hopeless ness Family History (suicide, attempts): None Precipitants/stressors/ interpersonal issues: none Change in treatment (recent discharge from hospital, medication/provider changes): provider or treatment change Access to firearms: No Current substance use: No Protective Factors External Protective Factors: Active Treatment for Mental Health;Family support Internal protective factors: Fear of dying Suicide Inquiry In the last month, how many times have you had suicidal thoughts?: Daily or almost daily In the last month, when you have had suicidal thoughts, how long do they last?: 1-4 hours/a lot of time In the last month, could/can you stop thinking about killing yourself or wanting to if you want to?: Can control thoughts with some difficulty In the last month, are there things - anyone or anything (i.e. family, scientology, pain of ) - that stopped you from wanting to or acting on thoughts of suicide?: Uncertain that deterrents stopped you Reason for ideation - Full question in Row Information: Equally to get attention, revenge or a reaction from others and to end/stop the pain Ideation Score Sum of Frequency, Duration, Controlability AND Deterrents: 16 Plan: none Behaviors: past attempts Intent: none Risk Level AND Recommendation Risk Level (MUST COMPLETE): Moderate Recommendations: suicide precautions;develop crisis plan;symptom reduction;other (see comments) (admission) Chief Complaint: Psychosis The patient was active and engaged throughout group. He identified art and drawing as the main ways he katie with stress. 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 However, he shared recently that a police and fire dispatcher trained to respond to mental health crises was part of the team who brought him to the hospital, and that this helped him feel more at ease. MENTAL STATUS EXAMINATION: Appearance AND attitude: calm, cooperative, friendly. Mood: euthymic. Affect: congruent. Speech: appropriate AND spontaneous, normal rate AND flow. Thought form: logical, organized. Thought content AND perception: no abnormal processes noted. Orientation: Oriented to time, person AND place. Memory AND attention: sustained. Judgment AND insight: fair SI/HI: No ideation endorsed throughout group. Diagnosis: Bipolar I Disorder with psychotic features, most recent episode unspecified MELLISA FABIAN Psy.D. [facility] Progress Noteson 12-11-2024 Lye Boiler Authentication Interface Message Text Attestation signed by Segun Delgado Psy.D. at 12/12/2024 7:38 PM : I am the supervising psychologist for this band tumbler. I provided Direct Supervision for this encounter. I was immediately available and interruptible to provide assistance and direction throughout the performance of the psychotherapy treatment service. I reviewed case material and agree with assessment and plan. Behavioral Health Individual Psychotherapy Note Patient was informed of the nature of the therapeutic relationship and informed consent was obtained. Patient was reminded of the limits to confidentiality related to treatment and the therapist's role in the treatment team. Patient was informed that this provider is a band tumbler and operates under the supervision of Segun Wise PsyD. Patient was informed that patient could request to meet with Dr. Charanjit Wise at any time to address concerns or questions. Patient was seen for an individual psychotherapy session. [facility]: [facility] Start: 9:45 End: 10:15 Chief Complaint: Psychosis Goal Addressed: Supportive therapy Improve coping Therapeutic Interventions: Supportive therapy Solution focused interventions, discussion, questioning The provider offered the patient the opportunity to engage in individual therapy, which he was open and agreeable to. He reported being in the hospital as he has been hearing voices and "seeing patterns". His psychiatrist encouraged him to go to the hospital. He denied any prior episodes of psychosis, but has been experiencing visual and auditory hallucinations for approximately two months now. He has struggled with episodes of tea and depression throughout his life, but has not experienced psychosis prior to this. He reported his main goal for hospitalization is to get his medication adjusted. The provider validated the client's fears and explored his plans for discharge. He endorsed that he plans to keep seeing his psychiatrist for medication whom he has been working with for six years and seeing a psychologist for therapy that he has been working with for approximately a year. Aside from hallucinations he reported his biggest stressor as housing, but is working on finding housing through [facility]. Patient Response to Intervention: Patient verbalized understanding of topic covered Mental Status Exam 1. APPEARANCE: well groomed 2. BEHAVIOR: cooperative 3. ORIENTATION: Oriented to time, person AND place 4. SPEECH: spontaneous, normal rate and flow 5. THOUGHT PROCESS: logical, organized 6. THOUGHT CONTENT: No evidence of paranoia, No evidence of delusions 7. SUICIDAL/HOMICIDAL IDEATION: No suicidal/homicidal ideations 8. PERCEPTIONS: Has been experiencing auditory/visual hallucinations; denied hallucinations as time of meeting 9. MOOD: euthymic 10. AFFECT: constricted 11. ATTENTION/CONCENTRATION : Sustained 12. RECENT AND REMOTE MEMORY: Within normal limits 13. JUDGMENT AND INSIGHT: Fair Problem list was reviewed and was changed or maintained as the following: Patient Active Problem List: Bipolar 1 disorder (HCC) [F31.9] Atrial fibrillation (HCC) [I48.91] Post traumatic stress disorder (PTSD) [F43.10] ADHD (attention deficit hyperactivity disorder) [F90.9] DSM-5-TR Diagnosis of Focus for Today's Session: Bipolar 1 Disorder R/O: Unspecified Schizophrenia Spectrum AND Other Psychotic Disorder Plan: Will encourage basic coping skills MELLISA FABIAN Psy.D. Normal [facility] L[employer] Boiler Authentication Interface Message Text PSYCHIATRY Identifying data: Lily Quiroz 34 year old adult White [id number] Length of stay: 3 day(s) History of Presenting Illness Mr. Lily Quiroz is a 34 year old female to male transgender with a past psychiatric history of Bipolar disorder type I, Post-traumatic stress disorder, Attention deficit hyperactivity disorder who was initially brought in by self for suicidal ideation due to ecent medication changes and housing instability. Interval Summary: 12/08/24: H AND P completed. Admitted to 1B. Transferred later in the evening to 3A. 12/09/24: No medication changes today. Will assess tomorrow if medication changes are needed. 12/09/2024: Increase lithium to 450mg by mouth twice daily. Athalia level <.58. Decrease Seroquel to 50mg by mouth 12/10/2024: Stopped Klonopin and Seroquel, Switched Athalia to 300 mg every morning and 600 mg at bedtime. Patient wants to be discharged today. Per nursing report, Patient is observed to be out on the division and is engaging with peers. Patient denies any thoughts or intent of wanting to hurt himself or others at this time. Patient is denying any auditory or visual hallucinations at this time. Patient is calm, cooperative, and his behavior is in control. Patient is maintained on assault and moderate suicide precautions. Patient is maintained on Q 6 minute safety checks. Subjective: On interview Meet the patient this morning with the treatment team. Patient says he wants to be discharged today. Patient asserts that he is "doing better," does not need to be here. Patient wants to go back to his brother's house. Patient states that he will be safe there. Patient is taking his medications; patient wants to continue his medications. He feels that medications is helping him with his symptoms. Patient says that he would go for his psychiatrist appointment as scheduled. He feels that going to his appointments will help him to be committed to his medications. Patient also wants to go to psychotherapy. Reports that while in the inpatient unit, the psychotherapy and group therapy helped him. During the interview patient is calm and quiet, smiling appropriately. Patient vehemently denies any current anxiety or depression or any suicidal ideation, intention and plan and homicidal ideation, intention and plan or auditory verbal or non-verbal hallucination and visual hallucination or paranoid ideation. He stated that while he was here, he was able to "look at the better picture of my life, and I would never let my brother's down. I love myself." Patient continued to be future oriented, goal directed and treatment seeking. Patient told me that once when he gets discharged, he would continue all the coping mechanisms that he learned in inpatient psychiatric unit. He states that he is not going to use any substances or any illegal drugs. At the end patient was thankful for his treatment and told me that being in the hospital for his treatment was really helpful for him. Patient feels safe to be discharged. Psychiatry Review of symptoms: Anxiety Denies any symptoms of anxiety that includes restlessness, irritability, muscle tension, or sleep disturbance. Depression Denies any symptoms of depression that includes decreased sleep, interest, guilt, energy, concentration, appetite. No psychomotor changes, suicidal ideations, hopeless, helpless, worthless, homicidal ideations. Tea: Denies any symptoms of tea that include distractibility, indiscretion, irritable mood or sleep deficits. Did not observe any talkativeness, grandiosity or flight of ideas. Psychosis: Denies any symptoms of psychosis that include auditory verbal or non-verbal hallucination, visual hallucinations, or paranoid ideation. PTSD: Denies any symptoms of PTSD that include Nightmare, startle response, hypervigilant, avoiding external reminders of the stressful experience. MEDICATIONS: Scheduled: [START ON 12/12/2024] lithium 300 mg q AM And lithium 600 mg At Bedtime aspirin 81 mg Daily Cerovite Jr 1 Tablet Daily ferrous sulfate 325 mg Every Other Day vitamin B-12 1,000 mcg Daily vitamin D2 ergocalciferol 50,000 Units Q7 Days OLANZapine 10 mg At Bedtime famotidine 20 mg 2x Daily lamotrigine 150 mg 2x Daily metFORMIN 500 mg 2x Daily with Meals metoprolol 50 mg Daily pantoprazole 40 mg Daily 30 min before breakfast PRN: hydrOXYzine 25 mg 3x Daily PRN ondansetron 4 mg Q4H PRN acetaminophen 325 mg Q4H PRN acetaminophen 650 mg Q4H PRN acetaminophen 1,000 mg Q6H PRN polyethylene glycol 17 g Daily PRN OLANZapine 10 mg Q6H PRN Or OLANZapine 10 mg Q6H PRN Objective: VITALS BP 112/69 (BP Location: left arm) Pulse 72 Temp 98.8 ???F (37.1 ???C) (Temporal) Resp 16 Ht 5' 8" (1.727 m) Wt 134 lb (60.8 kg) SpO2 100% BMI 20.37 kg/m??? MENTAL STATUS EXAMINATION General: Average built female to male transgender, (more content not included)... Normal [facility] [employer] Authentication Interface Message Text 0 Assumed care of patient. He is somewhat brighter today and more talkative and less sleepy. He had snack and was medication compliant. He denies SI and HI. He denies A/V hallucinations. [facility] Care Plan Noteon 12-10-2024 Lye Boiler Authentication Interface Message Text Problem: Risk For Suicide: Goal: Remains safe during hospitalization Outcome: Progressing Goal: Ability to disclose and discuss suicidal ideas will improve and be maintained Outcome: Progressing Problem: Safety: Goal: Patient will remain free of falls during hospital stay Outcome: Progressing Goal: Free from injury during hospitalization Outcome: Progressing Problem: Ineffective Coping Strategies Goal: Arcadio will be able to identify their triggers. Outcome: Progressing Goal: Arcadio will be able to identify their negative coping mechanisms. Outcome: Progressing Goal: Arcadio will be able to identify positive coping mechanisms. Outcome: Progressing Problem: Thought Disorders Goal: LTG: Sustain symptom remission and continue the gains made during the acute phase of treatment Outcome: Progressing Goal: STG: Increase understanding of positive symptoms as evidenced by patient self-report Outcome: Progressing Goal: STG: Promote adherence to treatment regimen Outcome: Progressing Problem: Mood-Depression Goal: Stabilize mood and increase goal-directed behavior Outcome: Progressing Patient is observed to be out on the division and is keeping to himself. Patient denies any thoughts or intent of wanting to hurt himself or others at this time. Patient is endorsing seeing "the sheets move" and has been seeing this for a while now. Patient is also endorsing hearing voices "but I am ignoring them". Patient is observed to have a good appetite and is endorsing sleeping well at this time. Patient is ordered boost and has been drinking them. Patient is compliant with his medications at this time. Patient is maintained on assault and moderate suicide precautions. Patient is maintained on Q 6 minute safety checks. Normal [facility] Progress Noteson 12-10-2024 Lye Boiler Authentication Interface Message Text PSYCHIATRY Identifying data: Lily Quiroz 34 year old adult White [id number] Length of stay: 1 day(s) Reason for Admission: Patient with a history of bipolar 1 disorder, Tardive dyskinesia, ADHD, PTSD who was brought/referred by self for SI and psychotic symptoms. Stressors / Circumstances: recent medication changes and housing instability. Interval Summary: 12/08/24: H AND P completed. Admitted to 1B. Transferred later in the evening to 3A. 12/09/24: No medication changes today. Will assess tomorrow if medication changes are needed. 12/09/2024: Increase lithium to 450mg PO BID. Athalia level <.58. Decrease Seroquel to 50mg PO SUBJECTIVE Assessment completed on 12/10/2024: I assessed the patient today in his room away from others to maintain privacy. He reports that "I'm fine". He takes a bit to wake up and sit up to speak with this provider. He one-words most responses. He reports his appetite is "fine" today. He denies depression and anxiety today. He denies SI/HI/AVH today and states, "Not today". He reports he has attended some groups. He reports side effects of sleeping too much throughout the day. Medication adherent. His main concerns today are the following: - none Per Nursing notes overnight: Assumed care of patient. He was awake resting on bed. He denies SI and HI, stating he just woke up and its hard to know yet. He denies current A/V hallucinations. He was medication complaint with all scheduled medications and had snack. Will continue too monitor on assault precautions and moderate suicide precautions via Q 6 minute safety checks. Denies nausea or HERNANDEZ at this time, had good relief from PRN's medications earlier in the day. 06 Patient appeared to sleep 8 hours. Klonopin 0.5 mg given per order. MEDICATIONS: Scheduled: aspirin 81 mg Daily Cerovite Jr 1 Tablet Daily ferrous sulfate 325 mg Every Other Day vitamin B-12 1,000 mcg Daily vitamin D2 ergocalciferol 50,000 Units Q7 Days QUEtiapine 100 mg At Bedtime OLANZapine 10 mg At Bedtime clonazePAM 0.5 mg 3x Daily lithium 300 mg 2x Daily famotidine 20 mg 2x Daily lamotrigine 150 mg 2x Daily metFORMIN 500 mg 2x Daily with Meals metoprolol 50 mg Daily pantoprazole 40 mg Daily 30 min before breakfast PRN: hydrOXYzine 25 mg 3x Daily PRN ondansetron 4 mg Q4H PRN acetaminophen 325 mg Q4H PRN acetaminophen 650 mg Q4H PRN acetaminophen 1,000 mg Q6H PRN polyethylene glycol 17 g Daily PRN OLANZapine 10 mg Q6H PRN Or OLANZapine 10 mg Q6H PRN Medication Adherence: Adherent per JAN. PRNs received in past 24hrs: None. See eMAR OBJECTIVE: - See below information Meds: adherent Groups: occasionally attending Social: improving slightly VITALS BP 114/74 (BP Location: left arm) Pulse 80 Temp 97.7 ???F (36.5 ???C) (Temporal) Resp 16 Ht 5' 8" (1.727 m) Wt 60.8 kg (134 lb) SpO2 100% BMI 20.37 kg/m??? MENTAL STATUS EXAM: 1. APPEARANCE: well groomed good hygiene appears stated age, wearing glasses and lying in bed. 2.BEHAVIOR: Calm Cooperative good eye contact 3. ORIENTATION: oriented to time, place and person. 4. SPEECH: clear, normal rate and flow, coherent, and goal-directed, one-wording often which leads to a limited assessment 5. THOUGHT PROCESS: logical, organized 6. THOUGHT CONTENT: PERCEPTION: no abnormal processes noted, denies visual hallucinations, denies suicidal thoughts or intention, denies homicidal thoughts or intention, Denies AVH today. DELUSIONS: no paranoia evident. No delusions noted SAFETY: Currently denies suicidal ideation, intent or plan, including self injurious behavior. Currently denies homicidal ideation, intent or plan. 7. ASSOCIATION: tight 8. JUDGMENT: good 9.INSIGHT: good - medication adherent 10. RECENT AND REMOTE MEMORY: good recent and remote recall, appear adequate to observation 11. ATTENTION SPAN AND CONCENTRATION: sustained 12. LANGUAGE: Appropriate, Normal verbal ability 13. FUND OF KNOWLEDGE: Okay 14. MOOD: feels "fine" 15. AFFECT: congruent 16: COGNITION: alert and oriented x 4 17: COPING SKILLS: okay - partially attending groups to develop 18: IMPULSE CONTROL:okay 19: DISTRESS TOLERANCE:okay 20: MUSCULOSKELETAL:Did not assess. Patient was found laying in bed. No ambulation visualized today. Labs: CBC 12/07/2024 7:56 PM WBC 10.8 RBC 3.81 Hgb 11.0 Hct 32.8 MCV 86 RDW 14.0 Plt 339 BMP (last 1 year, up to 8 values) 12/07/2024 7:56 PM Na 137 K 3.9 Cl 111 CO2 15 Gap 15 Glu 118 BUN 10 Cr 0.99 Ca 9.9 eGFR 76 Drug Screening/Utox: Positive for Amphetamines ECG Q-T interval: 479 Diagnostic Impression: Lily Quiroz ([place]) is a 34 year old adult transgender female to male who currently lives with sibling and is Unemployed on SSI. Patient was BIB self with suicidal thoughts and psychotic symptoms. Past Mhx is significant for insomnia,Afib, TD, Seizures until age 15. (more content not included)... Normal [facility] Care Plan Noteon 12-09-2024 Lye Boiler Authentication Interface Message Text Problem: Risk For Suicide: Goal: Remains safe during hospitalization Outcome: Progressing Goal: Ability to disclose and discuss suicidal ideas will improve and be maintained Outcome: Progressing Problem: Safety: Goal: Patient will remain free of falls during hospital stay Outcome: Progressing Goal: Free from injury during hospitalization Outcome: Progressing Problem: Ineffective Coping Strategies Goal: Arcadio will be able to identify their triggers. Outcome: Progressing Goal: Arcadio will be able to identify their negative coping mechanisms. Outcome: Progressing Goal: Arcadio will be able to identify positive coping mechanisms. Outcome: Progressing Problem: Thought Disorders Goal: LTG: Sustain symptom remission and continue the gains made during the acute phase of treatment Outcome: Progressing Goal: STG: Increase understanding of positive symptoms as evidenced by patient self-report Outcome: Progressing Goal: STG: Promote adherence to treatment regimen Outcome: Progressing Problem: Mood-Depression Goal: Stabilize mood and increase goal-directed behavior Outcome: Progressing Patient is observed to be out on the division and is keeping to himself. Patient denies any thoughts or intent of wanting to hurt himself or others at this time. Patient is endorsing visual hallucinations of "the sheets moving" and is denying and auditory hallucinations at this time. Patient is endorsing having auditory hallucinations earlier but tries to "block them out". Patient is endorsing having a migraine earlier this morning but the tylenol helped. Patient is calm, cooperative, and his behavior is in control. Patient is maintained on elopement, assault, and moderate suicide precautions. Patient is maintained on Q 6 minute safety checks. Patient is endorsing good sleep at this time. Patient is endorsing poor appetite due to not liking the food, but is taking boost with each meal. Normal [facility] Group Noteon 12-09-2024 Lye Boiler Authentication Interface Message Text Music, Art AND Film Group Session Group Date: 12/09/2024 Group Ratio: 6:1 Activity: Art/Craft: Watercolor Painting/ Coloring/ Open Art Goal: Encourage creative expression and positive coping. Patients were provided options to create projects using watercolor paint, pastels, and coloring pages to encourage creative expression while listening to music. Start time: 1330 End time: 1430 Lily Quiroz Good effort toward group participation. Patient chose to draw while listening to music. He shared his drawing with peers and staff. He explained that the drawing represented the negative voice in his head. No inappropriate behaviors. Anup Shaffer, Behavioral Health Specialist Normal [facility] LITHIUMon 12-09-2024 LI 0.58 mmol/L Low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 healthy communication between group participants; discuss and demonstrate using the body/physiology to tolerate distress. Activities/Therapeutic Interventions: DBT; group members discussed their thoughts and feelings about past emotional crises, identified warning signs such as thoughts, feelings, and behaviors associated with crisis. Provided brief psychoeducation about the activation of limbic system vs. the neocortex in the event of distress and using the central nervous system (parasympathetic response) to tolerate distress. Discussed TIP skill; based on engagement of group, outside plant supervisor offered to demonstrate paired muscle relaxation and group members declined to participate. Patient was informed that this provider is a psychology resident and operates under the supervision of Teresa Ugalde, PhD. Patient was informed that patient could request to meet with Dr. Ugalde at any time to address concerns or questions. Group Counseling Note - Individual Section Time Start: 1304 Time Finish: 1345 The patient was present for entire session Suicide Screener: C-SSRS Ritchie-Suicide Severity Rating Scale 1) Wish to be : Yes 2) Current suicidal thoughts: Yes 3) Suicidal thoughts w/ Method (w/no specific Plan or Intent or act): Yes 4) Suicidal Intent without Specific Plan: No 5) Intent with Plan: No 6) C-SSRS Suicidal Behavior: No Risk of Suicide: Moderate Risk SAFE-T SAFE-T Risk Factors Previous suicidal behavior: History of Prior Suicide Attempts Psychiatric diagnosis (current/past): Mood disorder;ADHD;Posttraum atic Stress Disorder Current symptoms: depressed mood;suicidal thoughts;homicidal thoughts;visual hallucinations;command hallucinations;hopeless ness Family History (suicide, attempts): None Precipitants/stressors/ interpersonal issues: none Change in treatment (recent discharge from hospital, medication/provider changes): provider or treatment change Access to firearms: No Current substance use: No Protective Factors External Protective Factors: Active Treatment for Mental Health;Family support Internal protective factors: Fear of dying Suicide Inquiry In the last month, how many times have you had suicidal thoughts?: Daily or almost daily In the last month, when you have had suicidal thoughts, how long do they last?: 1-4 hours/a lot of time In the last month, could/can you stop thinking about killing yourself or wanting to if you want to?: Can control thoughts with some difficulty In the last month, are there things - anyone or anything (i.e. family, scientology, pain of ) - that stopped you from wanting to or acting on thoughts of suicide?: Uncertain that deterrents stopped you Reason for ideation - Full question in Row Information: Equally to get attention, revenge or a reaction from others and to end/stop the pain Ideation Score Sum of Frequency, Duration, Controlability AND Deterrents: 16 Plan: none Behaviors: past attempts Intent: none Risk Level AND Recommendation Risk Level (MUST COMPLETE): Moderate Recommendations: suicide precautions;develop crisis plan;symptom reduction;other (see comments) (admission) Chief Complaint: Suicidal Ideation, Psychosis Patient was present for entire group; he was engaged and actively listening throughout; he provided insightful comments and inquiries pertaining to the definition of crisis as well as utilization of TIP skill. Patient did not endorse suicidal or homicidal ideation. MENTAL STATUS EXAMINATION: Appearance AND attitude: calm, cooperative, friendly, disheveled, tense. Mood: dysphoric. Affect: congruent. Speech: slow, with poor articulation. Thought form: logical, organized, with tight association. Thought content AND perception: no abnormal processes noted. Orientation: Oriented to time, person AND place. Memory AND attention: sustained. Judgment AND insight: fair Diagnosis: Unspecified Mood Disorder Unspecified schizophrenia spectrum and other psychotic disorder P/h Bipolar I Disorder, PTSD, ADHD, Other Specified Insomnia Disorder R/o Schizoaffective dis (more content not included)... Normal [facility] H AND Pietro 12-08-2024 Lye Boiler Authentication Interface Message Text Hospital Medicine H AND P CHIEF COMPLAINT/Reason for admission: Lily Quiroz is a 34 year old adult admitted to [facility]. I am performing the medical H AND P for this inpatient psychiatric admission. HPI: Patient reports no complaints. Patient does report that she has a history of atrial fibrillation. She states that she is not on blood thinners, she only takes baby aspirin. She also is on metoprolol but she is unsure of the dose. She states that afebrile since her family and she inherited. Currently denies any fever, chills, chest pain, palpitations, or any other abnormal symptoms. No past medical history on file. No past surgical history on file. No current facility-administered medications on file prior to encounter. Current Outpatient Medications on File Prior to Encounter Medication Sig Dispense Refill clonazePAM (KlonoPIN) 1 MG tablet Take 1-2 mg by mouth 2 times daily as needed for Anxiety. famotidine (PEPCID) 20 MG tablet Take 20 mg by mouth 2 times daily. lithium carbonate (LITHOBID) 300 MG CR tablet Take 600 mg by mouth at bedtime. metoprolol (TOPROL-XL) 50 mg XL tablet Take 50 mg by mouth daily. QUEtiapine (SEROQUEL XR) 200 MG 24 hour tablet Take 200 mg by mouth daily. Tetrabenazine 12.5 MG TABS Take 12.5 mg by mouth 2 times daily. topiramate (TOPAMAX) 25 MG tablet Take 25 mg by mouth daily. topiramate (TOPAMAX) 100 MG tablet Take 100 mg by mouth at bedtime. lamotrigine (LAMICTAL) 150 MG tablet Take 1 Tablet by mouth 2 times daily. pantoprazole (PROTONIX) 40 MG tablet Take 40 mg by mouth daily. metFORMIN (GLUCOPHAGE) 500 MG tablet Take 1 Tablet by mouth 2 times daily (with meals). amphet-dextroamphet (ADDERALL XR) 30 MG ER capsule Take 30 mg by mouth 2 times daily. aspirin EC 81 MG tablet Take 81 mg by mouth daily. Allergies: Abilify [aripiprazole] and Haldol [haloperidol] Social History: Social History Tobacco Use Smoking status: Not on file Smokeless tobacco: Not on file Substance Use Topics Alcohol use: Not on file Alcohol Hx: Yes Substance use hx: Yes Tobacco Use: Denies Review Of Systems: Gen: negative Skin: negative Eyes: negative review of symptoms Ears/Nose/Throat: negative Respiratory: negative symptoms (no cough, hemoptysis, SOB, ALVES, PND, wheezing) Cardiovascular: negative symptoms (No CP/Pressure/Tightness, palpitations, orthopnea, PND, SOB, ALVES, edema, HERNANDEZ or vision change) Gastrointestinal: negative symptoms (no abdominal pain, anorexia, n/v, indigestion, constipation, or diarrhea) Genitourinary: no urinary symptoms Neurologic: negative symptoms (no syncope, seizures, weakness, gait problems, numbness, burning pain, tremors, or memory loss) Hematologic/Lymphatic/I mmunologic: negative (no anemia, bleeding, bruising) Endocrine: negative review of symptoms Physical Exam: BP 124/79 (BP Location: right arm) Pulse 81 Temp 96.6 ???F (35.9 ???C) (Temporal) Resp 16 Ht 5' 8" (1.727 m) Wt 134 lb (60.8 kg) SpO2 100% BMI 20.37 kg/m??? General: Alert, no distress, cooperative Skin: Skin texture and tugor normal. No rash or lesions HEENT: No oropharyngeal lesions, no obvious dental infections, no loose teeth Neck: No carotid bruit, JVD, lymphadenopathy or goiter Heart: Normal S1/S2, no murmurs/gallops/rubs Lungs: Lungs clear to auscultation. Good air entry bilaterally Abdomen: Abdomen soft and non-tender. BS normal No masses or organomegaly. Extremities: Extremities normal. No deformities, edema, clubbing or discoloration. Neurologic: Alert and Oriented x 3 Cranial nerves: (II, III, IV, ) Visual ball intact to confrontation. Pupils are round, reactive to light and accommodation. Extraocular movements are intact to visual pursuit in all directions. (V) Facial sensation is intact to bilateral light touch. (VII) Facial muscle strength is normal and equal bilaterally (eyebrow raise, eye closing, smile, nasolabial fold appearance). (VIII) Hearing intact to finger rub or normal speaking voice bilaterally. (IX, X) Palate and uvula elevate symmetrically. Voice is normal. (XI) Shoulder shrug strong, and equal bilaterally. (XII) Tongue protrudes midline and moves symmetrically Motor Strength bilateral upper and lower extremities normal Gait is normal Coordination is normal Sensation to light touch of the bilateral upper and lower extremities is intact DTR's 2+ patellar and biceps bilaterally The patient cooperated fully with the physical exam Data (personally reviewed) Labwork CBC is notable for mild anemia, BMP is notable for high glucose and chloride, and tox screen is notable for amphetamines . Imaging None. EKG is notable for Normal Sinus Rhythm Assessment AND Plan Bipolar 1 disorder (HCC) As per psych Atrial fibrillation (HCC) Patient with hx of paroxysmal afib States that he sees EP as OP Not on blood thinners due to low chadvasc EKG sinus rhythm (more content not included)... Normal [facility] [employer] Authentication Interface Message Text Attestation signed by Jose Ro MD at 12/08/2024 4:55 PM SPLIT/SHARED DOCUMENTATION I approve the management plan for this patient and take responsibility for the plan as documented. Teaching Physician Note This is a split/shared encounter. I saw and personally evaluated Lily Quiroz, obtained the substantive and critical portion of the history and confirmed the burr portions of the patient's mental status examination, diagnosis and treatment. I reviewed the Nurse practitioner's documentation and discussed the patients presentation and plan with the practitioner. Medical decision making has been taken by me as documented in the nurse practitioner's note and as edited above by me. Jose Ro MD, PhD Staff Psychiatrist. PSYCHIATRY MENTAL HEALTH ASSESSMENT - ADULT PSYCHIATRY I. IDENTIFICATION: Lily Quiroz is a 34 year old White transgender female to male adult. He is . Occupation: unemployed and on SSI. Patient seen with team (CHARITY, Dr. Ro, FLORAL ARRANGER). II. HISTORY OF PRESENT ILLNESS: Patient with a history of bipolar 1 disorder, Tardive dyskinesia, ADHD, PTSD who was brought/referred by self for SI and psychotic symptoms. Stressors / Circumstances: recent medication changes and housing instability. Per ED interview: Lily Quiroz is a 34 year old male seen in consultation for medical clearance for psychiatric admission. Pt reports has hx of afib, on aspirin and metoprolol. And some other chronic conditions. Reports had some blood work at [facility] a few weeks ago that may have been abnormal. Review of External (Non- ED) Notes: Labs from [facility] reviewed and show in October pt hgb around 11 and so was WBC count. Discussion with External Provider: Race Steward from psych service recommends psych admission for psychosis Medication Management: clear to continue home list of medications as is Independent Test Interpretation: Lab studies reviewed, cbc with stable mild anemia, no leukocytosis, ck normal, lfts normal, bmp without nae, etoh neg, ua without infxn ASSESSMENT AND RECOMMENDATIONS: Continue home medication list. No changes needed The patient has had a focused medical assessment and is medically appropriate for further evaluation and management by psychiatry. These findings have been relayed to the primary team. Ariel Villeda MD Per Psych ED consult: Patient was tearful. Patient states he has been having psychotic episode for the 1st time since 2 months ago. States that there was a week of "blackouts". Patient states that he has been hearing voices, having visual hallucinations, having delusions of reference. States he thought his doctor was trying to harm him and spent 20 hours on [employer] trying to figure out what is going on. Patient states she sees Dr. Peterson for outpatient who told patient to come in today or he would pink slip him because patient was having command auditory hallucination, suicidal ideation and homicidal ideation towards his brother. Patient states that he identifies as trans gender male and goes by Db. Patient states that he was living with his mother, but has 5 brothers, who made arrangements for her to move in with 1 of the brothers, but that brother did not realize that this arrangement was permanent and wanted her out. Patient does not know where he will go after this. And would like resources for housing. Patient states that he has tried "almost every antipsychotic", Invega gave him TD and he has been on tetrabenazine with mild improvement. He also tried Risperdal (increased prolactin), allergic to abilify rexulti haldol (rash), states that higher doses of Seroquel gave her Parkinson's symptoms. Patient states that he has been having a lot of visual hallucinations, has been seeing objects moving such as the towels on a rack and thinks that they have personality. Does not have any SI right now but had them earlier today. Patient also states that he has not being eating or drinking, has not been able to care for self much. Patient was agreeable to admission. Per chart review/Care Everywhere Extensive psych hx with , OP provider Dr. Peterson at Most recent visit 12/07/24 (today) Lily Sotelo" is a 34 y.o. transgender male domiciled with family, on disability who presents for follow up with CC of Bipolar, PTSD (Post-Traumatic Stress Disorder), ADHD, Insomnia, and tardive dyskinesia. Pt is experiencing psychosis while taking quetiapine ER 150mg. Increased yesterday to 200mg but pt's psychosis and loss of functioning has worsened. Recommended pt go to ED for admission in attempt to stabilize psychosis. While pt could be pink-slipped on basis of inability to care for self (loss of ADLs) and recent CAH with [facility] pt was amenable to going in volunt (more content not included)... Normal [facility] HEPATITIS B CORE ANTIBODYon 12-08-2024 CORE Non-Reactive Normal Nonreactive [facility] Comment on above: Performed By: #### A NTI-HBS, CORE #### [facility] [address], [place], HEPATITIS B SURFACE ANTIBODY on 12-08-2024 ANTI-HBS < 3.1 Normal [facility] Comment on above: Order Comment: Nonre active: Samples < 7.5 mIU/mL Reactive: Samples >/= 10.0 mIU/mL The accepted criteria for immunity to HBV is anti-HBs activity >/= 10 mIU/mL, as defined by the WHO International Reference Preparation. Performed By: #### A NTI-HBS, CORE #### [facility] [address], [place], HEPATITIS C ANTIBODYon 12-08 HCV Non-Reactive Normal Nonreactive [facility] Comment on above: Performed By: #### A NTI-HBS, CORE #### [facility] [address], [place], HIV 1 and 2 Ab and HIV 1 p24 Ag panel IAon 12-08-2024 HIV AG-AB SCREEN Non-Reactive Normal Non-Reactive [facility] Comment on above: Order Comment: HIV I nformation: ???[place] Rev. code 3701.243(E):This information has been disclosed to you from confidential records protected from disclosure by state law. ???You shall make no further disclosure of this information without the specific, written, and informed release of the individual to whom it pertains, or as otherwise permitted by state law. ???A general authorization for the release of medical or other information is not sufficient for the purpose of the release of HIV test results or diagnoses. Result Comment: No l aboratory evidence for HIV Infection. Negative result does not rule out acute HIV infection. If acute HIV infection is suspected, recommend ordering an HIV-1 RNA quanitification test. Performed By: #### [id number] ####S PATHOLOGY [id number] [place], [place], Progress Noteson 12-08-2024 Lye Boiler Authentication Interface Message Text Arcadio is aware that he is being transferred to 3A. New medications administered prior to transfer. Report given to Reza. Patient transferred to 3A via wheelchair and PSA escort. Normal [facility] Lye Boiler Authentication Interface Message Text Assumed care of this patient this morning. Awake, resting in bed. Skin warm and dry. Color pale. Conversation appropriate. Denies pain or discomfort. Denies auditory/visual hallucinations. Denies SI/HI. 96.6-81-16-124/79-100% RA. In the dining room for breakfast, appetite fair. Medication compliant. Attended group this morning. Q 6 minute safety checks maintained. Escape/Assault/Suicide precautions maintained. Normal [facility] Lye Boiler Authentication Interface Message Text Patient admitted VOL to unit [facility] 1B from [facility] on 12/08/2024 @ 0146 for suicidal ideation with multiple plans and increase psychotic symptoms related to recent medication changes. Patient current stressors are decreased social interactions, losing tought with friends that express difficulty accpeting patient's mental health issues, housing instability having recently moved from their parents' home to live with a brother who was unaware that the move was intended as permanent. Pt A AND Ox4 Patient presenting Behavior: cooperative, appropriate, anxious Pt Chief Complaint: psychosis, suicidal ideation, and command AH" Pt Goal: "medication adjustments and relief of psychotic symptoms" SI: endorses Plan: multiple Hx: SA, OD on Klonopin RX Access to weapons: denies Depression: 08/24 Anxiety: 08/24 States anxiety and depression are related to, "housing instability, psychosis, socail stressors" HI: none stated AVH: endorses UTOX: amphetamines, Adderall RX ETOH: negative HCG: negative Medical: HX of a-fib, tardive dyskinesia, diabetes Patient is concerned about withdrawal from Klonopin. Last dose 12/07 1800. Patient also inquired about whether Adderall will be restarted while in-patient. They would also like to have an order for a water pitcher, stating they they drink a lot of water and do not want to be a bother when asking for refill frequently. Patient also stated that they would like to be able to have a stuffed animal while in-patient. This RN encouraged patient to speak with their provider directly for these requests but will pass the information along to day staff. Patient oriented to unit, given snack, and went to room with no issues or signs of distress. Maintain Q6M with Assault, Elopement, Suicide precautions and encouraging pt to express needs. Normal [facility] SYPHILIS TOTAL/TPPAon 2024 SYPHILIS TOTAL (IGG/IGM) Non-Reactive Normal Non-Reactive [facility] Comment on above: Order Comment: No re sults found for: "TPPA"No components found for: "FTA"No serologic evidence of syphilis.If recent exposure/early infection is suspected, repeat testing in 2-4 weeks. Performed By: #### A NTI-HBS, CORE #### S PATHOLOGY LABORATORY [address] [place] [address], TPPA Normal [facility] Comment on above: Order Comment: No re sults found for: "TPPA"No components found for: "FTA"No serologic evidence of syphilis.If recent exposure/early infection is suspected, repeat testing in 2-4 weeks. Performed By: #### A NTI-HBS, CORE #### S [facility]ORY [address] [place] [address], VITAMIN B12 (CYANOCOBALAMIN) on 12-08-2024 Cobalamin (Vitamin B12) [Mass/Vol] 128 pg/mL Low 180-914 [facility] Comment on above: Order Comment: Defic ient: <= 145 pg/mL Insufficient: 145 - 180 pg/mL Sufficient: 180 - 914 pg/mL Performed By: #### H DL, VITB12 #### [facility] [address] [place] [address], VITAMIN D, 25-HYDROXYon 11-16 VITD25 10.3 ng/mL Low 30-100 [facility] Comment on above: Order Comment: Defic ient : <20.0 ng/mLInsufficient : 20.0-29.9 ng/mLSufficient : 30.0 - 100.0 ng/mLPotential Toxicity : >100.0 ng/mL Performed By: #### A NTI-HBS, CORE #### [facility] [address] [place] [address], BASIC METABOLIC PANELon 11-16 Anion gap [Moles/Vol] 15 mmol/L Normal 10-20 [facility] Comment on above: Performed By: #### H EPATIC, ETOH, CH8 ####[facility] [address] [place], [address] Calcium [Mass/Vol] 9.9 mg/dL Normal 8.6-10.3 [facility] Comment on above: Performed By: #### H EPATIC, ETOH, CH8 ####[facility] [address] [place], [address] Chloride [Moles/Vol] 111 mmol/L High 98-107 [facility] Comment on above: Performed By: #### H EPATIC, ETOH, CH8 ####[facility] [address] [place], [address] CO2 [Moles/Vol] 15 mmol/L Low 21-31 [facility] Comment on above: Performed By: #### H EPATIC, ETOH, CH8 ####[facility] [address] [place], [address] Creatinine [Mass/Vol] 0.99 mg/dL Normal 0.60-1.20 [facility] Comment on above: Performed By: #### H EPATIC, ETOH, CH8 ####[facility] [address] [place], [address] ESTIMATED GFR (CKD-EPI) 76 mL/min/1.73sqm Normal >=60 [facility] Comment on above: Result Comment: 2020 CKD EPI Equation using Creatinine without Race Comment: Estimated glomerular filtration rate (eGFR) is calculated without a race coefficient. Values should be interpreted in the context of the patient's full clinical presentation. Reference: 1. Brian C, Stevenson M, Rony RILEY, et al.. A Unifying Approach for GFR Estimation: Recommendations of the NKF-ASN Task Force on Reassessing the Inclusion of Race in Diagnosing Kidney Disease. Japanese Journal of Kidney Diseases 2021;79(2):268-88.e1. 2. N Engl J Med 1 Vol. 385 Issue 19 Pages 0364-1156 Performed By: #### H EPATIC, ETOH, CH8 ####[facility] [address] [place], [address] Glucose [Mass/Vol] 118 mg/dL High 74-109 [facility] Comment on above: Performed By: #### H MARYLOU POLANCO, CH8 ####[facility] [address] [place], [address] Potassium [Moles/Vol] 3.9 mmol/L Normal 3.5-5.0 [facility] Comment on above: Performed By: #### H MARYLOU POLANCO, CH8 ####[facility] [address] [place], [address] Sodium [Moles/Vol] 137 mmol/L Normal 136-145 [facility] Comment on above: Performed By: #### H MARYLOU POLANCO, CH8 ####[facility] [address] [place], [address] Urea nitrogen [Mass/Vol] 10 mg/dL Normal 7-25 [facility] Comment on above: Performed By: #### H MARYLOU POLANCO, CH8 ####[facility] [address] [place], [address] CBC WITH DIFFERENTIALon -2 -2024 Basophils (Bld) [#/Vol] 0.10 10*3/uL Normal 0.00-0.20 [facility] Comment on above: Performed By: #### A NTI-HBS, CORE #### [facility] PATH[facility] [address], [place], Basophils/100 WBC (Bld) 0.9 % Normal <=1.9 [facility] Comment on above: Performed By: #### A NTI-HBS, CORE #### [facility] [address], [place], Eosinophils (Bld) [#/Vol] 0.40 10*3/uL Normal 0.00-0.70 [facility] Comment on above: Performed By: #### A NTI-HBS, CORE #### [facility] [address], [place], Eosinophils/100 WBC (Bld) 3.4 % Normal 0.1-4.0 [facility] Comment on above: Performed By: #### A NTI-HBS, CORE #### S PATHOLOGY LABORATORY [address] [place] [address], Erythrocyte distribution width (RBC) [Ratio] 14.0 % Normal 11.5-14.5 [facility] Comment on above: Performed By: #### A NTI-HBS, CORE #### [facility] [address] [place] [address], Hematocrit (Bld) [Volume fraction] 32.8 % Low 36.0-46.0 [facility] Comment on above: Performed By: #### A NTI-HBS, CORE #### [facility] [address] [place] [address], Hemoglobin (Bld) [Mass/Vol] 11.0 g/dL Low 12.0-15.0 [facility] Comment on above: Performed By: #### A NTI-HBS, CORE #### S [facility] [address] [place] [address], Lymphocytes (Bld) [#/Vol] 2.80 10*3/uL Normal 1.00-4.80 [facility] Comment on above: Performed By: #### A NTI-HBS, CORE #### [facility] [address] [place] [address], Lymphocytes/100 WBC (Bld) 25.9 % Normal 24.0-44.0 [facility] Comment on above: Performed By: #### A NTI-HBS, CORE #### [facility] [address] [place] [address], MCH (RBC) [Entitic mass] 28.9 pg Normal 26.0-34.0 [facility] Comment on above: Performed By: #### A NTI-HBS, CORE #### [facility] [address] [place] [address], MCHC (RBC) [Mass/Vol] 33.5 g/dL Normal 32.0-35.9 [facility] Comment on above: Performed By: #### A NTI-HBS, CORE #### [facility] [address] [place] [address], MCV (RBC) [Entitic vol] 86 fL Normal 80-100 T [facility] Comment on above: Performed By: #### A NTI-HBS, CORE #### [facility] [address] [place] [address], Monocytes (Bld) [#/Vol] 0.90 10*3/uL Normal 0.20-1.00 [facility] Comment on above: Performed By: #### A NTI-HBS, CORE #### [facility] [address] [place] [address], Monocytes/100 WBC (Bld) 8.2 % Normal 2.0-11.0 T [facility] Comment on above: Performed By: #### A NTI-HBS, CORE #### S PATHOLOGY LABORATORY [address] [place] [address], Neutrophils (Bld) [#/Vol] 6.60 10*3/uL Normal 1.50-8.00 [facility] Comment on above: Performed By: #### A NTI-HBS, CORE #### S PATHOLOGY LABORATORY [address] [place] [address], Neutrophils/100 WBC (Bld) 61.6 % Normal 31.0-76.0 [facility] Comment on above: Performed By: #### A NTI-HBS, CORE #### S [facility] LAB[facility] [address] [place] [address], Nucleated RBC (Bld) [#/Vol] 10*3/uL Normal [facility] Comment on above: Performed By: #### A NTI-HBS, CORE #### S PATHOLOGY LABORATORY [address], [place], Nucleated RBC (Bld) [#/Vol] 0.00 10*3/uL Normal [facility] Comment on above: Performed By: #### A NTI-HBS, CORE #### S [facility] LAB[facility]ATORY [address] [place] [address], Platelet mean volume (Bld) [Entitic vol] 9.2 fL Normal 7.5-11.2 [facility] Comment on above: Performed By: #### A NTI-HBS, CORE #### [facility] [address], [place], Platelets (Bld) [#/Vol] 339 10*3/uL Normal 150-400 [facility] Comment on above: Performed By: #### A NTI-HBS, CORE #### [facility] [address], [place], RBC (Bld) [#/Vol] 3.81 10*6/uL Low 4.00-5.20 [facility] Comment on above: Performed By: #### A NTI-HBS, CORE #### [facility] [address] [place], [place], WBC (Bld) [#/Vol] 10.8 10*3/uL Normal 4.5-11.5 [facility] Comment on above: Performed By: #### A NTI-HBS, CORE #### [facility] [address] [place] [address], CREATINE KINASEon 12-07-2024 CK [Catalytic activity/Vol] 56 U/L Normal 30-233 [facility] Comment on above: Performed By: #### A NTI-HBS, CORE #### [facility] [address], [place], ED Provider Noteson 12-07-19 Lye Boiler Authentication Interface Message Text PSYCHIATRIC EMERGENCY DEPARTMENT Initial Encounter 12/07/24 Appointment Start Time: 8:17 PM IDENTIFICATION: Lily Quiroz is a 34 year old White adult. Patient seen alone. HISTORY OF PRESENT ILLNESS: Patient with a history of bipolar 1 disorder, Tardive dyskinesia, ADHD, PTSD who was brought/referred by self for SI and psychotic symptoms. Stressors / Circumstances: recent medication changes and housing instability. On Interview: Patient was tearful. Patient states he has been having psychotic episode for the 1st time since 2 months ago. States that there was a week of "blackouts". Patient states that he has been hearing voices, having visual hallucinations, having delusions of reference. States he thought his doctor was trying to harm him and spent 20 hours on [employer] trying to figure out what is going on. Patient states she sees Dr. Peterson for outpatient who told patient to come in today or he would pink slip him because patient was having command auditory hallucination, suicidal ideation and homicidal ideation towards his brother. Patient states that he identifies as trans gender male and goes by Db. Patient states that he was living with his mother, but has 5 brothers, who made arrangements for her to move in with 1 of the brothers, but that brother did not realize that this arrangement was permanent and wanted her out. Patient does not know where he will go after this. And would like resources for housing. Patient states that he has tried "almost every antipsychotic", Invega gave him TD and he has been on tetrabenazine with mild improvement. He also tried Risperdal (increased prolactin), allergic to abilify, rexulti, haldol (rash), states that higher doses of Seroquel gave her Parkinson's symptoms. Patient states that he has been having a lot of visual hallucinations, has been seeing objects moving such as the towels on a rack and thinks that they have personality. Does not have any SI right now but had them earlier today. Patient also states that he has not being eating or drinking, has not been able to care for self much. Patient was agreeable to admission. Per Chart Review/Care Everywhere: Extensive psych hx with , OP provider Dr. Peterson at Most recent visit 12/07/24 (today) Lily Sotelo" is a 34 y.o. transgender male domiciled with family, on disability who presents for follow up with CC of Bipolar, PTSD (Post-Traumatic Stress Disorder), ADHD, Insomnia, and tardive dyskinesia. Pt is experiencing psychosis while taking quetiapine ER 150mg. Increased yesterday to 200mg but pt's psychosis and loss of functioning has worsened. Recommended pt go to ED for admission in attempt to stabilize psychosis. While pt could be pink-slipped on basis of inability to care for self (loss of ADLs) and recent CAH with HI pt was amenable to going in voluntarily. Plan: Bipolar d/o - quetiapine ER 200mg, continue lithium 600mg at bedtime (lvl 0.8), c/w lamotrigine 150mg BID, topiramate 25mg qAM and 100mg qhs PTSD/anxiety - clonazepam 1.5mg daily PRN panic, c/w med ed, psycho ed, supportive psychotherapy, f/u 4 weeks ADHD - adderall XR 30mg daily Insomnia - c/w quetiapine 50mg at bedtime prn Hyperthyroid - working with endo TD - tetrabenazine 12.5mg BID 11/12/24 [facility] ED for manic sx Lily Quiroz is a 34 year old adult brought in to [facility] from Home by family for manic symptoms. Patient has a PPH of Bipolar disorder, PTSD, insomnia and TD. Has had multiple inpatient psychiatric admissions for symptom management. Patient is unable to take antipsychotics secondary to TD. They have been being treated by Doctor Adriana Mccallum for several years and was recently prescribed Abilify after thir virtual appointment on November 01 which they had an allergic reaction to. Patient unable to reach their Doctor due to the holidays and therefore came to the Emergency Department for advice. Their next appointment is scheduled for December 12, 2024. Patient was medically cleared and psychiatric evaluation requested. Toxicology screen positive for amphetamines. Patient is prescribed adderall. [place] reviewed Patient's [place] records are available under Susy Quiro[place] [id number] Adderall ER and Klonopin Rx REVIEW OF PAST AND PRESENT SYMPTOMS: Depressive Sx: depressed mood, feeling of helplessness, thoughts of AND suicide. Manic Sx: denies. Psychotic Sx: decreased self care, auditory hallucinations, visual hallucination, delusional preoccupation: delusion of reference. DIONE Sx: denies. Panic Disorder Sx: denies OCD Sx: denies. Symptoms of PTSD: denies. Borderline denies. Child Psych Disorders: denies SUICIDE ASSESSMENT: C-SSRS Ritchie-Suicide Severity Rating Scale 1) Wish to be : Yes 2) Current suicidal thoughts: Yes 3) Suicidal thoughts w/ Method (w/no specific Plan or Intent or act): Yes 4 (more content not included)... Normal [facility] Triage Noteson 12-07-2024 Lye Boiler Authentication Interface Message Text Pt Brought herself in. PT states that she is having thoughts of harming herself, she states that she doesn't have a specific plan she just has random thoughts in ways to do it " pills or gun" Pt denies HI . When asked does she feel safe at home she states that she doesn't really have a home right now because she just moved from her brothers house to her other brothers house and he doesn't really want her there but he's not going to kick her out. Normal [facility] ETHANOL, SERUMon 12-07-2024 Ethanol [Mass/Vol] mg/dL Normal None Detected [facility] Comment on above: Performed By: #### H EPATIC, ETOH, CH8 ####[facility] [address] [place], [address] HCG URINEon 12-07-2024 Beta HCG ( test) Ql (U) Negative Normal Negative [facility] Comment on above: Performed By: #### U R BETA #### [facility] [address] [place], [address] HEPATIC FUNCTION PANELon Albumin [Mass/Vol] 4.6 g/dL Normal 3.5-5.7 [facility] Comment on above: Performed By: #### H EPATIC, ETOH, CH8 #### [facility] [address] [place], [address] ALK 70 IU/L Normal 34-104 [facility] Comment on above: Performed By: #### H EPATIC, ETOH, CH8 #### [facility] [address] [place], [address] ALT [Catalytic activity/Vol] 8 U/L Normal 7-52 [facility] Comment on above: Performed By: #### H EPATIC, ETOH, CH8 #### [facility] [address] [place], [address] AST [Catalytic activity/Vol] 9 U/L Low 13-39 [facility] Comment on above: Performed By: #### H EPATIC, ETOH, CH8 #### [facility] [address] [place], [address] Bilirubin [Mass/Vol] 0.5 mg/dL Normal 0.3-1.0 [facility] Comment on above: Performed By: #### H EPATIC, ETOH, CH8 #### [facility] [address] [place], [address] Bilirubin.direct [Mass/Vol] 0.07 mg/dL Normal 0.03-0.18 [facility] Comment on above: Performed By: #### H EPATIC, ETOH, CH8 #### [facility] [address] [place], [address] Protein [Mass/Vol] 6.8 g/dL Normal 6.0-8.3 [facility] Comment on above: Performed By: #### H EPATIC, ETOH, CH8 #### [facility] [address] [place] [address], [address] TOXICOLOGY SCREEN, UNCONFIRM EDon 12-07-2024 AMPH Positive Abnormal Negative [facility] Comment on above: Order Comment: This toxicology screen provides unconfirmed analytical results suitable for clinical management. Results are reported as positive (at or above the cutoff) or negative (below the cutoff). Amphetamines 1000 ng/mL Barbiturates 200 ng/mL Methadone 300 ng/mL Opiates 300 ng/mL Oxycodone 100 ng/mL Fentanyl 1 ng/mL Hydrocodone 100 ng/mL Benzodiazepines 200 ng/mL Cocaine Metabolite 300 ng/mL PCP 25 ng/mL THC 50 ng/mL Buprenorphine 5 ng/mL Alcohol 10 mg/dL Performed By: #### T OX SC ####[facility] [address] [place] [address], [id number] BARBIT Negative Normal Negative [facility] Comment on above: Order Comment: This toxicology screen provides unconfirmed analytical results suitable for clinical management. Results are reported as positive (at or above the cutoff) or negative (below the cutoff). Amphetamines 1000 ng/mL Barbiturates 200 ng/mL Methadone 300 ng/mL Opiates 300 ng/mL Oxycodone 100 ng/mL Fentanyl 1 ng/mL Hydrocodone 100 ng/mL Benzodiazepines 200 ng/mL Cocaine Metabolite 300 ng/mL PCP 25 ng/mL THC 50 ng/mL Buprenorphine 5 ng/mL Alcohol 10 mg/dL Performed By: #### T OX SC ####[facility] [address] [place], [address] BENZO Negative Normal Negative [facility] Comment on above: Order Comment: This toxicology screen provides unconfirmed analytical results suitable for clinical management. Results are reported as positive (at or above the cutoff) or negative (below the cutoff). Amphetamines 1000 ng/mL Barbiturates 200 ng/mL Methadone 300 ng/mL Opiates 300 ng/mL Oxycodone 100 ng/mL Fentanyl 1 ng/mL Hydrocodone 100 ng/mL Benzodiazepines 200 ng/mL Cocaine Metabolite 300 ng/mL PCP 25 ng/mL THC 50 ng/mL Buprenorphine 5 ng/mL Alcohol 10 mg/dL Performed By: #### T OX SC ####[facility] [address], [place], [facility] BUPRENORPHINE Negative Normal Cutoff: 5 [facility] Comment on above: Order Comment: This toxicology screen provides unconfirmed analytical results suitable for clinical management. Results are reported as positive (at or above the cutoff) or negative (below the cutoff). Amphetamines 1000 ng/mL Barbiturates 200 ng/mL Methadone 300 ng/mL Opiates 300 ng/mL Oxycodone 100 ng/mL Fentanyl 1 ng/mL Hydrocodone 100 ng/mL Benzodiazepines 200 ng/mL Cocaine Metabolite 300 ng/mL PCP 25 ng/mL THC 50 ng/mL Buprenorphine 5 ng/mL Alcohol 10 mg/dL Performed By: #### T OX SC ####[facility] [address] [place], [address] COCAINE CL Negative Normal Negative [facility] Comment on above: Order Comment: This toxicology screen provides unconfirmed analytical results suitable for clinical management. Results are reported as positive (at or above the cutoff) or negative (below the cutoff). Amphetamines 1000 ng/mL Barbiturates 200 ng/mL Methadone 300 ng/mL Opiates 300 ng/mL Oxycodone 100 ng/mL Fentanyl 1 ng/mL Hydrocodone 100 ng/mL Benzodiazepines 200 ng/mL Cocaine Metabolite 300 ng/mL PCP 25 ng/mL THC 50 ng/mL Buprenorphine 5 ng/mL Alcohol 10 mg/dL Performed By: #### T OX SC ####[facility] [address] [place], [address] Ethanol [Mass/Vol] Negative Normal Cutoff: 1 0 mg/dL [facility] Comment on above: Order Comment: This toxicology screen provides unconfirmed analytical results suitable for clinical management. Results are reported as positive (at or above the cutoff) or negative (below the cutoff). Amphetamines 1000 ng/mL Barbiturates 200 ng/mL Methadone 300 ng/mL Opiates 300 ng/mL Oxycodone 100 ng/mL Fentanyl 1 ng/mL Hydrocodone 100 ng/mL Benzodiazepines 200 ng/mL Cocaine Metabolite 300 ng/mL PCP 25 ng/mL THC 50 ng/mL Buprenorphine 5 ng/mL Alcohol 10 mg/dL Performed By: #### T OX SC ####[facility] [address] [place] [address], [id number] FENTANYL Negative Normal Negative [facility] Comment on above: Order Comment: This toxicology screen provides unconfirmed analytical results suitable for clinical management. Results are reported as positive (at or above the cutoff) or negative (below the cutoff). Amphetamines 1000 ng/mL Barbiturates 200 ng/mL Methadone 300 ng/mL Opiates 300 ng/mL Oxycodone 100 ng/mL Fentanyl 1 ng/mL Hydrocodone 100 ng/mL Benzodiazepines 200 ng/mL Cocaine Metabolite 300 ng/mL PCP 25 ng/mL THC 50 ng/mL Buprenorphine 5 ng/mL Alcohol 10 mg/dL Performed By: #### T OX SC ####[facility] [address] [place] [address], [id number] HYDROCODONE (PM) Negative Normal Negative [facility] Comment on above: Order Comment: This toxicology screen provides unconfirmed analytical results suitable for clinical management. Results are reported as positive (at or above the cutoff) or negative (below the cutoff). Amphetamines 1000 ng/mL Barbiturates 200 ng/mL Methadone 300 ng/mL Opiates 300 ng/mL Oxycodone 100 ng/mL Fentanyl 1 ng/mL Hydrocodone 100 ng/mL Benzodiazepines 200 ng/mL Cocaine Metabolite 300 ng/mL PCP 25 ng/mL THC 50 ng/mL Buprenorphine 5 ng/mL Alcohol 10 mg/dL Performed By: #### T OX SC ####[facility] [address] [place] [address], [id number] Methadone Ql (U) Negative Normal Negative [facility] Comment on above: Order Comment: This toxicology screen provides unconfirmed analytical results suitable for clinical management. Results are reported as positive (at or above the cutoff) or negative (below the cutoff). Amphetamines 1000 ng/mL Barbiturates 200 ng/mL Methadone 300 ng/mL Opiates 300 ng/mL Oxycodone 100 ng/mL Fentanyl 1 ng/mL Hydrocodone 100 ng/mL Benzodiazepines 200 ng/mL Cocaine Metabolite 300 ng/mL PCP 25 ng/mL THC 50 ng/mL Buprenorphine 5 ng/mL Alcohol 10 mg/dL Performed By: #### T OX SC ####[facility] [address] [place], [place] [id number] OPIATE Negative Normal Negative [facility] Comment on above: Order Comment: This toxicology screen provides unconfirmed analytical results suitable for clinical management. Results are reported as positive (at or above the cutoff) or negative (below the cutoff). Amphetamines 1000 ng/mL Barbiturates 200 ng/mL Methadone 300 ng/mL Opiates 300 ng/mL Oxycodone 100 ng/mL Fentanyl 1 ng/mL Hydrocodone 100 ng/mL Benzodiazepines 200 ng/mL Cocaine Metabolite 300 ng/mL PCP 25 ng/mL THC 50 ng/mL Buprenorphine 5 ng/mL Alcohol 10 mg/dL Performed By: #### T OX SC ####[facility] [address] [place] [address], [id number] OXYCODONE Negative Normal Cutoff: 100 [facility] Comment on above: Order Comment: This toxicology screen provides unconfirmed analytical results suitable for clinical management. Results are reported as positive (at or above the cutoff) or negative (below the cutoff). Amphetamines 1000 ng/mL Barbiturates 200 ng/mL Methadone 300 ng/mL Opiates 300 ng/mL Oxycodone 100 ng/mL Fentanyl 1 ng/mL Hydrocodone 100 ng/mL Benzodiazepines 200 ng/mL Cocaine Metabolite 300 ng/mL PCP 25 ng/mL THC 50 ng/mL Buprenorphine 5 ng/mL Alcohol 10 mg/dL Result Comment: Oxyc odone and metabolites of Oxycodone (Oxymorphone, Noroxycodone, and Noroxymorphone) are measured/detected in this assay method. Performed By: #### T OX SC ####[facility] [address] [place] [address], [id number] PHENCYCL Negative Normal Negative [facility] Comment on above: Order Comment: This toxicology screen provides unconfirmed analytical results suitable for clinical management. Results are reported as positive (at or above the cutoff) or negative (below the cutoff). Amphetamines 1000 ng/mL Barbiturates 200 ng/mL Methadone 300 ng/mL Opiates 300 ng/mL Oxycodone 100 ng/mL Fentanyl 1 ng/mL Hydrocodone 100 ng/mL Benzodiazepines 200 ng/mL Cocaine Metabolite 300 ng/mL PCP 25 ng/mL THC 50 ng/mL Buprenorphine 5 ng/mL Alcohol 10 mg/dL Performed By: #### T OX [place] ####[facility] [address] [place] [address], [facility] THC CL Negative Normal Negative [facility] Comment on above: Order Comment: This toxicology screen provides unconfirmed analytical results suitable for clinical management. Results are reported as positive (at or above the cutoff) or negative (below the cutoff). Amphetamines 1000 ng/mL Barbiturates 200 ng/mL Methadone 300 ng/mL Opiates 300 ng/mL Oxycodone 100 ng/mL Fentanyl 1 ng/mL Hydrocodone 100 ng/mL Benzodiazepines 200 ng/mL Cocaine Metabolite 300 ng/mL PCP 25 ng/mL THC 50 ng/mL Buprenorphine 5 ng/mL Alcohol 10 mg/dL Performed By: #### T OX [place] ####[facility] [address] [place] [address], [id number] URINALYSISon 12-07-2024 Glucose Ql (U) Negative Normal Negative [facility] Comment on above: Order Comment: A neg ative leukocyte esterase AND negative nitrite test or absence of pyuria (urine WBC count <= 5-10) make a UTI (urinary tract infection) very unlikely in a non-neutropenic adult (<=5% likelihood in many studies). A positive leukocyte esterase, nitrite and/or pyuria is a nonspecific result. This can be seen in conditions other than a UTI e.g. asymptomatic bacteriuria, gynecologic infections, sexually transmitted infections, and noninfectious conditions (positive predictive value for UTI around 50%) Performed By: #### u rinalysis ####[facility] [address] [place] [address], [id number] SQUAMOUS EPITHELIAL 11-30 Abnormal 0-10 [facility] Comment on above: Order Comment: A neg ative leukocyte esterase AND negative nitrite test or absence of pyuria (urine WBC count <= 5-10) make a UTI (urinary tract infection) very unlikely in a non-neutropenic adult (<=5% likelihood in many studies). A positive leukocyte esterase, nitrite and/or pyuria is a nonspecific result. This can be seen in conditions other than a UTI e.g. asymptomatic bacteriuria, gynecologic infections, sexually transmitted infections, and noninfectious conditions (positive predictive value for UTI around 50%) Performed By: #### u rinalysis ####[facility] [address] [place], [address] U APPEAR Clear Normal Clear [facility] Comment on above: Order Comment: A neg ative leukocyte esterase AND negative nitrite test or absence of pyuria (urine WBC count <= 5-10) make a UTI (urinary tract infection) very unlikely in a non-neutropenic adult (<=5% likelihood in many studies). A positive leukocyte esterase, nitrite and/or pyuria is a nonspecific result. This can be seen in conditions other than a UTI e.g. asymptomatic bacteriuria, gynecologic infections, sexually transmitted infections, and noninfectious conditions (positive predictive value for UTI around 50%) Performed By: #### u rinalysis ####[facility] [address] [place], [address] U BACTERIA Few Normal [facility] Comment on above: Order Comment: A neg ative leukocyte esterase AND negative nitrite test or absence of pyuria (urine WBC count <= 5-10) make a UTI (urinary tract infection) very unlikely in a non-neutropenic adult (<=5% likelihood in many studies). A positive leukocyte esterase, nitrite and/or pyuria is a nonspecific result. This can be seen in conditions other than a UTI e.g. asymptomatic bacteriuria, gynecologic infections, sexually transmitted infections, and noninfectious conditions (positive predictive value for UTI around 50%) Performed By: #### u rinalysis ####[facility] [address] [place], [address] U BILI Negative Normal Negative [facility] Comment on above: Order Comment: A neg ative leukocyte esterase AND negative nitrite test or absence of pyuria (urine WBC count <= 5-10) make a UTI (urinary tract infection) very unlikely in a non-neutropenic adult (<=5% likelihood in many studies). A positive leukocyte esterase, nitrite and/or pyuria is a nonspecific result. This can be seen in conditions other than a UTI e.g. asymptomatic bacteriuria, gynecologic infections, sexually transmitted infections, and noninfectious conditions (positive predictive value for UTI around 50%) Performed By: #### u rinalysis ####[facility] [address] [place], [address] U BLOOD Moderate Abnormal Negative [facility] Comment on above: Order Comment: A neg ative leukocyte esterase AND negative nitrite test or absence of pyuria (urine WBC count <= 5-10) make a UTI (urinary tract infection) very unlikely in a non-neutropenic adult (<=5% likelihood in many studies). A positive leukocyte esterase, nitrite and/or pyuria is a nonspecific result. This can be seen in conditions other than a UTI e.g. asymptomatic bacteriuria, gynecologic infections, sexually transmitted infections, and noninfectious conditions (positive predictive value for UTI around 50%) Performed By: #### u rinalysis ####[facility] [address] [place], [address] U COLOR Yellow Normal Yellow [facility] Comment on above: Order Comment: A neg ative leukocyte esterase AND negative nitrite test or absence of pyuria (urine WBC count <= 5-10) make a UTI (urinary tract infection) very unlikely in a non-neutropenic adult (<=5% likelihood in many studies). A positive leukocyte esterase, nitrite and/or pyuria is a nonspecific result. This can be seen in conditions other than a UTI e.g. asymptomatic bacteriuria, gynecologic infections, sexually transmitted infections, and noninfectious conditions (positive predictive value for UTI around 50%) Performed By: #### u rinalysis ####[facility] [address] [place], [address] U KETONE Negative Normal Negative [facility] Comment on above: Order Comment: A neg ative leukocyte esterase AND negative nitrite test or absence of pyuria (urine WBC count <= 5-10) make a UTI (urinary tract infection) very unlikely in a non-neutropenic adult (<=5% likelihood in many studies). A positive leukocyte esterase, nitrite and/or pyuria is a nonspecific result. This can be seen in conditions other than a UTI e.g. asymptomatic bacteriuria, gynecologic infections, sexually transmitted infections, and noninfectious conditions (positive predictive value for UTI around 50%) Performed By: #### u rinalysis ####[facility] [address] [place], [address] U LEUK Negative Normal Negative [facility] Comment on above: Order Comment: A neg ative leukocyte esterase AND negative nitrite test or absence of pyuria (urine WBC count <= 5-10) make a UTI (urinary tract infection) very unlikely in a non-neutropenic adult (<=5% likelihood in many studies). A positive leukocyte esterase, nitrite and/or pyuria is a nonspecific result. This can be seen in conditions other than a UTI e.g. asymptomatic bacteriuria, gynecologic infections, sexually transmitted infections, and noninfectious conditions (positive predictive value for UTI around 50%) Performed By: #### u rinalysis ####[facility] [address] [place], [address] U NITRITE Negative Normal Negative [facility] Comment on above: Order Comment: A neg ative leukocyte esterase AND negative nitrite test or absence of pyuria (urine WBC count <= 5-10) make a UTI (urinary tract infection) very unlikely in a non-neutropenic adult (<=5% likelihood in many studies). A positive leukocyte esterase, nitrite and/or pyuria is a nonspecific result. This can be seen in conditions other than a UTI e.g. asymptomatic bacteriuria, gynecologic infections, sexually transmitted infections, and noninfectious conditions (positive predictive value for UTI around 50%) Performed By: #### u rinalysis ####[facility] [address] [place], [address] U PH 7.5 Normal 5.0-8.0 [facility] Comment on above: Order Comment: A neg ative leukocyte esterase AND negative nitrite test or absence of pyuria (urine WBC count <= 5-10) make a UTI (urinary tract infection) very unlikely in a non-neutropenic adult (<=5% likelihood in many studies). A positive leukocyte esterase, nitrite and/or pyuria is a nonspecific result. This can be seen in conditions other than a UTI e.g. asymptomatic bacteriuria, gynecologic infections, sexually transmitted infections, and noninfectious conditions (positive predictive value for UTI around 50%) Performed By: #### u rinalysis ####[facility] [address] [place], [address] U PROTEIN Negative Normal Negative [facility] Comment on above: Order Comment: A neg ative leukocyte esterase AND negative nitrite test or absence of pyuria (urine WBC count <= 5-10) make a UTI (urinary tract infection) very unlikely in a non-neutropenic adult (<=5% likelihood in many studies). A positive leukocyte esterase, nitrite and/or pyuria is a nonspecific result. This can be seen in conditions other than a UTI e.g. asymptomatic bacteriuria, gynecologic infections, sexually transmitted infections, and noninfectious conditions (positive predictive value for UTI around 50%) Performed By: #### u rinalysis ####[facility] [address] [place], [address] U RBC 0-2 Normal 0-2 [facility] Comment on above: Order Comment: A neg ative leukocyte esterase AND negative nitrite test or absence of pyuria (urine WBC count <= 5-10) make a UTI (urinary tract infection) very unlikely in a non-neutropenic adult (<=5% likelihood in many studies). A positive leukocyte esterase, nitrite and/or pyuria is a nonspecific result. This can be seen in conditions other than a UTI e.g. asymptomatic bacteriuria, gynecologic infections, sexually transmitted infections, and noninfectious conditions (positive predictive value for UTI around 50%) Performed By: #### u rinalysis ####[facility] [address] [place], [address] U SG 1.015 Normal 1.005-1.030 [facility] Comment on above: Order Comment: A neg ative leukocyte esterase AND negative nitrite test or absence of pyuria (urine WBC count <= 5-10) make a UTI (urinary tract infection) very unlikely in a non-neutropenic adult (<=5% likelihood in many studies). A positive leukocyte esterase, nitrite and/or pyuria is a nonspecific result. This can be seen in conditions other than a UTI e.g. asymptomatic bacteriuria, gynecologic infections, sexually transmitted infections, and noninfectious conditions (positive predictive value for UTI around 50%) Performed By: #### u rinalysis ####[facility] [address] [place], [address] U UROBILI 0.2 mg/dL Normal 0.2 - 1.0 [facility] Comment on above: Order Comment: A neg ative leukocyte esterase AND negative nitrite test or absence of pyuria (urine WBC count <= 5-10) make a UTI (urinary tract infection) very unlikely in a non-neutropenic adult (<=5% likelihood in many studies). A positive leukocyte esterase, nitrite and/or pyuria is a nonspecific result. This can be seen in conditions other than a UTI e.g. asymptomatic bacteriuria, gynecologic infections, sexually transmitted infections, and noninfectious conditions (positive predictive value for UTI around 50%) Performed By: #### u rinalysis ####[facility] [address] [place], [address] U WBC 0-2 Normal 0-2 [facility] Comment on above: Order Comment: A neg ative leukocyte esterase AND negative nitrite test or absence of pyuria (urine WBC count <= 5-10) make a UTI (urinary tract infection) very unlikely in a non-neutropenic adult (<=5% likelihood in many studies). A positive leukocyte esterase, nitrite and/or pyuria is a nonspecific result. This can be seen in conditions other than a UTI e.g. asymptomatic bacteriuria, gynecologic infections, sexually transmitted infections, and noninfectious conditions (positive predictive value for UTI around 50%) Performed By: #### u rinalysis ####[facility] [address] [place], [address] ED NOTEon 12-05-2024 ED NOTE HNO ID: [id number] Author: GRAZYNA BOONE RN Service: ? Author Type: Registered Nurse Type: ED Notes Filed: 12/05/2024 21:53 Note Text: Pt stable and ambulatory upon departure. Discharge instructions, prescriptions and details for follow up care given and reviewed. Pt verbalized understanding of medication's prescribed as well as how to follow up to continue their care. PT educated that they should return to the ED if their condition worsens. PT verbalized understanding of the education. Pt departed from ED. [facility] ED NOTE HNO ID: [id number] Author: LAURI YU RN Service: Nursing Author Type: Registered Nurse Type: ED Notes Filed: 12/05/2024 20:54 Note Text: Patient to ED for rash to face which they thinks it may be from haldol they took 5 days ago. Was seen at urgent care but wants a second opinion. [facility] ED PROV NOTEon 12-05-2024 ED PROV NOTE HNO ID: [id number] Author: HAYDER GARDINER PA-C Service: Emergency Medicine Author Type: Physician Hoe Worker Type: ED Provider Notes Filed: 12/06/2024 00:37 Note Text: ED Provider Note Patient Name: Lily Quiroz : 1990 SERVICE DATE: 12/05/24 History Patient presents with: Rash This is a 34-year-old transgender male who presents to the ED for rash on his face. Patient states this started with redness on the left side of his face. He was seen at urgent care earlier today but would like a second opinion. He states that the redness then spread to the lower half of his face. He is having some tingling and burning around his lips but denies any itching or pain. The only medication change/new medication he has had was a dose of Haldol 5 days ago. Patient states that he has had a breakout of similar rash in the past with other medications but never on his face. Previously they would be on his torso. He denies any airway swelling, difficulty swallowing, nausea, vomiting. He denies any new detergents, soaps, or lotions. He denies any history of food allergies. Patient contacted his psychiatrist prior to arrival and informed them of possible medication reaction. They did discontinue the Haldol. PAST MEDICAL HISTORY Diagnosis Date Anxiety Atrial fibrillation (HCC) 05/2017 diagnosed age 23 Bipolar 1 disorder (HCC) 2014 History of seizures until age 15 MTHFR mutation (methylenetetrahydrofol ate reductase) Panic attacks PTSD (post-traumatic stress disorder) complex PAST SURGICAL HISTORY Procedure Laterality Date EXTENSIVE JAW SURGERY 2001 PAST SURGICAL HISTORY OF sinus surgery for deviated septum PAST SURGICAL HISTORY OF ECT treatments - 23 FAMILY HISTORY Problem Relation Age of Onset Hypertension Mother other (pulmonary embolism) Mother PE x 9 other (MTHFR) Mother other (lupus) Mother other (essential tremor) Mother other (mirgraines) Mother Psoriasis Brother other (crohns) Brother other (rheumatoid arthritis) Brother other (atrial fibrillation) Maternal Grandfather newly diagnosed 2017 at age 90 Psoriasis Brother Psoriasis Brother Psoriasis Brother Social History Tobacco Use Smoking status: Never Smokeless tobacco: Never Vaping Use Vaping status: Never Used Substance and Sexual Activity Alcohol use: No Drug use: Not Currently Types: Marijuana Comment: 1 gummy THC; only used once Sexual activity: Never ALLERGIES Allergen Reactions Methylphenidate Mental Status Change Dilaudid [Hydromorp* Vomiting Ketamine Vomiting Review of Systems Constitutional: Negative for chills and fever. HENT: Negative for sore throat, trouble swallowing and voice change. Gastrointestinal: Negative for nausea and vomiting. Skin: Positive for rash. Physical Exam Vitals [12/05/242053] BP Pulse Temp Temp src Resp SpO2 Weight Height 152/74 86 36.2 ?C (97.2 ?F) Oral 19 98 % -- -- Physical Exam Vitals and nursing note reviewed. Constitutional: General: He is not in acute distress. Appearance: Normal appearance. He is not ill-appearing or diaphoretic. HENT: Head: Comments: Redness over lower half of face as illustrated above. Slightly raised, not wheels. No swelling of lips, tongue. Airway is patent. No redness in eyes or neck Cardiovascular: Rate and Rhythm: Normal rate. Pulses: Normal pulses. Pulmonary: Effort: Pulmonary effort is normal. No respiratory distress. Breath sounds: No stridor. Skin: General: Skin is warm and dry. Capillary Refill: Capillary refill takes less than 2 seconds. Comments: No skin changes over chest, abdomen, or back. Neurological: Mental Status: He is alert. Diagnostic Testing ED Labs Ordered and Reviewed - No data to display Procedures ED Course / Clinical Impression Clinical Impressions as of 12/06/24 0030 Adverse effect of drug, initial encounter Facial erythema Rash and nonspecific skin eruption MDM / Disposition / Plan Pt is afebrile, HDS, and in NAD. Airway is patent without compromise. He has redness on the lower half of his face. Differential diagnosis includes medication reaction to Haldol which has been discontinued by his psychiatrist. Low suspicion for facial cellulitis or angioedema. Not consistent with anaphylaxis. Pt would like to try a course of steroids. He was given return precautions and dc'd home in good condition. Disposition The patient was discharged. Counseled patient regarding suspected diagnosis. SIGNATURE: MAR Oliveira JULIA ANN 12/06/24 0037 Normal [facility] APAP SerPl-mCncon 11-12-2024 Acetaminophen [Mass/Vol] ug/mL Low 10-30 [facility] Comment on above: Order Comment: Linda esquivel Type: BLOOD SPECIMEN Ordering Facility: [facility] Address: [address] [place] [address] Result Comment: Toxi c > 150 ug/mL 4 hours post ingestion The Raine Garcia nomogram can be used to estimate the probability of hepatotoxicity via the relationship of plasma acetaminophen concentration to the post ingestion interval. (Julio. Pediatrics. 1975. 55:871 to 876 and Raine et al. Arch Gis Administrator Med. 1981. 141:380 to 385). Reference ranges and high/low indicator flags are provided as general guidelines only. The treating physician must determine appropriate target levels/dosing based on the specific clinical situation. Performed By: #### 3 298-7, 4024-6, 5643-2 #### [facility] CLIA [id number] [address] [place] [address] [place] CBC W Auto Differential pane l (Bld)on 11-12-2024 Basophils (Bld) [#/Vol] 0.06 10*3/uL Normal <0.11 [facility] Comment on above: Order Comment: Linda esquivel Type: BLOOD SPECIMENOrdering Facility: [facility] Address: [address] [place] [address] Performed By: #### 5 7021-8 ####[facility] [id number] [address] [place] Basophils/100 WBC (Bld) 0.5 % Normal [facility] Comment on above: Order Comment: Speci men Type: BLOOD SPECIMENOrdering Facility: [facility] Address: [address] [place] [address] Performed By: #### 5 7021-8 ####[facility] [id number] [address] Differential cell count method Nom (Bld) Auto Normal [facility] Comment on above: Order Comment: Speci men Type: BLOOD SPECIMENOrdering Facility: [facility] Address: [address] [place] [address] Performed By: #### 5 7021-8 ####[facility] [id number] [address] Eosinophils (Bld) [#/Vol] 0.40 10*3/uL Normal <0.46 [facility] Comment on above: Order Comment: Speci men Type: BLOOD SPECIMENOrdering Facility: [facility] Address: [address] [place] [address] Performed By: #### 5 7021-8 ####[facility]ORY[facility]IA [id number] [address] Eosinophils/100 WBC (Bld) 3.6 % Normal [facility] Comment on above: Order Comment: Speci men Type: BLOOD SPECIMENOrdering Facility: [facility] Address: [address] [place] [address] Performed By: #### 5 7021-8 ####[facility] LABORATORYCLIA [id number] [address] Erythrocyte distribution width (RBC) [Ratio] 13.5 % Normal 11.5-15.0 [facility] Comment on above: Order Comment: Speci men Type: BLOOD SPECIMENOrdering Facility: [facility] Address: [address] [place] [address] Performed By: #### 5 7021-8 ####[facility] LABORATORYCLIA [id number] [place] [address] [place] Hematocrit (Bld) [Volume fraction] 35.9 % Low 39.0-51.0 [facility] Comment on above: Order Comment: Speci men Type: BLOOD SPECIMENOrdering Facility: [facility] Address: [address] [place] [address] Performed By: #### 5 7021-8 ####[facility] LABORATORYCLIA [id number] [place] [address] [place] Hemoglobin (Bld) [Mass/Vol] 11.7 g/dL Low 13.0-17.0 [facility] Comment on above: Order Comment: Speci men Type: BLOOD SPECIMENOrdering Facility: [facility] Address: [address] [place] [address] Performed By: #### 5 7021-8 ####[facility] LABORATORYCLIA [id number] [address] [place] Immature granulocytes (Bld) [#/Vol] 0.05 10*3/uL Normal <0.10 [facility] Comment on above: Order Comment: Speci men Type: BLOOD SPECIMENOrdering Facility: [facility] Address: [address] [place] [address] Performed By: #### 5 7021-8 ####[facility] LABORATORYCLIA [id number] [address] [place] Immature granulocytes/100 WBC (Bld) 0.4 % Normal [facility] Comment on above: Order Comment: Speci men Type: BLOOD SPECIMENOrdering Facility: [facility] Address: [address] [place] [address] Performed By: #### 5 7021-8 ####[facility] LABORATORYCLIA [id number] [place] [address] [place] Lymphocytes (Bld) [#/Vol] 3.75 10*3/uL Normal 1.00-4.00 [facility] Comment on above: Order Comment: Speci men Type: BLOOD SPECIMENOrdering Facility: [facility] Address: [address] [place] [address] Performed By: #### 5 7021-8 ####[facility] LABORATORYCLIA [id number] [address] Lymphocytes/100 WBC (Bld) 33.6 % Normal [facility] Comment on above: Order Comment: Speci men Type: BLOOD SPECIMENOrdering Facility: [facility] Address: [address] [place] [address] Performed By: #### 5 7021-8 ####[facility] LABORATORYCLIA [id number] [address] MCH (RBC) [Entitic mass] 29.4 pg Normal 26.0-34.0 [facility] Comment on above: Order Comment: Speci men Type: BLOOD SPECIMENOrdering Facility: [facility] Address: [address] [place] [address] Performed By: #### 5 7021-8 ####[facility] LABORATORYCLIA [id number] [address] MCHC (RBC) [Mass/Vol] 32.6 g/dL Normal 30.5-36.0 [facility] Comment on above: Order Comment: Speci men Type: BLOOD SPECIMENOrdering Facility: [facility] Address: [address] [place] [address] Performed By: #### 5 7021-8 ####[facility] LABORATORYCLIA [id number] [address] MCV (RBC) [Entitic vol] 90.2 fL Normal 80.0-100.0 [facility] Comment on above: Order Comment: Speci men Type: BLOOD SPECIMENOrdering Facility: [facility] Address: [address] [place] [address] Performed By: #### 5 7021-8 ####[facility] LABORATORYCLIA [id number] [address] Monocytes (Bld) [#/Vol] 0.70 10*3/uL Normal <0.87 [facility] Comment on above: Order Comment: Speci men Type: BLOOD SPECIMENOrdering Facility: [facility] Address: [address] [place] [address] Performed By: #### 5 7021-8 ####[facility]ATORYCLIA [id number] [address] [place] Monocytes/100 WBC (Bld) 6.3 % Normal [facility] Comment on above: Order Comment: Speci men Type: BLOOD SPECIMENOrdering Facility: [facility] Address: [address] [place] [address] Performed By: #### 5 7021-8 ####[facility]ORATORYCLIA [id number] [place] [address] [place] Neutrophils (Bld) [#/Vol] 6.21 10*3/uL Normal 1.45-7.50 [facility] Comment on above: Order Comment: Speci men Type: BLOOD SPECIMENOrdering Facility: [facility] Address: [address] [place] [address] Performed By: #### 5 7021-8 ####[facility]ORATORYCLIA [id number] [address] [place] Neutrophils/100 WBC (Bld) 55.6 % Normal [facility] Comment on above: Order Comment: Speci men Type: BLOOD SPECIMENOrdering Facility: [facility] Address: [address] [place] [address] Performed By: #### 5 7021-8 ####[facility]ORATORYCLIA [id number] [place] [address] [place] Nucleated RBC (Bld) [#/Vol] 10*3/uL Normal <0.01 [facility] Comment on above: Order Comment: Speci men Type: BLOOD SPECIMENOrdering Facility: [facility] Address: [address] [place] [address] Performed By: #### 5 7021-8 ####[facility] [facility]ORATORYCLIA [id number] [address] [place] Nucleated RBC/100 WBC (Bld) [Ratio] 0.0 /100 WBC Normal [facility] Comment on above: Order Comment: Speci men Type: BLOOD SPECIMENOrdering Facility: [facility] Address: [address] [place] [address] Performed By: #### 5 7021-8 ####[facility] LABORATORYCLIA [id number] [address] [place] Platelet mean volume (Bld) [Entitic vol] 11.0 fL Normal 9.0-12.7 [facility] Comment on above: Order Comment: Speci men Type: BLOOD SPECIMENOrdering Facility: [facility] Address: [address] [place] [address] Performed By: #### 5 7021-8 ####[facility]ORATORYCLIA [id number] [address] [place] Platelets (Bld) [#/Vol] 368 10*3/uL Normal 150-400 [facility] Comment on above: Order Comment: Speci men Type: BLOOD SPECIMENOrdering Facility: [facility] Address: [address] [place] [address] Performed By: #### 5 7021-8 ####[facility]ORATORYCLIA [id number] [place] [address] [place] RBC (Bld) [#/Vol] 3.98 10*6/uL Low 4.20-6.00 [facility] Comment on above: Order Comment: Speci men Type: BLOOD SPECIMENOrdering Facility: [facility] Address: [address] [place] [address] Performed By: #### 5 7021-8 ####[facility] LABORATORYCLIA [id number] [place] [address] [place] WBC (Bld) [#/Vol] 11.17 10*3/uL High 3.70-11.00 [facility] Comment on above: Order Comment: Speci men Type: BLOOD SPECIMENOrdering Facility: [facility] Address: [address] [place] [address] Performed By: #### 5 7021-8 ####[facility] LABORATORYCLIA [id number] [place], [place] [address] [place] [address] [place] CK SerPl-cCncon 11-12-2024 CK [Catalytic activity/Vol] 41 U/L Normal [facility] Comment on above: Order Comment: Speci men Type: BLOOD SPECIMENOrdering Facility: [facility] Address: [address] [place] [address] Performed By: #### 2 157-6, 3016-3, 58765-3, 51352-9 ####[facility] LABORATORYCLIA [id number] [place] [id number] [facility] Comprehensive metabolic 2000 panelon 11-12-2024 Albumin [Mass/Vol] 4.8 g/dL Normal 3.9-4.9 [facility] Comment on above: Order Comment: Speci men Type: BLOOD SPECIMENOrdering Facility: [facility] Address: [address] [place] [address] Performed By: #### 2 157-6, 3016-3, 58104-0, 53854-8 ####[facility] LABORATORYCLIA [id number] [address] OF [facility] ALP [Catalytic activity/Vol] 102 U/L Normal 38-113 [facility] Comment on above: Order Comment: Speci men Type: BLOOD SPECIMENOrdering Facility: [facility] Address: [address] [place] [address] Performed By: #### 2 157-6, 3016-3, 52087-2, 24768-9 ####[facility]ORATORYCLIA [id number] [place] [id number] [facility] [place] ALT With P-5'-P [Catalytic activity/Vol] 7 U/L Low 10-54 [facility] Comment on above: Order Comment: Speci men Type: BLOOD SPECIMENOrdering Facility: [facility] Address: [address] [place] [address] Performed By: #### 2 157-6, 3016-3, 72060-7, 24212-2 ####[facility] LABORATORYCLIA [id number] [place] [address] [place] Anion gap [Moles/Vol] 13 mmol/L Normal 8-15 [facility] Comment on above: Order Comment: Speci men Type: BLOOD SPECIMENOrdering Facility: [facility] Address: [address] [place] [address] Performed By: #### 2 157-6, 3016-3, 91695-0, 19543-5 ####[facility]ORATORYCLIA [id number] [place] [address] [place] AST With P-5'-P [Catalytic activity/Vol] 10 U/L Low 14-40 [facility] Comment on above: Order Comment: Speci men Type: BLOOD SPECIMENOrdering Facility: [facility] Address: [address] [place] [address] Performed By: #### 2 157-6, 3016-3, 07531-9, 35953-7 ####[facility]ORATORYCLIA [id number] [place] [address] [place] Bilirubin [Mass/Vol] 0.6 mg/dL Normal 0.2-1.3 [facility] Comment on above: Order Comment: Speci men Type: BLOOD SPECIMENOrdering Facility: [facility] Address: [address] [place] [address] Performed By: #### 2 157-6, 3016-3, 93982-6, 81636-2 ####[facility] LABORATORYCLIA [id number] [place] [address] [place] Calcium [Mass/Vol] 9.8 mg/dL Normal 8.5-10.2 [facility] Comment on above: Order Comment: Speci men Type: BLOOD SPECIMENOrdering Facility: [facility] Address: [address] [place] [address] Performed By: #### 2 157-6, 3016-3, 11305-5, 90163-7 ####[facility] LABORATORYCLIA [id number] [place] [address] [place] Chloride [Moles/Vol] 107 mmol/L Normal 98-107 [facility] Comment on above: Order Comment: Speci men Type: BLOOD SPECIMENOrdering Facility: [facility] Address: [address] [place] [address] Performed By: #### 2 157-6, 3016-3, 64755-3, 02719-9 ####[facility] LABORATORYCLIA [id number] [place] [address] [place] CO2 [Moles/Vol] 18 mmol/L Low 22-30 [facility] Comment on above: Order Comment: Speci men Type: BLOOD SPECIMENOrdering Facility: [facility] Address: [address] [place] [address] Performed By: #### 2 157-6, 3016-3, 61088-6, 64316-1 ####[facility] LABORATORYCLIA [id number] [address] STATES OF [facility] Creatinine [Mass/Vol] 1.02 mg/dL Normal 0.73-1.22 [facility] Comment on above: Order Comment: Speci men Type: BLOOD SPECIMENOrdering Facility: [facility] Address: [address] [place] [address] Performed By: #### 2 157-6, 3016-3, 34240-2, 91464-8 ####[facility] LABORATORYCLIA [id number] [address] Creatinine and Glomerular filtration rate.predicted panel (S/P/Bld) 73 mL/min/1.73m??? Normal >=60 [facility] Comment on above: Order Comment: Speci men Type: BLOOD SPECIMENOrdering Facility: [facility] Address: [address] [place] [address] Result Comment: Stevo mated Glomerular Filtration Rate (eGFR) is calculated using the 2020 CKD-EPI creatinine equation. This equation utilizes serum creatinine, sex, and age as parameters. The creatinine assay has traceable calibration to isotope dilution-mass spectrometry. Refer to KDIGO guidelines for clinical interpretation. In patients with unstable renal function, e.g. those with acute kidney injury, the eGFR may not accurately reflect actual GFR. Performed By: #### 2 157-6, 3016-3, 95498-1, 52546-7 ####[facility] LABORATORYCLIA [id number] [place] [address] [place] Glucose [Mass/Vol] 91 mg/dL Normal 74-99 [facility] Comment on above: Order Comment: Speci men Type: BLOOD SPECIMENOrdering Facility: [facility] Address: [address] [place] [address] Result Comment: The [place] Diabetes Association (ADA) provides guidance for cutoff values for fasting glucose and random glucose. The ADA defines fasting as no caloric intake for at least 8 hours. Fasting plasma glucose results between 100 to 125 mg/dL indicate increased risk for diabetes (prediabetes). Fasting plasma glucose results greater than or equal to 126 mg/dL meet the criteria for diagnosis of diabetes. In the absence of unequivocal hyperglycemia, results should be confirmed by repeat testing. In a patient with classic symptoms of hyperglycemia or hyperglycemic crisis, random plasma glucose results greater than or equal to 200 mg/dL meet the criteria for diagnosis of diabetes. Reference: Standards of Medical Care in Diabetes 2016, [place] Diabetes Association. Diabetes Care. 2016.39(Suppl 1). Performed By: #### 2 157-6, 3016-3, 23512-9, 77938-6 ####[facility] LABORATORYCLIA [id number] [place] [address] [place] Potassium [Moles/Vol] 3.4 mmol/L Low 3.7-5.1 [facility] Comment on above: Order Comment: Speci men Type: BLOOD SPECIMENOrdering Facility: [facility] Address: [address] [place] [address] Performed By: #### 2 157-6, 3016-3, 15582-7, 71140-2 ####[facility] LABORATORYCLIA [id number] [place] [id number] [place] Protein [Mass/Vol] 7.2 g/dL Normal 6.3-8.0 [facility] Comment on above: Order Comment: Speci men Type: BLOOD SPECIMENOrdering Facility: [facility] Address: [address] [place] [address] Performed By: #### 2 157-6, 3016-3, 12942-2, 57514-7 ####[facility] LABORATORYCLIA [id number] [place] [address] [place] Sodium [Moles/Vol] 138 mmol/L Normal 136-144 [facility] Comment on above: Order Comment: Speci men Type: BLOOD SPECIMENOrdering Facility: [facility] Address: [address] [place] [address] Performed By: #### 2 157-6, 3016-3, 09909-1, 57528-4 ####[facility]ORATORYCLIA [id number] [place] [id number] [place] Urea nitrogen [Mass/Vol] 7 mg/dL Normal 7-21 [facility] Comment on above: Order Comment: Speci men Type: BLOOD SPECIMENOrdering Facility: [facility] Address: [address] [place] [address] Performed By: #### 2 157-6, 3016-3, 74965-7, 59913-8 ####[facility] LABORATORYCLIA [id number] [place] [address] [place] ED NOTEon 11-12-2024 ED NOTE HNO ID: [id number] Author: ADRIANA MONET RN Service: Emergency Medicine Author Type: Registered Nurse Type: ED Notes Filed: 11/12/2024 09:28 Note Text: Beverage to pt [facility] ED NOTE HNO ID: [id number] Author: CHAUNCEY ASKEW RN Service: ? Author Type: Registered Nurse Type: ED Notes Filed: 11/12/2024 04:52 Note Text: Bed: [facility] Expected date: Expected time: Means of arrival: Comments: High risk only [facility] ED PROV NOTEon 11-12-2024 ED PROV NOTE HNO ID: [id number] Author: FLORIN BAXTER MD Service: Emergency Medicine Author Type: Resident Type: ED Provider Notes Filed: 11/12/2024 15:15 Note Text: Attestation signed by Florin Baxter MD at 11/12/2024 3:15 PM Signature: Florin Baxter MD Date: 11/12/2024 Time: 3:15 PM Patient signed out to me by Dr. Raman pending full medical clearance including viral swab. I spoke with the patient after he slept. He denies auditory hallucinations at time of my evaluation. He denies SI, plan, HI, plan, delusions or paranoia. Shows good judgement. States that he got some sleep here and is feeling better. Epic chatted his doctor to discuss other medication options but they are out of the office for holiday. He states he will call on Wednesday to speak to him. Psych nurse evaluated the patient as well and agrees with outpatient management after speaking to psychiatrist. Patients auditory hallucinations was gothic music. There is no reason to pink slip patient at this time. Recommended calling his doctor tomorrow and returning with any new or worsening symptoms. He is agreeable. Lives at home with parents and brother. Brother manages medications, patient has no direct access to medications. No access to firearms. Patient discharged home in stable condition. AUNP GARCIA 11/12/24 1031 FLORIN BAXTER 11/12/24 1515 Normal [facility] ED PROV NOTE HNO ID: [id number] Author: LEANN PORRAS MD Service: Emergency Medicine Author Type: Resident Type: ED Provider Notes Filed: 12/22/2024 03:05 Note Text: Attestation signed by Leann Porras MD at 12/22/2024 3:05 AM Attending Note I evaluated the patient and personally participated in the burr components. I agree with the resident's findings and plan as documented and have discussed the case and management of the patient's care with the resident. Signature: Leann Porras MD ED Provider Note Patient Name: Lily Quiroz : 1990 SERVICE DATE: 11/12/24 History Patient presents with: tea: Pt ambulatory through triage believes she's having a manic episode, history of bipolar disorder. Unable to take antipsychotics. -hi - si. Pt has slept in 4 days , audible hallucinations. This is a 34-year-old transgender male who presents to the ED due to concern for acute tea. Patient's PMH significant for bipolar 1 disorder, ADHD. Patient currently not on any antipsychotics due to a prior history of tardive dyskinesia. Was recently placed on Abilify by had a allergic reaction to it and was stopped. She tells me that she has not slept in the last 2 to 3 days. She is also been having auditory hallucinations. She denies any visual hallucinations. No homicidal or suicidal ideations. She tells me that she does not even have the need for sleep. Patient denies any acute somatic clinical symptoms. PAST MEDICAL HISTORY Diagnosis Date Anxiety Atrial fibrillation (HCC) 05/2017 diagnosed age 23 Bipolar 1 disorder (HCC) 2014 History of seizures until age 15 MTHFR mutation (methylenetetrahydrofol ate reductase) Panic attacks PTSD (post-traumatic stress disorder) complex PAST SURGICAL HISTORY Procedure Laterality Date EXTENSIVE JAW SURGERY 2001 PAST SURGICAL HISTORY OF sinus surgery for deviated septum PAST SURGICAL HISTORY OF ECT treatments - 23 FAMILY HISTORY Problem Relation Age of Onset Hypertension Mother other (pulmonary embolism) Mother PE x 9 other (MTHFR) Mother other (lupus) Mother other (essential tremor) Mother other (mirgraines) Mother Psoriasis Brother other (crohns) Brother other (rheumatoid arthritis) Brother other (atrial fibrillation) Maternal Grandfather newly diagnosed 2017 at age 90 Psoriasis Brother Psoriasis Brother Psoriasis Brother Social History Tobacco Use Smoking status: Never Smokeless tobacco: Never Vaping Use Vaping status: Never Used Substance and Sexual Activity Alcohol use: No Drug use: Not Currently Types: Marijuana Comment: 1 gummy THC; only used once Sexual activity: Never ALLERGIES Allergen Reactions Methylphenidate Mental Status Change Dilaudid [[employer]* Vomiting Ketamine Vomiting Review of Systems Constitutional: Negative for chills, diaphoresis and fever. Eyes: Negative for redness and visual disturbance. Respiratory: Negative for shortness of breath and wheezing. Cardiovascular: Negative for chest pain and palpitations. Gastrointestinal: Negative for abdominal pain, diarrhea, nausea and vomiting. Genitourinary: Negative for dysuria and flank pain. Neurological: Negative for syncope, weakness, light-headedness and headaches. Psychiatric/Behavioral: Positive for hallucinations. Negative for agitation and confusion. Physical Exam Vitals [11/12/24 0449] BP Pulse Temp Temp src Resp SpO2 Weight Height 153/80 76 36.5 ?C (97.7 ?F) Oral 22 100 % 59 kg (130 lb) 1.727 m (5' 8") Physical Exam Constitutional: General: He is awake. He is not in acute distress. Appearance: He is well-developed, well-groomed and overweight. He is not toxic-appearing or diaphoretic. HENT: Mouth/Throat: Pharynx: Oropharynx is clear. Neck: Vascular: No JVD. Cardiovascular: Rate and Rhythm: Normal rate and regular rhythm. Pulses: Radial pulses are 2+ on the right side and 2+ on the left side. Dorsalis pedis pulses are 2+ on the right side and 2+ on the left side. Heart sounds: No murmur heard. Pulmonary: Effort: No accessory muscle usage or respiratory distress. Breath sounds: No stridor. No wheezing. Abdominal: General: There is no distension. Palpations: There is no fluid wave or pulsatile mass. Tenderness: There is no abdominal tenderness. There is no rebound. Musculoskeletal: General: No swelling or tenderness. Cervical back: Neck supple. No rigidity or tenderness. Neurological: Mental Status: He is oriented to person, place, and time. Mental status is at baseline. GCS: GCS eye subscore is 4. GCS verbal subscore is 5. GCS motor subscore is 6. Cranial Nerves: No dysarthria or facial asymmetry. Sensory: No sensory deficit. Motor: No weakness, abnormal muscle tone or seiz (more content not included)... Normal [facility] EKGon 11-12-2024 Electrocardiogram Ventricular Rate : 6 4 BPM QRS Duration : 70 ms Q-T Interval : 460 ms QTC Calculation(Bazett) : 474 ms Calculated R Patriot : 87 degrees Calculated T Patriot : 85 degrees ATRIAL FIBRILLATION NONSPECIFIC ST ABNORMALITY ABNORMAL ECG WHEN COMPARED WITH ECG OF 28-Sep-2023 12:15, ATRIAL FIBRILLATION HAS REPLACED SINUS RHYTHM T WAVE INVERSION NO LONGER EVIDENT IN INFERIOR LEADS T WAVE INVERSION NO LONGER EVIDENT IN ANTERIOR LEADS NONSPECIFIC T WAVE ABNORMALITY NOW EVIDENT IN LATERAL LEADS POOR DATA QUALITY, INTERPRETATION MAY BE ADVERSELY AFFECTED Confirmed by ROSCOE KELLEY MD ([id number]) on 04/06/2025 3:42:15 PM NAME : LILY QUIROZ PID : [id number] : 1990 Gender : Female Race : ORD : Procedure Date : Nov 12 2024 06:22:03 Edit Date : Apr 06 2025 15:42:19 Diagnosis: ATRIAL FIBRILLATION NONSPECIFIC ST ABNORMALITY ABNORMAL ECG WHEN COMPARED WITH ECG OF 28-Sep-2023 12:15, ATRIAL FIBRILLATION HAS REPLACED SINUS RHYTHM T WAVE INVERSION NO LONGER EVIDENT IN INFERIOR LEADS T WAVE INVERSION NO LONGER EVIDENT IN ANTERIOR LEADS NONSPECIFIC T WAVE ABNORMALITY NOW EVIDENT IN LATERAL LEADS POOR DATA QUALITY, INTERPRETATION MAY BE ADVERSELY AFFECTED Confirmed by ROSCOE KELLEY MD ([id number]) on 04/06/2025 3:42:15 PM Test Reason : Location : 4 : [facility] EM Overread By : ROSCOE KELLEY MD Edited By : ROSCOE KELLEY MD Referred By : , Acquired by : FIDENCIO WERNER Normal [facility] Ethanol [facility] Ethanol [Mass/Vol] mg/dL Normal <11 [facility] Comment on above: Order Comment: Speci men Type: BLOOD SPECIMEN Ordering Facility: [facility] Address: [address] [place] [address] Performed By: #### 3 298-7, 4024-6, 5643-2 #### [facility] CLIA [id number] [address] [place] [address] [place] HCG Preg Ur Qlon 11-12-2024 HCG ( test) Ql (U) Negative Normal Negative [facility] Comment on above: Order Comment: Speci men Type: URINE SPECIMENOrdering Facility: [facility] Address: [address] [place] [address] Result Comment: This test is intended to aid in the early detection of . Very dilute urine samples, as indicated by a low specific gravity, may not contain sales representative leather goods levels of hCG. This test detects intact hCG only. This test does not reliably detect hCG degradation products, including free-beta subunit and beta-core fragment. Therefore, this test may show reduced reactivity in urine after 8 weeks gestation. A number of conditions other than , including trophoblastic disease and certain non-trophoblastic neoplasms cause elevated levels of hCG. As with any assay employing mouse antibodies, the possibility exists for interference by human anti-mouse antibodies (HAMA) in the specimen. The test provides a presumptive diagnosis for . Performed By: #### 2 106-3 ####[facility]IA [id number] [place] [address] [place] Athalia, Bld SerPl-sCncon Athalia [Moles/Vol] 0.3 mmol/L Low 0.6-1.2 [facility] Comment on above: Order Comment: Speci sierra Type: BLOOD SPECIMENOrdering Facility: [facility] Address: [address] [place] [address] Result Comment: Refe rence ranges and high/low indicator flags are provided as general guidelines only. The treating physician must determine appropriate target levels/dosing based on the specific clinical situation. Performed By: #### 2 157-6, 3016-3, 56056-1, 63413-1 ####[facility]ORYCLIA [id number] [address] OF [place] Salicylates SerPl-mCncon Salicylates [Mass/Vol] mg/dL Low 3.0-30.0 [facility] Comment on above: Order Comment: Speci men Type: BLOOD SPECIMEN Ordering Facility: [facility] Address: [address] [place] [address] Result Comment: The therapeutic range varies and has been reported to be 3.0 to 10.0 mg/dL for anti pyretic/analgesic conditions and 15.0 to 30.0 mg/dL for anti inflammatory/rheumatic fever conditions. Ranges published by the instrument box sealing machine feeder. Reference ranges and high/low indicator flags are provided as general guidelines only. The treating physician must determine appropriate target levels/dosing based on the specific clinical situation. Performed By: #### 3 298-7, 4024-6, 5643-2 #### [facility] CLIA [id number] [address] OF [facility] TOXICOLOGY SCREEN, ROUTINE U RINEon 11-12-2024 Amphetamines Confirm (U) [Mass/Vol] Positive Abnormal Negative [facility] Comment on above: Order Comment: Speci men Type: URINE SPECIMEN Ordering Facility: [facility] Address: [address] [place] [address] Result Comment: Cuto ff threshold at 1000 ng/mL. Performed By: #### U TOX2 #### [facility] CLIA [id number] [address] [place] [address] [place] BARBITURATES, URINE Negative Normal Negative [facility] Comment on above: Order Comment: Speci men Type: URINE SPECIMEN Ordering Facility: [facility] Address: [address] [place] [address] Result Comment: Cuto ff threshold at 200 ng/mL. Performed By: #### U TOX2 #### [facility] CLIA [id number] [address] [place] [address] [place] BENZODIAZEPINES, UR Negative Normal Negative [facility] Comment on above: Order Comment: Speci men Type: URINE SPECIMEN Ordering Facility: [facility] Address: [address] [place] [address] Result Comment: Cuto ff threshold at 200 ng/mL. Performed By: #### U TOX2 #### [facility] CLIA [id number] [address] OF [place] Cannabinoids Screen Ql (U) Negative Normal Negative [facility] Comment on above: Order Comment: Speci men Type: URINE SPECIMEN Ordering Facility: [facility] Address: [address] [place] [address] Result Comment: Cuto ff threshold at 50 ng/mL. Performed By: #### U TOX2 #### [facility] CLIA [id number] [address] OF [place] Cocaine Ql (U) Negative Normal Negative [facility] Comment on above: Order Comment: Speci men Type: URINE SPECIMEN Ordering Facility: [facility] Address: [address] [place] [address] Result Comment: Cuto ff threshold at 300 ng/mL. Performed By: #### U TOX2 #### [facility] CLIA [id number] [address] OF [place] Ethanol (U) [Mass/Vol] <11 Normal <11 [facility] Comment on above: Order Comment: Speci men Type: URINE SPECIMEN Ordering Facility: [facility] Address: [address] [place] [address] Performed By: #### U TOX2 #### [facility] CLIA [id number] [address] OF [place] Opiates Screen Ql (U) Negative Normal Negative [facility] Comment on above: Order Comment: Speci men Type: URINE SPECIMEN Ordering Facility: [facility] Address: [address] [place] [address] Result Comment: Cuto ff threshold at 300 ng/mL. Performed By: #### U TOX2 #### [facility] CLIA [id number] [address] OF [place] oxyCODONE cutoff Screen (U) [Mass/Vol] Negative Normal Negative [facility] Comment on above: Order Comment: Speci men Type: URINE SPECIMEN Ordering Facility: [facility] Address: [address] [place] [address] Result Comment: Cuto ff threshold at 100 ng/mL. Performed By: #### U TOX2 #### [facility] CLIA [id number] [address] Phencyclidine Ql (U) Negative Normal Negative [facility] Comment on above: Order Comment: Speci men Type: URINE SPECIMEN Ordering Facility: [facility] Address: [address] [place] [address] Result Comment: Cuto ff threshold at 25 ng/mL. Performed By: #### U TOX2 #### [facility] CLIA [id number] [address] OF [facility] TSH SerPl-aCncon 11-12-2024 TSH Qn 1.280 m[IU]/L Normal 0.270-4.200 [facility] Comment on above: Order Comment: Speci men Type: BLOOD SPECIMENOrdering Facility: [facility] Address: [address] [place] [address] Performed By: #### 2 157-6, 3016-3, 66282-1, 79018-6 ####[facility]ORYCLIA [id number] [address] OF [facility] JASON Comprehensive Panelon JASON TABLE Comment Normal . [facility] Comment on above: Result Comment: Auto antibody Disease Association Condition Frequency --------- Antinuclear Antibody, SLE, mixed connective Direct (JASON-D) tissue diseases --------- dsDNA SLE 40 - 60% --------- Chromatin Drug induced SLE 90% SLE 48 - 97% --------- SSA (Ro) SLE 25 - 35% Sjogren's Syndrome 40 - 70% Lupus 100% --------- SSB (La) SLE 10% Sjogren's Syndrome 30% --------- Sm (anti-Bermeo) SLE 15 - 30% --------- RESIDENTIAL CASE MANAGER Mixed Connective Tissue Disease 95% (U1 nRNP, SLE 30 - 50% anti-ribonucleoprotein) Polymyositis and/or Dermatomyositis 20% --------- Scl-70 (antiDNA Scleroderma (diffuse) 20 - 35% topoisomerase) Crest 13% --------- Micki-1 Polymyositis and/or Dermatomyositis 20 - 40% --------- Centromere B Scleroderma - Crest variant 80% Performed By: #### L 3100.7950, L100.0100, L500.4050, L3410.2400, L3100.5440 ####[facility] [address] [place], [address] ANTI-CENT B AB <0.2 Normal 0.0-0.9 [facility] Comment on above: Performed By: #### L 3100.7950, L100.0100, L500.4050, L3410.2400, L3100.5440 ####[facility] [address] [place], [address] ANTI-DNA (DS)AB <1 Normal 0-9 [facility] Comment on above: Result Comment: Nega tive <5 Equivocal 5 - 9 Positive >9 Performed By: #### L 3100.7950, L100.0100, L500.4050, L3410.2400, L3100.5440 ####[facility] [address] [place], [address] ANTI-MICKI-1 <0.2 Normal 0.0-0.9 [facility] Comment on above: Performed By: #### L 3100.7950, L100.0100, L500.4050, L3410.2400, L3100.5440 ####[facility] [address] [place], [address] ANTI-SS-A < 0.2 Normal 0.0-0.9 [facility] Comment on above: Performed By: #### L 3100.7950, L100.0100, L500.4050, L3410.2400, L3100.5440 ####[facility] [address] [place], [address] ANTI-SS-B < 0.2 Normal 0.0-0.9 [facility] Comment on above: Performed By: #### L 3100.7950, L100.0100, L500.4050, L3410.2400, L3100.5440 ####[facility] [address] [place], [address] ANTICHROMATIN <0.2 Normal 0.0-0.9 [facility] Comment on above: Performed By: #### L 3100.7950, L100.0100, L500.4050, L3410.2400, L3100.5440 ####[facility] [address] [place], [address] ANTISCLERODERM <0.2 Normal 0.0-0.9 [facility] Comment on above: Performed By: #### L 3100.7950, L100.0100, L500.4050, L3410.2400, L3100.5440 ####[facility] [address] [place], [address] RESIDENTIAL CASE MANAGER Ab <0.2 Normal 0.0-0.9 [facility] Comment on above: Performed By: #### L 3100.7950, L100.0100, L500.4050, L3410.2400, L3100.5440 ####[facility] [address] [place], [address] BERMEO Ab <0.2 Normal 0.0-0.9 [facility] Comment on above: Performed By: #### L 3100.7950, L100.0100, L500.4050, L3410.2400, L3100.5440 ####[facility] [address] [place], [place], [address] Antinuclear Antibody, IFAon 10-11-2024 JASON, IFA Negative Normal . [facility] Comment on above: Result Comment: Nega tive <1:80 Borderline 1:80 Positive >1:80 ICAP nomenclature: AC-0 For more information about Hep-2 cell patterns use ANApatterns.org, the official website for the International Consensus on Antinuclear Antibody (JASNO) Patterns (ICAP). Performed at: [facility] [address] [id number] Finance Assistant: Jesus Alberto Varner PhD, Phone: [phone] Performed By: #### L 3100.7950, L100.0100, L500.4050, L3410.2400, L3100.5440 ####[facility] [address] [place], [address] Celiac Disease Profileon ENDOMYSIAL IGA Negative Normal Negative [facility] Comment on above: Performed By: #### L 3100.7950, L100.0100, L500.4050, L3410.2400, L3100.5440 ####[facility] [address] [place], [place], [id number] IMMUNOGLOB A QN 231 mg/dL Normal 87-352 [facility] Comment on above: Result Comment: Perf ormed at: [address] [id number] Finance Assistant: Jesus Alberto Varner PhD, Phone: [phone] Performed By: #### L 3100.7950, L100.0100, L500.4050, L3410.2400, L3100.5440 ####[facility] [address] [place], [address] tTG IGA <2 Normal 0-3 [facility] Comment on above: Result Comment: Nega tive 0 - 3 Weak Positive 4 - 10 Positive >10 Tissue Transglutaminase (tTG) has been identified as the endomysial antigen. Studies have demonstr- ated that endomysial IgA antibodies have over 99% specificity for gluten sensitive enteropathy. Performed By: #### L 3100.7950, L100.0100, L500.4050, L3410.2400, L3100.5440 ####[facility] [address] [place], [address] CBC W/Diff, Automatedon 11-2 Absolute Lymph 1.61 X10 3/uL Normal 0.83-4.51 [facility] Comment on above: Performed By: #### L 3100.7950, L100.0100, L500.4050, L3410.2400, L3100.5440 ####[facility] [address] [place], [address] Absolute Neut 6.2 X10 3/uL Normal 2.0-7.7 [facility] Comment on above: Performed By: #### L 3100.7950, L100.0100, L500.4050, L3410.2400, L3100.5440 ####[facility] [address] [place], [address] Basophils/100 WBC (Bld) 0.5 % Normal 0-1 [facility] Comment on above: Performed By: #### L 3100.7950, L100.0100, L500.4050, L3410.2400, L3100.5440 ####[facility] [address] [place], [address] Eosinophils/100 WBC (Bld) 3.4 % Normal 0-5 [facility] Comment on above: Performed By: #### L 3100.7950, L100.0100, L500.4050, L3410.2400, L3100.5440 ####[facility] [address] [place], [address] Erythrocyte distribution width (RBC) [Ratio] 13.3 % Normal 11.6-14.6 [facility] Comment on above: Performed By: #### L 3100.7950, L100.0100, L500.4050, L3410.2400, L3100.5440 ####[facility] [address] [place], [address] Hematocrit (Bld) [Volume fraction] 36.7 % Low 37-47 [facility] Comment on above: Performed By: #### L 3100.7950, L100.0100, L500.4050, L3410.2400, L3100.5440 ####[facility] [address] [place], [address] Hemoglobin (Bld) [Mass/Vol] 11.8 g/dL Low 12.0-15.0 [facility] Comment on above: Performed By: #### L 3100.7950, L100.0100, L500.4050, L3410.2400, L3100.5440 ####[facility] [address] [place], [address] IG% 0.200 Normal 0.0-0.9 [facility] Comment on above: Result Comment: IG% - Immature Granulocytes (promyelocytes, myelocytes and metamyelocytes) > 1% indicates that a LEFT SHIFT is Present. Performed By: #### L 3100.7950, L100.0100, L500.4050, L3410.2400, L3100.5440 ####[facility] [address] [place], [address] Lymphocytes/100 WBC (Bld) 18.4 % Low 19-41 [facility] Comment on above: Performed By: #### L 3100.7950, L100.0100, L500.4050, L3410.2400, L3100.5440 ####[facility] [address] [place], [address] MCH (RBC) [Entitic mass] 29.6 pg Normal 27.0-32.0 [facility] Comment on above: Performed By: #### L 3100.7950, L100.0100, L500.4050, L3410.2400, L3100.5440 ####[facility] [address] [place], [address] MCHC (RBC) [Mass/Vol] 32.2 g/dL Normal 32-36 [facility] Comment on above: Performed By: #### L 3100.7950, L100.0100, L500.4050, L3410.2400, L3100.5440 ####[facility] [address] [place], [address] MCV (RBC) [Entitic vol] 92.0 fL Normal 81-99 [facility] Comment on above: Performed By: #### L 3100.7950, L100.0100, L500.4050, L3410.2400, L3100.5440 ####[facility] [address] [place], [address] Monocytes/100 WBC (Bld) 6.5 % Normal 0-10 [facility] Comment on above: Performed By: #### L 3100.7950, L100.0100, L500.4050, L3410.2400, L3100.5440 ####[facility] [address] [place], [address] Neutrophils/100 WBC (Bld) 71.0 % High 47-70 [facility] Comment on above: Performed By: #### L 3100.7950, L100.0100, L500.4050, L3410.2400, L3100.5440 ####[facility] [address] [place], [address] Nucleated RBC (Bld) [#/Vol] 0 10*3/uL Normal 0-5 [facility] Comment on above: Performed By: #### L 3100.7950, L100.0100, L500.4050, L3410.2400, L3100.5440 ####[facility] [address] [place], [address] Platelet mean volume (Bld) [Entitic vol] 11.7 fL Normal 6.2-12.0 [facility] Comment on above: Performed By: #### L 3100.7950, L100.0100, L500.4050, L3410.2400, L3100.5440 ####[facility] [address] [place], [address] Platelets (Bld) [#/Vol] 260 10*3/uL Normal 150-450 [facility] Comment on above: Performed By: #### L 3100.7950, L100.0100, L500.4050, L3410.2400, L3100.5440 ####[facility] [address] [place], [address] RBC (Bld) [#/Vol] 3.99 10*6/uL Low 4.2-5.4 [facility] Comment on above: Performed By: #### L 3100.7950, L100.0100, L500.4050, L3410.2400, L3100.5440 ####[facility] [address] [place], [address] RDW SD 44.9 fl High 35.1-43.9 [facility] Comment on above: Performed By: #### L 3100.7950, L100.0100, L500.4050, L3410.2400, L3100.5440 ####[facility] [address] [place], [address] WBC (Bld) [#/Vol] 8.7 10*3/uL Normal 4.4-11.0 [facility] Comment on above: Performed By: #### L 3100.7950, L100.0100, L500.4050, L3410.2400, L3100.5440 ####[facility] [address] [place], [address] Comprehensive Metabolic Prof ilon 10-10-2024 Albumin [Mass/Vol] 3.8 g/dL Normal 3.2-5.0 [facility] Comment on above: Performed By: #### L 3100.7950, L100.0100, L500.4050, L3410.2400, L3100.5440 ####[facility] [address] [place], [address] Albumin/Globulin [Mass ratio] 1.2 {ratio} Normal 0.9-2.4 [facility] Comment on above: Performed By: #### L 3100.7950, L100.0100, L500.4050, L3410.2400, L3100.5440 ####[facility] [address] [place], [address] ALK P 92 U/L Normal 45-117 [facility] Comment on above: Performed By: #### L 3100.7950, L100.0100, L500.4050, L3410.2400, L3100.5440 ####[facility] [address] [place], [address] ALT [Catalytic activity/Vol] 12 U/L Low 13-56 [facility] Comment on above: Performed By: #### L 3100.7950, L100.0100, L500.4050, L3410.2400, L3100.5440 ####[facility] [address] [place], [address] AST [Catalytic activity/Vol] 6 U/L Low 15-37 [facility] Comment on above: Performed By: #### L 3100.7950, L100.0100, L500.4050, L3410.2400, L3100.5440 ####[facility] [address] [place], [address] Bilirubin [Mass/Vol] 0.40 mg/dL Normal 0.20-1.00 [facility] Comment on above: Result Comment: For patients on eltrombopag therapy, use of Dimension [place] TBIL is not recommended. Performed By: #### L 3100.7950, L100.0100, L500.4050, L3410.2400, L3100.5440 ####[facility] [address] [place], [address] BUN/CRE 4.2 RATIO Low 10-20 [facility] Comment on above: Performed By: #### L 3100.7950, L100.0100, L500.4050, L3410.2400, L3100.5440 ####[facility] [address] [place], [address] CA,Total 9.0 mg/dL Normal 8.5-10.1 [facility] Comment on above: Performed By: #### L 3100.7950, L100.0100, L500.4050, L3410.2400, L3100.5440 ####[facility] [address] [place], [address] Chloride [Moles/Vol] 112 mmol/L High 98-107 [facility] Comment on above: Performed By: #### L 3100.7950, L100.0100, L500.4050, L3410.2400, L3100.5440 ####[facility] [address] [place], [address] CO2 [Moles/Vol] 20.0 mmol/L Low 21.0-32.0 [facility] Comment on above: Performed By: #### L 3100.7950, L100.0100, L500.4050, L3410.2400, L3100.5440 ####[facility] [address] [place], [address] Creatinine [Mass/Vol] 0.94 mg/dL Normal 0.55-1.02 [facility] Comment on above: Result Comment: The validity of the calculated GFR GFRAA in patients over 70 years has not been determined. Clinical correlation is essential. Performed By: #### L 3100.7950, L100.0100, L500.4050, L3410.2400, L3100.5440 ####[facility] [address] [place], [address] EST GFR - AA 86 mL/min Normal >60 [facility] Comment on above: Result Comment: Afri can Japanese GFR Calc Performed By: #### L 3100.7950, L100.0100, L500.4050, L3410.2400, L3100.5440 ####[facility] [address] [place], [address] GAP 5 Normal 5-15 [facility] Comment on above: Performed By: #### L 3100.7950, L100.0100, L500.4050, L3410.2400, L3100.5440 ####[facility] [address] [place], [address] GFR/1.73 sq M.predicted among non-blacks MDRD (S/P/Bld) [Vol rate/Area] 71 mL/min/{1.73_m2} Normal >60 [facility] Comment on above: Result Comment: Non- GFR Calc Performed By: #### L 3100.7950, L100.0100, L500.4050, L3410.2400, L3100.5440 ####[facility] [address] [place], [address] Globulin (S) [Mass/Vol] 3.1 g/dL Normal 2.2-4.2 [facility] Comment on above: Performed By: #### L 3100.7950, L100.0100, L500.4050, L3410.2400, L3100.5440 ####[facility] [address] [place], [address] Glucose [Mass/Vol] 95 mg/dL Normal 74-106 [facility] Comment on above: Performed By: #### L 3100.7950, L100.0100, L500.4050, L3410.2400, L3100.5440 ####[facility] [address] [place], [address] Potassium [Moles/Vol] 3.7 mmol/L Normal 3.5-5.1 [facility] Comment on above: Performed By: #### L 3100.7950, L100.0100, L500.4050, L3410.2400, L3100.5440 ####[facility] [address] [place], [address] Sodium [Moles/Vol] 138 mmol/L Normal 136-145 [facility] Comment on above: Performed By: #### L 3100.7950, L100.0100, L500.4050, L3410.2400, L3100.5440 ####[facility] [address] [place], [address] T PROT 6.9 g/dL Normal 6.4-8.2 [facility] Comment on above: Performed By: #### L 3100.7950, L100.0100, L500.4050, L3410.2400, L3100.5440 ####[facility] [address] [place], [address] Urea nitrogen [Mass/Vol] 4 mg/dL Low 7-18 [facility] Comment on above: Performed By: #### L 3100.7950, L100.0100, L500.4050, L3410.2400, L3100.5440 ####[facility] [address] [place], [address] Internal Medicine Office Vis yvonne 10-09-2024 Internal Medicine Office Visit [facility] [address] [place] [address] [place] [address] OFFICE VISIT Date of Service: 10/10/24 MR#: [id number] Acct: [id number] Name: LILY QUIROZ Rep #: [id number] : 1990 Provider: Dr. 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 People Required: No Is patient in pain?: No Allergies hydromorphone Adverse Reaction (Unknown, Verified 10/10/24 08:50) PT UNSURE OF REACTION ketamine Adverse Reaction (Verified 10/10/24 08:50) Vomiting Medications ???Medication ???Instructions ???Recorded ???Confirmed ???Type aspirin 81 mg tablet,delayed 81 mg PO DAILY 01/31/20 10/10/24 History release clonazepam 1 mg tablet 1 mg PO DAILY PRN Anxiety 01/31/20 10/10/24 History metoprolol succinate 50 mg 50 mg PO DAILY 01/31/20 10/10/24 History tablet,extended release 24 hr pantoprazole 40 mg tablet,delayed 40 mg PO DAILY 04/03/24 10/10/24 History release topiramate 100 mg tablet (Topamax) 100 mg PO DAILY 04/03/24 10/10/24 History lithium carbonate 600 mg capsule 600 mg PO QPM 04/26/24 10/10/24 History dextroamphetamine-amphe tamine ER 30 mg PO DAILY 05/25/24 10/10/24 History 30 mg 24hr capsule,extend release metformin 500 mg tablet 500 mg PO BID 05/25/24 10/10/24 History fluoxetine 10 mg capsule 10 mg PO DAILY 06/27/24 10/10/24 History lamotrigine 100 mg tablet 100 mg PO BID 06/27/24 10/10/24 History ferrous sulfate 324 mg (65 mg 324 mg PO QODAY 30 days #15 tabs 06/28/24 10/10/24 Rx iron) tablet,delayed release Nurse's Note: States 2-3 weeks ago she noticed she lost a significant amount of weight, 10lbs w/o trying. Is concerned as she also experiences loss of the white in the nail which she read can be a thing. Has been getting rashes and sick like upper respiratory issues more frequently. States she knows she's anemic. States her skin is very dry which has never happened. Denies sleeping issues, denies night sweats, or unexplained pain, lumps that were not there before. States when she gets sick her lymph nodes swell. Denies loss of appetite or activity change. States that she started eating double when she realized that she lost 10lbs in the matter of weeks. States the weight loss stopped when she did this and put on a few pounds. [facility] Medical History Depression Bipolar disorder Anxiety Hypothyroidism Hyperthyroidism Anemia Epilepsy Migraine Atrial fibrillation GERD (gastroesophageal reflux disease) History of anorexia nervosa ADD (attention deficit disorder) Generalized anxiety disorder Post traumatic stress disorder (PTSD) Bipolar 1 disorder, depressed, severe Surgical History History of mandibular surgery H/O sinus surgery Family History Mother Diabetes Autoimmune disorder lupus Bleeding disorder MTHFR gene Cancer squamous cell skin cancer CVA (cerebral vascular accident) Anxiety Depression Grandmother Breast cancer Diabetes Brother Bowel disease crohn's Rheumatoid arthritis Brother Psoriasis Brother Alcoholism Anxiety Depression Social History household members: family current occupational status: disabled 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 They are up to date on their routine blood work and screening. They never got their tetanus booster, but did have their flu shot. They do not smoke and do not need any refills. They report that they are eating healthy and staying active. The patient has a long history of mental health conditions including depression, anxiety, ADHD and bipolar disorder. They have struggled with their mental health since they were 11. They are following with psychiatry, Dr. Peterson, in [place] whom they see monthly. They also follows with a psychologist every (more content not included)... Normal [facility] NM THY UPTAKE AND SCANon NM THY UPTAKE AND SCAN * * *Final Report * * * DATE OF EXAM: Sep 08 2024 9:05AM WON 0040 - NM THY UPTAKE AND SCAN / PROCEDURE REASON: Thyrotoxicosis without thyroid storm, unspecified thyrotoxicosis type * * * * Physician Interpretation * * * * I-123 UPTAKE AND SCAN CLINICAL HISTORY: 34 years old Female patient with history of thyrotoxicosis. TECHNIQUE: 391 mCi Piero-123 Capsules orally. Uptake was measured at 24 hours, followed by imaging at 24 hours. Pinhole collimator was used in anterior and oblique projections. RESULT: The 24-hour I-123 uptake is 20.9% (normal range is 10-35%). There is uniform uptake seen in both lobes of the thyroid. No hot or cold nodules are identified. IMPRESSION: 1. NORMAL I-123 UPTAKE. 2. No evidence of hot or cold nodules. Combining Machine Operator: PSCB Transcribe Date/Time: Sep 08 2024 10:44A Dictated by : BUD DRAKE MD This examination was interpreted and the report reviewed and electronically signed by: BUD DRAKE MD on Sep 08 2024 10:49AM EST [id number] Normal [facility] Thyroid gland Views and V iews uptakeon 09-08-2024 IMPRESSION: 1. NORMAL I-123 UPTAKE. 2. No evidence of hot or cold nodules. Combining Machine Operator: MALENA Transcribe Date/Time: Sep 08 2024 10:44A Dictated by : BUD DRAKE MD This examination was interpreted and the report reviewed and electronically signed by: BUD DRAKE MD on Sep 08 2024 10:49AM [facility] DIVISION OF RADIOLOGY * * *Final Report* * * DATE OF EXAM: Sep 08 2024 9:05AM WON 0040 - NM THY UPTAKE AND SCAN / PROCEDURE REASON: Thyrotoxicosis without thyroid storm, unspecified thyrotoxicosis type * * * * Physician Interpretation * * * * I-123 UPTAKE AND SCAN CLINICAL HISTORY: 34 years old Female patient with history of thyrotoxicosis. TECHNIQUE: 391 mCi Piero-123 Capsules orally. Uptake was measured at 24 hours, followed by imaging at 24 hours. Pinhole collimator was used in anterior and oblique projections. RESULT: The 24-hour I-123 uptake is 20.9% (normal range is 10-35%). There is uniform uptake seen in both lobes of the thyroid. No hot or cold nodules are identified. DIVISION OF RADIOLOGY Provider, [facility] - 09/08/2024 * * *Final Report* * * DATE OF EXAM: Sep 08 2024 9:05AM WON 0040 - NM THY UPTAKE AND SCAN / PROCEDURE REASON: Thyrotoxicosis without thyroid storm, unspecified thyrotoxicosis type * * * * Physician Interpretation * * * * I-123 UPTAKE AND SCAN CLINICAL HISTORY: 34 years old Female patient with history of thyrotoxicosis. TECHNIQUE: 391 mCi Piero-123 Capsules orally. Uptake was measured at 24 hours, followed by imaging at 24 hours. Pinhole collimator was used in anterior and oblique projections. RESULT: The 24-hour I-123 uptake is 20.9% (normal range is 10-35%). There is uniform uptake seen in both lobes of the thyroid. No hot or cold nodules are identified. IMPRESSION IMPRESSION: 1. NORMAL I-123 UPTAKE. 2. No evidence of hot or cold nodules. Combining Machine Operator: MALENA Transcribe Date/Time: Sep 08 2024 10:44A Dictated by : BUD DRAKE MD This examination was interpreted and the report reviewed and electronically signed by: BUD DRAKE MD on Sep 08 2024 10:49AM EST [facility] Radiology Study observation (narrative) [facility] NM Thyroid gland Views and V iews uptakeOrdered By: Ccf Provider on 09-08-2024 [facility] T3 SerPl-mCncon 09-07-2024 T3 [Mass/Vol] 113 ng/dL Normal 79-165 [facility] Comment on above: Order Comment: Speci men Type: BLOOD SPECIMEN Ordering Facility: [facility] Address: [address] [place] [address] Performed By: #### 3 053-6, 3024-7, 3016-3 #### [facility] CLIA [id number] [address] [place] [address] [place] T4 Free SerPl-mCncon 024 Free T4 [Mass/Vol] 0.9 ng/dL Normal 0.9-1.7 [facility] Comment on above: Order Comment: Speci men Type: BLOOD SPECIMEN Ordering Facility: [facility] Address: [address] [place] [address] Performed By: #### 3 053-6, 3024-7, 3016-3 #### [facility] CLIA [id number] [address] [place] [address] [place] TSH SerPl-aCncon 09-07-2024 TSH Qn 2.180 m[IU]/L Normal 0.270-4.200 [facility] Comment on above: Order Comment: Speci men Type: BLOOD SPECIMEN Ordering Facility: [facility] Address: [address] [place] [address] Performed By: #### 3 053-6, 3024-7, 3016-3 #### [facility] CLIA [id number] [address] [place] [address] [place] UFENTSon 07-23-2024 Fentanyl (u) Negative Normal Negative [facility] Comment on above: Result Comment: Test ing has been performed FOR MEDICAL PURPOSES ONLY. Performed By: #### U ARIANES, UOXYS #### [address] [address] #### PREGU, UADIP, UDRUG #### [address] [address] UOXYSon 07-23-2024 Oxycodone (u) Negative Normal Negative [facility] Comment on above: Result Comment: Test ing has been performed FOR MEDICAL PURPOSES ONLY. Performed By: #### U FENTS, UOXYS #### [address] [address] #### PREGU, UADIP, UDRUG #### [address] [address] .Auto Diffon 07-22-2024 Basophil, Absolute 0.0 10 3/mcL Normal 0.0-0.2 [facility] Comment on above: Performed By: #### A CHRISTINE VEGA, ANEU, ADIFF, CBC, ESAU, CMP, ACETA, GFR #### [address] [address] Basophils/100 WBC (Bld) 0.3 % Normal 0.0-2.5 [facility] Comment on above: Performed By: #### A CHRISTINE VEGA, ANEU, ADIFF, CBC, ESAU, CMP, ACETA, GFR #### [address] [address] Eosinophil, Absolute 0.5 10 3/mcL High 0.0-0.[address] [facility] Comment on above: Performed By: #### A CHRISTINE VEGA, ANEU, ADIFF, CBC, ESAU, CMP, ACETA, GFR #### [address] [address] Eosinophils/100 WBC (Bld) 4.2 % Normal 0.0-7.0 [facility] Comment on above: Performed By: #### A CHRISTINE VEGA, ANEU, ADIFF, CBC, ESAU, CMP, ACETA, GFR #### [address] [address] Lymphocyte, Absolute 3.5 10 3/mcL Normal 0.8-3.[address] [facility] Comment on above: Performed By: #### A CHRISTINE VEGA, ANEU, ADIFF, CBC, ESAU, CMP, ACETA, GFR #### [address] [address] Lymphocytes/100 WBC (Bld) 27.5 % Normal 10.0-50.0 [facility] Comment on above: Performed By: #### A CHRISTINE VEGA, ANEU, ADIFF, CBC, ESAU, CMP, ACETA, GFR #### [address] [address] Monocyte, Absolute 0.7 10 3/mcL Normal 0.2-1.0 [facility] Comment on above: Performed By: #### A CHRISTINE VEGA, ANEU, ADIFF, CBC, ESAU, CMP, ACETA, GFR #### [address] [address] Monocytes/100 WBC (Bld) 5.7 % Normal 1.7-13.0 [facility] Comment on above: Performed By: #### A CHRISTINE VEGA, ANEU, ADIFF, CBC, ESAU, CMP, ACETA, GFR #### [address] [address] Neutrophils/100 WBC (Bld) 62.3 % Normal 37.0-80.0 [facility] Comment on above: Performed By: #### A CHRISTINE VEGA, ANEU, ADIFF, CBC, ESAU, CMP, ACETA, GFR #### [address] [address] .GFRon 07-22-2024 GFR 78 ml/min/1.73sqm Normal [facility] Comment on above: Result Comment: GFR Population mean for , Non- Americans Ages 20-29 = 116 mL/min/1.73 sq.m. Ages 30-39 = 107 mL/min/1.73 sq.m. Ages 40-49 = 99 mL/min/1.73 sq.m. Ages 50-59 = 93 mL/min/1.73 sq.m. Ages 60-69 = 85 mL/min/1.73 sq.m. Ages 70+ = 75 mL/min/1.73 sq.m. Chronic Kidney Disease: Less than 60 mL/min/1.73 square meters End Stage Renal Disease: Less than 15 mL/min/1.73 square meters Performed By: #### U FENTS, UOXYS #### [address] [address] #### PREGU, UADIP, UDRUG #### [address] [address] GFR Non- 64 ml/min/1.73sqm Normal [facility] Comment on above: Result Comment: GFR Population mean for , Non- Americans Ages 20-29 = 116 mL/min/1.73 sq.m. Ages 30-39 = 107 mL/min/1.73 sq.m. Ages 40-49 = 99 mL/min/1.73 sq.m. Ages 50-59 = 93 mL/min/1.73 sq.m. Ages 60-69 = 85 mL/min/1.73 sq.m. Ages 70+ = 75 mL/min/1.73 sq.m. Chronic Kidney Disease: Less than 60 mL/min/1.73 square meters End Stage Renal Disease: Less than 15 mL/min/1.73 square meters Performed By: #### U FENTS, UOXYS #### [address] [address] #### PREGU, UADIP, UDRUG #### [address] [address] .MDWon 07-22-2024 Monocyte Distribution Width 16.31 Normal 0.00-20.00 [facility] Comment on above: Result Comment: For ED adult patients suspected of sepsis, MDW<=20.0 does not rule out sepsis or risk of sepsis Performed By: #### A GARY, W, ANEU, ADIFF, CBC, ESAU, CMP, ACETA, GFR #### [address] [address] .NEUABSon 07-22-2024 Neutrophil, Absolute 7.8 10 3/mcL High 2.9-6.[address] [facility] Comment on above: Performed By: #### A CHRISTINE VEGA, ANEU, ADIFF, CBC, ESAU, CMP, ACETA, GFR #### [place] [address] ACETAon 07-22-2024 Acetaminophen Lvl <0.0 Low 10.0-30.0 [facility] Comment on above: Performed By: #### Jose WEST UOXYS #### [place] [address] #### PREGU, UADIP, UDRUG #### [place] [address] [place] 07-22-2024 Ethanol Level <3 Normal 0-3 [facility] Comment on above: Performed By: #### Jose WEST UOXYS #### [place] [address] #### PREGU, UADIP, UDRUG #### [place] [address] CBCon 07-22-2024 Erythrocyte distribution width (RBC) [Ratio] 15.5 % High 11.5-14.5 [facility] Comment on above: Performed By: #### A CHRISTINE VEGA, ANEU, ADIFF, CBC, ESAU, CMP, ACETA, GFR #### [place] [address] Hematocrit (Bld) [Volume fraction] 36.9 % Low 37.0-47.0 [facility] Comment on above: Performed By: #### A CHRISTINE VEGA, ANEU, ADIFF, CBC, ESAU, CMP, ACETA, GFR #### [place] [address] Hgb 12.4 G/dL Normal 12.0-16.0 [facility] Comment on above: Performed By: #### A CHRISTINE VEGA, ANEU, ADIFF, CBC, ESAU, CMP, ACETA, GFR #### [address] [place] [address] MCH (RBC) [Entitic mass] 30.2 pg Normal 27.0-31.2 [facility] Comment on above: Performed By: #### A CHRISTINE VEGA, ANEU, ADIFF, CBC, ESAU, CMP, ACETA, GFR #### [address] [address] MCHC 33.5 G/dL Normal 33.0-37.0 [facility] Comment on above: Performed By: #### A CHRISTINE VEGA, ANEU, ADIFF, CBC, ESAU, CMP, ACETA, GFR #### [place] [address] MCV (RBC) [Entitic vol] 90.1 fL Normal 80.0-94.0 [facility] Comment on above: Performed By: #### A CHRISTINE VEGA, ANEU, ADIFF, CBC, ESAU, CMP, ACETA, GFR #### [address] [address] Platelet 353 10 3/mcL Normal 130-400 [facility] Comment on above: Performed By: #### A CHRISTINE VEGA, ANEU, ADIFF, CBC, ESAU, CMP, ACETA, GFR #### [address] [address] Platelet mean volume (Bld) [Entitic vol] 9.1 fL Normal 7.4-10.4 [facility] Comment on above: Performed By: #### A CHRISTINE VEGA, ANEU, ADIFF, CBC, ESAU, CMP, ACETA, GFR #### [address] [address] RBC 4.10 10 6/mcL Low 4.20-5.40 [facility] Comment on above: Performed By: #### A CHRISTINE VEGA, ANEU, ADIFF, CBC, ESAU, CMP, ACETA, GFR #### [place] [id number] WBC 12.6 10 3/mcL High 4.6-10.8 [facility] Comment on above: Performed By: #### A LC, MDW, ANEU, ADIFF, CBC, ESAU, CMP, ACETA, GFR #### [address] [address] CMPon 07-22-2024 Albumin Level 3.8 G/dL Normal 3.5-5.0 [facility] Comment on above: Performed By: #### U FENTS UOXYS #### [place] [address] #### PREGU, UADIP, UDRUG #### [address] [address] Albumin/Globulin [Mass ratio] 1.3 {ratio} Normal 1.1-2.5 [facility] Comment on above: Performed By: #### U FENTFrancy UOXYS #### [place] [address] #### PREGU, UADIP, UDRUG #### [place] [address] ALP [Catalytic activity/Vol] 102 U/L Normal 40-135 [facility] Comment on above: Performed By: #### U FENTS UOXYS #### [place] [address] #### PREGU, UADIP, UDRUG #### [place] [id number] ALT [Catalytic activity/Vol] 14 U/L Normal 14-59 [facility] Comment on above: Performed By: #### U FENTS, UOXYS #### [place] [address] #### PREGU, UADIP, UDRUG #### [place] [id number] AST [Catalytic activity/Vol] 9 U/L Low 10-40 [facility] Comment on above: Performed By: #### U FENTS, UOXYS #### [place] [address] #### PREGU, UADIP, UDRUG #### [address] [address] Bili Total 0.3 mg/dL Normal 0.2-1.0 [facility] Comment on above: Result Comment: Use of this assay is not recommended for patients undergoing treatment with eltrombopag due to the potential for falsely elevated results. Performed By: #### U ARIANES UOXYS #### [place] [address] #### PREGU, UADIP, UDRUG #### [address] [address] BUN/Creatinine Ratio 5 ratio Low 7-27 [facility] Comment on above: Performed By: #### Jose WEST UOXYS #### [place] [address] #### PREGU, UADIP, UDRUG #### [address] [address] Calcium [Mass/Vol] 9.6 mg/dL Normal 8.4-10.2 [facility] Comment on above: Performed By: #### Jose THAKKARS UOXYS #### [place] [address] #### PREGU, UADIP, UDRUG #### [address] [address] Chloride [Moles/Vol] 104 mmol/L Normal 98-107 [facility] Comment on above: Performed By: #### U FENTS UOXYS #### [place] [address] #### PREGU, UADIP, UDRUG #### [address] [address] CO2 [Moles/Vol] 24 mmol/L Normal 22-29 [facility] Comment on above: Performed By: #### U FENTS UOXYS #### [place] [address] #### PREGU, UADIP, UDRUG #### [address] [address] Creatinine [Mass/Vol] 0.98 mg/dL Normal 0.55-1.02 [facility] Comment on above: Result Comment: Test ing performed on Siemens Dimension EXL analyzer using a modified kinetic Demond technique. Performed By: #### Jose WEST UOXYS #### [place] [address] #### PREGU, UADIP, UDRUG #### [address] [address] Electrolyte Balance 7.0 mEq/L Normal 4.0-15.0 [facility] Comment on above: Performed By: #### Jose WEST UOXYS #### [place] [address] #### PREGU, UADIP, UDRUG #### [place] [id number] Globulin 2.9 G/dL Normal [facility] Comment on above: Performed By: #### Jose WEST UOXYS #### [place] [address] #### PREGU, UADIP, UDRUG #### [address] [address] Glucose [Mass/Vol] 91 mg/dL Normal 70-105 [facility] Comment on above: Performed By: #### Jose WEST UOXYS #### [place] [address] #### PREGU, UADIP, UDRUG #### [address] [address] Potassium [Moles/Vol] 4.0 mmol/L Normal 3.5-5.1 [facility] Comment on above: Performed By: #### U ARIANES UOXYS #### [place] [address] #### PREGU, UADIP, UDRUG #### [address] [address] Sodium [Moles/Vol] 135 mmol/L Low 136-145 [facility] Comment on above: Performed By: #### Jose RUBIOOXYS #### [place] [address] #### PREGU, UADIP, UDRUG #### [place] [address] Total Protein 6.7 G/dL Normal 6.4-8.2 [facility] Comment on above: Performed By: #### Jose WEST UOXYS #### [place] [address] #### PREGU, UADIP, UDRUG #### [place] [address] Urea nitrogen [Mass/Vol] 5 mg/dL Low 7-18 [facility] Comment on above: Performed By: #### Jose RUBIOOXYS #### [place] [address] #### PREGU, UADIP, UDRUG #### [place] [address] CVFLURVon 07-22-2024 FLU A PCR Negative Normal Negative [facility] Comment on above: Performed By: #### C VFLURV #### [place] [address] FLU B PCR Negative Normal Negative [facility] Comment on above: Performed By: #### C VFLURV #### [place] [address] RSV PCR Negative Normal Negative [facility] Comment on above: Performed By: #### C VFLURV #### [place] [address] SARS-CoV-2 (COVID-19) RNA WALLY+probe Ql (Unsp spec) Negative Normal Negative [facility] Comment on above: Result Comment: Resu lts from the Xpert Xpress CoV-2/Flu/RSV plus test should be correlated with the clinical history, epidemiological data, and other data available to the clinical evaluating the patient. Performance of the Xpert Xpress CoV-2/Flu/RSV plus test has only been established in nasopharyngeal swab specimen. Erroneous test results might occur from improper specimen collection, failure to follow the recommended sample collection, handling and storage procedures, technical error, or sample mix-up. False negative results may occur if a virus is present at a level below the analytical limit of detection. Viral nucleic acid may persist in vivo, independent of virus viability. Detection of analyte target(s) does not imply that the corresponding virus(es) are infectious or are the causative agents for clinical symptoms. Recent patient exposure to FluMist or other live attenuated influenza vaccines may cause inaccurate positive results. Performed By: #### [facility] #### [place] [address] LABORATORYOrdered By: Jean Carlos Rodriguez on 07-22-2024 Acetaminophen [Mass/Vol] mcg/mL Low 10.0 - 30.0 mcg/mL AO Chemistry S Amphetamines Screen Ql (U) Negative *NA* (07/22/24 9:35 PM) Invalid Interpretation Code Negative AO ADM SS Appearance (U) Clear (07/22/24 9:35 PM) Normal Clear AO Auto Urine SS Barbiturates Screen Ql (U) Negative *NA* (07/22/24 9:35 PM) Invalid Interpretation Code Negative AO ADM SS Benzodiazepines Ql (U) Negative *NA* (07/22/24 9:35 PM) Invalid Interpretation Code Negative AO ADM SS Benzoylecgonine Screen Ql (U) Negative *NA* (07/22/24 9:35 PM) Invalid Interpretation Code Negative AO ADM SS Bilirubin Ql (U) Negative (07/22/24 9:35 PM) Normal Negative AO Auto Urine SS Cannabinoids Screen Ql (U) Negative *NA* (07/22/24 9:35 PM) Invalid Interpretation Code Negative AO ADM SS Color (U) Yellow (07/22/24 9:35 PM) Normal AO Auto Urine SS FLUAV RNA WALLY+probe Ql (Resp) Negative (07/22/24 9:35 PM) Normal Negative AO Auto Urine SS FLUBV RNA WALLY+probe Ql (Resp) Negative (07/22/24 9:35 PM) Normal Negative AO Auto Urine SS Glucose Test strip (U) [Mass/Vol] Negative Normal Negative AO Auto Urine SS HCG ( test) Ql Negative (07/22/24 9:35 PM) Normal AO Manual Urine SS Hemoglobin Auto test strip (U) [Mass/Vol] Negative (07/22/24 9:35 PM) Normal Negative AO Auto Urine SS Ketones Ql (U) Negative Normal Negative AO Auto Urine SS Methadone Screen Ql (U) Negative *NA* (07/22/24 9:35 PM) Invalid Interpretation Code Negative AO ADM SS Opiates Screen Ql (U) Negative *NA* (07/22/24 9:35 PM) Invalid Interpretation Code Negative AO ADM SS Phencyclidine Ql (U) Negative *NA* (07/22/24 9:35 PM) Invalid Interpretation Code Negative AO ADM SS test (u) int Not detected Invalid Interpretation Code AO Manual Urine SS RSV RNA WALLY+probe Ql (Resp) Negative (07/22/24 9:35 PM) Normal Negative AO Auto Urine SS SARS-CoV-2 (COVID-19) RNA WALLY+probe Ql (Resp) Negative 7 (07/22/24 9:35 PM) Normal Negative AO Auto Urine SS Comment on above: Interpretive Data: R esults from the Xpert Xpress CoV-2/Flu/RSV plus test should be correlated with the clinical history, epidemiological data, and other data available to the clinical evaluating the patient. Performance of the Xpert Xpress CoV-2/Flu/RSV plus test has only been established in nasopharyngeal swab specimen. Erroneous test results might occur from improper specimen collection, failure to follow the recommended sample collection, handling and storage procedures, technical error, or sample mix-up. False negative results may occur if a virus is present at a level below the analytical limit of detection. Viral nucleic acid may persist in vivo, independent of virus viability. Detection of analyte target(s) does not imply that the corresponding virus(es) are infectious or are the causative agents for clinical symptoms. Recent patient exposure to FluMist or other live attenuated influenza vaccines may cause inaccurate positive results. UA Leuk Est Negative (07/22/24 9:35 PM) Normal Negative AO Auto Urine SS UA Nitrite Negative (07/22/24 9:35 PM) Normal Negative AO Auto Urine SS UA pH 6.5 (07/22/24 9:35 PM) Normal 5.0 - 8.0 AO Auto Urine SS UA Protein Negative Normal Negative AO Auto Urine SS UA Spec Grav 1.010 *ABN* (07/22/24 9:35 PM) Invalid Interpretation Code 1.015-1.025 AO Auto Urine SS UA Specimen Type Not Given (07/22/24 9:35 PM) Normal AO Auto Urine SS UA Urobilinogen 0.2 E.U./dL Normal 0.2-1.0 AO Auto Urine SS Urine Drugs screened: See Below 6 (07/22/24 9:35 PM) Normal AO Chemistry S Comment on above: Interpretive Data: T his drug screen is a presumptive screening only. No confirmation will be performed unless requested. Drugs screened include: Threshold Amphetamines/Methamphetamines 1,000 ng/mL Barbiturates 200 ng/mL Benzodiazepine metabolites 200 ng/mL Cannabinoids (THC metabolites) 50 ng/mL Cocaine 300 ng/mL Opiates 300 ng/mL Methadone 300 ng/mL Phencyclidine (PCP) 25 ng/mL Testing has been performed FOR MEDICAL PURPOSES ONLY. LABORATORYOrdered By: SYSTEM SYSTEM on 07-22-2024 Albumin BCP dye [Mass/Vol] 3.8 G/dL Normal 3.5 - 5.0 G/dL AO ADM SS Albumin/Globulin [Mass ratio] 1.3 {ratio} Normal 1.1 - 2.5 ratio AO ADM SS ALP [Catalytic activity/Vol] 102 U/L Normal 40 - 135 U/L AO ADM SS ALT With P-5'-P [Catalytic activity/Vol] 14 U/L Normal 14 - 59 U/L AO ADM SS AST With P-5'-P [Catalytic activity/Vol] 9 U/L Low 10 - 40 U/L AO ADM SS Basophils (Bld) [#/Vol] 0.0 103/mcL Normal 0.0 - 0.2 10^3/mcL AO Workflow SS Basophils/100 WBC (Bld) 0.3 % Normal 0.0 - 2.5 % AO Workflow SS Bilirubin [Mass/Vol] 0.3 mg/dL Normal 0.2 - 1 .0 mg/dL AO ADM SS Comment on above: Interpretive Data: U se of this assay is not recommended for patients undergoing treatment with eltrombopag due to the potential for falsely elevated results. Calcium [Mass/Vol] 9.6 mg/dL Normal 8.4 - 10. 2 mg/dL AO ADM SS Chloride [Moles/Vol] 104 mmol/L Normal 98 - 10 7 mmol/L AO ADM SS CO2 [Moles/Vol] 24 mmol/L Normal 22 - 29 mmol/L AO ADM SS Creatinine [Mass/Vol] 0.98 mg/dL Normal 0.55 - 1.02 mg/dL AO ADM SS Comment on above: Interpretive Data: T esting performed on Siemens Dimension EXL analyzer using a modified kinetic Demond technique. Electrolyte Balance 7.0 mEq/L Normal 4.0 - 15 .0 mEq/L AO ADM SS Eosinophil, Absolute 0.5 103/mcL High 0.0 - 0 .4 10^3/mcL AO Workflow SS Eosinophils/100 WBC (Bld) 4.2 % Normal 0.0 - 7.0 % AO Workflow SS Erythrocyte distribution width (RBC) [Ratio] 15.5 % High 11.5 - 14.5 % AO Workflow SS Ethanol [Mass/Vol] mg/dL Normal 0 - 3 mg/dL AO AD M SS GFR/1.73 sq M.predicted among blacks MDRD (S/P/Bld) [Vol rate/Area] 78 ml/min/1.73sqm Invalid Interpretation Code AO Chemistry S Comment on above: Interpretive Data: GFR Population mean for , Non- Americans Ages 20-29 = 116 mL/min/1.73 sq.m. Ages 30-39 = 107 mL/min/1.73 sq.m. Ages 40-49 = 99 mL/min/1.73 sq.m. Ages 50-59 = 93 mL/min/1.73 sq.m. Ages 60-69 = 85 mL/min/1.73 sq.m. Ages 70+ = 75 mL/min/1.73 sq.m. Chronic Kidney Disease: Less than 60 mL/min/1.73 square meters End Stage Renal Disease: Less than 15 mL/min/1.73 square meters GFR/1.73 sq M.predicted among non-blacks MDRD (S/P/Bld) [Vol rate/Area] 64 ml/min/1.73sqm Invalid Interpretation Code AO Chemistry S Comment on above: Interpretive Data: GFR Population mean for , Non- Americans Ages 20-29 = 116 mL/min/1.73 sq.m. Ages 30-39 = 107 mL/min/1.73 sq.m. Ages 40-49 = 99 mL/min/1.73 sq.m. Ages 50-59 = 93 mL/min/1.73 sq.m. Ages 60-69 = 85 mL/min/1.73 sq.m. Ages 70+ = 75 mL/min/1.73 sq.m. Chronic Kidney Disease: Less than 60 mL/min/1.73 square meters End Stage Renal Disease: Less than 15 mL/min/1.73 square meters Globulin 2.9 G/dL Invalid Interpretation Code AO ADM SS Glucose [Mass/Vol] 91 mg/dL Normal 70 - 105 mg/dL AO ADM SS Hematocrit (Bld) [Volume fraction] 36.9 % Low 37.0 - 47.0 % AO Workflow SS Hemoglobin (Bld) [Mass/Vol] 12.4 G/dL Normal 12.0 - 16.0 G/dL AO Workflow SS Lymphocytes (Bld) [#/Vol] 3.5 103/mcL Normal 0.8 - 3.9 10^3/mcL AO Workflow SS Lymphocytes/100 WBC (Bld) 27.5 % Normal 10.0 - 50.0 % AO Workflow SS MCH (RBC) [Entitic mass] 30.2 pg Normal 27.0 - 31.2 pg AO Workflow SS MCHC 33.5 G/dL Normal 33.0 - 37.0 G/dL AO Workflow SS MCV (RBC) [Entitic vol] 90.1 fL Normal 80.0 - 94.0 fL AO Workflow SS Monocyte distribution width Auto (Bld) [Entitic vol] 16.31 1 Normal 0.00 - 20.00 AO Workflow SS Comment on above: Result Comment: For ED adult patients suspected of sepsis, MDW<=20.0 does not rule out sepsis or risk of sepsis Monocytes (Bld) [#/Vol] 0.7 103/mcL Normal 0.2 - 1.0 10^3/mcL AO Workflow SS Monocytes/100 WBC (Bld) 5.7 % Normal 1.7 - 13.0 % AO Workflow SS Neutrophils (Bld) [#/Vol] 7.8 103/mcL High 2.9 - 6.2 10^3/mcL AO Workflow SS Neutrophils/100 WBC (Bld) 62.3 % Normal 37.0 - 80.0 % AO Workflow SS Platelet mean volume (Bld) [Entitic vol] 9.1 fL Normal 7.4 - 10.4 fL AO Workflow SS Platelets (Bld) [#/Vol] 353 103/mcL Normal 130 - 400 10^3/mcL AO Workflow SS Potassium [Moles/Vol] 4.0 mmol/L Normal 3.5 - 5.1 mmol/L AO ADM SS Protein [Mass/Vol] 6.7 G/dL Normal 6.4 - 8.2 G/dL AO ADM SS RBC (Bld) [#/Vol] 4.10 106/mcL Low 4.20 - 5.4 0 10^6/mcL AO Workflow SS Salicylates [Mass/Vol] 1.6 mg/dL Low 2.8 - 20.0 mg/dL AO ADM SS Sodium [Moles/Vol] 135 mmol/L Low 136 - 145 mmol/L AO ADM SS Urea nitrogen [Mass/Vol] 5 mg/dL Low 7 - 18 mg/dL AO ADM SS Urea nitrogen/Creatinine [Mass ratio] 5 ratio Low 7 - 27 ratio AO ADM SS WBC (Bld) [#/Vol] 12.6 103/mcL High 4.6 - 10.8 10^3/mcL AO Workflow SS LABORATORYOrdered By: Annamarie Haq on 07-22-2024 fentaNYL Screen Ql (U) Negative 2 *NA* (07/22/24 9:35 PM) Invalid Interpretation Code Negative ADM SS Comment on above: Interpretive Data: T esting has been performed FOR MEDICAL PURPOSES ONLY. oxyCODONE Ql (U) Negative 3 *NA* (07/22/24 9:35 PM) Invalid Interpretation Code Negative ADM SS Comment on above: Interpretive Data: T esting has been performed FOR MEDICAL PURPOSES ONLY. PREGUon 07-22-2024 HCG ( test) Ql (U) Negative Normal [facility] Comment on above: Performed By: #### U FENTS UOXYS #### [facility] [address] [place] [address] #### PREGU, UADIP, UDRUG #### [facility] [address] [place], [place] [address] test (u) int Not detected Invalid Interpretation Code [facility] Comment on above: Performed By: #### U FENTS, UOXYS #### [place] [address] #### PREGU, UADIP, UDRUG #### [place] [address] SALon 07-22-2024 Salicylate Level 1.6 mg/dL Low 2.8-20.0 [facility] Comment on above: Performed By: #### U FENTS, UOXYS #### [place] [address] #### PREGU, UADIP, UDRUG #### [place] [address] UDRUGon 07-22-2024 Amphetamine (u) Negative Normal Negative [facility] Comment on above: Performed By: #### U FENTS, UOXYS #### [place] [address] #### PREGU, UADIP, UDRUG #### [place] [address] Barbiturate (u) Negative Normal Negative [facility] Comment on above: Performed By: #### U FENTS, UOXYS #### [place] [address] #### PREGU, UADIP, UDRUG #### [address] [address] Benzodiazepine (u) Negative Normal Negative [facility] Comment on above: Performed By: #### U FENTS, UOXYS #### [place] [address] #### PREGU, UADIP, UDRUG #### [address] [address] Cannabinoid (u) Negative Normal Negative [facility] Comment on above: Performed By: #### U FENTS, UOXYS #### [place] [address] #### PREGU, UADIP, UDRUG #### [place] [address] Cocaine Ql (U) Negative Normal Negative [facility] Comment on above: Performed By: #### U FENTS, UOXYS #### [place] [address] #### PREGU, UADIP, UDRUG #### [place] [address] Methadone Ql (U) Negative Normal Negative [facility] Comment on above: Performed By: #### U FENTS, UOXYS #### [place] [address] #### PREGU, UADIP, UDRUG #### [place] [address] Opiate (u) Negative Normal Negative [facility] Comment on above: Performed By: #### U FENTS, UOXYS #### [place] [address] #### PREGU, UADIP, UDRUG #### [place] [address] PCP (u) Negative Normal Negative [facility] Comment on above: Performed By: #### U FENTS, UOXYS #### [place] [address] #### PREGU, UADIP, UDRUG #### [place] [address] Urine Drugs screened: See Below Normal [facility] Comment on above: Result Comment: This drug screen is a presumptive screening only. No confirmation will be performed unless requested. Drugs screened include: Threshold Amphetamines/Methamphetamines 1,000 ng/mL Barbiturates 200 ng/mL Benzodiazepine metabolites 200 ng/mL Cannabinoids (THC metabolites) 50 ng/mL Cocaine 300 ng/mL Opiates 300 ng/mL Methadone 300 ng/mL Phencyclidine (PCP) 25 ng/mL Testing has been performed FOR MEDICAL PURPOSES ONLY. Performed By: #### U FENTS, UOXYS #### [place] [address] #### PREGU, UADIP, UDRUG #### [address] [address] URINon 07-22-2024 Color (U) Yellow Normal [facility] Comment on above: Performed By: #### U FENTS, UOXYS #### [place] [address] #### PREGU, UADIP, UDRUG #### [address] [address] Glucose (U) [Mass/Vol] Negative Normal Negative [facility] Comment on above: Performed By: #### U FENTS, UOXYS #### [place] [address] #### PREGU, UADIP, UDRUG #### [address] [address] Ketones Ql (U) Negative Normal Negative [facility] Comment on above: Performed By: #### U FENTS, UOXYS #### [place] [address] #### PREGU, UADIP, UDRUG #### [address] [address] UA Appear Clear Normal Clear [facility] Comment on above: Performed By: #### U FENTS, UOXYS #### [place] [address] #### PREGU, UADIP, UDRUG #### [address] [address] UA Blood Negative Normal Negative [facility] Comment on above: Performed By: #### U FENTS, UOXYS #### [place] [address] #### PREGU, UADIP, UDRUG #### [address] [address] UA Leuk Est Negative Normal Negative [facility] Comment on above: Performed By: #### U FENTS, UOXYS #### [place] [address] #### PREGU, UADIP, UDRUG #### [address] [address] UA Nitrite Negative Normal Negative [facility] Comment on above: Performed By: #### U FENTS UOXYS #### [place] [address] #### PREGU, UADIP, UDRUG #### [address] [address] UA pH 6.5 Normal 5.0 - 8.0 [facility] Comment on above: Performed By: #### U FENTFrancy UOXYS #### [place] [address] #### PREGU, UADIP, UDRUG #### [address] [address] UA Protein Negative Normal Negative [facility] Comment on above: Performed By: #### Jose WEST UOXYS #### [place] [address] #### PREGU, UADIP, UDRUG #### [address] [address] UA Spec Grav 1.010 Abnormal 1.015-1.025 [facility] Comment on above: Performed By: #### Jose WEST UOXYS #### [place] [address] #### PREGU, UADIP, UDRUG #### [address] [address] UA Specimen Type Not Given Normal [facility] Comment on above: Performed By: #### U FENTS UOXYS #### [place] [address] #### PREGU, UADIP, UDRUG #### [address] [address] UA Urobilinogen 0.2 E.U./dL Normal 0.2-1.0 [facility] Comment on above: Performed By: #### U JENNA UOXYS #### [address] [address] #### PREGU, UADIP, UDRUG #### [address] [address] Urobilinogen (U) [Mass/Vol] Negative Normal Negative [facility] Comment on above: Performed By: #### U FENTS, UOXYS #### [address] [address] #### PREGU, UADIP, UDRUG #### [address] [address] T3 SerPl-mCncon 07-11-2024 T3 [Mass/Vol] 180 ng/dL High 79-165 [facility] Comment on above: Order Comment: Speci men Type: BLOOD SPECIMEN Ordering Facility: [facility] Address: [address] [place] [address] Performed By: #### 3 053-6, 3016-3, 3027 #### [facility] CLIA [id number] [address] [place] [address] [place] T4 Free SerPl-mCncon 024 Free T4 [Mass/Vol] 1.2 ng/dL Normal 0.9-1.7 [facility] Comment on above: Order Comment: Speci men Type: BLOOD SPECIMEN Ordering Facility: [facility] Address: [address] [place] [address] Performed By: #### 3 053-6, 3016-3, 3024-7 #### [facility] CLIA [id number] [address] [place] [address] [place] TSH SerPl-aCncon 07-11-2024 TSH Qn 0.008 m[IU]/L Low 0.270-4.200 [facility] Comment on above: Order Comment: Speci men Type: BLOOD SPECIMEN Ordering Facility: [facility] Address: [address] [place] [address] Performed By: #### 3 053-6, 3016-3, 3024-7 #### [facility] CLIA [id number] [address] [place] [address] [place] T3 SerPl-mCncon 07-05-2024 T3 [Mass/Vol] 189 ng/dL High 79-165 [facility] Comment on above: Order Comment: Speci men Type: BLOOD SPECIMEN Ordering Facility: [facility] Address: [address] [place] [address] Performed By: #### 3 016-3, 3024-7, 3053-6 #### [facility] CLIA [id number] [address] [place] [address] [place] T4 Free SerPl-mCncon 024 Free T4 [Mass/Vol] 1.5 ng/dL Normal 0.9-1.7 [facility] Comment on above: Order Comment: Speci men Type: BLOOD SPECIMEN Ordering Facility: [facility] Address: [address] [place] [address] Performed By: #### 3 016-3, 3024-7, 305-6 #### [facility] CLIA [id number] [address] [place] [address] [place] THYROID PEROXIDASE ANTIBODYo n 07-05-2024 TPO Ab Qn [IU]/mL Normal <5.6 [facility] Comment on above: Order Comment: Speci men Type: BLOOD SPECIMENOrdering Facility: [facility] Address: [address] [place] [address] Result Comment: Thyr oid Peroxidase Antibody test is used as an aid in diagnosis of autoimmune thyroid disease. Clinical correlation is required. Performed By: #### M ICRO ####[facility] [id number] [place] [address] [place] THYROID STIMULATING IMMUNOGL OBULIN BLOODon 07-05-2024 Thyroid stimulating immunoglobulins actual/normal (S) [Relative mass conc] % Normal <0.55 [facility] Comment on above: Order Comment: Linda esquivel Type: BLOOD SPECIMENOrdering Facility: [facility] Address: [address] [place] [address] Result Comment: Thyr oid Stimulating Immunoglobulin test is used as an aid in diagnosis of autoimmune hyperthyroidism especially in patients with Grave's orbitopathy and dermopathy. Low positive TSH receptor stimulating antibody levels may occasionally be found in patients with autoimmune hypothyroidism. Clinical correlation is required. Performed By: #### T SIGIM ####[facility] [id number] [place] [address] [place] TSI QUALITATIVE Negative Normal Negative [facility] Comment on above: Order Comment: Linda esquivel Type: BLOOD SPECIMENOrdering Facility: [facility] Address: [address] [place] [address] Performed By: #### T SIGIM ####[facility] [id number] [place] [address] [place] TSH SerPl-aCncon 07-05-2024 TSH Qn 0.008 m[IU]/L Low 0.270-4.200 [facility] Comment on above: Order Comment: Linda esquivel Type: BLOOD SPECIMENOrdering Facility: [facility] Address: [address] [place] [address] Performed By: #### 3 016-3, 3024-7, 3053-6 ####[facility] [id number] [address] [place] CNPNon 06-21-2024 CNPN Telephone (AGGASTW) LILY QUIROZ ([id number]) 1990 F Date Time Provider Department 06/21/24 DESIREE WILLIAM During your visit today, we recorded the following information about you: Desiree William PA-C 06/21/2024 9:22 AM Signed Please help schedule RUQ Ultrasound and Gastric emptying study Will follow up with pt after both tests are done -MAR May Briley, [place] 07/06/2024 4:08 PM Signed Called and left voicemail to schedule Gastric emptying study and RUQ ultrasound. July 06, 2024 4:08 PM GWEN Saxena Bri[place], [place] 07/20/2024 3:45 PM Signed Called and left 2nd voicemail to schedule ultrasound and GES. July 20, 2024 3:45 PM Amy Rosa MA Allergies As of Date: 06/21/2024 Noted Allergy Reaction METHYLPHENIDATE 07/06/2023 1 - Mental Status Change DILAUDID (HYDROMORPHONE) 12/08/2018 11 - Vomiting KETAMINE 06/11/2021 11 - Vomiting Date Reviewed: 12/14/2023 Reviewed by: Amalia Senior RN - Fully Assessed Reason for Visit: Appointment [186] Prescriptions as of 07/20/2024 - metoprolol succinate ER (TOPROL XL) 50 mg 24 hr tablet Take 1 tablet by mouth every afternoon. Appointment needed - lactulose 20 gram/30 mL solution Take 30 mL by mouth as needed (for constipation). - bisacodyl EC (DULCOLAX, BISACODYL,) 5 mg EC tablet Take 1-2 tablets by mouth once daily as needed for constipation. for constipation. - polyethylene glycol 3350 (MIRALAX) 17 gram/dose powder Take 17 g by mouth once daily. Dissolve dose in 4 - 8 ounces of liquid and take as directed. - pantoprazole DR (PROTONIX) 40 mg tablet take 1 tablet by mouth every day - famotidine (PEPCID) 20 mg tablet take 1 tablet by mouth twice a day - lurasidone (LATUDA) 60 mg tab tablet - paliperidone ER (INVEGA) 6 mg 24 hr tablet - plecanatide (TRULANCE) 3 mg tablet Take 1 tablet (3 mg) by mouth once daily. - QUEtiapine (SEROQUEL) 300 mg tablet Take 300 mg by mouth daily at bedtime. - lamoTRIgine (LAMICTAL) 100 mg tablet Take 1 tablet by mouth twice daily. - lithium carbonate ER 300 mg CR tablet Take 2 tablets by mouth twice daily. - metFORMIN (GLUCOPHAGE) 500 mg tablet Take 1 tablet by mouth twice daily with meals. - QUEtiapine (SEROQUEL) 100 mg tablet Take 1 tablet by mouth daily at bedtime. - clonazePAM (KLONOPIN) 1 mg tablet May take 0.5 tablets by mouth once daily as needed for anxiety. May also take 1 tablet at bedtime as needed for anxiety. - topiramate (TOPAMAX) 100 mg tablet Take 100 mg by mouth daily at bedtime. - amphetamine-dextroamphe tamine XR (ADDERALL XR) 20 mg capsule Take 40 mg by mouth once daily. - aspirin, enteric coated (ASPIRIN, ENTERIC COATED) 81 mg EC tablet Take 81 mg by mouth once daily. Problem List As Of Date 06/21/2024 Noted Resolved Painful legs and moving toes [M79.604, M79.605] 04/29/2016 Bipolar affective disorder, current episode dep*01/28/2018 Anxiety disorder, unspecified [F41.9] 06/23/2016 Attention-deficit hyperactivity disorder, unspe*05/24/2016 Paroxysmal A-fib (HCC) [I48.0] 01/28/2018 Bipolar disorder (HCC) [F31.9] 08/30/2020 MTHFR mutation (methylenetetrahydrofol ate reduc* Leukocytosis [D72.829] 05/2017 Borderline personality disorder (HCC) [F60.3] 03/02/2018 Bipolar 1 disorder (HCC) [F31.9] 12/15/2022 Metabolic syndrome [E88.810] 12/15/2022 History of atrial fibrillation [Z86.79] 12/15/2022 Constipation [K59.00] 12/17/2022 Weight gain [R63.5] 12/17/2022 Anemia [D64.9] 12/17/2022 Joint pain [M25.50] 12/20/2022 Depression, acute [F32.A] 07/15/2023 07/16/2023 GERD (gastroesophageal reflux disease) [K21.9] 07/16/2023 Gender dysphoria in adult [F64.0] 07/16/2023 Prediabetes [R73.03] 07/16/2023 Preop examination [Z01.818] 12/14/2023 Encounter Status:Closed by DESIREE WILLIAM on 06/22/24 Normal [facility] CBC panel Auto (Bld)on 05-23 Erythrocyte distribution width (RBC) [Ratio] 17.2 % High 11.5-14.5 [facility] Comment on above: Performed By: #### 5 8410-2 #### MELANIA Nagy ([id number]) [facility] [address] [place] [address] Hematocrit (Bld) [Volume fraction] 36.6 % Normal 36.0-52.0 [facility] Comment on above: Performed By: #### 5 8410-2 #### MELANIA Nagy ([id number]) [facility] ([facility]) [address] [place] [address] Hemoglobin (Bld) [Mass/Vol] 12.1 g/dL Normal 12.0-17.5 [facility] Comment on above: Performed By: #### 5 8410-2 #### MELANIA Nagy ([id number]) [facility] ([facility]) [address] [place] [address] MCH (RBC) [Entitic mass] 26.6 pg Normal 26.0-34.0 [facility] Comment on above: Performed By: #### 5 8410-2 #### MELANIA Nagy ([id number]) [facility] ([facility]) [address] [place] [address] MCHC (RBC) [Mass/Vol] 33.1 g/dL Normal 32.0-36.0 [facility] Comment on above: Performed By: #### 5 8410-2 #### MELANIA Nagy ([id number]) [facility] ([facility]) [address] [place] [address] MCV (RBC) [Entitic vol] 80 fL Normal 80-100 [facility] Comment on above: Performed By: #### 5 8410-2 #### MELANIA Nagy ([id number]) [facility] ([facility]) [address] [place] [address] Nucleated RBC/100 WBC (Bld) [Ratio] 0.0 /100 WBCs Normal 0.0-0.0 [facility] Comment on above: Performed By: #### 5 8410-2 #### MELANIA Nagy ([id number]) [facility] ([facility]) [id number] [place] [address] Platelets (Bld) [#/Vol] 401 x10*3/uL Normal 150-450 [facility] Comment on above: Performed By: #### 5 8410-2 #### MELANIA Nagy ([id number]) [facility] ([facility]) [id number] [place] [address] RBC (Bld) [#/Vol] 4.55 x10*6/uL Normal 4.00-5.90 [facility] Comment on above: Performed By: #### 5 8410-2 #### MELANIA Nagy ([id number]) [facility]) [address] [place] [address] WBC (Bld) [#/Vol] 9.2 x10*3/uL Normal 4.4-11.3 [facility] [place] [facility] Comment on above: Performed By: #### 5 8410-2 #### MELANIA Nagy ([id number]) [facility]) [id number] [place] [address] Comprehensive metabolic 2000 panelon 05-23-2024 Albumin BCP dye [Mass/Vol] 4.3 g/dL Normal 3.4-5.0 [facility] Comment on above: Performed By: #### 2 4323-8 #### MELANIA Nagy ([id number]) [facility]) [id number] [place] [address] ALP [Catalytic activity/Vol] 106 U/L Normal 33-120 [facility] Comment on above: Performed By: #### 2 4323-8 #### MELANIA Nagy ([id number]) [facility]) [address] [place] [address] ALT With P-5'-P [Catalytic activity/Vol] 21 U/L Normal 7-52 [facility] Comment on above: Result Comment: Nat ents treated with Sulfasalazine may generate falsely decreased results for ALT. Performed By: #### 2 4323-8 #### MELANIA STOREY L ([id number]) [facility]) [address] [place] [address] Anion gap [Moles/Vol] 15 mmol/L Normal 10-20 [facility] Comment on above: Performed By: #### 2 4323-8 #### MELANIA Nagy ([id number]) [facility]) [address] [place] [address] AST With P-5'-P [Catalytic activity/Vol] 15 U/L Normal 9-39 [facility] Comment on above: Performed By: #### 2 4323-8 #### MELANIA STOREY L ([id number]) [facility]) [address] [place] [address] Bilirubin [Mass/Vol] 0.6 mg/dL Normal 0.0-1.2 [facility] Comment on above: Performed By: #### 2 4323-8 #### MELANIA STOREY L ([id number]) [facility]) [address] [place] [address] Calcium [Mass/Vol] 10.5 mg/dL Normal 8.6-10.6 [facility] Comment on above: Performed By: #### 2 4323-8 #### MELANIA STOREY L ([id number]) [facility]) [address] [place] [address] Chloride [Moles/Vol] 105 mmol/L Normal 98-107 [facility] Comment on above: Performed By: #### 2 4323-8 #### MELANIA STOREY L ([id number]) [facility] [address] [place] [address] CO2 [Moles/Vol] 20 mmol/L Low 21-32 [facility] Comment on above: Performed By: #### 2 4323-8 #### MELANIA Nagy ([id number]) [facility]) [address] [place] [address] Creatinine [Mass/Vol] 0.73 mg/dL Normal 0.50-1.30 [facility] Comment on above: Performed By: #### 2 4323-8 #### MELANIA Nagy ([id number]) [facility]) [id number] [place] [address] GFR/1.73 sq M.predicted MDRD (S/P/Bld) [Vol rate/Area] mL/min/{1.73_m2} Normal >60 [facility] Comment on above: Result Comment: Calc ulations of estimated GFR are performed using the 2020 CKD-EPI Study Refit equation without the race variable for the IDMS-Traceable creatinine methods. https://jasn.asnjournals.org/content/early//ASN.2020 264769 Performed By: #### 2 4323-8 #### MELANIA Nagy ([id number]) [facility] ([facility]) [id number] [place] [id number] Glucose [Mass/Vol] 108 mg/dL High 74-99 [facility] Comment on above: Performed By: #### 2 4323-8 #### MELANIA Nagy ([id number]) [facility] ([facility]) [address] [place] [address] Potassium [Moles/Vol] 3.5 mmol/L Normal 3.5-5.3 [facility] Comment on above: Performed By: #### 2 4323-8 #### MELANIA Nagy ([id number]) [facility] ([facility]) [id number] [place] [address] 60350 Protein [Mass/Vol] 6.8 g/dL Normal 6.4-8.2 [facility] Comment on above: Performed By: #### 2 4323-8 #### MELANIA Nagy ([id number]) [facility] ([facility]) [address] [place] [address] 87046 Sodium [Moles/Vol] 136 mmol/L Normal 136-145 [facility] Comment on above: Performed By: #### 2 4323-8 #### MELANIA Nagy ([id number]) [facility] ([facility]) [address] [place] [address] 27728 Urea nitrogen [Mass/Vol] 7 mg/dL Normal 6-23 [facility] Comment on above: Performed By: #### 2 4323-8 #### MELANIA Nagy ([id number]) [facility]) [address] [place] [address] 81366 Lithiumon 05-23-2024 Athalia [Moles/Vol] 1.23 mmol/L High 0.60-1.20 [facility] Comment on above: Performed By: #### 2 4323-8 #### MELANIA Nagy ([id number]) [facility]) [address] [place] [address] 63796 TSH WITH REFLEX TO FREE T4 I F ABNORMALon 05-23-2024 TSH Qn 0.01 m[IU]/L Low 0.44-3.98 [facility] Comment on above: Order Comment: TSH t esting is performed using different testing methodology at [facility] than at [facility]. Direct result comparisons should only be made within the same method. Performed By: #### T HYDS #### MELANIA Nagy ([id number]) [facility]) [address] [place] [address] 68920 Thyroxine.freeon 05-23-2024 Free T4 [Mass/Vol] 4.60 ng/dL High 0.78-1.48 [facility] Comment on above: Order Comment: Thyro xine Free testing is performed using different testing methodology at [facility] than at other [facility]. Direct result comparisons should only be made within the same method. Performed By: #### 3 024-7 #### MELANIA Nagy ([id number]) [facility]) [id number] [place] [address] 68538 Amphetamineon 04-11-2024 Amphetamine (U) [Mass/Vol] >5000 Normal [facility] Comment on above: Result Comment: INTE RPRETIVE INFORMATION: Amphetamines, Urine, Quantitative Methodology: Quantitative Liquid Chromatography-Tandem Mass Spectrometry Positive cutoff: 200 ng/mL unless specified below: Amphetamine 50 ng/mL For medical purposes only; not valid for forensic use. The absence of expected drug(s) and/or drug metabolite(s) may indicate non-compliance, inappropriate timing of specimen collection relative to drug administration, poor drug absorption, diluted/adulterated urine, or limitations of testing. The concentration value must be greater than or equal to the cutoff to be reported as positive. Interpretive questions should be directed to the laboratory. This test was developed and its performance characteristics determined by [employer]. It has not been cleared or approved by the [place] Food and Drug Administration. This test was performed in a CLIA certified laboratory and is intended for clinical purposes. Performed By: #### 1 9346-6 #### [employer]) ([id number]) [address] [place] [address] Amphetamine (U) [Mass/Vol]on 04-11-2024 Methamphetamine (U) [Mass/Vol] ug/mL [facility] Comment on above: Performed By: #### 1 9346-6 #### [facility] ([facility]) ([id number]) [address] [place] [address] Methylenedioxyamphetami ne (U) [Mass/Vol] <200 [facility] Comment on above: Performed By: #### 1 9346-6 #### [facility] ([facility]) ([id number]) [address] [place] [address] Methylenedioxyethylamph etamine (U) [Mass/Vol] <200 Normal [facility] Comment on above: Performed By: #### 1 9346-6 #### [facility] ([facility]) ([id number]) [address] [place] [address] Methylenedioxymethamphe tamine (U) [Mass/Vol] <200 Normal [facility] Comment on above: Performed By: #### 1 9346-6 #### [facility] ([facility]) ([id number]) [address] [place] [address] Phentermine Confirm (U) [Mass/Vol] <200 Normal [facility] Comment on above: Result Comment: Perf ormed By: [employer] [address] [place] [address] Stunt Man: Liam Chadwick MD, PhD CLIA Number: [id number] Performed By: #### 1 9346-6 #### [facility] ([facility]) ([id number]) [address] [place] [address] CBC W Auto Differential pane l (Bld)on 04-11-2024 Basophils (Bld) [#/Vol] 0.05 x10*3/uL Normal 0.00-0.10 [facility] Comment on above: Performed By: #### 5 7021-8 #### MELANIA Nagy ([id number]) [facility]) [address] [place] [address] 70082 Basophils/100 WBC (Bld) 0.5 % Normal 0.0-2.0 [facility] Comment on above: Performed By: #### 5 7021-8 #### MELANIA Nagy ([id number]) [facility]) [address] [place] [address] 12757 Eosinophils (Bld) [#/Vol] 0.41 x10*3/uL Normal 0.00-0.70 [facility] Comment on above: Performed By: #### 5 7021-8 #### MELANIA STOREY L ([id number]) [facility]) [address] [place] [address] 74277 Eosinophils/100 WBC (Bld) 4.3 % Normal 0.0-6.0 [facility] Comment on above: Performed By: #### 5 7021-8 #### MELANIA Nagy ([id number]) [facility]) [address] [place] [address] 48102 Erythrocyte distribution width (RBC) [Ratio] 17.1 % High 11.5-14.5 [facility] Comment on above: Performed By: #### 5 7021-8 #### MELANIA Nagy ([id number]) [facility]) [address] [place] [address] 30179 Hematocrit (Bld) [Volume fraction] 40.7 % Normal 36.0-52.0 [facility] Comment on above: Performed By: #### 5 7021-8 #### MELANIA Nagy ([id number]) [facility]) [address] [place] [address] 16659 Hemoglobin (Bld) [Mass/Vol] 12.7 g/dL Normal 12.0-17.5 [facility] Comment on above: Performed By: #### 5 7021-8 #### MELANIA Nagy ([id number]) [facility]) [address] [place] [address] 41094 Immature granulocytes (Bld) [#/Vol] 0.02 x10*3/uL Normal 0.00-0.70 [facility] Comment on above: Performed By: #### 5 7021-8 #### MELANIA Nagy ([id number]) [facility]) [address] [place] [address] 35698 Immature granulocytes/100 WBC (Bld) 0.2 % Normal 0.0-0.9 [facility] Comment on above: Result Comment: Emily ture Granulocyte Count (IG) includes promyelocytes, myelocytes and metamyelocytes but does not include bands. Percent differential counts (%) should be interpreted in the context of the absolute cell counts (cells/UL). Performed By: #### 5 7021-8 #### MELANIA Nagy ([id number]) [facility]) [address] [place] [address] 48380 Lymphocytes (Bld) [#/Vol] 1.78 x10*3/uL Normal 1.20-4.80 [facility] Comment on above: Performed By: #### 5 7021-8 #### MELANIA Nagy ([id number]) [facility]) [address] [place] [address] Lymphocytes/100 WBC (Bld) 18.7 % Normal 13.0-44.0 [facility] Comment on above: Performed By: #### 5 7021-8 #### MELANIA Nagy ([id number]) [facility]) [address] [place] [address] MCH (RBC) [Entitic mass] 25.5 pg Low 26.0-34.0 [facility] Comment on above: Performed By: #### 5 7021-8 #### MELANIA Nagy ([id number]) [facility]) [address] [place] [address] 59280 MCHC (RBC) [Mass/Vol] 31.2 g/dL Low 32.0-36.0 [facility] Comment on above: Performed By: #### 5 7021-8 #### MELANIA Nagy ([id number]) [facility]) [address] [place] [address] 71872 MCV (RBC) [Entitic vol] 82 fL Normal 80-100 [facility] Comment on above: Performed By: #### 5 7021-8 #### MELANIA Nagy ([id number]) [facility]) [address] [place] [address] 39636 Monocytes (Bld) [#/Vol] 0.89 x10*3/uL Normal 0.10-1.00 [facility] Comment on above: Performed By: #### 5 7021-8 #### MELANIA Nagy ([id number]) [facility]) [address] [place] [address] Monocytes/100 WBC (Bld) 9.3 % Normal 2.0-10.0 [facility] Comment on above: Performed By: #### 5 7021-8 #### MELANIA Nagy ([id number]) [facility]) [address] [place] [address] 96752 Neutrophils (Bld) [#/Vol] 6.37 x10*3/uL Normal 1.20-7.70 [facility] Comment on above: Result Comment: Perc ent differential counts (%) should be interpreted in the context of the absolute cell counts (cells/uL). Performed By: #### 5 7021-8 #### MELANIA Nagy ([id number]) [facility]) [address] [place] [address] 23503 Neutrophils/100 WBC (Bld) 67.0 % Normal 40.0-80.0 [facility] Comment on above: Performed By: #### 5 7021-8 #### MELANIA Nagy ([id number]) [facility]) [address] [place] [address] 00254 Nucleated RBC/100 WBC (Bld) [Ratio] 0.0 /100 WBCs Normal 0.0-0.0 [facility] Comment on above: Performed By: #### 5 7021-8 #### MELANIA Nagy ([id number]) [facility]) [address] [place] [address] 16291 Platelets (Bld) [#/Vol] 359 x10*3/uL Normal 150-450 [facility] Comment on above: Performed By: #### 5 7021-8 #### MELANIA Nagy ([id number]) [facility]) [address] [place] [address] 42156 RBC (Bld) [#/Vol] 4.98 x10*6/uL Normal 4.00-5.90 [facility] Comment on above: Performed By: #### 5 7021-8 #### MELANIA Nagy ([id number]) [facility]) [address] [place] [address] 54182 WBC (Bld) [#/Vol] 9.5 x10*3/uL Normal 4.4-11.3 [facility] Comment on above: Performed By: #### 5 7021-8 #### MELANIA Nagy ([id number]) [facility]) [address] [place] [address] 07050 Comprehensive metabolic 2000 panelon 04-11-2024 Albumin BCP dye [Mass/Vol] 4.8 g/dL Normal 3.4-5.0 [facility] Comment on above: Performed By: #### 2 4323-8 #### MELANIA Nagy ([id number]) [facility]) [address] [place] [address] 38012 ALP [Catalytic activity/Vol] 168 U/L High 33-120 [facility] Comment on above: Performed By: #### 2 4323-8 #### MELANIA Nagy ([id number]) [facility]) [address] [place] [address] 48863 ALT With P-5'-P [Catalytic activity/Vol] 9 U/L Normal 7-52 [facility] Comment on above: Result Comment: Nat ents treated with Sulfasalazine may generate falsely decreased results for ALT. Performed By: #### 2 4323-8 #### MELANIA Nagy ([id number]) [facility]) [address] [place] [address] Anion gap [Moles/Vol] 19 mmol/L Normal 10-20 [facility] Comment on above: Performed By: #### 2 4323-8 #### MELANIA STOREY L ([id number]) [facility]) [address] [place] [address] AST With P-5'-P [Catalytic activity/Vol] 15 U/L Normal 9-39 [facility] Comment on above: Performed By: #### 2 4323-8 #### MELANIA STOREY L ([id number]) [facility]) [address] [place] [address] 53500 Bilirubin [Mass/Vol] 0.5 mg/dL Normal 0.0-1.2 [facility] Comment on above: Performed By: #### 2 4323-8 #### MELANIA STOREY L ([id number]) [facility]) [address] [place] [address] 81930 Calcium [Mass/Vol] 10.5 mg/dL Normal 8.6-10.6 [facility] Comment on above: Performed By: #### 2 4323-8 #### MELANIA STOREY L ([id number]) [facility]) [address] [place] [address] 72338 Chloride [Moles/Vol] 99 mmol/L Normal 98-107 [facility] Comment on above: Performed By: #### 2 4323-8 #### MELANIA STOREY L ([id number]) [facility]) [address] [place] [address] 58799 CO2 [Moles/Vol] 20 mmol/L Low 21-32 [facility] Comment on above: Performed By: #### 2 4323-8 #### MELANIA STOREY L ([id number]) [facility]) [address] [place] [address] 04381 Creatinine [Mass/Vol] 1.07 mg/dL Normal 0.50-1.30 [facility] Comment on above: Performed By: #### 2 4323-8 #### MELANIA STOREY L ([id number]) [facility]) [address] [place] [address] 03345 Glomerular filtration rate/1.73 sq M.predicted 69 mL/min/1.73m*2 Normal >60 [facility] Comment on above: Result Comment: Calc ulations of estimated GFR are performed using the 2020 CKD-EPI Study Refit equation without the race variable for the IDMS-Traceable creatinine methods. https://jasn.asnjournals.org/content//ASN.2020 000078 Performed By: #### 2 4323-8 #### MELANIA Nagy ([id number]) [facility]) [address] [place] [address] 60910 Glucose [Mass/Vol] 83 mg/dL Normal 74-99 [facility] Comment on above: Performed By: #### 2 4323-8 #### MELANIA Nagy ([id number]) [facility]) [address] [place] [address] 75493 Potassium [Moles/Vol] 4.3 mmol/L Normal 3.5-5.3 [facility] Comment on above: Performed By: #### 2 4323-8 #### MELANIA Nagy ([id number]) [facility]) [address] [place] [address] 38635 Protein [Mass/Vol] 7.8 g/dL Normal 6.4-8.2 [facility] Comment on above: Performed By: #### 2 4323-8 #### MELANIA Nagy ([id number]) [facility]) [address] [place] [address] 70956 Sodium [Moles/Vol] 134 mmol/L Low 136-145 [facility] Comment on above: Performed By: #### 2 4323-8 #### MELANIA Nagy ([id number]) [facility] [address] [place] [address] 62286 Urea nitrogen [Mass/Vol] 5 mg/dL Low 6-23 [facility] Comment on above: Performed By: #### 2 4323-8 #### MELANIA STOREY L ([id number]) [facility]) [address] [place] [address] 93297 Drugs of abuse screen W Refl ex confirm panel (U)on 04-11-2024 Amphetamines Screen Ql (U) Positive Abnormal Presumptive Negative [facility] Comment on above: Order Comment: Drug screen results are presumptive and should not be used to assess compliance with prescribed medication. Definitive confirmatory drug testing has been added to this sample for any positive screen result and will be reported separately. Toxicology screening results are reported qualitatively. The concentration must be greater than or equal to the cutoff to be reported as positive. The concentration at which the screening test can detect an individual drug or metabolite varies. The absence of expected drug(s) and/or drug metabolite(s) may indicate non-compliance, inappropriate timing of specimen collection relative to drug administration, poor drug absorption, diluted/adulterated urine, or limitations of testing. For medical purposes only; not valid for forensic use. Interpretive questions should be directed to the laboratory medical directors. Result Comment: CUTO FF LEVEL: 500 NG/ML Cross-reactivity has been reported with high concentrations of the following drugs: buproprion, chloroquine, chlorpromazine, ephedrine, mephentermine, fenfluramine, phentermine, phenylpropanolamine, pseudoephedrine, and propranolol. Performed By: #### 8 7428-9 #### MELANIA Nagy ([id number]) [facility] [address] [place] [address] Barbiturates Screen Ql (U) Negative Normal Presumptive Negative [facility] Comment on above: Order Comment: Drug screen results are presumptive and should not be used to assess compliance with prescribed medication. Definitive confirmatory drug testing has been added to this sample for any positive screen result and will be reported separately. Toxicology screening results are reported qualitatively. The concentration must be greater than or equal to the cutoff to be reported as positive. The concentration at which the screening test can detect an individual drug or metabolite varies. The absence of expected drug(s) and/or drug metabolite(s) may indicate non-compliance, inappropriate timing of specimen collection relative to drug administration, poor drug absorption, diluted/adulterated urine, or limitations of testing. For medical purposes only; not valid for forensic use. Interpretive questions should be directed to the laboratory medical directors. Result Comment: CUTO FF LEVEL: 200 NG/ML Performed By: #### 8 7428-9 #### MELANIA Nagy ([id number]) [facility] [address] [place] [address] Benzodiazepines Ql (U) Negative Normal Presu mptive Negative [facility] Comment on above: Order Comment: Drug screen results are presumptive and should not be used to assess compliance with prescribed medication. Definitive confirmatory drug testing has been added to this sample for any positive screen result and will be reported separately. Toxicology screening results are reported qualitatively. The concentration must be greater than or equal to the cutoff to be reported as positive. The concentration at which the screening test can detect an individual drug or metabolite varies. The absence of expected drug(s) and/or drug metabolite(s) may indicate non-compliance, inappropriate timing of specimen collection relative to drug administration, poor drug absorption, diluted/adulterated urine, or limitations of testing. For medical purposes only; not valid for forensic use. Interpretive questions should be directed to the laboratory medical directors. Result Comment: CUTO FF LEVEL: 200 NG/ML Performed By: #### 8 7428-9 #### MELANIA Nagy ([id number]) [facility] [address] [place] [address] Benzoylecgonine Screen Ql (U) Negative Normal Presumptive Negative [facility] Comment on above: Order Comment: Drug screen results are presumptive and should not be used to assess compliance with prescribed medication. Definitive confirmatory drug testing has been added to this sample for any positive screen result and will be reported separately. Toxicology screening results are reported qualitatively. The concentration must be greater than or equal to the cutoff to be reported as positive. The concentration at which the screening test can detect an individual drug or metabolite varies. The absence of expected drug(s) and/or drug metabolite(s) may indicate non-compliance, inappropriate timing of specimen collection relative to drug administration, poor drug absorption, diluted/adulterated urine, or limitations of testing. For medical purposes only; not valid for forensic use. Interpretive questions should be directed to the laboratory medical directors. Result Comment: CUTO FF LEVEL: 150 NG/ML Performed By: #### 8 7428-9 #### MELANIA MEZAER L ([id number]) [facility] [address] [place] [address] Cannabinoids Screen Ql (U) Negative Normal Presumptive Negative [facility] Comment on above: Order Comment: Drug screen results are presumptive and should not be used to assess compliance with prescribed medication. Definitive confirmatory drug testing has been added to this sample for any positive screen result and will be reported separately. Toxicology screening results are reported qualitatively. The concentration must be greater than or equal to the cutoff to be reported as positive. The concentration at which the screening test can detect an individual drug or metabolite varies. The absence of expected drug(s) and/or drug metabolite(s) may indicate non-compliance, inappropriate timing of specimen collection relative to drug administration, poor drug absorption, diluted/adulterated urine, or limitations of testing. For medical purposes only; not valid for forensic use. Interpretive questions should be directed to the laboratory medical directors. Result Comment: CUTO FF LEVEL: 50 NG/ML Performed By: #### 8 7428-9 #### MELANIA Nagy ([id number]) [facility] [address] [place] [address] fentaNYL+Norfentanyl Screen Ql (U) Negative Normal Presumptive Negative [facility] Comment on above: Order Comment: Drug screen results are presumptive and should not be used to assess compliance with prescribed medication. Definitive confirmatory drug testing has been added to this sample for any positive screen result and will be reported separately. Toxicology screening results are reported qualitatively. The concentration must be greater than or equal to the cutoff to be reported as positive. The concentration at which the screening test can detect an individual drug or metabolite varies. The absence of expected drug(s) and/or drug metabolite(s) may indicate non-compliance, inappropriate timing of specimen collection relative to drug administration, poor drug absorption, diluted/adulterated urine, or limitations of testing. For medical purposes only; not valid for forensic use. Interpretive questions should be directed to the laboratory medical directors. Result Comment: CUTO FF LEVEL: 5 NG/ML Performed By: #### 8 7428-9 #### MELANIA HARMONMOTZER L ([id number]) [facility] [address] [place], [place] [address] Methadone Screen Ql (U) Negative Normal Pres umptive Negative [facility] Comment on above: Order Comment: Drug screen results are presumptive and should not be used to assess compliance with prescribed medication. Definitive confirmatory drug testing has been added to this sample for any positive screen result and will be reported separately. Toxicology screening results are reported qualitatively. The concentration must be greater than or equal to the cutoff to be reported as positive. The concentration at which the screening test can detect an individual drug or metabolite varies. The absence of expected drug(s) and/or drug metabolite(s) may indicate non-compliance, inappropriate timing of specimen collection relative to drug administration, poor drug absorption, diluted/adulterated urine, or limitations of testing. For medical purposes only; not valid for forensic use. Interpretive questions should be directed to the laboratory medical directors. Result Comment: CUTO FF LEVEL: 150 NG/ML The metabolite [id number]-[id number] (LAAM) is not detected by this method in concentrations that would be found in the urine of patients on LAAM therapy. Performed By: #### 8 7428-9 #### MELANIA Nagy ([id number]) [facility] ([facility]) [address] [place] [address] Opiates Screen Ql (U) Negative Normal Presum ptive Negative [facility] Comment on above: Order Comment: Drug screen results are presumptive and should not be used to assess compliance with prescribed medication. Definitive confirmatory drug testing has been added to this sample for any positive screen result and will be reported separately. Toxicology screening results are reported qualitatively. The concentration must be greater than or equal to the cutoff to be reported as positive. The concentration at which the screening test can detect an individual drug or metabolite varies. The absence of expected drug(s) and/or drug metabolite(s) may indicate non-compliance, inappropriate timing of specimen collection relative to drug administration, poor drug absorption, diluted/adulterated urine, or limitations of testing. For medical purposes only; not valid for forensic use. Interpretive questions should be directed to the laboratory medical directors. Result Comment: CUTO FF LEVEL: 300 NG/ML The opiate screen does not detect fentanyl, meperidine, or tramadol. Oxycodone is not consistently detected (refer to Oxycodone Screen, Urine result). Performed By: #### 8 7428-9 #### MELANIA Nagy ([id number]) [facility] ([facility]) [address] [place] [address] oxyCODONE+oxyMORphone Screen Ql (U) Negative Normal Presumptive Negative [facility] Comment on above: Order Comment: Drug screen results are presumptive and should not be used to assess compliance with prescribed medication. Definitive confirmatory drug testing has been added to this sample for any positive screen result and will be reported separately. Toxicology screening results are reported qualitatively. The concentration must be greater than or equal to the cutoff to be reported as positive. The concentration at which the screening test can detect an individual drug or metabolite varies. The absence of expected drug(s) and/or drug metabolite(s) may indicate non-compliance, inappropriate timing of specimen collection relative to drug administration, poor drug absorption, diluted/adulterated urine, or limitations of testing. For medical purposes only; not valid for forensic use. Interpretive questions should be directed to the laboratory medical directors. Result Comment: CUTO FF LEVEL: 100 NG/ML This test will accurately detect both oxycodone and oxymorphone. Performed By: #### 8 7428-9 #### MELANIA Nagy ([id number]) [facility] ([facility]) [address] [place] [address] Phencyclidine Ql (U) Negative Normal Presump tive Negative [facility] Comment on above: Order Comment: Drug screen results are presumptive and should not be used to assess compliance with prescribed medication. Definitive confirmatory drug testing has been added to this sample for any positive screen result and will be reported separately. Toxicology screening results are reported qualitatively. The concentration must be greater than or equal to the cutoff to be reported as positive. The concentration at which the screening test can detect an individual drug or metabolite varies. The absence of expected drug(s) and/or drug metabolite(s) may indicate non-compliance, inappropriate timing of specimen collection relative to drug administration, poor drug absorption, diluted/adulterated urine, or limitations of testing. For medical purposes only; not valid for forensic use. Interpretive questions should be directed to the laboratory medical directors. Result Comment: CUTO FF LEVEL: 25 NG/ML Cross-reactivity has been reported with dextromethorphan. Performed By: #### 8 7428-9 #### MELANIA Nagy ([id number]) [facility] ([facility]) [address] [place] [address] Lithiumon 04-11-2024 Athalia [Moles/Vol] 1.82 mmol/L High 0.60-1.20 [facility] Comment on above: Performed By: #### 1 4334-7 #### MELANIA Nagy ([id number]) [facility]) [address] [address] [place] [id number] Prolactinon 04-11-2024 Prolactin [Mass/Vol] 63.5 ug/L High 2.0-20.0 [facility] Comment on above: Performed By: #### 2 842-3 #### MELANIA Nagy ([id number]) [facility] ([facility]) [address] [place] [address] TSH WITH REFLEX TO FREE T4 I F ABNORMALon 04-11-2024 TSH Qn 2.90 m[IU]/L Normal 0.44-3.98 [facility] Comment on above: Order Comment: TSH t esting is performed using different testing methodology at [facility] than at other [facility]. Direct result comparisons should only be made within the same method. Performed By: #### T HYDS #### MELANIA Nagy ([id number]) [facility] ([facility]) [address] [place] [address] Psychiatry Adulton 3 Psychiatry Adult Diagnoses/Problems Health Maintenance/Risks Encounter for preventive health examination (V70.0) (Z00.00) Assessed Bipolar 1 disorder (296.7) (F31.9) Complex posttraumatic stress disorder (309.81) (F43.10) ADHD (attention deficit hyperactivity disorder), predominantly hyperactive impulsive type (314.01) (F90.1) Encounter for long-term (current) use of medications (V58.69) (Z79.899) Generalized anxiety disorder with panic attacks (300.02,300.01) (F41.1,F41.0) Insomnia, unspecified type (780.52) (G47.00) Orders ADHD (attention deficit hyperactivity disorder), predominantly hyperactive impulsive type Renew: Amphetamine-Dextroamphe t ER 20 MG Oral Capsule Extended Release 24 Hour; TAKE 2 CAPSULES DAILY Bipolar 1 disorder Stop: ARIPiprazole 10 MG Oral Tablet Bipolar 1 disorder, Insomnia, unspecified type Changed: From QUEtiapine Fumarate 200 MG Oral Tablet TAKE 1 TABLET BY MOUTH EVERYDAY AT BEDTIME To QUEtiapine Fumarate 300 MG Oral Tablet TAKE 1 TABLET Bedtime Patient Discussion/Summary -CONTINUE dextroamphetamine-amphe tamine ER 40mg (20mg capsules x2) by mouth daily as needed for focus (#30 for 30-day supply ordered today). - OK to fill today). -CONTINUE clonazepam 1mg by mouth daily as needed for breakthrough anxiety/sleep (pt has supply - DNF until 09/06/2023). -DECREASE aripiprazole to 5mg by mouth daily for mood for 7 days, THEN STOP (pt has supply). -CONTINUE lithium ER 600mg by mouth twice daily for mood stabilization (pt has supply). -CONTINUE lamotrigine 100mg by mouth twice daily for mood stabilization (pt has supply). -CONTINUE topiramate 100mg by mouth daily for mood stabilization (pt has supply). -INCREASE quetiapine to 300mg by mouth at bedtime for mood stabilization (pt has supply). -also receiving testosterone from another provider. -Admit to IOP for up to 4 days/week or 12 hours/week starting approximately 08/03/2023. -Follow-up with this provider in 1 week in [facility]. -Call Psychiatry at with issues. -For [facility] [employer] residents, [employer] is a 07/06 hotline you can call for assistance at . Please call 911 or go to your closest Emergency Room if you feel worse. This includes thoughts of hurting yourself or anyone else, or having other troubles such as hearing voices, seeing visions, or having new and scary thoughts about the people around you. Provider Impressions Lance QUIROZ is familiar to [facility], although not previously seen by this provider. Lance QUIROZ presents for a scheduled med check. Lance QUIROZ presents as a medium chronic/low acute risk for self-harm/harm to others. Pt presents predominantly depressed but also endorsing anxious symptoms. Recently hospitalized, where pt's quetiapine was increased. Given that pt now on 200mg quetiapine QHS, risk for polypharmacy also being on 10mg aripiprazole, so after discussion, mutually agreed to a cautious taper off aripiprazole while increasing quetiapine to compensate. Safety plan reviewed and provider's contact info given should issues arise. Will keep other psych meds as is while pt re-acclimates to IOP. I have reviewed the intake assessment and certify its validity. Lance QUIROZ has the physical capacity to participate and tolerate the interventions provided in the IOP schedule and curriculum. Aftercare attendance s/p discharge from [facility] was discussed. F/u in 1 week in [facility]. Impression: -cPTSD -Bipolar 1 d/o -Cluster B personality traits -Anxiety d/o, unspecified -ADHD (per hx) -Sleep disturbances PLAN -CONTINUE dextroamphetamine-amphe tamine ER 40mg (20mg capsules x2) by mouth daily as needed for focus (#30 for 30-day supply ordered today). - OK to fill today). -CONTINUE clonazepam 1mg by mouth daily as needed for breakthrough anxiety/sleep (pt has supply - DNF until 09/06/2023). -DECREASE aripiprazole to 5mg by mouth daily for mood for 7 days, THEN STOP (pt has supply). -CONTINUE lithium ER 600mg by mouth twice daily for mood stabilization (pt has supply). -CONTINUE lamotrigine 100mg by mouth twice daily for mood stabilization (pt has supply). -CONTINUE topiramate 100mg by mouth daily for mood stabilization (pt has supply). -INCREASE quetiapine to 300mg by mouth at bedtime for mood stabilization (pt has supply). -also receiving testosterone from another provider. -Admit to IOP for up to 4 days/week or 12 hours/week starting approximately 08/03/2023. -Follow-up with this provider in 1 week in [facility]. -Risks/benefits/assessm ent of medication interventions discussed with pt; pt agreeable to plan. Will continue to monitor for symptoms mgmt and SEs and adjust plan as needed. Pt reports they are currently not . -OARRS Report Last Screening Date: 08/03/2023. I have personally reviewed the OARRS report for this pt. I have considered the risks of abuse, dependence, addiction and diversion. I believe that it is clinically appropriate for this patient to be prescribed this medication based on documented diagn (more content not included)... Normal [facility] Psychiatry Adulton 3 Psychiatry Adult Diagnoses/Problems Assessed Bipolar 1 disorder (296.7) (F31.9) ADHD (attention deficit hyperactivity disorder), predominantly hyperactive impulsive type (314.01) (F90.1) Generalized anxiety disorder with panic attacks (300.02,300.01) (F41.1,F41.0) Insomnia, unspecified type (780.52) (G47.00) Orders ADHD (attention deficit hyperactivity disorder), predominantly hyperactive impulsive type Renew: Amphetamine-Dextroamphe t ER 20 MG Oral Capsule Extended Release 24 Hour; TAKE 2 CAPSULES DAILY Bipolar 1 disorder Renew: Athalia Carbonate ER 300 MG Oral Tablet Extended Release; TAKE 2 TABLET Twice daily Generalized anxiety disorder with panic attacks Renew: clonazePAM 1 MG Oral Tablet; TAKE 1 TABLET Daily prn anxiety Health Maintenance, Metabolic syndrome Renew: metFORMIN HCl - 500 MG Oral Tablet; TAKE 1 TABLET BY MOUTH TWICE DAILY WITH A MEAL Insomnia, unspecified type Renew: QUEtiapine Fumarate 200 MG Oral Tablet; TAKE 1 TABLET BY MOUTH EVERYDAY AT BEDTIME Provider Impressions A 33yo nonbinary individual domiciled w/ family, on disability w/ bipolar d/o, complex PTSD, DIONE and cluster B traits presents for follow up. Bipolar d/o - c/w lithium ER 600mg BID(f/u level), c/w lamotrigine 100mg BID, topiramate 100mg daily PTSD/panic - d/c lyrica 25mg daily, reduce to clonazepam 1mg daily PRN panic,c/w med ed, psycho ed, supportive psychotherapy, f/u 3 weeks ADHD - adderall XR 20mg BID Insomnia - quetiapine 200mg qhs Chief Complaint An interactive audio and video telecommunication system which permits real time communications between the patient (at the originating site) and provider (at the distant site) was utilized to provide this telehealth service. Bipolar d/o and anxiety History of Present Illness Pt presented on time. He went to the hospital and was kept for 1 day. He was given a number for the IOP at [facility]. It's virtual and so he might do the [facility] one. 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 He feels like he can't participate in the discord which is causing distress. Lately he's had a lot of thoughts about suicide last week but they're tapering down". He self harmed twice since the hospital on his leg. In the hospital they stopped the lyrica, reduced clonazepam to 1mg and increased quetiapine to 200mg. Review of Systems Depressive Symptoms: depressed /irritable mood, feeling worthlessness / guilt, suicidal ideation, but no guns or weapons in household. Manic Symptoms: mood is not irritable or elevated, self esteem is not grandiose or increased, no changes in need for sleep. Psychotic Symptoms: no hallucinations, no delusions. Anxiety Symptoms: excessive worry, difficulty controlling worry, increased arousal, specific phobia. Disordered Eating Symptoms: intense fear of gaining weight, poor body image, but weight is not less than 85% of ideal body weight, no amenorrhea, no restricting of diet and/or excessive exercise, no purging or laxative use. Post-traumatic stress disorder symptoms The patient is currently experiencing symptoms, emotional numbing, feeling detached, disinterest in life, hopelessness, but no flashbacks, no intrusive thoughts, no avoiding triggers, no relationship problems, no fearfulness, no startles easily, no irritability, no agitation, no inability to concentrate, no hypervigilance, no sleep disturbance, no nightmares. Inattentive Symptoms: is often disorganized, but does not have difficulty paying attention, is not easily distracted, does not avoid/dislike tasks with sustained mental effort. Other Symptoms/ Concerns: gender identity symptoms. Active Problems Problems ADHD (attention deficit hyperactivity disorder), predominantly hyperactive impulsive type (314.01) (F90.1) Bipolar 1 disorder (296.7) (F31.9) Complex posttraumatic stress disorder (309.81) (F43.10) Encounter for long-term (current) use of medications (V58.69) (Z79.899) Generalized anxiety disorder with panic attacks (300.02,300.01) (F41.1,F41.0) Insomnia, unspecified type (780.52) (G47.00) Medication management (V58.69) (Z79.899) Metabolic syndrome (277.7) (E88.81) Mood disorder (296.90) (F39) Self-injurious behavior (V69.8) (Z72.89) Past Medical History Problems History of atrial fibrillation (V12.59) (Z86.79) Family History Mother Family history of Anxiety Family history of depression (V17.0) (Z81.8) Brother Family history of Anxiety Social History Problems Never smoker No alcohol use Self-injurious behavior (V69.8) (Z72.89) Allergies Medication methylphenidate Adverse Reaction; Psychosis; Recorded By: Adriana Mccallum; 02/25/2022 3:34:53 PM Current Meds Medication NameInstruction Amphetamine-Dextroamphe t ER 20 MG Oral Capsule Extended Release 24 HourTAKE 2 CAPSULES DAILY. ARIPiprazole 10 MG Oral TabletTAKE 1 TABLET BY MOUTH EVERY DAY Azelastine HCl - 0.1 % Nasal Solution clonazePAM 1 MG Oral TabletTAKE 1.5 TABLET Twice daily Fluticasone Propion (more content not included)... Normal [facility] Psychiatry Adulton 3 Psychiatry Adult Diagnoses/Problems Assessed Bipolar 1 disorder (296.7) (F31.9) ADHD (attention deficit hyperactivity disorder), predominantly hyperactive impulsive type (314.01) (F90.1) Generalized anxiety disorder with panic attacks (300.02,300.01) (F41.1,F41.0) Insomnia, unspecified type (780.52) (G47.00) Provider Impressions A 33yo nonbinary individual domiciled w/ family, on disability w/ bipolar d/o, complex PTSD, DIONE and cluster B traits presents for follow up. Pt's family taking to ED for eval and possible admission. Bipolar d/o - c/w lithium ER 600mg BID(f/u level), c/w lamotrigine 100mg BID, quetiapine 100mg qhs, topiramate 100mg daily PTSD/panic - lyrica 25mg daily, clonazepam 1.5mg BID PRN panic,c/w med ed, psycho ed, supportive psychotherapy, f/u 1 week ADHD - adderall XR 20mg BID Insomnia - quetiapine History of Present Illness Pt presented on time. Pt took 10 clonazepam on 06/24 because he didn't want to be awake. Denies having SI. Denies thoughts of sleeping "forever". His mood is poor now. 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 Pt is tearful because these are his only friends. This happened last night. He doesn't know what the fallout will be. Some angry things were said so far. A user above his level is positive. Pt offered to step down. He's anxious about what's going to happen. He's having SI with thoughts of overdosing. Recommended pt go to ED for evaluation and possible admission. Advised that anxiety has been unmanageable and causing much of these symptoms and a hospital stay might help with stability. Spoke w/ pt's mother and advised of event on 06/24 as well as current symptoms. Recommended taking pt to ED for evaluation and possible admission. Expressed concern for pt safety based on above. Advised if not admitted then pt should start IOP again. Discussed options including [facility], [facility] virtual or [facility]. Denies firearms in home. Reminded that pt's meds should be locked up. Father agreed to take pt to ED. Will follow up in 1 week. Review of Systems Depressive Symptoms: depressed /irritable mood, feeling worthlessness / guilt, suicidal ideation, but no guns or weapons in household. Manic Symptoms: mood is not irritable or elevated, self esteem is not grandiose or increased, no changes in need for sleep. Psychotic Symptoms: no hallucinations, no delusions. Anxiety Symptoms: excessive worry, difficulty controlling worry, increased arousal, specific phobia. Disordered Eating Symptoms: intense fear of gaining weight, poor body image, but weight is not less than 85% of ideal body weight, no amenorrhea, no restricting of diet and/or excessive exercise, no purging or laxative use. Post-traumatic stress disorder symptoms The patient is currently experiencing symptoms, emotional numbing, feeling detached, disinterest in life, hopelessness, but no flashbacks, no intrusive thoughts, no avoiding triggers, no relationship problems, no fearfulness, no startles easily, no irritability, no agitation, no inability to concentrate, no hypervigilance, no sleep disturbance, no nightmares. Inattentive Symptoms: is often disorganized, but does not have difficulty paying attention, is not easily distracted, does not avoid/dislike tasks with sustained mental effort. Other Symptoms/ Concerns: gender identity symptoms. Active Problems Problems ADHD (attention deficit hyperactivity disorder), predominantly hyperactive impulsive type (314.01) (F90.1) Bipolar 1 disorder (296.7) (F31.9) Complex posttraumatic stress disorder (309.81) (F43.10) Encounter for long-term (current) use of medications (V58.69) (Z79.899) Generalized anxiety disorder with panic attacks (300.02,300.01) (F41.1,F41.0) Insomnia, unspecified type (780.52) (G47.00) Medication management (V58.69) (Z79.899) Metabolic syndrome (277.7) (E88.81) Mood disorder (296.90) (F39) Self-injurious behavior (V69.8) (Z72.89) Past Medical History Problems History of atrial fibrillation (V12.59) (Z86.79) Family History Mother Family history of Anxiety Family history of depression (V17.0) (Z81.8) Brother Family history of Anxiety Social History Problems Never smoker No alcohol use Self-injurious behavior (V69.8) (Z72.89) Allergies Medication methylphenidate Adverse Reaction; Psychosis; Recorded By: Adriana Mccallum; 02/25/2022 3:34:53 PM Current Meds Medication NameInstruction Amphetamine-Dextroamphe t ER 20 MG Oral Capsule Extended Release 24 HourTAKE 2 CAPSULES DAILY. ARIPiprazole 10 MG Oral TabletTAKE 1 TABLET BY MOUTH EVERY DAY Azelastine HCl - 0.1 % Nasal Solution clonazePAM 1 MG Oral TabletTAKE 1.5 TABLET Twice daily Fluticasone Propionate 50 MCG/ACT Nasal Suspension lamoTRIgine 100 MG Oral Tablettake 1 tablet by mouth twice a day Athalia Carbonate ER 300 MG Oral Tablet Extended ReleaseTAKE 2 TABLET Twice daily Loratadin (more content not included)... Normal [facility] COMPREHENSIVE PANELon 2022 Albumin [Mass/Vol] 4.4 g/dL Normal 3.4 - 5.0 [facility] Comment on above: Performed By: #### C MP #### [facility] [address] [place] [address] ALP [Catalytic activity/Vol] 92 U/L Normal 33 - 110 [facility] Comment on above: Performed By: #### C MP #### [facility] [address] [place] [address] ALT [Catalytic activity/Vol] 11 U/L Normal 7 - 45 [facility] Comment on above: Result Comment: Nat ents treated with Sulfasalazine may generate falsely decreased results for ALT. Performed By: #### C MP #### [facility] [address] [place] [address] Anion gap [Moles/Vol] 14 mmol/L Normal 10 - 20 [facility] Comment on above: Performed By: #### C MP #### [facility] [address] [place] [address] AST [Catalytic activity/Vol] 14 U/L Normal 9 - 39 [facility] Comment on above: Performed By: #### C MP #### [facility] [address] [place] [address] Bilirubin [Mass/Vol] 0.4 mg/dL Normal 0.0 - 1.2 [facility] [place] Comment on above: Performed By: #### C MP #### [place] [address] [place] [address] Calcium [Mass/Vol] 10.9 mg/dL High 8.6 - 10.6 [facility] Comment on above: Performed By: #### C MP #### [place] [address] [place] [address] Chloride [Moles/Vol] 106 mmol/L Normal 98 - 107 [facility] [place] Comment on above: Performed By: #### C MP #### [place] [address] [place] [address] Creatinine [Mass/Vol] 0.93 mg/dL Normal 0.50 - 1.05 [facility] Comment on above: Performed By: #### C MP #### [facility] [address] [place] [address] GFR/1.73 sq M.predicted among non-blacks MDRD (S/P/Bld) [Vol rate/Area] 82 mL/min/{1.73_m2} Normal >90 [facility] Comment on above: Result Comment: CALC ULATIONS OF ESTIMATED GFR ARE PERFORMED USING THE 2020 CKD-EPI STUDY REFIT EQUATION WITHOUT THE RACE VARIABLE FOR THE IDMS-TRACEABLE CREATININE METHODS. https://jasn.asnjournals.org/content/early/ASN.2020 711849 Performed By: #### C MP #### [facility] [address] [place] [address] Glucose [Mass/Vol] 107 mg/dL High 74 - 99 [facility] Comment on above: Performed By: #### C MP #### [facility] [address] [place] [address] HCO3 (Bld) [Moles/Vol] 22 mmol/L Normal 21 - 32 [facility] Comment on above: Performed By: #### C MP #### [facility] [address] [place] [address] Potassium [Moles/Vol] 4.7 mmol/L Normal 3.5 - 5.3 [facility] Comment on above: Performed By: #### C MP #### [facility] [address] [place] [address] Protein [Mass/Vol] 7.2 g/dL Normal 6.4 - 8.2 [facility] Comment on above: Performed By: #### C MP #### [facility] [address] [place] [address] Sodium [Moles/Vol] 137 mmol/L Normal 136 - 145 [facility] Comment on above: Performed By: #### C MP #### [facility] [address] [place] [address] Urea nitrogen [Mass/Vol] 7 mg/dL Normal 6 - 23 [facility] Comment on above: Performed By: #### C MP #### [facility] [address] [place] [address] TESTOSTERONEon 07-09-2023 Testosterone [Mass/Vol] ng/dL Normal 0 - 70 [facility] Comment on above: Result Comment: Nand rolone decanoate, 11 Beta-hydroxytestosterone, androstenedione, testosterone propionate and 25-[id number] strongly cross react with this test method. Biotin interference may cause falsely elevated results. Patients taking a Biotin dose of up to 5 mg/day should refrain from taking Biotin for 24 hours before sample collection. Providers may contact their local laboratory for further information. Testing by a more sensitive method (Testosterone Total LC-MS/MS) is recommended for accurate quantification of testosterone levels less than 60 ng/dL. Performed By: #### T EST #### [facility] [address] [place] [address] CBC AND DIFFERENTIALon 07-08 % AUTOMATED IMMATURE GRAN 0.4 % Normal 0.0 - 0.9 [facility] Comment on above: Result Comment: Emily ture Granulocyte Count (IG) includes promyelocytes, myelocytes and metamyelocytes but does not include bands. Percent differential counts (%) should be interpreted in the context of the absolute cell counts (cells/L). Performed By: #### C BCDF #### [facility] [address] [place] [address] Basophils (Bld) [#/Vol] 0.05 10*3/uL Normal 0.00 - 0.1 0 [facility] Comment on above: Performed By: #### C BCDF #### [facility] [address] [place] [address] Basophils/100 WBC (Bld) 0.5 % Normal 0.0 - 2.0 [facility] Comment on above: Performed By: #### C BCDF #### [facility] [address] [place] [address] Eosinophils (Bld) [#/Vol] 0.55 10*3/uL Normal 0.00 - 0.70 [facility] Comment on above: Performed By: #### C BCDF #### [facility] [address] [place] [address] Eosinophils/100 WBC (Bld) 5.5 % Normal 0.0 - 6.0 [facility] Comment on above: Performed By: #### C BCDF #### [facility] [address] [place] [address] Erythrocyte distribution width (RBC) [Ratio] 13.5 % Normal 11.5 - 14.5 [facility] Comment on above: Performed By: #### C BCDF #### [facility] [address] [place] [address] Hematocrit (Bld) [Volume fraction] 38.8 % Normal 36.0 - 46.0 [facility] Comment on above: Performed By: #### C BCDF #### [facility] [address] [place] [address] Hemoglobin (Bld) [Mass/Vol] 12.4 g/dL Normal 12.0 - 16.0 [facility] Comment on above: Performed By: #### C BCDF #### [facility] [address] [place] [address] Lymphocytes (Bld) [#/Vol] 2.36 10*3/uL Normal 1.20 - 4.80 [facility] Comment on above: Performed By: #### C BCDF #### [facility] [address] [place] [address] Lymphocytes/100 WBC (Bld) 23.6 % Normal 13.0 - 44.0 [facility] Comment on above: Performed By: #### C BCDF #### [facility] [address] [place] [address] MCHC (RBC) [Mass/Vol] 32.0 g/dL Normal 32.0 - 36.0 [facility] Comment on above: Performed By: #### C BCDF #### [facility] [address] [place] [address] MCV (RBC) [Entitic vol] 89 fL Normal 80 - 100 [facility] Comment on above: Performed By: #### C BCDF #### [facility] [address] [place] [address] Monocytes (Bld) [#/Vol] 0.85 10*3/uL Normal 0.10 - 1.0 0 [facility] Comment on above: Performed By: #### C BCDF #### [facility] [address] [place] [address] Monocytes/100 WBC (Bld) 8.5 % Normal 2.0 - 10.0 [facility] Comment on above: Performed By: #### C BCDF #### [facility] [address] [place] [address] Neutrophils (Bld) [#/Vol] 6.17 10*3/uL Normal 1.20 - 7.70 [facility] Comment on above: Performed By: #### C BCDF #### [facility] [address] [place] [address] Neutrophils/100 WBC (Bld) 61.5 % Normal 40.0 - 80.0 [facility] Comment on above: Performed By: #### C BCDF #### [facility] [address] [place] [address] NUCLEATED RBC 0.0 /100 WBC Normal 0.0-0.0 [facility] Comment on above: Performed By: #### C BCDF #### [facility] [address] [place] [address] Platelets (Bld) [#/Vol] 331 10*3/uL Normal 150 - 450 [facility] Comment on above: Performed By: #### C BCDF #### [facility] [address] [place], [place] RBC 4.36 x10E12/L Normal 4.00 - 5.20 [facility] Comment on above: Performed By: #### C BCDF #### [facility] [address] [place] [address] WBC (Bld) [#/Vol] 10.0 10*3/uL Normal 4.4 - 11.3 [facility] Comment on above: Performed By: #### C BCDF #### [facility] [address] [place] [address] Lab Specimen Source Normal [facility] Comment on above: Performed By: #### C BCDF #### [facility] [address] [place], [place] Performed By: #### T EST #### [facility] [address] [place], [place] Complete Blood Count + Diffe rentialon 07-08-2023 Basophils/100 WBC (Bld) 0.5 % 0.0 - 2.0 [facility] [address] [place] Work Phone: [phone] Erythrocyte distribution width (RBC) [Ratio] 13.5 % See Below [facility] [address] [place] [address] Work Phone: [phone] Comment on above: Reference Range: 11. 5 - 14.5 Hematocrit (Bld) [Volume fraction] 38.8 % See Below [facility] [address] [place] [address] Work Phone: [phone] Comment on above: Reference Range: 36. 0 - 46.0 Hemoglobin (Bld) [Mass/Vol] 12.4 g/dL See Below [facility] [address] [place] [address] Work Phone: [phone] Comment on above: Reference Range: 12. 0 - 16.0 Lymphocytes/100 WBC (Bld) 23.6 % See Below [facility] [address] [place] [address] Work Phone: [phone] Comment on above: Reference Range: 13. 0 - 44.0 MCHC (RBC) [Mass/Vol] 32.0 g/dL See Below [facility] [address] [place] [address] Work Phone: [phone] Comment on above: Reference Range: 32. 0 - 36.0 MCV (RBC) [Entitic vol] 89 fL 80 - 100 [facility] [address] [place] [address] Work Phone: [phone] Monocytes/100 WBC (Bld) 8.5 % 2.0 - 10.0 [facility] [address] [place] [address] Work Phone: Neutrophils/100 WBC (Bld) 61.5 % See Below [facility] [address] [place] [address] Work Phone: [phone] Comment on above: Reference Range: 40. 0 - 80.0 Platelets (Bld) [#/Vol] 331 10*3/uL 150 - 450 [facility] [address] [place] [address] Work Phone: [phone] RBC (Bld) [#/Vol] 4.36 {x10E12/L} See Below [facility] [address] [place] [address] Work Phone: [phone] Comment on above: Reference Range: 4.0 0 - 5.20 WBC (Bld) [#/Vol] 10.0 10*3/uL 4.4 - 11.3 [facility] [address] [place] [address] Work Phone: [phone] Comment on above: SOURCE: Complete Blood Count + Differential 0.05 {x10E9/L} See Below [facility] [address] [place] [address] Work Phone: [phone] Comment on above: Reference Range: 0.0 0 - 0.10 Complete Blood Count + Differential 0.55 {x10E9/L} See Below [facility] [address] [place] [address] Work Phone: [phone] Comment on above: Reference Range: 0.0 0 - 0.70 Complete Blood Count + Differential 0.85 {x10E9/L} See Below [facility] [address] [place] [address] Work Phone: [phone] Comment on above: Reference Range: 0.1 0 - 1.00 Complete Blood Count + Differential 2.36 {x10E9/L} See Below [facility] [address] [place] [address] Work Phone: [phone] Comment on above: Reference Range: 1.2 0 - 4.80 Complete Blood Count + Differential 6.17 {x10E9/L} See Below [facility] [address] [place] [address] Work Phone: [phone] Comment on above: Reference Range: 1.2 0 - 7.70 Complete Blood Count + Differential 5.5 % 0.0 - 6.0 [facility] [address] [place] [address] Work Phone: [phone] Complete Blood Count + Differential 0.4 % 0.0 - 0.9 [facility] [address] [place] [address] Work Phone: [phone] Comment on above: Immature Granulocyte Count (IG) includes promyelocytes, myelocytes and metamyelocytes but does not include bands. Percent differential counts (%) should be interpreted in the context of the absolute cell counts (cells/L). Complete Blood Count + Differential 0.0 {/100_WBC} 0.0-0.0 [facility] [address] [place] [address] Work Phone: [phone] Laboratory - Chemistry and C hemistry - challengeon 07-08-2023 Albumin BCP dye [Mass/Vol] 4.4 g/dL 3.4 - 5.0 [facility] [address] [place] [address] Work Phone: [phone] ALP [Catalytic activity/Vol] 92 U/L 33 - 110 [facility] [address] [place] [address] Work Phone: [phone] ALT With P-5'-P [Catalytic activity/Vol] 11 U/L 7 - 45 [facility] [address] [place] [address] Work Phone: [phone] Comment on above: Patients treated wit h Sulfasalazine may generate falsely decreased results for ALT. Anion gap [Moles/Vol] 14 mmol/L 10 - 20 [facility] [address] [place] [address] Work Phone: [phone] AST With P-5'-P [Catalytic activity/Vol] 14 U/L 9 - 39 [facility] [address] [place] [address] Work Phone: Bilirubin [Mass/Vol] 0.4 mg/dL 0.0 - 1.2 [facility] [address] [place] [address] Work Phone: Calcium [Mass/Vol] 10.9 mg/dL above high threshold 8.6 - 10.6 [facility] [address] [place] [address] Work Phone: Chloride [Moles/Vol] 106 mmol/L 98 - 107 [facility] [address] [place] [address] Work Phone: CO2 [Moles/Vol] 22 mmol/L 21 - 32 [facility] [address] [place] [address] Work Phone: Creatinine [Mass/Vol] 0.93 mg/dL See Below [facility] [address] [place] [address] Work Phone: [phone] Comment on above: Reference Range: 0.5 0 - 1.05 Glucose [Mass/Vol] 107 mg/dL above high threshold 74 - 99 [facility] [address] [place] [address] Work Phone: Potassium [Moles/Vol] 4.7 mmol/L 3.5 - 5.3 [facility] [address] [place] [address] Work Phone: Protein [Mass/Vol] 7.2 g/dL 6.4 - 8.2 [facility] [address] [place] [address] Work Phone: Sodium [Moles/Vol] 137 mmol/L 136 - 145 [facility] [address] [place] [address] Work Phone: [phone] Urea nitrogen [Mass/Vol] 7 mg/dL 6 - 23 [facility] [address] [place] [address] Work Phone: No Panel Informationon 07-08 82 {mL/min/1.73m2} >90 [facility] [place] Work Phone: Comment on above: CALCULATIONS OF STEVO MATED GFR ARE PERFORMED USING THE 2020 CKD-EPI STUDY REFIT EQUATION WITHOUT THE RACE VARIABLE FOR THE IDMS-TRACEABLE CREATININE METHODS.https://jasn.asnjournals.org/content/early/ ASN.2705670737 Testosterone, Levelon 2022 Testosterone [Mass/Vol] ng/dL 0 - 70 [facility] [place] Work Phone: Comment on above: SOURCE: Nandrolone d ecanoate, 11 Beta-hydroxytestosterone, androstenedione, testosterone propionate and [id number]-[id number] strongly cross react with this test method. Biotin interference may cause falsely elevated results. Patients taking a Biotin dose of up to 5 mg/day should refrain from taking Biotin for 24 hours before sample collection. Providers may contact their local laboratory for further information. Testing by a more sensitive method (Testosterone Total LC-MS/MS) is recommended for accurate quantification of testosterone levels less than 60 ng/dL. Psychiatry Adulton 3 Psychiatry Adult Diagnoses/Problems Assessed Generalized anxiety disorder with panic attacks (300.02,300.01) (F41.1,F41.0) Bipolar 1 disorder (296.7) (F31.9) ADHD (attention deficit hyperactivity disorder), predominantly hyperactive impulsive type (314.01) (F90.1) Insomnia, unspecified type (780.52) (G47.00) Orders ADHD (attention deficit hyperactivity disorder), predominantly hyperactive impulsive type Renew: Amphetamine-Dextroamphe t ER 20 MG Oral Capsule Extended Release 24 Hour; TAKE 2 CAPSULES DAILY Bipolar 1 disorder Renew: Topiramate 100 MG Oral Tablet; TAKE 1 TABLET AT BEDTIME Generalized anxiety disorder with panic attacks Start: Pregabalin 25 MG Oral Capsule; TAKE 1 CAPSULE Daily Renew: clonazePAM 1 MG Oral Tablet; TAKE 1.5 TABLET Twice daily Provider Impressions A 33yo nonbinary individual domiciled w/ family, on disability w/ bipolar d/o, complex PTSD, DIONE and cluster B traits presents for follow up. Patient is moderate acute and moderate chronic risk of suicide. Static risk factors include , gender dysphoria. Dynamic risk factors include above psychiatric symptoms which we are addressing with medication. Protective factors include no drug abuse, rational thinking intact, good social support, help seeking, no active SI today, hopeful, future oriented and no guns at home or access to meds. Bipolar d/o - c/w lithium ER 600mg BID(f/u level), c/w lamotrigine 100mg BID, quetiapine 100mg qhs, increase to topiramate 100mg daily PTSD/panic - start lyrica 25mg daily, clonazepam 1.5mg BID PRN panic,c/w med ed, psycho ed, supportive psychotherapy, f/u 4 weeks ADHD - adderall XR 20mg BID Insomnia - quetiapine Pt was educated that if they feel a danger to themselves or others to go to the nearest emergency room or call [phone]. Chief Complaint An interactive audio and video telecommunication system which permits real time communications between the patient (at the originating site) and provider (at the distant site) was utilized to provide this telehealth service. Bipolar d/o and anxiety History of Present Illness Pt presented on time. He was able to increase the abilify. The hunger came back and it lasts all day. Mood "better" after making the change. Denies SI/NSSI since making the change. Anxiety has been "pretty high" since last session. He feels it's situational. A spider came down from the ceiling onto his desk so he's been avoiding it. Something fell in the garage and made a noise when no one was home. He's feeling paranoid that someone was in the garage and made it fall. The family went and checked and the tiller fell down but he's struggling to get over it. He's taking the clonazepam nightly and the rest are as needed. Suggested adding something for anxiety. Since SSRIs haven't been very helpful and gabapentin may have caused some depression, suggested lyrica. Reviewed risks. I have personally reviewed the [place] report for LILY QUIROZ. I have considered the risks of abuse, dependence, addiction and diversion. I have the following concerns: none. Is the patient prescribed a combination of a benzodiazepine and opioid? No. Last urine drug screening date/ordered today: 02/10/2023 Date of the last Controlled Substance Agreement: 01/29/2023 Review of Systems Depressive Symptoms: not depressed or irritable, no loss of interest, not feeling worthless or guilty, no suicidal ideation, no guns or weapons in household. Manic Symptoms: mood is not irritable or elevated, self esteem is not grandiose or increased, no changes in need for sleep. Psychotic Symptoms: no hallucinations, no delusions. Anxiety Symptoms: excessive worry, difficulty controlling worry, specific phobia, but no panic attacks, no increase in arousal, no sleep disturbances due to worry. Disordered Eating Symptoms: intense fear of gaining weight, poor body image, but weight is not less than 85% of ideal body weight, no amenorrhea, no restricting of diet and/or excessive exercise, no purging or laxative use. Post-traumatic stress disorder symptoms The patient is currently experiencing symptoms, emotional numbing, feeling detached, disinterest in life, hopelessness, but no flashbacks, no intrusive thoughts, no avoiding triggers, no relationship problems, no fearfulness, no startles easily, no irritability, no agitation, no inability to concentrate, no hypervigilance, no sleep disturbance, no nightmares. Inattentive Symptoms: is often disorganized, but does not have difficulty paying attention, is not easily distracted, does not avoid/dislike tasks with sustained mental effort. Other Symptoms/ Concerns: gender identity symptoms. Active Problems Problems ADHD (attention deficit hyperactivity disorder), predominantly hyperactive impulsive type (314.01) (F90.1) Bipolar 1 disorder (296.7) (F31.9) Complex posttraumatic stress disorder (309.81) (F43.10) Encounter for long-term (current) use of medications (V58.69) (Z79.899) Generalized anxiety disord (more content not included)... Normal [facility] Psychiatry Adulton 3 Psychiatry Adult Diagnoses/Problems Assessed Bipolar 1 disorder (296.7) (F31.9) Complex posttraumatic stress disorder (309.81) (F43.10) ADHD (attention deficit hyperactivity disorder), predominantly hyperactive impulsive type (314.01) (F90.1) Generalized anxiety disorder with panic attacks (300.02,300.01) (F41.1,F41.0) Insomnia, unspecified type (780.52) (G47.00) Orders ADHD (attention deficit hyperactivity disorder), predominantly hyperactive impulsive type Renew: Amphetamine-Dextroamphe t ER 20 MG Oral Capsule Extended Release 24 Hour; TAKE 2 CAPSULES DAILY Bipolar 1 disorder Renew: ARIPiprazole 15 MG Oral Tablet; TAKE 0.5 TABLET Daily Renew: lamoTRIgine 100 MG Oral Tablet; take 1 tablet by mouth twice a day Generalized anxiety disorder with panic attacks Renew: clonazePAM 1 MG Oral Tablet; TAKE 1.5 TABLET Twice daily Provider Impressions A 33yo nonbinary individual domiciled w/ family, on disability w/ bipolar d/o, complex PTSD, DIONE and cluster B traits presents for follow up. Patient is moderate acute and moderate chronic risk of suicide. Static risk factors include , gender dysphoria. Dynamic risk factors include above psychiatric symptoms which we are addressing with medication. Protective factors include no drug abuse, rational thinking intact, good social support, help seeking, no active SI today, hopeful, future oriented and no guns at home or access to meds. Bipolar d/o - c/w lithium ER 600mg BID(f/u level), c/w lamotrigine 100mg BID, quetiapine 100mg qhs, topiramate 75mg daily PTSD/panic - clonazepam 1.5mg BID PRN panic,c/w med ed, psycho ed, supportive psychotherapy, f/u 4 weeks ADHD - adderall XR 20mg BID Insomnia - quetiapine Pt was educated that if they feel a danger to themselves or others to go to the nearest emergency room or call [phone]. Chief Complaint An interactive audio and video telecommunication system which permits real time communications between the patient (at the originating site) and provider (at the distant site) was utilized to provide this telehealth service. Bipolar d/o and anxiety History of Present Illness Pt presented on time. Mood "up and down" since last session. The anxiety is a little better. He has some bouts of depression but he has fewer bad days. He had 1 NSSI event last week of cutting on his leg. Denies SI since last session. Discussed coming out to his parents as the primary source of mood changes. Denies plan or intent. Sleeping well. Appetite good. Taking medicine as prescribed. He's wearing a binder when he goes out. 'I can't stand my chest". Pt asked about the steps for top surgery. Encouraged pt to work on DBT skills w/ therapist to eliminate NSSI behavior for when he might pursue top surgery. Review of Systems Depressive Symptoms: depressed /irritable mood, but no loss of interest, not feeling worthless or guilty, no suicidal ideation, no guns or weapons in household. Manic Symptoms: mood is not irritable or elevated, self esteem is not grandiose or increased, no changes in need for sleep. Psychotic Symptoms: no hallucinations, no delusions. Anxiety Symptoms: excessive worry, difficulty controlling worry, specific phobia, but no panic attacks, no increase in arousal, no sleep disturbances due to worry. Disordered Eating Symptoms: intense fear of gaining weight, poor body image, but weight is not less than 85% of ideal body weight, no amenorrhea, no restricting of diet and/or excessive exercise, no purging or laxative use. Post-traumatic stress disorder symptoms The patient is currently experiencing symptoms, emotional numbing, feeling detached, disinterest in life, hopelessness, but no flashbacks, no intrusive thoughts, no avoiding triggers, no relationship problems, no fearfulness, no startles easily, no irritability, no agitation, no inability to concentrate, no hypervigilance, no sleep disturbance, no nightmares. Inattentive Symptoms: is often disorganized, but does not have difficulty paying attention, is not easily distracted, does not avoid/dislike tasks with sustained mental effort. Other Symptoms/ Concerns: gender identity symptoms. Active Problems Problems ADHD (attention deficit hyperactivity disorder), predominantly hyperactive impulsive type (314.01) (F90.1) Bipolar 1 disorder (296.7) (F31.9) Complex posttraumatic stress disorder (309.81) (F43.10) Encounter for long-term (current) use of medications (V58.69) (Z79.899) Generalized anxiety disorder with panic attacks (300.02,300.01) (F41.1,F41.0) Insomnia, unspecified type (780.52) (G47.00) Medication management (V58.69) (Z79.899) Metabolic syndrome (277.7) (E88.81) Mood disorder (296.90) (F39) Self-injurious behavior (V69.8) (Z72.89) Past Medical History Problems History of atrial fibrillation (V12.59) (Z86.79) Family History Mother Family history of Anxiety Family history of depression (V17.0) (Z81.8) Brother Family history of Anxiety Social History Problems Never smo (more content not included)... Normal [facility] Psychiatry Adulton 3 Psychiatry Adult Diagnoses/Problems Assessed ADHD (attention deficit hyperactivity disorder), predominantly hyperactive impulsive type (314.01) (F90.1) Bipolar 1 disorder (296.7) (F31.9) Complex posttraumatic stress disorder (309.81) (F43.10) Generalized anxiety disorder with panic attacks (300.02,300.01) (F41.1,F41.0) Orders Generalized anxiety disorder with panic attacks Renew: clonazePAM 1 MG Oral Tablet; TAKE 1.5 TABLET Twice daily Provider Impressions A 33yo nonbinary individual domiciled w/ family, on disability w/ bipolar d/o, complex PTSD, DIONE and cluster B traits presents for follow up. Patient is moderate acute and moderate chronic risk of suicide. Static risk factors include , gender dysphoria. Dynamic risk factors include above psychiatric symptoms which we are addressing with medication. Protective factors include no drug abuse, rational thinking intact, good social support, help seeking, no active SI today, hopeful, future oriented and no guns at home or access to meds. Bipolar d/o - c/w lithium ER 600mg BID(f/u level), c/w lamotrigine 100mg BID, quetiapine 100mg qhs, topiramate 75mg daily PTSD/panic - increase to clonazepam 1.5mg BID PRN panic,c/w med ed, psycho ed, supportive psychotherapy, f/u 4 weeks ADHD - adderall XR 20mg BID Insomnia - quetiapine Pt was educated that if they feel a danger to themselves or others to go to the nearest emergency room or call [phone]. Chief Complaint An interactive audio and video telecommunication system which permits real time communications between the patient (at the originating site) and provider (at the distant site) was utilized to provide this telehealth service. Bipolar d/o History of Present Illness Pt presented on time. Mood "things have been not great" since last session. He's having breakthrough depressed mood. Anxiety is an 8/10 "all the time". He feels the anxiety may be causing the depressed mood. He's having arachnophobia. He's also having intrusive thoughts about safety. He worries about people murdering him. He's still seeing his new therapist. He came out to his parents earlier this month. There's tension now. He cut once 2 weeks ago on his leg. He has an urge yesterday but didn't. He's had some passive SI. Denies plan or intent. Sleeping well. Appetite good. Taking medicine as prescribed. He likes his new therapist. They met 3 times so far. I have personally reviewed the OAR[place] report for LILY QUIROZ. I have considered the risks of abuse, dependence, addiction and diversion. I have the following concerns: none. Is the patient prescribed a combination of a benzodiazepine and opioid? No. Last urine drug screening date/ordered today: 02/10/2023 Controlled Substance Agreement: I have printed this form and reviewed each line item with the patient and the patient has verbalized understanding. Date of the last Controlled Substance Agreement: 01/29/2023 BENZODIAZEPINES What is the patient?s goal of therapy? anxiety tx. Is this being achieved with current treatment? yes. Activities of Daily Living: Yes, it is my opinion that this patient is benefitting from benzodiazepine therapy. Physical functioning: Same Family relationships: Same Social relationships: Same Mood: Same Sleep patterns: Same Overall functioning: Same STIMULANTS What is the patient?s goal of therapy? adhd tx. Is this being achieved with current treatment? yes. Activities of Daily Living: Yes, it is my opinion that this patient is benefitting from stimulant therapy . Physical functioning: Same Family relationships: Same Social relationships: Same Mood: Same Sleep patterns: Same Overall functioning: Same Review of Systems Depressive Symptoms: depressed /irritable mood, but no loss of interest, not feeling worthless or guilty, no suicidal ideation, no guns or weapons in household. Manic Symptoms: mood is not irritable or elevated, self esteem is not grandiose or increased, no changes in need for sleep. Psychotic Symptoms: no hallucinations, no delusions. Anxiety Symptoms: panic attacks, excessive worry, difficulty controlling worry, increased arousal, sleep disturbances due to worry, specific phobia. Disordered Eating Symptoms: intense fear of gaining weight, poor body image, but weight is not less than 85% of ideal body weight, no amenorrhea, no restricting of diet and/or excessive exercise, no purging or laxative use. Post-traumatic stress disorder symptoms The patient is currently experiencing symptoms, emotional numbing, feeling detached, disinterest in life, hopelessness, but no flashbacks, no intrusive thoughts, no avoiding triggers, no relationship problems, no fearfulness, no startles easily, no irritability, no agitation, no inability to concentrate, no hypervigilance, no sleep disturbance, no nightmares. Inattentive Symptoms: is often disorganized, but does not have difficulty paying attention, is not easily distracted, does not avoid/dislike tasks with (more content not included)... Normal [facility] COMPREHENSIVE PANELon 2022 Albumin [Mass/Vol] 4.3 g/dL Normal 3.4 - 5.0 [facility] Comment on above: Performed By: #### C BCDF #### [facility] [address] [place] [address] ALP [Catalytic activity/Vol] 90 U/L Normal 33 - 110 [facility] Comment on above: Performed By: #### C BCDF #### [facility] [address] [place] [address] ALT [Catalytic activity/Vol] 8 U/L Normal 7 - 45 [facility] Comment on above: Result Comment: Nat ents treated with Sulfasalazine may generate falsely decreased results for ALT. Performed By: #### C BCDF #### [facility] [address] [place] [address] Anion gap [Moles/Vol] 12 mmol/L Normal 10 - 20 [facility] Comment on above: Performed By: #### C BCDF #### [facility] [address] [place] [address] AST [Catalytic activity/Vol] 13 U/L Normal 9 - 39 [facility] Comment on above: Performed By: #### C BCDF #### [facility] [address] [place] [address] Bilirubin [Mass/Vol] 0.3 mg/dL Normal 0.0 - 1.2 [facility] [place] Comment on above: Performed By: #### C BCDF #### [facility] [address] [place] [address] Calcium [Mass/Vol] 10.3 mg/dL Normal 8.6 - 10.6 [facility] Comment on above: Performed By: #### C BCDF #### [facility] [address] [place] [address] Chloride [Moles/Vol] 107 mmol/L Normal 98 - 107 [facility] [place] Comment on above: Performed By: #### C BCDF #### [facility] [address] [place] [address] Creatinine [Mass/Vol] 0.69 mg/dL Normal 0.50 - 1.05 [facility] Comment on above: Performed By: #### C BCDF #### [facility] [address] [place] [address] eGFR FEMALE >90 Normal >90 [facility] Comment on above: Result Comment: CALC ULATIONS OF ESTIMATED GFR ARE PERFORMED USING THE 2020 CKD-EPI STUDY REFIT EQUATION WITHOUT THE RACE VARIABLE FOR THE IDMS-TRACEABLE CREATININE METHODS. https://jasn.asnjournals.org/content//ASN.2020 030075 Performed By: #### C BCDF #### [facility] [address] [place] [address] Glucose [Mass/Vol] 103 mg/dL High 74 - 99 [facility] Comment on above: Performed By: #### C BCDF #### [facility] [address] [place] [address] HCO3 (Bld) [Moles/Vol] 24 mmol/L Normal 21 - 32 [facility] Comment on above: Performed By: #### C BCDF #### [facility] [address] [place] [address] Potassium [Moles/Vol] 4.4 mmol/L Normal 3.5 - 5.3 [facility] Comment on above: Performed By: #### C BCDF #### [facility] [address] [place] [address] Protein [Mass/Vol] 7.3 g/dL Normal 6.4 - 8.2 [facility] Comment on above: Performed By: #### C BCDF #### [facility] [address] [place] [address] Sodium [Moles/Vol] 139 mmol/L Normal 136 - 145 [facility] Comment on above: Performed By: #### C BCDF #### [facility] [address] [place] [address] Urea nitrogen [Mass/Vol] 5 mg/dL Low 6 - 23 [facility] Comment on above: Performed By: #### C BCDF #### [facility] [address] [place] [address] LIPID PANEL (CORONARY RISK 2 )on 04-07-2023 Cholesterol [Mass/Vol] 177 mg/dL Normal 0 - 199 [facility] Comment on above: Result Comment: . AGE DESIRABLE BORDERLINE HIGH HIGH 0-19 Y 0 - 169 170 - 199 >/= 200 20-24 Y 0 - 189 190 - 224 >/= 225 >24 Y 0 - 199 200 - 239 >/= 240 All ranges are based on fasting samples. Specific therapeutic targets will vary based on patient-specific cardiac risk. . Pediatric guidelines reference:Pediatrics 2011, 128(S5). Adult guidelines reference: NCEP ATPIII Guidelines, CORINNE 2001, 258:2486-97 . Venipuncture immediately after or during the administration of Metamizole may lead to falsely low results. Testing should be performed immediately prior to Metamizole dosing. Performed By: #### L IPID #### [facility] [address] [place] [address] Cholesterol in HDL [Mass/Vol] 37.2 mg/dL Abnormal [facility] Comment on above: Result Comment: . AGE VERY LOW LOW NORMAL HIGH 0-19 Y < 35 < 40 40-45 ---- 20-24 Y ---- < 40 >45 ---- >24 Y ---- < 40 40-60 >60 . Performed By: #### L IPID #### [facility] [address] [place] [address] Cholesterol in LDL [Mass/Vol] 120 mg/dL High 0 - 99 [facility] Comment on above: Result Comment: . NEAR BORD AGE DESIRABLE OPTIMAL HIGH HIGH VERY HIGH 0-19 Y 0 - 109 --- 110-129 >/= 130 ---- 20-24 Y 0 - 119 --- 120-159 >/= 160 ---- >24 Y 0 - 99 100-129 130-159 160-189 >/=190 . Performed By: #### L IPID #### [facility] [address] [place] [address] Cholesterol in VLDL [Mass/Vol] 20 mg/dL Normal 0 - 40 [facility] Comment on above: Performed By: #### L IPID #### [facility] [address] [place] [address] Cholesterol.total/Carmina sterol in HDL [Mass ratio] 4.8 {ratio} Normal [facility] Comment on above: Result Comment: REF VALUES DESIRABLE < 3.4 HIGH RISK > 5.0 Performed By: #### L IPID #### [facility] [address] [place] [address] Triglyceride [Mass/Vol] 100 mg/dL Normal 0 - 149 [facility] Comment on above: Result Comment: . AGE DESIRABLE BORDERLINE HIGH HIGH VERY HIGH 0 D-90 D 19 - 174 ---- ---- ---- 91 D- 9 Y 0 - 74 75 - 99 >/= 100 ---- 10-19 Y 0 - 89 90 - 129 >/= 130 ---- 20-24 Y 0 - 114 115 - 149 >/= 150 ---- >24 Y 0 - 149 150 - 199 200- 499 >/= 500 . Venipuncture immediately after or during the administration of Metamizole may lead to falsely low results. Testing should be performed immediately prior to Metamizole dosing. Performed By: #### L IPID #### [facility] [address] [place] [address] LITHIUMon 04-07-2023 Athalia [Moles/Vol] 0.93 mmol/L Normal 0.60 - 1.20 [facility] Comment on above: Performed By: #### L ITH #### [facility] [address] [place] [address] TSH WITH REFLEX TO FREE T4 I F ABNORMALon 04-07-2023 TSH Qn 2.68 m[IU]/L Normal 0.44 - 3.98 [facility] Comment on above: Result Comment: TSH testing is performed using different testing methodology at [facility] than at other [facility]. Direct result comparisons should only be made within the same method. Performed By: #### T HYDS #### [facility] [address] [place] [address] Laboratory - Chemistry and C hemistry - challengeon 04-06-2023 Albumin BCP dye [Mass/Vol] 4.3 g/dL 3.4 - 5.0 [facility] [address] [place] [address] Work Phone: ALP [Catalytic activity/Vol] 90 U/L 33 - 110 [facility] [address] [place] [address] Work Phone: ALT With P-5'-P [Catalytic activity/Vol] 8 U/L 7 - 45 [facility] [address] [place] [address] Work Phone: Comment on above: Patients treated wit h Sulfasalazine may generate falsely decreased results for ALT. Anion gap [Moles/Vol] 12 mmol/L 10 - 20 [facility] [address] [place] [address] Work Phone: AST With P-5'-P [Catalytic activity/Vol] 13 U/L 9 - 39 [facility] Work Phone: Bilirubin [Mass/Vol] 0.3 mg/dL 0.0 - 1.2 [facility] [address] [place] [address] Work Phone: Calcium [Mass/Vol] 10.3 mg/dL 8.6 - 10.6 [facility] Work Phone: Chloride [Moles/Vol] 107 mmol/L 98 - 107 [facility] Work Phone: CO2 [Moles/Vol] 24 mmol/L 21 - 32 [facility] Work Phone: [phone] Creatinine [Mass/Vol] 0.69 mg/dL See Below [facility] [address] [place] [address] Work Phone: [phone] Comment on above: Reference Range: 0.5 0 - 1.05 Glucose [Mass/Vol] 103 mg/dL above high threshold 74 - 99 [facility] [address] [place] [address] Work Phone: [phone] Potassium [Moles/Vol] 4.4 mmol/L 3.5 - 5.3 [facility] [address] [place] [address] Work Phone: [phone] Protein [Mass/Vol] 7.3 g/dL 6.4 - 8.2 [facility] [address] [place] [address] Work Phone: [phone] Sodium [Moles/Vol] 139 mmol/L 136 - 145 [facility] [address] [place] [address] Work Phone: [phone] TSH Qn 2.68 m[IU]/L See Below [facility] [address] [place] [address] Work Phone: [phone] Comment on above: Reference Range: 0.4 4 - 3.98 TSH testing is performed using different testing methodology at [facility] than at other [facility]. Direct result comparisons should only be made within the same method. Urea nitrogen [Mass/Vol] 5 mg/dL below low threshold 6 - 23 [facility] [address] [place] [address] Work Phone: [phone] Lipid Panelon 04-06-2023 Cholesterol [Mass/Vol] 177 mg/dL 0 - 199 [facility] [address] [place] [address] Work Phone: [phone] Comment on above: . AGE DESIRABLE BORD ELMO HIGH HIGH 0-19 Y 0 - 169 170 - 199 >/= 200 20-24 Y 0 - 189 190 - 224 >/= 225 >24 Y 0 - 199 200 - 239 >/= 240 All ranges are based on fasting samples. Specific therapeutic targets will vary based on patient-specific cardiac risk.. Pediatric guidelines reference:Pediatrics 2011, 128(S5). Adult guidelines reference: NCEP ATPIII Guidelines, CORINNE 2001, 258:2486-97. Venipuncture immediately after or during the administration of Metamizole may lead to falsely low results. Testing should be performed immediately prior to Metamizole dosing. Cholesterol in HDL [Mass/Vol] 37.2 mg/dL Abnormal [facility] Work Phone: Comment on above: . AGE VERY LOW LOW N ORMAL HIGH 0-19 Y < 35 < 40 40-45 ---- 20-24 Y ---- < 40 >45 ---- >24 Y ---- < 40 40-60 >60. Cholesterol in LDL [Mass/Vol] 120 mg/dL above high threshold 0 - 99 [facility] Work Phone: Comment on above: . NEAR BORD AGE DIPTI RABLE OPTIMAL HIGH HIGH VERY HIGH 0-19 Y 0 - 109 --- 110-129 >/= 130 ---- 20-24 Y 0 - 119 --- 120-159 >/= 160 ---- >24 Y 0 - 99 100-129 130-159 160-189 >/=190. Cholesterol.total/Carmina sterol in HDL [Mass ratio] 4.8 {ratio} [facility] Work Phone: Comment on above: REF VALUESDESIRABLE < 3.4HIGH RISK > 5.0 Triglyceride [Mass/Vol] 100 mg/dL 0 - 149 M [facility] Work Phone: Comment on above: . AGE DESIRABLE BORD ELMO HIGH HIGH VERY HIGH 0 D-90 D 19 - 174 ---- ---- ----91 D- 9 Y 0 - 74 75 - 99 >/= 100 ---- 10-19 Y 0 - 89 90 - 129 >/= 130 ---- 20-24 Y 0 - 114 115 - 149 >/= 150 ---- >24 Y 0 - 149 150 - 199 200- 499 >/= 500. Venipuncture immediately after or during the administration of Metamizole may lead to falsely low results. Testing should be performed immediately prior to Metamizole dosing. Lipid Panel 20 mg/dL 0 - [address] [facility] Work Phone: Athalia Level, Serumon 04-06 Athalia [Moles/Vol] 0.93 mmol/L See Below [facility] [address] [place] Work Phone: Comment on above: Reference Range: 0.6 0 - 1.20 No Panel Informationon 04-06 >90 >90 [facility] [address] [place] Work Phone: Comment on above: CALCULATIONS OF STEVO MATED GFR ARE PERFORMED USING THE 2020 CKD-EPI STUDY REFIT EQUATION WITHOUT THE RACE VARIABLE FOR THE IDMS-TRACEABLE CREATININE METHODS.https://jasn.asnjournals.org/content/early/ ASN.5071642846 OPIATE/OPIOID/BENZO EXTENDED PRESCRIPTION COMPLIANCEon 02-16-2023 6-ACETYLMORPHINE <25 Normal Cutoff <25 [facility] Comment on above: Performed By: #### D SBOP #### [facility] [address] [place] [address] 7-AMINOCLONAZEPAM 130 ng/mL Abnormal Cutoff <25 [facility] Comment on above: Result Comment: Clon azepam metabolite; consistent with use of a drug containing clonazepam, such as Klonopin. Performed By: #### D SBOP #### [facility] [address] [place] [address] ALPHA-HYDROXYALPRAZOLAM <25 Normal Cutoff <25 [facility] Comment on above: Performed By: #### D SBOP #### [facility] [address] [place] [address] ALPHA-HYDROXYMIDAZOLAM <25 Normal Cutoff <25 [facility] Comment on above: Performed By: #### D SBOP #### [facility] [address] [place] [address] ALPRAZOLAM <25 Normal Cutoff <25 [facility] Comment on above: Performed By: #### D SBOP #### [facility] [address] [place] [address] CHLORDIAZEPOXIDE <25 Normal Cutoff <25 [facility] Comment on above: Performed By: #### D SBOP #### [facility] [address] [place] [address] CLONAZEPAM <25 Normal Cutoff <25 [facility] Comment on above: Performed By: #### D SBOP #### [facility] [address] [place] [address] CODEINE <50 Normal Cutoff <50 [facility] Comment on above: Performed By: #### D SBOP #### [facility] [address] [place] [address] DIAZEPAM <25 Normal Cutoff <25 [facility] Comment on above: Performed By: #### D SBOP #### [facility] [address] [place] [address] EDDP,U <25 Normal Cutoff <25 [facility] Comment on above: Result Comment: The performance characteristics of the Methadone Confirmation, Urine has been validated by the individual laboratory site where testing is performed. It has not been cleared or approved by the FDA. However the FDA has determined that such clearance or approval is not necessary. Our Laboratory is certified under the Clinical Laboratory Improvement Amendments of 1988 (CLIA) as qualified to perform high complexity clinical laboratory testing. Performed By: #### D SBOP #### [facility] [address] [place] [address] FENTANYL CONFIRM,U <2.5 Normal Cutoff<2.5 [facility] Comment on above: Performed By: #### D SBOP #### [facility] [address] [place] [address] HYDROCODONE <25 Normal Cutoff <25 [facility] Comment on above: Performed By: #### D SBOP #### [facility] [address] [place] [address] HYDROMORPHONE <25 Normal Cutoff <25 [facility] Comment on above: Performed By: #### D SBOP #### [facility] [address] [place] [address] LORAZEPAM <25 Normal Cutoff <25 [facility] Comment on above: Performed By: #### D SBOP #### [facility] [address] [place] [address] METHADONE,U <25 Normal Cutoff <25 [facility] Comment on above: Performed By: #### D SBOP #### [facility] [address] [place] [address] MIDAZOLAM <25 Normal Cutoff <25 [facility] Comment on above: Performed By: #### D SBOP #### [facility] [address] [place] [address] MORPHINE <50 Normal Cutoff <50 [facility] Comment on above: Performed By: #### D SBOP #### [facility] [address] [place] [address] NORDIAZEPAM <25 Normal Cutoff <25 [facility] Comment on above: Performed By: #### D SBOP #### [facility] [address] [place] [address] NORFENTANYL CONFIRM,U <2.5 Normal Cutoff<2.5 [facility] Comment on above: Result Comment: The performance characteristics of the Fentanyl Confirmation, Urine has been validated by the individual laboratory site where testing is performed. It has not been cleared or approved by the FDA. However the FDA has determined that such clearance or approval is not necessary. Our Laboratory is certified under the Clinical Laboratory Improvement Amendments of 1988 (CLIA) as qualified to perform high complexity clinical laboratory testing. Performed By: #### D SBOP #### [facility] [address] [place] [address] NORHYDROCODONE <25 Normal Cutoff <25 [facility] Comment on above: Performed By: #### D SBOP #### [facility] [address] [place] [address] NOROXYCODONE <25 Normal Cutoff <25 [facility] Comment on above: Performed By: #### D SBOP #### [facility] [address] [place] [address] O-DESMETHYLTRAMADOL,U <50 Normal Cutoff <50 [facility] Comment on above: Result Comment: The performance characteristics of the Tramadol Confirmation, Urine has been validated by the individual laboratory site where testing is performed. It has not been cleared or approved by the FDA. However the FDA has determined that such clearance or approval is not necessary. Our Laboratory is certified under the Clinical Laboratory Improvement Amendments of 1988 (CLIA) as qualified to perform high complexity clinical laboratory testing. Performed By: #### D SBOP #### [facility] [address] [place] [address] OXAZEPAM <25 Normal Cutoff <25 [facility] Comment on above: Performed By: #### D SBOP #### [facility] [address] [place] [address] OXYCODONE <25 Normal Cutoff <25 [facility] Comment on above: Performed By: #### D SBOP #### [facility] [address] [place] [address] OXYMORPHONE <25 Normal Cutoff <25 [facility] Comment on above: Result Comment: The performance characteristics of the Opiate Confirmation, Urine has been validated by the individual laboratory site where testing is performed. It has not been cleared or approved by the FDA. However the FDA has determined that such clearance or approval is not necessary. Our Laboratory is certified under the Clinical Laboratory Improvement Amendments of 1988 (CLIA) as qualified to perform high complexity clinical laboratory testing. Performed By: #### D SBOP #### [facility] [address] [place] [address] TEMAZEPAM <25 Normal Cutoff <25 [facility] Comment on above: Result Comment: The performance characteristics of the Benzodiazepine Confirmation, Urine has been validated by the individual laboratory site where testing is performed. It has not been cleared or approved by the FDA. However the FDA has determined that such clearance or approval is not necessary. Our Laboratory is certified under the Clinical Laboratory Improvement Amendments of 1988 (CLIA) as qualified to perform high complexity clinical laboratory testing. Performed By: #### D SBOP #### [facility] [address] [place] [address] TRAMADOL CONFIRM,U <50 Normal Cutoff <50 [facility] Comment on above: Performed By: #### D SBOP #### [facility] [address] [place] [address] ZOLPIDEM METABOLITE[ZCA] ,U <25 Normal Cutoff <25 [facility] Comment on above: Result Comment: The performance characteristics of the Zolpidem Confirmation, Urine has been validated by the individual laboratory site where testing is performed. It has not been cleared or approved by the FDA. However the FDA has determined that such clearance or approval is not necessary. Our Laboratory is certified under the Clinical Laboratory Improvement Amendments of 1988 (CLIA) as qualified to perform high complexity clinical laboratory testing. Performed By: #### D SBOP #### [facility] [address] [place] [address] ZOLPIDEM,URINE <25 Normal Cutoff <25 [facility] Comment on above: Performed By: #### D SBOP #### [facility] [address] [place] [address] AMPHETAMINE CONFIRM,URINEon 02-13-2023 AMPHETAMINES 3567 ng/mL Normal [facility] Comment on above: Result Comment: Cons istent with use of a drug containing amphetamine. May also reflect metabolism of methamphetamine, when methamphetamine is present. Amphetamine and methamphetamine exist in d- and l-isomeric forms. These forms are not distinguished by this test. Isomeric separation is available separately for an additional charge. INTERPRETIVE INFORMATION: Amphetamines, Urine, Quantitative Methodology: Quantitative Liquid Chromatography-Tandem Mass Spectrometry Positive cutoff: 200 ng/mL unless specified below: Amphetamine 50 ng/mL For medical purposes only; not valid for forensic use. The absence of expected drug(s) and/or drug metabolite(s) may indicate non-compliance, inappropriate timing of specimen collection relative to drug administration, poor drug absorption, diluted/adulterated urine, or limitations of testing. The concentration value must be greater than or equal to the cutoff to be reported as positive. Interpretive questions should be directed to the laboratory. This test was developed and its performance characteristics determined by [employer]. It has not been cleared or approved by the US Food and Drug Administration. This test was performed in a CLIA certified laboratory and is intended for clinical purposes. Performed By: #### A MPC1 #### [facility] [address] [place] [address] MDA <200 [facility] Comment on above: Performed By: #### A MPC1 #### [facility] [address] [place] [address] MDEA <200 [facility] Comment on above: Performed By: #### A MPC1 #### [facility] [address] [place] [address] MDMA <200 [facility] Comment on above: Performed By: #### A MPC1 #### [facility] [address] [place] [address] METHAMPHETAMINE <200 Normal [facility] Comment on above: Performed By: #### A MPC1 #### [facility] [address] [place] [address] PHENTERMINE <200 [facility] Comment on above: Result Comment: Perf ormed By: Pending sale to [facility] [address] [place] [address] Stunt Man: Liam Chadwick MD, PhD Performed By: #### A MPC1 #### Pending sale to [facility] [address] [place] [address] OPIATE/OPIOID/BENZO EXTENDED PRESCRIPTION COMPLIANCEon 02-11-2023 AMPHETAMINE SCREEN,U Positive Abnormal NEGATIVE [facility] [place] Comment on above: Result Comment: CUTO FF LEVEL: 500 NG/ML Cross-reactivity has been reported with high concentrations of the following drugs: buproprion, chloroquine, chlorpromazine, ephedrine, mephentermine, fenfluramine, phentermine, phenylpropanolamine, pseudoephedrine, and propranolol. Performed By: #### D SBOP #### [facility] [address] [place] [address] BARBITURATES SCREEN,U Negative Normal NE[facility] Comment on above: Result Comment: CUTO FF LEVEL: 200 NG/ML Performed By: #### D SBOP #### [facility] [address] [place] [address] CANNABINOIDS SCREEN,U Negative Normal NEGATIVE [facility] Comment on above: Result Comment: CUTO FF LEVEL: 50 NG/ML Performed By: #### D SBOP #### [facility] [address] [place] [address] COCAINE METABOLITE SCREEN,U Negative Normal NEGATIVE [facility] Comment on above: Result Comment: CUTO FF LEVEL: 150 NG/ML Performed By: #### D SBOP #### [facility] [address] [place] [address] Creatinine [Mass/Vol] 26.1 mg/dL [facility] Comment on above: Result Comment: A ur ine creatinine result >= 20 mg/dL is considered valid without suspicion of dilution. Samples with results below this range will automatically reflex to specific gravity testing to verify specimen integrity. Performed By: #### D SBOP #### [facility] [address] [place] [id number] DRUG SCREEN COMMENT. SEE BELOW Normal [facility] [place] Comment on above: Result Comment: Drug screen results are presumptive and should not be used to assess compliance with prescribed medication. Definitive confirmatory drug testing has been added to this sample for any positive screen result and will be reported separately. . Toxicology screening results are reported qualitatively. The concentration must be greater than or equal to the cutoff to be reported as positive. The concentration at which the screening test can detect an individual drug or metabolite varies. The absence of expected drug(s) and/or drug metabolite(s) may indicate non-compliance, inappropriate timing of specimen collection relative to drug administration, poor drug absorption, diluted/adulterated urine, or limitations of testing. For medical purposes only; not valid for forensic use. . Interpretive questions should be directed to the laboratory medical directors. Performed By: #### D SBOP #### [facility] [address] [place] [id number] PCP SCREEN,U Negative Normal NEGATIVE [facility] Comment on above: Result Comment: CUTO FF LEVEL: 25 NG/ML Cross-reactivity has been reported with dextromethorphan. Performed By: #### D SBOP #### [facility] [address] [place] [address] Laboratory - Chemistry and C hemistry - challengeon 02-10-2023 Creatinine (Body fld) [Mass/Vol] 26.1 mg/dL [facility] Work Phone: Comment on above: A urine creatinine r esult >= 20 mg/dL is considered valid without suspicion of dilution. Samples with results below this range will automatically reflex to specific gravity testing to verify specimen integrity. Laboratory - Drug toxicology on 02-10-2023 1-Hydroxymidazolam Confirm (U) [Mass/Vol] <25 Cutoff <25 [facility] [place] Work Phone: 6-Cfrzkfkwjp-6,5-Dimeth yl-3,3-Diphenylpyrrolid ine (EDDP) Confirm (U) [Mass/Vol] <25 Cutoff <25 [facility] Work Phone: Comment on above: The performance ramin acteristics of the Methadone Confirmation, Urine has been validated by the individual laboratory site where testing is performed. It has not been cleared or approved by the FDA. However the FDA has determined that such clearance or approval is not necessary. Our Laboratory is certified under the Clinical Laboratory Improvement Amendments of 1988 (CLIA) as qualified to perform high complexity clinical laboratory testing. 6-Monoacetylmorphine (6-CLIF) Confirm (U) [Mass/Vol] <25 Cutoff <25 [facility] [address] Work Phone: [phone]-Aminoclonazepam Confirm (U) [Mass/Vol] 130 ng/mL Abnormal Cutoff <25 [facility] [address] Work Phone: Comment on above: Clonazepam metabolit e; consistent with use of a drug containing clonazepam, such as Klonopin. Alpha hydroxyalprazolam Confirm (U) [Mass/Vol] <25 Cutoff <25 [facility] [address] Work Phone: [phone] ALPRAZolam Confirm (U) [Mass/Vol] <25 Cutoff <25 [facility] [address] Work Phone: [phone] Amphetamine (U) [Mass/Vol] 3567 ng/mL [facility] Work Phone: Comment on above: Consistent with use of a drug containing amphetamine. May also reflect metabolism of methamphetamine, when methamphetamine is present. Amphetamine and methamphetamine exist in d- and l-isomeric forms. These forms are not distinguished by this test. Isomeric separation is available separately for an additional charge.INTERPRETIVE INFORMATION: Amphetamines, Urine, QuantitativeMethodology: Quantitative Liquid Chromatography-Tandem Mass SpectrometryPositive cutoff: 200 ng/mL unless specified below:Amphetamine 50 ng/mLFor medical purposes only; not valid for forensic use. The absence of expected drug(s) and/or drug metabolite(s) may indicate non-compliance, inappropriate timing of specimen collection relative to drug administration, poor drug absorption, diluted/adulterated urine, or limitations of testing. The concentration value must be greater than or equal to the cutoff to be reported as positive. Interpretive questions should be directed to the laboratory.This test was developed and its performance characteristics determined by [employer]. It has not been cleared or approved by the US Food and Drug Administration. This test was performed in a CLIA certified laboratory and is intended for clinical purposes. Amphetamines Screen Ql (U) Positive Abnormal NEGATIVE [facility] [address] [place] [address] Work Phone: [phone] Comment on above: CUTOFF LEVEL: 500 NG /ML Cross-reactivity has been reported with high concentrations of the following drugs: buproprion, chloroquine, chlorpromazine, ephedrine, mephentermine, fenfluramine, phentermine, phenylpropanolamine, pseudoephedrine, and propranolol. Barbiturates Screen Ql (U) Negative NEGATIVE [facility] [address] [place] [address] Work Phone: [phone] Comment on above: CUTOFF LEVEL: 200 NG /ML Benzoylecgonine Screen Ql (U) Negative NEGATIVE [facility] [address] [place] [address] Work Phone: [phone] Comment on above: CUTOFF LEVEL: 150 NG /ML Cannabinoids Screen Ql (U) Negative NEGATIVE [facility] [address] [place] [address] Work Phone: [phone] Comment on above: CUTOFF LEVEL: 50 NG/ ML chlordiazePOXIDE Confirm (U) [Mass/Vol] <25 Cutoff <25 [facility] [address] [place] [address] Work Phone: [phone] clonazePAM Confirm (U) [Mass/Vol] <25 Cutoff <25 [facility] [address] [place] [address] Work Phone: [phone] Codeine Confirm (U) [Mass/Vol] <50 Cutoff <50 [facility] [address] [place] [address] Work Phone: [phone] diazePAM Confirm (U) [Mass/Vol] <25 Cutoff <25 [facility] [address] [place] [address] Work Phone: [phone] fentaNYL Confirm (U) [Mass/Vol] <2.5 Cutoff<2.5 [facility] [address] [place] [address] Work Phone: [phone] HYDROcodone Confirm (U) [Mass/Vol] <25 Cutoff <25 [facility] [address] [place] [address] Work Phone: [phone] HYDROmorphone Confirm (U) [Mass/Vol] <25 Cutoff <25 [facility] Work Phone: [phone] LORazepam Confirm (U) [Mass/Vol] <25 Cutoff <25 [facility] [address] Work Phone: [phone] Methadone Confirm (U) [Mass/Vol] <25 Cutoff <25 [facility] [address] Work Phone: [phone] Methamphetamine (U) [Mass/Vol] ug/mL [facility] [address] Work Phone: [phone] Methylenedioxyamphetami ne (U) [Mass/Vol] <200 [facility] [address] Work Phone: Methylenedioxyethylamph etamine (U) [Mass/Vol] <200 [facility] [address] Work Phone: [phone] Methylenedioxymethamphe tamine (U) [Mass/Vol] <200 [facility] [address] Work Phone: [phone] Midazolam Confirm (U) [Mass/Vol] <25 Cutoff <25 [facility] [address] Work Phone: [phone] Morphine Confirm (U) [Mass/Vol] <50 Cutoff <50 [facility] [address] Work Phone: [phone] Nordiazepam Confirm (U) [Mass/Vol] <25 Cutoff <25 [facility] [address] [place] [address] Work Phone: [phone] Norfentanyl Confirm (U) [Mass/Vol] <2.5 Cutoff<2.5 [facility] [address] Work Phone: [phone] Comment on above: The performance ramin acteristics of the Fentanyl Confirmation, Urine has been validated by the individual laboratory site where testing is performed. It has not been cleared or approved by the FDA. However the FDA has determined that such clearance or approval is not necessary. Our Laboratory is certified under the Clinical Laboratory Improvement Amendments of 1988 (CLIA) as qualified to perform high complexity clinical laboratory testing. Norhydrocodone Confirm (U) [Mass/Vol] <25 Cutoff <25 [facility] [address] [place] [address] Work Phone: [phone] Noroxycodone Confirm (U) [Mass/Vol] <25 Cutoff <25 [facility] [address] [place] [address] Work Phone: [phone] Nortramadol (U) [Mass/Vol] <50 Cutoff <50 [facility] [address] [place] [address] Work Phone: [phone] Comment on above: The performance ramin acteristics of the Tramadol Confirmation, Urine has been validated by the individual laboratory site where testing is performed. It has not been cleared or approved by the FDA. However the FDA has determined that such clearance or approval is not necessary. Our Laboratory is certified under the Clinical Laboratory Improvement Amendments of 1988 (CLIA) as qualified to perform high complexity clinical laboratory testing. Oxazepam Confirm (U) [Mass/Vol] <25 Cutoff <25 [facility] [address] [place] [address] Work Phone: [phone] oxyCODONE Confirm (U) [Mass/Vol] <25 Cutoff <25 [facility] [address] [place] [address] Work Phone: [phone] oxyMORphone Confirm (U) [Mass/Vol] <25 Cutoff <25 [facility] [address] [place] [address] Work Phone: [phone] Comment on above: The performance ramin acteristics of the Opiate Confirmation, Urine has been validated by the individual laboratory site where testing is performed. It has not been cleared or approved by the FDA. However the FDA has determined that such clearance or approval is not necessary. Our Laboratory is certified under the Clinical Laboratory Improvement Amendments of 1988 (CLIA) as qualified to perform high complexity clinical laboratory testing. Phencyclidine Ql (U) Negative NEGATIVE [facility] Work Phone: Comment on above: CUTOFF LEVEL: 25 NG/ ML Cross-reactivity has been reported with dextromethorphan. Phentermine Confirm (U) [Mass/Vol] <200 [facility] [address] [place] [address] Work Phone: Comment on above: Performed By: [facility] [place] [id number] Director: Liam Chadwick MD, PhD Temazepam Confirm (U) [Mass/Vol] <25 Cutoff <25 [facility] [address] [place] [address] Work Phone: Comment on above: The performance ramin acteristics of the Benzodiazepine Confirmation, Urine has been validated by the individual laboratory site where testing is performed. It has not been cleared or approved by the FDA. However the FDA has determined that such clearance or approval is not necessary. Our Laboratory is certified under the Clinical Laboratory Improvement Amendments of 1988 (CLIA) as qualified to perform high complexity clinical laboratory testing. traMADol Confirm (U) [Mass/Vol] <50 Cutoff <50 [facility] [address] [place] [address] Work Phone: [phone] Zolpidem (U) [Mass/Vol] <25 Cutoff <25 M [facility] [address] [place] [address] Work Phone: No Panel Informationon 02-10 SEE BELOW [facility] [address] [place] [address] Work Phone: Comment on above: Drug screen results are presumptive and should not be used to assess compliance with prescribed medication. Definitive confirmatory drug testing has been added to this sample for any positive screen result and will be reported separately. .Toxicology screening results are reported qualitatively. The concentration must be greater than or equal to the cutoff to be reported as positive. The concentration at which the screening test can detect an individual drug or metabolite varies. The absence of expected drug(s) and/or drug metabolite(s) may indicate non-compliance, inappropriate timing of specimen collection relative to drug administration, poor drug absorption, diluted/adulterated urine, or limitations of testing. For medical purposes only; not valid for forensic use. .Interpretive questions should be directed to the laboratory medical directors. <25 Cutoff <25 [facility] [address] [place] [address] Work Phone: Comment on above: The performance ramin acteristics of the Zolpidem Confirmation, Urine has been validated by the individual laboratory site where testing is performed. It has not been cleared or approved by the FDA. However the FDA has determined that such clearance or approval is not necessary. Our Laboratory is certified under the Clinical Laboratory Improvement Amendments of 1988 (CLIA) as qualified to perform high complexity clinical laboratory testing. Psychiatry Adulton 3 Psychiatry Adult Diagnoses/Problems Assessed Bipolar 1 disorder (296.7) (F31.9) Medication management (V58.69) (Z79.899) Insomnia, unspecified type (780.52) (G47.00) ADHD (attention deficit hyperactivity disorder), predominantly hyperactive impulsive type (314.01) (F90.1) Generalized anxiety disorder with panic attacks (300.02,300.01) (F41.1,F41.0) Orders ADHD (attention deficit hyperactivity disorder), predominantly hyperactive impulsive type Renew: Amphetamine-Dextroamphe t ER 20 MG Oral Capsule Extended Release 24 Hour; TAKE 2 CAPSULES DAILY Bipolar 1 disorder Start: Topiramate 25 MG Oral Tablet; TAKE 1 tablet at bedtime for 2 weeks, then take 2 tablets at bedtime for 2 weeks, then take 3 tablets at bedtime Renew: ARIPiprazole 15 MG Oral Tablet; TAKE 0.5 TABLET Daily Renew: Athalia Carbonate ER 300 MG Oral Tablet Extended Release; TAKE 2 TABLET Twice daily Generalized anxiety disorder with panic attacks Renew: clonazePAM 1 MG Oral Tablet; TAKE ONE TABLET BY MOUTH EVERY DAY NEEDED FOR ANXIETY Insomnia, unspecified type Renew: QUEtiapine Fumarate 100 MG Oral Tablet; TAKE 1 TABLET Bedtime PRN insomnia Medication management Amphetamine Confirm, Urine; Status:Active; Requested for:29Jan2023; OPIATE/OPIOID/BENZO [EXTENDED] PRESCRIPTION COMPLIANCE; Status:Active; Requested for:[id number]; Provider Impressions A 32yo nonbinary individual domiciled w/ family, on disability w/ bipolar d/o, complex PTSD, DIONE and cluster B traits presents for follow up. Patient is moderate acute and moderate chronic risk of suicide. Static risk factors include , gender dysphoria. Dynamic risk factors include above psychiatric symptoms which we are addressing with medication. Protective factors include no drug abuse, rational thinking intact, good social support, help seeking, no SI today, hopeful, future oriented and no guns at home or access to meds. Bipolar d/o - c/w lithium ER 600mg BID, c/w lamotrigine 100mg BID, quetiapine 100mg qhs, restart topiramate 25mg daily and titrate to 75mg daily PTSD/panic - c/w clonazepam 1mg daily PRN panic,c/w med ed, psycho ed, supportive psychotherapy, f/u 4 weeks ADHD - adderall XR 20mg BID Insomnia - quetiapine Pt was educated that if they feel a danger to themselves or others to go to the nearest emergency room or call [phone]. Chief Complaint An interactive audio and video telecommunication system which permits real time communications between the patient (at the originating site) and provider (at the distant site) was utilized to provide this telehealth service. Bipolar d/o History of Present Illness Pt presented on time. Mood "ok" since last session. He rates his depression 3/10 in severity lately. Denies SI. Denies NSSI in the last 2 weeks. Anxiety has been higher. He's been feeling paranoid that someone is going to come into his room and hurt him. He has a therapist who specializes in transgender care. They'll be meeting twice a month. He takes the clonazepam before anxiety provoking situations. I have personally reviewed the [place]ARRS report for LILY QUIROZ. I have considered the risks of abuse, dependence, addiction and diversion. I have the following concerns: none. Is the patient prescribed a combination of a benzodiazepine and opioid? No. Last urine drug screening date/ordered today: 01/29/2023 Controlled Substance Agreement: I have printed this form and reviewed each line item with the patient and the patient has verbalized understanding. Date of the last Controlled Substance Agreement: 01/29/2023 BENZODIAZEPINES What is the patient?s goal of therapy? anxiety tx. Is this being achieved with current treatment? yes. Activities of Daily Living: Yes, it is my opinion that this patient is benefitting from benzodiazepine therapy. Physical functioning: Same Family relationships: Same Social relationships: Same Mood: Same Sleep patterns: Same Overall functioning: Same STIMULANTS What is the patient?s goal of therapy? adhd tx. Is this being achieved with current treatment? yes. Activities of Daily Living: Yes, it is my opinion that this patient is benefitting from stimulant therapy . Physical functioning: Same Family relationships: Same Social relationships: Same Mood: Same Sleep patterns: Same Overall functioning: Same Review of Systems Depressive Symptoms: not depressed or irritable, no loss of interest, not feeling worthless or guilty, no suicidal ideation, no guns or weapons in household. Manic Symptoms: mood is not irritable or elevated, self esteem is not grandiose or increased, no changes in need for sleep. Psychotic Symptoms: no hallucinations, no delusions. Anxiety Symptoms: excessive worry, specific phobia, but no panic attacks, no difficulty controlling worry, no increase in arousal, no sleep disturbances due to worry. Disordered Eating Symptoms: intense fear of gaining weight, poor body image, but weight is not less than 85% of id (more content not included)... [facility] Psychiatry Adulton 3 Psychiatry Adult Diagnoses/Problems Assessed Bipolar 1 disorder (296.7) (F31.9) ADHD (attention deficit hyperactivity disorder), predominantly hyperactive impulsive type (314.01) (F90.1) Complex posttraumatic stress disorder (309.81) (F43.10) Generalized anxiety disorder with panic attacks (300.02,300.01) (F41.1,F41.0) Orders ADHD (attention deficit hyperactivity disorder), predominantly hyperactive impulsive type Continue: Amphetamine-Dextroamphe t ER 20 MG Oral Capsule Extended Release 24 Hour; TAKE 2 CAPSULES DAILY Bipolar 1 disorder Renew: ARIPiprazole 15 MG Oral Tablet; TAKE 0.5 TABLET Daily Renew: Athalia Carbonate ER 300 MG Oral Tablet Extended Release; TAKE 2 TABLET Twice daily Continue: lamoTRIgine 100 MG Oral Tablet; take 1 tablet by mouth twice a day Generalized anxiety disorder with panic attacks Continue: clonazePAM 1 MG Oral Tablet; TAKE ONE TABLET BY MOUTH EVERY DAY NEEDED FOR ANXIETY Health Maintenance, Metabolic syndrome Continue: metFORMIN HCl - 500 MG Oral Tablet; TAKE 1 TABLET BY MOUTH TWICE DAILY WITH A MEAL Unlinked Continue: QUEtiapine Fumarate 100 MG Oral Tablet Generalized anxiety disorder with panic attacks (300.02) (F41.1) Bipolar 1 disorder (296.7) (F31.9) ADHD (attention deficit hyperactivity disorder), predominantly hyperactive impulsive type (314.01) (F90.1) Patient Discussion/Summary -Continue Adderall ER 40 mg PO daily -Continue clonazepam 1 mg PO QHS. -Continue lamotrigine 100 mg PO BID. -Continue lithium 600 mg PO BID (last level 09/03/2022 was 0.96) -Continue quetiapine 100 mg PO QHS -Continue aripiprazole 7.5 mg PO daily. -Follow-up with Dr. Mccallum for med management- he will call to schedule. -IOP team is assisting with referrals for new individual therapist. -Aware that I am available to assist with medications until he's able to see Dr. Mccallum for follow-up. Provider Impressions 32 y/o transgender M, with a history of bipolar 1 disorder, ADHD, CPTSD and DIONE. Notes benefit with switch from Adderall IR to ER 40 mg PO daily. No indication for dose changes today. Unlikely that recent increase in intrusive thoughts about someone breaking into the home to harm him and his family reflect increased paranoia as a side effect of stimulant, but worth continued assessment. There was no dose increase, and overall dose has been decreased within the past month. Reviewed OARRS, no discrepancies or concerns. Discussed risk of insomnia, anxiety, agitation, anorexia, autonomic effects, toxicity, psychosis, dependence, tolerance, abuse. Otherwise tolerating current regimen with fair benefit. Persistent depressive symptoms apparent, but there has been overall improvement since recent hospitalization. No suicidal thinking, but experiencing intrusive thoughts about harming himself with no plan or intent. Engaged in self-harm (cutting) yesterday. He is able to participate in safety planning, as noted in previous assessments- would drive himself to the ED or ask his brother to drive him. He will complete the IOP program this week and resume outpatient medication management with Dr. Mccallum. In the process of identifying a new individual therapist with assistance from the IOP team. Acute risk for suicide is moderate based on: Transgender individual Diagnosis of depression/current depressive symptoms Acute stressors- recent anniversary of 's suicide History of suicide attempt or self-harm Recent hospitalization and recent self-harm Impulsivity Marital status Limited family/social support Protective Factors Age No current suicidality/plan/intent No substance use No access to firearms Engagement in treatment Provided with crisis/emergency resources, including the [facility] Crisis Line at , Crisis Text Line (text 6RCCL to 087243) and the National Suicide Prevention Lifeline hotline . Agrees to call 988 or go to the nearest emergency department if he feels unsafe, or has suicidal thinking with a plan or intent. Chief Complaint An interactive audio and video telecommunication system which permits real time communications between the patient (at the originating site) and provider (at the distant site) was utilized to provide this telehealth service. Verbal consent was requested and obtained from LILY QUIROZ on this date, 01/13/2023 02:30 PM , for a telehealth visit. IOP History of Present Illness Arcadio is a 32 y/o transgender male (he/they) seen in follow-up for bipolar 1 disorder, ADHD, CPTSD and DIONE. Since his last appointment, he tells me the last 2 days have been rough. "A lot of negative self talk." Stemmed from a comment he made during group that he felt bad about. Can't recall exactly what he said or what was being discussed at the time, just thought to himself, "that was stupid," and negative thoughts spiraled from there. Today in group didn't participate as much as usual because he was still thinking about it. Prio (more content not included)... [facility] Adulton 3 Psychiatry Adult Diagnoses/Problems Assessed ADHD (attention deficit hyperactivity disorder), predominantly hyperactive impulsive type (314.01) (F90.1) Bipolar 1 disorder (296.7) (F31.9) Complex posttraumatic stress disorder (309.81) (F43.10) Generalized anxiety disorder with panic attacks (300.02,300.01) (F41.1,F41.0) Orders ADHD (attention deficit hyperactivity disorder), predominantly hyperactive impulsive type Stop: Amphetamine-Dextroamphe t ER 20 MG Oral Capsule Extended Release 24 Hour Start: Amphetamine-Dextroamphe t ER 20 MG Oral Capsule Extended Release 24 Hour; TAKE 2 CAPSULES DAILY Bipolar 1 disorder Continue: ARIPiprazole 15 MG Oral Tablet; TAKE 0.5 TABLET Daily Continue: lamoTRIgine 100 MG Oral Tablet; take 1 tablet by mouth twice a day Continue: Athalia Carbonate ER 300 MG Oral Tablet Extended Release; TAKE 2 TABLET Twice daily Generalized anxiety disorder with panic attacks Continue: clonazePAM 1 MG Oral Tablet; TAKE ONE TABLET BY MOUTH EVERY DAY NEEDED FOR ANXIETY Health Maintenance, Metabolic syndrome Continue: metFORMIN HCl - 500 MG Oral Tablet; TAKE 1 TABLET BY MOUTH TWICE DAILY WITH A MEAL Unlinked Continue: QUEtiapine Fumarate 100 MG Oral Tablet Generalized anxiety disorder with panic attacks (300.02) (F41.1) Bipolar 1 disorder (296.7) (F31.9) ADHD (attention deficit hyperactivity disorder), predominantly hyperactive impulsive type (314.01) (F90.1) Patient Discussion/Summary -Change Adderall to ER 40 mg PO daily (if insurance will cover) -Continue clonazepam 1 mg PO QHS. -Continue lamotrigine 100 mg PO BID. -Continue lithium 600 mg PO BID (last level 09/03/2022 was 0.96) -Continue quetiapine 100 mg PO QHS -Continue aripiprazole 7.5 mg PO daily. -Continue engagement in IOP. -Follow-up in 1 week. Provider Impressions 32 y/o transgender M, with a history of bipolar 1 disorder, ADHD, CPTSD and DIONE. Tolerating current regimen with fair benefit. Depressive symptoms are still improved from prior to recent hospitalization but more apparent today than at last week's visit. Some recent suicidal thinking with plan to purchase a firearm, but denies intent and is able to identify a safety plan (would either ask his brother to take him to the ED or drive himself if he didn't feel able to remain safe at home). Reasonable to switch from Adderall IR to ER if insurance now covers, in an effort to prolong daytime benefit from medication. Discussed indication(s), reviewed risks/benefits/alternat tish. Reviewed [place]AR[place], no discrepancies or concerns. Discussed risk of insomnia, anxiety, agitation, anorexia, autonomic effects, toxicity, psychosis, dependence, tolerance, abuse. Will otherwise continue current regimen. Acute risk for suicide is moderate based on: Transgender individual Diagnosis of depression/current depressive symptoms Acute stressors- recent anniversary of 's suicide History of suicide attempt or self-harm Recent hospitalization Impulsivity Marital status Limited family/social support Protective Factors Age No current suicidality/plan/intent No substance use No access to firearms Engagement in treatment Provided with crisis/emergency resources, including the [facility] Crisis Line at , Crisis Text Line (text 2QGEN to 226559) and the National Suicide Prevention Lifeline hotline . Agrees to call 988 or go to the nearest emergency department if he feels unsafe, or has suicidal thinking with a plan or intent. Chief Complaint An interactive audio and video telecommunication system which permits real time communications between the patient (at the originating site) and provider (at the distant site) was utilized to provide this telehealth service. Verbal consent was requested and obtained from LILY GABRIELLA on this date, 01/06/2023 02:30 PM , for a telehealth visit. IOP History of Present Illness Arcadio is a 32 y/o transgender male (he/they) seen in follow-up for bipolar 1 disorder, ADHD, CPTSD and DIONE. Since his last appointment, he tells me things are about the same. "Not too much new going on." Groups are going well, but had to miss part of today to take mom to the doctor. Doing ok with medications. Sleep has remained consistent, and ever since I got a new bed it's been a lot better." Still some, "ups and downs," every few days in his mood. Usually in the later part of the day." Still hasn't been able to do much artwork. Sits at his desk, but can't bring himself to get started. About 2 weeks ago did a drawing, "it wasn't to my typical standard, but it was something." No changes in appetite or energy level. Still feeling a significant decrease in motivation and focus since reduction of Adderall dose. Wonders whether he could switch to ER because IR helps for such a short amount of time. In the past insurance didn?t cover, but that was a few years ago. No recent self-harm or thoughts to self-harm. "A little bit," of suicidal th (more content not included)... [facility] Adulton 3 Psychiatry Adult Diagnoses/Problems Assessed Bipolar 1 disorder (296.7) (F31.9) Complex posttraumatic stress disorder (309.81) (F43.10) Generalized anxiety disorder with panic attacks (300.02,300.01) (F41.1,F41.0) ADHD (attention deficit hyperactivity disorder), predominantly hyperactive impulsive type (314.01) (F90.1) Orders ADHD (attention deficit hyperactivity disorder), predominantly hyperactive impulsive type Continue: Amphetamine-Dextroamphe tamine 20 MG Oral Tablet; Take 1 tablet twice daily Bipolar 1 disorder Continue: ARIPiprazole 15 MG Oral Tablet; TAKE 0.5 TABLET Daily Continue: lamoTRIgine 100 MG Oral Tablet; take 1 tablet by mouth twice a day Continue: Athalia Carbonate ER 300 MG Oral Tablet Extended Release; TAKE 2 TABLET Twice daily Generalized anxiety disorder with panic attacks Continue: clonazePAM 1 MG Oral Tablet; TAKE ONE TABLET BY MOUTH EVERY DAY NEEDED FOR ANXIETY Unlinked Continue: QUEtiapine Fumarate 100 MG Oral Tablet Generalized anxiety disorder with panic attacks (300.02) (F41.1) Bipolar 1 disorder (296.7) (F31.9) ADHD (attention deficit hyperactivity disorder), predominantly hyperactive impulsive type (314.01) (F90.1) Patient Discussion/Summary -Continue Adderall IR 20 mg PO BID. -Continue clonazepam 1 mg PO QHS. -Continue lamotrigine 100 mg PO BID. -Continue lithium 600 mg PO BID (last level 09/03/2022 was 0.96) -Continue quetiapine 100 mg PO QHS -Continue aripiprazole 7.5 mg PO daily. -Continue engagement in IOP. -Follow-up in 1 week. Provider Impressions 32 y/o transgender M, with a history of bipolar 1 disorder, ADHD, CPTSD and DIONE. Overall, tolerating medication changes made during and immediately after recent hospitalization, with some modest benefit emerging for depressive symptoms. Sleep has normalized, and he has noted a significant change in motivation and ability to initiate tasks since decrease in Adderall dose 1 week ago (decreased d/t insomnia at the time). Discussed that if he continues to sleep well through the night, it would be reasonable to resume previously beneficial dose of Adderall. Will re-assess in 1 week. No reoccurrence of UE tremor that occurred on the day of discharge from the hospital. Acute risk for suicide is moderate to high based on: Transgender individual Diagnosis of depression/current depressive symptoms Acute stressors- recent anniversary of 's suicide History of suicide attempt or self-harm Recent hospitalization Impulsivity Marital status Limited family/social support Protective Factors Age No current suicidality/plan/intent No substance use No access to firearms Engagement in treatment Provided with crisis/emergency resources, including the [facility] Crisis Line at , Crisis Text Line (text 5VLOG ho 026890) and the National Suicide Prevention Lifeline hotline . Agrees to call 988 or go to the nearest emergency department if he feels unsafe, or has suicidal thinking with a plan or intent. Chief Complaint An interactive audio and video telecommunication system which permits real time communications between the patient (at the originating site) and provider (at the distant site) was utilized to provide this telehealth service. Verbal consent was requested and obtained from LILY QUIROZ on this date, 12/30/2022 02:30 PM , for a telehealth visit. IOP History of Present Illness Arcadio is a 32 y/o transgender male (he/they) seen in follow-up for bipolar 1 disorder, ADHD, CPTSD and DIONE. Since his last appointment, he tells me, "not too much," has been going on. Groups are going well. Earlier this week he had to miss a day for an intake appointment for a new therapist. The therapist who conducted the intake was not someone he'd consider a good fit to meet with regularly, but he was able to contact the agency and they can place him with someone else. "They just said it might take a week or two." Mood, "kind of varies from like nothing, to depressed." When it's more depressed he has negative thoughts, like 'I hate you,' 'you should ,'" but when his mood is "like nothing," his mind if, just kind of blank. When it's blank, it's not really a bad thing, it's fine, but just unfamiliar," because his thoughts have been mostly negative for so long. Sleep has been fine. Following recent hospitalization, insomnia lasted about 3 days, but has been better since. He also got a new bed, "which helped a lot because before it would hurt to sleep, but now that's not an issue." Tends to go to bed early because he gets, "bored and depressed," at night. Usually goes to sleep around 8 or 9, and wakes up in time for group in the morning. Energy level has still been low, motivation is low- maybe lower than before he was in the hospital. No suicidal thoughts, but passive wish, "like I wanna , I don't wanna be alive. Nothing past that." No thoughts to self-harm, and no engagement in self-harm since osiel (more content not included)... [facility] Adulton 3 Psychiatry Adult Diagnoses/Problems Assessed ADHD (attention deficit hyperactivity disorder), predominantly hyperactive impulsive type (314.01) (F90.1) Bipolar 1 disorder (296.7) (F31.9) Complex posttraumatic stress disorder (309.81) (F43.10) Generalized anxiety disorder with panic attacks (300.02,300.01) (F41.1,F41.0) *Orders ADHD (attention deficit hyperactivity disorder), predominantly hyperactive impulsive type Continue: Amphetamine-Dextroamphe tamine 20 MG Oral Tablet; Take 1 tablet twice daily Bipolar 1 disorder Continue: ARIPiprazole 15 MG Oral Tablet; TAKE 0.5 TABLET Daily Continue: lamoTRIgine 100 MG Oral Tablet; take 1 tablet by mouth twice a day Continue: Athalia Carbonate ER 300 MG Oral Tablet Extended Release; TAKE 2 TABLET Twice daily Generalized anxiety disorder with panic attacks Continue: clonazePAM 1 MG Oral Tablet; TAKE ONE TABLET BY MOUTH EVERY DAY NEEDED FOR ANXIETY Unlinked Continue: QUEtiapine Fumarate 100 MG Oral Tablet Generalized anxiety disorder with panic attacks (300.02) (F41.1) Bipolar 1 disorder (296.7) (F31.9) ADHD (attention deficit hyperactivity disorder), predominantly hyperactive impulsive type (314.01) (F90.1) Patient Discussion/Summary -Continue Adderall IR 20 mg PO BID- decreased by Dr. Mccallum earlier today. -Discontinued citalopram during hospitalization. -Decreased clonazepam to 1 mg PO QHS during hospitalization. -Continue lamotrigine 100 mg PO BID. -Continue lithium 600 mg PO BID (last level 09/03/2022 was 0.96) -Decreased quetiapine to 100 mg PO QHS during hospitalization. -Continue aripiprazole 7.5 mg PO daily- started during hospitalization last week. -Continue engagement in IOP. -Follow-up in 1 week. Provider Impressions 32 y/o transgender M, with a history of bipolar 1 disorder, ADHD, CPTSD and DIONE. Recently hospitalized at [facility] for suicidal ideation. I have reviewed the hospital discharge summary, and medication changes. Since leaving the hospital, overall symptoms have improved, but reporting insomnia x [address] Mccallum earlier today, and Adderall was decreased from 20 mg TID--> BID. Otherwise, discharge regimen was continued. I will not make any additional changes to medication today. Also mentioned a fleeting UE tremor that was more significant than he experiences from lithium. Started the morning he left the hospital and resolved as the day progressed, and has not returned. Will continue to assess. Acute risk for suicide is moderate to high based on: Transgender individual Diagnosis of depression/current depressive symptoms Acute stressors- recent anniversary of 's suicide History of suicide attempt or self-harm Recent hospitalization Impulsivity Marital status Limited family/social support Protective Factors Age No current suicidality/plan/intent No substance use No access to firearms Engagement in treatment Provided with crisis/emergency resources, including the [facility] Crisis Line at , Crisis Text Line (text 0RLNO to 102910) and the National Suicide Prevention Lifeline hotline . Agrees to call 988 or go to the nearest emergency department if he feels unsafe, or has suicidal thinking with a plan or intent. Chief Complaint An interactive audio and video telecommunication system which permits real time communications between the patient (at the originating site) and provider (at the distant site) was utilized to provide this telehealth service. Verbal consent was requested and obtained from LILY QUIROZ on this date, 12/23/2022 01:30 PM , for a telehealth visit. IOP History of Present Illness Arcadio is a 32 y/o transgender male (he/they) seen in follow-up for bipolar 1 disorder, ADHD, CPTSD and DIONE. Since his last appointment, he was hospitalized at [facility] for 1 week. I reviewed the discharge summary, and it has been scanned into the medical record. Hospital was, "kind of a difficult environment." A lot of patients struggling with severe psychotic disorders and aggressive behaviors while he was there. Still his depression got better. "Usually when I go in the hospital the depression kind of goes away just cause you're kind of closed off from the world." Depressive symptoms returning "a little bit," today but not as bad. Just noticing some negative thoughts, negative self-talk. Denies suicidal thinking. No thoughts to self-harm, and has not engaged in self-harm since leaving the hospital. Medication changes: -Decreased quetiapine dose from 400--> 100 mg PO QHS -Started aripiprazole 7.5 mg PO daily -Discontinued citalopram. -Decreased clonazepam to once daily- he has been taking at bedtime. He also saw Dr. Mccallum earlier today, and Adderall was decreased from TID--> BID. Reports he hasn?t been sleeping at all for the past 2 nights. His energy level is a little bit low, but not as much as he would expect considering the lack of sleep. In the past (more content not included)... [facility] Adult Diagnoses/Problems Assessed ADHD (attention deficit hyperactivity disorder), predominantly hyperactive impulsive type (314.01) (F90.1) Bipolar 1 disorder (296.7) (F31.9) Complex posttraumatic stress disorder (309.81) (F43.10) Generalized anxiety disorder with panic attacks (300.02,300.01) (F41.1,F41.0) *Orders Amphetamine-Dextroamphe tamine 20 MG Oral Tablet; Take 1 tablet twice daily; Therapy: 19Mar2020 to (Evaluate:04Feb2023) Requested for: [id number]; Last Rx:[id number]; Status: ACTIVE Ordered Rx By: Adriana Mccallum; Dispense: 30 Days ; #:60 Tablet; Refill: 0; For: ADHD (attention deficit hyperactivity disorder), predominantly hyperactive impulsive type; KENYATTA = N; Verified Transmission to [id number]; Msg to Pharmacy: Fill on or after 01/05/23; Last Updated By: [employer] Gaby; 12/23/2022 1:55:32 PM Provider Impressions A 32yo nonbinary individual domiciled w/ family, on disability w/ bipolar d/o, complex PTSD, DIONE and cluster B traits presents for follow up. Pt just out of hospital recently and hospital staff scheduled appt w/ technical document writer as well as IOP provider. Will obtain drug screen when pt returns to [facility] care. Patient is moderate acute and moderate chronic risk of suicide. Static risk factors include , gender dysphoria. Dynamic risk factors include above psychiatric symptoms which we are addressing with medication. Protective factors include no drug abuse, rational thinking intact, good social support, help seeking, no SI today, hopeful, future oriented and no guns at home or access to meds. Bipolar d/o - c/w lithium ER 600mg BID, c/w lamotrigine 100mg BID, quetiapine 100mg qhs, topiramate 25mg daily PTSD/panic - c/w clonazepam 1mg daily PRN panic,c/w med ed, psycho ed, supportive psychotherapy, f/u 4 weeks ADHD - adderall 20mg BID, reviewed OARRS Insomnia - quetiapine Pt was educated that if they feel a danger to themselves or others to go to the nearest emergency room or call [phone]. Chief Complaint An interactive audio and video telecommunication system which permits real time communications between the patient (at the originating site) and provider (at the distant site) was utilized to provide this telehealth service. Bipolar d/o History of Present Illness Pt presented on time. He was feeling more suicidal so he went to [facility] (see outside records). He stayed for about a week. His medicines were changing a lot. He feels "much better" now but the depression is coming back a little. He's sleeping less and spending more. He took a clonazepam last night and didn't sleep. Suggested reducing adderall to BID. I have personally reviewed the OARRS report for LILY QUIROZ. I have considered the risks of abuse, dependence, addiction and diversion. I have the following concerns: none. Is the patient prescribed a combination of a benzodiazepine and opioid? No. Last urine drug screening date/ordered today: 12/21/2019 *Active Problems Problems ADHD (attention deficit hyperactivity disorder), predominantly hyperactive impulsive type (314.01) (F90.1) Complex posttraumatic stress disorder (309.81) (F43.10) Encounter for long-term (current) use of medications (V58.69) (Z79.899) Generalized anxiety disorder with panic attacks (300.02,300.01) (F41.1,F41.0) Metabolic syndrome (277.7) (E88.81) Mood disorder (296.90) (F39) Self-injurious behavior (V69.8) (Z72.89) Bipolar 1 disorder (296.7) (F31.9) Past Medical History Problems History of atrial fibrillation (V12.59) (Z86.79) Family History Mother Family history of Anxiety Family history of depression (V17.0) (Z81.8) Brother Family history of Anxiety Social History Problems Never smoker No alcohol use Self-injurious behavior (V69.8) (Z72.89) Allergies Medication methylphenidate Adverse Reaction; Psychosis; Recorded By: Adriana Mccallum; 02/25/2022 3:34:53 PM Current Meds Medication NameInstruction Amphetamine-Dextroamphe tamine 20 MG Oral TabletTAKE 1 TABLET 3 times daily Azelastine HCl - 0.1 % Nasal Solution Citalopram Hydrobromide 10 MG Oral TabletTAKE 1 TABLET BY MOUTH EVERY DAY clonazePAM 1 MG Oral TabletTake 1 tablet twice daily Fluticasone Propionate 50 MCG/ACT Nasal Suspension lamoTRIgine 100 MG Oral Tablettake 1 tablet by mouth twice a day Athalia Carbonate 600 MG Oral CapsuleTAKE 1 CAPSULE BY MOUTH TWICE A DAY Loratadine 10 MG Oral TabletTAKE 1 TABLET BY MOUTH EVERY DAY FOR ALLERGIES metFORMIN HCl - 500 MG Oral TabletTAKE 1 TABLET BY MOUTH TWICE DAILY WITH A MEAL Metoprolol Succinate ER 50 MG Oral Tablet Extended Release 24 Hour Mometasone Furoate 0.1 % External Cream Pantoprazole Sodium 40 MG Oral Tablet Delayed Release QUEtiapine Fumarate 400 MG Oral TabletTAKE 1 TABLET AT BEDTIME. Zyrtec 10 MG TABS Mental Status Exam General: Appropriately groomed and dressed Appearance: Appears stated age Attitude: Calm, cooperative Behavior: Appropriate eye contact. Speech: Reg (more content not included)... [facility] Adulton 3 Psychiatry Adult Diagnoses/Problems Assessed ADHD (attention deficit hyperactivity disorder), predominantly hyperactive impulsive type (314.01) (F90.1) Bipolar 1 disorder (296.7) (F31.9) Complex posttraumatic stress disorder (309.81) (F43.10) Generalized anxiety disorder with panic attacks (300.02,300.01) (F41.1,F41.0) Orders ADHD (attention deficit hyperactivity disorder), predominantly hyperactive impulsive type Renew: Amphetamine-Dextroamphe tamine 20 MG Oral Tablet; TAKE 1 TABLET 3 times daily Bipolar 1 disorder Continue: lamoTRIgine 100 MG Oral Tablet; take 1 tablet by mouth twice a day Continue: Athalia Carbonate 600 MG Oral Capsule; TAKE 1 CAPSULE BY MOUTH TWICE A DAY Continue: QUEtiapine Fumarate 400 MG Oral Tablet; TAKE 1 TABLET AT BEDTIME Generalized anxiety disorder with panic attacks Renew: clonazePAM 1 MG Oral Tablet; Take 1 tablet twice daily Continue: Citalopram Hydrobromide 10 MG Oral Tablet; TAKE 1 TABLET BY MOUTH EVERY DAY Patient Discussion/Summary -Continue Adderall IR 20 mg PO TID. -Continue citalopram 10 mg PO daily. -Continue clonazepam 1 mg PO BID. -Continue lamotrigine 100 mg PO BID. -Continue lithium 600 mg PO BID (last level 09/03/2022 was 0.96) -Continue quetiapine 400 mg PO QHS. -Continue engagement in IOP. -Follow-up in 1 week. Provider Impressions 32 y/o transgender M, with a history of bipolar 1 disorder, ADHD, CPTSD and DIONE. For now, will continue current medication regimen, Very recently completed cross-titration of cariprazine in favor of quetiapine, but has concerns about metabolic side effects from quetiapine. May need to consider alternative, but he has trialed an extensive list of psychotropics, and options remaining are fairly limited. Continue lithium 600 mg PO BID for mood. Reviewed indications, risks, benefits, alternatives. Discussed toxicity, drug-drug interactions, serum monitoring, GI, renal and endocrine side effects. TSH in June 2022 WNL, CMP in April 2022 showed BUN 4 (L) and Glu 105 (H) but otherwise WNL. Athalia level 09/03/2022 was 0.96. Continue lamotrigine 100 mg PO BID for mood- could consider further titration to target depressive symptoms. Advised of potentially fatal rash (i.e. Hansen-Ahmet Syndrome) in 1:10,000 individuals. Agrees to stop medication and seek medical attention immediately if rash or blistering of the mucosal surfaces develops; also discussed risk for benign drug-induced rash, and advised to cease medication and seek immediate medical attention to r/o SJS given its potential lethality. Further advised that the risk for this reaction increases if proper dose titration is not followed, and that after 2 days of non-adherence, re-titration is necessary. Continue citalopram 10 mg PO daily for depressive and anxious symptoms. Continue clonazepam 1 mg PO BID for anxiety. Reviewed OARRS, no discrepancies or concerns. Discussed risk of motor/cognitive impairment, sedation, dependence, tolerance, abuse, withdrawal sequelae, accidental overdose, life-threatening respiratory depression (especially in combination with alcohol and/or opioids), excess sedation in combination with other sedating medicines. Continue Adderall IR 20 mg PO TID for ADHD. Reviewed OARRS, no discrepancies or concerns. Discussed risk of insomnia, anxiety, agitation, anorexia, autonomic effects, toxicity, psychosis, dependence, tolerance, abuse. Acute risk for suicide is moderate to high based on: Transgender individual Diagnosis of depression/current depressive symptoms Acute stressors- recent anniversary of 's suicide History of suicide attempt or self-harm Plan for method of suicide- no access to means, no intent Impulsivity Marital status Hopelessness Limited family/social support Protective Factors Age No substance use No access to firearms Engagement in treatment I have been in ongoing collaboration with the [facility] team to discuss risk and safety planning for Arcadio. At this point, outpatient level of care remains appropriate, and we will continue efforts to maintain the least restrictive level of care based on serial assessments. However, the threshold for recommending inpatient hospitalization is necessarily low, and any evidence of increased acute risk for suicide would warrant hospitalization. Provided with crisis/emergency resources, including the [facility] Crisis Line at , Crisis Text Line (text 7LLRM to 214772) and the National Suicide Prevention Lifeline hotline . Agrees to call 988 or go to the nearest emergency department if he feels unsafe, or has suicidal thinking with a plan or intent. Chief Complaint An interactive audio and video telecommunication system which permits real time communications between the patient (at the originating site) and provider (at the distant site) was utilized to provide this telehealth service. Verbal consent was requested and obtained from LILY QUIROZ on this date, 12/14/2022 02:30 PM , (more content not included)... [facility] Adulton 3 Psychiatry Adult Diagnoses/Problems Assessed Bipolar 1 disorder (296.7) (F31.9) ADHD (attention deficit hyperactivity disorder), predominantly hyperactive impulsive type (314.01) (F90.1) Complex posttraumatic stress disorder (309.81) (F43.10) Generalized anxiety disorder with panic attacks (300.02,300.01) (F41.1,F41.0) Orders ADHD (attention deficit hyperactivity disorder), predominantly hyperactive impulsive type Continue: Amphetamine-Dextroamphe tamine 20 MG Oral Tablet; TAKE 1 TABLET 3 times daily Bipolar 1 disorder Continue: lamoTRIgine 100 MG Oral Tablet; take 1 tablet by mouth twice a day Continue: Athalia Carbonate 600 MG Oral Capsule; TAKE 1 CAPSULE BY MOUTH TWICE A DAY Continue: QUEtiapine Fumarate 400 MG Oral Tablet; TAKE 1 TABLET AT BEDTIME Generalized anxiety disorder with panic attacks Continue: Citalopram Hydrobromide 10 MG Oral Tablet; TAKE 1 TABLET BY MOUTH EVERY DAY Continue: clonazePAM 1 MG Oral Tablet; Take 1 tablet twice daily Patient Discussion/Summary -Continue Adderall IR 20 mg PO TID. -Continue citalopram 10 mg PO daily. -Continue clonazepam 1 mg PO BID. -Continue lamotrigine 100 mg PO BID. -Continue lithium 600 mg PO BID (last level 09/03/2022 was 0.96) -Continue quetiapine 400 mg PO QHS. -Continue engagement in IOP. -Follow-up in 1 week. Provider Impressions 32 y/o transgender M, with a history of bipolar 1 disorder, ADHD, CPTSD and DIONE. Tolerated titration of quetiapine to 400 mg PO QHS and discontinuation of cariprazine per outpatient provider. No significant changes in mood symptoms yet. No indication for further medication changes today. Continue lithium 600 mg PO BID for mood. Reviewed indications, risks, benefits, alternatives. Discussed toxicity, drug-drug interactions, serum monitoring, GI, renal and endocrine side effects. TSH in June 2022 WNL, CMP in April 2022 showed BUN 4 (L) and Glu 105 (H) but otherwise WNL. Athalia level 09/03/2022 was 0.96. Continue lamotrigine 100 mg PO BID for mood. Advised of potentially fatal rash (i.e. Hansen-Ahmet Syndrome) in 1:10,000 individuals. Agrees to stop medication and seek medical attention immediately if rash or blistering of the mucosal surfaces develops; also discussed risk for benign drug-induced rash, and advised to cease medication and seek immediate medical attention to r/o SJS given its potential lethality. Further advised that the risk for this reaction increases if proper dose titration is not followed, and that after 2 days of non-adherence, re-titration is necessary. Continue citalopram 10 mg PO daily for depressive and anxious symptoms. Continue clonazepam 1 mg PO BID for anxiety. Reviewed OARRS, no discrepancies or concerns. Discussed risk of motor/cognitive impairment, sedation, dependence, tolerance, abuse, withdrawal sequelae, accidental overdose, life-threatening respiratory depression (especially in combination with alcohol and/or opioids), excess sedation in combination with other sedating medicines. Continue Adderall IR 20 mg PO TID for ADHD. Reviewed OARRS, no discrepancies or concerns. Discussed risk of insomnia, anxiety, agitation, anorexia, autonomic effects, toxicity, psychosis, dependence, tolerance, abuse. Acute risk for suicide is moderate to high based on: Transgender individual Diagnosis of depression/current depressive symptoms Acute stressors- recent anniversary of 's suicide History of suicide attempt or self-harm Plan for method of suicide- no access to means, no intent Impulsivity Marital status Hopelessness Limited family/social support Protective Factors Age No substance use No access to firearms Engagement in treatment Provided with crisis/emergency resources, including the [facility] Crisis Line at , Crisis Text Line (text 9BAIJ to 639300) and the National Suicide Prevention Lifeline hotline . Agrees to call 988 or go to the nearest emergency department if he feels unsafe, or has suicidal thinking with a plan or intent. Chief Complaint An interactive audio and video telecommunication system which permits real time communications between the patient (at the originating site) and provider (at the distant site) was utilized to provide this telehealth service. Verbal consent was requested and obtained from LILY QUIROZ on this date, 12/07/2022 02:30 PM , for a telehealth visit. IOP History of Present Illness Arcadio is a 32 y/o transgender male (he/they) seen in follow-up for bipolar 1 disorder, ADHD, CPTSD and DIONE. Since his last appointment, reports that he has been, really depressed. Having more suicidal thoughts, more "depression pain," and self-harming. A lot of agitation. Finding it difficult to get out of bed and do things. Suicidal thoughts are sometimes passive, just my brain saying you should kill yourself," to researching overdose amounts. Considered overdosing on quetiapine, but read that it isn't very lethal, so then considered lisa (more content not included)... [facility] Adulton 3 Psychiatry Adult Diagnoses/Problems Assessed Bipolar 1 disorder (296.7) (F31.9) ADHD (attention deficit hyperactivity disorder), predominantly hyperactive impulsive type (314.01) (F90.1) Generalized anxiety disorder with panic attacks (300.02,300.01) (F41.1,F41.0) Orders Bipolar 1 disorder Renew: QUEtiapine Fumarate 400 MG Oral Tablet; TAKE 1 TABLET AT BEDTIME Provider Impressions A 32yo nonbinary individual domiciled w/ family, on disability w/ bipolar d/o, complex PTSD, DIONE and cluster B traits presents for follow up. Depressed mood continues since last session likely 2/2 to reduction in treatment level (stopping therapy) as well as being in more contact with 's family around holidays. Pt participated in safety planning. Discussed completing cross-titration and for pt to continue on with IOP prescriber for duration of treatment in IOP. Patient is moderate acute and moderate chronic risk of suicide. Static risk factors include , gender dysphoria. Dynamic risk factors include above psychiatric symptoms which we are addressing with medication. Protective factors include no drug abuse, rational thinking intact, good social support, help seeking, no SI today, hopeful, future oriented and no guns at home or access to meds. Suggested that the decrease in therapy these past months has likely resulted in a backslide in mental health coupled with the timing of an upcoming anniversary of their 's suicide several years ago which historically is a challenging time for pt. Recommended continuing IOP with plan to transition to new therapist after completion. Will follow up on completion of IOP. Bipolar d/o - c/w lithium to 600mg BID, c/w lamotrigine 100mg BID, d/c vraylar 1.5mg daily, titrate to quetiapine 400mg qhs, topiramate 25mg daily PTSD/panic - c/w clonazepam 1mg BID PRN panic, citalopram 10mg daily, c/w med ed, psycho ed, supportive psychotherapy, f/u 4 weeks ADHD - adderall 20mg TID, reviewed OARRS Insomnia - quetiapine Pt was educated that if they feel a danger to themselves or others to go to the nearest emergency room or call [phone]. Chief Complaint An interactive audio and video telecommunication system which permits real time communications between the patient (at the originating site) and provider (at the distant site) was utilized to provide this telehealth service. Bipolar d/o History of Present Illness Pt presented on time. Checking in given sx reported 2 weeks ago. He started the IOP last week. He was able to taper the vraylar and increase the quetiapine. He feels "quite depressed". The SI is "a lot now" and vary in intensity from thinking he should to thinking how he might do it. Denies obtaining a firearm or seeking how to get one. Discussed setting threshold for going to ED or calling 911. He feels that if he made a plan and had intent, then he would go to the ED. Pt participated in safety planning. He listed art and tv as ways to distracted himself. He might reach out to his online friends, brother or mom to serve as a distraction. She would reach out to her brother if she was in crisis and needed help. Pt has historically reached out for help when in crisis. Review of Systems Depressive Symptoms: depressed /irritable mood, diminished interest, fatigue, feeling worthlessness / guilt, suicidal ideation, but no guns or weapons in household. Manic Symptoms: mood is not irritable or elevated, self esteem is not grandiose or increased, no changes in need for sleep. Psychotic Symptoms: no hallucinations, no delusions. Anxiety Symptoms: excessive worry, specific phobia, but no panic attacks, no difficulty controlling worry, no increase in arousal, no sleep disturbances due to worry. Disordered Eating Symptoms: intense fear of gaining weight, poor body image, but weight is not less than 85% of ideal body weight, no amenorrhea, no restricting of diet and/or excessive exercise, no purging or laxative use. Post-traumatic stress disorder symptoms The patient is currently experiencing symptoms, emotional numbing, feeling detached, disinterest in life, hopelessness, but no flashbacks, no intrusive thoughts, no avoiding triggers, no relationship problems, no fearfulness, no startles easily, no irritability, no agitation, no inability to concentrate, no hypervigilance, no sleep disturbance, no nightmares. Inattentive Symptoms: is often disorganized, but does not have difficulty paying attention, is not easily distracted, does not avoid/dislike tasks with sustained mental effort. Other Symptoms/ Concerns: gender identity symptoms. Active Problems Problems ADHD (attention deficit hyperactivity disorder), predominantly hyperactive impulsive type (314.01) (F90.1) Bipolar 1 disorder (296.7) (F31.9) Complex posttraumatic stress disorder (309.81) (F43.10) Encounter for long-term (current) use of medications (V58.69) (Z79.899) Generalized anxiety disorder (300.02) (F41.1) Generalized anxiety disorder with panic att (more content not included)... [facility] Adult[facility] 3 Psychiatry Adult No report was sent [facility] Adulton 3 Psychiatry Adult Diagnoses/Problems Assessed Complex posttraumatic stress disorder (309.81) (F43.10) Generalized anxiety disorder (300.02) (F41.1) Bipolar 1 disorder (296.7) (F31.9) ADHD (attention deficit hyperactivity disorder), predominantly hyperactive impulsive type (314.01) (F90.1) Orders ADHD (attention deficit hyperactivity disorder), predominantly hyperactive impulsive type Continue: Amphetamine-Dextroamphe tamine 20 MG Oral Tablet; TAKE 1 TABLET 3 times daily Bipolar 1 disorder Continue: lamoTRIgine 100 MG Oral Tablet; take 1 tablet by mouth twice a day Continue: Athalia Carbonate 600 MG Oral Capsule; TAKE 1 CAPSULE BY MOUTH TWICE A DAY Continue: QUEtiapine Fumarate 300 MG Oral Tablet; TAKE 1 TABLET AT BEDTIME Continue: Vraylar 1.5 MG Oral Capsule; TAKE 1 CAPSULE Daily Generalized anxiety disorder with panic attacks Continue: Citalopram Hydrobromide 10 MG Oral Tablet; TAKE 1 TABLET BY MOUTH EVERY DAY Continue: clonazePAM 1 MG Oral Tablet; Take 1 tablet twice daily Patient Discussion/Summary -Continue Adderall IR 20 mg PO TID. -Continue citalopram 10 mg PO daily. -Continue clonazepam 1 mg PO BID. -Continue lamotrigine 100 mg PO BID. -Continue lithium 600 mg PO BID (last level 09/03/2022 was 0.96) -Continue quetiapine 300 mg PO QHS. -Continue cariprazine 1.5 mg PO daily. -Admit to IOP. -Follow-up in 1 week. Provider Impressions 32 y/o transgender M, with a history of bipolar 1 disorder, ADHD, CPTSD and DIONE. Has trialed an extensive list of medications with either little benefit or side effects. Current regimen is complicated, but he reports is generally beneficial. Outpatient psychiatrist, Dr. Mccallum, is in the process of cross-titrating cariprazine in favor of quetiapine for mood, and quetiapine has been very beneficial for sleep as well. Will continue medications as prescribed- he has follow-up with Dr. Mccallum next week. Continue lithium 600 mg PO BID for mood. Reviewed indications, risks, benefits, alternatives. Discussed toxicity, drug-drug interactions, serum monitoring, GI, renal and endocrine side effects. TSH in June 2022 WNL, CMP in April 2022 showed BUN 4 (L) and Glu 105 (H) but otherwise WNL. Athalia level 09/03/2022 was 0.96. Continue lamotrigine 100 mg PO BID for mood. Advised of potentially fatal rash (i.e. Hansen-Ahmet Syndrome) in 1:10,000 individuals. Agrees to stop medication and seek medical attention immediately if rash or blistering of the mucosal surfaces develops; also discussed risk for benign drug-induced rash, and advised to cease medication and seek immediate medical attention to r/o SJS given its potential lethality. Further advised that the risk for this reaction increases if proper dose titration is not followed, and that after 2 days of non-adherence, re-titration is necessary. Continue citalopram 10 mg PO daily for depressive and anxious symptoms. Continue clonazepam 1 mg PO BID for anxiety. Reviewed OARRS, no discrepancies or concerns. Discussed risk of motor/cognitive impairment, sedation, dependence, tolerance, abuse, withdrawal sequelae, accidental overdose, life-threatening respiratory depression (especially in combination with alcohol and/or opioids), excess sedation in combination with other sedating medicines. Continue Adderall IR 20 mg PO TID for ADHD. Reviewed OARRS, no discrepancies or concerns. Discussed risk of insomnia, anxiety, agitation, anorexia, autonomic effects, toxicity, psychosis, dependence, tolerance, abuse. Acute risk for suicide is moderate to high based on: Male/female sex Age Diagnosis of depression/current depressive symptoms Acute stressors- anniversary of 's suicide History of suicide attempt or self-harm Plan for method of suicide- no access to means, no intent Impulsivity Marital status Hopelessness Limited family/social support Protective Factors Age No substance use No access to firearms Engagement in treatment Provided with crisis/emergency resources, including the [facility] Crisis Line at , Crisis Text Line (text 6SXMC to 822578) and the National Suicide Prevention Lifeline hotline . Agrees to call 988 or go to the nearest emergency department if he feels unsafe, or has suicidal thinking with a plan or intent. Chief Complaint An interactive audio and video telecommunication system which permits real time communications between the patient (at the originating site) and provider (at the distant site) was utilized to provide this telehealth service. Verbal consent was requested and obtained from LILY QUIROZ on this date, 11/23/2022 03:00 PM , for a telehealth visit. IOP History of Present Illness Arcadio is a 32 y/o transgender male (he/they)with a history of bipolar 1 disorder, ADHD, CPTSD and DIONE, seen as a new patient to me today for IOP admission/med management. He sees Dr. Mccallum as an outpatient, and I have reviewed the medical record, including the most recent vi (more content not included)... [facility] Adulton 3 Psychiatry Adult Diagnoses/Problems Assessed Bipolar 1 disorder (296.7) (F31.9) ADHD (attention deficit hyperactivity disorder), predominantly hyperactive impulsive type (314.01) (F90.1) Complex posttraumatic stress disorder (309.81) (F43.10) Generalized anxiety disorder (300.02) (F41.1) Orders ADHD (attention deficit hyperactivity disorder), predominantly hyperactive impulsive type Renew: Amphetamine-Dextroamphe tamine 20 MG Oral Tablet; TAKE 1 TABLET 3 times daily Bipolar 1 disorder Renew: QUEtiapine Fumarate 300 MG Oral Tablet; TAKE 1 TABLET AT BEDTIME Renew: Vraylar 1.5 MG Oral Capsule; TAKE 1 CAPSULE Daily Provider Impressions A 32yo nonbinary individual domiciled w/ family, on disability w/ bipolar d/o, complex PTSD, DIONE and cluster B traits presents for follow up. Depressed mood has increased over the last week likely 2/2 to reduction in treatment level (stopping therapy) as well as being in more contact with 's family around holidays. They've demonstrated some increased SI and made a plan last week but did not carry it out. Pt demonstrated some future oriented thinking including making request for refills after session ended and lunch plans with their inlaws. They were able to identify protective factors including family and pet cat. Denies SI today. Patient is moderate acute and moderate chronic risk of suicide. Static risk factors include , gender dysphoria. Dynamic risk factors include above psychiatric symptoms which we are addressing with medication. Protective factors include no drug abuse, rational thinking intact, good social support, help seeking, no SI today, hopeful, future oriented and no guns at home or access to meds. Suggested that the decrease in therapy these past months has likely resulted in a backslide in mental health coupled with the timing of an upcoming anniversary of their 's suicide several years ago which historically is a challenging time for pt. Recommended starting IOP with plan to transition to new therapist after completion. Will follow up in 2 weeks to ensure plan is in motion and continue to assess safety. Plan to slowly cross-titrate vraylar to quetiapine. Bipolar d/o - c/w lithium to 600mg BID, c/w lamotrigine 100mg BID, taper to vraylar 1.5mg daily, titrate to quetiapine 300mg qhs, topiramate 25mg daily, referred to IOP PTSD/panic - c/w clonazepam 1mg BID PRN panic, citalopram 10mg daily, c/w med ed, psycho ed, supportive psychotherapy, f/u 4 weeks ADHD - adderall 20mg TID, reviewed OARRS Insomnia - quetiapine Pt was educated that if they feel a danger to themselves or others to go to the nearest emergency room or call [phone]. Chief Complaint An interactive audio and video telecommunication system which permits real time communications between the patient (at the originating site) and provider (at the distant site) was utilized to provide this telehealth service. Bipolar d/o History of Present Illness Pt presented on time. They were able to increase the quetiapine. They're feeling an increase in depressive episodes. They occur more days than not but only for part of the day. The frequency and intensity have increased. They've noticed an increase in SI frequency and intensity. Higher doses of vraylar caused "fogginess". They self harmed 4 times on thigh by cutting. Last was 3 days ago. None required more than blotting to stop the bleeding. A week ago they had thoughts of getting a gun and looked at where they could get one. They didn't go forward with it because they lacked motivation to get up and carry it out. Denies firearms in home. They did think about their family and cat and how they would be sad. Discussed trial of quetiapine at a higher dose more likely to help with mood. Will plan a very slow cross-titration. Discussed past trauma of 's passing which tends to come up around this time of year. They haven't been in as much contact with their inlaws this year and now will be meeting up with them after sending [employer] messages. Next month they have an intake to start with a new therapist. Recommended going to [facility] until they can start therapy again. Review of Systems Depressive Symptoms: depressed /irritable mood, diminished interest, fatigue, feeling worthlessness / guilt, suicidal ideation, but no guns or weapons in household. Manic Symptoms: mood is not irritable or elevated, self esteem is not grandiose or increased, no changes in need for sleep. Psychotic Symptoms: no hallucinations, no delusions. Anxiety Symptoms: excessive worry, specific phobia, but no panic attacks, no difficulty controlling worry, no increase in arousal, no sleep disturbances due to worry. Disordered Eating Symptoms: intense fear of gaining weight, poor body image, but weight is not less than 85% of ideal body weight, no amenorrhea, no restricting of diet and/or excessive exercise, no purging or laxative use. Post-traumatic stress disorder symptoms The patient is currently experiencing (more content not included)... [facility] Adulton 2 Psychiatry Adult Diagnoses/Problems Assessed Bipolar 1 disorder (296.7) (F31.9) ADHD (attention deficit hyperactivity disorder), predominantly hyperactive impulsive type (314.01) (F90.1) Generalized anxiety disorder with panic attacks (300.02,300.01) (F41.1,F41.0) Orders ADHD (attention deficit hyperactivity disorder), predominantly hyperactive impulsive type Renew: Amphetamine-Dextroamphe tamine 20 MG Oral Tablet; TAKE 1 TABLET 3 times daily Bipolar 1 disorder Start: QUEtiapine Fumarate 50 MG Oral Tablet; TAKE 1 TABLET AT BEDTIME WITH QUETIAPINE 200MG Renew: lamoTRIgine 100 MG Oral Tablet; take 1 tablet by mouth twice a day Renew: Athalia Carbonate 600 MG Oral Capsule; TAKE 1 CAPSULE BY MOUTH TWICE A DAY Renew: QUEtiapine Fumarate 200 MG Oral Tablet; TAKE 1 TABLET BY MOUTH EVERYDAY AT BEDTIME Renew: Vraylar 3 MG Oral Capsule; TAKE 1 CAPSULE Daily Generalized anxiety disorder with panic attacks Renew: Citalopram Hydrobromide 10 MG Oral Tablet; TAKE 1 TABLET BY MOUTH EVERY DAY Provider Impressions A 32yo nonbinary individual domiciled w/ family, on disability w/ bipolar d/o, complex PTSD, DIONE and cluster B traits presents for follow up. Depressed mood has increased over the last week. Discussed as possibly due to titrated citalopram. Discussed titrating quetiapine first to ensure additional treatment is in place and then tapering citalopram back to 10mg. Discussed possibly tapering vraylar in future. Pt expressed future oriented thinking and identified protective factors. Reviewed OARRS, labs, multidisciplinary notes. Discussed lab w/ pt. Patient is moderate acute and moderate chronic risk of suicide. Static risk factors include , gender dysphoria. Dynamic risk factors include above psychiatric symptoms which we are addressing with medication. Protective factors include no drug abuse, rational thinking intact, good social support, help seeking, no active SI, hopeful, future oriented and no guns at home. Bipolar d/o - c/w lithium to 600mg BID, c/w lamotrigine 100mg BID, vraylar 3mg daily, titrate to quetiapine 250mg qhs, topiramate 25mg daily PTSD/panic - c/w clonazepam 1mg BID PRN panic, taper to citalopram 10mg daily, c/w med ed, psycho ed, supportive psychotherapy, f/u 4 weeks ADHD - adderall 20mg TID Insomnia - quetiapine Pt was educated that if they feel a danger to themselves or others to go to the nearest emergency room or call [phone]. Chief Complaint An interactive audio and video telecommunication system which permits real time communications between the patient (at the originating site) and provider (at the distant site) was utilized to provide this telehealth service. Bipolar d/o History of Present Illness Pt presented on time. Mood "more depressed" since last session. Her mom's health is "not good" but this isn't a big change that might explain the mood change. Anxiety is "ok sometimes". It gets worse at night. They have an appointment with a new therapist starting next month at [facility]. Their family has been there before. They self harmed thoughts after having a lot of intrusive thoughts. They cut their leg. The cuts were superficial and did not require medical attention. They had some SI yesterday. They thought about ways one might but denies setting a plan or having intent to carry anything out. Her brother still manages the medicines. Denies access to other lethal means. Her mother is important to her. Discussed timing of worsening mood with titration of citalopram. Discussed titrating quetiapine and tapering citalopram. Active Problems Problems ADHD (attention deficit hyperactivity disorder), predominantly hyperactive impulsive type (314.01) (F90.1) Bipolar 1 disorder (296.7) (F31.9) Complex posttraumatic stress disorder (309.81) (F43.10) Encounter for long-term (current) use of medications (V58.69) (Z79.899) Generalized anxiety disorder (300.02) (F41.1) Generalized anxiety disorder with panic attacks (300.02,300.01) (F41.1,F41.0) Metabolic syndrome (277.7) (E88.81) Mood disorder (296.90) (F39) Panic attacks (300.01) (F41.0) Self-injurious behavior (V69.8) (Z72.89) Past Medical History Problems History of atrial fibrillation (V12.59) (Z86.79) Family History Mother Family history of Anxiety Family history of depression (V17.0) (Z81.8) Brother Family history of Anxiety Social History Problems Never smoker No alcohol use Self-injurious behavior (V69.8) (Z72.89) Allergies Medication methylphenidate Adverse Reaction; Psychosis; Recorded By: Adriana Mccallum; 02/25/2022 3:34:53 PM Current Meds Medication NameInstruction Amphetamine-Dextroamphe tamine 20 MG Oral TabletTAKE 1 TABLET 3 times daily Azelastine HCl - 0.1 % Nasal Solution Citalopram Hydrobromide 20 MG Oral TabletTAKE 1 TABLET BY MOUTH EVERY DAY clonazePAM 1 MG Oral TabletTake 1 tablet twice daily Fluticasone Propionate 50 MCG/ACT Nasal Suspension lamoTRIgine 100 MG Oral (more content not included)... Normal [facility] LITHIUMon 09-25-2022 Athalia [Moles/Vol] 0.96 mmol/L Normal 0.60 - 1.20 [facility] Comment on above: Performed By: #### L ITH #### [facility] [address] [place] [address] Athalia Level, Serumon 09-24 Athalia [Moles/Vol] 0.96 mmol/L See Below MG-P amy [place] Work Phone: Comment on above: Reference Range: 0.6 0 - 1.20 Psychiatry Adulton 2 Psychiatry Adult Diagnoses/Problems Assessed Bipolar 1 disorder (296.7) (F31.9) ADHD (attention deficit hyperactivity disorder), predominantly hyperactive impulsive type (314.01) (F90.1) Complex posttraumatic stress disorder (309.81) (F43.10) Generalized anxiety disorder with panic attacks (300.02,300.01) (F41.1,F41.0) Orders ADHD (attention deficit hyperactivity disorder), predominantly hyperactive impulsive type Renew: Amphetamine-Dextroamphe tamine 20 MG Oral Tablet; TAKE 1 TABLET 3 times daily Generalized anxiety disorder with panic attacks Renew: clonazePAM 1 MG Oral Tablet; Take 1 tablet twice daily Athalia Level, Serum; Status:Active; Requested for:03Sep2022; Provider Impressions A 32yo nonbinary individual domiciled w/ family, on disability w/ bipolar d/o, complex PTSD, DIONE and cluster B traits presents for follow up. Anhedonia has improved. They are having more anxiety lately. Discussed titrating citalopram. Patient is moderate acute and moderate chronic risk of suicide. Static risk factors include , gender dysphoria. Dynamic risk factors include above psychiatric symptoms which we are addressing with medication. Protective factors include no drug abuse, rational thinking intact, good social support, help seeking, no active SI, hopeful, future oriented and no guns at home. Bipolar d/o - c/w lithium to 600mg qAM and 900mg qHS (Li lvl 1.05 10/28/21), c/w lamotrigine 100mg BID, vraylar 3mg daily, topiramate 25mg daily PTSD/panic - c/w clonazepam 1mg BID PRN panic, citalopram 20mg daily, c/w med ed, psycho ed, supportive psychotherapy, f/u 4 weeks ADHD - adderall 20mg TID Insomnia - quetiapine 200mg qhs Pt was educated that if they feel a danger to themselves or others to go to the nearest emergency room or call 911. Chief Complaint An interactive audio and video telecommunication system which permits real time communications between the patient (at the originating site) and provider (at the distant site) was utilized to provide this telehealth service. Bipolar d/o History of Present Illness Pt presented on time. They were able to titrate the citalopram. Mood "ok" since last session. Anxiety has been "a bit better". Motivation for art is "a bit better". They've done a few drawings. They had "a couple" bouts of depressed mood w/ NSSI by cutting leg. The cuts were superficial and did not require medical attention. Denies SI. Sleeping ok. Discussed checking lithium level again. The tremors are about the same. Review of Systems Depressive Symptoms: not depressed or irritable, no loss of interest, no insomnia, no fatigue or loss of energy, not feeling worthless or guilty, normal concentration, no suicidal ideation, no guns or weapons in household. Manic Symptoms: mood is not irritable or elevated, self esteem is not grandiose or increased, no changes in need for sleep. Psychotic Symptoms: no hallucinations, no delusions. Anxiety Symptoms: excessive worry, specific phobia, but no panic attacks, no difficulty controlling worry, no increase in arousal, no sleep disturbances due to worry. Disordered Eating Symptoms: intense fear of gaining weight, poor body image, but weight is not less than 85% of ideal body weight, no amenorrhea, no restricting of diet and/or excessive exercise, no purging or laxative use. Post-traumatic stress disorder symptoms The patient is currently experiencing symptoms, emotional numbing, feeling detached, disinterest in life, hopelessness, but no flashbacks, no intrusive thoughts, no avoiding triggers, no relationship problems, no fearfulness, no startles easily, no irritability, no agitation, no inability to concentrate, no hypervigilance, no sleep disturbance, no nightmares. Inattentive Symptoms: is often disorganized, but does not have difficulty paying attention, is not easily distracted, does not avoid/dislike tasks with sustained mental effort. Other Symptoms/ Concerns: gender identity symptoms. Active Problems Problems ADHD (attention deficit hyperactivity disorder), predominantly hyperactive impulsive type (314.01) (F90.1) Bipolar 1 disorder (296.7) (F31.9) Complex posttraumatic stress disorder (309.81) (F43.10) Encounter for long-term (current) use of medications (V58.69) (Z79.899) Generalized anxiety disorder (300.02) (F41.1) Generalized anxiety disorder with panic attacks (300.02,300.01) (F41.1,F41.0) Metabolic syndrome (277.7) (E88.81) Mood disorder (296.90) (F39) Panic attacks (300.01) (F41.0) Self-injurious behavior (V69.8) (Z72.89) Past Medical History Problems History of atrial fibrillation (V12.59) (Z86.79) Family History Mother Family history of Anxiety Family history of depression (V17.0) (Z81.8) Brother Family history of Anxiety Social History Problems Never smoker No alcohol use Self-injurious behavior (V69.8) (Z72.89) Allergies Medication methylphenidate Adverse Reaction; Psychosis; Recorded By: Adriana Mccallum; 02/25/2022 3:34:53 PM (more content not included)... Normal [facility] Psychiatry Adulton 2 Psychiatry Adult Diagnoses/Problems Assessed Bipolar 1 disorder (296.7) (F31.9) Generalized anxiety disorder with panic attacks (300.02,300.01) (F41.1,F41.0) Orders ADHD (attention deficit hyperactivity disorder), predominantly hyperactive impulsive type Renew: Amphetamine-Dextroamphe tamine 20 MG Oral Tablet; TAKE 1 TABLET 3 times daily Generalized anxiety disorder with panic attacks Renew: Citalopram Hydrobromide 20 MG Oral Tablet; TAKE 1 TABLET DAILY Provider Impressions A 32yo nonbinary individual domiciled w/ family, on disability w/ bipolar d/o, complex PTSD, DIONE and cluster B traits presents for follow up. Anhedonia has improved. They are having more anxiety lately. Discussed titrating citalopram. Patient is moderate acute and moderate chronic risk of suicide. Static risk factors include , gender dysphoria. Dynamic risk factors include above psychiatric symptoms which we are addressing with medication. Protective factors include no drug abuse, rational thinking intact, good social support, help seeking, no active SI, hopeful, future oriented and no guns at home. Bipolar d/o - c/w lithium to 600mg qAM and 900mg qHS (Li lvl 1.05 10/28/21), restart NAC 600mg BID, c/w lamotrigine 100mg BID, vraylar 3mg daily, topiramate 25mg daily PTSD/panic - c/w clonazepam 1mg BID PRN panic, titrate to citalopram 20mg daily, c/w med ed, psycho ed, supportive psychotherapy, f/u 4 weeks ADHD - adderall 20mg TID Insomnia - quetiapine 200mg qhs Pt was educated that if they feel a danger to themselves or others to go to the nearest emergency room or call 911. Chief Complaint An interactive audio and video telecommunication system which permits real time communications between the patient (at the originating site) and provider (at the distant site) was utilized to provide this telehealth service. Bipolar d/o History of Present Illness Pt presented on time. They were able to get the NAC but started to have nightmares so they stopped taking it. Mood "ok" since last session. Anxiety has been high. They've been able to do some art lately so they see some improvement in motivation. Depression has been "ok". Denies NSSI. Sleeping ok. Discussed elevated lithium level. Will d/c 300mg capsule and recheck.Pt doesn't feel a strong connections with therapist and would like to find someone else. Review of Systems Depressive Symptoms: diminished interest, but not depressed or irritable, no insomnia, no fatigue or loss of energy, not feeling worthless or guilty, normal concentration, no suicidal ideation, no guns or weapons in household. Manic Symptoms: mood is not irritable or elevated, self esteem is not grandiose or increased, no changes in need for sleep. Psychotic Symptoms: no hallucinations, no delusions. Anxiety Symptoms: excessive worry, difficulty controlling worry, increased arousal, specific phobia, but no panic attacks, no sleep disturbances due to worry. Disordered Eating Symptoms: intense fear of gaining weight, poor body image, but weight is not less than 85% of ideal body weight, no amenorrhea, no restricting of diet and/or excessive exercise, no purging or laxative use. Post-traumatic stress disorder symptoms The patient is currently experiencing symptoms, emotional numbing, feeling detached, disinterest in life, hopelessness, but no flashbacks, no intrusive thoughts, no avoiding triggers, no relationship problems, no fearfulness, no startles easily, no irritability, no agitation, no inability to concentrate, no hypervigilance, no sleep disturbance, no nightmares. Inattentive Symptoms: is often disorganized, but does not have difficulty paying attention, is not easily distracted, does not avoid/dislike tasks with sustained mental effort. Other Symptoms/ Concerns: gender identity symptoms. Active Problems Problems ADHD (attention deficit hyperactivity disorder), predominantly hyperactive impulsive type (314.01) (F90.1) Bipolar 1 disorder (296.7) (F31.9) Complex posttraumatic stress disorder (309.81) (F43.10) Encounter for long-term (current) use of medications (V58.69) (Z79.899) Generalized anxiety disorder (300.02) (F41.1) Generalized anxiety disorder with panic attacks (300.02,300.01) (F41.1,F41.0) Metabolic syndrome (277.7) (E88.81) Mood disorder (296.90) (F39) Panic attacks (300.01) (F41.0) Self-injurious behavior (V69.8) (Z72.89) Past Medical History Problems History of atrial fibrillation (V12.59) (Z86.79) Family History Mother Family history of Anxiety Family history of depression (V17.0) (Z81.8) Brother Family history of Anxiety Social History Problems Never smoker No alcohol use Self-injurious behavior (V69.8) (Z72.89) Allergies Medication methylphenidate Adverse Reaction; Psychosis; Recorded By: Adriana Mccallum; 02/25/2022 3:34:53 PM Current Meds Medication NameInstruction Amphetamine-Dextroamphe tamine 20 MG Oral TabletTAKE 1 TABLET 3 times daily Azelastine HCl - 0.1 % Nasal Solutio (more content not included)... Normal [employer] LITHIUMon 07-31-2022 Athalia [Moles/Vol] 1.54 mmol/L High 0.60 - 1.20 [facility] Comment on above: Performed By: #### L ITH #### [facility] [address] [place] [address] Athalia Level, Serumon 07-30 Athalia [Moles/Vol] 1.54 mmol/L above high threshold See Below MG-Psychiatr y-Walker [address] [place] [address] Work Phone: [phone] Comment on above: Reference Range: 0.6 0 - 1.20 Laboratory - Chemistry and C hemistry - challengeon 06-24-2022 Albumin BCP dye [Mass/Vol] 4.8 g/dL 3.4 - 5.0 MG-Psychiatr y-Walker [address] [place] [address] Work Phone: ALP [Catalytic activity/Vol] 87 U/L 33 - 110 [facility]-Psychiatr y-Walker [address] [place] [address] Work Phone: ALT With P-5'-P [Catalytic activity/Vol] 8 U/L 7 - 45 MG-Psychiatr y-Walker [address] [place] [address] Work Phone: [phone] Comment on above: Patients treated wit h Sulfasalazine may generate falsely decreased results for ALT. Anion gap [Moles/Vol] 11 mmol/L 10 - 20 MG- Psychiatr y-Walker [address] [place] [address] Work Phone: [phone] AST With P-5'-P [Catalytic activity/Vol] 12 U/L 9 - 39 [facility]-Psychiatr y-Walker [address] [place] [address] Work Phone: [phone] Bilirubin [Mass/Vol] 0.5 mg/dL 0.0 - 1.2 MG-P sychiatr y-Walker [address] [place] [address] Work Phone: Calcium [Mass/Vol] 9.9 mg/dL 8.6 - 10.6 MG-Psy chiatr y-[address] Work Phone: [phone] Chloride [Moles/Vol] 105 mmol/L 98 - 107 MG-P sychiatr y-Walker [address] [place] [address] Work Phone: CO2 [Moles/Vol] 26 mmol/L 21 - 32 MG-Psychi atr y-[address] Work Phone: [phone] Creatinine [Mass/Vol] 0.74 mg/dL See Below MG- Psychiatr y-Walker [address] [place] [address] Work Phone: Comment on above: Reference Range: 0.5 0 - 1.05 Glucose [Mass/Vol] 105 mg/dL above high threshold 74 - 99 [facility]-Psychiatr y-Walker [address] [place] [address] Work Phone: [phone] Potassium [Moles/Vol] 4.3 mmol/L 3.5 - 5.3 MG- Psychiatr y-Walker [address] [place] [address] Work Phone: [phone] Protein [Mass/Vol] 7.2 g/dL 6.4 - 8.2 MG-Psy chiatr y-Jose [address] [place] [address] Work Phone: [phone] Sodium [Moles/Vol] 138 mmol/L 136 - 145 MG-Psy chiatr y-Walker [address] [place] [address] Work Phone: [phone] TSH Qn 2.00 m[IU]/L See Below MG-Psychiatr y-Walker [address] [place] [address] Work Phone: Comment on above: Reference Range: 0.4 4 - 3.98 TSH testing is performed using different testing methodology at [facility] than at other [facility]. Direct result comparisons should only be made within the same method. Urea nitrogen [Mass/Vol] 4 mg/dL below low threshold 6 - 23 [facility]-Psychiatr y-Walker [address] [place] [address] Work Phone: Lipid Panelon 06-24-2022 Cholesterol [Mass/Vol] 171 mg/dL 0 - 199 MG -Psychiatr y-Walker [address] [place] [address] Work Phone: Comment on above: . AGE DESIRABLE BORD ELMO HIGH HIGH 0-19 Y 0 - 169 170 - 199 >/= 200 20-24 Y 0 - 189 190 - 224 >/= 225 >24 Y 0 - 199 200 - 239 >/= 240 All ranges are based on fasting samples. Specific therapeutic targets will vary based on patient-specific cardiac risk.. Pediatric guidelines reference:Pediatrics 2011, 128(S5). Adult guidelines reference: NCEP ATPIII Guidelines, CORINNE 2001, 258:2486-97. Venipuncture immediately after or during the administration of Metamizole may lead to falsely low results. Testing should be performed immediately prior to Metamizole dosing. Cholesterol in HDL [Mass/Vol] 35.9 mg/dL Abnormal MG[facility] [address] Work Phone: Comment on above: . AGE VERY LOW LOW N ORMAL HIGH 0-19 Y < 35 < 40 40-45 ---- 20-24 Y ---- < 40 >45 ---- >24 Y ---- < 40 40-60 >60. Cholesterol in LDL [Mass/Vol] 118 mg/dL above high threshold 0 - 99 [facility]-Psych[facility]r [address] Work Phone: Comment on above: . NEAR BORD AGE DIPTI RABLE OPTIMAL HIGH HIGH VERY HIGH 0-19 Y 0 - 109 --- 110-129 >/= 130 ---- 20-24 Y 0 - 119 --- 120-159 >/= 160 ---- >24 Y 0 - 99 100-129 130-159 160-189 >/=190. Cholesterol.total/Carmina sterol in HDL [Mass ratio] 4.8 {ratio} [address] Work Phone: Comment on above: REF VALUESDESIRABLE < 3.4HIGH RISK > 5.0 Triglyceride [Mass/Vol] 86 mg/dL 0 - 149 M GRobert [address] Work Phone: Comment on above: . AGE DESIRABLE BORD ELMO HIGH HIGH VERY HIGH 0 D-90 D 19 - 174 ---- ---- ----91 D- 9 Y 0 - 74 75 - 99 >/= 100 ---- 10-19 Y 0 - 89 90 - 129 >/= 130 ---- 20-24 Y 0 - 114 115 - 149 >/= 150 ---- >24 Y 0 - 149 150 - 199 200- 499 >/= 500. Venipuncture immediately after or during the administration of Metamizole may lead to falsely low results. Testing should be performed immediately prior to Metamizole dosing. Lipid Panel 17 mg/dL 0 - 40 [facility] [address] Work Phone: Athalia Level, Serumon 06-24 Athalia [Moles/Vol] 1.48 mmol/L above high threshold See Below MG-Psychiatr [address] Work Phone: Comment on above: Reference Range: 0.6 0 - 1.20 No Panel Informationon 06-24 >90 >90 MG-Psychiatr jaime-Jose [address] [place] [address] Work Phone: Comment on above: CALCULATIONS OF STEVO MATED GFR ARE PERFORMED USING THE 2020 CKD-EPI STUDY REFIT EQUATION WITHOUT THE RACE VARIABLE FOR THE IDMS-TRACEABLE CREATININE METHODS.https://jasn.asnjournals.org/content/early/ ASN.7381952105 Athalia Level, Serumon 10-28 Athalia [Moles/Vol] 1.05 mmol/L See Below MG-P sychiatr [place] Work Phone: Comment on above: Reference Range: 0.6 0 - 1.20 CT HEAD WO CONTRASTOrdered B y: Timmy Estersoo on 05-16-2021 Patient Name: LILY ALTAMIRANO Computed Tomography ACCESSION EXAM DATE/TIME PROCEDURE ORDERING PROVIDER [id number] 05/16/2021 14:[address] Head or Brain w/o DO TRIPATHI LISA Contrast CPT code 99866 Reason For Exam (CT Head or Brain w/o Contrast) MEMORY LOSS Report CT HEAD WITHOUT CONTRAST: INDICATION: Expressive aphasia, memory loss COMPARISON: None. Unenhanced CT images of the head from skull base to vertex were obtained. The images are reviewed in the axial, sagittal and coronal planes. The ventricles and sulci are within normal limits for the patient's age. There is no evidence of hemorrhage, mass or large acute infarct. There is no mass or significant shift of the midline structures. There are no extraaxial or posterior fossa masses or fluid collections. The hypothalamic and parasellar regions are unremarkable. The paranasal sinuses are clear. IMPRESSION: Negative CT examination of the brain. Report Dictated on Workstation: [id number] --- Final --- Dictating Physician: DO ANNA ALFRED Signed Date and Time: 05/16/2021 4:26 pm Signed by: DO ANNA ALFRED Transcribed Date and Time: 05/16/2021 4:27 [facility] Work Phone: [facility], [facility] Results From [facility] - 05/16/2021 4:27 PM EDT Patient Name: LILY QUIROZ Computed Tomography ACCESSION EXAM DATE/TIME PROCEDURE ORDERING PROVIDER [id number] 05/16/2021 14:[address] Head or Brain w/o ESTERLE, DO, TIMMY Contrast CPT code 83453 Reason For Exam (CT Head or Brain w/o Contrast) MEMORY LOSS Report CT HEAD WITHOUT CONTRAST: INDICATION: Expressive aphasia, memory loss COMPARISON: None. Unenhanced CT images of the head from skull base to vertex were obtained. The images are reviewed in the axial, sagittal and coronal planes. The ventricles and sulci are within normal limits for the patient's age. There is no evidence of hemorrhage, mass or large acute infarct. There is no mass or significant shift of the midline structures. There are no extraaxial or posterior fossa masses or fluid collections. The hypothalamic and parasellar regions are unremarkable. The paranasal sinuses are clear. IMPRESSION: Negative CT examination of the brain. Report Dictated on Workstation: [id number] --- Final --- Dictating Physician: DO ANNA ALFRED Signed Date and Time: 05/16/2021 4:26 pm Signed by: DO ANNA ALFRED Transcribed Date and Time: 05/16/2021 4:27 [facility] Work Phone: [facility] Work Phone: CT Head or Brain w/o Contras ton 05-16-2021 CT Head or Brain w/o Contrast Patient Name: LILY QUIROZ Computed Tomography ACCESSION EXAM DATE/TIME PROCEDURE ORDERING PROVIDER [id number] 05/16/2021 14:[address] Head or Brain w/o ESTERLE, DO, TIMMY Contrast CPT code 94132 Reason For Exam (CT Head or Brain w/o Contrast) MEMORY LOSS Report CT HEAD WITHOUT CONTRAST: INDICATION: Expressive aphasia, memory loss COMPARISON: None. Unenhanced CT images of the head from skull base to vertex were obtained. The images are reviewed in the axial, sagittal and coronal planes. The ventricles and sulci are within normal limits for the patient's age. There is no evidence of hemorrhage, mass or large acute infarct. There is no mass or significant shift of the midline structures. There are no extraaxial or posterior fossa masses or fluid collections. The hypothalamic and parasellar regions are unremarkable. The paranasal sinuses are clear. IMPRESSION: Negative CT examination of the brain. Report Dictated on Workstation: [id number] Final Dictating Physician: DO ANNA ALFRED Signed Date and Time: 05/16/2021 4:26 pm Signed by: DO ANNA ALFRED Transcribed Date and Time: 05/16/2021 4:27 Normal [facility] Coronavirus 2019on 0 SARS-CoV-2 (COVID-19) RNA WALLY+probe Ql (Unsp spec) Negative Normal [facility] Comment on above: Result Comment: Nega tive for COVID19 (SARS CoV2) by PCR. This test was developed and its performance characteristics determined by [facility]'s [facility] [place]. This test has been authorized by FDA under an Emergency Use Authorization (EUA). This test has been validated in accordance with the FDA's Guidance Document Policy for Diagnostics Testing in Laboratories Certified to Perform High Complexity Testing under CLIA prior to Emergency use Authorization for Coronavirus Disease 2019 during the Public Health Emergency" issued on January 13, 2020. Performing Laboratory: [facility] [address] [address] [place] [address] Performed By: #### C [id number] #### [place] [address] Lipid Panelon 07-08-2020 Cholesterol [Mass/Vol] 143 mg/dL 0 - 199 MG -Psychiatr y-Walker [address] Work Phone: Comment on above: . AGE DESIRABLE BORD ELMO HIGH HIGH 0-19 Y 0 - 169 170 - 199 >/= 200 20-24 Y 0 - 189 190 - 224 >/= 225 >24 Y 0 - 199 200 - 239 >/= 240 All ranges are based on fasting samples. Specific therapeutic targets will vary based on patient-specific cardiac risk.. Pediatric guidelines reference:Pediatrics 2011, 128(S5). Adult guidelines reference: NCEP ATPIII Guidelines, CORINNE 2001, 258:2486-97. Venipuncture immediately after or during the administration of Metamizole may lead to falsely low results. Testing should be performed immediately prior to Metamizole dosing. Cholesterol in HDL [Mass/Vol] 34.3 mg/dL Abnormal [facility] Electronic Payment and Services (EPS) Work Phone: Comment on above: . AGE VERY LOW LOW N ORMAL HIGH 0-19 Y < 35 < 40 40-45 ---- 20-24 Y ---- < 40 >45 ---- >24 Y ---- < 40 40-60 >60. Cholesterol in LDL [Mass/Vol] 88 mg/dL 0 - 99 [facility] [employer] Work Phone: Comment on above: . NEAR BORD AGE DIPTI RABLE OPTIMAL HIGH HIGH VERY HIGH 0-19 Y 0 - 109 --- 110-129 >/= 130 ---- 20-24 Y 0 - 119 --- 120-159 >/= 160 ---- >24 Y 0 - 99 100-129 130-159 160-189 >/=190. Cholesterol.total/Carmina sterol in HDL [Mass ratio] 4.2 {ratio} [facility] [employer] Work Phone: Comment on above: REF VALUESDESIRABLE < 3.4HIGH RISK > 5.0 Triglyceride [Mass/Vol] 103 mg/dL 0 - 149 M [facility] [employer] Work Phone: Comment on above: . AGE DESIRABLE BORD ELMO HIGH HIGH VERY HIGH 0 D-90 D 19 - 174 ---- ---- ----91 D- 9 Y 0 - 74 75 - 99 >/= 100 ---- 10-19 Y 0 - 89 90 - 129 >/= 130 ---- 20-24 Y 0 - 114 115 - 149 >/= 150 ---- >24 Y 0 - 149 150 - 199 200- 499 >/= 500. Venipuncture immediately after or during the administration of Metamizole may lead to falsely low results. Testing should be performed immediately prior to Metamizole dosing. Lipid Panel 21 mg/dL 0 - 40 [facility] Work Phone: Athalia Level, Serumon 07-08 Athalia [Moles/Vol] 0.59 mmol/L below low threshold See Below [facility] Work Phone: Comment on above: Reference Range: 0.6 0 - 1.20 Urine Teston 04-05 HCG ( test) Ql (U) Negative Negative [facility] Work Phone: Hemoglobin A1Con 09-15-2019 HbA1c (Bld) [Mass fraction] 5.2 % Normal 4.0-5.7 [facility] Comment on above: Result Comment: --Hg bA1C levels may not be accurate in patients who have renal disease, received recent blood transfusions, are anemic, or who have dyshemoglobinemia. Performed By: #### H A1C2 #### [place] [address] [place] [address] HbA1c (Bld) [Mass fraction] 103 mg/dL Normal [facility] Comment on above: Performed By: #### H A1C2 #### [facility] [address] [place] [address] Metabolic Panelon 09-15-2019 HbA1c (Bld) [Mass fraction] 5.2 % 4 - 5.7 % [facility], [place] Comment on above: --HgbA1C levels may not be accurate in patients who have renal disease, received recent blood transfusions, are anemic, or who have dyshemoglobinemia. Otheron 09-15-2019 eAG 103 mg/dL [facility], [place] Test Performed by [facility], [address] [place] [address] [facility], [place] Test Performed by [facility], [address] [place] [address] [facility], [place] Comp Metabolic Panelon 09-13 ALP [Catalytic activity/Vol] 85 U/L Normal 38-126 [facility] Comment on above: Performed By: #### H EMDF, LI3, CMP3, ETOH4, QWAL #### [address] [address] [place], [place] Anion gap [Moles/Vol] 9 Normal [facility] Comment on above: Performed By: #### H EMDF, LI3, CMP3, ETOH4, QWAL #### [address] [place] [address] [place], [place] AST [Catalytic activity/Vol] 29 U/L Normal 15-46 [facility] Comment on above: Performed By: #### H EMDF, LI3, CMP3, ETOH4, QWAL #### [address] [place] [address] [place], [place] Bilirubin [Mass/Vol] 0.5 mg/dL Normal 0.2-1.3 [facility] Comment on above: Performed By: #### H EMDF, LI3, CMP3, ETOH4, QWAL #### [address] [address] [place], [place] CO2 [Moles/Vol] 22 mmol/L Normal 22-30 [facility] Comment on above: Performed By: #### H EMDF, LI3, CMP3, ETOH4, QWAL #### [address] [place] [address] [place], [place] Creatinine [Mass/Vol] 0.66 mg/dL Normal 0.52-1.25 [facility] Comment on above: Performed By: #### H EMDF, LI3, CMP3, ETOH4, QWAL #### [address], [place] GFR/1.73 sq M predicted among blacks MDRD (S/P/Bld) [Vol rate/Area] mL/min/{1.73_m2} Normal >60 [facility] Comment on above: Performed By: #### H EMDF, LI3, CMP3, ETOH4, QWAL #### [address] [address] [place], [place] GFR/1.73 sq M predicted among non-blacks MDRD (S/P/Bld) [Vol rate/Area] mL/min/{1.73_m2} Normal >60 [facility] Comment on above: Result Comment: Sour ce- MDRD equation with creatinine calibration to IDMS(NKDEP) eGFR not recommended for drug dose adjustment Performed By: #### H EMDF, LI3, CMP3, ETOH4, QWAL #### [address] [place] [address] [place], [place] Protein [Mass/Vol] 7.8 g/dL Normal 6.3-8.2 [facility] Comment on above: Performed By: #### H EMDF, LI3, CMP3, ETOH4, QWAL #### [address] [address] [place], [place] Urea nitrogen [Mass/Vol] 6 mg/dL Low 7-20 [facility] Comment on above: Performed By: #### H EMDF, LI3, CMP3, ETOH4, QWAL #### [address] [place] [address] [place], [place] Potassium [Moles/Vol] 4.0 mmol/L Normal 3.5-5.1 [facility] Comment on above: Performed By: #### H EMDF, LI3, CMP3, ETOH4, QWAL #### [address] [place] [address] [place], [place] Sodium [Moles/Vol] 139 mmol/L Normal 135-145 [facility] Comment on above: Performed By: #### H EMDF, LI3, CMP3, ETOH4, QWAL #### [address] [place] [address] [place] Albumin [Mass/Vol] 4.4 g/dL Normal 3.5-5.0 [facility] Comment on above: Performed By: #### H EMDF, LI3, CMP3, ETOH4, QWAL #### [address] [place] [address] [place], [place] Chloride [Moles/Vol] 107 mmol/L Normal 98-107 [facility] Comment on above: Performed By: #### H EMDF, LI3, CMP3, ETOH4, QWAL #### [address] [place] [address] [place], [place] ALT [Catalytic activity/Vol] 22 U/L Normal 13-69 [place], [place] Comment on above: Performed By: #### H EMDF, LI3, CMP3, ETOH4, QWAL #### [address] [address] Calcium [Mass/Vol] 9.8 mg/dL Normal 8.4-10.4 [place], [place] Comment on above: Performed By: #### H EMDF, LI3, CMP3, ETOH4, QWAL #### [address] [place] [address] Glucose [Mass/Vol] 99 mg/dL Normal 70-100 [place], [place] Comment on above: Performed By: #### H EMDF, LI3, CMP3, ETOH4, QWAL #### [address] [place] [address] [place], [place] Complete Urinalysison 2018 Appearance (U) Clear Normal Clear [facility] Comment on above: Performed By: #### C UA2, DRGA4 #### [place] [address] [address] [place], [place] Bilirubin,Urine Negative Normal Negative [facility] Comment on above: Performed By: #### C UA2, DRGA4 #### [place] [address] [address] [place], [place] Color (U) Light-Yellow Normal Lt. Yellow [facility] Comment on above: Performed By: #### C UA2, DRGA4 #### [place] [address] [address] [place], [place] Glucose Ql (U) Normal Normal Normal (<70) [facility] Comment on above: Performed By: #### C UA2, DRGA4 #### [place] [address] [address] [place], [place] Ketone,Urine Negative Normal Negative [facility] Comment on above: Performed By: #### C UA2, DRGA4 #### [address] [place] [address] [place], [place] Leukocytes,Urine Negative Normal Negative [facility] Comment on above: Performed By: #### C UA2, DRGA4 #### [facility] [address] [place], [place] Nitrites,Urine Negative Normal Negative [facility] Comment on above: Performed By: #### C UA2, DRGA4 #### [address] [place] [address] [address] [place] Occult Blood,Urine Negative Normal Negative [facility] Comment on above: Performed By: #### C UA2, DRGA4 #### [address] [place] [address] [place] pH (U) 6.5 Normal 5.0-8.0 [facility] Comment on above: Performed By: #### C UA2, DRGA4 #### [address] [place] [address] [place] Protein (U) [Mass/Vol] Negative Normal Negative [facility] Comment on above: Performed By: #### C UA2, DRGA4 #### [address] [place] [address] [address] [place], [place] Specific Wilson,Urine 1.009 Normal 1.005-1.030 [facility] Comment on above: Performed By: #### C UA2, DRGA4 #### [place] [address] [address] [place] Urobilinogen,Urine Normal Normal Normal (0-1) [facility] Comment on above: Performed By: #### C UA2, DRGA4 #### [address] [place] [address] [place] Drugs of Abuseon 09-13-2019 Opiates, Ur Negative Normal [facility] Comment on above: Performed By: #### C UA2, DRGA4 #### [place] [address] [address] [facility], [place] Methadone, Ur Negative Normal [facility] Comment on above: Performed By: #### C UA2, DRGA4 #### [place] [address] [place] Cocaine, Ur Negative Normal [facility] Comment on above: Performed By: #### C UA2, DRGA4 #### [facility] [address] [place] [facility] [place] [address] Benzodiazepines, Ur Negative Normal [facility] Comment on above: Performed By: #### C UA2, DRGA4 #### [facility] [address] [place] [facility] [address] Phencyclidine (PCP), Ur Negative Normal [facility] Comment on above: Result Comment: The expected value for all of the drugs listed above is Negative. The following drugs or drug groups have been screened for by Immunoassay at the following thresholds: Amphetamine class (1000 ng/mL), Barbiturates (200 ng/mL), Benzodiazepines (200 ng/mL), Cocaine (300 ng/mL), Methadone (300 ng/mL), Opiates (300 ng/mL), Oxycodone (100 ng/mL), and PCP (25 ng/mL). NOTE: These results are for medical treatment only. Analysis performed using non-forensic procedures. POSITIVE results are NOT confirmed by a more specific alternative method unless requested. If confirmation is needed, request confirmation under separate order. Performed By: #### C UA2, DRGA4 #### [address] [place] [address] [place] [facility] [place] [address] Barbiturates, Ur Negative Normal [facility] Comment on above: Performed By: #### C UA2, DRGA4 #### [place] [address] [place] [facility] [address] Amphetamines, Ur Negative Normal [facility] Comment on above: Performed By: #### C UA2, DRGA4 #### [address] [address] [place] [facility] [address] Oxycodone/Oxymorphine,U r Negative Normal [facility] Comment on above: Performed By: #### C UA2, DRGA4 #### [address] [place] [address] [place] [facility] [place] [address] Ethanol Serum/Plasmaon 09-13 Ethanol-Serum/Plasma < 0.010 Normal 0.000-0.010 [facility] Comment on above: Result Comment: NOTE : This result is for medical treatment only. Analysis performed using non-forensic procedures. Performed By: #### H EMDF, LI3, CMP3, ETOH4, QWAL #### [facility] [address] [place] [address] Hematologyon 09-13-2019 Basophils/100 WBC (Bld) 0.6 % 0 - 2 % M [place], [place] Eosinophils (Bld) [#/Vol] 0.2 10*3/uL 0 - 0.5 10*3/uL [place], [place] Eosinophils/100 WBC (Bld) 1.7 % 1 - 6 % [place] Hematocrit (Bld) [Volume fraction] 39.9 % 35 - 47 % [place] Hemoglobin (Bld) [Mass/Vol] 13.9 g/dL 11.7 - 16 g/dL [place] Lymphocytes (Bld) [#/Vol] 2.5 10*3/uL 1 - 4.3 10*3/uL [place] Lymphocytes/100 WBC (Bld) 19.9 % Low 20 - 40 % [place] MCH (RBC) [Entitic mass] 31.1 pg 26 - 34 pg [place] MCV (RBC) [Entitic vol] 89.1 fL 79 - 98 fL M [place], [place] Monocytes (Bld) [#/Vol] 0.8 10*3/uL 0 - 0.8 10*3/uL [place] Monocytes/100 WBC (Bld) 6.3 % 2 - 10 % [place], [place] Platelets (Bld) [#/Vol] 243 10*3/uL 140 - 440 10*3/uL [place] RBC (Bld) [#/Vol] 4.48 10*6/uL 3.8 - 5.2 10*6/uL [place] WBC (Bld) [#/Vol] 12.6 10*3/uL High 3.6 - 10.7 10*3/uL [place] Hemogram w/ Autodiffon 09-13 Abs Baso Cnt 0.1 10*3/uL Normal 0.0-0.2 [facility] Comment on above: Performed By: #### H EMDF, LI3, CMP3, ETOH4, QWAL #### [address] [address] [place], [place] Abs Neutrophile Cnt 9.0 10*3/uL High 1.8-7.0 [facility] Comment on above: Performed By: #### H EMDF, LI3, CMP3, ETOH4, QWAL #### [address] [address] [place] Basophils/100 WBC (Bld) 0.6 % Normal 0.0-2.0 [facility] Comment on above: Performed By: #### H EMDF, LI3, CMP3, ETOH4, QWAL #### [address] Eosinophils (Bld) [#/Vol] 0.2 10*3/uL Normal 0.0-0.5 [facility] Comment on above: Performed By: #### H EMDF, LI3, CMP3, ETOH4, QWAL #### [address] Eosinophils/100 WBC (Bld) 1.7 % Normal 1.0-6.0 [facility] Comment on above: Performed By: #### H EMDF, LI3, CMP3, ETOH4, QWAL #### [address] Erythrocyte distribution width (RBC) [Ratio] 13.6 % Normal 11.5-14.5 [facility] Comment on above: Performed By: #### H EMDF, LI3, CMP3, ETOH4, QWAL #### [address] Granulocytes/100 WBC (Bld) 71.5 % Normal 40.0-80.0 [facility] Comment on above: Performed By: #### H EMDF, LI3, CMP3, ETOH4, QWAL #### [address] Hematocrit (Bld) [Volume fraction] 39.9 % Normal 35.0-47.0 [facility] Comment on above: Performed By: #### H EMDF, LI3, CMP3, ETOH4, QWAL #### [address] Hemoglobin (Bld) [Mass/Vol] 13.9 g/dL Normal 11.7-16.0 [facility] Comment on above: Performed By: #### H EMDF, LI3, CMP3, ETOH4, QWAL #### [address] Lymphocytes (Bld) [#/Vol] 2.5 10*3/uL Normal 1.0-4.3 [facility] Comment on above: Performed By: #### H EMDF, LI3, CMP3, ETOH4, QWAL #### [address] Lymphocytes/100 WBC (Bld) 19.9 % Low 20.0-40.0 [facility] Comment on above: Performed By: #### H EMDF, LI3, CMP3, ETOH4, QWAL #### [address] MCH (RBC) [Entitic mass] 31.1 pg Normal 26.0-34.0 [facility] Comment on above: Performed By: #### H EMDF, LI3, CMP3, ETOH4, QWAL #### [address] MCHC (RBC) [Mass/Vol] 34.9 % Normal 32.0-36.0 [facility] Comment on above: Performed By: #### H EMDF, LI3, CMP3, ETOH4, QWAL #### [address] MCV (RBC) [Entitic vol] 89.1 fL Normal 79.0-98.0 [facility] Comment on above: Performed By: #### H EMDF, LI3, CMP3, ETOH4, QWAL #### [address] Monocytes (Bld) [#/Vol] 0.8 10*3/uL Normal 0.0-0.8 [facility] Comment on above: Performed By: #### H EMDF, LI3, CMP3, ETOH4, QWAL #### [address] [address] [place] Monocytes/100 WBC (Bld) 6.3 % Normal 2.0-10.0 [facility] Comment on above: Performed By: #### H EMDF, LI3, CMP3, ETOH4, QWAL #### [address] [address] [place] Platelet mean volume (Bld) [Entitic vol] 9.7 fL Normal 7.4-10.4 [facility] Comment on above: Performed By: #### H EMDF, LI3, CMP3, ETOH4, QWAL #### [address] [place] [address] [place] Platelets (Bld) [#/Vol] 243 10*3/uL Normal 140-440 [facility] Comment on above: Performed By: #### H EMDF, LI3, CMP3, ETOH4, QWAL #### [address] [place] [address] [place] RBC (Bld) [#/Vol] 4.48 10*6/uL Normal 3.80-5.20 [facility] Comment on above: Performed By: #### H EMDF, LI3, CMP3, ETOH4, QWAL #### [address] WBC (Bld) [#/Vol] 12.6 10*3/uL High 3.6-10.7 [facility] Comment on above: Performed By: #### H EMDF, LI3, CMP3, ETOH4, QWAL #### [address] Lithiumon 09-13-2019 Athalia [Moles/Vol] 0.8 mmol/L Normal 0.6-1.2 [facility] Comment on above: Performed By: #### H EMDF, LI3, CMP3, ETOH4, QWAL #### [address] [address] [place] [address] Metabolic Panelon 09-13-2019 Albumin [Mass/Vol] 4.4 g/dL 3.5 - 5 g/dL [place] ALP [Catalytic activity/Vol] 85 U/L 38 - 126 U/L [place], [place] Anion gap [Moles/Vol] 9 mmol/L [place], [place] AST [Catalytic activity/Vol] 29 U/L 15 - 46 U/L [place] Chloride [Moles/Vol] 107 mmol/L 98 - 10 7 mmol/L [place] CO2 [Moles/Vol] 22 mmol/L 22 - 30 mmol/L [place] Creatinine [Mass/Vol] 0.66 mg/dL 0.52 - 1.25 mg/dL [place], [place] GFR/1.73 sq M predicted among blacks MDRD (S/P/Bld) [Vol rate/Area] mL/min/{1.73_m2} >60 mL/min [place], [place] Potassium [Moles/Vol] 4.0 mmol/L 3.5 - 5.1 mmol/L [place] Protein [Mass/Vol] 7.8 g/dL 6.3 - 8.2 g/dL [place] Sodium [Moles/Vol] 139 mmol/L 135 - 145 mmol/L [place], [place] Urea nitrogen [Mass/Vol] 6 mg/dL Low 7 - 20 mg/dL [place] Otheron 09-13-2019 hCG Qual Negative m[IU]/mL [place], [place] Comment on above: REF RANGE: Negative .... < 3 Questionable Rpt 48-72 Hr Positive ..... > 10 Test Performed by [facility], [address] [place] [id number] [place] [address] Test Performed by [facility], [address] [place] [id number] [place] [address] Amphetamines, urine Negative [place], [place] Barbiturates, Ur Negative [place] Benzodiazepine Ur Qual Negative [place], [place] Cocaine Metabolites, Ur Negative M [place], [place] Methadone, Urine Negative [facility], [place] Opiates, Urine Negative [place] Oxycodone Screen, Ur Negative [place] PCP, Urine Negative [place], [place] Comment on above: The expected value f or all of the drugs listed above is Negative. The following drugs or drug groups have been screened for by Immunoassay at the following thresholds: Amphetamine class (1000 ng/mL), Barbiturates (200 ng/mL), Benzodiazepines (200 ng/mL), Cocaine (300 ng/mL), Methadone (300 ng/mL), Opiates (300 ng/mL), Oxycodone (100 ng/mL), and PCP (25 ng/mL). NOTE: These results are for medical treatment only. Analysis performed using non-forensic procedures. POSITIVE results are NOT confirmed by a more specific alternative method unless requested. If confirmation is needed, request confirmation under separate order. Test Performed by [facility], [facility] [address] Test Performed by [place] [address] Bilirubin Ql (U) 0.5 mg/dL 0.2 - 1.3 mg/dL [place], [place] EGFR IF NonAfrican Japanese >60.0 >60 mL/min [place], [place] Comment on above: Source- MDRD equatio n with creatinine calibration to IDMS(NKDEP) eGFR not recommended for drug dose adjustment Ethanol Lvl <0.010 0 - 0.01 g/dL [place], [place] Comment on above: NOTE: This result is for medical treatment only. Analysis performed using non-forensic procedures. Interpretation and review of laboratory results Abnormal [place] Test Performed by [facility], [facility] [address] Test Performed by [place] [address] Athalia Lvl 0.8 mmol/L 0.6 - 1.2 mmol/L [place] Test Performed by [address] Test Performed by [address] Bilirubin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 [place] [phone] Nitrite Ql (U) Negative Normal NEGATIVE [facility] Comment on above: Performed By: #### D RUG3 #### [facility] [address] [facility], [place] [phone] pH (Bld) 7.0 Normal 5.0 - 8.0 [facility] Comment on above: Performed By: #### D RUG3 #### [facility] [address] [facility], [place] [phone] Protein (U) [Mass/Vol] Negative Normal NEGATIVE [facility] Comment on above: Performed By: #### D RUG3 #### [facility] [address] [facility], [place] [phone] Specific gravity (U) [Rel density] 1.003 Low 1.005 - 1.035 [facility] Comment on above: Performed By: #### D RUG3 #### [facility] [address] [facility], [place] [phone] Urobilinogen Qn (U) <2.0 Normal 0.0 - 1.9 [facility] Comment on above: Performed By: #### D RUG3 #### [facility] [address] [facility], [place] [phone] Clinical Event Note-Bifronta l ECT #3on 12-30-2018 Clinical Event Note-Bifrontal ECT #3 Event: Topic: Bifrontal ECT #3 Details: Pt interviewed, chart and txment plan reviewed. she had issues getting her earlier this week due to weather and uri Now states mood has been "ok." No si Sleep, appetite, energy, interest and concentration have all been ok VISHNU completed, low acute risk to harm self Motor Seizure - 49 seconds EEG Seizure - 96 seconds Plan ECT on Wednesday Electronic Signatures: Adriana Adames) (Signed 30-Dec-2018 11:19) Authored: Event Last Updated: 30-Dec-2018 11:19 by Adriana Adames) [facility] Homegoing Instructionson Homegoing Instructions Additional Instructions: Medication Information: Medication Instructions Do not have anything by mouth after midnight the night before your treatment unless instructed otherwise. You may have clear liquids up until 6 hours prior to your appointment. Take the following medications with a sip of water in the morning prior to ECT: Protonix Do not take the following medication(s) after 4:00 PM the night before or morning of ECT: Athalia, klonopin Appointments: Service/Clinician NameECT- Please stop at Registration 10-15 minutes prior to your appointment time. Date/[id number] 09:[address] [facility], [address] [address] Third floor [phone] Appointment CommentPlease remember that we must have at least 24 hours notice if you need to cancel your appointment. If you cancel your appointment late or do not show for your appointment 3 times, no additional appointments will be scheduled. It is very important that you arrive for your appointment at or before the scheduled time. If you are more than 10 minutes late, there is a chance that we may have to cancel the appointment. Electronic Signatures: Lexy Hylton) (Signed 30-Dec-2018 11:56) Authored: Additional Instructions Last Updated: 30-Dec-2018 11:56 by Lexy Hylton) [facility] Patient Profile - Preop v2on 12-30-2018 Patient Profile - Preop v2 Profile: Initial Info: How to be AddressedKate(1) Spoken Language PreferredEnglish (1) Source of Informationpatient Are you currently using the Personal Electronic Health Record or YastCAREno (1) Are you interested in learning more about MYCARE for the management of your healthnot at this time Stated Reason for AdmissionECT Primary Contact Name and NumberErick Guajardo [phone] Patient Belongingsremains with patient Patient Belongings Remaining with Patientclothing; cell phone/electronics; purse/wallet; turcios/credit card; vision aids Medications Brought to Hospitalno General Health: Weight in kg72.5 kilogram(s) Weight in iyg201.8 pound(s) Weight Methodstated Height in cm172.7 centimeter(s) Height in feet5 feet Height in inches8 inch(es) Height Methodstated BMI (kg/m2)24.308 square meter Patient or Family Member Reaction to Anesthesiano previous reaction; patient reaction Patient Reaction to Anesthesianausea and vomiting Blood Avoidance/Restrictionsn one Previous Transfusion Reactionno Health Mgmt: Symptoms/Conditions Managed at Homebehavioral health; cardiovascular; gastrointestinal; HEENT (head, eyes, ears, nose, throat); musculoskeletal; neurological; endocrine Are You Currently Breastfeedingunable to answer Behavioral Health Symptoms/Conditionsbipo lar affective disorder; depression; anxiety; post traumatic stress Behavioral Management Strategiescounseling; medication therapy Behavioral Health Symptoms/Conditions CommentInitiated Electroconvulsive Therapy Cardiovascular Symptoms/Conditionsdysr hythmia Cardiovascular Management Strategiesmedication therapy Cardiovascular Symptoms/Conditions CommentA-fib Endocrine Symptoms/Conditions CommentMTHFR mutation Gastrointestinal Symptoms/Conditionsrefl ux/heartburn; constipation Gastrointestinal Management Strategiesmedication therapy Gastrointestinal Symptoms/Conditions CommentGERD HEENT Symptoms/Conditionsvisi on problem(s) HEENT Management Strategiesmedication therapy HEENT Symptoms/Conditions CommentEnvironmental allergens; stigmatism Musculoskeletal Symptoms/Conditions 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 Neurological Symptoms/Conditionshead trauma Neurological Management Strategiesmedication therapy Neurological Symptoms/Conditions Commentmigraines; hx epilepsy Are You no Barriers to Managing Healthfinancial resources Relationship/Environ: Lives Withparent(s)(2) Living Arrangementshouse(2) Resource/Environmental Concernsfinancial [facility]ated [facility] Substance: Current or Former Substance Use never: Cigarette/Tobacco, e-Cigarette/Vaping YES: Alcohol, Street Drugs Alcohol Use Statuspast alcohol Alcohol Frequencymonthly or less Alcohol Last Usecouple years Street Drug/Inhalant/ Medication Use Statuscurrent street drug/inhalant/medicatio n abuse Street Drug/Medication/ Inhalant Typemarijuana Street Drug/Medication/ Inhalant Routesmoking Frequency of Street Drug/Medication/Inhalan t Usemonthly or less Risk Screens: Advance Directive Medicalno Advance Directive Information Givenpatient/family declined Advance Directive Mental Healthno; information given/requested Advance Directive Information Given (Mental Health)patient/family declined During the past month, have you often been bothered by feeling down, depressed or hopelessyes During the past month, have you often had little interest or pleasure in doing thingsyes Have you had any thoughts of harming yourselfno Admits to having thoughts to self harm, pt has been superficially cutting the front of her left upper leg Have you had any thoughts of harming anyone elseno Patient is Able to be Assessed for Learningyes Factors Influencing Readiness to Learndepression; interest in learning Factors that Impact Ability to Learnnone Devices/Methods Used to Communicateglasses Learning Preferencesindividual instruction; computer/internet Cultural Considerationsnone Developmental Considerationsdevelopme ntal considerations ADHD Jew Considerationsnone Other learner availableno [place] RiskPatient location auto qualifies him/her for HIGH RISK. Are there any cultural, spiritual, baptist practices/values/needs that are important for us to knowno Pain Scalenumerical 0-10 Pain Scale Educationteaching provided Current Pain Level0 = None Acceptable Pain Level5 = Moderate Expression of Pain (nonverbal)none Lifestyle Changes/Adaptations in Response to Painno change Chronic Painno Information Review: Allergies, Home Meds and Significant Events have been Reviewed and Verified with Patient/Familyyes Allergy, Intolerance, Adverse Event: Allergies: No Known Allergies: Active Intolerances: Dilaudid: Drug, Nausea/Vomiting, Active Significant Events: 21-Dec-2018 .Influenza- Influenza Virus: Immunizations, Active, 21-Dec-2018 Electronic Signatures: Lexy Hylton (MARITZA) (Signed 30-Dec-2018 10:32) Authored: Profile, Additional Information Last Updated: 30-Dec-2018 10:32 by Lexy Hylton (MARITZA) References: 1. Data Referenced From Patient Profile - Adult v2" 12/20/2018 6:09 PM 2. Data Referenced From Psychosocial Assessment - Behavioral" 12/22/2018 4:13 PM Normal [facility] Preop Checkliston 12-30-2018 Preop Checklist Preop Checklist: Preop Checklist: Arrival [id number] Arrival Time09:45 Procedure TypeECT NPO [id number] 07:00 NPO Commenttook Protonix with sip of water this morning, otherwise NPO since last evening ID Band Onyes Allergy Bandno known allergies Consent Signedyes H&P Completeyes Anesthesia Assessment Completedyes EKG Performednot ordered Chest X-Ray Performednot ordered Chlorhexadine Bath Givennot applicable Hair Washedno Soap and water bath with hair shampoo the night before surgeryno SCD's Appliednot applicable JAYNA Hose Appliednot ordered Denturesnot applicable Prostheticsnot applicable Hearing Aidsnot applicable Valuables Securedplaced in locker Glasses / Contactsplaced in locker Bowel Prepno Cardiovascular Assessment: Apicalregular Radial Pulsespalpable Extremitieswarm, well perfused Respiratory Assessment: Respirationsunlabored regular Air Exchangeequal, good Breath Soundsclear Neurological Assessment: Level of Consciousnessalert, oriented Mobilitymoves all extremities Able to Express Selfyes Age Appropriateyes Emotional Statusanxious Preop Education: Surgical Site Infection PreventionN/A Pain Scales and Managementyes Language / Communication: Language / CommunicationEnglish Electronic Signatures: Lexy Hylton) (Signed 30-Dec-2018 10:27) Authored: Preop Checklist Last Updated: 30-Dec-2018 10:27 by Lexy Hylton (MARITZA) Normal [facility] Clinical Event Note-Bifronta l ECTon 12-23-2018 Clinical Event Note-Bifrontal ECT Event: Topic: Bifrontal ECT Details: Pt interviewed, chart and txment plan reviewed. Tolerated ECT Well No complications Motor Seizure - 51 seconds EEG Seizure - 73 seconds Electronic Signatures: Adriana Adames) (Signed 23-Dec-2018 14:54) Authored: Event Last Updated: 23-Dec-2018 14:54 by Adriana Adames) [facility] Preop Checkliston 12-23-2018 Preop Checklist Preop Checklist: Preop Checklist: Arrival [id number] Procedure TypeECT NPO [id number] NPO CommentNPO since midnight except for BP meds which are to be given with Admission Nursing Assessment sip of water as instructed by physician. ID Band Onyes Allergy Bandno known allergies Consent Signedyes H&P Completeyes EKG Performedyes Chest X-Ray Performednot ordered Chlorhexadine Bath Givennot applicable Hair Washedno Soap and water bath with hair shampoo the night before surgeryno SCD's Appliednot applicable JAYNA Hose Appliednot ordered Prostheticsnot applicable Hearing Aidsnot applicable Valuables Securedplaced in locker Cardiovascular Assessment: Apicalregular Radial Pulsespalpable Pedal Pulsespalpable Extremitieswarm Respiratory Assessment: Respirationsunlabored regular Air Exchangeequal, good Neurological Assessment: Level of Consciousnessalert, oriented Mobilitymoves all extremities Able to Express Selfyes Age Appropriateyes Emotional Statuscalm Preop Education: Surgical Site Infection PreventionN/A Pain Scales and Managementyes Language / Communication: Language / CommunicationEnglish Electronic Signatures: Justo Yost (RN) (Signed 23-Dec-2018 00:55) Authored: Preop Checklist Last Updated: 23-Dec-2018 00:55 by Justo Yost (RN) [facility] Daily Progress Note - Psychi atryon 12-22-2018 Daily Progress Note - Psychiatry Subjective Data: LILY QUIROZ is a 28 year old Female who is Hospital Day # 3. [place] that she had recurrence of symptoms because she was unable to make her outpatient maintenance ECT appointments since time of last discharge. She reported 1/10 mood prior to admission and 9/10 today after ECT. She last had thoughts of suicide day before yesterday. Reports good sleep and appetite. Endorses memory impairment from ECT. Able to identify different coping strategies. Objective: Objective Information: T PRBPSpO2 [id number]/6496% Date/Time12/22 5: 5: 5: 5: 13:15 Range(36.6C - 37.2C ) (88 - 94 ) (16 - 18 ) (108 - 115 )/ (64 - 69 ) (96% - 96% ) Highest temp of 37.2 C was recorded at 12/22 5:27 Mental Status Exam: General: NAD Appearance: CF with short cropped hair and glasses dressed in personal attire; adequate grooming and hygiene. Appears stated age. Attitude: Attentive, cooperative, engaged with interview Behavior: Appropriate eye contact. Motor Activity: No PMA/PMR; no hand tremor noted. Gait fluid. Speech: Fluent with regular rate, tone, and, volume. Normal syntax and prosody. Good quantity. Mood: "Better" Affect: Full-range, stable, reactive, happy, pleasant Thought Process: Coherent, logical, linear Thought Content: Denied suicidal and homicidal thoughts/intent/desires ; no delusions elicited. Thought Perception: Did not endorse auditory or visual hallucinations; did not appear to be responding to hallucinatory stimuli. Cognition: Alert, grossly intact. Endorses memory impairment due to ECT Insight: Fair Judgment: Fair Medications: Continuous Medications --------- No continuous medications are active Scheduled Medications --------- 1. Aspirin Chewable: 81 mg Oral Daily 2. Desvenlafaxine Extended Release (NON-Formulary): 50 mg Oral Every 24 Hours 3. Athalia Carbonate Extended Release: 300 mg Oral 4. Athalia Carbonate Extended Release: 600 mg Oral 5. Loratadine: 10 mg Oral Daily 6. Metoprolol Succinate Extended Release: 50 mg Oral Daily 7. Pantoprazole: 40 mg Oral Daily PRN Medications --------- 1. Acetaminophen: 650 mg Oral Every 4 Hours 2. clonazePAM (KLONOPIN): 1 mg Oral Every 12 Hours 3. diphenhydrAMINE: 50 mg Oral Every 6 Hours 4. diphenhydrAMINE Injectable: 50 mg IntraMuscular Every 6 Hours 5. Haloperidol Lactate: 5 mg Oral Every 6 Hours 6. Haloperidol Lactate Injectable: 5 mg IntraMuscular Every 6 Hours 7. Ibuprofen: 400 mg Oral Every 6 Hours 8. LORazepam: 1 mg Oral Every 6 Hours 9. LORazepam Injectable: 1 mg IntraMuscular Every 6 Hours 10. Magnesium Hydroxide -Al Hydrox -Simethicone Oral Liquid: 30 mL Oral Every 6 Hours 11. Magnesium Hydroxide Oral Liquid CONCENTRATE: 10 mL Oral Every 24 Hours 12. Melatonin: 3 mg Oral At Bedtime Assessment and Plan: Assessment: Lily Quiroz is a 28yo F with history of Bipolar 1 Disorder, unspecified anxiety disorder, PTSD, cannabis use disorder, and afib not on AC who is admitted for worsening mood and recurrence of suicidal thoughts. Readmitted to [facility] after missing her outpatient maintenance ECT appointments. ECT series has been changed from RUL to BF this admission. 12/22/2018: Patient reporting resolution of mood symptoms and suicidality with one session of inpatient ECT. Will continue acute inpatient ECT series, next session tomorrow. Continue to monitor symptoms. Impression: Bipolar 1 disorder, currently depressed Unspecified anxiety disorder Cannabis use disorder PTSD by history Plan: #Bipolar 1 disorder, currently depressed; Unspecified anxiety disorder - Legal status: Voluntary - ECT: Session #2 on 12/23/2018 - Continue - Athalia 300mg / 600mg PO BID (0900 and 1600 on pre-ECT days, 1300 and 2000 on ECT days) - Klonopin 1mg PO BID PRN anxiety - Desvenlafaxine Succinate ER 50mg PO qday - For agitation: Benadryl 50mg PO/IM q6h PRN, Haldol 5mg PO/IM q6h PRN, Ativan 1mg PO/IM q6h PRN severe agitation/psychosis #Cannabis use disorder - Continue motivational interviewing and dual dx groups #MTHFR Gene - Continue ASA 81mg PO qday #Allergies - Continue home Loratadine 10mg PO qday #afib - Continue home Metroprolol XR 50mg PO qHS #GERD - Continue Pantoprazole 40mg PO qday Diet: Regular Dispo: Back home; discharge today Follow-up: (Dr. Peterson) Medication Consent: Medication Consent: no medication changes necessary for review. Signature/Cosignature/A ttestation: Attending AttestationI saw and evaluated the patient. I personally obtained the burr and critical portions of the history and physical exam or was physically present for burr and critical portions performed by the resident/fellow. I reviewed the resident/fellows documentation and discussed the patient with the resident/fellow. I agree with the resident/fellows medical decision making as documented in the residents note. I personally evaluated the patient (as noted in the above attestation) on 22-Dec-2018 Electronic Signatures for Addendum Section: Daphne George (Resident)) (Signed Addendum 22-Dec-2018 16:23) As per Dr. Peterson, will increase Pristiq to 100mg PO qday. Will reassess symptoms tomorrow after ECT; if appropriate can discharge back home with plan for biweekly outpatient ECT on Mondays and Wednesdays. Electronic Signatures: Daphne George (Resident)) (Signed 22-Dec-2018 10:11) Authored: Subjective Data, Objective, Assessment and Plan, Medication Consent, Signature/Cosignature/A ttestation Matheus Avila) (Signed 22-Dec-2018 12:03) Authored: Signature/Cosignature/A ttestation Co-Signer: Subjective Data, Objective, Assessment and Plan, Medication Consent, Signature/Cosignature/A ttestation Last Updated: 22-Dec-2018 16:23 by Daphne George (Resident)) [facility] Discharge Planning Noteon Discharge Planning Note Discharge Needs Assessment: Discharge Planning Assessment [id number] Discharge Planning Assessment Completed byRENITA Moarles Patient Learning: Factors that Impact Ability to Learnacuteness of illness(1) Other Factors: Functional Screen: In the recent/past 2-4 weeks, patient or family have noticedno issues that require a rehabilitation consult at this time(2) Discharge Planning: Discharge Plannin12/21/18-16:19. 28 year old female who was admitted on involuntary basis due to expressing SI with a plan to either overdose to drive to [place] to jump off the bridge where her spouse committed suicide approximately one year ago. Patient is currently receiving ECT (19 sessions) at [facility] - next appointment is on 12/06/18. Prior to considering suicide, the client admitted to smoking THC which she does not smoke on a regular basis. Updated assessement on 12/21/18: Readmitted for increased depression, feeling unsafe, having suicidal thoughts with plan to overdose on Athalia. Plan A: to stabilize on ECT, discharge back home with outpatient follow up. Plan B: none per treatment team. To follow. PEREZ Sparrow. 12/22/18-SW-16:00. Continuing to stabilize on ECT; To follow. PEREZ Sparrow. 12/23/18 Social Work Note 17:55 Pt. will be discharged today in a stable condition. Her ride is on the way. [facility] arranged her follow up appointments. She will see Dr. Adriana Peterson at the [facility] for psychiatry on 01/04 @ 4:30pm. She will see her counselor February at [facility] on 01/14 @ 10am. They state they will call her if there are any cancellations to try to get her in sooner. She is also scheduled [place] [facility] [place] No additional concerns were addressed. ADRIENNE Gomez Final Disposition/Discharge: Disposition/Discharge Information: Discharge/Transfer Information: Discharge/Transfer Date/[id number]-[id number]-3749 17:30 Discharged Accompanied Byfamily member Discharge Modeambulatory Transportation Methodprivate car Valuables/Medications/B elongings Returnedyes Security Envelope Returnedyes Final DispositionHome Electronic Signatures: Sydni Sanchez (SW) (Signed 22-Dec-2018 16:21) Authored: Discharge Planning Note Lizette Rose (CLIN COOR) (Signed 23-Dec-2018 16:51) Authored: Final Disposition/Discharge Karen Goldsmith (ADRIENNE) (Signed 23-Dec-2018 16:57) Authored: Discharge Planning Note Last Updated: 23-Dec-2018 16:57 by Karen Goldsmith (ADRIENNE) References: 1. Data Referenced From 3. Plan of Care - Behavioral" 12/21/2018 04:49 PM 2. Data Referenced From Admission Risk Screen - Adult" 12/20/2018 06:02 PM Normal [facility] Discharge [id number] Discharge Profile2 Discharge Orders: Anticipated Discharge Date: Anticipated Discharge [id number] Problem List: Admitting Dx: Suicidal ideation: Catalog Name: Suicidal ideations Prelim Disch Dx: Bipolar disorder, current episode depressed, severe, without psychotic features: Catalog Name: Bipolar disorder, current episode depressed, severe, without psychotic features Suicidal ideation: Catalog Name: Suicidal ideations Significant Events: .Influenza- Influenza Virus: Immunizations, 21-Dec-2018 Hospital Providers: Provider RoleProvider Name Adriana Kwok Lisa M Activity: activity as tolerated. Diet: Dietregular Additional Orders: Additional Instructions Please note the following changes made to your medication list: - We INCREASED Desvenlafaxine (Pristiq) to 100mg once a day for mood. We continued your other home medications as prescribed by your outpatient provider. - Athalia 300mg once a day in the morning and 600mg once a day at night - Clonazepam 1mg twice a day as needed for anxiety. Please make all your follow-up appointments. Please note that you will receive acute ECT series (MWF) on an outpatient basis. Your next scheduled session is 12/26/2018, at 9:15AM. Psychiatric Continuing Care Plan: Reason for Hospitalization: anxiety, depression, suicidal thoughts Discharge Destination: home Advance Directive Medical: no (1) Social Interventions: Pending/Recommended/Est ablished: crisis and outreach services/programs, Outpatient ECT, bereavement support groups Additional Resources for Patient and Family: Nationwide Suicide Hotline - 1 (627) SUICIDE (692-8129), [facility] - (747) 835-TYRONE (0480), National [place] on Mental Illness - [email or web address] Successful Interventions during Inpatient Hospital Stay: coping skills, daily routine/ structure, group programming, music, relaxation techniques, sleep routines, ECT Tobacco Use: Screening: Was the patient screened within the first 3 days of admission for tobacco use (cigarettes, smokeless tobacco, pipe, and cigar) within the previous 30 days: yes; NOT tobacco user This patient is being discharged on multiple antipsychotic medications: no: Take all medications until outpatient provider advises otherwise. Questions After Hospitalization: Phone Number: [address] Advance Directives: Advance Directive (Medical)no Advance Directive Information Givenpatient/family declined Reason No Advance Directive (Medical)did not wish to discuss adv directive/surrogate Advance Directive (Mental Health)no Advance Directive Information Given (Mental Health)yes; provided in admission packet Reason No Advance Directive (Mental Health)did not wish to discuss adv directive/surrogate Transition Record: Transition Record Discussed: All 11 elements of this patients transition record were discussed with the patient/caregiver and the Next Level of Care Provider Transition Record Given: A copy of the transition record was given to the patient and was transmitted to the Next Level of Care Provider Behavioral Health Labs: Toxicology + Therapeutic Drugs: 21-Dec-2018 06:54, Athalia Level, Serum Athalia Level, Serum: 0.87, [0.60 - 1.20 mmol/L] Vascular: Follow-Up - Vascular Surgeon: Physician/Dept./Service Vascular Surgeon Provider FINAL REVIEW of Orders: Final Review: Final Review of Medication Reconciliation and Orders Completedby Physician Reviewing William George, MD (Resident) at 23-Dec-2018 14:59:51 Appointments: Follow-Up Appointment 01: Physician/Dept/Maxx Peterson MD, Psychiatry. Reason for Referral(medication management). Scheduled Date/[id number] 16:30 Location/ Dept. of Outpatient Adult Psychiatry, [address] ([address], [place] Phone [phone]; f. [phone]; Follow-Up Appointment 02: Physician/Dept/Andi clayton Reason for ReferralCounselor Call to Schedule in2-3 days Scheduled Date/[id number] 10:00 [facility] [address] [place], [place] Phone [phone]; f. [phone]; CommentsThey will call you if anything comes available sooner. You are also scheduled for another appointment with her on Sunday January 20, 2019 at 1:00pm. We recommend weekly counseling at this time. Follow-Up Appointment 03: Physician/Dept/Hyun utpatient ECT Reason for Referraldepression Scheduled Date/[id number] 09:15 [id number] [address] [facility] [id number] Phone [phone] or [phone] CommentsPlease report to registration on the 1 st floor at 0900 am, bring photo ID and proof of insurance Other Clinician Instructions: Other Instructions: Nursing InstructionsMedication and treatment compliance is important in order to stay mentally and physically healthy and to prevent relapse. Encourage patient in improving positive coping skills, emotional regulation skills, and resumption of a more functional daily routine. Develop a coping skills toolbox; make a list of supports, keep on hand Other Clinician InstructionsPatient received two inpatient ECT treatments with improvement in mood and resolution of suicidal thoughts. ECT series was changed from bilateral to bifrontal to reduce memory impairment. Patient was able to identify several coping mechanisms to help her through periods of low mood. The team increased her outpatient ECT to acute series (MWF) with next session scheduled for Wednesday12/26/2018. #Bipolar 1 disorder, currently depressed; Unspecified anxiety disorder - ECT: Session #2 on 12/23/2018 - Continue - Athalia 300mg / 600mg 2x/day (0900 and 1600 on pre-ECT days, 1300 and 2000 on ECT days) for mood stabilization. Monitor lithium levels and kidney function test per outpatient provider - Klonopin 1mg 2x/day as needed for anxiety - Desvenlafaxine Succinate ER 50mg daily for depression Handouts Given: Topic 1resource Electronic Signatures: Sydni Sanchez () (Signed 22-Dec-2018 16:07) Authored: Psychiatric Continuing Care Plan, Appointments, Gold Form - E M Assembler Summary Daphne George (Resident)) (Signed 23-Dec-2018 14:59) Authored: Discharge Orders, Psychiatric Continuing Care Plan, Provider FINAL REVIEW of Orders Lizette Rose (CLIN COOR) (Signed 23-Dec-2018 15:58) Authored: Discharge Orders, Psychiatric Continuing Care Plan, Vascular, Appointments, Other Clinician Instructions Karen Goldsmith (MINERAL SURVEYOR) (Signed 23-Dec-2018 14:26) Authored: Appointments Last Updated: 23-Dec-2018 15:58 by Lizette Rose (CLIN COOR) References: 1. Data Referenced From Admission Risk Screen - Adult" 12/20/2018 6:02 PM Normal [facility] Clinical Event Note-BF multi ple seizure ECT#1on 12-21-2018 Clinical Event Note-BF multiple seizure ECT#1 Event: Topic: BF multiple seizure ECT#1 Details: She was seen earlier this morning. she was very depressed then although she did not have SI after she was transferred here yesterday. no SI/HI/AVH. she fully understood the risk and benefit from BF ECT including potential and permanent memory loss before she signed the ICF. QIDS=20; MOCA=29 She was awake, alert, cooperative, and pleasant. good eye contact. oriented x3. speech was normal. affect was appropriate. mood - ok. denied having SI/HI/AVH during the interview. no delusional thought. I/J were fair. memory was ok. attention and concentration were adequate. Tolerated ECT well no complication Imp: bipolar I depression, severe Plan: continue acute ECT 2-3 times a week. Alanis Cornejo MD. Electronic Signatures: Alanis Cornejo) (Signed 21-Dec-2018 12:54) Authored: Event Last Updated: 21-Dec-2018 12:54 by Alanis Cornejo) [facility] Consult - Psychiatryon 12-21 Consult - Psychiatry Referral Informatio n: Consult requested by (Attending Name): Dr. Avila Reason: ECT evaluation History of Present Illness: Admission Reason: Depression with SI HPI: She is well known to ECT services. she was transferred from [facility] to here for ECT treatments. She had her last ECT treatment was about 2 weeks. She felt very depressed shortly after she was discharged from here. She said she was kept at [facility] for about 6-8 hours for severe depression and SI, and then was discharged home after she told the Doctor at the [facility] that she was not suicidal anymore. Her depression got worse and worse after she was discharged from [facility]. She was admitted to [facility] 4 days ago because of severe depression with SI. she felt better after she was transferred her. No SI since yesterday, but still felt very depressed. she felt ECT was helpful, but she had memory problem. she wanted to try again with BF electrode placement. Past Psychiatric History: long hx of bipolar I disorder with treatment-resistant depression tried a lot of medications over the year started ECT about a month ago with partial response and memory problem. Past Medical/Surgical History: Medical History: GERD (gastroesophageal reflux disease): DIONE (generalized anxiety disorder): PTSD (post-traumatic stress disorder): OCD (obsessive compulsive disorder): Family History: Family History: Mental Illness: no Substance Abuse: no Social History: Smoking Status: never smoker Alcohol Use: denies Drug Use: denies Social History: from suicide very stressful at home. mother just had a stroke. Allergies: No Known Allergies: Intolerances: Dilaudid: Nausea/Vomiting Medications Prior to Admission: Outpatient Meds have not been reviewed. OARRS Review: OARRS checked: no Psychiatric Review of Symptoms: Anxiety: DIONE General Anxiety Disorder: excessive anxiety/worry, difficulty concentrating, irritability, restlesness Depression: anhedonia, appetite decreased, concentration, energy, helpless, hopeless, sleep decreased Delirium: negative Psychosis: negative Tea: negative Review of Systems: Constitutional: NEGATIVE: Fever, Chills, Anorexia, Weight Loss, Malaise Eyes: NEGATIVE: Blurry Vision, Drainage, Diploplia, Redness, Vision Loss/ Change ENMT: NEGATIVE: Nasal Discharge, Nasal Congestion, Ear Pain, Mouth Pain, Throat Pain Respiratory: NEGATIVE: Dry Cough, Productive Cough, Hemoptysis, Wheezing, Shortness of Breath Cardiac: NEGATIVE: Chest Pain, Dyspnea on Exertion, Orthopnea, Palpitations, Syncope; COMMENTS: hx of A-fib Gastrointestinal: NEGATIVE: Nausea, Vomiting, Diarrhea, Constipation, Abdominal Pain Genitourinary: NEGATIVE: Discharge, Dysuria, Flank Pain, Frequency, Hematuria Musculoskeletal: NEGATIVE: Decreased ROM, Pain, Swelling, Stiffness, Weakness Neurological: NEGATIVE: Dizziness, Confusion, Headache, Seizures, Syncope Psychiatric: POSITIVE: Mood Changes, Anxiety, Sleep Changes; NEGATIVE: Hallucinations, Suicidal Ideas Skin: NEGATIVE: Mass, Pain, Pruritus, Rash, Ulcer Endocrine: NEGATIVE: Heat Intolerance, Cold Intolerance, Sweat, Polyuria, Thirst Hematologic/Lymph: NEGATIVE: Anemia, Bruising, Easy Bleeding, Night Sweats, Petechiae Allergic/Immunologic: NEGATIVE: Anaphylaxis, Itchy/ Teary Eyes, Itching, Sneezing, Swelling Objective: Objective Information: interviewed in the group therapy room no distress or abnormal movement She was awake, alert, cooperative, and pleasant. good eye contact. oriented x3. speech was normal. affect was brighter, wearing make-up. mood - ok. denied having SI/HI/AVH. no delusional thought. I/J were fair. memory was ok. attention and concentration were adequate. T PRBPSpO2 [id number]/6998% Date/Time12/21 5:6 5:6 5:3326 5:3326 5:33 Range(36.7C - 37C ) (81 - 81 ) (16 - 16 ) (115 - 115 )/ (69 - 69 ) (98% - 98% ) Highest temp of 37 C was recorded at 12/20 16:05 Orthostatic 12/20 16:05 P BP [id number] / 69 (118 - 118 ) / (69 - 69 ) [id number] / 68 (115 - 115 ) / (68 - 68 ) Pain reported at 12/21 9:15: 4 Weights 12/20 18:09: Weight in kg (Weight (kg)) 77.3 12/20 18:09: Weight in lbs ((lbs)) 170.4 12/20 18:09: BMI (kg/m2) (BMI (kg/m2)) 25.917 Functional Estimates: Estimate of Intelligence: average Estimate of Capacity for Activities of Daily Living: independent Medications: Continuous Medications --------- No continuous medications are active Scheduled Medications --------- 1. Aspirin Chewable: 81 mg Oral Daily 2. Desvenlafaxine Extended Release (NON-Formulary): 50 mg Oral Every 24 Hours 3. Dexamethasone Injectable: 4 mg IntraVenous Push Once 4. Influenza Virus QUADRIVALENT (Inactive) ADULT Vaccine: 0.5 mL IntraMuscular Once 5. Ketorolac Injectable: 30 mg IntraVenous Push Once 6. Athalia Carbonate Extended Release: 600 mg Oral 7. Loratadine: 10 mg Oral Daily 8. Metoprolol Succinate Extended Release: 50 mg Oral Daily 9. Ondansetron Injectable: 4 mg IntraVenous Push Once 10. Pantoprazole: 40 mg Oral Daily PRN Medications --------- 1. Acetaminophen: 650 mg Oral Every 4 Hours 2. clonazePAM (KLONOPIN): 1 mg Oral Every 12 Hours 3. diphenhydrAMINE: 50 mg Oral Every 6 Hours 4. diphenhydrAMINE Injectable: 50 mg IntraMuscular Every 6 Hours 5. Haloperidol Lactate: 5 mg Oral Every 6 Hours 6. Haloperidol Lactate Injectable: 5 mg IntraMuscular Every 6 Hours 7. Ibuprofen: 400 mg Oral Every 6 Hours 8. LORazepam: 1 mg Oral Every 6 Hours 9. LORazepam Injectable: 1 mg IntraMuscular Every 6 Hours 10. Magnesium Hydroxide -Al Hydrox -Simethicone Oral Liquid: 30 mL Oral Every 6 Hours 11. Magnesium Hydroxide Oral Liquid CONCENTRATE: 10 mL Oral Every 24 Hours 12. Melatonin: 3 mg Oral At Bedtime Currently Suspended Medications --------- 1. Athalia Carbonate Extended Release: 300 mg Oral Recent Lab Results: Results: I have reviewed these laboratory results: Lipid Panel [Drawn 06-Feb-2019 06:54:00], Glucose, Fasting [Drawn 21-Dec-2018 06:54:00], Athalia Level, Serum [Drawn 21-Dec-2018 06:54:00], Athalia Level, Serum [Drawn 17-Dec-2018 13:16:00], Drug Screen, Urine [Drawn 17-Dec-2018 14:40:00], Urinalysis [Drawn 17-Dec-2018 14:40:00], Complete Blood Count + Differential [Drawn 17-Dec-2018 13:16:00], Comprehensive Metabolic Panel [Drawn 17-Dec-2018 13:16:00], Ethanol Level [Drawn 17-Dec-2018 13:16:00], Acetylsalicylic Acid Level, Serum [Drawn 17-Dec-2018 13:16:00], Acetaminophen Level, Serum [Drawn 17-Dec-2018 13:16:00], Thyroid Stimulating Hormone, Serum [Drawn 17-Dec-2018 13:16:00]. Assessment/Recommendati ons: Psychiatric Risk Assessment: Violence Risk Assessment: lower socioeconomic class, major mental illness, unemployment Acute Risk of Harm to Others is Considered: minimal Suicide Risk Assessment: , current psychiatric illness, feelings of hopelessness, global insomnia, severe anxiety, suicidal ideations, plans, behaviors, unmarried Protective Factors against Suicide: adherence to treatment, positive family relationships, social support / connectedness, strong therapeutic alliance with provider Risk of Harm to Self is Considered: moderate Assessment: Bipolar I disorder, depressed, treatment-resistant, recurrent, severe DIONE PTSD no contraindication to ECT partially responded to ECT before may benefit from ECT again alternatives including different combinations of mood stabilizers, antipsychotics, and antidepressants were explained to her. she fully understood. pPros and cons from ECT including potential and permanent memory loss were explained to her. she fully understood. She wanted to try ECT again with BF electrode placement. she will be on today's schedule. Alanis Cornejo MD. Electronic Signatures: Alanis Cornejo) (Signed 21-Dec-2018 11:40) Authored: Referral Information, History of Present Illness, Past Psychiatric History, Past Medical/Surgical History, Family History, Social History, Allergies, Medications Prior to Admission, Psychiatric Review of Symptoms, Review of Systems, Objective, Assessment/Recommendati ons, Signature/Cosignature/A ttestation Last Updated: 21-Dec-2018 11:40 by Alanis Cornejo) Normal [facility] Preop Checkliston 12-21-2018 Preop Checklist Preop Checklist: Preop Checklist: NPO [id number] 00:00 Allergy Bandyes Consent Signedpending H&P Completepending Anesthesia Assessment Completedpending Chest X-Ray Performednot ordered SCD's Appliednot applicable Cardiovascular Assessment: Apicalregular Radial Pulsespalpable Pedal Pulsespalpable Extremitieswarm Respiratory Assessment: Respirationsunlabored regular Air Exchangeequal, good Breath Soundsclear Neurological Assessment: Level of Consciousnessalert, oriented Mobilitymoves all extremities Able to Express Selfyes Age Appropriateyes Emotional Statusanxious Language / Communication: Language / CommunicationEnglish Electronic Signatures: Dorinda Alberto (KEVIN) (Signed 21-Dec-2018 03:47) Authored: Preop Checklist Last Updated: 21-Dec-2018 03:47 by Doridna Alberto (KEVIN) Normal [facility] Admission Risk Screen - Adul ton 12-20-2018 Admission Risk Screen - Adult Allergies: Allergies: No Known Allergies: Intolerances: Dilaudid: Nausea/Vomiting Patient Verification: New W ID Band Applied in my Departmentyes Patient Identity Verified Bypatient ID Band FULL Name, include Middle, spelling matches patient's ID used for verificationyes ID Band Matches Patient ID used for Verficationyes ID Band MRN Matches EMR MRNyes Advance Directive: Advance Directive Medicalno Advance Directive Information Givenpatient/family declined Falls Screen: Type of Assessmentadmission Moderate Risk Factorsnursing judgment (specify) Risk for Injury Associated with Fallnone Fall Risk Conclusionmoderate falls risk with low risk for associated injury [place] Safety InterventionsWDL *orient to call system *instruct to call for assistance before getting out of bed *non-slip footwear when patient is out of bed *call [place] in reach *personal items and telephone in reach *physically safe environment (no spills or clutter) *bed in lowest position with wheels locked *appropriate side rails in place *room/bathroom lighting operational, light cord in reach *appropriate signage on door Fall and Injury Risk Interventionseducate pt/family, educate patient/family for risk for injury (fractures and bleeding) Family Violence Screen: Are you or have you been threatened or abused physically, emotionally, or sexually by anyoneno Do you feel UNSAFE going back to the place where you are livingno Clinical assessment: Are there any apparent signs of injuries/behaviors that could be related to abuse/neglectno Social Service Consult for abuse/neglect needed this visitno Functional screen: Functional Screen: In the recent/past 2-4 weeks, patient or family have noticedno issues that require a rehabilitation consult at this time Learning Assessment (Patient): Patient is Able to be Assessed for Learningyes Factors Influencing Readiness to Learndepression Factors that Impact Ability to Learnacuteness of illness Devices/Methods Used to Communicatenone Learning Preferencesgroup instruction; individual instruction; verbal instruction; written material Cultural Considerationsnone Developmental Considerationsnone Jew Considerationsnone Learning Assessment (Other Learner): Other learner availableno Suicide/Depression Screen: During the past month, have you often been bothered by feeling down, depressed or hopelessyes During the past month, have you often had little interest or pleasure in doing thingsyes Have you had any thoughts of harming yourselfyes Have you had any thoughts of harming anyone elseno Adult Nutrition Screen: Have you recently lost weight without tryingno Have you been eating poorly because of a decreased appetiteno MST Score0 RiskMST = 0 or 1 Not at risk. Eating well with little or no weight loss Nutrition Consult needed this visitno Can Patient Participate in Room Serviceyes Patient requires Paper Dishes/Plastic Utensilsyes (sends order) Pain Screen: Pain Scalenumerical 0-10 Pain Scale Educationteaching provided Current Pain Level0 = None Acceptable Pain Level0 = None Expression of Pain (nonverbal)none Chronic Painno Spiritual Screen: Are there any cultural, spiritual, baptist practices/values/needs that are important for us to knowno CAGE: Is this an [place] a Tra[place] Center [place]oni/David [facility]): no Vaccinations: Vaccination - Influenza Vaccination Screen: Is it flu season (between and )Yes Screening for identified contraindications to influenza vaccinationno contraindications identified Influenza vaccine indicatedyes Vaccination - Pneumonia Vaccination Screen: Patient has received a previous pneumonia vaccine:no/unknown... Immunocompetent persons with underlying chronic conditions or reside in retirement care facilitiesnone of these conditions Persons with Functional or Anatomic Asplenianone of these conditions Immunocompromised Personsnone of these conditions Pneumonia vaccine NOT indicated due to:patient DOES NOT have a condition that indicates vaccination Ryan: Skin - Ryan Scale: Ryan: Sensory Perception (response to environment)(4) no impairment Ryan: Moisture (degree skin exposed to moisture)(4) rarely moist Ryan: Activity (ability to walk)(4) walks frequently Ryan: Mobility (amount/control of body movement)(4) no limitation Ryan: Nutrition (quality of food intake)(4) excellent Ryan: Friction and Shear(3) no apparent problem Ryan: Score23 Significant Indicatiors: Significant Indicators: Complete Pressure Injury: Pressure Injury Present on Admissionno Advance Directives: Advance Directive (Medical)no Advance Directive Information Givenpatient/family declined Reason No Advance Directive (Medical)did not wish to discuss adv directive/surrogate Advance Directive (Mental Health)no Advance Directive Information Given (Mental Health)patient/family declined Reason No Advance Directive (Mental Health)did not wish to discuss adv directive/surrogate Strengths (document at least 2 ): Describe Your Strengths: supportive family/friends Describe Your Strengths 2: reach out for help Ritchie-Suicide Severity Rating Scale: Suicidal and Self-injurious Behavior in Past 3 Monthsdenies Suicidal and Self-injurious Behavior in Lifetimeactual suicide attempt Suicidal Ideation (check most severe in past)suicidal intent with specific plan Activating Events (recent)current or pending isolation or feeling alone, recent loss(es) or other significant negative event(s): (legal, financial, relationship, etc) Treatment Historyprevious psychiatric diagnosis and treatments Clinical Status (recent)major depressive episode, mixed affective episode (eg Bipolar), method for suicide available (gun, pills, etc) Protective Factors (recent)identifies reasons for living, responsibility to family or others; living with family, supportive social network or family Suicide Potential Assessmentmedium risk Homicide Risk/Potential for Violence Assessment: Has someone close to you ever told you that you have an anger problem: no Threats of violence and/or actual commission of violence toward others in the past 6 months: no Threats of violence and/or actual commission of violence toward self in the past 6 months: no History of threats of violence and/or actual commission of violence toward others greater than 6 months ago: no Are you angry about being admitted to the hospital: no Do you strike out in anger: no Do you feel like striking out now: no What has helped you in the past to regain control: "talking, thinking" Potential for Violence Assessment: low risk Elopement Assessment: Elopement Risk: yes Trauma History: Victim, Perpetrator or Witness of Abuse: no; No significant physical, sexual, emotional abuse, neglect or trauma history was identified on initial assessment of the patient. This shall not be an active focus of treatment, but will continue to be reassessed throughout admission. Alcohol Screen: Do you sometimes drink beer, wine or other alcoholic beverages within the past 12 months: no or refused (STOP alcohol screen) Alcohol Score Admission Risk Screen: not at risk Addictions/Compulsions: Have you used psychoactive or mood altering substances such as prescription medications, over the counter medications, inhalants, organic substances, illegal substances, and/or street drugs within the past 12 months: no, denies Tobacco Screen: Tobacco Used Within the Past 30 days: no Last Menstrual Period: Impaired Mental Status: no Last Menstrual Period: 12/04/18 Is the Patient Prescribed Contraception: no Electronic Signatures: Nancy Kmuar (RN) (Signed 20-Dec-2018 18:09) Authored: Admission Risk Screens, Vaccinations, Ryan, Pressure Injury, Behavioral Health Screens Last Updated: 20-Dec-2018 18:09 by Nancy Kumar (MARITZA) [facility] Patient Profile - Adult v2on 12-20-2018 Patient Profile - Adult v2 Profile: Initial Info: How to be AddressedKate(1) Spoken Language PreferredEnglish (1) Source of Informationpatient; health record Are you currently using the Personal Electronic Health Record or Symphogenno (1) Stated Reason for Admission"severe depression. I was thinking about plans to commit suicide" [facility]rived Fromspital Employment Statusunemployed(2) Current or Previous Servicenone(1) Patient Belongingsdocumented Patient wanded per unit policy Medications Brought to Hospitalno General Health: Weight in kg77.3 kilogram(s) Weight in chy345.4 pound(s) Height in feet5 feet Height in inches8 inch(es) Height in cm172.7 centimeter(s) BMI (kg/m2)25.917 square meter Weight Methodactual (measured) Scale Typechair Height Methodstated Blood Avoidance/Restrictionsn one(1) Previous Transfusion Reactionno(1) RSP Based Care: How would you like to participate in your care"ECT, groups, talk, think" What is the number one concern for you during this hospitalization"suicida l thoughts" What is the most important thing we can do to support you during this hospitalization"I don't know" Is there anything we need to know to best care for you"No" Substance: Current or Former Substance Use never: Cigarette/Tobacco(1), Alcohol(1) YES: Street Drugs(1) Street Drug/Inhalant/ Medication Use Statuscurrent street drug/inhalant/medicatio n abuse (2) Street Drug/Medication/ Inhalant Typemarijuana(2) Street Drug/Medication/ Inhalant Routesmoking(2) Frequency of Street Drug/Medication/Inhalan t Usemonthly or less (2) Health Mgmt: Symptoms/Conditions Managed at Homebehavioral health Are You Currently Breastfeedingno (3) Behavioral Health Managementmanaged Are You no (3) Relationship/Environ: Primary Source of Support/Comfortparent; friend Lives Withparent(s); sibling(s) Living Arrangementshouse Significant Exposuredust(1) Resource/Environmental Concernsnone [facility]ticipated [facility] Significant IndicatorsComplete Information Review: Allergies, Home Meds and Significant Events have been Reviewed and Verified with Patient/Familyyes ALLERGY, INTOLERANCE, ADVERSE EVENT: Allergies: No Known Allergies: Active Intolerances: Dilaudid: Drug, Nausea/Vomiting, Active Electronic Signatures: Nancy Kumar (MARITZA) (Signed 20-Dec-2018 18:16) Authored: Profile, Additional Information Last Updated: 20-Dec-2018 18:16 by Nancy Kumar (MARITZA) References: 1. Data Referenced From Patient Profile - Adult v2" 12/18/2018 5:30 AM 2. Data Referenced From Psychosocial Assessment - Behavioral" 12/18/2018 12:06 PM 3. Data Referenced From History and Physical - Psychiatry" 12/20/2018 4:52 PM Normal [facility] ACETAMINOPHENon 12-17-2018 Acetaminophen [Mass/Vol] <10.0 10.0 - 30.0 [facility] Comment on above: Performed By: #### A CETA ####[facility] [facility], [place] [phone] ALCOHOLon 12-17-2018 Ethanol [Mass/Vol] mg/dL Normal [facility] Comment on above: Result Comment: FOR MEDICAL USE ONLY. . REF VALUES <10 Performed By: #### A LC ####[address], [place] [phone] CBC AND DIFFERENTIALon 12-17 % AUTOMATED IMMATURE GRAN 0.2 % Normal 0.0 - 0.9 [facility] Comment on above: Result Comment: Perc ent differential counts (%) should be interpreted in the context of the absolute cell counts (cells/L). Performed By: #### C BCDF ####[address], [place] [phone] Basophils (Bld) [#/Vol] 0.04 10*3/uL Normal 0.00 - 0.1 0 [facility] Comment on above: Performed By: #### C BCDF ####[facility] [facility], [place] [phone] Basophils/100 WBC (Bld) 0.4 % Normal 0.0 - 2.[address] [facility] Comment on above: Performed By: #### C BCDF ####[address], [place] [phone] Eosinophils (Bld) [#/Vol] 0.30 10*3/uL Normal 0.00 - 0.70 [facility] Comment on above: Performed By: #### C BCDF ####[address], [place] [id number] Eosinophils/100 WBC (Bld) 3.2 % Normal 0.0 - 6.0 [facility] Comment on above: Performed By: #### C BCDF ####[facility] [facility], [place] [phone] Erythrocyte distribution width (RBC) [Ratio] 12.5 % Normal 11.5 - 14.5 [facility] Comment on above: Performed By: #### C BCDF ####[facility] [facility] [place], [place] [phone] Hematocrit (Bld) [Volume fraction] 38.9 % Normal 36.0 - 46.0 [facility] Comment on above: Performed By: #### C BCDF ####[facility] [facility] [place], [place] [phone] Hemoglobin (Bld) [Mass/Vol] 13.5 g/dL Normal 12.0 - 16.0 [facility] Comment on above: Performed By: #### C BCDF ####[facility] [facility], [place] [phone] Lymphocytes (Bld) [#/Vol] 2.13 10*3/uL Normal 1.20 - 4.80 [facility] Comment on above: Performed By: #### C BCDF ####[place] [id number] [facility], [place] [phone] Lymphocytes/100 WBC (Bld) 22.9 % Normal 13.0 - 44.0 [facility] Comment on above: Performed By: #### C BCDF ####[address], [place] [phone] MCHC (RBC) [Mass/Vol] 34.7 g/dL Normal 32.0 - 36.0 [facility] Comment on above: Performed By: #### C BCDF ####[address], [place] [phone] MCV (RBC) [Entitic vol] 89 fL Normal 80 - 100 [facility] Comment on above: Performed By: #### C BCDF ####[facility] [facility] [place], [place] [phone] Monocytes (Bld) [#/Vol] 0.66 10*3/uL Normal 0.10 - 1.0 0 [facility] Comment on above: Performed By: #### C BCDF ####[facility] [facility] [place], [place] [phone] Monocytes/100 WBC (Bld) 7.1 % Normal 2.0 - 10.[address] [facility] Comment on above: Performed By: #### C BCDF ####[facility] [facility] [place], [place] [phone] Neutrophils (Bld) [#/Vol] 6.16 10*3/uL Normal 1.20 - 7.70 [facility] Comment on above: Performed By: #### C BCDF ####[facility] [facility] [place] [phone] Neutrophils/100 WBC (Bld) 66.2 % Normal 40.0 - 80.0 [facility] Comment on above: Performed By: #### C BCDF ####[facility] [facility], [place] [phone] Platelets (Bld) [#/Vol] 299 10*3/uL Normal 150 - 450 [facility] Comment on above: Performed By: #### C BCDF ####[address], [place] [phone] RBC (Bld) [#/Vol] 4.38 x10E12/L Normal 4.00 - 5.20 [facility] Comment on above: Performed By: #### C BCDF ####[address] [place], [place] [phone] WBC (Bld) [#/Vol] 9.3 10*3/uL Normal 4.4 - 11.3 [facility] Comment on above: Performed By: #### C BCDF ####[facility] [facility] [place], [place] [phone] COMPREHENSIVE PANELon 2018 Albumin [Mass/Vol] 4.3 g/dL Normal 3.4 - 5.0 [facility] Comment on above: Performed By: #### C MP ####[facility] [facility] [place], [place] [phone] ALP [Catalytic activity/Vol] 55 U/L Normal 33 - 110 [facility] Comment on above: Performed By: #### C MP ####[facility] [facility], [place] [phone] ALT [Catalytic activity/Vol] 9 U/L Normal 7 - 45 [facility] Comment on above: Result Comment: Nat ents treated with Sulfasalazine may generate falsely decreased results for ALT. Performed By: #### C MP ####[facility] [facility], [place] [phone] Anion gap [Moles/Vol] 12 mmol/L Normal 10 - 20 [facility] Comment on above: Performed By: #### C MP ####[facility] [facility] [phone] AST [Catalytic activity/Vol] 11 U/L Normal 9 - 39 [facility] Comment on above: Performed By: #### C MP ####[facility] [facility], [place] [phone] Bilirubin [Mass/Vol] 0.4 mg/dL Normal 0.0 - 1.2 [facility] Comment on above: Performed By: #### C MP ####[facility] [facility], [place] [phone] Calcium [Mass/Vol] 9.6 mg/dL Normal 8.6 - 10.3 [facility] Comment on above: Performed By: #### C MP ####[facility] [facility], [place] [phone] Chloride [Moles/Vol] 106 mmol/L Normal 98 - 107 [facility] Comment on above: Performed By: #### C MP ####[facility] [facility], [place] [phone] Creatinine [Mass/Vol] 0.70 mg/dL Normal 0.50 - 1.05 [facility] Comment on above: Performed By: #### C MP ####[facility] [facility], [place] [phone] GFR- AM. >60 Normal >60 [facility] Comment on above: Result Comment: CALC ULATIONS OF ESTIMATED GFR ARE PERFORMED USING THE MDRD STUDY EQUATION FOR THE IDMS-TRACEABLE CREATININE METHODS. CLIN CHEM 2007;53:766-72 Performed By: #### C MP ####[facility] [facility] [place], [place] [phone] GFR-NON AM. >60 Normal >60 [facility] Comment on above: Performed By: #### C MP ####[facility] [facility] [place], [place] [phone] Glucose [Mass/Vol] 82 mg/dL Normal 74 - 99 [facility] Comment on above: Performed By: #### C MP ####[facility] [facility] [place] [phone] HCO3 (Bld) [Moles/Vol] 23 mmol/L Normal 21 - 32 [facility] Comment on above: Performed By: #### C MP ####[facility] [facility] [place], [place] [phone] Potassium [Moles/Vol] 4.0 mmol/L Normal 3.5 - 5.3 [facility] Comment on above: Performed By: #### C MP ####[facility] [facility] [place] [phone] Protein [Mass/Vol] 7.1 g/dL Normal 6.4 - 8.2 [facility] Comment on above: Performed By: #### C MP ####[facility] [facility] [place], [place] [phone] Sodium [Moles/Vol] 137 mmol/L Normal 136 - 145 [facility] Comment on above: Performed By: #### C MP ####[facility] [facility] [place] [phone] Urea nitrogen [Mass/Vol] 7 mg/dL Normal 6 - 23 [facility] Comment on above: Performed By: #### C MP ####[facility] [facility] [place], [place] [phone] Consult - Psychiatryon 12-17 Consult - Psychiatry Referral Informatio n: Consult requested by (Attending Name): Dr. Aranda Reason: Suicidal ideation. History of Present Illness: Admission Reason: Suicidal ideation. HPI: Patient is a 28 year old CF, whom presented to the ED with suicidal ideations. Patient reports a history of experiencing difficulties with depression since her teenage years, and being diagnosed with Bipolar Disorder when she was aged 22. She reports that over the past week, that she has been feeling increasingly depressed, which started after her last ECT treatment a week ago. She reports that over the past week, she has been having thought of wanting to kill herself by taking a lethal dose of Athalia or driving to [place] and jumping off a bridge called [place]. She reports that her killed himself 1 1/2 years ago by jumping of this bridge. She reports having problems with sleep, loss of interests, energy and motivation. She also reports having poor concentration and memory loss from her ECT treatments. She currently denies any homicidal ideations. She reports that over the past week, that she has also been having some manic symptoms alternating with her depression in terms of her having episodes of increased energy and increase in goal directed activities. She reports a history of having overt manic symptoms in the past but reports that she does not recall when she last experienced a manic episode. She reports a history of having problems with insomnia, racing thoughts, increased energy, hypertalkatviness and psychotic symptoms when she experiences a manic episode. She currently denies any auditory or visual hallucinations. She also denies any paranoid delusional thinking or delusions or ideas of reference. She reports having some difficulties with worrying but denies any anxiety attacks. Past Psychiatric History: Patient reports a history of multiple inpatient psychiatric admission. She reports that she was discharged from [facility] about a week ago. She reports a history of 2 suicide attempts in the past by attempting to hang herself and overdose on pills. She reports a history of receiving ECT treatment and last completed a course of ECT treatment about a week ago. Past Medical/Surgical History: Medical History: History of anorexia nervosa: Paroxysmal A-fib: GERD (gastroesophageal reflux disease): MTHFR mutation (methylenetetrahydrofol ate reductase): History of migraine headaches: Painful leg and moving toes syndrome: History of seizure disorder: Description: until 15 year old no medications >10 years Sleep-related hallucinations: Sleep paralysis: Bipolar disorder: Panic attacks: DIONE (generalized anxiety disorder): PTSD (post-traumatic stress disorder): OCD (obsessive compulsive disorder): ADHD: Surg History: H/O sinus surgery: History of surgery: Description: corrective jaw surgery Family History: Family History: Family History: reviewed and not pertinent to presenting problem Family History: Mother- depression. Social History: Social History: denies smoking, alcohol and drug use Social History: Patient is currently . She has no children. She currently resides with her parents and 2 brothers. She has a Bachelors degree in [employer] She denies any history of legal problems. Occupation: On disability. Allergies: No Known Allergies: Intolerances: Dilaudid: Nausea/Vomiting Medications Prior to Admission: Admission Medication Reconciliation has not been completed for this patient. OARRS Review: OARRS checked: no Review of Systems: Constitutional: NEGATIVE: Fever, Chills, Anorexia, Weight Loss, Malaise Eyes: NEGATIVE: Blurry Vision, Drainage, Diploplia, Redness, Vision Loss/ Change ENMT: NEGATIVE: Nasal Discharge, Nasal Congestion, Ear Pain, Mouth Pain, Throat Pain Respiratory: NEGATIVE: Dry Cough, Productive Cough, Hemoptysis, Wheezing, Shortness of Breath Cardiac: NEGATIVE: Chest Pain, Dyspnea on Exertion, Orthopnea, Palpitations, Syncope Gastrointestinal: NEGATIVE: Nausea, Vomiting, Diarrhea, Constipation, Abdominal Pain Genitourinary: NEGATIVE: Discharge, Dysuria, Flank Pain, Frequency, Hematuria Musculoskeletal: NEGATIVE: Decreased ROM, Pain, Swelling, Stiffness, Weakness Neurological: NEGATIVE: Dizziness, Confusion, Headache, Seizures, Syncope Psychiatric: POSITIVE: Mood Changes, Anxiety, Sleep Changes, Suicidal Ideas; NEGATIVE: Hallucinations Skin: NEGATIVE: Mass, Pain, Pruritus, Rash, Ulcer Endocrine: NEGATIVE: Heat Intolerance, Cold Intolerance, Sweat, Polyuria, Thirst Hematologic/Lymph: NEGATIVE: Anemia, Bruising, Easy Bleeding, Night Sweats, Petechiae Allergic/Immunologic: NEGATIVE: Anaphylaxis, Itchy/ Teary Eyes, Itching, Sneezing, Swelling Objective: Objective Information: T PRBPSpO2 [id number]/7598% Date/Time2 12:592/2 17:002/2 17:002/2 17:002/2 17:00 Range(37.1C - 37.1C ) (82 - 85 ) (16 - 18 ) (108 - 112 )/ (71 - 75 ) (98% - 100% ) Highest temp of 37.1 C was recorded at 12/17 12:59 Weights 12/17 12:59: Weight in lbs ((lbs)) 100 12/17 12:59: Weight in kg (Weight (kg)) 45.3 12/17 12:59: BMI (kg/m2) (BMI (kg/m2)) 15.188 Mental Status Exam: General: Appropriately groomed and dressed. Appearance: Appears stated age. Attitude: Calm, cooperative. Behavior: Appropriate eye contact. Motor Activity: No agitation or retardation. No EPS/TD. Speech: Slow rate but of clear articulation. Mood: Depressed. Affect: Constricted. Thought Process: Organized, linear, goal directed. Associations are logical. Thought Content: No delusional thinking was elicited currently. Patient reports having suicidal ideations. She denies any homicidal ideations. Thought Perception: Does not endorse auditory or visual hallucinations, does not appear to be responding to hallucinatory stimuli. Cognition: Alert, oriented x3. No deficits noted. Adequate fund of knowledge. No deficit in recent and remote memory. No deficits in attention, concentration or language. Insight: Good, as patient recognizes symptoms of illness and need for recommended treatments. Judgment: Can make reasonable decisions about ordinary activities of daily living and necessary medical care recommendations. Functional Estimates: Estimate of Intelligence: average Estimate of Capacity for Activities of Daily Living: independent Recent Lab Results: Results: I have reviewed these laboratory results: Drug Screen, Urine 17-Dec-2018 14:40:00 ResultValue Comments. SEE BELOW Drug screen results are presumptive and should not be used to assess compliance with prescribed medication. Contact the performing [facility] laboratory to add-on definitive confirmatory testing if clinically indicated. . Toxicology scre Amphetamine Screen, Urine PRESUMPTIVE NEGATIVE CUTOFF LEVEL: 500 NG/ML Cross-reactivity has been reported with high concentrations of the following drugs: buproprion, chloroquine, chlorpromazine, ephedrine, mephentermine, fenfluramine, phentermine, phenylpropanolamine Barbiturate Screen, Urine PRESUMPTIVE NEGATIVE PRESUMPTIVE NEGATIVE CUTOFF LEVEL: 200 NG/ML Benzodiazepine Screen, Urine PRESUMPTIVE NEGATIVE PRESUMPTIVE NEGATIVE CUTOFF LEVEL: 200 NG/ML Cannabinoid Screen, Urine PRESUMPTIVE NEGATIVE PRESUMPTIVE NEGATIVE CUTOFF LEVEL: 50 NG/ML Cocaine Metabolite Screen, Urine PRESUMPTIVE NEGATIVE PRESUMPTIVE NEGATIVE CUTOFF LEVEL: 150 NG/ML Methadone Screen, Urine PRESUMPTIVE NEGATIVE CUTOFF LEVEL: 150 NG/ML The metabolite I-dvzry-qlpukqvnkqvfjm (LAAM) is not detected by this method in concentrations that would be found in the urine of patients on LAAM therapy. Opiate Screen, Urine PRESUMPTIVE NEGATIVE CUTOFF LEVEL: 300 NG/ML The opiate screen does not detect fentanyl, meperidine, or tramadol. Oxycodone is not consistently detected (refer to Oxycodone Screen, Urine result). Oxycodone Screen, Urine (item) PRESUMPTIVE NEGATIVE CUTOFF LEVEL: 100 NG/ML This test will accurately detect both oxycodone and oxymorphone. PCP Screen, Urine PRESUMPTIVE NEGATIVE CUTOFF LEVEL: 25 NG/ML Cross-reactivity has been reported with dextromethorphan. Urinalysis 17-Dec-2018 14:40:00 ResultValue Color, Urine YELLOW Reference Range: STRAW,YELLOW Appearance, Urine CLEAR Specific Wilson, Urine 1.008 pH, Urine 7.0 Protein, Urine NEGATIVE Glucose, Urine NEGATIVE Blood, Urine NEGATIVE Ketones, Urine NEGATIVE Bilirubin, Urine NEGATIVE Urobilinogen, Urine <2.0 Nitrite, Urine NEGATIVE Leukocyte Esterase, Urine NEGATIVE Complete Blood Count + Differential 17-Dec-2018 13:16:00 ResultValue White Blood Cell Count 9.3 Red Blood Cell Count 4.38 HGB 13.5 HCT 38.9 MCV 89 MCHC 34.7 PLT 299 RDW-CV 12.5 Neutrophil % 66.2 Immature Granulocytes % 0.2 Lymphocyte % 22.9 Monocyte % 7.1 Eosinophil % 3.2 Basophil % 0.4 Neutrophil Count 6.16 Lymphocyte Count 2.13 Monocyte Count 0.66 Eosinophil Count 0.30 Basophil Count 0.04 Comprehensive Metabolic Panel 17-Dec-2018 13:16:00 ResultValue Glucose, Serum 82 NA 137 K 4.0 CL 106 Bicarbonate, Serum 23 Anion Gap, Serum 12 BUN 7 CREAT 0.70 GFR-Non >60 GFR- >60 Calcium, Serum 9.6 ALB 4.3 ALKP 55 T Pro 7.1 T Bili 0.4 Alanine Aminotransferase, Serum 9 Aspartate Transaminase, Serum 11 Athalia Level, Serum 17-Dec-2018 13:16:00 ResultValue Athalia Level, Serum 0.75 Ethanol Level 17-Dec-2018 13:16:00 ResultValue Ethanol Level <10 Acetylsalicylic Acid Level, Serum 17-Dec-2018 13:16:00 ResultValue Acetylsalicylic Acid Level, Serum <3 A Acetaminophen Level, Serum 17-Dec-2018 13:16:00 ResultValue Acetaminophen Level, Serum <10.0 A Thyroid Stimulating Hormone, Serum 17-Dec-2018 13:16:00 ResultValue Thyroid Stimulating Hormone, Serum 1.39 Assessment/Recommendati ons: Psychiatric Risk Assessment: Violence Risk Assessment: major mental illness, unemployment Acute Risk of Harm to Others is Considered: minimal Suicide Risk Assessment: current psychiatric illness, prior suicide attempt, suicidal ideations, plans, behaviors, unmarried Protective Factors against Suicide: positive family relationships Risk of Harm to Self is Considered: severe Assessment: 1. Bipolar I disorder, most recent episode depressed. 2. Unspecified anxiety disorder. Recommend inpatient psychiatric admission for further treatment and stabilization of her current symptoms. Electronic Signatures: Corbin Muniz) (Signed 17-Dec-2018 20:11) Authored: Referral Information, History of Present Illness, Past Psychiatric History, Past Medical/Surgical History, Family History, Social History, Allergies, Medications Prior to Admission, Review of Systems, Objective, Assessment/Recommendati ons, Signature/Cosignature/A ttestation Last Updated: 17-Dec-2018 20:11 by Corbin Muniz) Normal [facility] DRUG SCREEN,URINEon 12-17-19 19 AMPHETAMINE SCREEN,U Negative Normal NEGATIVE [facility] Comment on above: Result Comment: CUTO FF LEVEL: 500 NG/ML Cross-reactivity has been reported with high concentrations of the following drugs: buproprion, chloroquine, chlorpromazine, ephedrine, mephentermine, fenfluramine, phentermine, phenylpropanolamine, pseudoephedrine, and propranolol. Performed By: #### D RUG3 ####[facility] [place], [place] [phone] BARBITURATES SCREEN,U Negative Normal NEGATIVE [facility] Comment on above: Result Comment: CUTO FF LEVEL: 200 NG/ML Performed By: #### D RUG3 ####[facility] [place], [place] [phone] BENZODIAZEPINES SCREEN,U Negative Normal NEGATIVE [facility] Comment on above: Result Comment: CUTO FF LEVEL: 200 NG/ML Performed By: #### D RUG3 ####[facility] [facility], [place] [phone] CANNABINOIDS SCREEN,U Negative Normal NEGATIVE [facility] Comment on above: Result Comment: CUTO FF LEVEL: 50 NG/ML Performed By: #### D RUG3 ####[facility] [facility], [place] [phone] COCAINE METABOLITE SCREEN,U Negative Normal NEGATIVE [facility] Comment on above: Result Comment: CUTO FF LEVEL: 150 NG/ML Performed By: #### D RUG3 ####[facility] [facility], [place] [phone] DRUG SCREEN COMMENT SEE BELOW Normal [facility] Comment on above: Result Comment: Drug screen results are presumptive and should not be used to assess compliance with prescribed medication. Contact the performing [facility] laboratory to add-on definitive confirmatory testing if clinically indicated. . Toxicology screening results are reported qualitatively. The concentration must be greater than or equal to the cutoff to be reported as positive. The concentration at which the screening test can detect an individual drug or metabolite varies. The absence of expected drug(s) and/or drug metabolite(s) may indicate non-compliance, inappropriate timing of specimen collection relative to drug administration, poor drug absorption, diluted/adulterated urine, or limitations of testing. For medical purposes only; not valid for forensic use. . Interpretive questions should be directed to the laboratory medical directors. Performed By: #### D RUG3 ####[facility] [facility], [place] [phone] METHADONE SCREEN,U Negative Normal NEGATIVE [facility] Comment on above: Result Comment: CUTO FF LEVEL: 150 NG/ML The metabolite N-vjerf-afipzfnxdwsncm (LAAM) is not detected by this method in concentrations that would be found in the urine of patients on LAAM therapy. Performed By: #### D RUG3 ####[facility] [facility] [place] [phone] OPIATES SCREEN,U Negative Normal NEGATIVE [facility] Comment on above: Result Comment: CUTO FF LEVEL: 300 NG/ML The opiate screen does not detect fentanyl, meperidine, or tramadol. Oxycodone is not consistently detected (refer to Oxycodone Screen, Urine result). Performed By: #### D RUG3 ####[facility] [facility], [place] [phone] OXYCODONE SCREEN,U Negative Normal NEGATIVE [facility] Comment on above: Result Comment: CUTO FF LEVEL: 100 NG/ML This test will accurately detect both oxycodone and oxymorphone. Performed By: #### D RUG3 ####[address], [place] [id number] PCP SCREEN,U Negative Normal NEGATIVE [facility] Comment on above: Result Comment: CUTO FF LEVEL: 25 NG/ML Cross-reactivity has been reported with dextromethorphan. Performed By: #### D RUG3 ####[address], [place] [id number] LITHIUMon 12-17-2018 Athalia [Moles/Vol] 0.75 mmol/L Normal 0.60 - 1.20 [facility] Comment on above: Performed By: #### L ITH ####[address], [place] [id number] Provider Note - ED v2on Provider Note - ED v2 Provider Note - ED v2: Chart Review: ED NOTES ED NOTES: 28 year old female coming in for suicidal thoughts. She states she was recently admitted for depression and bipolar and released 1 week ago. She states she is noticing more manic and swings to depression happening now. She states she has thought more seriously about suicide over the last few days. She states she has counted her lithium pills to see if she had enough for a toxic dose and states she did not have enough pills. She states she has recently solidified her thought of going to [place] and jumping [place] as her did about 2 years ago. She states she has been thinking a lot about her lately and states he has been in her dreams and thoughts constantly. She states she has been taking all of her medications as prescribed. She states she spoke with her counselor yesterday and was told that she should go to the ED and be admitted. She denies any other complaints today. Family HX: Denies any significant/pertinent family history. Social Hx: Denies ETOH or drug use. Review of systems: Gen.: No weight loss, fatigue, anorexia, insomnia, fever. Eyes: No vision loss, double vision, drainage, eye pain. ENT: No pharyngitis, dry mouth. Cardiac: No chest pain, palpitations, syncope, near syncope. Pulmonary: No shortness of breath, cough, hemoptysis. Heme/lymph: No swollen glands, fever, bleeding. GI: No abdominal pain, change in bowel habits, melena, hematemesis, hematochezia, nausea, vomiting, diarrhea. : No discharge, dysuria, frequency, urgency, hematuria. Musculoskeletal: No limb pain, joint pain, joint swelling. Skin: No rashes. Psych: Positive depression, anxiety, suicidality, no homicidality. Review of systems is otherwise negative unless stated above or in history of present illness. Physical Exam: Appearance: Alert, oriented , cooperative, in no acute distress. Well nourished & well hydrated. Skin: Intact, dry skin, no lesions, rash, petechiae or purpura. Eyes: PERRLA, EOMs intact, Conjunctiva pink with no redness or exudates. Cornea & anterior chamber are clear, Eyelids without lesions. No scleral icterus. ENT: Hearing grossly intact. External auditory canals patent, tympanic membranes intact with visible landmarks. Nares patent, mucus membranes moist. Dentition without lesions. Pharynx clear, uvula midline. Neck: Supple, without meningismus. Thyroid not palpable. Trachea at midline. No lymphadenopathy. Pulmonary: Clear bilaterally with good chest wall excursion. No rales, rhonchi or wheezing. No accessory muscle use or stridor. Cardiac: Normal S1, S2 without murmur, rub, gallop or extrasystole. No JVD, Carotids without bruits. Abdomen: Soft, nontender, active bowel sounds. No palpable organomegaly. No rebound or guarding. No CVA tenderness. Genitourinary: Exam deferred. Musculoskeletal: Full range of motion. No pain, edema, or deformity. Pulses full and equal. No cyanosis, clubbing, or edema. Neurological: normal sensation, no weakness, no focal findings identified. Psychiatric: Patient with flat affect and appears depressed HISTORY OF PRESENTING ILLNESS LILY is a 28 year old Female and was seen by me at 17-Dec-2018 13:01 for a chief complaint of suicidal thoughts . Other complaints include: SI with plans(1). Triage Information: Most recent Vital Sign Value Date Temp (F): 98.8 12-17-2018 12:59 Temp (C): 37.1 12-17-2018 12:59 Heart Rate (beats/min): 85 12-17-2018 12:59 Respirations (breaths/min): 18 12-17-2018 12:59 SpO2 (%): 100 12-17-2018 12:59 BP Systolic (mm Hg): 112 12-17-2018 12:59 BP Diastolic (mm Hg): 71 12-17-2018 12:59 PAST MEDICAL HISTORY ATTESTATION: I have reviewed and confirmed nurse's/medic's notes for patient's medications, allergies, medical history, and surgical history ALLERGIES/INTOLERANCES: Allergy Allergen: No Known Allergies Type: Reaction: Intolerance Allergen: Dilaudid Type: Drug Reaction: Nausea/Vomiting HEALTH HISTORY: Medical History Name:ADHD Code:F90.9 Name:OCD (obsessive compulsive disorder) Code:F42.9 Name:PTSD (post-traumatic stress disorder) Code:F43.10 Name:DIONE (generalized anxiety disorder) Code:F41.1 Name:Panic attacks Code:F41.0 Name:Bipolar disorder Code:F31.9 Name:Sleep paralysis Code:G47.8 Name:Sleep-related hallucinations Code:R44.1 Name:History of seizure disorder Code:Z86.69 Name:Painful leg and moving toes syndrome Code:Q87.89 Name:History of migraine headaches Code:Z86.69 Name:MTHFR mutation (methylenetetrahydrofol ate reductase) Code:E72.12 Name:GERD (gastroesophageal reflux disease) Code:K21.9 Name:Paroxysmal A-fib Code:I48.0 Name:History of anorexia nervosa Code:Z86.59 OUTPATIENT MEDICATIONS: Home Medications Review Status for Reconciliation: Incomplete Med Status: Patient Currently Takes Medications Drug Name: Pristiq 50 mg oral tablet, extended release Instructions: 1 tab(s) orally once a day (in the morning) for mood Drug Name: ZyrTEC 10 mg oral tablet Instructions: 1 tab(s) orally once a day for allergies Drug Name: lithium 300 mg oral tablet, extended release Instructions: 1 tab(s) orally once a day (in the morning) for mood Drug Name: KlonoPIN 1 mg oral tablet Instructions: 1 tab(s) orally 2 times a day, As Needed for anxiety Drug Name: metoprolol succinate 50 mg oral tablet, extended release Instructions: 1 tab(s) orally once a day (in the evening) for afib Drug Name: azelastine 137 mcg/inh (0.1%) nasal spray Instructions: 1 spray(s) nasal 2 times a day for allergies Drug Name: Flonase 50 mcg/inh nasal spray Instructions: 1 spray(s) nasal 2 times a day for allergies Drug Name: Protonix 40 mg oral delayed release tablet Instructions: 1 tab(s) orally once a day afternoon for reflux Drug Name: Adult Aspirin 81 mg oral tablet, chewable Instructions: 1 tab(s) chewed once a day for MTHFR gene Drug Name: lithium carbonate extended release Instructions: 600 milligram(s) orally once a day (AT BEDTIME) SIGNIFICANT EVENTS: No documented data. 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 SEE BELOW Drug screen results are presumptive and should not be used to assess compliance with prescribed medication. Contact the performing [facility] laboratory to add-on definitive confirmatory testing if clinically indicated. . Toxicology scre Amphetamine Screen, Urine PRESUMPTIVE NEGATIVE CUTOFF LEVEL: 500 NG/ML Cross-reactivity has been reported with high concentrations of the following drugs: buproprion, chloroquine, chlorpromazine, ephedrine, mephentermine, fenfluramine, phentermine, phenylpropanolamine Barbiturate Screen, Urine PRESUMPTIVE NEGATIVE PRESUMPTIVE NEGATIVE CUTOFF LEVEL: 200 NG/ML Benzodiazepine Screen, Urine PRESUMPTIVE NEGATIVE PRESUMPTIVE NEGATIVE CUTOFF LEVEL: 200 NG/ML Cannabinoid Screen, Urine PRESUMPTIVE NEGATIVE PRESUMPTIVE NEGATIVE CUTOFF LEVEL: 50 NG/ML Cocaine Metabolite Screen, Urine PRESUMPTIVE NEGATIVE PRESUMPTIVE NEGATIVE CUTOFF LEVEL: 150 NG/ML Methadone Screen, Urine PRESUMPTIVE NEGATIVE CUTOFF LEVEL: 150 NG/ML The metabolite U-qxxia-ewueqekyaoyvao (LAAM) is not detected by this method in concentrations that would be found in the urine of patients on LAAM therapy. Opiate Screen, Urine PRESUMPTIVE NEGATIVE CUTOFF LEVEL: 300 NG/ML The opiate screen does not detect fentanyl, meperidine, or tramadol. Oxycodone is not consistently detected (refer to Oxycodone Screen, Urine result). Oxycodone Screen, Urine (item) PRESUMPTIVE NEGATIVE CUTOFF LEVEL: 100 NG/ML This test will accurately detect both oxycodone and oxymorphone. PCP Screen, Urine PRESUMPTIVE NEGATIVE CUTOFF LEVEL: 25 NG/ML Cross-reactivity has been reported with dextromethorphan. Urinalysis 17-Dec-2018 14:40:00 ResultValue Color, Urine YELLOW Reference Range: STRAW,YELLOW Appearance, Urine CLEAR Specific Wilson, Urine 1.008 pH, Urine 7.0 Protein, Urine NEGATIVE Glucose, Urine NEGATIVE Blood, Urine NEGATIVE Ketones, Urine NEGATIVE Bilirubin, Urine NEGATIVE Urobilinogen, Urine <2.0 Nitrite, Urine NEGATIVE Leukocyte Esterase, Urine NEGATIVE Complete Blood Count + Differential 17-Dec-2018 13:16:00 ResultValue White Blood Cell Count 9.3 Red Blood Cell Count 4.38 HGB 13.5 HCT 38.9 MCV 89 MCHC 34.7 PLT 299 RDW-CV 12.5 Neutrophil % 66.2 Immature Granulocytes % 0.2 Lymphocyte % 22.9 Monocyte % 7.1 Eosinophil % 3.2 Basophil % 0.4 Neutrophil Count 6.16 Lymphocyte Count 2.13 Monocyte Count 0.66 Eosinophil Count 0.30 Basophil Count 0.04 Comprehensive Metabolic Panel 17-Dec-2018 13:16:00 ResultValue Glucose, Serum 82 NA 137 K 4.0 CL 106 Bicarbonate, Serum 23 Anion Gap, Serum 12 BUN 7 CREAT 0.70 GFR-Non >60 GFR- >60 Calcium, Serum 9.6 ALB 4.3 ALKP 55 T Pro 7.1 T Bili 0.4 Alanine Aminotransferase, Serum 9 Aspartate Transaminase, Serum 11 Athalia Level, Serum 17-Dec-2018 13:16:00 ResultValue Athalia Level, Serum 0.75 Ethanol Level 17-Dec-2018 13:16:00 ResultValue Ethanol Level <10 Acetylsalicylic Acid Level, Serum 17-Dec-2018 13:16:00 ResultValue Acetylsalicylic Acid Level, Serum <3 A Acetaminophen Level, Serum 17-Dec-2018 13:16:00 ResultValue Acetaminophen Level, Serum <10.0 A Thyroid Stimulating Hormone, Serum 17-Dec-2018 13:16:00 ResultValue Thyroid Stimulating Hormone, Serum 1.39 VITAL SIGNS: T PRBP SpO2O2(LPM) %FiO2 Method 17-Dec-2018 12:59:[id number]/71 100 room air, no respiratory support EKG INTERPRETATION: EKG Date/Time: 17-Dec-2018 13:49 Rate: 69 Interpretation: normal sinus rhythm Prior EKG Status: the EKG is unchanged from prior EKG MEDICAL DECISION MAKING/ED COURSE MDM/ED COURSE: Patient is medically cleared for EPAT evaluation. Differential Diagnosis: (suicidal ideation, bipolar, manic phase, depression) Discussed Findings with: patient Data Reviewed: vital signs and nurses notes Conducted Detailed Discussion with Patient and/or Guardian Regarding: lab results CLINICAL IMPRESSION Diagnosis/Annotation: ED Dx Name:Suicidal ideation Code:R45.851 Dispostion: transferred Condition on Disposition: stable ATTESTATION Attestation: This is a shared visit. I have reviewed the LIPs encounter note, approve the LIPs documentation and provide the following additional information from my personal encounter. Shared Visit Documentation: See comments/additional findings below Comments/Additional Findings: The 28-year-old female that presents with suicidal ideation with a known history of major depression and bipolar disorder. Patient was medically cleared and evaluated by emergency psychiatric assessment team is determined the patient would benefit from inpatient psychiatric treatment. I am in agreement with the disposition by the nurse practitioner CRITICAL CARE TIME Is this a critically ill patient: no Electronic Signatures: Abhilash Aranda) (Signed 19-Dec-2018 09:57) Authored: Provider Note - ED v2 Co-Signer: Provider Note - ED v2 Nette Boone (ASBESTOS ABATEMENT WORKER-FLORAL ARRANGER) (Signed 17-Dec-2018 20:23) Authored: Provider Note - ED v2 Last Updated: 19-Dec-2018 09:57 by Abhilash Aranda) References: 1. Data Referenced From "Triage - ED" 12/17/2018 12:59 PM Normal [facility] Risk Screen - Adult Emergenc yon 12-17-2018 Risk Screen - Adult Emergency Preferred Language: Preferred Language: Preferred Language for Discussing Health Care (patient/designee)Shashi rahman Advanced Directives: Advance Directive Medicalno Family Violence Adult: Abuse Screen: Are you or have you been threatened or abused physically, emotionally, or sexually by anyoneno Suicide / Depression: Suicide/Depression Screen: During the past month, have you often been bothered by feeling down, depressed or hopelessyes During the past month, have you often had little interest or pleasure in doing thingsyes Have you had any thoughts of harming yourselfyes (1) Have you had any thoughts of harming anyone elseno (1) Learning Assessment (Patient): Learning Assessment (Patient): Patient is Able to be Assessed for Learningyes Factors Influencing Readiness to Learndepression; motivation to learn Factors that Impact Ability to Learnnone Devices/Methods Used to Communicatenone Learning Preferenceswritten material; verbal instruction Cultural Considerationsnone Developmental Considerationsnone Jew Considerationsnone Learning Assessment (Other Learner): Learning Assessment (Other Learner): Other learner availableno Fall Risk Adult: Falls Risk: Altered Mobilitynone Change in Mental Statusno Relevant Medical History / Diagnosisnone Fall Historynone Altered Eliminationno Medications that Might Alter: equilibrium, cognitive judgement or severity of injurynone Sensory Deficitno UNABLE or UNWILLING to Follow Directionsno Patient Identified as a Falls Riskno Provide Rationale not identified as Falls Riskno risk factors identified Pressure Injury: Pressure Injury Present on Admissionno Respiratory / Cough /TB: ED / TB / Cough / Respiratory Screen: Do you have a coughno Smoking/Social History (Required age 13 or older): Smoking Status: never smoker Alcohol Use: denies Drug Use: occasionally marijuana Admission Risk Screen: Significant IndicatorsComplete CAGE: CAGE: Is this an injured patient at a Tra[place] Center [place]): no Electronic Signatures: Chetan Schneider (MARITZA) (Signed 17-Dec-2018 13:03) Authored: Preferred Language, Advanced Directives, Family Violence Adult, Suicide / Depression, Learning Assessment (Patient), Learning Assessment (Other Learner), Fall Risk Adult, Pressure Injury, Respiratory / Cough /TB, Smoking/Social History (Required age 13 or older), CAGE Last Updated: 17-Dec-2018 13:03 by Chetan Schneider (MARITZA) References: 1. Data Referenced From "Triage - ED" 12/17/2018 12:59 PM Normal [facility] SALICYLATEon 12-17-2018 SALICYLATE <3 4 - 20 [facility] Comment on above: Performed By: #### S ALIC ####[facility] [place], [place] [id number] TSHon 12-17-2018 TSH Qn 1.39 m[IU]/L Normal 0.44 - 3.98 [facility] Comment on above: Result Comment: TSH testing is performed using different testing methodology at [facility] than at other [facility]. Direct result comparisons should only be made within the same method. Performed By: #### T SH2 ####[facility] [place], [place] [id number] Triage - EDon 12-17-2018 Triage - ED Quick Triage: The patient and/or guardian verbally acknowledges placement for services into the following (when Urgent Care Service hours are operating):emergency department Are You no Are You Currently Breastfeedingno Chart Review: CHIEF COMPLAINT LILY QUIROZ is a Female patient with a chief complaint of suicidal thoughts. Onset of the Complaint: 13-Dec-2018 Other Complaints: SI with plans Triage Date/Time: 17-Dec-2018 12:59 Pain Rating (0-10): Rest: 0 Vital Signs: Temperature: 98.8F ( 37.1C) taken temporal Blood Pressure: 112/71 Mean: Heart Rate: 85 Respiratory Rate: 18 Pulse Oximetry: 100% on room air, no respiratory support. Height: 5 feet 8.00 inches. 172.7 CM Weight: 100.0 pounds. Calculated 45.3 kg. (stated) Calculated BMI (kg/m2): 15.188 Calculated BSA (m2) 1.47 Cough lasting greater than 3 weeks: no Travel outside of [place]: no Allergies: no Patient has suicidal thoughts: yes Patient has homicidal thoughts: no DAWOOD: 3V Symptoms Are POSITIVE For: depression, suicidal thoughts and withdrawn. Symptoms Are Negative For: agitated, anorexia, confusion, fatigue and hallucinations. PAIN Pain Scale Used: VAS Pain ratin ARRIVAL INFORMATION Means of Arrival: Ambulatory Mode of Arrival: private vehicle Arrival From: home Accompanied By: self Language: Spoken Language Preferred: Syriac Reading Language Preferred: Syriac Manager People Requested: no change management lead was requested PRIMARY ASSESSMENT LILY QUIROZ's primary assessment is Within Normal Limits. The airway is open and patent. Breathing spontaneous and unlabored with clear breath sounds bilaterally. Circulation is normal with good peripheral pulses. Skin is warm and dry and color is normal for race. PAST MEDICAL HISTORY Immunization History: Last Known Tetanus Immunization: Less than 5 years TRAVEL HISTORY Travel Exposure History: NO travel to International locations in the past 30 days Past Medical History: Past Medical History Reviewedyes Electronic Signatures: Chetan Schneider (RN) (Signed 17-Dec-2018 13:01) Authored: Triage, Past Medical History Last Updated: 17-Dec-2018 13:01 by Chetan Schneider (MARITZA) Normal [facility] URINALYSISon 12-17-2018 Appearance (U) CLEAR Normal CLEAR [facility] Comment on above: Performed By: #### U A ####[address], [place] [id number] Bilirubin (U) [Mass/Vol] Negative Normal NEGATIVE [facility] Comment on above: Performed By: #### U A ####[address], [place] [id number] BLOOD Negative Normal NEGATIVE [facility] Comment on above: Performed By: #### U A ####[address], [place] [id number] Color (U) YELLOW Normal STRAW,YELLOW [facility] Comment on above: Performed By: #### U A ####[place] [id number] [facility], [place] [id number] Glucose [Mass/Vol] Negative Normal NEGATIVE [facility] Comment on above: Performed By: #### U A ####[place] [id number] [facility], [place] [id number] Ketones Ql (U) Negative Normal NEGATIVE [facility] Comment on above: Performed By: #### U A ####[place] [id number] [facility], [place] [id number] Leukocyte esterase Test strip Ql (U) Negative Normal NEGATIVE [facility] Comment on above: Performed By: #### U A ####[place] [id number] [facility], [place] [phone] Nitrite Ql (U) Negative Normal NEGATIVE [facility] Comment on above: Performed By: #### U A ####[facility] [facility], [place] [phone] pH (Bld) 7.0 Normal 5.0 - 8.0 [facility] Comment on above: Performed By: #### U A ####[facility] [facility], [place] [phone] Protein (U) [Mass/Vol] Negative Normal NEGATIVE [facility] Comment on above: Performed By: #### U A ####[facility] [facility], [place] [phone] Specific gravity (U) [Rel density] 1.008 Normal 1.005 - 1.035 [facility] Comment on above: Performed By: #### U A ####[facility] [facility], [place] [phone] Urobilinogen Qn (U) <2.0 Normal 0.0 - 1.9 [facility] Comment on above: Performed By: #### U A ####[facility] [facility], [place] [phone] Daily Progress Note - Psychi atryon 12-06-2018 Daily Progress Note - Psychiatry Subjective Data: LILY QUIROZ is a 28 year old Female who is Hospital Day # 4. Feels good; ready to go home today. Had a headache yesterday but resolved by this morning. States that her feelings of sadness are much better because she's here. Last had thoughts of wanting to hurt herself on Wednesday (day of presentation). Agreeable to twice weekly ECT. Understands that she needs increased support around the anniversary of her late . Finds a lot of support in her 's family; currently doing 2 projects for them that is hard because the projects remind her of her but it also feels good to do something for someone else. States she gets ASA for her MTHFR gene diagnosis, not for afib. Additional Information: Received Clonazepam PO 1mg x1 in last 24 hours Objective: Objective Information: T PRBPSpO2 [id number]/7397% Date/Time12/06 5:5912/06 5: 5: 5: 12:05 Range(36.2C - 37.7C ) (75 - 90 ) (14 - 18 ) (108 - 120 )/ (54 - 73 ) (96% - 97% ) Highest temp of 37.7 C was recorded at 12/05 16:17 Mental Status Exam: General: NAD Appearance: CF dressed in personal attire; adequate grooming and hygiene. Appears stated age. Attitude: Attentive, cooperative, engaged with interview Behavior: Appropriate eye contact. Motor Activity: No PMA/PMR; no hand tremor noted. Gait fluid. Speech: Fluent with regular rate and tone; decreased volume. Normal syntax and prosody. Mood: "Good" Affect: Restricted but reactive; smiled intermittently throughout interview. Thought Process: Coherent, logical, linear Thought Content: Denied suicidal and homicidal thoughts/intent/desires ; no delusions elicited. Thought Perception: Did not endorse auditory or visual hallucinations; did not appear to be responding to hallucinatory stimuli. Cognition: Alert, grossly intact. Endorse memory impairment due to ECT Insight: Fair Judgment: Fair Medications: Continuous Medications --------- No continuous medications are active Scheduled Medications --------- 1. Desvenlafaxine Extended Release (NON-Formulary): 50 mg Oral Every 24 Hours 2. Fluticasone 50 microgram/ Nasal Inhalation: 1 spray(s) Each Nostril 2 Times a Day 3. Athalia Carbonate: 300 mg Oral 4. Athalia Carbonate: 300 mg Oral 5. Athalia Carbonate: 600 mg Oral 6. Athalia Carbonate: 600 mg Oral 7. Metoprolol Succinate Extended Release: 50 mg Oral 8. Pantoprazole: 40 mg Oral Daily PRN Medications --------- 1. Acetaminophen: 650 mg Oral Every 4 Hours 2. clonazePAM (KLONOPIN): 1 mg Oral Every 12 Hours 3. diphenhydrAMINE: 50 mg Oral Every 6 Hours 4. diphenhydrAMINE Injectable: 50 mg IntraMuscular Every 6 Hours 5. Haloperidol Lactate: 5 mg Oral Every 6 Hours 6. Haloperidol Lactate Injectable: 5 mg IntraMuscular Every 6 Hours 7. Ibuprofen: 400 mg Oral Every 6 Hours 8. Ketorolac: 10 mg Oral Once 9. LORazepam: 1 mg Oral Every 6 Hours 10. LORazepam Injectable: 1 mg IntraMuscular Every 6 Hours 11. Magnesium Hydroxide -Al Hydrox -Simethicone Oral Liquid: 30 mL Oral Every 6 Hours Assessment and Plan: Assessment: Lily Quiroz is a 28yo F with history of Bipolar 1 Disorder, unspecified anxiety disorder, PTSD, cannabis use disorder, and afib not on AC who is admitted for suicidal thoughts of overdosing vs jumping off a bridge. She was last admitted to [facility] in Oct 2018 and received inpatient ECT (RUL) with overall improvement in symptoms. She was transitioned to once weekly maintenance ECT on an outpatient basis. However, her depression and suicidal ideations recurred as the anniversary of her late 's is coming up. 12/06/2018: Patient reported symptomatic improvement in supportive and controlled environment. Acknowledges that she needs increased support around the anniversary of her late . Deemed low acute risk of harm to self; may be considered mild to moderate chronic risk of harm to self to do serious psychiatric illness, life crisis ('s ), mood instability, and impulsivity Stable for discharge today. Will increase outpatient maintenance ECT to twice weekly during this acute period (next session Wednesday, 12/09). Impression: Bipolar 1 disorder, currently depressed Unspecified anxiety disorder Cannabis use disorder PTSD by history Plan: #Bipolar 1 disorder, currently depressed; Unspecified anxiety disorder - Legal status: Voluntary - ECT: Session #1 on 12/05/2018 - Continue - Athalia 300mg / 600mg PO BID (0900 and 1600 on pre-ECT days, 1300 and 2000 on ECT days) - Klonopin 1mg PO BID; change to PRN for anxiety - Desvenlafaxine Succinate ER 50mg PO qday - For agitation: Benadryl 50mg PO/IM q6h PRN, Haldol 5mg PO/IM q6h PRN, Ativan 1mg PO/IM q6h PRN severe agitation/psychosis #Cannabis use disorder - Continue motivational interviewing and dual dx groups #MTHFR Gene - Continue ASA 81mg PO qday #Allergies - Continue home Zyrtec 10mg PO qday + nasal spray #afib - Continue home Metroprolol XR 50mg PO qHS #GERD - Continue Pantoprazole 40mg PO qday Diet: Regular Dispo: Back home; discharge today Follow-up: (Dr. Peterson) Medication Consent: Medication Consent: no medication changes necessary for review. Signature/Cosignature/A ttestation: Attending AttestationI saw and evaluated the patient. I personally obtained the burr and critical portions of the history and physical exam or was physically present for burr and critical portions performed by the resident/fellow. I reviewed the resident/fellows documentation and discussed the patient with the resident/fellow. I agree with the resident/fellows medical decision making as documented in the residents note. I personally evaluated the patient (as noted in the above attestation) on 06-Dec-2018 Electronic Signatures: Daphne George (Resident)) (Signed 06-Dec-2018 11:01) Authored: Subjective Data, Objective, Assessment and Plan, Medication Consent, Signature/Cosignature/A ttestation Adriana Adames) (Signed 06-Dec-2018 11:24) Authored: Signature/Cosignature/A ttestation Co-Signer: Subjective Data, Objective, Assessment and Plan, Medication Consent, Signature/Cosignature/A ttestation Last Updated: 06-Dec-2018 11:24 by Adriana Adames) [facility] Clinical Event Note-BL multi ple seizure ECT #1on 12-05-2018 Clinical Event Note-BL multiple seizure ECT #1 Event: Topic: BL multiple seizure ECT #1 Details: She was seen earlier this morning for ECT evaluation. she was very depressed then. She fully understood the risk and benefit from ECT including potential and permanent memory loss before she signed the ICF. QIDS=17; MOCA=29 She was awake, alert, cooperative, and pleasant. good eye contact. oriented x3. speech was normal. affect was restricted. mood - ok. denied having SI/HI/AVH during the interview. no delusional thought. I/J were fair. memory was ok. attention and concentration were adequate. Tolerated ECT well no complication Imp: bipolar I depression, severe Plan: continue acute ECT 3 times a week at this time. Alanis Cornejo MD. Electronic Signatures: Alanis Cornejo) (Signed 05-Dec-2018 11:18) Authored: Event Last Updated: 05-Dec-2018 11:18 by Alanis Cornejo) [facility] Consult - Psychiatryon 12-05 Consult - Psychiatry Referral Informatio n: Consult requested by (Attending Name): Drs. Rojas and Zacarias Reason: ECT evaluation History of Present Illness: Admission Reason: Depression with SI HPI: Her chart was reviewed before she was interviewed. She was admitted over the weekend because her depression worsened with SI. She said she felt more depressed and had SI after she some pictures of her who committed suicide years ago. She called physician vice president on-call line for help. The on-call resident call police. She was brought to an ECT and admitted here afterwards. She said she felt a little after hospitalization. did not have SI after being admitted although she still felt very depressed and anxious. She said ECT helped her overall to some extent. Her mother and brother told that she looked and smiled more since she started ECT treatment. did not have dissociative feeling after stopping ketamine. Memory got a little better with less frequent ECT treatment. no other concern. Past Psychiatric History: long hx of bipolar disorder with treatment resistant depression and chronic suicidal ideation and a plan of hanging herself failed a lot of medications responded to ECT to some extent Past Psychiatric Meds/Treatments/ECT: ECT started as an outpatient about a month ago started having memory problem in last 3 weeks or so. Past Medical/Surgical History: Medical History: Paroxysmal A-fib: GERD (gastroesophageal reflux disease): History of migraine headaches: History of seizure disorder: Description: until 15 year old no medications >10 years Sleep paralysis: Family History: Family History: Substance Abuse: no Social History: Smoking Status: never smoker Alcohol Use: denies Drug Use: denies Social History: living with her mother mother just had a stroke stressful at home Occupation: unemployed Allergies: No Known Allergies: Intolerances: Dilaudid: Nausea/Vomiting Medications Prior to Admission: The patient does not take any medications at home. OARRS Review: OARRS checked: no Psychiatric Review of Symptoms: Anxiety: DIONE General Anxiety Disorder: difficult to control worry, difficulty concentrating, easily fatigued, restlesness, sleep disturbance Depression: anhedonia, concentration, energy, helpless, hopeless, interest, persistant thoughts of , sleep decreased Delirium: negative Psychosis: negative Tea: negative Review of Systems: Constitutional: NEGATIVE: Fever, Chills, Anorexia, Weight Loss, Malaise Eyes: NEGATIVE: Blurry Vision, Drainage, Diploplia, Redness, Vision Loss/ Change ENMT: NEGATIVE: Nasal Discharge, Nasal Congestion, Ear Pain, Mouth Pain, Throat Pain Respiratory: NEGATIVE: Dry Cough, Productive Cough, Hemoptysis, Wheezing, Shortness of Breath Cardiac: NEGATIVE: Chest Pain, Dyspnea on Exertion, Orthopnea, Palpitations, Syncope Gastrointestinal: NEGATIVE: Nausea, Vomiting, Diarrhea, Constipation, Abdominal Pain Genitourinary: NEGATIVE: Discharge, Dysuria, Flank Pain, Frequency, Hematuria Musculoskeletal: NEGATIVE: Decreased ROM, Pain, Swelling, Stiffness, Weakness Neurological: NEGATIVE: Dizziness, Confusion, Headache, Seizures, Syncope Psychiatric: NEGATIVE: Mood Changes, Anxiety, Hallucinations, Sleep Changes, Suicidal Ideas Skin: NEGATIVE: Mass, Pain, Pruritus, Rash, Ulcer Endocrine: NEGATIVE: Heat Intolerance, Cold Intolerance, Sweat, Polyuria, Thirst Hematologic/Lymph: NEGATIVE: Anemia, Bruising, Easy Bleeding, Night Sweats, Petechiae Allergic/Immunologic: NEGATIVE: Anaphylaxis, Itchy/ Teary Eyes, Itching, Sneezing, Swelling Objective: Objective Information: she was interviewed in the group therapy room no distress or abnormal movement. normal gait. She was awake, alert, cooperative, and pleasant. good eye contact. oriented x3. speech was normal. affect was restricted. mood - ok. denied having SI/HI/AVH during the interview. no delusional thought. I/J were fair. memory was ok. attention and concentration were adequate. T PRBPSpO2 [id number]% Date/Time12/05 5: 5: 5: 5: 5:46 Range(36.6C - 36.9C ) (79 - 84 ) (16 - 18 ) (105 - 111 )/ (63 - 69 ) (100% - 100% ) Highest temp of 36.9 C was recorded at 12/04 18:45 Pain reported at 12/05 3:15: 0 ---- Intake and Output ----- [facility] 2:00 [id number] The Intake and Output Totals for the last 24 hours are: IntakeOutputNet 480nullnull ---Intake--- Enteral - Oral PO Fluid/Feed (oral): 480 mL ---Output--- Functional Estimates: Estimate of Intelligence: average Estimate of Capacity for Activities of Daily Living: independent Medications: Continuous Medications --------- No continuous medications are active Scheduled Medications --------- 1. Aspirin Chewable: 81 mg Oral Daily 2. Fluticasone 50 microgram/ Nasal Inhalation: 1 spray(s) Each Nostril 2 Times a Day 3. Loratadine: 10 mg Oral Daily 4. Metoprolol Succinate Extended Release: 50 mg Oral 5. Pantoprazole: 40 mg Oral Daily PRN Medications --------- 1. Acetaminophen: 650 mg Oral Every 4 Hours 2. diphenhydrAMINE: 50 mg Oral Every 6 Hours 3. diphenhydrAMINE Injectable: 50 mg IntraMuscular Every 6 Hours 4. Haloperidol Lactate: 5 mg Oral Every 6 Hours 5. Haloperidol Lactate Injectable: 5 mg IntraMuscular Every 6 Hours 6. Ibuprofen: 400 mg Oral Every 6 Hours 7. Ketorolac: 10 mg Oral Once 8. Magnesium Hydroxide -Al Hydrox -Simethicone Oral Liquid: 30 mL Oral Every 6 Hours Currently Suspended Medications --------- 1. clonazePAM (KLONOPIN): 1 mg Oral Every 12 Hours 2. Athalia Carbonate: 300 mg Oral Every Morning 3. Athalia Carbonate: 600 mg Oral At Bedtime 4. LORazepam: 1 mg Oral Every 6 Hours 5. LORazepam Injectable: 1 mg IntraMuscular Every 6 Hours Recent Lab Results: Results: I have reviewed these laboratory results: Athalia Level, Serum [Drawn 04-Dec-2018 06:30:00]. Assessment/Recommendati ons: Psychiatric Risk Assessment: Violence Risk Assessment: major mental illness Acute Risk of Harm to Others is Considered: minimal Suicide Risk Assessment: , current psychiatric illness, feelings of hopelessness, global insomnia, severe anxiety, suicidal plans, unmarried Protective Factors against Suicide: adherence to treatment, positive family relationships Risk of Harm to Self is Considered: moderate Assessment: Imp: bipolar I depressive, severe DIONE PTSD treatment-refractory to meds some benefit from ECT no contraindication to ECT may benefit form continuation of ECT she understood the risk and benefit including potential and permanent memory loss she wanted to continue ECT she will be on today's schedule may have ECT 3 times a week depending on her memory problem. Alanis Cornejo MD. Electronic Signatures: Alanis Cornejo) (Signed 05-Dec-2018 11:03) Authored: Referral Information, History of Present Illness, Past Psychiatric History, Past Medical/Surgical History, Family History, Social History, Allergies, Medications Prior to Admission, Psychiatric Review of Symptoms, Review of Systems, Objective, Assessment/Recommendati ons, Signature/Cosignature/A ttestation Last Updated: 05-Dec-2018 11:03 by Alanis Cornejo) [facility] Daily Progress Note - Psychi atryon 12-05-2018 Daily Progress Note - Psychiatry Subjective Data: LILY QUIROZ is a 28 year old Female who is Hospital Day # 3. Had suicidal thoughts the night of presentation, thought she should tell someone, which led to her current admission. Was thinking about her late . At that time, didn't think she would follow-through on her thoughts. Denies suicidal thoughts today. Feels pretty good and looking forward to discharge. Reported good weekend, although had low mood. Amenable to ECT today, seeing how she feels afterwards, possible dc tomorrow if stable, and then biweekly outpatient ECT for maintenance. Endorsed memory problems related to ECT. Endorsed current headache. Saw her psychiatrist recently and was doing well at the time; no changes to her home medications. Objective: Objective Information: T PRBPSpO2 [id number]/6896% Date/Time12/05 11: 11: 11: 11: 11:30 Range(36.2C - 36.9C ) (79 - 84 ) (14 - 18 ) (105 - 111 )/ (63 - 69 ) (96% - 100% ) Highest temp of 36.9 C was recorded at 12/04 18:45 Mental Status Exam: General: NAD Appearance: CF dressed in personal attire; adequate grooming and hygiene. Appears stated age. Attitude: Attentive, cooperative, engaged with interview Behavior: Appropriate eye contact. Motor Activity: No PMA/PMR; no hand tremor noted. Gait fluid. Speech: Fluent with regular rate and tone; decreased volume. Normal syntax and prosody. Mood: "Good" Affect: Dysthymic but reactive, restricted Thought Process: Coherent, logical, linear Thought Content: Denied suicidal and homicidal thoughts/intent/desires ; no delusions elicited. Thought Perception: Did not endorse auditory or visual hallucinations; did not appear to be responding to hallucinatory stimuli. Cognition: Alert, grossly intact. Endorse memory impairment due to ECT Insight: Fair Judgment: Fair Medications: Continuous Medications --------- No continuous medications are active Scheduled Medications --------- 1. Desvenlafaxine Extended Release (NON-Formulary): 50 mg Oral Every 24 Hours 2. Fluticasone 50 microgram/ Nasal Inhalation: 1 spray(s) Each Nostril 2 Times a Day 3. Athalia Carbonate: 300 mg Oral Every Morning 4. Athalia Carbonate: 600 mg Oral At Bedtime 5. Metoprolol Succinate Extended Release: 50 mg Oral 6. Pantoprazole: 40 mg Oral Daily PRN Medications --------- 1. Acetaminophen: 650 mg Oral Every 4 Hours 2. clonazePAM (KLONOPIN): 1 mg Oral Every 12 Hours 3. diphenhydrAMINE: 50 mg Oral Every 6 Hours 4. diphenhydrAMINE Injectable: 50 mg IntraMuscular Every 6 Hours 5. Haloperidol Lactate: 5 mg Oral Every 6 Hours 6. Haloperidol Lactate Injectable: 5 mg IntraMuscular Every 6 Hours 7. Ibuprofen: 400 mg Oral Every 6 Hours 8. Ketorolac: 10 mg Oral Once 9. LORazepam: 1 mg Oral Every 6 Hours 10. LORazepam Injectable: 1 mg IntraMuscular Every 6 Hours 11. Magnesium Hydroxide -Al Hydrox -Simethicone Oral Liquid: 30 mL Oral Every 6 Hours Assessment and Plan: Assessment: Lily Quiroz is a 28yo F with history of Bipolar 1 Disorder, unspecified anxiety disorder, PTSD, cannabis use disorder, and afib not on AC who is admitted for suicidal thoughts of overdosing vs jumping off a bridge. She was last admitted to [facility] in Oct 2018 and received inpatient ECT (RUL) with overall improvement in symptoms. She was transitioned to once weekly maintenance ECT on an outpatient basis. However, her depression and suicidal ideations recurred as the anniversary of her late 's is coming up. 12/05/2018: Patient reported symptomatic improvement in supportive and controlled environment. She exhibited fair insight and judgment as she was able to recognize a worsening of her symptoms in the context of her 's anniversary and reached out for help; she was also able to recognize that she did not want to hurt herself despite her suicidal thoughts. Will give ECT today and assess for progression of symptoms. If stable, can discharge tomorrow with plan to increase maintenance ECT to biweekly during this more difficult time in patient's life. Impression: Bipolar 1 disorder, currently depressed Unspecified anxiety disorder Cannabis use disorder PTSD by history Plan: #Bipolar 1 disorder, currently depressed; Unspecified anxiety disorder - Legal status: Voluntary - ECT: Session #1 on 12/05/2018 - Continue - Athalia 300mg / 600mg PO BID (0900 and 1600 on pre-ECT days, 1300 and 2000 on ECT days) - Klonopin 1mg PO BID; change to PRN for anxiety - RESTART Desvenlafaxine Succinate ER 50mg PO qday - For agitation: Benadryl 50mg PO/IM q6h PRN, Haldol 5mg PO/IM q6h PRN, Ativan 1mg PO/IM q6h PRN severe agitation/psychosis #Cannabis use disorder - Continue motivational interviewing and dual dx groups #Allergies - Continue home Zyrtec 10mg PO qday + nasal spray #afib - Continue home Metroprolol XR 50mg PO qHS #GERD - Continue Pantoprazole 50mg PO qday Diet: Regular Dispo: Back home; pending symptomatic improvement Follow-up: (Dr. Peterson) Medication Consent: Medication Consent: no medication changes necessary for review. Signature/Cosignature/A ttestation: Attending AttestationI saw and evaluated the patient. I personally obtained the burr and critical portions of the history and physical exam or was physically present for burr and critical portions performed by the resident/fellow. I reviewed the resident/fellows documentation and discussed the patient with the resident/fellow. I agree with the resident/fellows medical decision making as documented in the residents note. I personally evaluated the patient (as noted in the above attestation) on 05-Dec-2018 Comments/ Additional Findings Pt interviewed, chart and txment plan reviewed. For ECT today, she has had some memory issues related to ECT and dissociative reaction from the Ketamine. However, ECT she does think has helped. She developed SI, thoughts to jump from the same bridge her did who did successfully complete suicide. She does have good support from family, was able to call her to ECT and reach out for help. Will discharge her as soon as her SI is resolved, hopefully she continues to benefit from ECT Electronic Signatures: Daphne George (Resident)) (Signed 05-Dec-2018 12:47) Authored: Subjective Data, Objective, Assessment and Plan, Medication Consent, Signature/Cosignature/A ttestation Adriana Adames) (Signed 06-Dec-2018 09:44) Authored: Signature/Cosignature/A ttestation Co-Signer: Subjective Data, Objective, Assessment and Plan, Medication Consent, Signature/Cosignature/A ttestation Last Updated: 06-Dec-2018 09:44 by Adriana Adames) Normal [facility] Discharge Planning Noteon Discharge Planning Note Discharge Needs Assessment: Discharge Planning Assessment Completed byRENITA Morales Patient Learning: Factors that Impact Ability to Learnnone(1) Other Factors: Functional Screen: In the recent/past 2-4 weeks, patient or family have noticedno issues that require a rehabilitation consult at this time(2) Discharge Planning: Discharge Plannin12/04/1815:23. 28 year old female who was admitted on involuntary basis due to expressing SI with a plan to either overdose to drive to [place] to jump off the bridge where her spouse committed suicide approximately one year ago. Patient is currently receiving ECT (19 sessions) at [facility] - next appointment is on 12/06/18. Prior to considering suicide, the client admitted to smoking THC which she does not smoke on a regular basis. (completed by ADRIENNE Contreras). 12/05/1815:19. Patient is being stabilized; started ECT today; plan is to discharge her tomorrow, to continue ECT on an outpatient basis; She will follow with: Dr. Adriana Peterson at and Bridgett Awan at [facility] in [place]. To follow. PEREZ Sparrow. 12/06/18-16:36. Patient is discharged today; she is stabilized and will follow up with Dr. Nicholas MD at and her counselor at [facility]. PEREZ Sparrow. Final Disposition/Discharge: Disposition/Discharge Information: Discharge/Transfer Information: Discharge/Transfer Date/[id number] 15:00 Discharged Accompanied Byparent Discharge Modeambulatory Transportation Methodprivate car Valuables/Medications/B elongings Returnedyes Security Envelope Returnedyes Final DispositionHome Electronic Signatures: Sydni Sanchez (CHARITY) (Signed 06-Dec-2018 16:37) Authored: Discharge Planning Note Lizette Rose (CLIN COOR) (Signed 06-Dec-2018 15:15) Authored: Final Disposition/Discharge Last Updated: 06-Dec-2018 16:37 by Sydni Sanchez (CHARITY) References: 1. Data Referenced From 3. Plan of Care - Behavioral" 12/03/2018 10:58 AM 2. Data Referenced From Admission Risk Screen - Adult" 12/03/2018 10:58 AM Normal [facility] Discharge [id number] Discharge Profile2 Discharge Orders: Anticipated Discharge Date: Anticipated Discharge [id number] Problem List: Prelim Disch Dx: Suicidal ideation: Catalog Name: Suicidal ideations Bipolar I disorder, most recent episode depressed with melancholic features: Catalog Name: Bipolar disorder, current episode depressed, mild or moderate severity, unspecified Hospital Providers: Provider RoleProvider Name Adriana Kwok Lisa M Activity: activity as tolerated. Diet: Dietregular Additional Orders: Additional Instructions No changes were made to your medication list. Please make all your follow-up appointments. Please note that your outpatient ECT will be scheduled for twice a week (Wed) for maintenance. Your next ECT appointment will be 12/09/2018, at 06:45AM. Psychiatric Continuing Care Plan: Reason for Hospitalization: anxiety, depression, suicidal thoughts Discharge Destination: home Advance Directive Medical: no Social Interventions: Pending/Recommended/Est ablished: community program, ECT: outpatient Additional Resources for Patient and Family: [employer] Suicide Hotline - 1 (452) SUICIDE (180-1178), TYRONE - (618) 260-TYRONE (8497), National [place] on Mental Illness - [email or web address] Successful Interventions during Inpatient Hospital Stay: coping skills, daily routine/ structure, group programming, music, relaxation techniques, sleep routines, snoezelen/ comfort room, ECT Tobacco Use: Screening: Was the patient screened within the first 3 days of admission for tobacco use (cigarettes, smokeless tobacco, pipe, and cigar) within the previous 30 days: yes; NOT tobacco user This patient is being discharged on multiple antipsychotic medications: no: Take all medications until outpatient provider advises otherwise. Questions After Hospitalization: For Emergencies Related to Your Inpatient Hospitalization You May Phone (Doctor): Dr Adriana Adames, physician Phone Number: [address] Advance Directives: Advance Directive (Medical)no Advance Directive Information Givenpatient/family declined Reason No Advance Directive (Medical)did not wish to discuss adv directive/surrogate Advance Directive (Mental Health)no Advance Directive Information Given (Mental Health)yes; provided in admission packet Reason No Advance Directive (Mental Health)did not wish to discuss adv directive/surrogate Transition Record: Transition Record Discussed: All 11 elements of this patients transition record were discussed with the patient/caregiver and the Next Level of Care Provider Transition Record Given: A copy of the transition record was given to the patient and was transmitted to the Next Level of Care Provider Behavioral Health Labs: Toxicology + Therapeutic Drugs: 04-Dec-2018 06:30, Athalia Level, Serum Athalia Level, Serum: 0.70, [0.60 - 1.20 mmol/L] Vascular: Follow-Up - Vascular Surgeon: Physician/Dept./Service Vascular Surgeon Provider FINAL REVIEW of Orders: Final Review: Final Review of Medication Reconciliation and Orders Completedby Physician Reviewing ProviderDaphne George MD (Resident) at 06-Dec-2018 11:09:06 Appointments: Follow-Up Appointment 01: Physician/Dept/Maxx Peterson MD, Psychiatry. Reason for Referral(medication management) Scheduled Date/[id number] 09:00 [facility]/ Dept. of Outpatient Adult Psychiatry, [address] (Jose [address].)[place], [place] Phone [phone]; f. [phone]; Follow-Up Appointment 02: Physician/Dept/Andi clayton, Counselor Call to Schedule in2-3 days [facility] [address], [place] Phone [phone]; f. [phone]; Follow-Up Appointment 03: Physician/Dept/Hyun utpatient ECT Reason for Referraldepression Scheduled Date/[id number] 06:45 Ubyuzjyi8rq floor [facility] [address] [facility] [id number] Phone [phone] or [phone] CommentsPlease report to registration on the 1 st floor at 0630 am, bring photo ID and proof of insurance Other Clinician Instructions: Other Instructions: Nursing InstructionsMedication and treatment compliance is important in order to stay mentally and physically healthy and to prevent relapse. Encourage patient in improving positive coping skills, emotional regulation skills, and resumption of a more functional daily routine. Develop a coping skills toolbox; make a list of supports, keep on hand Other Clinician InstructionsShe was given one session of inpatient ECT on 12/05/2018. To help her through this acute period, there was a plan to increase her outpatient maintenance ECT to twice a week at the time of discharge. Next session scheduled for 12/09/2018 at 0645h. Patient was able to acknowledge that she needs increased support around the anniversary of her late and identified several people (including outpatient providers) to whom she can reach out Handouts Given: Topic 1resource Electronic Signatures: Sydni Sanchez () (Signed 06-Dec-2018 09:51) Authored: Appointments Daphne George (Resident)) (Signed 06-Dec-2018 11:09) Authored: Discharge Orders, Provider FINAL REVIEW of Orders, Gold Form - E M Assembler Summary Lizette Rose (CLIN COOR) (Signed 06-Dec-2018 12:04) Authored: Discharge Orders, Psychiatric Continuing Care Plan, Vascular, Appointments, Other Clinician Instructions Last Updated: 06-Dec-2018 12:04 by Lizette Rose (CLIN COOR) Normal [facility] Preop Checkliston 12-05-2018 Preop Checklist Preop Checklist: Preop Checklist: NPO [id number] 00:00 ID Band Onyes Allergy Bandyes Consent Signedpending H&P Completeyes Anesthesia Assessment Completedpending EKG Performedsee results tab SCD's Appliednot applicable Cardiovascular Assessment: Apicalregular Radial Pulsespalpable Pedal Pulsespalpable Extremitieswarm Respiratory Assessment: Respirationsunlabored regular Air Exchangeequal, good Breath Soundsclear Neurological Assessment: Level of Consciousnessalert, oriented Mobilitymoves all extremities Able to Express Selfyes Age Appropriateyes Emotional Statuscalm Language / Communication: Language / CommunicationEnglish Electronic Signatures: Dorinda Alberto (KEVIN) (Signed 05-Dec-2018 05:42) Authored: Preop Checklist Last Updated: 05-Dec-2018 05:42 by Dorinda Alberto (KEVIN) Normal [facility] Daily Progress Note - Psychi atryon 12-04-2018 Daily Progress Note - Psychiatry Subjective Data: LILY QUIROZ is a 28 year old Female who is Hospital Day # 2. pt seen , nsg input obtained. Pt asking whether she will get ketamine w/ect tomorrow-concerned about ect related headaches- advised her we can give her toradol. Objective: Objective Information: T PRBPSpO2 [id number] Date/Time12/04 18: 18: 18: 18:45 Range(36.7C - 37.1C ) (80 - 84 ) (16 - 18 ) (105 - 108 )/ (63 - 69 ) Highest temp of 37.1 C was recorded at 12/04 5:46 Pain reported at 12/04 9:00: 0 ---- Intake and Output ----- Mn/Dy/Year TimeIntakeOutputNet Dec 04, 2018 2:00 [id number] Dec 03, 2018 10:00 [id number] The Intake and Output Totals for the last 24 hours are: IntakeOutputNet [id number] Mental Status Exam: General: No acute distress, seated in hospital chair Appearance: female, appears stated age. good grooming and hygiene Attitude: calm, cooperative, mildly anxious Behavior: Appropriate eye contact. Motor Activity: No agitation or retardation. No EPS/TD. Normal gait. Speech: Clear, spontaneous, some latency, and mild word finding diffculty. Variable rate, tone and volume Mood: dysphoric, anxious Affect: congruent with mood, constricted. non-labile. Thought Process: Coherent, Logical associations. Thought form is linear and organized. Thought Content: Does not endorse suicidal ideation currently, no HI, no delusions elicited. Thought Perception: Does not endorse auditory or visual hallucinations, does not appear to be responding to hallucinatory stimuli. Cognition: Alert, oriented x3. Adequate fund of knowledge. No deficits in attention, concentration, recent or remote memory. Insight: fair Judgment: fair Assessment and Plan: Assessment: Lily Quiroz is a 28 yo female with a PPHx of bipolar disorder, anxiety, depression and PTSD and a PMH of who presented to the [facility] ED with SI. On interview, pt is dysphoric, anxious and denies current SI/HI. Pt is future-oriented toward ECT on Wednesday12/05/2017. Plan to continue treatments without ketamine 2/2 dissociative episodes in the recent past. Due to patients acute symptoms of psychiatric illness, patient will benefit from inpatient hospitalization for safety, stabilization and treatment. Diagnostic Impression: Bipolar 1 disorder, currently depressed Cannabis use disorder h/o trauma Admit to 3W for safety, stabilization and treatment. Restricted to [place]. Legal Status: Involuntary Code Status: Full Code with Suicide and Elopement precautions Medications: patient reports compliance with medications, will continue -lithium 300 mg qAM, lithium 600 mg qHS -Pristiq 50 mg XR (held, not on formulary; will need pt to bring own medication) -KlonoPIN 1 mg tab PRN panic attacks -ECT IN AM WITHOUT KETAMINE ANESTHETIC- USE TORADOL FOR HEAEDACHES Continue Home Medications: -ZyrTEC 10 mg daily allergies -metoprolol succinate 50 mg XR, every evening h/o atrial fibrillation -Aspirin Enteric Coated 81 mg h/o atrial fibrillation -Protonix 40 mg every afternoon for GERD -azelastine 137 mcg/inh (0.1%) nasal spray: 1 spray 2 times a day - allergies -Flonase 50 mcg/inh nasal spray: 1 spray 2 times a day - allergies Trauma Hx: patient reports significant h/o trauma, will defer to primary team to further assess Cannabis Use Disorder Will address with motivational interviewing, dual dx groups, inpatient AA/NA meetings consider outpatient dual dx treatment after d/c diet: regular DVT ppx: ambulation Medication Consent: Medication Consent: no medication changes necessary for review. Electronic Signatures: Chadwick Rojas) (Signed 04-Dec-2018 19:52) Authored: Subjective Data, Objective, Assessment and Plan, Medication Consent, Signature/Cosignature/A ttestation Last Updated: 04-Dec-2018 19:52 by Chadwick Rojas) [facility] Admission Risk Screen - Adul ton 12-03-2018 Admission Risk Screen - Adult Allergies: Allergies: No Known Allergies: Intolerances: Dilaudid: Nausea/Vomiting Patient Verification: New W ID Band Applied in my Departmentyes Patient Identity Verified Bypatient ID Band FULL Name, include Middle, spelling matches patient's ID used for verificationyes ID Band Matches Patient ID used for Verficationyes ID Band MRN Matches EMR MRNy Falls Screen: Type of Assessmentadmission Risk for Injury Associated with Fallnone Fall Risk Conclusionmoderate falls risk with low risk for associated injury [place] Safety InterventionsWDL *orient to call system *instruct to call for assistance before getting out of bed *non-slip footwear when patient is out of bed *call [place] in reach *personal items and telephone in reach *physically safe environment (no spills or clutter) *bed in lowest position with wheels locked *appropriate side rails in place *room/bathroom lighting operational, light cord in reach *appropriate signage on door Fall and Injury Risk Interventionseducate pt/family, monitor med side effects, consult Pharmacy, educate patient/family for risk for injury (fractures and bleeding) Family Violence Screen: Are you or have you been threatened or abused physically, emotionally, or sexually by anyoneyes Has anyone ever threatened to hurt your family or your petsyes Do you feel UNSAFE going back to the place where you are livingno Clinical assessment: Are there any apparent signs of injuries/behaviors that could be related to abuse/neglectno Social Service Consult for abuse/neglect needed this visitno Functional screen: Functional Screen: In the recent/past 2-4 weeks, patient or family have noticedno issues that require a rehabilitation consult at this time Learning Assessment (Patient): Patient is Able to be Assessed for Learningyes Factors Influencing Readiness to Learnanxiety; depression Factors that Impact Ability to Learnnone Devices/Methods Used to Communicateglasses Learning Preferencespictorial; computer/internet Cultural Considerationsnone Developmental Considerationsnone Jew Considerationsnone Learning Assessment (Other Learner): Other learner availableno Suicide/Depression Screen: During the past month, have you often been bothered by feeling down, depressed or hopelessyes During the past month, have you often had little interest or pleasure in doing thingsyes Have you had any thoughts of harming yourselfyes Have you had any thoughts of harming anyone elseno Adult Nutrition Screen: Have you recently lost weight without tryingyes; 2-13 lb Have you been eating poorly because of a decreased appetiteno MST Score1 RiskMST = 0 or 1 Not at risk. Eating well with little or no weight loss Nutrition Consult needed this visitno Can Patient Participate in Room Serviceyes Patient requires Paper Dishes/Plastic Utensilsno Pain Screen: Pain Scalenumerical 0-10 Pain Scale Educationteaching provided Current Pain Level4 = Moderate Acceptable Pain Level6 = Moderate Expression of Pain (nonverbal)none Lifestyle Changes/Adaptations in Response to Painno change Chronic Painyes Chronic Head/Neck pain locationtemporal region, forehead Spiritual Screen: Are there any cultural, spiritual, baptist practices/values/needs that are important for us to knowno Vaccinations: Vaccination - Influenza Vaccination Screen: Is it flu season (between and )Yes Screening for identified contraindications to influenza vaccination patient/caregiver refusal Vaccination - Pneumonia Vaccination Screen: Patient has received a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 Tolerated ECT well no complication Imp: bipolar I depression, severe - recovering; dissociative sx nos. Plan: treated without Ketamine today; ECT in a weeks; may take 2 mg klonopin at home if dissociative sx continues at home; may be admitted if her sx is severe. Alanis Cornejo MD. Electronic Signatures: Alanis Cornejo) (Signed 28-Nov-2018 09:10) Authored: Event Last Updated: 28-Nov-2018 09:10 by Alanis Cornejo) [facility] Homegoing Instructionson Homegoing Instructions Additional Instructions: Medication Information: Medication Instructions Do not have anything by mouth after midnight the night before your treatment unless instructed otherwise. You may have clear liquids up until 6 hours prior to your appointment. Take the following medications with a sip of water in the morning prior to ECT: Protonix Do not take the following medication(s) after 4:00 PM the night before or morning of ECT: Athalia, klonopin Appointments: Service/Clinician NameECT- Please stop at Registration 10-15 minutes prior to your appointment time. Date/[id number] 07:[address] [facility], [address] [facility]. Third floor [phone] Appointment CommentPlease remember that we must have at least 24 hours notice if you need to cancel your appointment. If you cancel your appointment late or do not show for your appointment 3 times, no additional appointments will be scheduled. It is very important that you arrive for your appointment at or before the scheduled time. If you are more than 10 minutes late, there is a chance that we may have to cancel the appointment. Electronic Signatures: Lexy Hylton) (Signed 28-Nov-2018 09:24) Authored: Additional Instructions Last Updated: 28-Nov-2018 09:24 by Lexy Hylton) [facility] Patient Profile - Preop v2on 11-28-2018 Patient Profile - Preop v2 Profile: Initial Info: How to be AddressedKate(1) Spoken Language PreferredEnglish (1) Source of Informationpatient Are you currently using the Personal Electronic Health Record or Symphogenyes (1) Stated Reason for AdmissionECT Primary Contact Name and NumberErick Guajardo [phone] Patient Belongingsremains with patient Patient Belongings Remaining with Patientclothing; cell phone/electronics; purse/wallet; turcios/credit card; vision aids Medications Brought to Hospitalno General Health: Weight in kg72.5 kilogram(s) Weight in wrs605.8 pound(s) Weight Methodstated Height in cm172.7 centimeter(s) Height in feet5 feet Height in inches8 inch(es) Height Methodstated BMI (kg/m2)24.308 square meter Patient or Family Member Reaction to Anesthesiano previous reaction Blood Avoidance/Restrictionsn one Previous Transfusion Reactionno Health Mgmt: Symptoms/Conditions Managed at Homebehavioral health; cardiovascular; gastrointestinal; HEENT (head, eyes, ears, nose, throat); musculoskeletal; neurological; endocrine Are You Currently Breastfeedingunable to answer Behavioral Health Symptoms/Conditionsbipo lar affective disorder; depression; anxiety; post traumatic stress Behavioral Management Strategiescounseling; medication therapy Behavioral Health Symptoms/Conditions CommentInitiated Electroconvulsive Therapy Cardiovascular Symptoms/Conditionsdysr hythmia Cardiovascular Management Strategiesmedication therapy Cardiovascular Symptoms/Conditions CommentA-fib Endocrine Symptoms/Conditions CommentMTHFR mutation Gastrointestinal Symptoms/Conditionsrefl ux/heartburn; constipation Gastrointestinal Management Strategiesmedication therapy Gastrointestinal Symptoms/Conditions CommentGERD HEENT Symptoms/Conditionsvisi on problem(s) HEENT Management Strategiesmedication therapy HEENT Symptoms/Conditions CommentEnvironmental allergens; stigmatism Musculoskeletal Symptoms/Conditions 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 Neurological Symptoms/Conditionshead trauma Neurological Management Strategiesmedication therapy Neurological Symptoms/Conditions Commentmigraines; hx epilepsy Are You no Barriers to Managing Healthfinancial resources Relationship/Environ: Lives Withparent(s); sibling(s)(1) Living Arrangementshouse(1) Resource/Environmental Concernsfinancial Anticipated [facility] Substance: Current or Former Substance Use never: Cigarette/Tobacco, e-Cigarette/Vaping YES: Alcohol, Street Drugs Alcohol Use Statuspast alcohol Alcohol Frequencymonthly or less Alcohol Last Usecouple years Street Drug/Inhalant/ Medication Use Statuscurrent street drug/inhalant/medicatio n abuse Street Drug/Medication/ Inhalant Typemarijuana Street Drug/Medication/ Inhalant Routesmoking Frequency of Street Drug/Medication/Inhalan t Usemonthly or less Street Drug/Medication/ Inhalant Use Additional CommentsSmoked marijuana on Wednesday evening Risk Screens: Advance Directive Medicalno Advance Directive Information Givenpatient/family declined Advance Directive Mental Healthno; information given/requested Advance Directive Information Given (Mental Health)patient/family declined During the past month, have you often been bothered by feeling down, depressed or hopelessyes During the past month, have you often had little interest or pleasure in doing thingsyes Have you had any thoughts of harming yourselfyes Admits to having thoughts to self harm, pt has been superficially cutting the front of her left upper leg Have you had any thoughts of harming anyone elseno Suicide/Depression CommentContinues to have suicidal thoughts once a day. Says always has a plan. Patient is Able to be Assessed for Learningyes Factors Influencing Readiness to Learndepression; interest in learning Factors that Impact Ability to Learnnone Devices/Methods Used to Communicateglasses Learning Preferencesindividual instruction; computer/internet Cultural Considerationsnone Developmental Considerationsdevelopme ntal considerations ADHD Jew Considerationsnone Other learner availableno [place] RiskPatient location auto qualifies him/her for HIGH RISK. Are there any cultural, spiritual, baptist practices/values/needs that are important for us to knowno Pain Scalenumerical 0-10 Pain Scale Educationteaching provided Current Pain Level0 = None Acceptable Pain Level5 = Moderate Expression of Pain (nonverbal)none Lifestyle Changes/Adaptations in Response to Painno change Chronic Painno Information Review: Allergies, Home Meds and Significant Events have been Reviewed and Verified with Patient/Familyyes Allergy, Intolerance, Adverse Event: Allergies: No Known Allergies: Active Intolerances: Dilaudid: Drug, Nausea/Vomiting, Active Electronic Signatures: Lashawn Hubbard (MARITZA) (Signed 28-Nov-2018 07:20) Authored: Profile, Additional Information Last Updated: 28-Nov-2018 07:20 by Lashawn Hubbard (MARITZA) References: 1. Data Referenced From Patient Profile - Preop v2" 11/23/2018 07:27 AM Normal [facility] Preop Checkliston 11-28-2018 Preop Checklist Preop Checklist: Preop Checklist: Arrival [id number] Arrival Time07:00 NPO [id number] 03:00 NPO Commentsip of water to take protonix ID Band Onyes Allergy Bandno known allergies Consent Signedyes H&P Completeyes Anesthesia Assessment Completedyes SCD's Appliedno Denturesnot applicable Prostheticsnot applicable Hearing Aidsnot applicable Valuables Securedplaced in locker Glasses / Contactsleft in patient room Cardiovascular Assessment: Apicalregular Radial Pulsespalpable Pedal Pulsespalpable Extremitieswell perfused Respiratory Assessment: Respirationsunlabored Air Exchangeequal Breath Soundsclear Neurological Assessment: Level of Consciousnessalert Mobilitymoves all extremities Able to Express Selfyes Age Appropriateyes Emotional Statuscalm Preop Education: Surgical Site Infection Preventionn/a Language / Communication: Language / CommunicationEnglish Electronic Signatures: Lashawn Hubbard) (Signed 28-Nov-2018 07:19) Authored: Preop Checklist Last Updated: 28-Nov-2018 07:19 by Lashawn Hubbard (MARITZA) [facility] Clinical Event Note-BL Multi ple seizure ECT#14on 11-23-2018 Clinical Event Note-BL Multiple seizure ECT#14 Event: Topic: BL Multiple seizure ECT#14 Details: She said she did not feel much different compared to this past Wednesday, may be a little worse. she did not do well yesterday at home. Her mother went home after a stroke, did not go to rehab. her mother was more irritable and not doing well, which affected her mood too. still had SI on and off with the same plan, but no intent. memory was not good, but manageable at this time. She was awake, alert, cooperative, and pleasant. good eye contact. oriented x3. speech was normal. affect was appropriate, restricted most of time. denied having SI/HI/AVH during the interview. no delusional thought. I/J were fair. memory was ok. attention and concentration were adequate. Tolerated ECT well no complication Imp: bipolar I depression, severe - recovering Plan: ECT next Wednesday; reassess next time to determine treatment frequency. Alanis Cornejo MD. Electronic Signatures: Alanis Cornejo) (Signed 23-Nov-2018 08:49) Authored: Event Last Updated: 23-Nov-2018 08:49 by Alanis Cornejo) Normal [facility] Homegoing Instructionson Homegoing Instructions Additional Instructions: Medication Information: Medication Instructions Do not have anything by mouth after midnight the night before your treatment unless instructed otherwise. You may have clear liquids up until 6 hours prior to your appointment. Take the following medications with a sip of water in the morning prior to ECT: Protonix Do not take the following medication(s) after 4:00 PM the night before or morning of ECT: Athalia, klonopin Appointments: Service/Clinician NameECT- Please stop at Registration 10-15 minutes prior to your appointment time. Date/[id number] 07:[address] [facility], [address] [address] Third floor [phone] Appointment CommentPlease remember that we must have at least 24 hours notice if you need to cancel your appointment. If you cancel your appointment late or do not show for your appointment 3 times, no additional appointments will be scheduled. It is very important that you arrive for your appointment at or before the scheduled time. If you are more than 10 minutes late, there is a chance that we may have to cancel the appointment. Electronic Signatures: Lexy Hylton (MARITZA) (Signed 23-Nov-2018 09:05) Authored: Additional Instructions Last Updated: 23-Nov-2018 09:05 by Lexy Hylton (MARITZA) [facility] Patient Profile - Preop v2on 11-23-2018 Patient Profile - Preop v2 Profile: Initial Info: How to be AddressedKate(1) Spoken Language PreferredEnglish (1) Source of Informationpatient Are you currently using the Personal Electronic Health Record or Vizys (1) Stated Reason for AdmissionECT Primary Contact Name and NumberErick Guajardo [phone] Patient Belongingsremains with patient Patient Belongings Remaining with Patientclothing; cell phone/electronics; purse/wallet; turcios/credit card; vision aids Medications Brought to Hospitalno General Health: Weight in kg72.5 kilogram(s) Weight in jlc455.8 pound(s) Weight Methodstated Height in cm172.7 centimeter(s) Height in feet5 feet Height in inches8 inch(es) Height Methodstated BMI (kg/m2)24.308 square meter Patient or Family Member Reaction to Anesthesiano previous reaction Blood Avoidance/Restrictionsn one Previous Transfusion Reactionno Health Mgmt: Symptoms/Conditions Managed at Homebehavioral health; cardiovascular; gastrointestinal; HEENT (head, eyes, ears, nose, throat); musculoskeletal; neurological; endocrine Are You Currently Breastfeedingunable to answer Behavioral Health Symptoms/Conditionsbipo lar affective disorder; depression; anxiety; post traumatic stress Behavioral Management Strategiescounseling; medication therapy Behavioral Health Symptoms/Conditions CommentInitiated Electroconvulsive Therapy Cardiovascular Symptoms/Conditionsdysr hythmia Cardiovascular Management Strategiesmedication therapy Cardiovascular Symptoms/Conditions CommentA-fib Endocrine Symptoms/Conditions CommentMTHFR mutation Gastrointestinal Symptoms/Conditionsrefl ux/heartburn; constipation Gastrointestinal Management Strategiesmedication therapy Gastrointestinal Symptoms/Conditions CommentGERD HEENT Symptoms/Conditionsvisi on problem(s) HEENT Management Strategiesmedication therapy HEENT Symptoms/Conditions CommentEnvironmental allergens; stigmatism Musculoskeletal Symptoms/Conditions 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 Neurological Symptoms/Conditionshead trauma Neurological Management Strategiesmedication therapy Neurological Symptoms/Conditions Commentmigraines; hx epilepsy Are You no Barriers to Managing Healthfinancial resources Relationship/Environ: Lives Withparent(s); sibling(s)(1) Living Arrangementshouse(1) Resource/Environmental Concernsfinancial Anticipated [facility] Substance: Current or Former Substance Use never: Cigarette/Tobacco, e-Cigarette/Vaping YES: Alcohol, Street Drugs Alcohol Use Statuspast alcohol Alcohol Frequencymonthly or less Alcohol Last Usecouple years Street Drug/Inhalant/ Medication Use Statuscurrent street drug/inhalant/medicatio n abuse Street Drug/Medication/ Inhalant Typemarijuana Street Drug/Medication/ Inhalant Routesmoking Frequency of Street Drug/Medication/Inhalan t Usemonthly or less Street Drug/Medication/ Inhalant Use Additional CommentsSmoked marijuana on Wednesday evening Risk Screens: Advance Directive Medicalno Advance Directive Information Givenpatient/family declined Advance Directive Mental Healthno; information given/requested Advance Directive Information Given (Mental Health)patient/family declined During the past month, have you often been bothered by feeling down, depressed or hopelessyes During the past month, have you often had little interest or pleasure in doing thingsyes Have you had any thoughts of harming yourselfyes Admits to having thoughts to self harm, pt has been superficially cutting the front of her left upper leg Have you had any thoughts of harming anyone elseno Suicide/Depression CommentContinues to have suicidal thoughts once a day. Says always has a plan. Patient is Able to be Assessed for Learningyes Factors Influencing Readiness to Learndepression; interest in learning Factors that Impact Ability to Learnnone Devices/Methods Used to Communicateglasses Learning Preferencesindividual instruction; computer/internet Cultural Considerationsnone Developmental Considerationsdevelopme ntal considerations ADHD Jew Considerationsnone Other learner availableno [place] RiskPatient location auto qualifies him/her for HIGH RISK. Are there any cultural, spiritual, baptist practices/values/needs that are important for us to knowno Pain Scalenumerical 0-10 Pain Scale Educationteaching provided Current Pain Level0 = None Acceptable Pain Level5 = Moderate Expression of Pain (nonverbal)none Lifestyle Changes/Adaptations in Response to Painno change Chronic Painno Information Review: Allergies, Home Meds and Significant Events have been Reviewed and Verified with Patient/Familyyes Allergy, Intolerance, Adverse Event: Allergies: No Known Allergies: Active Intolerances: Dilaudid: Drug, Nausea/Vomiting, Active Electronic Signatures: Felicitas Watson (MARITZA) (Signed 23-Nov-2018 07:29) Authored: Profile, Additional Information Last Updated: 23-Nov-2018 07:29 by Felicitas Watson (MARITZA) References: 1. Data Referenced From Patient Profile - Preop v2" 11/21/2018 8:21 AM Normal [facility] Preop Checkliston 11-23-2018 Preop Checklist Preop Checklist: Preop Checklist: Arrival [id number] Arrival Time07:00 NPO [id number] 06:30 NPO Commentsip of water to take protonix ID Band Onyes Allergy Bandno known allergies Consent Signedyes H&P Completeyes Anesthesia Assessment Completedyes SCD's Appliedno Denturesnot applicable Prostheticsnot applicable Hearing Aidsnot applicable Valuables Securedplaced in locker Glasses / Contactsleft in patient room Cardiovascular Assessment: Apicalregular Radial Pulsespalpable Pedal Pulsespalpable Extremitieswell perfused Respiratory Assessment: Respirationsunlabored Air Exchangeequal Breath Soundsclear Neurological Assessment: Level of Consciousnessalert Mobilitymoves all extremities Able to Express Selfyes Age Appropriateyes Emotional Statuscalm Preop Education: Surgical Site Infection Preventionn/a Language / Communication: Language / CommunicationEnglish Electronic Signatures: Felicitas Watson (RN) (Signed 23-Nov-2018 07:27) Authored: Preop Checklist Last Updated: 23-Nov-2018 07:27 by Felicitas Watson (RN) Normal [facility] Clinical Event Note-BL multi ple seizure ECT#13on 11-21-2018 Clinical Event Note-BL multiple seizure ECT#13 Event: Topic: BL multiple seizure ECT#13 Details: she said she not sure if she felt any better than last week although she felt better overall. still felt depressed daily most of time with severity 5 of 10. ten was worst. still had SI, but no plan or intent. memory was not good, but manageable. QIDS=14; MOCA=23 She was awake, alert, cooperative, and pleasant. good eye contact. oriented x3. speech was normal. affect was appropriate. mood - ok. denied having SI/HI/AVH during the interview. no delusional thought. I/J were fair. memory was ok. attention and concentration were adequate. Tolerated ECT well no complication Imp: bipolar I depression, severe - recovering Plan: ECT this wednesday and next Wednesday; reassess next wednesday. Alanis Cornejo MD. Electronic Signatures: Alanis Cornejo) (Signed 21-Nov-2018 09:30) Authored: Event Last Updated: 21-Nov-2018 09:30 by Alanis Cornejo) Normal [facility] Homegoing Instructionson Homegoing Instructions Additional Instructions: Medication Information: Medication Instructions Do not have anything by mouth after midnight the night before your treatment unless instructed otherwise. You may have clear liquids up until 6 hours prior to your appointment. Take the following medications with a sip of water in the morning prior to ECT: Protonix Do not take the following medication(s) after 4:00 PM the night before or morning of ECT: Athalia, klonopin Appointments: Service/Clinician NameECT- Please stop at Registration 10-15 minutes prior to your appointment time. Date/[id number] 07:[address] [facility], [address] [address] Third floor [phone] Appointment CommentPlease remember that we must have at least 24 hours notice if you need to cancel your appointment. If you cancel your appointment late or do not show for your appointment 3 times, no additional appointments will be scheduled. It is very important that you arrive for your appointment at or before the scheduled time. If you are more than 10 minutes late, there is a chance that we may have to cancel the appointment. Electronic Signatures: Lexy Hylton (RN) (Signed 21-Nov-2018 09:38) Authored: Additional Instructions Last Updated: 21-Nov-2018 09:38 by Lexy Hylton (MARITZA) [facility] Patient Profile - Preop v2on 11-21-2018 Patient Profile - Preop v2 Profile: Initial Info: How to be AddressedKate(1) Spoken Language PreferredEnglish (1) Source of Informationpatient Are you currently using the Personal Electronic Health Record or ASSET4 (1) Stated Reason for AdmissionECT [phone] Patient Belongingsremains with patient Patient Belongings Remaining with Patientclothing; cell phone/electronics; purse/wallet; turcios/credit card; vision aids Medications Brought to Hospitalno General Health: Weight in kg72.5 kilogram(s) Weight in yuq375.8 pound(s) Weight Methodstated Height in cm172.7 centimeter(s) Height in feet5 feet Height in inches8 inch(es) Height Methodstated BMI (kg/m2)24.308 square meter Patient or Family Member Reaction to Anesthesiano previous reaction Blood Avoidance/Restrictionsn one Previous Transfusion Reactionno Health Mgmt: Symptoms/Conditions Managed at Homebehavioral health; cardiovascular; gastrointestinal; HEENT (head, eyes, ears, nose, throat); musculoskeletal; neurological; endocrine Are You Currently Breastfeedingunable to answer Behavioral Health Symptoms/Conditionsbipo lar affective disorder; depression; anxiety; post traumatic stress Behavioral Management Strategiescounseling; medication therapy Behavioral Health Symptoms/Conditions CommentInitiated Electroconvulsive Therapy Cardiovascular Symptoms/Conditionsdysr hythmia Cardiovascular Management Strategiesmedication therapy Cardiovascular Symptoms/Conditions CommentA-fib Endocrine Symptoms/Conditions CommentMTHFR mutation Gastrointestinal Symptoms/Conditionsrefl ux/heartburn; constipation Gastrointestinal Management Strategiesmedication therapy Gastrointestinal Symptoms/Conditions CommentGERD HEENT Symptoms/Conditionsvisi on problem(s) HEENT Management Strategiesmedication therapy HEENT Symptoms/Conditions CommentEnvironmental allergens; stigmatism Musculoskeletal Symptoms/Conditions 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 Neurological Symptoms/Conditionshead trauma Neurological Management Strategiesmedication therapy Neurological Symptoms/Conditions Commentmigraines; hx epilepsy Are You no Barriers to Managing Healthfinancial resources Relationship/Environ: Lives Withparent(s); sibling(s)(1) Living Arrangementshouse(1) Resource/Environmental Concernsfinancial Anticipated [facility] Substance: Current or Former Substance Use never: Cigarette/Tobacco, e-Cigarette/Vaping YES: Alcohol, Street Drugs Alcohol Use Statuspast alcohol Alcohol Frequencymonthly or less Alcohol Last Usecouple years Street Drug/Inhalant/ Medication Use Statuscurrent street drug/inhalant/medicatio n abuse Street Drug/Medication/ Inhalant Typemarijuana Street Drug/Medication/ Inhalant Routesmoking Frequency of Street Drug/Medication/Inhalan t Usemonthly or less Risk Screens: Advance Directive Medicalno Advance Directive Information Givenpatient/family declined Advance Directive Mental Healthno; information given/requested Advance Directive Information Given (Mental Health)patient/family declined During the past month, have you often been bothered by feeling down, depressed or hopelessyes During the past month, have you often had little interest or pleasure in doing thingsyes Have you had any thoughts of harming yourselfyes Admits to having thoughts to self harm, pt has been superficially cutting the front of her left upper leg Have you had any thoughts of harming anyone elseno Suicide/Depression CommentContinues to have suicidal thoughts once a day. Says always has a plan. Patient is Able to be Assessed for Learningyes Factors Influencing Readiness to Learndepression; interest in learning Factors that Impact Ability to Learnnone Devices/Methods Used to Communicateglasses Learning Preferencesindividual instruction; computer/internet Cultural Considerationsnone Developmental Considerationsdevelopme ntal considerations ADHD Jew Considerationsnone Other learner availableno [place] RiskPatient location auto qualifies him/her for HIGH RISK. Are there any cultural, spiritual, baptist practices/values/needs that are important for us to knowno Pain Scalenumerical 0-10 Pain Scale Educationteaching provided Current Pain Level0 = None Acceptable Pain Level5 = Moderate Expression of Pain (nonverbal)none Lifestyle Changes/Adaptations in Response to Painno change Chronic Painno Information Review: Allergies, Home Meds and Significant Events have been Reviewed and Verified with Patient/Familyyes Allergy, Intolerance, Adverse Event: Allergies: No Known Allergies: Active Intolerances: Dilaudid: Drug, Nausea/Vomiting, Active Electronic Signatures: Jr Romero) (Signed 21-Nov-2018 08:23) Authored: Profile, Additional Information Last Updated: 21-Nov-2018 08:23 by Jr Romero (RN) References: 1. Data Referenced From Patient Profile - Preop v2" 11/18/2018 8:25 AM Normal [facility] Preop Checkliston 11-21-2018 Preop Checklist Preop Checklist: Preop Checklist: Arrival [id number] Arrival Time07:00 NPO [id number] 06:20 NPO Commentsip of water to take protonix ID Band Onyes Allergy Bandno known allergies Consent Signedyes H&P Completeyes Anesthesia Assessment Completedyes SCD's Appliedno Denturesnot applicable Prostheticsnot applicable Hearing Aidsnot applicable Valuables Securedplaced in locker Glasses / Contactsleft in patient room Cardiovascular Assessment: Apicalregular Radial Pulsespalpable Pedal Pulsespalpable Extremitieswell perfused Respiratory Assessment: Respirationsunlabored Air Exchangeequal Breath Soundsclear Neurological Assessment: Level of Consciousnessalert Mobilitymoves all extremities Able to Express Selfyes Age Appropriateyes Emotional Statuscalm Preop Education: Surgical Site Infection Preventionn/a Language / Communication: Language / CommunicationEnglish Electronic Signatures: Jr Romero) (Signed 21-Nov-2018 08:21) Authored: Preop Checklist Last Updated: 21-Nov-2018 08:21 by Jr Romero (RN) Normal [facility] Clinical Event Note-bilatera l ECT #12on 11-18-2018 Clinical Event Note-bilateral ECT #12 Event: Topic: bilateral ECT #12 Details: pt interviewed, chart and txment plan reviewed. Tolerated ECT well No complications Some slow improvement in mood, but remains with low energy and anhedonia No si/hi VISHNU completed, low acute risk to harm self Impression: Major depression, recurrent Plan ECT on Wednesday and reassess Electronic Signatures: Adriana Adames) (Signed 18-Nov-2018 10:14) Authored: Event Last Updated: 18-Nov-2018 10:14 by Adriana Adames) [facility] History and Physicalon 11-18 History and Physical History of Present Illness: /Lactating: Are You no (1) Are You Currently Breastfeedingunable to answer (1) Admission Reason: Bipolar for ECT HPI: 28 year old white female states she was first diagnosed with depression at 12 year old. States she was stable from [age] year old and then at 22 year old was diagnosed with Bipolar I. Patient states present depressive episode started a couple months back triggered by PTSD flare up. Admits to hospitalizations x 15 through the years with 3 SA, last hospitalization 02/2018. She also admits to being diagnosed with DIONE with panic attacks, PTSD, OCD, hx anorexia and ADHD. States she has been on multiple medical regimes through the years. Family history with depression, DIONE and extended family has personality disorder. Needs new H and P for ongoing ECT txment. No changes in health Comorbidities: Comorbid Conditionsatrial fibrillation Type of Atrial FibrillationParoxysmal Family History: Family History: mother living CVA, PE, Lupus 5 brother living - 1 with Crohn's, RA 2 with psoriasis 1 with autism 1 with seizure hx Social History: Social History: Smoking Statusnever smoker Alcohol Usedenies Drug Usehistory of abuse at 16 year old - not since Occupationdisability Social History - lives with family Allergies: No Known Allergies: Intolerances: Dilaudid: Nausea/Vomiting Medications Prior to Admission: see OMR. Review of Systems: Eyes: COMMENTS: glasses Cardiac: COMMENTS: P A fib - maintained metoprolol and asa Gastrointestinal: COMMENTS: GERD - occasional symptomatic Neurological: COMMENTS: migraines; hx seizure disorder until 15 year old off medications >10 years now; painful leg moving toes syndrome Psychiatric: COMMENTS: Bipolar; OCD; DIONE with panic attacks; PTSD; ADHD; hx anorexia; sleep paralysis and hallucinations Allergic/Immunologic: COMMENTS: defect MTHFR All Other Systems: All other systems reviewed and are negative Objective: Physical Exam: Constitutional: Alert orientated x 3 no acute distress pleasant and cooperative Eyes: PERRL ENMT: pharynx clear no erythema or exudate noted Head/Neck: normocephalic neck supple nontender trachea midline no palpable lymphadenopathy noted no carotid bruits noted Respiratory/Thorax: CTA without wheezes rales rhonchi heard respiratory rate regular and unlabored Cardiovascular: RR without murmur heard at this time Gastrointestinal: soft nontender no definitive masses noted Genitourinary: defer Musculoskeletal: no gross deformities moves all extremities without difficulty Extremities: no pedal edema noted DP pulses palpable Neurological: cranial nerves grossly intact Breast: defer Lymphatic: No significant lymphadenopathy Psychological: Appropriate mood and behavior Skin: warm and dry, good color, good turgor and texture Assessment and Plan: Assessment: No changes and health No new sxs Impression 1: Bipolar Plan for Impression 1: ECT Plan for Impression 2: records reviewed including any recent labs +/or EKG Signatures/Attestation/ Certification: Attending Provider Inpatient Certification StatementN/A - observation patient/other outpatient visits Electronic Signatures: Adriana Adames) (Signed 18-Nov-2018 09:43) Authored: History of Present Illness, Comorbidities, Family History, Social History, Allergies, Medications Prior to Admission, Review of Systems, Objective, Assessment and Plan, Signatures/Attestation/ Certification Last Updated: 18-Nov-2018 09:43 by Adriana Adames) References: 1. Data Referenced From Patient Profile - Preop v2" 11/18/2018 08:25 AM Normal [facility] Homegoing Instructionson Homegoing Instructions Additional Instructions: Medication Information: Medication Instructions Do not have anything by mouth after midnight the night before your treatment unless instructed otherwise. You may have clear liquids up until 6 hours prior to your appointment. Take the following medications with a sip of water in the morning prior to ECT: Protonix Do not take the following medication(s) after 4:00 PM the night before or morning of ECT: Athalia, klonopin Appointments: Service/Clinician NameECT- Please stop at Registration 10-15 minutes prior to your appointment time. Date/[id number] 07:[address] [facility], [address] [address] Third floor [phone] Appointment CommentPlease remember that we must have at least 24 hours notice if you need to cancel your appointment. If you cancel your appointment late or do not show for your appointment 3 times, no additional appointments will be scheduled. It is very important that you arrive for your appointment at or before the scheduled time. If you are more than 10 minutes late, there is a chance that we may have to cancel the appointment. Electronic Signatures: Lexy Hylton (RN) (Signed 18-Nov-2018 10:29) Authored: Additional Instructions Last Updated: 18-Nov-2018 10:29 by Lexy Hylton (MARITZA) [facility] Patient Profile - Preop v2on 11-18-2018 Patient Profile - Preop v2 Profile: Initial Info: How to be AddressedKate(1) Spoken Language PreferredEnglish (1) Source of Informationpatient Are you currently using the Personal Electronic Health Record or ASSET4 (1) Stated Reason for AdmissionECT Primary Contact Name and NumberErick Guajardo [phone] Patient Belongingsremains with patient Patient Belongings Remaining with Patientclothing; cell phone/electronics; purse/wallet; turcios/credit card; vision aids Medications Brought to Hospitalno General Health: Weight in kg72.5 kilogram(s) Weight in xyw627.8 pound(s) Weight Methodstated Height in cm172.7 centimeter(s) Height in feet5 feet Height in inches8 inch(es) Height Methodstated BMI (kg/m2)24.308 square meter Patient or Family Member Reaction to Anesthesiano previous reaction Blood Avoidance/Restrictionsn one Previous Transfusion Reactionno Health Mgmt: Symptoms/Conditions Managed at Homebehavioral health; cardiovascular; gastrointestinal; HEENT (head, eyes, ears, nose, throat); musculoskeletal; neurological; endocrine Are You Currently Breastfeedingunable to answer Behavioral Health Symptoms/Conditionsbipo lar affective disorder; depression; anxiety; post traumatic stress Behavioral Management Strategiescounseling; medication therapy Behavioral Health Symptoms/Conditions CommentInitiated Electroconvulsive Therapy Cardiovascular Symptoms/Conditionsdysr hythmia Cardiovascular Management Strategiesmedication therapy Cardiovascular Symptoms/Conditions CommentA-fib Endocrine Symptoms/Conditions CommentMTHFR mutation Gastrointestinal Symptoms/Conditionsrefl ux/heartburn; constipation Gastrointestinal Management Strategiesmedication therapy Gastrointestinal Symptoms/Conditions CommentGERD HEENT Symptoms/Conditionsvisi on problem(s) HEENT Management Strategiesmedication therapy HEENT Symptoms/Conditions CommentEnvironmental allergens; stigmatism Musculoskeletal Symptoms/Conditions 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 Neurological Symptoms/Conditionshead trauma Neurological Management Strategiesmedication therapy Neurological Symptoms/Conditions Commentmigraines; hx epilepsy Are You no Barriers to Managing Healthfinancial resources Relationship/Environ: Lives Withparent(s); sibling(s)(1) Living Arrangementshouse(1) Resource/Environmental Concernsfinancial Anticipated [facility] Substance: Current or Former Substance Use never: Cigarette/Tobacco, e-Cigarette/Vaping YES: Alcohol, Street Drugs Alcohol Use Statuspast alcohol Alcohol Frequencymonthly or less Alcohol Last Usecouple years Street Drug/Inhalant/ Medication Use Statuscurrent street drug/inhalant/medicatio n abuse Street Drug/Medication/ Inhalant Typemarijuana Street Drug/Medication/ Inhalant Routesmoking Frequency of Street Drug/Medication/Inhalan t Usemonthly or less Risk Screens: Advance Directive Medicalno Advance Directive Information Givenpatient/family declined Advance Directive Mental Healthno; information given/requested Advance Directive Information Given (Mental Health)patient/family declined During the past month, have you often been bothered by feeling down, depressed or hopelessyes During the past month, have you often had little interest or pleasure in doing thingsyes Have you had any thoughts of harming yourselfyes Admits to having thoughts to self harm, pt has been superficially cutting the front of her left upper leg Have you had any thoughts of harming anyone elseno Suicide/Depression CommentContinues to have suicidal thoughts once a day. Says always has a plan. Patient is Able to be Assessed for Learningyes Factors Influencing Readiness to Learndepression; interest in learning Factors that Impact Ability to Learnnone Devices/Methods Used to Communicateglasses Learning Preferencesindividual instruction; computer/internet Cultural Considerationsnone Developmental Considerationsdevelopme ntal considerations ADHD Jew Considerationsnone Other learner availableno [place] RiskPatient location auto qualifies him/her for HIGH RISK. Are there any cultural, spiritual, baptist practices/values/needs that are important for us to knowno Pain Scalenumerical 0-10 Pain Scale Educationteaching provided Current Pain Level0 = None Acceptable Pain Level5 = Moderate Expression of Pain (nonverbal)none Lifestyle Changes/Adaptations in Response to Painno change Chronic Painno Information Review: Allergies, Home Meds and Significant Events have been Reviewed and Verified with Patient/Familyyes Allergy, Intolerance, Adverse Event: Allergies: No Known Allergies: Active Intolerances: Dilaudid: Drug, Nausea/Vomiting, Active Electronic Signatures: Jr RomeroRN) (Signed 18-Nov-2018 08:26) Authored: Profile, Additional Information Last Updated: 18-Nov-2018 08:26 by Jr Romero (RN) References: 1. Data Referenced From Patient Profile - Preop v2" 11/16/2018 7:49 AM Normal [facility] Preop Checkliston 11-18-2018 Preop Checklist Preop Checklist: Preop Checklist: Arrival [id number] Arrival Time08:24 NPO [id number] 06:00 NPO Commentsip of water to take protonix ID Band Onyes Allergy Bandno known allergies Consent Signedyes H&P Completeyes Anesthesia Assessment Completedyes SCD's Appliedno Denturesnot applicable Prostheticsnot applicable Hearing Aidsnot applicable Valuables Securedplaced in locker Glasses / Contactsleft in patient room Cardiovascular Assessment: Apicalregular Radial Pulsespalpable Pedal Pulsespalpable Extremitieswell perfused Respiratory Assessment: Respirationsunlabored Air Exchangeequal Breath Soundsclear Neurological Assessment: Level of Consciousnessalert Mobilitymoves all extremities Able to Express Selfyes Age Appropriateyes Emotional Statuscalm Preop Education: Surgical Site Infection Preventionn/a Language / Communication: Language / CommunicationEnglish Electronic Signatures: Jr RomeroRN) (Signed 18-Nov-2018 08:25) Authored: Preop Checklist Last Updated: 18-Nov-2018 08:25 by Jr Romero (MARITZA) Normal [facility] Clinical Event Note-BL multi ple seizure ECT #11on 11-16-2018 Clinical Event Note-BL multiple seizure ECT #11 Event: Topic: BL multiple seizure ECT #11 Details: She said she felt a little more depressed without a reason. she had restarted her meds again. scored her depression 7 of 10. ten was the worst. had SI, but no plan or intent. memory was not good, but able to handle. She was awake, alert, cooperative, and pleasant. good eye contact. oriented x3. speech was normal. affect was appropriate. mood - ok. denied having SI/HI/AVH during the interview. no delusional thought. I/J were fair. memory was ok. attention and concentration were adequate. Tolerated ECT well no complication Imp: bipolar depression, severe Plan: continue acute ECT 3 times a week. Alanis Cornejo MD. Electronic Signatures: Alanis Cornejo) (Signed 16-Nov-2018 08:49) Authored: Event Last Updated: 16-Nov-2018 08:49 by Alanis Cornejo) [facility] Homegoing Instructionson Homegoing Instructions Additional Instructions: Medication Information: Medication Instructions Do not have anything by mouth after midnight the night before your treatment unless instructed otherwise. You may have clear liquids up until 6 hours prior to your appointment. Take the following medications with a sip of water in the morning prior to ECT: Protonix Do not take the following medication(s) after 4:00 PM the night before or morning of ECT: Athalia, klonopin Appointments: Service/Clinician NameECT- Please stop at Registration 10-15 minutes prior to your appointment time. Date/[id number] 07:[address] [facility], [address] [facility]. Third floor [phone] Appointment CommentPlease remember that we must have at least 24 hours notice if you need to cancel your appointment. If you cancel your appointment late or do not show for your appointment 3 times, no additional appointments will be scheduled. It is very important that you arrive for your appointment at or before the scheduled time. If you are more than 10 minutes late, there is a chance that we may have to cancel the appointment. Electronic Signatures: Lexy Hylton) (Signed 16-Nov-2018 08:52) Authored: Additional Instructions Last Updated: 16-Nov-2018 08:52 by Lexy Hylton) [facility] Patient Profile - Preop v2on 11-16-2018 Patient Profile - Preop v2 Profile: Initial Info: How to be AddressedKate(1) Spoken Language PreferredEnglish (1) Source of Informationpatient Are you currently using the Personal Electronic Health Record or ASSET4 (1) Stated Reason for AdmissionECT Primary Contact Name and NumberErick Guajardo [phone] Patient Belongingsremains with patient Patient Belongings Remaining with Patientclothing; cell phone/electronics; purse/wallet; turcios/credit card; vision aids Medications Brought to Hospitalno General Health: Weight in kg72.5 kilogram(s) Weight in yug370.8 pound(s) Weight Methodstated Height in cm172.7 centimeter(s) Height in feet5 feet Height in inches8 inch(es) Height Methodstated BMI (kg/m2)24.308 square meter Patient or Family Member Reaction to Anesthesiano previous reaction Blood Avoidance/Restrictionsn one Previous Transfusion Reactionno Health Mgmt: Symptoms/Conditions Managed at Homebehavioral health; cardiovascular; gastrointestinal; HEENT (head, eyes, ears, nose, throat); musculoskeletal; neurological; endocrine Are You Currently Breastfeedingunable to answer Behavioral Health Symptoms/Conditionsbipo lar affective disorder; depression; anxiety; post traumatic stress Behavioral Management Strategiescounseling; medication therapy Behavioral Health Symptoms/Conditions CommentInitiated Electroconvulsive Therapy Cardiovascular Symptoms/Conditionsdysr hythmia Cardiovascular Management Strategiesmedication therapy Cardiovascular Symptoms/Conditions CommentA-fib Endocrine Symptoms/Conditions CommentMTHFR mutation Gastrointestinal Symptoms/Conditionsrefl ux/heartburn; constipation Gastrointestinal Management Strategiesmedication therapy Gastrointestinal Symptoms/Conditions CommentGERD HEENT Symptoms/Conditionsvisi on problem(s) HEENT Management Strategiesmedication therapy HEENT Symptoms/Conditions CommentEnvironmental allergens; stigmatism Musculoskeletal Symptoms/Conditions 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 Neurological Symptoms/Conditionshead trauma Neurological Management Strategiesmedication therapy Neurological Symptoms/Conditions Commentmigraines; hx epilepsy Are You no Barriers to Managing Healthfinancial resources Relationship/Environ: Lives Withparent(s); sibling(s)(1) Living Arrangementshouse(1) Resource/Environmental Concernsfinancial [facility]ipated [facility] Substance: Current or Former Substance Use never: Cigarette/Tobacco, e-Cigarette/Vaping YES: Alcohol, Street Drugs Alcohol Use Statuspast alcohol Alcohol Frequencymonthly or less Alcohol Last Usecouple years Street Drug/Inhalant/ Medication Use Statuscurrent street drug/inhalant/medicatio n abuse Street Drug/Medication/ Inhalant Typemarijuana Street Drug/Medication/ Inhalant Routesmoking Frequency of Street Drug/Medication/Inhalan t Usemonthly or less Risk Screens: Advance Directive Medicalno Advance Directive Information Givenpatient/family declined Advance Directive Mental Healthno; information given/requested Advance Directive Information Given (Mental Health)patient/family declined During the past month, have you often been bothered by feeling down, depressed or hopelessyes During the past month, have you often had little interest or pleasure in doing thingsyes Have you had any thoughts of harming yourselfyes Admits to having thoughts to self harm, pt has been superficially cutting the front of her left upper leg Have you had any thoughts of harming anyone elseno Suicide/Depression CommentContinues to have suicidal thoughts once a day. Says always has a plan. Patient is Able to be Assessed for Learningyes Factors Influencing Readiness to Learndepression; interest in learning Factors that Impact Ability to Learnnone Devices/Methods Used to Communicateglasses Learning Preferencesindividual instruction; computer/internet Cultural Considerationsnone Developmental Considerationsdevelopme ntal considerations ADHD Jew Considerationsnone Other learner availableno [place] RiskPatient location auto qualifies him/her for HIGH RISK. Are there any cultural, spiritual, baptist practices/values/needs that are important for us to knowno Pain Scalenumerical 0-10 Pain Scale Educationteaching provided Current Pain Level0 = None Acceptable Pain Level5 = Moderate Expression of Pain (nonverbal)none Lifestyle Changes/Adaptations in Response to Painno change Chronic Painno Information Review: Allergies, Home Meds and Significant Events have been Reviewed and Verified with Patient/Familyyes Allergy, Intolerance, Adverse Event: Allergies: No Known Allergies: Active Intolerances: Dilaudid: Drug, Nausea/Vomiting, Active Electronic Signatures: Felicitas Watson (MARITZA) (Signed 16-Nov-2018 07:50) Authored: Profile, Additional Information Last Updated: 16-Nov-2018 07:50 by Felicitas Watson (MARITZA) References: 1. Data Referenced From Patient Profile - Preop v2" 11/14/2018 7:16 AM Normal [facility] Preop Checkliston 11-16-2018 Preop Checklist Preop Checklist: Preop Checklist: Arrival [id number] Arrival Time07:20 NPO [id number] 06:00 NPO Commentsip of water to take protonix ID Band Onyes Allergy Bandno known allergies Consent Signedyes H&P Completeyes Anesthesia Assessment Completedyes SCD's Appliedno Electronic Signatures: Felicitas Watson) (Signed 16-Nov-2018 07:49) Authored: Preop Checklist Last Updated: 16-Nov-2018 07:49 by Felicitas Watson (RN) Normal [facility] Clinical Event Note-BL multi ple seizure ECT #10on 11-14-2018 Clinical Event Note-BL multiple seizure ECT #10 Event: Topic: BL multiple seizure ECT #10 Details: She said she felt a little worse because she ran out of "all" her medications for 3 days. she felt a little better before she ran out of her meds. she still had SI with a plan at nighttime, but no intent. still felt depressed most of time with mild to moderate sx. no memory concern. She said she went to an ER last Wednesday night because she felt her heart was fast and irregular. She said she was told that nothing was remarkable and discharged [place]ritney. QIDS=11; MOCA=22 She was awake, alert, cooperative, and pleasant. good eye contact. oriented x3. speech was normal. affect was appropriate. mood - ok. denied having SI/HI/AVH during the interview. no delusional thought. I/J were fair. memory was ok. attention and concentration were adequate. Tolerated ECT well no complication Imp: bipolar I depression, severe - revering Plan: continue acute ECT 3 times a week; reassess next Wednesday. Alanis Cornejo MD. Electronic Signatures: Alanis Cornejo) (Signed 14-Nov-2018 08:34) Authored: Event Last Updated: 14-Nov-2018 08:34 by Alanis Cornejo) Normal [facility] Homegoing Instructionson Homegoing Instructions Additional Instructions: Medication Information: Medication Instructions Do not have anything by mouth after midnight the night before your treatment unless instructed otherwise. You may have clear liquids up until 6 hours prior to your appointment. Take the following medications with a sip of water in the morning prior to ECT: Protonix Do not take the following medication(s) after 4:00 PM the night before or morning of ECT: Athalia, klonopin Appointments: Service/Clinician NameECT- Please stop at Registration 10-15 minutes prior to your appointment time. Date/[id number] 06:[address] [facility], [address] . Third floor [phone] Appointment CommentPlease remember that we must have at least 24 hours notice if you need to cancel your appointment. If you cancel your appointment late or do not show for your appointment 3 times, no additional appointments will be scheduled. It is very important that you arrive for your appointment at or before the scheduled time. If you are more than 10 minutes late, there is a chance that we may have to cancel the appointment. Electronic Signatures: Lexy Hylton) (Signed 14-Nov-2018 08:57) Authored: Additional Instructions Last Updated: 14-Nov-2018 08:57 by Lexy Hylton) [facility] Patient Profile - Preop v2on 11-14-2018 Patient Profile - Preop v2 Profile: Initial Info: How to be AddressedKate(1) Spoken Language PreferredEnglish (1) Source of Informationpatient Are you currently using the Personal Electronic Health Record or ASSET4 (1) Stated Reason for AdmissionECT Primary Contact Name and NumberErick Guajardo [phone] Patient Belongingsremains with patient Patient Belongings Remaining with Patientclothing; cell phone/electronics; purse/wallet; turcios/credit card; vision aids Medications Brought to Hospitalno General Health: Weight in kg72.5 kilogram(s) Weight in lsd470 pound(s) Weight Methodstated Height in cm172.7 centimeter(s) Height in feet5 feet Height in inches8 inch(es) Height Methodstated BMI (kg/m2)24.308 square meter Patient or Family Member Reaction to Anesthesiano previous reaction Blood Avoidance/Restrictionsn one Previous Transfusion Reactionno Health Mgmt: Symptoms/Conditions Managed at Homebehavioral health; cardiovascular; gastrointestinal; HEENT (head, eyes, ears, nose, throat); musculoskeletal; neurological; endocrine Are You Currently Breastfeedingunable to answer Behavioral Health Symptoms/Conditionsbipo lar affective disorder; depression; anxiety; post traumatic stress Behavioral Management Strategiescounseling; medication therapy Behavioral Health Symptoms/Conditions CommentInitiated Electroconvulsive Therapy Cardiovascular Symptoms/Conditionsdysr hythmia Cardiovascular Management Strategiesmedication therapy Cardiovascular Symptoms/Conditions CommentA-fib Endocrine Symptoms/Conditions CommentMTHFR mutation Gastrointestinal Symptoms/Conditionsrefl ux/heartburn; constipation Gastrointestinal Management Strategiesmedication therapy Gastrointestinal Symptoms/Conditions CommentGERD HEENT Symptoms/Conditionsvisi on problem(s) HEENT Management Strategiesmedication therapy HEENT Symptoms/Conditions CommentEnvironmental allergens; stigmatism Musculoskeletal Symptoms/Conditions 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 Neurological Symptoms/Conditionshead trauma Neurological Management Strategiesmedication therapy Neurological Symptoms/Conditions Commentmigraines; hx epilepsy Are You no Barriers to Managing Healthfinancial resources Relationship/Environ: Lives Withparent(s); sibling(s)(1) Living Arrangementshouse(1) Resource/Environmental Concernsfinancial Anticipated [facility] Substance: Current or Former Substance Use never: Cigarette/Tobacco, e-Cigarette/Vaping, Street Drugs YES: Alcohol Alcohol Use Statuspast alcohol Alcohol Frequencymonthly or less Alcohol Last Usecouple years Risk Screens: Advance Directive Medicalno Advance Directive Information Givenpatient/family declined Advance Directive Mental Healthno; information given/requested Advance Directive Information Given (Mental Health)patient/family declined During the past month, have you often been bothered by feeling down, depressed or hopelessyes During the past month, have you often had little interest or pleasure in doing thingsyes Have you had any thoughts of harming yourselfyes Admits to having thoughts to self harm, pt has been superficially cutting the front of her left upper leg Have you had any thoughts of harming anyone elseno Suicide/Depression CommentContinues to have suicidal thoughts once a day. Says always has a plan. Patient is Able to be Assessed for Learningyes Factors Influencing Readiness to Learndepression; interest in learning Factors that Impact Ability to Learnnone Devices/Methods Used to Communicateglasses Learning Preferencesindividual instruction; computer/internet Cultural Considerationsnone Developmental Considerationsdevelopme ntal considerations ADHD Jew Considerationsnone Other learner availableno [place] RiskPatient location auto qualifies him/her for HIGH RISK. Are there any cultural, spiritual, baptist practices/values/needs that are important for us to knowno Pain Scalenumerical 0-10 Pain Scale Educationteaching provided Current Pain Level0 = None Acceptable Pain Level5 = Moderate Expression of Pain (nonverbal)none Lifestyle Changes/Adaptations in Response to Painno change Chronic Painno Information Review: Allergies, Home Meds and Significant Events have been Reviewed and Verified with Patient/Familyyes Allergy, Intolerance, Adverse Event: Allergies: No Known Allergies: Active Intolerances: Dilaudid: Drug, Nausea/Vomiting, Active Electronic Signatures: Jr Romero) (Signed 14-Nov-2018 07:19) Authored: Profile, Additional Information Last Updated: 14-Nov-2018 07:19 by Jr Romero (RN) References: 1. Data Referenced From Patient Profile - Preop v2" 11/11/2018 8:10 AM [facility] Preop Checkliston 11-14-2018 Preop Checklist Preop Checklist: Preop Checklist: Arrival [id number] Arrival Time07:15 NPO [id number] 18:00 ID Band Onyes Allergy Bandno known allergies Consent Signedyes H&P Completeyes Anesthesia Assessment Completedyes SCD's Appliedno Electronic Signatures: Jr Romero (RN) (Signed 14-Nov-2018 07:16) Authored: Preop Checklist Last Updated: 14-Nov-2018 07:16 by Jr Romero (RN) [facility] Clinical Event Note-Bilatera l ECTon 11-11-2018 Clinical Event Note-Bilateral ECT Event: Topic: Bilateral ECT Details: Pt interviewed, chart and txment plan reviewed. Mood is slightly although not significantly improved. Sleep, appetite, energy and interest are all still decreased no si/hi tolerated ECT well No complications Impression: Major depression, recurrent severe Plan: ECT on Wednesday and reassess Electronic Signatures: Adriana Adames) (Signed 11-Nov-2018 09:30) Authored: Event Last Updated: 11-Nov-2018 09:30 by Adriana Adames) [facility] Homegoing Instructionson Homegoing Instructions Additional Instructions: Medication Information: Medication Instructions Do not have anything by mouth after midnight the night before your treatment unless instructed otherwise. You may have clear liquids up until 6 hours prior to your appointment. Take the following medications with a sip of water in the morning prior to ECT: Protonix Do not take the following medication(s) after 4:00 PM the night before or morning of ECT: Athalia, klonopin Appointments: Service/Clinician NameECT- Please stop at Registration 10-15 minutes prior to your appointment time. Date/[id number] 06:[address] [facility], [address] floor [phone] Appointment CommentPlease remember that we must have at least 24 hours notice if you need to cancel your appointment. If you cancel your appointment late or do not show for your appointment 3 times, no additional appointments will be scheduled. It is very important that you arrive for your appointment at or before the scheduled time. If you are more than 10 minutes late, there is a chance that we may have to cancel the appointment. Electronic Signatures: Lexy Hylton (RN) (Signed 11-Nov-2018 09:36) Authored: Additional Instructions Last Updated: 11-Nov-2018 09:36 by Lexy Hylton (MARITZA) [facility] Patient Profile - Preop v2on 11-11-2018 Patient Profile - Preop v2 Profile: Initial Info: How to be AddressedKate(1) Spoken Language PreferredEnglish (1) Source of Informationpatient Are you currently using the Personal Electronic Health Record or ASSET4 (1) Stated Reason for AdmissionECT Primary Contact Name and NumberErick Guajardo [phone] Patient Belongingsremains with patient Patient Belongings Remaining with Patientclothing; cell phone/electronics; purse/wallet; turcios/credit card; vision aids Medications Brought to Hospitalno General Health: Weight in kg70.3 kilogram(s) Weight in qmb226.9 pound(s) Weight Methodstated Height in cm172.7 centimeter(s) Height in feet5 feet Height in inches8 inch(es) Height Methodstated BMI (kg/m2)23.57 square meter Patient or Family Member Reaction to Anesthesiano previous reaction Blood Avoidance/Restrictionsn one Previous Transfusion Reactionno Health Mgmt: Symptoms/Conditions Managed at Homebehavioral health; cardiovascular; gastrointestinal; HEENT (head, eyes, ears, nose, throat); musculoskeletal; neurological; endocrine Are You Currently Breastfeedingunable to answer Behavioral Health Symptoms/Conditionsbipo lar affective disorder; depression; anxiety; post traumatic stress Behavioral Management Strategiescounseling; medication therapy Behavioral Health Symptoms/Conditions CommentInitiated Electroconvulsive Therapy Cardiovascular Symptoms/Conditionsdysr hythmia Cardiovascular Management Strategiesmedication therapy Cardiovascular Symptoms/Conditions CommentA-fib Endocrine Symptoms/Conditions CommentMTHFR mutation Gastrointestinal Symptoms/Conditionsrefl ux/heartburn; constipation Gastrointestinal Management Strategiesmedication therapy Gastrointestinal Symptoms/Conditions CommentGERD HEENT Symptoms/Conditionsvisi on problem(s) HEENT Management Strategiesmedication therapy HEENT Symptoms/Conditions CommentEnvironmental allergens; stigmatism Musculoskeletal Symptoms/Conditions 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 Neurological Symptoms/Conditionshead trauma Neurological Management Strategiesmedication therapy Neurological Symptoms/Conditions Commentmigraines; hx epilepsy Are You no Barriers to Managing Healthfinancial resources Relationship/Environ: Lives Withparent(s); sibling(s)(1) Living Arrangementshouse(1) Resource/Environmental Concernsfinancial [facility]ticipated [facility] Substance: Current or Former Substance Use never: Cigarette/Tobacco, e-Cigarette/Vaping, Street Drugs YES: Alcohol Alcohol Use Statuspast alcohol Alcohol Frequencymonthly or less Alcohol Last Usecouple years Risk Screens: Advance Directive Medicalno Advance Directive Information Givenpatient/family declined Advance Directive Mental Healthno; information given/requested Advance Directive Information Given (Mental Health)patient/family declined During the past month, have you often been bothered by feeling down, depressed or hopelessyes During the past month, have you often had little interest or pleasure in doing thingsyes Have you had any thoughts of harming yourselfyes Admits to having thoughts to self harm, pt has been superficially cutting the front of her left upper leg Have you had any thoughts of harming anyone elseno Suicide/Depression Commentpatient currently denies plan/intent, but continues to have suicidal thoughts several times a day Patient is Able to be Assessed for Learningyes Factors Influencing Readiness to Learndepression; interest in learning Factors that Impact Ability to Learnnone Devices/Methods Used to Communicateglasses Learning Preferencesindividual instruction; computer/internet Cultural Considerationsnone Developmental Considerationsdevelopme ntal considerations ADHD Jew Considerationsnone Other learner availableno [place] RiskPatient location auto qualifies him/her for HIGH RISK. Are there any cultural, spiritual, baptist practices/values/needs that are important for us to knowno Pain Scalenumerical 0-10 Pain Scale Educationteaching provided Current Pain Level0 = None Acceptable Pain Level5 = Moderate Expression of Pain (nonverbal)none Lifestyle Changes/Adaptations in Response to Painno change Chronic Painno Information Review: Allergies, Home Meds and Significant Events have been Reviewed and Verified with Patient/Familyyes Allergy, Intolerance, Adverse Event: Allergies: No Known Allergies: Active Intolerances: Dilaudid: Drug, Nausea/Vomiting, Active Electronic Signatures: Eber Brown (RN) (Signed 11-Nov-2018 08:13) Authored: Profile, Additional Information Last Updated: 11-Nov-2018 08:13 by Eber Brown (RN) References: 1. Data Referenced From Patient Profile - Preop v2" 11/09/2018 10:17 AM Normal [facility] Preop Checkliston 11-11-2018 Preop Checklist Preop Checklist: Preop Checklist: Arrival [id number] Arrival Time07:40 NPO [id number] 19:00 ID Band Onyes Allergy Bandno known allergies Consent Signedpending H&P Completeyes Anesthesia Assessment Completedyes SCD's Appliedno Electronic Signatures: Eber Brown) (Signed 11-Nov-2018 08:10) Authored: Preop Checklist Last Updated: 11-Nov-2018 08:10 by Eber Brown (RN) [facility] Clinical Event Note-BL Multi ple seizure ECT#8on 11-09-2018 Clinical Event Note-BL Multiple seizure ECT#8 Event: Topic: BL Multiple seizure ECT#8 Details: She said she did not feel much different compared to this past Wednesday. still felt depressed most of time with 6-7 of 10 severity. ten was worst. still felt hopeless and helpless on and off. still had SI with a plan at nighttime, but no intent because of her family. no memory concern so far. She agreed to add ketamine bolus 50 mg today. The dosage was calculated according to her body weight of 72 kg and ketamine 0.75 mg/kg as studied previously for non-ECT patients. She was awake, alert, cooperative, and pleasant. good eye contact. oriented x3. speech was normal. affect was appropriate. mood - ok. denied having SI/HI/AVH during the interview. no delusional thought. I/J were fair. memory was ok. attention and concentration were adequate. Tolerated ECT well no complication Imp: bipolar I depression, severe Plan: continue acute ECT 3 times a week with ketamine 50 mg, IV if she tolerates. Alanis Cornejo MD. Electronic Signatures: Alanis Cornejo) (Signed 09-Nov-2018 10:50) Authored: Event Last Updated: 09-Nov-2018 10:50 by Alanis Cornejo) Normal [facility] Homegoing Instructionson Homegoing Instructions Additional Instructions: Medication Information: Medication Instructions Do not have anything by mouth after midnight the night before your treatment unless instructed otherwise. You may have clear liquids up until 6 hours prior to your appointment. Take the following medications with a sip of water in the morning prior to ECT: Protonix Do not take the following medication(s) after 4:00 PM the night before or morning of ECT: Athalia, klonopin Appointments: Service/Clinician NameECT- Please stop at Registration 10-15 minutes prior to your appointment time. Date/[id number] 07:[address] [facility], [address] [address] floor [phone] Appointment CommentPlease remember that we must have at least 24 hours notice if you need to cancel your appointment. If you cancel your appointment late or do not show for your appointment 3 times, no additional appointments will be scheduled. It is very important that you arrive for your appointment at or before the scheduled time. If you are more than 10 minutes late, there is a chance that we may have to cancel the appointment. Electronic Signatures: Lexy Hylton (MARITZA) (Signed 09-Nov-2018 11:20) Authored: Additional Instructions Last Updated: 09-Nov-2018 11:20 by Lexy Hylton) [facility] Patient Profile - Preop v2on 11-09-2018 Patient Profile - Preop v2 Profile: Initial Info: How to be AddressedKate(1) Spoken Language PreferredEnglish (1) Source of Informationpatient Are you currently using the Personal Electronic Health Record or ASSET4 (1) Stated Reason for AdmissionECT Primary Contact Name and NumberErick Guajardo [phone] Patient Belongingsremains with patient Patient Belongings Remaining with Patientclothing; cell phone/electronics; purse/wallet; turcios/credit card; vision aids Medications Brought to Hospitalno General Health: Weight in kg70.3 kilogram(s) Weight in cov189.9 pound(s) Weight Methodstated Height in cm172.7 centimeter(s) Height in feet5 feet Height in inches8 inch(es) Height Methodstated BMI (kg/m2)23.57 square meter Patient or Family Member Reaction to Anesthesiano previous reaction Blood Avoidance/Restrictionsn one Previous Transfusion Reactionno Health Mgmt: Symptoms/Conditions Managed at Homebehavioral health; cardiovascular; gastrointestinal; HEENT (head, eyes, ears, nose, throat); musculoskeletal; neurological; endocrine Are You Currently Breastfeedingunable to answer Behavioral Health Symptoms/Conditionsbipo lar affective disorder; depression; anxiety; post traumatic stress Behavioral Management Strategiescounseling; medication therapy Behavioral Health Symptoms/Conditions CommentInitiated Electroconvulsive Therapy Cardiovascular Symptoms/Conditionsdysr hythmia Cardiovascular Management Strategiesmedication therapy Cardiovascular Symptoms/Conditions CommentA-fib Endocrine Symptoms/Conditions CommentMTHFR mutation Gastrointestinal Symptoms/Conditionsrefl ux/heartburn; constipation Gastrointestinal Management Strategiesmedication therapy Gastrointestinal Symptoms/Conditions CommentGERD HEENT Symptoms/Conditionsvisi on problem(s) HEENT Management Strategiesmedication therapy HEENT Symptoms/Conditions CommentEnvironmental allergens; stigmatism Musculoskeletal Symptoms/Conditions 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 Neurological Symptoms/Conditionshead trauma Neurological Management Strategiesmedication therapy Neurological Symptoms/Conditions Commentmigraines; hx epilepsy Are You no Barriers to Managing Healthfinancial resources Relationship/Environ: Lives Withparent(s); sibling(s)(1) Living Arrangementshouse(1) Resource/Environmental Concernsfinancial [facility] Substance: Current or Former Substance Use never: Cigarette/Tobacco, e-Cigarette/Vaping, Street Drugs YES: Alcohol Alcohol Use Statuspast alcohol Alcohol Frequencymonthly or less Alcohol Last Usecouple years Risk Screens: Advance Directive Medicalno Advance Directive Information Givenpatient/family declined Advance Directive Mental Healthno; information given/requested Advance Directive Information Given (Mental Health)patient/family declined During the past month, have you often been bothered by feeling down, depressed or hopelessyes During the past month, have you often had little interest or pleasure in doing thingsyes Have you had any thoughts of harming yourselfyes Admits to having thoughts to self harm, pt has been superficially cutting the front of her left upper leg Have you had any thoughts of harming anyone elseno Suicide/Depression Commentpatient currently denies plan/intent, but continues to have suicidal thoughts several times a day Patient is Able to be Assessed for Learningyes Factors Influencing Readiness to Learndepression; interest in learning Factors that Impact Ability to Learnnone Devices/Methods Used to Communicateglasses Learning Preferencesindividual instruction; computer/internet Cultural Considerationsnone Developmental Considerationsdevelopme ntal considerations ADHD Jew Considerationsnone Other learner availableno [place] RiskPatient location auto qualifies him/her for HIGH RISK. Are there any cultural, spiritual, baptist practices/values/needs that are important for us to knowno Pain Scalenumerical 0-10 Pain Scale Educationteaching provided Current Pain Level0 = None Acceptable Pain Level5 = Moderate Expression of Pain (nonverbal)none Lifestyle Changes/Adaptations in Response to Painno change Chronic Painno Information Review: Allergies, Home Meds and Significant Events have been Reviewed and Verified with Patient/Familyyes Allergy, Intolerance, Adverse Event: Allergies: No Known Allergies: Active Intolerances: Dilaudid: Drug, Nausea/Vomiting, Active Electronic Signatures: Lexy Hylton (RN) (Signed 09-Nov-2018 10:20) Authored: Profile, Additional Information Last Updated: 09-Nov-2018 10:20 by Lexy Hylton (MARITZA) References: 1. Data Referenced From Patient Profile - Preop v2" 11/07/2018 8:55 AM Normal [facility] Preop Checkliston 11-09-2018 Preop Checklist Preop Checklist: Preop Checklist: Arrival [id number] Arrival Time09:15 Procedure TypeECT NPO [id number] 21:00 NPO Commentsip with med this AM ID Band Onyes Allergy Bandyes Consent Signedyes H&P Completeyes Anesthesia Assessment Completedyes EKG Performednot ordered Chest X-Ray Performednot ordered Chlorhexadine Bath Givennot applicable Hair Washednot applicable Soap and water bath with hair shampoo the night before surgerynot applicable SCD's Appliednot applicable JAYNA Hose Appliednot ordered Denturesnot applicable Prostheticsnot applicable Hearing Aidsnot applicable Valuables Securedplaced in locker Glasses / Contactsplaced in locker Bowel Prepno Cardiovascular Assessment: Apicalregular Radial Pulsespalpable Extremitieswarm Respiratory Assessment: Respirationsunlabored regular Air Exchangeequal, good Breath Soundsclear Neurological Assessment: Level of Consciousnessoriented, alert Mobilitymoves all extremities Able to Express Selfyes Age Appropriateyes Emotional Statusanxious Preop Education: Surgical Site Infection Preventionno n/a Pain Scales and Managementyes Language / Communication: Language / CommunicationEnglish Electronic Signatures: Lexy Hylton (RN) (Signed 09-Nov-2018 10:17) Authored: Preop Checklist Last Updated: 09-Nov-2018 10:17 by eLxy Hylton (RN) [facility] Clinical Event Note-BL multi ple seizure ECT#7on 11-07-2018 Clinical Event Note-BL multiple seizure ECT#7 Event: Topic: BL multiple seizure ECT#7 Details: She said she might feel a little better before today's ECT, but not sure. still felt depressed most of time with mild to moderate sx. still had SI, but no plan or intent. no HI/AVH. no memory concern. QIDS=11; MOCA=24 She was awake, alert, cooperative, and pleasant. good eye contact. oriented x3. speech was normal. affect was appropriate. mood - ok. denied having SI/HI/AVH during the interview. no delusional thought. I/J were fair. memory was ok. attention and concentration were adequate. Tolerated ECT well no complication Imp: bipolar I depression, severe - recovering Plan: continue acute ECT 3 times a week; reassess next Wednesday. Alanis Cornejo MD. Electronic Signatures: Alanis Cornejo) (Signed 07-Nov-2018 10:03) Authored: Event Last Updated: 07-Nov-2018 10:03 by Alanis Cornejo) [facility] Homegoing Instructionson Homegoing Instructions Additional Instructions: Medication Information: Medication Instructions Do not have anything by mouth after midnight the night before your treatment unless instructed otherwise. You may have clear liquids up until 6 hours prior to your appointment. Take the following medications with a sip of water in the morning prior to ECT: Protonix Do not take the following medication(s) after 4:00 PM the night before or morning of ECT: Athalia, klonopin Appointments: Service/Clinician NameECT- Please stop at Registration 10-15 minutes prior to your appointment time. Date/[id number] 09:[address] [facility], [address] [address] floor [phone] Appointment CommentPlease remember that we must have at least 24 hours notice if you need to cancel your appointment. If you cancel your appointment late or do not show for your appointment 3 times, no additional appointments will be scheduled. It is very important that you arrive for your appointment at or before the scheduled time. If you are more than 10 minutes late, there is a chance that we may have to cancel the appointment. Electronic Signatures: Lexy Hylton (RN) (Signed 07-Nov-2018 10:45) Authored: Additional Instructions Last Updated: 07-Nov-2018 10:45 by Lexy Hylton (MARITZA) [facility] Patient Profile - Preop v2on 11-07-2018 Patient Profile - Preop v2 Profile: Initial Info: How to be AddressedKate(1) Spoken Language PreferredEnglish (1) Source of Informationpatient Are you currently using the Personal Electronic Health Record or ASSET4 (1) Stated Reason for AdmissionECT Primary Contact Name and NumberErick Guajardo [phone] Patient Belongingsremains with patient Patient Belongings Remaining with Patientclothing; cell phone/electronics; purse/wallet; turcios/credit card; vision aids Medications Brought to Hospitalno General Health: Weight in kg70.3 kilogram(s) Weight in kda125.9 pound(s) Weight Methodstated Height in cm172.7 centimeter(s) Height in feet5 feet Height in inches8 inch(es) Height Methodstated BMI (kg/m2)23.57 square meter Patient or Family Member Reaction to Anesthesiano previous reaction Blood Avoidance/Restrictionsn one Previous Transfusion Reactionno Health Mgmt: Symptoms/Conditions Managed at Homebehavioral health; cardiovascular; gastrointestinal; HEENT (head, eyes, ears, nose, throat); musculoskeletal; neurological; endocrine Are You Currently Breastfeedingunable to answer Behavioral Health Symptoms/Conditionsbipo lar affective disorder; depression; anxiety; post traumatic stress Behavioral Management Strategiescounseling; medication therapy Behavioral Health Symptoms/Conditions CommentInitiated Electroconvulsive Therapy Cardiovascular Symptoms/Conditionsdysr hythmia Cardiovascular Management Strategiesmedication therapy Cardiovascular Symptoms/Conditions CommentA-fib Endocrine Symptoms/Conditions CommentMTHFR mutation Gastrointestinal Symptoms/Conditionsrefl ux/heartburn; constipation Gastrointestinal Management Strategiesmedication therapy Gastrointestinal Symptoms/Conditions CommentGERD HEENT Symptoms/Conditionsvisi on problem(s) HEENT Management Strategiesmedication therapy HEENT Symptoms/Conditions CommentEnvironmental allergens; stigmatism Musculoskeletal Symptoms/Conditions 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 Neurological Symptoms/Conditionshead trauma Neurological Management Strategiesmedication therapy Neurological Symptoms/Conditions Commentmigraines; hx epilepsy Are You no Barriers to Managing Healthfinancial resources Relationship/Environ: Lives Withparent(s); sibling(s)(1) Living Arrangementshouse(1) Resource/Environmental Concernsfinancial Anticipated [facility] Substance: Current or Former Substance Use never: Cigarette/Tobacco, e-Cigarette/Vaping, Street Drugs YES: Alcohol Alcohol Use Statuspast alcohol Alcohol Frequencymonthly or less Alcohol Last Usecouple years Risk Screens: Advance Directive Medicalno Advance Directive Information Givenpatient/family declined Advance Directive Mental Healthno; information given/requested Advance Directive Information Given (Mental Health)patient/family declined During the past month, have you often been bothered by feeling down, depressed or hopelessyes During the past month, have you often had little interest or pleasure in doing thingsyes Have you had any thoughts of harming yourselfyes Have you had any thoughts of harming anyone elseno Suicide/Depression Commentpatient currently denies plan/intent, but continues to have suicidal thoughts several times a day Patient is Able to be Assessed for Learningyes Factors Influencing Readiness to Learndepression; interest in learning Factors that Impact Ability to Learnnone Devices/Methods Used to Communicateglasses Learning Preferencesindividual instruction; computer/internet Cultural Considerationsnone Developmental Considerationsdevelopme ntal considerations ADHD Jew Considerationsnone Other learner availableno [place] RiskPatient location auto qualifies him/her for HIGH RISK. Are there any cultural, spiritual, baptist practices/values/needs that are important for us to knowno Pain Scalenumerical 0-10 Pain Scale Educationteaching provided Current Pain Level3 = Mild Acceptable Pain Level5 = Moderate Expression of Pain (nonverbal)verbalizatio n Lifestyle Changes/Adaptations in Response to Painno change Chronic Painno Information Review: Allergies, Home Meds and Significant Events have been Reviewed and Verified with Patient/Familyyes Allergy, Intolerance, Adverse Event: Allergies: No Known Allergies: Active Electronic Signatures: Lexy Hylton (MARITZA) (Signed 07-Nov-2018 08:59) Authored: Profile, Additional Information Last Updated: 07-Nov-2018 08:59 by Lexy Hylton (MARITZA) References: 1. Data Referenced From Patient Profile - Preop v2" 11/04/2018 7:16 AM Normal [facility] Preop Checkliston 11-07-2018 Preop Checklist Preop Checklist: Preop Checklist: Arrival [id number] Arrival Time08:25 Procedure TypeECT NPO [id number] 21:00 NPO Commentsip with med this AM ID Band Onyes Allergy Bandyes Consent Signedyes H&P Completeyes Anesthesia Assessment Completedyes EKG Performednot ordered Chest X-Ray Performednot ordered Chlorhexadine Bath Givennot applicable Hair Washednot applicable Soap and water bath with hair shampoo the night before surgerynot applicable SCD's Appliednot applicable JAYNA Hose Appliednot ordered Denturesnot applicable Prostheticsnot applicable Hearing Aidsnot applicable Valuables Securedplaced in locker Glasses / Contactsplaced in locker Bowel Prepno Cardiovascular Assessment: Apicalregular Radial Pulsespalpable Extremitieswarm Respiratory Assessment: Respirationsunlabored regular Air Exchangeequal, good Breath Soundsclear Neurological Assessment: Level of Consciousnessoriented, alert Mobilitymoves all extremities Able to Express Selfyes Age Appropriateyes Emotional Statusanxious Preop Education: Surgical Site Infection Preventionno n/a Pain Scales and Managementyes Language / Communication: Language / CommunicationEnglish Electronic Signatures: Lexy Hylton (MARITZA) (Signed 07-Nov-2018 08:55) Authored: Preop Checklist Last Updated: 07-Nov-2018 08:55 by Lexy Hylton (MARITZA) [facility] Clinical Event Note-Oksana nagy ECTon 11-04-2018 Clinical Event Note-Bilateral ECT Event: Topic: Bilateral ECT Details: Pt interviewed, chart and treatment plan reviewed. She continues to feel depressed, but better with ECT. no si/hi VISHNU completed, low acute risk to harm self Sleep, appetite, energy, interest and concentration are all decreased. Some persistent feelings of worthlessness and guilt. tolerated ECT well No complications Impression: Major Depression, recurrent Severe Plan: ECT on November 07 Electronic Signatures: Adriana Adames) (Signed 04-Nov-2018 09:28) Authored: Event Last Updated: 04-Nov-2018 09:28 by Adriana Adames) [facility] Homegoing Instructionson Homegoing Instructions Additional Instructions: Medication Information: Medication Instructions Do not have anything by mouth after midnight the night before your treatment unless instructed otherwise. You may have clear liquids up until 6 hours prior to your appointment. Take the following medications with a sip of water in the morning prior to ECT: Protonix Do not take the following medication(s) after 4:00 PM the night before or morning of ECT: Athalia, klonopin Appointments: Service/Clinician NameECT- Please stop at Registration 10-15 minutes prior to your appointment time. Date/[id number] 08:[address] [facility], [address] [address] Third floor [phone] Appointment CommentPlease remember that we must have at least 24 hours notice if you need to cancel your appointment. If you cancel your appointment late or do not show for your appointment 3 times, no additional appointments will be scheduled. It is very important that you arrive for your appointment at or before the scheduled time. If you are more than 10 minutes late, there is a chance that we may have to cancel the appointment. Electronic Signatures: Lexy Hylton (RN) (Signed 04-Nov-2018 09:32) Authored: Additional Instructions Last Updated: 04-Nov-2018 09:32 by Lexy Hylton (MARITZA) [facility] Patient Profile - Preop v2on 11-04-2018 Patient Profile - Preop v2 Profile: Initial Info: How to be AddressedKate(1) Spoken Language PreferredEnglish (1) Source of Informationpatient Are you currently using the Personal Electronic Health Record or Vizys (1) Stated Reason for AdmissionECT Primary Contact Name and NumberErick Guajardo [phone] Patient Belongingsremains with patient Patient Belongings Remaining with Patientclothing; cell phone/electronics; purse/wallet; turcios/credit card; vision aids Medications Brought to Hospitalno General Health: Weight in kg70.3 kilogram(s) Weight in mnm516 pound(s) Weight Methodstated Height in cm172.7 centimeter(s) Height in feet5 feet Height in inches8 inch(es) Height Methodstated BMI (kg/m2)23.57 square meter Patient or Family Member Reaction to Anesthesiano previous reaction Blood Avoidance/Restrictionsn one Previous Transfusion Reactionno Health Mgmt: Symptoms/Conditions Managed at Homebehavioral health; cardiovascular; gastrointestinal; HEENT (head, eyes, ears, nose, throat); musculoskeletal; neurological; endocrine Are You Currently Breastfeedingno Behavioral Health Symptoms/Conditionsbipo lar affective disorder; depression; anxiety; post traumatic stress Behavioral Management Strategiescounseling; medication therapy Behavioral Health Symptoms/Conditions CommentInitiated Electroconvulsive Therapy Cardiovascular Symptoms/Conditionsdysr hythmia Cardiovascular Management Strategiesmedication therapy Cardiovascular Symptoms/Conditions CommentA-fib Endocrine Symptoms/Conditions CommentMTHFR mutation Gastrointestinal Symptoms/Conditionsrefl ux/heartburn; constipation Gastrointestinal Management Strategiesmedication therapy Gastrointestinal Symptoms/Conditions CommentGERD HEENT Symptoms/Conditionsvisi on problem(s) HEENT Management Strategiesmedication therapy HEENT Symptoms/Conditions CommentEnvironmental allergens; stigmatism Musculoskeletal Symptoms/Conditions 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 Neurological Symptoms/Conditionshead trauma Neurological Management Strategiesmedication therapy Neurological Symptoms/Conditions Commentmigraines; hx epilepsy Are You no Barriers to Managing Healthfinancial resources Relationship/Environ: Lives Withparent(s); sibling(s)(1) Living Arrangementshouse(1) Resource/Environmental Concernsfinancial [facility]ticipated [facility] Substance: Current or Former Substance Use never: Cigarette/Tobacco, e-Cigarette/Vaping, Street Drugs YES: Alcohol Alcohol Use Statuspast alcohol Alcohol Frequencymonthly or less Alcohol Last Usecouple years Risk Screens: Advance Directive Medicalno Advance Directive Information Givenpatient/family declined Advance Directive Mental Healthno; information given/requested Advance Directive Information Given (Mental Health)patient/family declined During the past month, have you often been bothered by feeling down, depressed or hopelessyes During the past month, have you often had little interest or pleasure in doing thingsyes Have you had any thoughts of harming yourselfyes Have you had any thoughts of harming anyone elseno Suicide/Depression Commentpt admits to always having a plan, currently denies intent Patient is Able to be Assessed for Learningyes Factors Influencing Readiness to Learndepression; interest in learning Factors that Impact Ability to Learnnone Devices/Methods Used to Communicateglasses Learning Preferencesindividual instruction; computer/internet Cultural Considerationsnone Developmental Considerationsdevelopme ntal considerations ADHD Jew Considerationsnone Other learner availableno [place] RiskPatient location auto qualifies him/her for HIGH RISK. Are there any cultural, spiritual, baptist practices/values/needs that are important for us to knowno Pain Scalenumerical 0-10 Pain Scale Educationteaching provided Current Pain Level0 = None Acceptable Pain Level5 = Moderate Expression of Pain (nonverbal)none Lifestyle Changes/Adaptations in Response to Painno change Chronic Painno Information Review: Allergies, Home Meds and Significant Events have been Reviewed and Verified with Patient/Familyyes Allergy, Intolerance, Adverse Event: Allergies: No Known Allergies: Active Intolerances: Dilaudid: Drug, Nausea/Vomiting, Active Electronic Signatures: Jr Romero) (Signed 04-Nov-2018 07:18) Authored: Profile, Additional Information Last Updated: 04-Nov-2018 07:18 by Jr Romero (MARITZA) References: 1. Data Referenced From Patient Profile - Preop v2" 11/02/2018 7:10 AM Normal [facility] Preop Checkliston 11-04-2018 Preop Checklist Preop Checklist: Preop Checklist: Arrival [id number] Arrival Time07:15 Procedure TypeECT NPO [id number] 04:30 NPO Commentsip with med this AM ID Band Onyes Allergy Bandno known allergies Consent Signedyes H&P Completeyes Anesthesia Assessment Completedyes EKG Performednot ordered Chest X-Ray Performednot ordered Chlorhexadine Bath Givennot applicable Hair Washednot applicable Soap and water bath with hair shampoo the night before surgerynot applicable SCD's Appliednot applicable JAYNA Hose Appliednot ordered Denturesnot applicable Prostheticsnot applicable Hearing Aidsnot applicable Valuables Securedplaced in locker Glasses / Contactsplaced in locker Bowel Prepno Cardiovascular Assessment: Apicalregular Radial Pulsespalpable Extremitieswarm Respiratory Assessment: Respirationsunlabored regular Air Exchangeequal, good Breath Soundsclear Neurological Assessment: Level of Consciousnessoriented, alert Mobilitymoves all extremities Able to Express Selfyes Age Appropriateyes Emotional Statusanxious Preop Education: Surgical Site Infection Preventionno n/a Pain Scales and Managementyes Language / Communication: Language / CommunicationEnglish Electronic Signatures: Jr Romero) (Signed 04-Nov-2018 07:16) Authored: Preop Checklist Last Updated: 04-Nov-2018 07:16 by Jr Romero (MARITZA) Normal [facility] Clinical Event Note-BL multi ple seizure ECT#5on 11-02-2018 Clinical Event Note-BL multiple seizure ECT#5 Event: Topic: BL multiple seizure ECT#5 Details: She said she felt better overall, but continued feeling depressed with moderate sx. had SI last night, but no plan or intent. no HI/AVH. no memory concern. She was awake, alert, cooperative, and pleasant. good eye contact. oriented x3. speech was normal. affect was appropriate with smile. mood - ok. denied having SI/HI/AVH during the interview. no delusional thought. I/J were fair. memory was ok. attention and concentration were adequate. Tolerated ECT well no complication Imp: bipolar I depression, severe - recovering Plan: continue acute ECT 3 times a week. Alanis Cornejo MD. Electronic Signatures: Alanis Cornejo) (Signed 02-Nov-2018 08:48) Authored: Event Last Updated: 02-Nov-2018 08:48 by Alanis Cornejo) Normal [facility] Homegoing Instructionson Homegoing Instructions Additional Instructions: Medication Information: Medication Instructions Do not have anything by mouth after midnight the night before your treatment unless instructed otherwise. You may have clear liquids up until 6 hours prior to your appointment. Take the following medications with a sip of water in the morning prior to ECT: Protonix Do not take the following medication(s) after 4:00 PM the night before or morning of ECT: Athalia, klonopin Appointments: Service/Clinician NameECT- Please stop at Registration 10-15 minutes prior to your appointment time. Date/[id number] 07:[address] [facility], [address] [address] floor [phone] Appointment CommentPlease remember that we must have at least 24 hours notice if you need to cancel your appointment. If you cancel your appointment late or do not show for your appointment 3 times, no additional appointments will be scheduled. It is very important that you arrive for your appointment at or before the scheduled time. If you are more than 10 minutes late, there is a chance that we may have to cancel the appointment. Electronic Signatures: Lexy Hylton) (Signed 02-Nov-2018 09:12) Authored: Additional Instructions Last Updated: 02-Nov-2018 09:12 by Lexy Hylton (RN) [facility] Patient Profile - Preop v2on 11-02-2018 Patient Profile - Preop v2 Profile: Initial Info: How to be AddressedKate(1) Spoken Language PreferredEnglish (1) Source of Informationpatient Are you currently using the Personal Electronic Health Record or Symphogenyes (1) Stated Reason for AdmissionECT Primary Contact Name and NumberErick Guajardo [phone] Patient Belongingsremains with patient Patient Belongings Remaining with Patientclothing; cell phone/electronics; purse/wallet; turcios/credit card; vision aids Medications Brought to Hospitalno General Health: Weight in kg72.5 kilogram(s) Weight in xqc514.8 pound(s) Weight Methodstated Height in cm172.7 centimeter(s) Height in feet5 feet Height in inches8 inch(es) Height Methodstated BMI (kg/m2)24.308 square meter Patient or Family Member Reaction to Anesthesiano previous reaction Blood Avoidance/Restrictionsn one Previous Transfusion Reactionno Health Mgmt: Symptoms/Conditions Managed at Homebehavioral health; cardiovascular; gastrointestinal; HEENT (head, eyes, ears, nose, throat); musculoskeletal; neurological; endocrine Are You Currently Breastfeedingno Behavioral Health Symptoms/Conditionsbipo lar affective disorder; depression; anxiety; post traumatic stress Behavioral Management Strategiescounseling; medication therapy Behavioral Health Symptoms/Conditions CommentInitiated Electroconvulsive Therapy Cardiovascular Symptoms/Conditionsdysr hythmia Cardiovascular Management Strategiesmedication therapy Cardiovascular Symptoms/Conditions CommentA-fib Endocrine Symptoms/Conditions CommentMTHFR mutation Gastrointestinal Symptoms/Conditionsrefl ux/heartburn; constipation Gastrointestinal Management Strategiesmedication therapy Gastrointestinal Symptoms/Conditions CommentGERD HEENT Symptoms/Conditionsvisi on problem(s) HEENT Management Strategiesmedication therapy HEENT Symptoms/Conditions CommentEnvironmental allergens; stigmatism Musculoskeletal Symptoms/Conditions 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 Neurological Symptoms/Conditionshead trauma Neurological Management Strategiesmedication therapy Neurological Symptoms/Conditions Commentmigraines; hx epilepsy Are You no Barriers to Managing Healthfinancial resources Relationship/Environ: Lives Withparent(s); sibling(s)(1) Living Arrangementshouse(1) Resource/Environmental Concernsfinancial Anticipated [facility] Substance: Current or Former Substance Use never: Cigarette/Tobacco, e-Cigarette/Vaping, Street Drugs YES: Alcohol Alcohol Use Statuspast alcohol Alcohol Frequencymonthly or less Alcohol Last Usecouple years Risk Screens: Advance Directive Medicalno Advance Directive Information Givenpatient/family declined Advance Directive Mental Healthno; information given/requested Advance Directive Information Given (Mental Health)patient/family declined During the past month, have you often been bothered by feeling down, depressed or hopelessyes During the past month, have you often had little interest or pleasure in doing thingsyes Have you had any thoughts of harming yourselfyes Have you had any thoughts of harming anyone elseno Suicide/Depression Commentpt admits to having a plan, currently denies intent Patient is Able to be Assessed for Learningyes Factors Influencing Readiness to Learndepression; interest in learning Factors that Impact Ability to Learnnone Devices/Methods Used to Communicateglasses Learning Preferencesindividual instruction; computer/internet Cultural Considerationsnone Developmental Considerationsdevelopme ntal considerations ADHD Jew Considerationsnone Other learner availableno [place] RiskPatient location auto qualifies him/her for HIGH RISK. Are there any cultural, spiritual, baptist practices/values/needs that are important for us to knowno Pain Scalenumerical 0-10 Pain Scale Educationteaching provided Current Pain Level0 = None Acceptable Pain Level5 = Moderate Expression of Pain (nonverbal)none Lifestyle Changes/Adaptations in Response to Painno change Chronic Painno Information Review: Allergies, Home Meds and Significant Events have been Reviewed and Verified with Patient/Familyyes Allergy, Intolerance, Adverse Event: Allergies: No Known Allergies: Active Intolerances: Dilaudid: Drug, Nausea/Vomiting, Active Electronic Signatures: Eber Brown (MARITZA) (Signed 02-Nov-2018 07:15) Authored: Profile, Additional Information Last Updated: 02-Nov-2018 07:15 by Eber Brown (MARITZA) References: 1. Data Referenced From Patient Profile - Preop v2" 10/31/2018 07:34 AM Normal [facility] Preop Checkliston 11-02-2018 Preop Checklist Preop Checklist: Preop Checklist: Arrival [id number] Arrival Time07:00 Procedure TypeECT NPO [id number] 23:00 NPO Commentsip with med this AM ID Band Onyes Allergy Bandno known allergies Consent Signedyes H&P Completeyes Anesthesia Assessment Completedpending EKG Performednot ordered Chest X-Ray Performednot ordered Chlorhexadine Bath Givennot applicable Hair Washednot applicable Soap and water bath with hair shampoo the night before surgerynot applicable SCD's Appliednot applicable JAYNA Hose Appliednot ordered Denturesnot applicable Prostheticsnot applicable Hearing Aidsnot applicable Valuables Securedplaced in locker Glasses / Contactsplaced in locker Bowel Prepno Cardiovascular Assessment: Apicalregular Radial Pulsespalpable Extremitieswarm Respiratory Assessment: Respirationsunlabored regular Air Exchangeequal, good Breath Soundsclear Neurological Assessment: Level of Consciousnessoriented, alert Mobilitymoves all extremities Able to Express Selfyes Age Appropriateyes Emotional Statusanxious Preop Education: Surgical Site Infection Preventionno n/a Pain Scales and Managementyes Language / Communication: Language / CommunicationEnglish Electronic Signatures: Eber Brown) (Signed 02-Nov-2018 07:16) Authored: Preop Checklist Last Updated: 02-Nov-2018 07:16 by Eber Brown (MARITZA) Normal [facility] Clinical Event Note-BL multi ple seizure ECT #4on 10-31-2018 Clinical Event Note-BL multiple seizure ECT #4 Event: Topic: BL multiple seizure ECT #4 Details: She said she felt better, about 25% improved. less depressed. no SI/HI/AVH. ate well. memory was not good, but manageable. QIDS=9; MOCA=26 She was awake, alert, cooperative, and pleasant. good eye contact. oriented x3. speech was normal. affect was brighter with smile. mood - ok. denied having SI/HI/AVH during the interivew. no delusional thought. I/J were fair. memory was ok. attention and concentration were adequate. Tolerated ECT well no complication Imp: bipolar I depression, recurrent, severe - recovering Plan: continue acute ECT 3 times a week; reassess next week. Alanis Cornejo MD. Electronic Signatures: Alanis Cornejo) (Signed 31-Oct-2018 09:07) Authored: Event Last Updated: 31-Oct-2018 09:07 by Alanis Cornejo) [facility] Homegoing Instructionson Homegoing Instructions Additional Instructions: Medication Information: Medication Instructions Do not have anything by mouth after midnight the night before your treatment unless instructed otherwise. You may have clear liquids up until 6 hours prior to your appointment. Take the following medications with a sip of water in the morning prior to ECT: Protonix Do not take the following medication(s) after 4:00 PM the night before or morning of ECT: Athalia, klonopin Appointments: Service/Clinician NameECT- Please stop at Registration 10-15 minutes prior to your appointment time. Date/[id number] 07:[address] [facility], [address] [address] floor [phone] Appointment CommentPlease remember that we must have at least 24 hours notice if you need to cancel your appointment. If you cancel your appointment late or do not show for your appointment 3 times, no additional appointments will be scheduled. It is very important that you arrive for your appointment at or before the scheduled time. If you are more than 10 minutes late, there is a chance that we may have to cancel the appointment. Electronic Signatures: Lexy Hylton (RN) (Signed 31-Oct-2018 08:41) Authored: Additional Instructions Last Updated: 31-Oct-2018 08:41 by Lexy Hlyton (MARITZA) [facility] Patient Profile - Preop v2on 10-31-2018 Patient Profile - Preop v2 Profile: Initial Info: How to be AddressedKate(1) Spoken Language PreferredEnglish (1) Source of Informationpatient Are you currently using the Personal Electronic Health Record or [employer] (1) Stated Reason for AdmissionECT Primary Contact Name and NumberErick Guajardo [phone] Patient Belongingsremains with patient Patient Belongings Remaining with Patientclothing; cell phone/electronics; purse/wallet; turcios/credit card; vision aids Medications Brought to Hospitalno General Health: Weight in kg72.5 kilogram(s) Weight in ysl922.8 pound(s) Weight Methodstated Height in cm172.7 centimeter(s) Height in feet5 feet Height in inches8 inch(es) Height Methodstated BMI (kg/m2)24.308 square meter Patient or Family Member Reaction to Anesthesiano previous reaction Blood Avoidance/Restrictionsn one Previous Transfusion Reactionno Health Mgmt: Symptoms/Conditions Managed at Homebehavioral health; cardiovascular; gastrointestinal; HEENT (head, eyes, ears, nose, throat); musculoskeletal; neurological; endocrine Are You Currently Breastfeedingno Behavioral Health Symptoms/Conditionsbipo lar affective disorder; depression; anxiety; post traumatic stress Behavioral Management Strategiescounseling; medication therapy Behavioral Health Symptoms/Conditions CommentInitiated Electroconvulsive Therapy Cardiovascular Symptoms/Conditionsdysr hythmia Cardiovascular Management Strategiesmedication therapy Cardiovascular Symptoms/Conditions CommentA-fib Endocrine Symptoms/Conditions CommentMTHFR mutation Gastrointestinal Symptoms/Conditionsrefl ux/heartburn; constipation Gastrointestinal Management Strategiesmedication therapy Gastrointestinal Symptoms/Conditions CommentGERD HEENT Symptoms/Conditionsvisi on problem(s) HEENT Management Strategiesmedication therapy HEENT Symptoms/Conditions CommentEnvironmental allergens; stigmatism Musculoskeletal Symptoms/Conditions 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 Neurological Symptoms/Conditionshead trauma Neurological Management Strategiesmedication therapy Neurological Symptoms/Conditions Commentmigraines; hx epilepsy Are You no Barriers to Managing Healthfinancial resources Relationship/Environ: Lives Withparent(s); sibling(s)(1) Living Arrangementshouse(1) Resource/Environmental Concernsfinancial Anticipated [facility] Substance: Current or Former Substance Use never: Cigarette/Tobacco, e-Cigarette/Vaping, Street Drugs YES: Alcohol Alcohol Use Statuspast alcohol Alcohol Frequencymonthly or less Alcohol Last Usecouple years Risk Screens: Advance Directive Medicalno Advance Directive Information Givenpatient/family declined Advance Directive Mental Healthno; information given/requested Advance Directive Information Given (Mental Health)patient/family declined During the past month, have you often been bothered by feeling down, depressed or hopelessyes During the past month, have you often had little interest or pleasure in doing thingsyes Have you had any thoughts of harming yourselfyes Have you had any thoughts of harming anyone elseno Suicide/Depression Commentpt admits to having a plan, currently denies intent Patient is Able to be Assessed for Learningyes Factors Influencing Readiness to Learndepression; interest in learning Factors that Impact Ability to Learnnone Devices/Methods Used to Communicateglasses Learning Preferencesindividual instruction; computer/internet Cultural Considerationsnone Developmental Considerationsdevelopme ntal considerations ADHD Jew Considerationsnone Other learner availableno [place] RiskPatient location auto qualifies him/her for HIGH RISK. Are there any cultural, spiritual, baptist practices/values/needs that are important for us to knowno Pain Scalenumerical 0-10 Pain Scale Educationteaching provided Current Pain Level0 = None Acceptable Pain Level5 = Moderate Expression of Pain (nonverbal)none Lifestyle Changes/Adaptations in Response to Painno change Chronic Painno Information Review: Allergies, Home Meds and Significant Events have been Reviewed and Verified with Patient/Familyyes Allergy, Intolerance, Adverse Event: Allergies: No Known Allergies: Active Intolerances: Dilaudid: Drug, Nausea/Vomiting, Active Electronic Signatures: Felicitas Watson (MARITZA) (Signed 31-Oct-2018 07:35) Authored: Profile, Additional Information Last Updated: 31-Oct-2018 07:35 by Felicitas Watson (MARITZA) References: 1. Data Referenced From Patient Profile - Preop v2" 10/28/2018 8:12 AM Normal [facility] Preop Checkliston 10-31-2018 Preop Checklist Preop Checklist: Preop Checklist: Arrival [id number] Arrival Time07:15 Procedure TypeECT NPO [id number] 23:55 NPO Commentsip with med this AM ID Band Onyes Allergy Bandno known allergies, intolerance Consent Signedpending H&P Completeyes Anesthesia Assessment Completedyes EKG Performednot ordered Chest X-Ray Performednot ordered Chlorhexadine Bath Givennot applicable Hair Washednot applicable Soap and water bath with hair shampoo the night before surgerynot applicable SCD's Appliednot applicable JAYNA Hose Appliednot ordered Denturesnot applicable Prostheticsnot applicable Hearing Aidsnot applicable Valuables Securedplaced in locker Glasses / Contactsplaced in locker Bowel Prepno Cardiovascular Assessment: Apicalregular Radial Pulsespalpable Extremitieswarm Respiratory Assessment: Respirationsunlabored regular Air Exchangeequal, good Breath Soundsclear Neurological Assessment: Level of Consciousnessoriented, alert Mobilitymoves all extremities Able to Express Selfyes Age Appropriateyes Emotional Statusanxious Preop Education: Surgical Site Infection Preventionno n/a Pain Scales and Managementyes Language / Communication: Language / CommunicationEnglish Electronic Signatures: Felicitas Watson) (Signed 31-Oct-2018 07:36) Authored: Preop Checklist Last Updated: 31-Oct-2018 07:36 by Felicitas Watson (RN) Normal [facility] Clinical Event Note-bilevaristoa l ECT #3on 10-28-2018 Clinical Event Note-bilateral ECT #3 Event: Topic: bilateral ECT #3 Details: Pt interviewed, chart and txment plan reviewed. Mood is still depressed, felt better on wednesday but the improvement did not last. Sleep, appetite, energy and concentration are better. No si /hi VISHNU completed, low acute risk to harm self Impression: Major depression, recurrent, moderate tolerated ECT well No complications Plan ECT on Wednesday Electronic Signatures: Adriana Adames) (Signed 28-Oct-2018 09:19) Authored: Event Last Updated: 28-Oct-2018 09:19 by Adriana Adames) [facility] Homegoing Instructionson Homegoing Instructions Additional Instructions: Medication Information: Medication Instructions Do not have anything by mouth after midnight the night before your treatment unless instructed otherwise. You may have clear liquids up until 6 hours prior to your appointment. Take the following medications with a sip of water in the morning prior to ECT: Protonix Do not take the following medication(s) after 4:00 PM the night before or morning of ECT: Athalia, klonopin Appointments: Service/Clinician NameECT- Please stop at Registration 10-15 minutes prior to your appointment time. Date/[id number] 07:[address] [facility], [address] [address] floor [phone] Appointment CommentPlease remember that we must have at least 24 hours notice if you need to cancel your appointment. If you cancel your appointment late or do not show for your appointment 3 times, no additional appointments will be scheduled. It is very important that you arrive for your appointment at or before the scheduled time. If you are more than 10 minutes late, there is a chance that we may have to cancel the appointment. Electronic Signatures: Lexy Hylton) (Signed 28-Oct-2018 07:24) Authored: Additional Instructions Last Updated: 28-Oct-2018 07:24 by Lexy Hylton) [facility] Patient Profile - Preop v2on 10-28-2018 Patient Profile - Preop v2 Profile: Initial Info: How to be AddressedKate(1) Spoken Language PreferredEnglish (1) Source of Informationpatient Are you currently using the Personal Electronic Health Record or [employer]yes (1) Stated Reason for AdmissionECT Primary Contact Name and NumberErick Guajardo [phone] Patient Belongingsremains with patient Patient Belongings Remaining with Patientclothing; cell phone/electronics; purse/wallet; turcios/credit card; vision aids Medications Brought to Hospitalno General Health: Weight in kg72.5 kilogram(s) Weight in ctz800.8 pound(s) Weight Methodstated Height in cm172.7 centimeter(s) Height in feet5 feet Height in inches8 inch(es) Height Methodstated BMI (kg/m2)24.308 square meter Patient or Family Member Reaction to Anesthesiano previous reaction Blood Avoidance/Restrictionsn one Previous Transfusion Reactionno Health Mgmt: Symptoms/Conditions Managed at Homebehavioral health; cardiovascular; gastrointestinal; HEENT (head, eyes, ears, nose, throat); musculoskeletal; neurological; endocrine Are You Currently Breastfeedingno Behavioral Health Symptoms/Conditionsbipo lar affective disorder; depression; anxiety; post traumatic stress Behavioral Management Strategiescounseling; medication therapy Behavioral Health Symptoms/Conditions CommentInitiated Electroconvulsive Therapy Cardiovascular Symptoms/Conditionsdysr hythmia Cardiovascular Management Strategiesmedication therapy Cardiovascular Symptoms/Conditions CommentA-fib Endocrine Symptoms/Conditions CommentMTHFR mutation Gastrointestinal Symptoms/Conditionsrefl ux/heartburn; constipation Gastrointestinal Management Strategiesmedication therapy Gastrointestinal Symptoms/Conditions CommentGERD HEENT Symptoms/Conditionsvisi on problem(s) HEENT Management Strategiesmedication therapy HEENT Symptoms/Conditions CommentEnvironmental allergens; stigmatism Musculoskeletal Symptoms/Conditions 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 Neurological Symptoms/Conditionshead trauma Neurological Management Strategiesmedication therapy Neurological Symptoms/Conditions Commentmigraines; hx epilepsy Are You no Barriers to Managing Healthfinancial resources Relationship/Environ: Lives Withparent(s); sibling(s)(1) Living Arrangementshouse(1) Resource/Environmental Concernsfinancial [facility]ticipated [facility] Substance: Current or Former Substance Use never: Cigarette/Tobacco, e-Cigarette/Vaping, Street Drugs YES: Alcohol Alcohol Use Statuspast alcohol Alcohol Frequencymonthly or less Alcohol Last Usecouple years Risk Screens: Advance Directive Medicalno Advance Directive Information Givenpatient/family declined Advance Directive Mental Healthno; information given/requested Advance Directive Information Given (Mental Health)patient/family declined During the past month, have you often been bothered by feeling down, depressed or hopelessyes During the past month, have you often had little interest or pleasure in doing thingsyes Have you had any thoughts of harming yourselfyes Have you had any thoughts of harming anyone elseno Suicide/Depression Commentpt admits to having a plan, currently denies intent Patient is Able to be Assessed for Learningyes Factors Influencing Readiness to Learndepression; interest in learning Factors that Impact Ability to Learnnone Devices/Methods Used to Communicateglasses Learning Preferencesindividual instruction; computer/internet Cultural Considerationsnone Developmental Considerationsdevelopme ntal considerations ADHD Jew Considerationsnone Other learner availableno [place] RiskPatient location auto qualifies him/her for HIGH RISK. Are there any cultural, spiritual, baptist practices/values/needs that are important for us to knowno Pain Scalenumerical 0-10 Pain Scale Educationteaching provided Current Pain Level0 = None Acceptable Pain Level5 = Moderate Expression of Pain (nonverbal)none Lifestyle Changes/Adaptations in Response to Painno change Chronic Painno Information Review: Allergies, Home Meds and Significant Events have been Reviewed and Verified with Patient/Familyyes Allergy, Intolerance, Adverse Event: Allergies: No Known Allergies: Active Intolerances: Dilaudid: Drug, Nausea/Vomiting, Active Electronic Signatures: Klever Bermeo (ASST HEAD N MGR) (Signed 28-Oct-2018 08:13) Authored: Profile, Additional Information Last Updated: 28-Oct-2018 08:13 by Klever Bermeo (ASST HEAD N MGR) References: 1. Data Referenced From Patient Profile - Preop v2" 10/26/2018 7:28 AM Normal [facility] Preop Checkliston 10-28-2018 Preop Checklist Preop Checklist: Preop Checklist: Arrival [id number] Arrival Time07:15 Procedure TypeECT NPO [id number] 06:00 NPO Commentsip with med this AM ID Band Onyes Allergy Bandno known allergies, intolerance Consent Signedpending H&P Completeyes Anesthesia Assessment Completedyes EKG Performednot ordered Chest X-Ray Performednot ordered Chlorhexadine Bath Givennot applicable Hair Washednot applicable Soap and water bath with hair shampoo the night before surgerynot applicable SCD's Appliednot applicable JAYNA Hose Appliednot ordered Denturesnot applicable Prostheticsnot applicable Hearing Aidsnot applicable Valuables Securedplaced in locker Glasses / Contactsplaced in locker Bowel Prepno Cardiovascular Assessment: Apicalregular Radial Pulsespalpable Extremitieswarm Respiratory Assessment: Respirationsunlabored regular Air Exchangeequal, good Breath Soundsclear Neurological Assessment: Level of Consciousnessoriented, alert Mobilitymoves all extremities Able to Express Selfyes Age Appropriateyes Emotional Statusanxious Preop Education: Surgical Site Infection Preventionno n/a Pain Scales and Managementyes Language / Communication: Language / CommunicationEnglish Electronic Signatures: Klever Bermeo (ASST HEAD N MGR) (Signed 28-Oct-2018 08:12) Authored: Preop Checklist Last Updated: 28-Oct-2018 08:12 by Klever Bermeo (ASST HEAD N MGR) Normal [facility] Clinical Event Note-BL multi ple seizure #2on 10-26-2018 Clinical Event Note-BL multiple seizure #2 Event: Topic: BL multiple seizure #2 Details: she said she felt ok after 1st, may be a little more depressed because the expectation from ECT was over. still had SI, but no plan or intent. felt sore all over body. had hive-like change in her back and chest. no other sx of allergies or changes. no memory concern. She was awake, alert, cooperative, and pleasant. good eye contact. oriented x3. speech was normal. affect was appropriate with smile. mood - ok. denied having SI/HI/AVH during the interview. no delusional thought. I/J were fair. memory was ok. attention and concentration were adequate. Tolerated ECT well no complication Imp: bipolar I depression, recurrent, severe Plan: continue acute ECT 3 times a week. Alanis Cornejo MD. Electronic Signatures: Alanis Cornejo) (Signed 26-Oct-2018 08:59) Authored: Event Last Updated: 26-Oct-2018 08:59 by Alanis Cornejo) Normal [facility] Homegoing Instructionson Homegoing Instructions Additional Instructions: Medication Information: Medication Instructions Do not have anything by mouth after midnight the night before your treatment unless instructed otherwise. You may have clear liquids up until 6 hours prior to your appointment. Take the following medications with a sip of water in the morning prior to ECT: Protonix Do not take the following medication(s) after 4:00 PM the night before or morning of ECT: Athalia, klonopin Appointments: Service/Clinician NameECT- Please stop at Registration 10-15 minutes prior to your appointment time. Date/[id number] 07:[address] [facility], [address] [address] floor [phone] Appointment CommentPlease remember that we must have at least 24 hours notice if you need to cancel your appointment. If you cancel your appointment late or do not show for your appointment 3 times, no additional appointments will be scheduled. It is very important that you arrive for your appointment at or before the scheduled time. If you are more than 10 minutes late, there is a chance that we may have to cancel the appointment. Electronic Signatures: Lexy Hylton (MARITZA) (Signed 26-Oct-2018 08:56) Authored: Additional Instructions Last Updated: 26-Oct-2018 08:56 by Lexy Hylton (MARITZA) [facility] Patient Profile - Preop v2on 10-26-2018 Patient Profile - Preop v2 Profile: Initial Info: How to be AddressedKate(1) Spoken Language PreferredEnglish (1) Source of Informationpatient Are you currently using the Personal Electronic Health Record or [employer] (1) Stated Reason for AdmissionECT Primary Contact Name and NumberErick Schumacher [phone] Patient Belongingsremains with patient Patient Belongings Remaining with Patientclothing; cell phone/electronics; purse/wallet; turcios/credit card; vision aids Medications Brought to Hospitalno General Health: Weight in kg72.5 kilogram(s) Weight in xav073.8 pound(s) Weight Methodstated Height in cm172.7 centimeter(s) Height in feet5 feet Height in inches8 inch(es) Height Methodstated BMI (kg/m2)24.308 square meter Patient or Family Member Reaction to Anesthesiano previous reaction Blood Avoidance/Restrictionsn one Previous Transfusion Reactionno Health Mgmt: Symptoms/Conditions Managed at Homebehavioral health; cardiovascular; gastrointestinal; HEENT (head, eyes, ears, nose, throat); musculoskeletal; neurological; endocrine Are You Currently Breastfeedingno Behavioral Health Symptoms/Conditionsbipo lar affective disorder; depression; anxiety; post traumatic stress Behavioral Management Strategiescounseling; medication therapy Behavioral Health Symptoms/Conditions CommentInitiated Electroconvulsive Therapy Cardiovascular Symptoms/Conditionsdysr hythmia Cardiovascular Management Strategiesmedication therapy Cardiovascular Symptoms/Conditions CommentA-fib Endocrine Symptoms/Conditions CommentMTHFR mutation Gastrointestinal Symptoms/Conditionsrefl ux/heartburn; constipation Gastrointestinal Management Strategiesmedication therapy Gastrointestinal Symptoms/Conditions CommentGERD HEENT Symptoms/Conditionsvisi on problem(s) HEENT Management Strategiesmedication therapy HEENT Symptoms/Conditions CommentEnvironmental allergens; stigmatism Musculoskeletal Symptoms/Conditions 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 Neurological Symptoms/Conditionshead trauma Neurological Management Strategiesmedication therapy Neurological Symptoms/Conditions Commentmigraines; hx epilepsy Are You no Barriers to Managing Healthfinancial resources Relationship/Environ: Lives Withparent(s); sibling(s)(1) Living Arrangementshouse(1) Resource/Environmental Concernsfinancial Anticipated [facility] Substance: Current or Former Substance Use never: Cigarette/Tobacco, e-Cigarette/Vaping, Street Drugs YES: Alcohol Alcohol Use Statuspast alcohol Alcohol Frequencymonthly or less Alcohol Last Usecouple years Risk Screens: Advance Directive Medicalno Advance Directive Information Givenpatient/family declined Advance Directive Mental Healthno; information given/requested Advance Directive Information Given (Mental Health)patient/family declined During the past month, have you often been bothered by feeling down, depressed or hopelessyes During the past month, have you often had little interest or pleasure in doing thingsyes Have you had any thoughts of harming yourselfyes Have you had any thoughts of harming anyone elseno Suicide/Depression Commentpt admits to having a plan, currently denies intent Patient is Able to be Assessed for Learningyes Factors Influencing Readiness to Learndepression; interest in learning Factors that Impact Ability to Learnnone Devices/Methods Used to Communicateglasses Learning Preferencesindividual instruction; computer/internet Cultural Considerationsnone Developmental Considerationsdevelopme ntal considerations ADHD Jew Considerationsnone Other learner availableno [place] RiskPatient location auto qualifies him/her for HIGH RISK. Are there any cultural, spiritual, baptist practices/values/needs that are important for us to knowno Pain Scalenumerical 0-10 Pain Scale Educationteaching provided Current Pain Level0 = None Acceptable Pain Level5 = Moderate Expression of Pain (nonverbal)none Lifestyle Changes/Adaptations in Response to Painno change Chronic Painno Information Review: Allergies, Home Meds and Significant Events have been Reviewed and Verified with Patient/Familyyes Allergy, Intolerance, Adverse Event: Allergies: No Known Allergies: Active Intolerances: Dilaudid: Drug, Nausea/Vomiting, Active Electronic Signatures: Felicitas Watson) (Signed 26-Oct-2018 07:29) Authored: Profile, Additional Information Last Updated: 26-Oct-2018 07:29 by Felicitas Watson (RN) References: 1. Data Referenced From Patient Profile - Preop v2" 10/24/2018 7:23 AM Normal [facility] Preop Checkliston 10-26-2018 Preop Checklist Preop Checklist: Preop Checklist: Arrival [id number] Arrival Time07:15 Procedure TypeECT NPO [id number] 23:00 NPO Commentsip with med this AM ID Band Onyes Allergy Bandno known allergies, intolerance Consent Signedpending H&P Completeyes Anesthesia Assessment Completedyes EKG Performednot ordered Chest X-Ray Performednot ordered Chlorhexadine Bath Givennot applicable Hair Washednot applicable Soap and water bath with hair shampoo the night before surgerynot applicable SCD's Appliednot applicable JAYNA Hose Appliednot ordered Denturesnot applicable Prostheticsnot applicable Hearing Aidsnot applicable Valuables Securedplaced in locker Glasses / Contactsplaced in locker Bowel Prepno Cardiovascular Assessment: Apicalregular Radial Pulsespalpable Extremitieswarm Respiratory Assessment: Respirationsunlabored regular Air Exchangeequal, good Breath Soundsclear Neurological Assessment: Level of Consciousnessoriented, alert Mobilitymoves all extremities Able to Express Selfyes Age Appropriateyes Emotional Statusanxious Preop Education: Surgical Site Infection Preventionno n/a Pain Scales and Managementyes Language / Communication: Language / CommunicationEnglish Electronic Signatures: Felicitas Watson) (Signed 26-Oct-2018 07:31) Authored: Preop Checklist Last Updated: 26-Oct-2018 07:31 by Felicitas Watson (MARITZA) Normal [facility] Clinical Event Note-BL multi ple seizure ECT#1on 10-24-2018 Clinical Event Note-BL multiple seizure ECT#1 Event: Topic: BL multiple seizure ECT#1 Details: She said she felt hopeful because she will have ECT today. still felt depressed most of time with severity 6 of 10. ten was worst. still had SI on and off, but no plan or intent. no HI/AVH. she fully understood the risk and benefit from BL ECT including potential and permanent memory loss before she signed the ICF. QIDS=15; MOCA=22 She was awake, alert, cooperative, and pleasant. good eye contact. oriented x3. speech was normal. affect was appropriate with smile. mood - ok. denied having SI/HI/AVH during the interview. no delusional thought. I/J were fair. memory was ok. attention and concentration were adequate. Tolerated ECT well no complication Imp: bipolar I depression, recurrent, highly moderate to low severe Plan: continue acute ECT 3 times a week. Alanis Cornejo MD. Electronic Signatures: Alanis Cornejo) (Signed 24-Oct-2018 08:43) Authored: Event Last Updated: 24-Oct-2018 08:43 by Alanis Cornejo) [facility] Homegoing Instructionson Homegoing Instructions Additional Instructions: Medication Information: Medication Instructions Do not have anything by mouth after midnight the night before your treatment unless instructed otherwise. You may have clear liquids up until 6 hours prior to your appointment. Take the following medications with a sip of water in the morning prior to ECT: Protonix Do not take the following medication(s) after 4:00 PM the night before or morning of ECT: Athalia, klonopin Appointments: Service/Clinician NameECT- Please stop at Registration 10-15 minutes prior to your appointment time. Date/[id number] 07:[address] [facility], [address] [address] Third floor [phone] Appointment CommentPlease remember that we must have at least 24 hours notice if you need to cancel your appointment. If you cancel your appointment late or do not show for your appointment 3 times, no additional appointments will be scheduled. It is very important that you arrive for your appointment at or before the scheduled time. If you are more than 10 minutes late, there is a chance that we may have to cancel the appointment. Electronic Signatures: Lexy Hylton (RN) (Signed 24-Oct-2018 09:02) Authored: Additional Instructions Last Updated: 24-Oct-2018 09:02 by Lexy Hylton (MARITZA) [facility] Patient Profile - Preop v2on 10-24-2018 Patient Profile - Preop v2 Profile: Initial Info: How to be AddressedKate Spoken Language PreferredEnglish Source of Informationpatient Are you currently using the Personal Electronic Health Record or ASSET4 Stated Reason for AdmissionECT Primary Contact Name and NumberErick Guajardo [phone] Patient Belongingsremains with patient Patient Belongings Remaining with Patientclothing; cell phone/electronics; purse/wallet; turcios/credit card; vision aids Medications Brought to Hospitalno General Health: Weight in kg72.5 kilogram(s) Weight in tbo511 pound(s) Weight Methodstated Height in cm172.7 centimeter(s) Height in feet5 feet Height in inches8 inch(es) Height Methodstated BMI (kg/m2)24.308 square meter Patient or Family Member Reaction to Anesthesiano previous reaction Blood Avoidance/Restrictionsn one Previous Transfusion Reactionno Health Mgmt: Symptoms/Conditions Managed at Homebehavioral health; cardiovascular; gastrointestinal; HEENT (head, eyes, ears, nose, throat); musculoskeletal; neurological; endocrine Are You Currently Breastfeedingno Behavioral Health Symptoms/Conditionsbipo lar affective disorder; depression; anxiety; post traumatic stress Behavioral Management Strategiescounseling; medication therapy Behavioral Health Symptoms/Conditions CommentInitiated Electroconvulsive Therapy Cardiovascular Symptoms/Conditionsdysr hythmia Cardiovascular Management Strategiesmedication therapy Cardiovascular Symptoms/Conditions CommentA-fib Endocrine Symptoms/Conditions CommentMTHFR mutation Gastrointestinal Symptoms/Conditionsrefl ux/heartburn; constipation Gastrointestinal Management Strategiesmedication therapy Gastrointestinal Symptoms/Conditions CommentGERD HEENT Symptoms/Conditionsvisi on problem(s) HEENT Management Strategiesmedication therapy HEENT Symptoms/Conditions CommentEnvironmental allergens; stigmatism Musculoskeletal Symptoms/Conditions 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 Neurological Symptoms/Conditionshead trauma Neurological Management Strategiesmedication therapy Neurological Symptoms/Conditions Commentmigraines; hx epilepsy Are You no Barriers to Managing Healthfinancial resources Relationship/Environ: Lives Withparent(s); sibling(s) Living Arrangementshouse Resource/Environmental Concernsfinancial Anticipated [facility] Substance: Current or Former Substance Use never: Cigarette/Tobacco, e-Cigarette/Vaping, Street Drugs YES: Alcohol Alcohol Use Statuspast alcohol Alcohol Frequencymonthly or less Alcohol Last Usecouple years Risk Screens: Advance Directive Medicalno Advance Directive Information Givenpatient/family declined Advance Directive Mental Healthno; information given/requested Advance Directive Information Given (Mental Health)patient/family declined During the past month, have you often been bothered by feeling down, depressed or hopelessyes During the past month, have you often had little interest or pleasure in doing thingsyes Have you had any thoughts of harming yourselfyes Have you had any thoughts of harming anyone elseno Suicide/Depression Commentpt admits to having a plan, currently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 Pressure Non-Invasive 87 mm[Hg] JUDY PATTERSON MD [facility] 04-29-2024 08:16-0400 Heart rate 62 /min JUDY PATTERSON MD [facility] 04-29-2024 08:16-0400 Respiratory rate 16 /min JUDY PATTERSON MD [facility] 04-29-2024 08:16-0400 Systolic Blood Pressure Non-Invasive 136 mm[Hg] JUDY PATTERSON MD [facility] 04-16-2024 21:44-0400 Body temperature 96.8 [degF] DR CHAUNCEY ROMERO MD [facility] 04-16-2024 21:44-0400 Diastolic Blood Pressure Non-Invasive 89 mm[Hg] DR CAHUNCEY ROMERO MD [facility] 04-16-2024 21:44-0400 Heart rate 91 /min DR CHAUNCEY ROMERO MD [facility] 04-16-2024 21:44-0400 Respiratory rate 16 /min DR CHAUNCEY ROMERO MD [facility] 04-16-2024 21:44-0400 Systolic Blood Pressure Non-Invasive 130 mm[Hg] DR CHAUNCEY ROMERO MD [facility] 11-23-2019 13:56-0500 BMI (Body Mass Index) 29.35 kg/m2 Adriana Mccallum MG-Psychi atry-Walk er 1st Floor Work Phone: 11-23-2019 13:56-0500 Body weight 87.54 kg Adriana Mccallum UD-Gxwfnhcswa-V alk er 1st Floor Work Phone: 11-23-2019 13:56-0500 BP Diastolic 77 mm[Hg] Adriana Mccallum XV-Bxoaukrper-S alk er 1st Floor Work Phone: 11-23-2019 13:56-0500 BP Systolic 118 mm[Hg] Adriana Mccallum RC-Xrndorcerm-V alk er 1st Floor Work Phone: 11-23-2019 13:56-0500 BSA (Body Surface Area) 2.01 m2 Adriana Mccallum ZC-Ryzggxliey-Rxnf er 1st Floor Work Phone: 11-23-2019 13:56-0500 Pulse (Heart Rate) 75 /min Adriana Mccallum MG-Psychiatr y-Walk er 1st Floor Work Phone: 09-16-2019 06:12-0400 Body Temperature 97.81 [degF] [place], [place] 09-16-2019 06:12-0400 BP Diastolic 69 mm[Hg] [place], [place] 09-16-2019 06:12-0400 BP Systolic 104 mm[Hg] [place] 09-16-2019 06:12-0400 Pulse (Heart Rate) 78 /min [place], [place] 09-16-2019 06:12-0400 Pulse Oximetry 98 % [place] 09-16-2019 06:12-0400 Respiratory Rate 18 /min [place], [place] 09-13-2019 19:23-0400 Body Temperature 98.4 [degF] [facility], [place] 09-13-2019 19:23-0400 BP Diastolic 79 mm[Hg] [place], [place] 09-13-2019 19:23-0400 BP Systolic 115 mm[Hg] [facility] , [place] 09-13-2019 19:23-0400 Pulse (Heart Rate) 81 /min [facility] 09-13-2019 19:23-0400 Pulse Oximetry 98 % [facility] , [place] 09-13-2019 19:23-0400 Respiratory Rate 16 /min [facility] 09-13-2019 15:21-0400 BMI (Body Mass Index) 30.41 kg/m2 [facility], [place] 09-13-2019 15:21-0400 Body weight 90.72 kg [facility] , [place] 09-13-2019 15:21-0400 Height 172.7 cm [place], [place] 04-28-2018 16:50-0400 BP Diastolic 68 mm[Hg] [facility] , [place] 04-28-2018 16:50-0400 BP Systolic 110 mm[Hg] [place] 04-28-2018 16:50-0400 Pulse (Heart Rate) 76 /min [facility], [place] 04-28-2018 16:50-0400 Pulse Oximetry 96 % [place] 04-28-2018 16:50-0400 Respiratory Rate 14 /min [facility], [place] 04-28-2018 16:12-0400 Body Temperature 98.6 [degF] [place], [place] 04-28-2018 13:26-0400 BMI (Body Mass Index) 25.47 kg/m2 [facility], [place] 04-28-2018 13:26-0400 Body weight 75.98 kg [facility] , [place] 04-28-2018 13:14-0400 Height 172.7 cm [place] Encounters Encounter Date Encounter Type Care Provider Facility Start: 09-04-2025 ambulatory Paz Melgar y:[facility] Start: 08-14-2025 End: 08-14-2025 ambulatory Danny Pink [place] Facility:[facility] Start: 08-09-2025 End: 08-09-2025 Emergency department patient visit Danny Wrightlay Facility:[facility] Start: 07-20-2025 End: 07-20-2025 ambulatory Danny Pink [place] Facility:[facility] Start: 06-27-2025 ambulatory Danny Pink [place] Facility :[facility] Start: 06-09-2025 End: 06-09-2025 Letter encounter [facility] Start: 05-07-2025 ambulatory Adriana VAN Facilit y:[facility] Start: 04-20-2025 End: 04-20-2025 ambulatory Adriana VAN Facility:[facility] Start: 04-20-2025 End: 04-20-2025 ambulatory Adriana VAN Facility:[facility] Start: 04-02-2025 End: 04-02-2025 ambulatory [facility] Start: 03-22-2025 End: 03-22-2025 Refill Paz Martin PA-C Work Phone: [facility] Comment on above: Refill Request Start: 03-15-2025 End: 03-16-2025 Emergency department patient visit DANNY LEA Facility:[facility] Start: 03-15-2025 End: 03-16-2025 Admission to [facility] 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 Lares 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 Work Phone: [facility] Start: 03-15-2025 End: 03-16-2025 ambulatory Iban Lares [facility] Work Phone: [facility] Intake Comment on above: Psychiatric Problem Start: 03-13-2025 End: 03-13-2025 Emergency department patient visit Danny Lea Facility:[facility] Start: 02-15-2025 End: 02-15-2025 ambulatory [facility] Start: 02-08-2025 End: 02-08-2025 ambulatory [facility] Ambulatory Start: 01-29-2025 End: 01-29-2025 Patient encounter procedure Dorian Jeffers MD Work Phone: Cardiology Comment on above: AF (paroxysmal atria l fibrillation) (HCC) (Primary Dx) Start: 01-29-2025 End: 01-29-2025 ambulatory DORIAN JEFFERS Facility:[facility] Start: 12-29-2024 End: 12-29-2024 ambulatory Deja Schmitz [facility] Work Phone: [facility] Start: 12-29-2024 End: 12-29-2024 Chart abstracting Deja Schmitz [facility] Work Phone: [facility] Start: 12-26-2024 End: 12-26-2024 ambulatory [facility] Ambulatory Start: 12-18-2024 End: 12-18-2024 ambulatory Deja Schmitz [facility] Work Phone: [facility] Start: 12-18-2024 End: 12-18-2024 Chart abstracting Deja Schmitz [facility] Work Phone: [facility] Start: 12-18-2024 End: 12-18-2024 Telephone encounter Deja Schmitz [facility] Work Phone: [facility] Start: 12-14-2024 End: 03-13-2025 ambulatory [facility] Start: 12-14-2024 End: 12-14-2024 ambulatory [facility] Ambulatory Start: 12-08-2024 End: 12-11-2024 Evaluation and management of inpatient JOSE ALAKae Facility:[facility] Start: 12-07-2024 End: 12-07-2024 Emergency department patient visit UNKNOWN PROVIDER Facility:[facility] Start: 12-07-2024 End: 12-07-2024 ambulatory [facility] Ambulatory Start: 12-05-2024 Emergency department patient visit DANNY LEA Facility:[facility] Start: 12-04-2024 End: 12-04-2024 ambulatory [facility] Ambulatory Start: 11-27-2024 End: 11-27-2024 Orders Only Dorian Jeffers MD Work Phone: Cardiology Comment on above: Paroxysmal A-fib (HC C) (Primary Dx) Refill Request Start: 11-23-2024 End: 11-23-2024 Refill Dorian Jeffers MD Work Phone: Cardiology Comment on above: Refill Request Start: 11-17-2024 End: 11-17-2024 ambulatory [facility] Ambulatory Start: 11-15-2024 End: 11-16-2024 Refill Paz Martin PA-C Work Phone: [facility] Comment on above: Refill Request Start: 11-12-2024 Emergency department patient visit DANNY LEA Facility:[facility] Start: 11-01-2024 End: 11-01-2024 ambulatory [facility] Ambulatory Start: 10-29-2024 End: 10-30-2024 Refill Dorian Jeffers MD Work Phone: Cardiology Comment on above: Refill Request Start: 10-25-2024 End: 10-25-2024 ambulatory Juan David No MD Work Phone: [facility] Comment on above: Dyskinesia, tardive (Primary Dx); Insomnia, unspecified type Start: 10-25-2024 End: 10-25-2024 Telemedicine consultation with patient Juan David No MD Work Phone: [facility] Start: 10-10-2024 End: 10-10-2024 ambulatory Danny Pink Hill Facility:[facility] Start: 10-10-2024 End: 10-10-2024 ambulatory Danny Jesus Facility:[facility] Start: 09-20-2024 End: 09-20-2024 ambulatory [facility] Ambulatory Start: 09-13-2024 End: 09-13-2024 ambulatory [facility] Ambulatory Start: 09-08-2024 End: 09-08-2024 Orders Only Blanca Momin MD Work Phone: [facility] Comment on above: Abnormal TSH (Primar y Dx); Thyrotoxicosis without thyroid storm, 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 Start: 08-29-2024 End: 08-29-2024 ambulatory [facility] Ambulatory Start: 08-17-2024 End: 08-17-2024 ambulatory [facility] Ambulatory Start: 08-01-2024 End: 08-01-2024 ambulatory [facility] Ambulatory Start: 07-27-2024 End: 07-28-2024 Refill Paz Martin PA-C Work Phone: [facility] Comment on above: Refill Request Start: 07-22-2024 End: 07-23-2024 Emergency department patient visit AMAN HORNE DO [facility] Start: 07-11-2024 End: 07-11-2024 ambulatory [facility] Facility:[facility] Start: 07-11-2024 End: 07-12-2024 Refill Dorian Jeffers MD Work Phone: Cardiology Comment on above: Refill Request Start: 07-05-2024 End: 07-05-2024 ambulatory [facility] Facility:[facility] Start: 06-23-2024 End: 06-23-2024 ambulatory [facility] Ambulatory Start: 06-21-2024 Telephone encounter Desiree jha PA-C Work Phone: [facility] Comment on above: Appointment Start: 06-21-2024 End: 06-21-2024 Patient encounter procedure Desiree William PA-C Work Phone: [facility] Comment on above: Nausea (Primary Dx); Vomiting without nausea, unspecified vomiting type; Irritable bowel syndrome with constipation Start: 06-21-2024 End: 06-21-2024 Telemedicine consultation with patient Desiree Alysa MANUEL Work Phone: [facility] Start: 06-21-2024 End: 06-21-2024 ambulatory DESIREE WILLIAM [facility] Start: 06-20-2024 End: 06-20-2024 ambulatory Blanca Momin MD Work Phone: Endocrinology Comment on above: Thyrotoxicosis witho ut thyroid storm, unspecified thyrotoxicosis type (Primary Dx) Start: 06-20-2024 End: 06-20-2024 Telemedicine consultation with patient Blanca Momin MD Work Phone: Endocrinology Start: 06-01-2024 E-mail encounter fro m caregiver Desiree William PA-C Work Phone: [facility] Start: 06-01-2024 Patient encounter procedure Desiree William PA-C Work Phone: [facility] [facility] Comment on above: Appointment Request Start: 05-23-2024 End: 05-23-2024 ambulatory TIMMY Pal [facility] Start: 05-23-2024 End: 05-23-2024 ambulatory [facility] Ambulatory Start: 05-20-2024 Refill Desiree Orozco Work Phone: [facility] Comment on above: Refill Request Start: 05-11-2024 End: 05-11-2024 ambulatory [facility] Start: 04-29-2024 End: 04-29-2024 Emergency department patient visit JUDY PATTERSON MD [facility] Start: 04-16-2024 End: 04-16-2024 Emergency department patient visit DR CHAUNCEY ROMERO MD [facility] Start: 04-11-2024 End: 04-11-2024 ambulatory TIMMY Pal [facility] Start: 04-06-2024 End: 04-06-2024 ambulatory [facility] Start: 03-25-2024 Refill Paz Cristin farnsworth PA-C Work Phone: [facility] Comment on above: Refill Request Start: 03-23-2024 End: 03-23-2024 ambulatory [facility] Start: 12-29-2023 E-mail encounter fro m caregiver Desiree VAN-C Work Phone: [facility] Start: 12-29-2023 Follow-up encounter Desiree jha PA-C Work Phone: [facility] Comment on above: follow up after toda y Start: 12-29-2023 Telephone encounter Desiree jha PA-C Work Phone: [facility] Comment on above: Orders Start: 12-29-2023 End: 12-29-2023 ambulatory Desiree VAN-C Work Phone: [facility] Comment on above: Gastroesophageal ref lux disease, unspecified whether esophagitis present (Primary Dx); BRBPR (bright red blood per rectum); Dyspepsia Start: 12-29-2023 End: 12-29-2023 Telemedicine consultation with patient Desiree VAN-C Work Phone: [facility] Start: 12-14-2023 Preprocedural examin ation done Desiree VAN-C Work Phone: [facility] Work Phone: Start: 10-02-2023 Refill Gene franco MD Work Phone: Cardiology Comment on above: Refill Request Start: 09-28-2023 Admission to establishment Quinton Sequeira RN [facility] Start: 09-28-2023 ambulatory Quinton Sequeira RN [facility] Comment on above: Psychiatric Problem Start: 09-18-2023 Refill Desiree Orozco Work Phone: [facility] Comment on above: Med Change Request Start: 08-12-2023 Patient encounter procedure Timmy Pal Esterle Work Phone: YX-Vjkehsrszx-Ehwiyz [facility] Work Phone: Start: 08-11-2023 Patient encounter procedure Timmy Pal Esterle Work Phone: JU-Kafswzzofw-DFNI [address] [place] Work Phone: Start: 08-10-2023 [facility], Provider: Hugo Montana, Status: Pen, Time: 12:30 PM Timmy M Esterle Work Phone: IL-Ornqatydad-Wpvnze [facility] Work Phone: Start: 08-10-2023 Telephone encounter Leia white MD Work Phone: [facility] Comment on above: Appointment Start: 08-09-2023 Patient encounter procedure Timmy M Esterle Work Phone: UO-Bmtiprmxrc-Xlwtlr [facility] Work Phone: Start: 08-05-2023 Patient encounter procedure Timmy Kae Esterle Work Phone: JI-Ofxmxlxphn-Jpdilf [facility] Work Phone: Start: 08-04-2023 Patient encounter procedure Timmy Kae Esterle Work Phone: FD-Xmapkppest-Bsfsug [facility] Work Phone: Start: 07-22-2023 Office outpatient vi sit 25 minutes Timmy Kae Esterle Work Phone: TT-Mnriqmzxpo-Hivbej [address] [place] Work Phone: Start: 07-15-2023 Patient encounter procedure Timmy M Esterle Work Phone: FF-Nvmygnytsk-Blbtat [address] [place] Work Phone: Start: 06-25-2023 Telephone encounter Timmy Pal Est erle Work Phone: BZ-Kfielbfnqm-Fwtzmb [address] [place] Work Phone: Start: 06-16-2023 Rx Renewal Timmy Pal Esterle Work Phone: TK-Vtnuvphcts-Fdwxsl [address] [place] Work Phone: Start: 06-11-2023 Office outpatient vi sit 25 minutes Timmy M Esterle Work Phone: FH-Mlczvbmhps-Lgzqlq [address] [place] Work Phone: Start: 05-25-2023 AUDIT Timmy Pal Esterle Work Phone: RU-Yqtuwtxxgu-Tuuahc [address] [place] Work Phone: Start: 05-06-2023 Office outpatient vi sit 25 minutes Timmy M Esterle Work Phone: SK-Ejibavdkes-Lodksy [address] [place] Work Phone: Start: 04-28-2023 AUDIT Timmy Pal Esterle Work Phone: QN-Rjkapfnbbp-Idpyoh [address] [place] Work Phone: Start: 04-22-2023 Orders Only Dorian Jeffers MD Work Phone: Cardiology Comment on above: Paroxysmal atrial fi brillation (HCC) (Primary Dx) Start: 03-05-2023 Office outpatient vi sit 40 minutes Timmy M Esterle Work Phone: ZS-Orwomshvqw-Vabrwu [address] [place] Work Phone: Start: 02-17-2023 Chart Update Timmy M Esterle Work Phone: SL-Mlfyglzjaf-Izemwt [address] [place] Work Phone: Start: 02-15-2023 Chart Update Timmy M Esterle Work Phone: QO-Kwfclxjigt-Whrrqi [address] [place] Work Phone: Start: 01-15-2023 Chart Update Timmy Pal Esterle Work Phone: JZ-Rnsoawwtlh-QVOL [place] [address] [place] Work Phone: Start: 01-14-2023 Patient encounter procedure Timmy Pal Esterle Work Phone: CH-Cusuxnziji-[address]zd[address] Work Phone: Start: 01-13-2023 Patient encounter procedure Timmy Pal Esterle Work Phone: YY-Ookpvbrwvt-Yhhco [address] Work Phone: Start: 01-12-2023 Patient encounter procedure Timmy Pal Esterle Work Phone: JV-Grqldqjusn-GUOS [place] [address] [place] Work Phone: Start: 01-11-2023 Patient encounter procedure Timmy Pal Esterle Work Phone: EQ-Qilhrwsqfo-MZSP [place] [address] [place] Work Phone: Start: 01-07-2023 Chart Update Timmy Pal Esterle Work Phone: YX-Mgmwdhnked-Nbrap [address] Work Phone: Start: 01-07-2023 Patient encounter procedure Timmy Pal Esterle Work Phone: LA-Jyurgquvyx-Jzydz [address] Work Phone: Start: 01-06-2023 Patient encounter procedure Timmy Pal Esterle Work Phone: [facility] [address] [place] Work Phone: Start: 01-04-2023 Patient encounter procedure Timmy Pal Esterle Work Phone: RK-Arqgyfwxjx-WBOA [address] [place] Work Phone: Start: 12-31-2022 Patient encounter procedure Timmy Pal Esterle Work Phone: YF-Cvgmyxdaip-Qruwe [address] Work Phone: Start: 12-30-2022 Patient encounter procedure Timmy Pal Esterle Work Phone: VI-Dehvabzvgb-IYHQ [place] [address] [place] Work Phone: Start: 12-29-2022 Patient encounter procedure Timmy Pal Esterle Work Phone: FL-Joqovpcdbx-EPHG [address] [place] Work Phone: Start: 12-25-2022 Chart Update Timmy Pal Esterle Work Phone: LU-Mylhosujqg-Lapwi [address] Work Phone: Start: 12-23-2022 Patient encounter procedure Timmy Pal Esterle Work Phone: UV-Kdyhbdfzpq-Addngb [address] [place] Work Phone: Start: 12-22-2022 Patient encounter procedure Timmy Pal Estersoo Work Phone: [facility] [address] [place] Work Phone: Start: 12-17-2022 Chart Update Timmy Pal Esterle Work Phone: HV-Pwcjuaedlj-Kevif [address] Work Phone: Start: 12-15-2022 Chart Update Timmy Pal Esterle Work Phone: PV-Ajezvvwkvm-HIPY [address] [place] Work Phone: Start: 12-14-2022 Patient encounter procedure Timmy Pal Esterle Work Phone: VK-Ebjrhfizkb-HKRQ [address] [place] Work Phone: Start: 12-10-2022 Patient encounter procedure Timmy Pal Esterle Work Phone: FD-Tmieabviji-Ljdli [address] Work Phone: Start: 12-09-2022 Patient encounter procedure Timmy Pal Esterle Work Phone: [facility] [address] [place] Work Phone: Start: 12-08-2022 Patient encounter procedure Timmy Pal Esterle Work Phone: VN-Qdasxsmses-EBEB [place] [address] [place] Work Phone: Start: 12-07-2022 Office outpatient vi sit 25 minutes Timmy Pal Esterle Work Phone: [facility] [address] [place] Work Phone: Start: 12-07-2022 Patient encounter procedure Timmy Pal Estersoo Work Phone: [facility] [address] [place] Work Phone: Start: 12-04-2022 Chart Update Timmy Pal Esterle Work Phone: BG-Ivhnscqush-Vmphy [address] Work Phone: Start: 12-02-2022 Patient encounter procedure Timmy Pal Esterle Work Phone: DQ-Cdvqcpcavl-Xwpyg [address] Work Phone: Start: 12-01-2022 HENRIETTA, Provider : Adriana Mccallum, Status: Pen, Time: 11:30 AM Timmy Pal Esterle Work Phone: VE-Uysfivpoze-DKNR [place] [address] [place] Work Phone: Start: 12-01-2022 Patient encounter procedure Timmy Pal Esterle Work Phone: WV-Ucdmszdnoc-FIKY [place] [address] [place] Work Phone: Start: 11-30-2022 Patient encounter procedure Timmy Pal Esterle Work Phone: CF-Tinngkmywj-PQOK [place] [address] [place] Work Phone: Start: 11-26-2022 Patient encounter procedure Timmy Pal Esterle Work Phone: XH-Bmrjmlavsc-Tqwgb [address] Work Phone: Start: 11-23-2022 Patient encounter procedure Timmy Pal Esterle Work Phone: [facility] [address] [place] Work Phone: Start: 11-18-2022 Office outpatient vi sit 40 minutes Timmy Pal Esterle Work Phone: NV-Jknhbstlvv-Yjvuui [address] [place] [address] Work Phone: Start: 11-18-2022 Patient encounter procedure Timmy M Esterle Work Phone: TF-Drnsgpoyhz-Uyjeqv [address] [place] Work Phone: Start: 10-15-2022 Office outpatient vi sit 25 minutes Timmy M Esterle Work Phone: AU-Btajaljnfa-Hcpfor [address] [place] Work Phone: Start: 09-25-2022 Chart Update Timmy M Esterle Work Phone: HE-Hfmkwrlmko-Gzpzxz [address] [place] Work Phone: Start: 09-22-2022 Rx Renewal Timmy M Esterle Work Phone: IJ-Ylhbpcfwby-Mzkpnz [address] [place] Work Phone: Start: 09-03-2022 Office outpatient vi sit 15 minutes Timmy M Esterle Work Phone: OW-Erznntvbrg-Xrkwvn [address] [place] Work Phone: Start: 08-29-2022 Rx Renewal Timmy M Esterle Work Phone: MC-Nvkmhnjwwo-Rqleda [address] [place] Work Phone: Start: 08-27-2022 Refill Didi Castillo i, MD Work Phone: Cardiology Comment on above: Refill Request Start: 08-06-2022 Office outpatient vi sit 25 minutes Timmy M Esterle Work Phone: CG-Nmkmgfwxlg-Ensdqh [address] [place] Work Phone: Start: 08-03-2022 Chart Update Timmy M Esterle Work Phone: NR-Hrfdzwesmj-Zoxjzy [address] [place] Work Phone: Start: 07-09-2022 Office outpatient vi sit 15 minutes Timmy M Esterle Work Phone: BD-Wvfjqlayzd-Fmlxjz [address] [place] Work Phone: Start: 07-09-2022 HENRIETTA, Provider : Adriana Mccallum, Status: Pen, Time: 11:30 AM Timmy M Esterle Work Phone: QH-Yrpctpdtni-Aiupww [address] [place] Work Phone: Start: 07-08-2022 Patient encounter procedure Timmy Pal Esterle Work Phone: QR-Nxmbatbwxh-Wgxmel [address] [place] Work Phone: Start: 07-06-2022 Rx Renewal Timmy Pal Esterle Work Phone: LJ-Mzcdawbjcs-Qwbeie [address] [place] Work Phone: Start: 06-30-2022 AUDIT Timmy Pal Esterle Work Phone: EA-Nuulncfugp-Wlzdec [address] [place] Work Phone: Start: 06-29-2022 Chart Update Timmy Pal Esterle Work Phone: IY-Czleqrnwtv-Gojino [address] [place] Work Phone: Start: 06-24-2022 Patient encounter procedure Timmy Pal Esterle Work Phone: VR-Hwtsjjnfmg-Hscjhb [address] [place] Work Phone: Start: 06-03-2022 Office outpatient vi sit 15 minutes Timmy M Esterle Work Phone: GF-Qfcbhentvx-Qiuqhh [address] [place] Work Phone: Start: 06-03-2022 Patient encounter procedure Timmy M Esterle Work Phone: VY-Oeoacoheak-Bwbiep [address] [place] Work Phone: Start: 05-29-2022 Patient encounter procedure Timmy M Esterle Work Phone: OQ-Arjkukpmok-Whqmqa [address] [place] Work Phone: Start: 05-26-2022 AUDIT Timmy M Esterle Work Phone: TE-Xhrnthntvl-Kobuow [address] [place] Work Phone: Start: 05-15-2022 Patient encounter procedure Timmy M Esterle Work Phone: ML-Oqnshmkuxa-Uxzvrh [address] [place] Work Phone: Start: 04-29-2022 Office outpatient vi sit 25 minutes Timmy M Esterle Work Phone: CO-Dejuotyjmp-Tkemfz [address] [place] Work Phone: Start: 04-29-2022 Patient encounter procedure Timmy M Esterle Work Phone: LV-Lfjrbqavyt-Msjefn [address] [place] Work Phone: Start: 04-24-2022 Rx Renewal Timmy Pal Esterle Work Phone: OT-Odeobintwd-Usujae [address] [place] Work Phone: Start: 04-03-2022 Patient encounter procedure Timmy Pal Esterle Work Phone: PY-Ybyqndnmyd-Dfyqpz [address] [place] Work Phone: Start: 04-01-2022 Office outpatient vi sit 15 minutes Timmy M Esterle Work Phone: XP-Bjemvraaoo-Lorhes [address] [place] Work Phone: Start: 03-26-2022 AUDIT Timmy M Esterle Work Phone: YT-Bluxmnsgba-Pkodgz [address] [place] Work Phone: Start: 03-24-2022 Patient encounter procedure Timmy M Esterle Work Phone: VY-Kktdjnqnrv-Yajkxp [address] [place] Work Phone: Start: 02-25-2022 Office outpatient vi sit 15 minutes Timmy M Esterle Work Phone: HT-Zxpserygbp-Ballhz [address] [place] Work Phone: Start: 02-25-2022 Patient encounter procedure Timmy M Esterle Work Phone: AA-Hilgyhwjpf-Exmtmn [address] [place] Work Phone: Start: 02-25-2022 Telephone encounter Dorian stover MD Work Phone: Cardiology Comment on above: Patient Update Start: 02-17-2022 AUDIT Timmy M Esterle Work Phone: TY-Jusinaqcic-Hqipxc [address] [place] Work Phone: Start: 01-28-2022 Office outpatient vi sit 25 minutes Timmy M Esterle Work Phone: KZ-Igcdvcftcy-Sorpuk [address] [place] Work Phone: Start: 01-23-2022 Rx Renewal Timmy M Esterle Work Phone: CN-Tnhbtqgzqh-Sjhtyq [address] [place] Work Phone: Start: 01-14-2022 Patient encounter procedure Timmy M Esterle Work Phone: DN-Volptdmthr-Xqqdku [address] [place] Work Phone: Start: 01-07-2022 Patient encounter procedure Timmy M Esterle Work Phone: EK-Vqgwxfixof-Ahtatf [address] [place] Work Phone: Start: 12-31-2021 Patient encounter procedure Timmy Kae Esterle Work Phone: GV-Nuntsequmb-Hxtmqt [address] [place] Work Phone: Start: 12-31-2021 Office outpatient vi sit 15 minutes Timmy Kae Esterle Work Phone: NQ-Ndcbindzpp-Vcfwvv [address] [place] Work Phone: Start: 12-31-2021 [facility] : Adriana Mccallum, Status: Pen, Time: 1:30 PM Timmy Kae Esterle Work Phone: AL-Ccpbvmogws-Azxenp [address] [place] Work Phone: Start: 12-29-2021 Rx Renewal Timmy M Esterle Work Phone: IE-Pyictakrnx-Btnjkx [address] [place] Work Phone: Start: 12-11-2021 Rx Renewal Timmy M Esterle Work Phone: ED-Muwkjlhdjl-Xiqsom [address] [place] Work Phone: Start: 12-01-2021 Office outpatient vi sit 25 minutes Timmy M Esterle Work Phone: OA-Bngpegmtte-Vjolyx [address] [place] Work Phone: Start: 11-17-2021 Rx Renewal Timmy M Esterle Work Phone: TP-Yizmkldchu-Lnpaef [address] [place] Work Phone: Start: 11-03-2021 Patient encounter procedure Timmy M Esterle Work Phone: KW-Kpzytupupv-Cglxic [address] [place] Work Phone: Start: 10-30-2021 Office outpatient vi sit 25 minutes Timmy M Esterle Work Phone: OP-Jukczecjsl-Ppcxhp [address] [place] Work Phone: Start: 10-30-2021 Patient encounter procedure Timmy Pal Esterle Work Phone: WX-Kkpdiqddan-Afigai [address] [place] Work Phone: Start: 10-30-2021 HENRIETTA, Provider : Adriana Mccallum, Status: Pen, Time: 2:30 PM Timmy Kae Esterle Work Phone: UO-Czwelvjpff-Cbueat [address] [place] Work Phone: Start: 10-29-2021 Chart Update Timmy Kae Esterle Work Phone: PV-Yzxufthhgl-Esqeuj [address] [place] Work Phone: Start: 10-27-2021 Rx Renewal Timmy Kae Esterle Work Phone: SD-Uolecbamoj-Feyspl [address] [place] Work Phone: Start: 10-24-2021 AUDIT Timmy Kae Esterle Work Phone: FN-Eoiusamqqu-Hmfjue [address] [place] Work Phone: Start: 10-22-2021 Rx Renewal Timmy Kae Esterle Work Phone: HV-Wzobxwtvxb-Nbylmo [address] [place] Work Phone: Start: 10-03-2021 Chart Update Timmy M Esterle Work Phone: AH-Jgyspptoes-Dzcnmn [facility] Work Phone: Start: 10-03-2021 HENRIETTA, Provider : Klever Garza, Status: Pen, Time: 10:00 AM Timmy M Esterle Work Phone: RG-Mupiklexbg-Jrjhre [address] [place] Work Phone: Start: 10-03-2021 Patient encounter procedure Timmy Pal Esterle Work Phone: AK-Hrhizqqufw-Ybwglv [facility] Work Phone: Start: 10-01-2021 Patient encounter procedure Timmy Pal Esterle Work Phone: JS-Fptqcylwun-Dyplly [address] [place] Work Phone: Start: 09-30-2021 Rx Renewal Timmy Pal Esterle Work Phone: DI-Ofeybivumw-Rsfcqe [address] [place] Work Phone: Start: 09-29-2021 Patient encounter procedure Timmy Pal Esterle Work Phone: QC-Imgwgllvrp-Wznyop [facility] Work Phone: Start: 09-26-2021 Chart Update Timmy Pal Esterle Work Phone: RO-Bpspxkuqsu-Mrvijd [facility] Work Phone: Start: 09-26-2021 HENRIETTA, Provider : Klever Garza, Status: Pen, Time: 10:00 AM Timmy Pal Esterle Work Phone: ID-Mmuhfauzbd-Lrmqtk 1162 Work Phone: Start: 09-26-2021 Patient encounter procedure Timmy Pal Esterle Work Phone: CD-Dojtekoiwj-Hmdbwa [facility] Work Phone: Start: 09-25-2021 Patient encounter procedure Timmy Pal Esterle Work Phone: NB-Egtutuehtb-Anqlfm [address] [place] Work Phone: Start: 09-24-2021 Patient encounter procedure Timmy Pal Esterle Work Phone: BK-Znzgjrtfyb-Lzvqak [address] [place] [address] Work Phone: Start: 09-23-2021 Patient encounter procedure Timmy Pal Esterle Work Phone: RL-Giupggdmes-Wagkrd [facility] Work Phone: Start: 09-22-2021 Patient encounter procedure Timmy Tripathi Work Phone: NS-Nxnsidfrrw-Klgbih [facility] Work Phone: Start: 09-19-2021 Chart Update Timmy Tripathi Work Phone: MR-Lzcauavrpz-Usobja [facility] Work Phone: Start: 09-19-2021 Patient encounter procedure Timmy Tripathi Work Phone: DO-Wqzgpyksap-Evixqh [facility] Work Phone: Start: 09-16-2021 Patient encounter procedure Timmy Tripathi Work Phone: AH-Uauowujsmj-Nejwyw [facility] Work Phone: Start: 09-15-2021 Patient encounter procedure Timmy Tripathi Work Phone: XN-Zhntxsepmh-Cesnrr [facility] Work Phone: Start: 09-11-2021 Chart Update Timmy Tripathi Work Phone: JX-Nevvxficks-Vknque [facility] Work Phone: Start: 09-10-2021 HENRIETTA, Provider : Klever Garza, Status: Pen, Time: 10:00 AM Timmy Tripathi Work Phone: HF-Manvbchwqc-Fercik [address] [place] Work Phone: Start: 09-10-2021 Patient encounter procedure Timmy Tripathi Work Phone: ES-Ddgvdwzrhk-Uprsmd [facility] Work Phone: Start: 09-09-2021 Patient encounter procedure Timmy Tripathi Work Phone: NB-Cvlwlxuxis-Gnuads [facility] Work Phone: Start: 09-08-2021 Rx Renewal Timmy Philiple Work Phone: IB-Igpmjiifph-Mvhdru [address] [place] Work Phone: Start: 09-08-2021 Patient encounter procedure Timmy Pal Esterle Work Phone: OJ-Ymtlkffzrt-Vwlsjc [facility] Work Phone: Start: 09-05-2021 Office outpatient vi sit 15 minutes Timmy Kae Esterle Work Phone: CI-Fguhcwfwcm-Tasclk [facility] Work Phone: Start: 09-05-2021 HENRIETTA, Provider : Klever Garza, Status: Pen, Time: 10:00 AM Timmy Kae Esterle Work Phone: YB-Nxbfwauaqt-Yhjtpu [facility] Work Phone: Start: 09-05-2021 Patient encounter procedure Timmy Pal Esterle Work Phone: CY-Fkdbbcdudl-Mmdufi [facility] Work Phone: Start: 09-04-2021 Patient encounter procedure Timmy Pal Esterle Work Phone: DC-Ofpizdqcxw-Snzxcv [facility] Work Phone: Start: 09-02-2021 Patient encounter procedure Timmy M Esterle Work Phone: TQ-Gheyahyvbf-Zpnymp [facility] Work Phone: Start: 09-01-2021 Patient encounter procedure Timmy Pal Esterle Work Phone: PX-Netxrctqpe-Cmxtvw [facility] Work Phone: Start: 08-29-2021 Patient encounter procedure Timmy Kae Esterle Work Phone: MR-Zsevzmtton-Ckpbuy 1162 Work Phone: Start: 08-28-2021 HENRIETTA, Provider : Klever Garza, Status: Pen, Time: 10:00 AM Timmy Kae Esterle Work Phone: NK-Qpqsvzsuad-Gzgwtd 1162 Work Phone: Start: 08-28-2021 Patient encounter procedure Timmy M Esterle Work Phone: UT-Oyicmknqgb-Tmqkdx [facility] Work Phone: Start: 08-27-2021 Patient encounter procedure Timmy M Esterle Work Phone: XF-Bcsvkqqixd-Wtcjsh [address] [place] Work Phone: Start: 08-25-2021 Patient encounter procedure Timmy M Esterle Work Phone: RJ-Prdvcyqzan-Fwwryv [facility] Work Phone: Start: 08-22-2021 Office outpatient vi sit 15 minutes Timmy Kae Esterle Work Phone: ZF-Atddeswyvq-Ohsnzx [facility] Work Phone: Start: 08-22-2021 HENRIETTA, Provider : Klever Garza, Status: Pen, Time: 9:00 AM Timmy Kae Esterle Work Phone: VU-Gclgllxbbv-Fnlemx [facility] Work Phone: Start: 08-20-2021 Patient encounter procedure Timmy M Esterle Work Phone: QR-Mltdkcbbmp-Emlomd [facility] Work Phone: Start: 08-19-2021 Patient encounter procedure Timmy M Esterle Work Phone: DN-Kyfsbsurjr-Thqsen [address] [place] [address] Work Phone: Start: 08-18-2021 Patient encounter procedure Timmy M Esterle Work Phone: AS-Fnvedswrua-Zvldne [facility] A[facility] Work Phone: Start: 08-15-2021 Office outpatient vi sit 15 minutes Timmy Kae Esterle Work Phone: GO-Jpouphqmwc-Eoemrw [facility] Work Phone: Start: 08-15-2021 HENRIETTA, Provider : Klever Garza, Status: Pen, Time: 10:00 AM Timmy Kae Esterle Work Phone: VR-Aseyltzlhc-Aloggf [facility] Work Phone: Start: 08-15-2021 HENRIETTA, Provider : Adriana Mccallum, Status: Pen, Time: 9:30 AM Timmy Pal Esterle Work Phone: VB-Sqqmznedlg-Tepiby [facility] Work Phone: Start: 08-15-2021 Chart Update Timmy Pal Esterle Work Phone: NT-Gwxqyxxsov-Ysmfip [facility] Work Phone: Start: 08-13-2021 Patient encounter procedure Timmy Pal Esterle Work Phone: ZO-Cvrrqpglhr-Tdeisf [facility] Work Phone: Start: 08-07-2021 Patient encounter procedure Timmy M Esterle Work Phone: WB-Oomhtycdiq-Owgygu [address] [place] Work Phone: Start: 08-01-2021 Patient encounter procedure Timmy M Esterle Work Phone: BV-Wsgqhscixl-Obtmua [address] [place] Work Phone: Start: 07-25-2021 Patient encounter procedure Timmy M Esterle Work Phone: VS-Mwtrgsjgra-Oormjh [address] [place] Work Phone: Start: 07-14-2021 Patient encounter procedure Timmy M Esterle Work Phone: PW-Fdnyqkacmm-Hsfzod [address] [place] Work Phone: Start: 07-11-2021 Office outpatient vi sit 25 minutes Timmy M Esterle Work Phone: XN-Kvdtcctobq-Hobxlv [address] [place] Work Phone: Start: 06-13-2021 Office outpatient vi sit 25 minutes Timmy M Esterle Work Phone: ZG-Klqkwbbblg-Nkmshj [address] [place] Work Phone: Start: 05-28-2021 Patient encounter procedure Timmy M Esterle Work Phone: UV-Mkoqumugcd-Sjyjfn [address] [place] Work Phone: Start: 05-16-2021 End: 05-16-2021 Subsequent hospital visit by physician Timmy Kae Tamerasoo DO Work Phone: [facility] Comment on above: Other amnesia Start: 05-16-2021 Rx Renewal Timmy Philiple Work Phone: TP-Gvsxeveqmq-Aqetzh [address] [place] Work Phone: Start: 05-14-2021 [facility] : Adriana Mccallum, Status: Pen, Time: 9:00 AM Timmy Pal Esterle Work Phone: OG-Bhhuwkkwnw-Fdyayg [address] [place] Work Phone: Start: 04-22-2021 Office outpatient vi sit 25 minutes Timmy Pal Esterle Work Phone: ZM-Foytmtsrwq-Oqaxuf [address] [place] Work Phone: Start: 04-22-2021 HENRIETTA, Provider : Adriana Mccallum, Status: Pen, Time: 10:00 AM Timmy Pal Esterle Work Phone: HB-Mbdbcnlbmw-Slsixw [address] [place] Work Phone: Start: 04-21-2021 Patient encounter procedure Timmy Tripathi Work Phone: NU-Lkhpwgpvdq-Zrlnpr [address] [place] Work Phone: Start: 04-15-2021 Rx Renewal Timmy Pal Esterle Work Phone: FB-Wubvidhtlu-Slgmxm [address] [place] Work Phone: Start: 03-26-2021 Patient encounter procedure Timmy Pal Esterle Work Phone: ZF-Jeoqyxulew-Csjfto [address] [place] Work Phone: Start: 02-20-2020 Chart abstracting Hsp Historic al Provider [facility] Pre Access Start: 09-13-2019 Patient encounter procedure Timmy Tripathi [facility] [place] Start: 01-14-2018 End: 01-14-2018 Ambulatory [facility] Facility:[facility] Start: 06-16-2017 End: 06-17-2017 Ambulatory [facility] Facility:[facility] Procedures Date Procedure Procedure Detail Performing Clinician Start: 09-08-2024 Thyroid uptake w/blo od flow sngle/mult sabi laury Momin MD Work Phone: Start: 07-08-2022 Psychotherapy w/nat ent 60 minutes Timmy M Esterle Work Phone: Start: 05-29-2022 Psychotherapy w/nat ent 60 minutes Timmy M Esterle Work Phone: Start: 05-15-2022 Psychotherapy w/nat ent 60 minutes Timym M Esterle Work Phone: Start: 04-07-2022 Psychotherapy w/nat ent 60 minutes Timmy M Esterle Work Phone: Start: 03-24-2022 Psychotherapy w/nat ent 60 minutes Timmy M Esterle Work Phone: Start: 03-17-2022 Psychotherapy w/nat ent 60 minutes Timmy M Esterle Work Phone: Start: 03-03-2022 Psychotherapy w/nat ent 60 minutes Timmy M Esterle Work Phone: Start: 02-24-2022 Psychotherapy w/nat ent 60 minutes Timmy M Esterle Work Phone: Start: 02-13-2022 Psychotherapy w/nat ent 60 minutes Timmy M Esterle Work Phone: Start: 01-14-2022 Psychotherapy w/nat ent 60 minutes Timmy M Esterle Work Phone: Start: 01-07-2022 Psychotherapy w/nat ent 60 minutes Timmy M Esterle Work Phone: Start: 12-31-2021 Psychotherapy w/nat ent 60 minutes Timmy M Esterle Work Phone: Start: 11-10-2021 Psychotherapy w/nat ent 45 minutes Timmy M Esterle Work Phone: Start: 10-23-2021 Psychotherapy w/nat ent 60 minutes Timmy M Esterle Work Phone: Start: 08-07-2021 Psychotherapy w/nat ent 60 minutes Timmy M Esterle Work Phone: Start: 08-01-2021 Psychotherapy w/nat ent 60 minutes Timmy M Esterle Work Phone: Start: 07-31-2021 Psychiatric diagnost ic evaluation Timmy M Esterle Work Phone: Start: 07-25-2021 Psychotherapy w/nat ent 60 minutes Timmy M Esterle Work Phone: Start: 07-14-2021 Psychotherapy w/nat ent 60 minutes Timmy M Esterle Work Phone: Start: 06-30-2021 Psychotherapy w/nat ent 60 minutes Timmy M Esterle Work Phone: Start: 06-03-2021 Psychotherapy w/nat ent 45 minutes Timmy M Esterle Work Phone: Start: 05-28-2021 Psychotherapy w/nat ent 60 minutes Timmy M Esterle Work Phone: Start: 05-16-2021 Ct head/brain w/o co ntrast material Timmy M Esterle DO Work Phone: Start: 05-12-2021 Psychotherapy w/nat ent 60 minutes Timmy M Esterle Work Phone: Start: 04-21-2021 Psychotherapy w/nat ent 60 minutes Timmy M Esterle Work Phone: Start: 04-15-2021 Psychotherapy w/nat ent 60 minutes Timmy M Esterle Work Phone: Start: 12-27-2020 Comprehensive metabo lic 2000 panel Adriana Beasley Start: 12-27-2020 Drug screen quantita tive lithium Adriana Beasley Start: 12-27-2020 TSH WITH REFLEX TO F REE T4 IF ABNORMAL Adriana Beasley Start: 03-19-2020 Assay of prolactin Frederick Mccallum Start: 09-19-2019 Basic metabolic 1998 panel - Serum or Plasma Adriana Mccallum Start: 09-19-2019 Drug screen quantita tive lithium Adriana Mccallum Start: 09-19-2019 Lipid panel Adriana bryan Start: 09-19-2019 TSH WITH REFLEX TO F REE T4 IF ABNORMAL Adriana Mccallum Start: 09-15-2019 Hemoglobin glycosylated a1c Crystal Snyder Work Phone: Start: 09-13-2019 Assay of ethanol Galindo Dangelo Work Phone: Start: 09-13-2019 Blood count complete auto&auto difrntl wbc Galindo Dangelo Work Phone: Start: 09-13-2019 Comprehensive metabo lic panel Galindo Dangelo Work Phone: Start: 09-13-2019 Drug screen class list a Galindo Dangelo Work Phone: Start: 09-13-2019 Drug screen quantita tive lithium Galindo Dangelo Work Phone: Start: 09-13-2019 Gonadotropin chorion ic qualitative Galindo SiC Processing Work Phone: Start: 09-13-2019 Urnls dip stick/tabl et rgnt auto w/o microscopy Galindo Dangelo Work Phone: Jaw region structure (body structure) DR CHAUNCEY ROMERO MD Plan of Treatment Date Care Activity Detail Author Start: 2038 Shingles (RZV) Vacci ne (1 of 2) Shingles (RZV) Vaccine (1 of 2) [facility] Start: 2038 Shingles Vaccine (1 of 2) Shingles Vaccine (1 of 2) [place] Start: 12-07-2027 Diabetes mellitus screening Diabetes Screening [facility] Start: 03-02-2026 Urine microalbumin profile DTaP,Tdap,Td Vaccine (2 - Td or Tdap) [facility] Start: 08-15-2025 Influenza vaccination Influenza Vacc ine (#1) [facility] Start: 01-29-2025 End: 01-29-2025 Patient encounter procedure 01/29/2025 5:00 PM EDT Office Visit Cardiology [address] [id number] Dorian Jeffers MD [address] [place] [address] Dx: A fib Cardiology Comment on above: Dx: A fib Start: 01-29-2025 End: 01-29-2025 ambulatory 01/29/2025 4:00 PM EDT Results Only Cardiology [address] [place] [address] Dx: A fib Cardiology Comment on above: Dx: A fib Start: 12-07-2024 Welcome to Medicare Visit (G0402) Welcome to Medicare Visit (G0402) [facility] Start: 11-15-2024 Depression screening Depressio n Annual Screen [facility] Start: 11-15-2024 Screening for substa nce abuse Alcohol and Drug Screen [facility] Start: 10-31-2024 End: 10-31-2024 ambulatory 10/31/2024 11:00 AM EST Results Only [facility] [address] [place] [address] [facility] Start: 10-09-2024 End: 01-08-2025 Thyrotropin [Units/volume] in Serum or Plasma THYROID STIMULATING HORMONE Lab Routine Thyrotoxicosis without thyroid storm, unspecified thyrotoxicosis type Expected: 10/09/2024, Expires: 01/08/2025 [facility] Comment on above: Expected: 10/09/2024 , Expires: 01/08/2025 Start: 10-09-2024 End: 01-08-2025 Thyroxine (T4) free [Mass/volume] in Serum or Plasma T4 FREE/FREE THYROXINE Lab Routine Thyrotoxicosis without thyroid storm, unspecified thyrotoxicosis type Expected: 10/09/2024, Expires: 01/08/2025 [facility] Comment on above: Expected: 10/09/2024 , Expires: 01/08/2025 Start: 10-09-2024 End: 01-08-2025 Triiodothyronine (T3) [Mass/volume] in Serum or Plasma T3 Lab Routine Thyrotoxicosis without thyroid storm, unspecified thyrotoxicosis type Expected: 10/09/2024, Expires: 01/08/2025 [facility] Work Phone: Comment on above: Expected: 10/09/2024 , Expires: 01/08/2025 Start: 09-08-2024 End: 09-08-2024 Patient encounter procedure Nuclear Medicine Comment on above: Thyrotoxicosis witho ut thyroid storm, unspecified thyrotoxicosis type [E05.90] Start: 08-21-2024 End: 08-21-2024 Patient encounter procedure 08/21/2024 1:45 PM EDT Office Visit [facility] Ophthalmology [address] [place] [address] Emelia Lema, OD [address] [place] [address] routine eye Ophthalmology Comment on above: routine eye Start: 07-21-2024 End: 07-21-2024 Patient encounter procedure Nuclear Medicine Comment on above: Thyrotoxicosis witho ut thyroid storm, unspecified thyrotoxicosis type [E05.90] Start: 07-20-2024 End: 07-20-2024 Patient encounter procedure 07/20/2024 8:00 AM EDT Appointment Nuclear Medicine [address] [place] [id number] Thyrotoxicosis without thyroid storm, unspecified thyrotoxicosis type [E05.90] Nuclear Medicine Comment on above: Thyrotoxicosis witho ut thyroid storm, unspecified thyrotoxicosis type [E05.90] Start: 07-16-2024 COVID-19 Vaccine ( season) [facility] ( [facility] Start: 07-16-2024 Influenza vaccination Influenza Vacc ine (#1) [facility] Start: 06-21-2024 End: 06-21-2024 Patient encounter procedure 06/21/2024 9:00 AM EDT [facility] GASTRO DEPARTMENT [address] [place] [address] Desiree William PA-C 1 [facility] [address] [place] [address] Daily nausea and vomiting [facility] Comment on above: Daily nausea and vom iting Start: 06-20-2024 End: 09-19-2024 THYROID PEROXIDASE ANTIBODY THYROID PEROXIDASE ANTIBODY Lab Routine Thyrotoxicosis without thyroid storm, unspecified thyrotoxicosis type Expected: 06/20/2024, Expires: 09/19/2024 [facility] Comment on above: Expected: 06/20/2024 , Expires: 09/19/2024 Start: 06-20-2024 End: 09-19-2024 THYROID STIMULATING IMMUNOGLOBULIN BLOOD THYROID STIMULATING IMMUNOGLOBULIN BLOOD Lab Routine Thyrotoxicosis without thyroid storm, unspecified thyrotoxicosis type Expected: 06/20/2024, Expires: 09/19/2024 [facility] Work Phone: Comment on above: Expected: 06/20/2024 , Expires: 09/19/2024 Start: 06-20-2024 End: 09-19-2024 Thyrotropin [Units/volume] in Serum or Plasma THYROID STIMULATING HORMONE Lab Routine Thyrotoxicosis without thyroid storm, unspecified thyrotoxicosis type Expected: 06/20/2024, Expires: 09/19/2024 [facility] Comment on above: Expected: 06/20/2024 , Expires: 09/19/2024 Start: 06-20-2024 End: 09-19-2024 Thyroxine (T4) free [Mass/volume] in Serum or Plasma T4 FREE/FREE THYROXINE Lab Routine Thyrotoxicosis without thyroid storm, unspecified thyrotoxicosis type Expected: 06/20/2024, Expires: 09/19/2024 [facility] Comment on above: Expected: 06/20/2024 , Expires: 09/19/2024 Start: 06-20-2024 End: 09-19-2024 Triiodothyronine (T3) [Mass/volume] in Serum or Plasma T3 Lab Routine Thyrotoxicosis without thyroid storm, unspecified thyrotoxicosis type Expected: 06/20/2024, Expires: 09/19/2024 [facility] Comment on above: Expected: 06/20/2024 , Expires: 09/19/2024 Start: 04-22-2024 End: 04-22-2024 ECG COMPLETE ECG COMPLETE ECG Routine Paroxysmal atrial fibrillation (HCC) Expected: 04/22/2024, Expires: 04/22/2024 [facility] Work Phone: Comment on above: Expected: 04/22/2024 , Expires: 04/22/2024 Start: 08-12-2023 VIRFUVBRITNEYE, Provider : Adriana Mccallum, Status: Pen, Time: 1:30 PM VIRFUVHOME, Provider: Adriana Mccallum, Status: Pen, Time: 1:30 PM DM-Ozzdkyyvsn-Rsdmcx 3rd [facility] 3151 Work Phone: Start: 07-22-2023 VIRFUVHOME, Provider : Adriana Mccallum, Status: Pen, Time: 1:30 PM VIRFUVHOME, Provider: Adriana Mccallum, Status: Pen, Time: 1:30 PM HP-Pemkrnvlvy-Idfuav [address] [place] Work Phone: Start: 07-16-2023 Covid-19 Vaccine ( season) Covid-19 Vaccine ( season) [facility] Start: 07-16-2023 Influenza vaccination Influenza Vacc ine (#1) [facility] Start: 07-09-2023 VIRFUVZULLY, Provider : Adriana Mccallum, Status: Pen, Time: 11:30 AM VIRFUVHOME, Provider: Adriana Mccallum, Status: Pen, Time: 11:30 AM RC-Uigncqvvgq-Qgdsdp [address] [place] Work Phone: Start: 06-11-2023 VIRFUVZULLY, Provider : Adriana Mccallum, Status: Pen, Time: 11:30 AM VIRFUVHOME, Provider: Adriana Mccallum, Status: Pen, Time: 11:30 AM ZI-Gqgcjyyjeo-Dqjxrd [address] [place] Work Phone: Start: 05-06-2023 VIRFUVZULLY, Provider : Adriana Mccallum, Status: Pen, Time: 9:00 AM VIRFUVHOME, Provider: Adriana Mccallum, Status: Pen, Time: 9:00 AM JY-Vdhfwixrab-Xrmexq [address] [place] Work Phone: Start: 04-09-2023 VIRFUVZULLY, Provider : Adriana Mccallum, Status: Pen, Time: 12:00 PM VIRFUVHOME, Provider: Adriana Mccallum, Status: Pen, Time: 12:00 PM HQ-Bbxqamqcam-Lmioei [address] [place] [address] Work Phone: Start: 03-05-2023 VIRFUVHOME, Provider : Adriana Mccallum, Status: Pen, Time: 12:00 PM VIRFUVHOME, Provider: Adriana Mccallum, Status: Pen, Time: 12:00 PM YY-Brwxmqwcrd-Rpxsyn [address] [place] [address] Work Phone: Start: 12-23-2022 VIRFUVHOME, Provider : Adriana Mccallum, Status: Pen, Time: 12:00 PM VIRFUVHOME, Provider: Adriana Mccallum, Status: Pen, Time: 12:00 PM AW-Bjqgxmbtbg-Dsqnf [address] [address] Work Phone: Start: 12-01-2022 VIRFUVHOME, Provider : Adriana Mccallum, Status: Pen, Time: 11:30 AM VIRFUVHOME, Provider: Adriana Mccallum, Status: Pen, Time: 11:30 AM GK-Pluwohtywj-Piqieu [address] [place] [address] Work Phone: Start: 10-15-2022 VIRFUVHOME, Provider : Adriana Mccallum, Status: Pen, Time: 1:00 PM VIRFUVHOME, Provider: Adriana Mccallum, Status: Pen, Time: 1:00 PM CM-Mskwmjkasd-Danpae [address] [place] [address] Work Phone: Start: 09-03-2022 VIRFUVHOME, Provider : Adriana Mccallum, Status: Pen, Time: 1:00 PM VIRFUVHOME, Provider: Adriana Mccallum, Status: Pen, Time: 1:00 PM AS-Zewhhqbsko-Ddbmbf [address] [place] [address] Work Phone: Start: 08-06-2022 VIRFUVHOME, Provider : Adriana Mccallum, Status: Pen, Time: 1:00 PM VIRFUVHOME, Provider: Adriana Mccallum, Status: Pen, Time: 1:00 PM VS-Qkcrpmfohi-Caokhs [address] [place] [address] Work Phone: Start: 07-16-2022 Influenza vaccination INFLUENZA (#1) [facility] Start: 07-09-2022 VIRFUVHOME, Provider : Adriana Mccallum, Status: Pen, Time: 11:30 AM VIRFUVHOME, Provider: Adriana Mccallum, Status: Pen, Time: 11:30 AM QM-Kpkdhlbhsi-Nzfzir [address] [place] [address] Work Phone: Start: 06-03-2022 VIRFUVHOME, Provider : Adriana Mccallum, Status: Pen, Time: 2:00 PM VIRFUVHOME, Provider: Adriana Mccallum, Status: Pen, Time: 2:00 PM DU-Gltsfaxgzt-Fihcjh [address] [place] [address] Work Phone: Start: 04-29-2022 VIRFUVHOME, Provider : Adriana Mccallum, Status: Pen, Time: 1:30 PM VIRFUVHOME, Provider: Adriana Mccallum, Status: Pen, Time: 1:30 PM NQ-Nfqkksldbx-Ioincb [address] [place] [address] Work Phone: Start: 04-01-2022 VIRFUVHOME, Provider : Adriana Mccallum, Status: Pen, Time: 1:30 PM VIRFUVHOME, Provider: Adriana Mccallum, Status: Pen, Time: 1:30 PM PJ-Hshzwavdpi-Qxidkg [address] [place] [address] Work Phone: Start: 02-25-2022 VIRFUVHOME, Provider : Adriana Mccallum, Status: Pen, Time: 3:30 PM VIRFUVHOME, Provider: Adriana Mccallum, Status: Pen, Time: 3:30 PM JG-Eklsuxqkgg-Uvlzoz [address] [place] [address] Work Phone: Start: 02-06-2022 NPVPRE, Provider: Facundo Gomes, Status: Pen, Time: 1:30 PM NPVPRE, Provider: Facundo Gomes, Status: Pen, Time: 1:30 PM JN-Dvsfhccsut-Mtbhga [address] [place] [address] Work Phone: Start: 01-28-2022 VIRFUVHOME, Provider : Adriana Mccallum, Status: Pen, Time: 2:30 PM VIRFUVZULLY, Provider: Adriana Mccallum, Status: Pen, Time: 2:30 PM LQ-Uunvmmqyry-Wxuazl [address] [place] Work Phone: Start: 12-31-2021 VIRFUVHOME, Provider : Adriana Mccallum, Status: Pen, Time: 1:30 PM VIRFUVHOME, Provider: Adriana Mccallum, Status: Pen, Time: 1:30 PM RA-Tavhddefrz-Ctrcqn [address] [place] Work Phone: Start: 12-11-2021 COVID-19 VACCINE (4 - Booster for Pfizer series) COVID-19 VACCINE (4 - Booster for Pfizer series) [facility] Start: 12-01-2021 FUV, Provider: Adriana Mccallum, Status: Pen, Time: 11:00 AM FUV, Provider: Adriana Mccallum, Status: Pen, Time: 11:00 AM WZ-Dfcxwjkgmt-Pmmjtt [address] [place] Work Phone: Start: 10-30-2021 VIRFUVHOME, Provider : Adriana Mccallum, Status: Pen, Time: 2:30 PM VIRFUVHOME, Provider: Adriana Mccallum, Status: Pen, Time: 2:30 PM KE-Asvnjwybde-Sgenwd [address] [place] Work Phone: Start: 10-03-2021 VIRFUVHOME, Provider : Klever Garza, Status: Pen, Time: 10:00 AM VIRFUVHOME, Provider: Klever Garza, Status: Pen, Time: 10:00 AM SL-Qhtpizarxp-Yhpeuq [facility] Work Phone: Start: 09-26-2021 VIRFUVHOME, Provider : Klever Garza, Status: Pen, Time: 10:00 AM VIRFUVHOME, Provider: Klever Garza, Status: Pen, Time: 10:00 AM QG-Agfrofwjar-Gejdqu [facility] Work Phone: Start: 09-19-2021 VIRFUVHOME, Provider : Klever Garza, Status: Pen, Time: 10:00 AM VIRFUVHOME, Provider: Klever Garza, Status: Pen, Time: 10:00 AM YY-Ljbzpegtsq-Cvcctu [address] [place] [address] 3151 Work Phone: Start: 09-10-2021 VIRFUVHOME, Provider : Klever Garza, Status: Pen, Time: 10:00 AM VIRFUVHOME, Provider: Klever Garza, Status: Pen, Time: 10:00 AM QB-Wpauaatlce-Eydpqv [address] [place] [address] 3151 Work Phone: Start: 09-05-2021 VIRFUVHOME, Provider : Klever Garza, Status: Pen, Time: 10:00 AM VIRFUVHOME, Provider: Klever Garza, Status: Pen, Time: 10:00 AM SM-Cacwrqpiuk-Kzqerk [address] [place] [address] 3151 Work Phone: Start: 08-28-2021 VIRFUVHOME, Provider : Klever Garza, Status: Pen, Time: 10:00 AM VIRFUVHOME, Provider: Klever Garza, Status: Pen, Time: 10:00 AM NI-Zlzhgsndrl-Hywlvn [address] [place] [address] 3151 Work Phone: Start: 08-22-2021 VIRFUVHOME, Provider : Klever Garza, Status: Pen, Time: 9:00 AM VIRFUVHOME, Provider: Klever Garza, Status: Pen, Time: 9:00 AM MU-Jstgfdcmmb-Eizipe [address] [place] [address] Work Phone: Start: 08-15-2021 VIRFUVHOME, Provider : Adriana Mccallum, Status: Pen, Time: 9:30 AM VIRFUVHOME, Provider: Adriana Mccallum, Status: Pen, Time: 9:30 AM ZS-Qjmfdpnqvg-Qtbgha [address] [place] [address] Work Phone: Start: 07-16-2021 Influenza vaccination Flu vaccine (# 1) [facility] Work Phone: Start: 07-11-2021 VIRFUVHOME, Provider : Adriana Mccallum, Status: Pen, Time: 9:30 AM VIRFUVHOME, Provider: Adriana Mccallum, Status: Pen, Time: 9:30 AM AG-Khcvufnnwy-Ovtojh [address] [place] [address] Work Phone: Start: 06-13-2021 VIRFUVHOME, Provider : Adriana Mccallum, Status: Pen, Time: 9:30 AM VIRFUVHOME, Provider: Adriana Mccallum, Status: Pen, Time: 9:30 AM IU-Qjctmyxjwv-Rgvncl [address] [place] [address] Work Phone: Start: 05-14-2021 VIRFUVHOME, Provider : Adriana Mccallum, Status: Pen, Time: 9:00 AM VIRFUVHOME, Provider: Adriana Mccallum, Status: Pen, Time: 9:00 AM NB-Rzzkdkzjeh-Mnzqpz [address] [place] [address] Work Phone: Start: 04-22-2021 VIRFUVHOME, Provider : Adriana Mccallum, Status: Pen, Time: 10:00 AM VIRFUVHOME, Provider: Adriana Mccallum, Status: Pen, Time: 10:00 AM KF-Zguyblsnat-Tncejy [address] [place] [address] Work Phone: Start: 07-16-2020 Influenza vaccination M [place], [place] Start: 07-16-2019 Influenza vaccination Flu vaccine (# 1) [place], [place] Start: 05-07-2019 Annual Wellness Visi t (AWV) Annual Wellness Visit (AWV) [place], [place] Start: 2018 HPV TESTING HPV TESTING [facility] Start: 2018 Screening for malign ant neoplasm of cervix HPV Testing [facility] Start: 2015 HPV Vaccine (optiona l start 27-45 years) HPV Vaccine (optional start 27-45 years) [facility] Start: 2009 Cervical cancer screen Cervical canc er screen [place], [place] Start: 2009 PAP TESTING PAP TESTING [facility] Start: 2009 Screening for malign ant neoplasm of cervix [facility] Start: 2007 DTaP/Tdap/Td vaccine (1 - Tdap) DTaP/Tdap/Td vaccine (1 - Tdap) [place] Start: 2007 Hepatitis A (HAV) Vaccine (optional start 19+ years) Hepatitis A (HAV) Vaccine (optional start 19+ years) [facility] Start: 2007 Hepatitis B vaccination [facility] Start: 2007 Hepatitis B Vaccine (1 of 3 - 19+ 3-dose series) Hepatitis B Vaccine (1 of 3 - 19+ 3-dose series) [facility] Start: 2007 Tetanus vaccination Imm-DTaP/T dap/Td (1 - Tdap) [facility] Start: 2007 Urine microalbumin profile [facility] Start: 2006 HEPATITIS C SCREENING HEPATITIS C [facility] Start: 2006 Hepatitis C screening Hepatitis C [facility] Start: 2006 [facility] Start: 2006 HIV screening [facility] Start: 2006 Hypertension screening Hyperte nsion Screening (#1) [facility] Start: 2006 Medicare Annual Well ness Visit Medicare Annual Wellness Visit [facility] Start: 2006 Tdap Booster Tdap Booster [facility] Start: 2003 HIV screen HIV screen [place], [place] Start: 2003 HIV screening HIV screen [facility], [place] Start: 2003 Relationship Safety Screening/Counseling Relationship Safety Screening/Counseling [facility] Start: 2001 Varicella Vaccine (1 of 2 - 13+ 2-dose series) Varicella Vaccine (1 of 2 - 13+ 2-dose series) [place], [place] Start: 2000 COVID-19 Vaccine (1) COVID-19 Vaccin e (1) [facility] Work Phone: Start: 1999 DTaP/Tdap/Td vaccine (1 - Tdap) DTaP/Tdap/Td vaccine (1 - Tdap) [place] Start: 1989 Varicella Vaccine (1 of 2 - 2-dose childhood series) Varicella Vaccine (1 of 2 - 2-dose childhood series) [place] Start: 1988 HEPATITIS B (1 of 3 - 3-dose series) HEPATITIS B (1 of 3 - 3-dose series) [facility] Start: 1988 Hepatitis B Vaccine (1 of 3 - 3-dose series) Hepatitis B Vaccine (1 of 3 - 3-dose series) [facility] Start: 1988 Hepatitis C screening Hepatitis C sc codie [facility] Work Phone: Start: 1988 Screening for malign ant neoplasm of breast Mammography (shared decision-making, age 35-39) [facility] Start: 1988 Screening for malign ant neoplasm of cervix [facility] Start: 1988 Tobacco Screening Tobacco Screening [facility] End: 11-27-2025 ECG COMPLETE ECG COMPLETE ECG Routine Paroxysmal A-fib (HCC) 1 Occurrences starting 11/27/2024 until 11/27/2025 [facility] Work Phone: Comment on above: 1 Occurrences starti ng 11/27/2024 until 11/27/2025 End: 01-27-2025 NM Stomach Views for gastric emptying solid phase W radionuclide PO NM GASTRIC EMPTYING SOLID Radiology Routine Dyspepsia 1 Occurrences starting 12/29/2023 until 01/27/2025 [facility] Work Phone: Comment on above: 1 Occurrences starti ng 12/29/2023 until 01/27/2025 End: 07-21-2025 NM Stomach Views for gastric emptying solid phase W radionuclide PO NM GASTRIC EMPTYING SOLID Radiology Routine Nausea Vomiting without nausea, unspecified vomiting type 1 Occurrences starting 06/21/2024 until 07/21/2025 [facility] Work Phone: Comment on above: 1 Occurrences starti ng 06/21/2024 until 07/21/2025 End: 07-21-2025 US Abdomen RUQ US ABD RIGHT UPPER QUADRANT Radiology Routine Nausea Vomiting without nausea, unspecified vomiting type 1 Occurrences starting 06/21/2024 until 07/21/2025 [facility] Comment on above: 1 Occurrences starti ng 06/21/2024 until 07/21/2025 WO-Lommvjfufk-A nicolaser [facility] Work Phone: [facility] NEGATED: Highlighted row has been ruled out! Planned Goals not documented IL-Xigorblmhh-Ydihmr [facility] Work Phone: Immunizations Immunization Date Immunization Notes Care Provider Fa michael 08-30-2023 influenza virus vacc ine, unspecified formulation Desiree William PA-C Work Phone: [facility] 08-07-2022 influenza virus vacc ine, unspecified formulation Leia Contreras MD Work Phone: [facility] 10-16-2021 Moderna COVID-19 Vac cine 100 MCG/0.5ML Intramuscular Suspension Timmy M Esterle Work Phone: NH-Vaaaspsbte-Kyidz r [address] [place] Work Phone: 07-13-2021 influenza, injectabl e, quadrivalent, preservative free Timmy M Esterle Work Phone: QQ-Gdrtrvncwb-Jdtrh [address] Work Phone: 03-19-2021 Pfizer-BioNTech COVI D-19 Vacc 30 MCG/0.3ML Intramuscular Suspension Timmy Esterle Work Phone: AZ-Ouogtuiuxd-Vdtsw r [address] [place] Work Phone: 02-19-2021 Pfizer-BioNTech COVI D-19 Vacc 30 MCG/0.3ML Intramuscular Suspension Timmy Esterle Work Phone: JO-Vnoarkvhro-Ocvic [address] Work Phone: 07-16-2020 influenza, injectabl e, quadrivalent, preservative free Timmy M Esterle Work Phone: [facility] 07-30-2019 influenza, injectabl e, quadrivalent, preservative free Timmy M Esterle Work Phone: [facility] 12-21-2018 influenza, injectabl e, quadrivalent, preservative free Timmy M Esterle Work Phone: [facility] 09-28-2018 influenza, injectabl e, quadrivalent, preservative free Timmy M Esterle Work Phone: [facility] 03-02-2016 tetanus toxoid, redu ignacia diphtheria toxoid, and acellular pertussis vaccine, adsorbed DR CHAUNCEY ROMERO MD [facility] Payers Date Payer Category Payer Medicare FFS MEDICARE [id number] 2024 Self-pay 2017 Medicaid MEDICAID [facility] MEDICAID [id number] 2017-Present [phone] [address] [place] [address] Medicaid [id number] 2017 Medicare MEDICARE MEDICAR E PART A AND B xxxxxxxxxx 2017-Present [phone] [place] [address] xxxxxxxxxx [id number] 2017 Medicare MEDICARE MEDICAR E PART A AND B xxxxxxxxxxx 2017-Present [phone] [place] [address] xxxxxxxxxxx [id number] 2017 Medicaid [id number] 2017 Medicaid MEDICAID [facility] DEPT OF JOB xxxxxxxxxxxx 2017-Present [phone] [address] [place] [address] xxxxxxxxxxxx [id number] 2017 Medicare [id number] 2017 Medicare [id number] 2017 Medicare [id number] 1988 Unknown [id number] [id number]7 1988 Unknown [id number] 2.16.840.1.060560.3.579.2.627 1988 Unknown [id number] 2.16.840.1.465630.3.579.2.627 1988 Unknown [id number] 2.16.840.1.168284.3.579.2.124 3 1988 Unknown [id number] 2.16.840.1.515489.3.579.2.124 5 1988 Unknown [id number] 2.16.840.1.563704.3.579.2.124 5 1988 Unknown [id number] 2.16.840.1.969026.3.579.2.124 2 1988 Unknown [id number] 2.16.840.1.550474.3.579.2.124 2 1988 Unknown [id number] 2.16.840.1.238508.3.579.2.124 2 1988 Unknown [id number] 2.16.840.1.469251.3.579.2.124 2 1988 Unknown [id number] 2.16.840.1.864931.3.579.2.124 9 1988 Unknown [id number] 2.16.840.1.597720.3.579.2.124 4 1988 Unknown [id number] 2.16.840.1.519669.3.579.2.124 4 1988 Unknown [id number] 2.16.840.1.480120.3.579.2.124 4 1988 Unknown [id number] 2.16.840.1.502888.3.579.2.124 4 1988 Unknown [id number] 2.16.840.1.042430.3.579.2.124 4 1988 Unknown [id number] 2.16.840.1.690348.3.579.2.124 4 1988 Unknown [id number] 4 1990 Unknown [id number] 2.16.840.1.016035.3.579.2.124 4 1988 Unknown [id number] 2.16.840.1.928492.3.579.2.124 4 1988 Unknown [id number] 2.16.840.1.329005.3.579.2.124 4 1988 Unknown [id number] 2.16.840.1.765599.3.579.2.124 4 1988 Unknown [id number] 2.16.840.1.623280.3.579.2.124 4 1988 Unknown [id number] 2.16.840.1.989513.3.579.2.124 4 1988 Unknown [id number] 2.16.840.1.468709.3.579.2.124 4 1988 Unknown [id number] 2.16.840.1.988779.3.579.2.124 4 1988 Unknown [id number] 2.16.840.1.937586.3.579.2.732 Unknown [id number] Unknown Unknown [id number] 2.16.840.1.417680.3.579.2.462 Unknown [id number] 2.16.840.1.780806.3.579.2.462 Unknown [id number] 2.16.840.1.998944.3.579.2.462 Unknown [id number] 2.16.840.1.670102.3.579.2.462 Unknown [id number] 2.16.840.1.118890.3.579.2.462 Unknown [id number] 2.16.840.1.285794.3.579.2.462 Unknown [id number] 2.16.840.1.278037.3.579.2.462 Unknown [id number] 2.16.840.1.282832.3.579.2.462 Unknown [id number] 2.16.840.1.820532.3.579.2.462 Unknown [id number] 2.16.840.1.488063.3.579.2.462 Unknown [id number] 2.16.840.1.477741.3.579.2.462 Social History Date Type Detail Facility Start: 07-22-2017 End: 04-28-2018 Tobacco smoking status NHIS Never smoker [facility] Work Phone: Start: 04-28-2018 End: 12-08-2024 Alcohol intake No [facility] Start: 1990 Sex Assigned At Not on file M [place], [place] Start: 09-13-2019 End: 03-15-2025 Alcohol intake Current non-drinker of alcohol (finding) [place], [place] Start: 07-22-2017 End: 09-13-2019 Tobacco use and exposure Never used [place], [place] Start: 01-19-2022 End: 12-08-2024 No alcohol use No alcohol use [facility] Start: 1990 Sex Assigned At Female C [facility] Start: 12-15-2022 History SDOH Financial 3 [facility] Start: 12-15-2022 History SDOH Food Worry 1 [facility] Start: 12-15-2022 History SDOH Transport Med 2 [facility] How hard is it for you to pay for the very basics like food, housing, medical care, and heating Not very hard [facility] Adult Depression Screening Assessment 6 [facility] (I/We) worried whether (my/our) food would run out before (I/we) got money to buy more. Never true [facility] Start: 01-15-2022 Gender identity Bmgwka-[id number] transsexual (finding) [facility] Start: 09-10-2020 Sexual orientation Bisexual (finding ) [facility] Sex Assigned At Sex [facility] Tobacco smoking status ARIS Tobacco smoking consumption unknown [facility] Work Phone: Has the [employer], gas, oil, or water Event [employer] threatened to shut off services in your home in past 12Mo No [facility] Are you now , , , , never or living with a partner? [facility] Do you feel stress - tense, restless, nervous, or anxious, or unable to sleep at night because your mind is troubled all the time - these days [OSQ] Very much [facility] Start: 12-07-2024 [facility] Start: 12-07-2024 Gender identity Identifies as male gender (finding) [facility] NEGATED: Highlighted row - - [facility] [address]th Floor Work Phone: Goals Date Patient Goal Desired Activity /State Personal health goal Functional Status Date Assessment Result Facility 07-23-2024 Functional Status Identified as high risk, Lithographic Proofer at bedside [facility] 04-29-2024 Functional Status Ambulation in [place], Ambulation in Room [facility] 04-16-2024 Functional Status Standard Safet y ID band on, Call device within reach, Bed in low position, Wheels locked, Upper/Half-Length side-rails up, Phone within reach, personal items within reach, Safety level maintained [facility] 07-16-2023 Are you deaf, or do you have serious difficulty hearing No 07/16/2023 2:11 PM EDT Edgar Pickard, MARITZA No [facility] 07-16-2023 Are you blind, or do you have serious difficulty seeing, even when wearing glasses No 07/16/2023 2:11 PM EDT Edgar Pickard RN No [facility] 07-16-2023 Do you have serious difficulty walking or climbing stairs No 07/16/2023 2:11 PM EDT Edgar Pickard RN No [facility] 07-16-2023 Do you have difficul ty dressing or bathing No 07/16/2023 2:11 PM EDT Edgar Pickard RN No [facility] 07-16-2023 Because of a physica l, mental, or emotional condition, do you have difficulty doing errands alone such as visiting a physician's office or shopping No 07/16/2023 2:11 PM EDT Edgar Pickard RN No [facility] NEGATED: Highlighted row Functional performance Functional status health issues are not documented Disease [facility] [address] Floor Work Phone: Mental Status Date Assessment Result Facility 07-23-2024 Mental Status Orientation Orie nted x 4 [facility] 07-22-2024 Mental Status [facility] 04-29-2024 Mental Status Oriented x 4 [facility] 04-16-2024 Mental Status Oriented x 4 [facility] 07-16-2023 Because of a physical, mental, or emotional condition, do you have serious difficulty concentrating, remembering, or making decisions No 07/16/2023 2:11 PM EDT Edgar Pickard RN No [facility] NEGATED: Highlighted row Cognitive function [Interpretation] Cognitive status health issues are not documented Disease [facility] 7th Floor Work Phone: Clinical Notes 03-23-2021 to 03-15-2025 Behavorial Health Intake - June Zhu LSW - 03/15/2025 10:45 PM EDTBehavorial Health Intake - June Zhu LSW - 03/15/2025 10:45 PM Dorian Carlos MD - 01/29/2025 5:00 PM EDT Note Date & Type Note Facility 03-15-2025 Note Formatting of this n ote is different from the original. BEHAVIORAL HEALTH INTAKE NOTE SERVICE DATE: 03/15/2025 SERVICE TIME: 9:30PM Nature of the crisis: Auditory/visual hallucinations Presenting Problem: Arcadio Quiroz is a 35 year old trans [facility] family for evaluation of auditory/visual hallucinations. PPHx of schizoaffective disorder, pt reports that he is currently between psychiatric providers. Last known inpatient psychiatric hospitalization to [facility] in December 2024 for acute psychosis. Pt scored moderate risk on C-SSRS and is not on a 1:1 sitter in ED. electronic scale subassembler met with pt at bedside to complete assessment. Pt presents alert and oriented x4 with anxious mood and blunted affect. Pt reports presenting today due to worsening psychotic symptoms. Pt reports having auditory hallucinations of opera music as well as voices saying unkind things, pt denies auditory hallucinations being command in nature. Pt reports visual hallucinations of his surroundings appearing distorted which has been more recent onset in the past few days and reports distortions continuing to worsen. Pt denies any current and active suicidal ideation, plan or intent. Pt reports history of suicide attempt last year via overdose. Pt denies homicidal ideation, access to weapons. Pt reports that he is currently between providers, but has been taking his medications that have been prescribed by [facility] outpatient program he had been following - pt is currently prescribed saphris, lithium, lamictal and PRN atarax. Pt denies any substance use. BAL and UDS negative. SOCIAL HISTORY: Social History Tobacco Use Smoking status: Never Smokeless tobacco: Never Vaping Use Vaping status: Never Used Substance Use Topics Alcohol use: No Drug use: Not Currently Types: Marijuana Comment: 1 gummy THC; only used once MEDICATIONS: benztropine (COGENTIN) 0.5 mg tablet Take 0.5 mg by mouth once daily. prazosin (MINIPRESS) 1 mg cap Take 1 mg by mouth daily at bedtime. hydrOXYzine HCl (ATARAX) 25 mg tablet Take 25 mg by mouth two times a day as needed for anxiety. MULTIVITAMIN ORAL Take by mouth. metoprolol succinate ER (TOPROL XL) 50 mg 24 hr tablet Take 1 tablet by mouth every afternoon. Appointment needed pantoprazole DR (PROTONIX) 40 mg tablet TAKE 1 TABLET BY MOUTH EVERY DAY QUEtiapine (SEROQUEL) 50 mg tablet Take 200 mg by mouth at bedtime as needed. famotidine (PEPCID) 20 mg tablet take 1 tablet by mouth twice a day lamoTRIgine (LAMICTAL) 100 mg tablet Take 1 tablet by mouth twice daily. (Patient taking differently: Take 150 mg by mouth two times a day.) lithium carbonate ER 300 mg CR tablet Take 2 tablets by mouth twice daily. aspirin, enteric coated (ASPIRIN, ENTERIC COATED) 81 mg EC tablet Take 81 mg by mouth once daily. No medication comments found. MEDICATION COMPLIANCE: Yes SOCIAL INFORMATION: How [facility] Issues Were Verified[facility], Other: See Comment, [employer] Website ([facility] search) Gender Specific Test: Negative Sex at Time of : Female Patient Identified Gender: Male Preferred Pronoun: He/Him/His OBSERVATIONS Level of Consciousness Alert: Yes Orientation: Person, Place, Situation, Time Physical Appearance Appears: Appears Stated Age Speech Rate: Appropriate Volume: Appropriate Quality: Appropriate to Topic Quantity: Appropriate Thought Processes Thought: Linear and Organized Thought Content/Perceptions Delusions: None Observed Hallucinations: Auditory, Visual Mood & Affect Observed/Reported: Anxious Range of Affect: Blunted Sleep: Difficulty Sleeping Appetite: Normal Appetite Non-Suicidal Self Injury Non-Suicidal Self Injury: Patient Denies Suicidal Ideation Suicidal Ideation: Patient Denies Homicidal Ideation Homicidal Ideation: Patient Denies Non-Lethal Harm to Others or Damage/Destruction to Property Harm to Others or Damage/Destruction of Property: Patient Denies Access To Weapons Access To Weapons: No Medical Conditions Medical Conditions Increasing Risks: None CHEMICAL DEPENDENCY Substance Use: No Referral for Substance Abuse Services: No Toxicology Screen Results: Negative [facility]: Inpatient Mental Health Treatment History: Over 90 Days Ago Details of Past Hospitalization: Psychosis Last Hospitalization: [facility] in December 2024 INTERVENTIONS Psychiatry Consult Completed in This Episode of Care: No Sources of Information: Patient, Epic, Prior Referrals, ED Staff Patient Assessed by Intake via: Face to Face Coordination of care with: ED RN, ED LIP Interventions: Therapeutic Interventions Therapeutic Interventions: Crisis Assessment Goals/Objectives: Admission to inpatient psychiatric unit for further evaluation and treatment of symptoms of illness DISPOSITION & PLAN: Patient stated goals: Goals: To have reduction in symptoms, To improve my functional status, To be stabilized on my medications Coordination of Care with: ED RN, ED LIP Assessment/Impressions: Inpatient Need Plan: Consult with Psychiatry on-call, ED Psych consult, or other provider Goals/Objectives: Admission to inpatient psychiatric unit for further evaluation and treatment of symptoms of illness Total time spent (minutes) in Supportive Care for this patient: 30 MEDICAL CLEARANCE Initial Date: 03/15/25 Initial Time: 6 Reviewed medical history with physician: Yes Reviewed abnormal labs with physician: Yes Discussed case with Dr. Gillespie who states that Lily Quiroz is a candidate for admission. Bed#: Unit 1500 Report Given To: workers compensation claims supervisor Report Date: 03/16/25 Report Time: 222 Is Patient Less Than 18 Years of Age or have a Guardian/Healthcare Power of Low Altitude Air Defense Gunner?: No Disposition Date: 03/16/25 Disposition Time: 229 SIGNATURE: CURTIS Mendez PATIENT NAME: Lily Quiorz DATE: March 15, 2025 TIME: 9:30 PM [facility] 03-15-2025 Miscellaneous Notes BEHAVIORAL HEALTH INTAKE NOTE SERVICE DATE: 03/15/2025 SERVICE TIME: 9:30PM Nature of the crisis: Auditory/visual hallucinations Presenting Problem: Arcadio Quiroz is a 35 year old trans malebrought in [facility] Home by family for evaluation of auditory/visual hallucinations. PPHx of schizoaffective disorder, pt reports that he is currently between psychiatric providers. Last known inpatient psychiatric hospitalization to [facility] in December 2024 for acute psychosis. Pt scored moderate risk on C-SSRS and is not on a 1:1 sitter in ED. electronic scale subassembler met with pt at bedside to complete assessment. Pt presents alert and oriented x4 with anxious mood and blunted affect. Pt reports presenting today due to worsening psychotic symptoms. Pt reports having auditory hallucinations of opera music as well as voices saying unkind things, pt denies auditory hallucinations being command in nature. Pt reports visual hallucinations of his surroundings appearing distorted which has been more recent onset in the past few days and reports distortions continuing to worsen. Pt denies any current and active suicidal ideation, plan or intent. Pt reports history of suicide attempt last year via overdose. Pt denies homicidal ideation, access to weapons. Pt reports that he is currently between providers, but has been taking his medications that have been prescribed by [facility] outpatient program he had been following - pt is currently prescribed saphris, lithium, lamictal and PRN atarax. Pt denies any substance use. BAL and UDS negative. SOCIAL HISTORY: Social History Tobacco Use Smoking status: Never Smokeless tobacco: Never Vaping Use Vaping status: Never Used Substance Use Topics Alcohol use: No Drug use: Not Currently Types: Marijuana Comment: 1 gummy THC; only used once MEDICATIONS: benztropine (COGENTIN) 0.5 mg tablet Take 0.5 mg by mouth once daily. prazosin (MINIPRESS) 1 mg cap Take 1 mg by mouth daily at bedtime. hydrOXYzine HCl (ATARAX) 25 mg tablet Take 25 mg by mouth two times a day as needed for anxiety. MULTIVITAMIN ORAL Take by mouth. metoprolol succinate ER (TOPROL XL) 50 mg 24 hr tablet Take 1 tablet by mouth every afternoon. Appointment needed pantoprazole DR (PROTONIX) 40 mg tablet TAKE 1 TABLET BY MOUTH EVERY DAY QUEtiapine (SEROQUEL) 50 mg tablet Take 200 mg by mouth at bedtime as needed. famotidine (PEPCID) 20 mg tablet take 1 tablet by mouth twice a day lamoTRIgine (LAMICTAL) 100 mg tablet Take 1 tablet by mouth twice daily. (Patient taking differently: Take 150 mg by mouth two times a day.) lithium carbonate ER 300 mg CR tablet Take 2 tablets by mouth twice daily. aspirin, enteric coated (ASPIRIN, ENTERIC COATED) 81 mg EC tablet Take 81 mg by mouth once daily. No medication comments found. MEDICATION COMPLIANCE: Yes SOCIAL INFORMATION: How Legal Issues Were Verified: [facility] Sexual Offender Website, Other: See Comment, [employer] Website ([facility] docket search) Gender Specific Test: Negative Sex at Time of : Female Patient Identified Gender: Male Preferred Pronoun: He/Him/His OBSERVATIONS Level of Consciousness Alert: Yes Orientation: Person, Place, Situation, Time Physical Appearance Appears: Appears Stated Age Speech Rate: Appropriate Volume: Appropriate Quality: Appropriate to Topic Quantity: Appropriate Thought Processes Thought: Linear and Organized Thought Content/Perceptions Delusions: None Observed Hallucinations: Auditory, Visual Mood & Affect Observed/Reported: Anxious Range of Affect: Blunted Sleep: Difficulty Sleeping Appetite: Normal Appetite Non-Suicidal Self Injury Non-Suicidal Self Injury: Patient Denies Suicidal Ideation Suicidal Ideation: Patient Denies Homicidal Ideation Homicidal Ideation: Patient Denies Non-Lethal Harm to Others or Damage/Destruction to Property Harm to Others or Damage/Destruction of Property: Patient Denies Access To Weapons Access To Weapons: No Medical Conditions Medical Conditions Increasing Risks: None CHEMICAL DEPENDENCY Substance Use: No Referral for Substance Abuse Services: No Toxicology Screen Results: Negative [facility]: Inpatient Mental Health Treatment History: Over 90 Days Ago Details of Past Hospitalization: Psychosis Last Hospitalization: [facility] in December 2024 INTERVENTIONS Psychiatry Consult Completed in This Episode of Care: No Sources of Information: Patient, Epic, Prior Referrals, ED Staff Patient Assessed by Intake via: Face to Face Coordination of care with: ED RN, ED CAMI Interventions: Therapeutic Interventions Therapeutic Interventions: Crisis Assessment Goals/Objectives: Admission to inpatient psychiatric unit for further evaluation and treatment of symptoms of illness DISPOSITION & PLAN: Patient stated goals: Goals: To have reduction in symptoms, To improve my functional status, To be stabilized on my medications Coordination of Care with: ED RN, ED CAMI Assessment/Impressions: Inpatient Need Plan: Consult with Psychiatry on-call, ED Psych consult, or other provider Goals/Objectives: Admission to inpatient psychiatric unit for further evaluation and treatment of symptoms of illness Total time spent (minutes) in Supportive Care for this patient: 30 MEDICAL CLEARANCE Initial Date: 03/15/25 Initial Time: 2315 Reviewed medical history with physician: Yes Reviewed abnormal labs with physician: Yes Discussed case with Dr. Gillespie who states that Lily Quiroz is a candidate for admission. Bed#: Unit 1500 Report Given To: workers compensation claims supervisor Report Date: 03/16/25 Report Time: 222 Is Patient Less Than 18 Years of Age or have a Guardian/Healthcare Power of Low Altitude Air Defense Gunner?: No Disposition Date: 03/16/25 Disposition Time: 229 SIGNATURE: CURTIS Mendez PATIENT NAME: Lily Quiroz DATE: March 15, 2025 TIME: 9:30 PM documented in this encounter [facility] 01-29-2025 History of Present illness Narrative Images from the original note were not included. [facility] [place] Jan[facility] Department of Cardiovascular Medicine SECTION OF CARDIAC PACING and ELECTROPHYSIOLOGY OUTPATIENT VISIT DATE January 29, 2025 OUTPATIENT VISIT TYPE ESTABLISHED PRIMARY CARE PHYSICIAN: Danny Lea [address] [facility] [place] [address] REFERRING PHYSICIAN: Dorian Jeffers [id number] [facility] [id number] CHIEF COMPLAINT: AF/palpitations HISTORY OF PRESENT ILLNESS/NURSING INTAKE NOTE: Mr. Quiroz is a 34 year old adult who presents today for follow-up visit for management of atrial fibrillation. He was last seen in office 01/19/2022. He has a PMH of AF confirmed on Cardionet 2017, anxiety, bipolar disorder and MTHFR gene mutation (predisposition to stroke and thromboembolism), it was decided to keep them on aspirin alone. He has had a few episodes of atrial fibrillation confirmed by a smart watch which were occurring monthly to every month an a half. They can last up to an hour but usually last about five minutes. He was dizzy and anxious and admitted to 200mg caffeine per day. He wore a zio that showed sinus rhythm and a bit of SVT. He has been maintained on metoprolol and feels he is doing well on this. He denies chest pain, orthopnea, cough, edema, PND, lightheadedness or syncope. PAST MEDICAL HISTORY Diagnosis Date Anxiety Atrial fibrillation (HCC) 05/2017 diagnosed age 23 Bipolar 1 disorder (HCC) 2014 History of seizures until age 15 MTHFR mutation (methylenetetrahydrofolate reductase) Panic attacks Prolonged QT interval possible, per psych PTSD (post-traumatic stress disorder) complex Schizoaffective disorder (HCC) PAST SURGICAL HISTORY Procedure Laterality Date EXTENSIVE JAW SURGERY 2001 PAST SURGICAL HISTORY OF sinus surgery for deviated septum PAST SURGICAL HISTORY OF ECT treatments - 23 SOCIAL HISTORY Social History Tobacco Use Smoking status: Never Smokeless tobacco: Never Vaping Use Vaping status: Never Used Substance Use Topics Alcohol use: No Drug use: Not Currently Types: Marijuana Comment: 1 gummy THC; only used once FAMILY HISTORY Problem Relation Age of Onset Hypertension Mother other (pulmonary embolism) Mother PE x 9 other (MTHFR) Mother other (lupus) Mother other (essential tremor) Mother other (mirgraines) Mother Psoriasis Brother other (crohns) Brother other (rheumatoid arthritis) Brother other (atrial fibrillation) Maternal Grandfather newly diagnosed 2017 at age 90 Psoriasis Brother Psoriasis Brother Psoriasis Brother ALLERGIES: ALLERGIES Allergen Reactions Methylphenidate Mental Status Change Abilify [Aripiprazo* Rash Dilaudid [Hydromorp* Vomiting Haldol [Haloperidol] Rash Ketamine Vomiting Rexulti [Brexpipraz* Rash MEDICATIONS: benztropine (COGENTIN) 0.5 mg tablet Take 0.5 mg by mouth once daily. prazosin (MINIPRESS) 1 mg cap Take 1 mg by mouth daily at bedtime. hydrOXYzine HCl (ATARAX) 25 mg tablet Take 25 mg by mouth two times a day as needed for anxiety. MULTIVITAMIN ORAL Take by mouth. metoprolol succinate ER (TOPROL XL) 50 mg 24 hr tablet Take 1 tablet by mouth every afternoon. Appointment needed pantoprazole DR (PROTONIX) 40 mg tablet TAKE 1 TABLET BY MOUTH EVERY DAY QUEtiapine (SEROQUEL) 50 mg tablet Take 200 mg by mouth at bedtime as needed. famotidine (PEPCID) 20 mg tablet take 1 tablet by mouth twice a day lamoTRIgine (LAMICTAL) 100 mg tablet Take 1 tablet by mouth twice daily. lithium carbonate ER 300 mg CR tablet Take 2 tablets by mouth twice daily. aspirin, enteric coated (ASPIRIN, ENTERIC COATED) 81 mg EC tablet Take 81 mg by mouth once daily. Aaliyah Felix RN PHYSICAL EXAMINATION: BP 116/73 Pulse 72 Ht 172.7 cm (5' 8") Wt 66.7 kg (147 lb) LMP 11/30/2023 (Approximate) BMI 22.35 kg/m General: Well appearing, in no acute distress, speaking in complete sentences. Skin: No clubbing, no cyanosis. Neck: no jugular venous distention, Lungs: Clear to auscultation bilaterally, no wheezing or rhonchi. Heart: Regular rhythm, PMI not displaced, S1, S2 normal, no S3, no S4, no heaves, no rub and no murmur. Abdomen: Soft, nontender, bowel sounds normal, no palpable organomegaly, no bruits. Extremities: No peripheral edema . Grade 2/4 distal pulses bilaterally. Neuro: Oriented to person, place and time, alert, cooperative, gait coordinated. CARDIOVASCULAR MEDICINE TESTING: ECG - sinus rhythm, 65 bpm. Zio 02/01/2022-02/13/2022 Preliminary Findings: Patient had a min HR of 50 bpm, max HR of 141 bpm, and avg HR of 79 bpm. Predominant underlying rhythm was Sinus Rhythm. 1 run of Supraventricular Tachycardia occurred lasting 4 beats with a max rate of 139 bpm (avg 136 bpm). Supraventricular Tachycardia was detected within +/- 45 seconds of symptomatic patient event(s). Isolated SVEs were rare (<1.0%), and no SVE Couplets or SVE Triplets were present. Isolated VEs were rare (<1.0%), and no VE Couplets or VE Triplets were present. EP Staff Addendum: I agree with the above ZioPatch report with the following additions/changes: There were 2 patient-triggered events / diary entries. These corresponded to sinus rhythm (78-84 bpm) with SVEs and to a brief run of SVT. Last EKG Result Conclusion ECG COMPLETE Collected: 01/29/2025 3:44 PM (Preliminary result) Impression: NORMAL SINUS RHYTHM NORMAL ECG I have personally reviewed the Electrocardiogram, Labs and Holter. IMPRESSION: Mr. Quiroz is a 34 year old adult with a history of anxiety, bipolar disorder and MTHFR gene mutation (heterozygous). We discussed several aspects of his EP care: #AF - no definitive recurrences since 2017. He uses his Apple watch whenever he has palpitations but, so far, tracings have not revealed AF. Currently on ASA 81mg PO daily; however, ASA is no longer used in AF management per new guidelines. Unclear if any role for ASA in patients who are heterozygous for MTHFR. He will follow-up with his PCP about this - but from EP perspective, ASA is no longer indicated. He will continue to take metoprolol for symptomatic management of palpitations. #Concern for prolonged QTC - QTC reassuring on today's ECG. If any new drug with potential QT-prolonging effect is being initiated, the patient should be screened with 12-lead ECGs. PLAN AND RECOMMENDATIONS: -See above. -Follow-up with me in 1-2 years or sooner, if needed. Dorian Jeffers MD I personally interviewed, confirmed and edited the above information as obtained by others. CONTACT INFORMATION: Dorian Jeffers MD, PHD Medical Decision Making: Problems: Low: Stable chronic illness Data: Unique test result(s) reviewed: 3+ Risk: Moderate: Drug management and Moderate risk from testing/treatment Medical Decision Making Level: 4 - Moderate documented in this encounter [facility] 01-29-2025 Note HNO ID: [id number] Author: DORIAN JEFFERS MD Service: ? Author Type: Physician Type: Progress Notes Filed: 01/29/2025 16:50 Note Text: [facility] [place] [facility] Department of Cardiovascular Medicine SECTION OF CARDIAC PACING and ELECTROPHYSIOLOGY OUTPATIENT VISIT DATE January 29, 2025 OUTPATIENT VISIT TYPE ESTABLISHED PRIMARY CARE PHYSICIAN: Danny Lea [address] [place] [address] REFERRING PHYSICIAN: Dorian Jeffers [address] [facility] [address] CHIEF COMPLAINT: AF/palpitations HISTORY OF PRESENT ILLNESS/NURSING INTAKE NOTE: Mr. Quiroz is a 34 year old adult who presents today for follow-up visit for management of atrial fibrillation. He was last seen in office 01/19/2022. He has a PMH of AF confirmed on Cardionet 2017, anxiety, bipolar disorder and MTHFR gene mutation (predisposition to stroke and thromboembolism), it was decided to keep them on aspirin alone. He has had a few episodes of atrial fibrillation confirmed by a smart watch which were occurring monthly to every month an a half. They can last up to an hour but usually last about five minutes. He was dizzy and anxious and admitted to 200mg caffeine per day. He wore a zio that showed sinus rhythm and a bit of SVT. He has been maintained on metoprolol and feels he is doing well on this. He denies chest pain, orthopnea, cough, edema, PND, lightheadedness or syncope. PAST MEDICAL HISTORY Diagnosis Date Anxiety Atrial fibrillation (HCC) 05/2017 diagnosed age 23 Bipolar 1 disorder (HCC) 2014 History of seizures until age 15 MTHFR mutation (methylenetetrahydrofolate reductase) Panic attacks Prolonged QT interval possible, per psych PTSD (post-traumatic stress disorder) complex Schizoaffective disorder (HCC) PAST SURGICAL HISTORY Procedure Laterality Date EXTENSIVE JAW SURGERY 2001 PAST SURGICAL HISTORY OF sinus surgery for deviated septum PAST SURGICAL HISTORY OF ECT treatments - 23 SOCIAL HISTORY Social History Tobacco Use Smoking status: Never Smokeless tobacco: Never Vaping Use Vaping status: Never Used Substance Use Topics Alcohol use: No Drug use: Not Currently Types: Marijuana Comment: 1 gummy THC; only used once FAMILY HISTORY Problem Relation Age of Onset Hypertension Mother other (pulmonary embolism) Mother PE x 9 other (MTHFR) Mother other (lupus) Mother other (essential tremor) Mother other (mirgraines) Mother Psoriasis Brother other (crohns) Brother other (rheumatoid arthritis) Brother other (atrial fibrillation) Maternal Grandfather newly diagnosed 2017 at age 90 Psoriasis Brother Psoriasis Brother Psoriasis Brother ALLERGIES: ALLERGIES Allergen Reactions Methylphenidate Mental Status Change Abilify [Aripiprazo* Rash Dilaudid [Hydromorp* Vomiting Haldol [Haloperidol] Rash Ketamine Vomiting Rexulti [Brexpipraz* Rash MEDICATIONS: benztropine (COGENTIN) 0.5 mg tablet Take 0.5 mg by mouth once daily. prazosin (MINIPRESS) 1 mg cap Take 1 mg by mouth daily at bedtime. hydrOXYzine HCl (ATARAX) 25 mg tablet Take 25 mg by mouth two times a day as needed for anxiety. MULTIVITAMIN ORAL Take by mouth. metoprolol succinate ER (TOPROL XL) 50 mg 24 hr tablet Take 1 tablet by mouth every afternoon. Appointment needed pantoprazole DR (PROTONIX) 40 mg tablet TAKE 1 TABLET BY MOUTH EVERY DAY QUEtiapine (SEROQUEL) 50 mg tablet Take 200 mg by mouth at bedtime as needed. famotidine (PEPCID) 20 mg tablet take 1 tablet by mouth twice a day lamoTRIgine (LAMICTAL) 100 mg tablet Take 1 tablet by mouth twice daily. lithium carbonate ER 300 mg CR tablet Take 2 tablets by mouth twice daily. aspirin, enteric coated (ASPIRIN, ENTERIC COATED) 81 mg EC tablet Take 81 mg by mouth once daily. Aaliyah Felix RN PHYSICAL EXAMINATION: BP 116/73 Pulse 72 Ht 172.7 cm (5' 8") Wt 66.7 kg (147 lb) LMP 11/30/2023 (Approximate) BMI 22.35 kg/m? General: Well appearing, in no acute distress, speaking in complete sentences. Skin: No clubbing, no cyanosis. Neck: no jugular venous distention, Lungs: Clear to auscultation bilaterally, no wheezing or rhonchi. Heart: Regular rhythm, PMI not displaced, S1, S2 normal, no S3, no S4, no heaves, no rub and no murmur. Abdomen: Soft, nontender, bowel sounds normal, no palpable organomegaly, no bruits. Extremities: No peripheral edema . Grade 2/4 distal pulses bilaterally. Neuro: Oriented to person, place and time, alert, cooperative, gait coordinated. CARDIOVASCULAR MEDICINE TESTING: ECG - sinus rhythm, 65 bpm. o 02/01/2022-02/13/2022 Preliminary Findings: Patient had a min HR of 50 bpm, max HR of 141 bpm, and avg HR of 79 bpm. Predominant underlying rhythm was Sinus Rhythm. 1 run of Supraventricular Tachycardia occurred lasting 4 beats with a max rate of 139 bpm (avg 136 bpm). Suprave (more content not included)... [facility] 12-29-2024 History of Present illness Narrative 12-29-2024 This technical document writer was scheduled to meet with Arcadio for a diagnostic assessment via Doxy. She was a no show / no call for the appointment. This technical document writer called the client and left contact information. This is the second assessment that has been missed. The client has been referred to same day walk in services. Letter sent. documented in this encounter [employer] Phone: 12-18-2024 History of Present illness Narrative 12-18-2024 This technical document writer was scheduled to meet Arcadio for a video assessment via Doxy. She was a NS / NC for the appointment. Multiple attempts were made to engage via Doxy with no response. A call resulted in no answer and no voicemail to leave a message. The missed DA Letter has been sent. documented in this encounter [employer] Phone: 12-18-2024 Nurse Note 12-18-2024 At 1:42 pm, I called Arcadio who has not responded to two attempts to engage on Doxy for the assessment. No answer. The cell phone voicemail has not been sent up therefore no message with contact information could be left for a return call. documented in this encounter [employer] [facility] Work Phone: 12-18-2024 History of Present illness Narrative 12-18-2024 Due to there being no response to the Doxy link, at 1:35 pm, I resent the the link to Arcadio. documented in this encounter [employer] Work Phone: 12-18-2024 History of Present illness Narrative 12-18-2024 At 1:30, this technical document writer sent the Doxy link to Arcadio. documented in this encounter [employer] Work Phone: 12-11-2024 Note DISCHARGE SUMMARY [address] Lily Quiroz Date of : 1990 34 year old adult Attending Jose Ro MD Date of Admission 12/07/2024 Date of Discharge 12/11/2024 Final Diagnosis: Bipolar 1 disorder (HCC) Hospital Problems as of 12/11/2024 * (Principal) Bipolar 1 disorder (HCC) Atrial fibrillation (HCC) Post traumatic stress disorder (PTSD) ADHD (attention deficit hyperactivity disorder) No discharge procedures on file. No future appointments. Condition at Discharge improved Symptoms to look out for after discharge: Please follow symptoms to look out to Call provider or return to ED Activity no restrictions Diet no restrictions Disposition home Functional Status ambulatory For addt'l facility discharge info click 'Facility Discharge' tab. Reason for Hospitalization Mr. Lily Quiroz is a 34 year old female to male transgender with a past psychiatric history of Bipolar disorder type I, Post-traumatic stress disorder, Attention deficit hyperactivity disorder who was initially brought in by self for suicidal ideation due to ecent medication changes and housing instability. Per ED interview: Lily Quiroz is a 34 year old male seen in consultation for medical clearance for psychiatric admission. Pt reports has hx of afib, on aspirin and metoprolol. And some other chronic conditions. Reports had some blood work at [facility] a few weeks ago that may have been abnormal. Review of External (Non-MH ED) Notes: Labs from [facility] reviewed and show in October pt hgb around 11 and so was WBC count. Discussion with External Provider: Race Steward from psych service recommends psych admission for psychosis Medication Management: clear to continue home list of medications as is Independent Test Interpretation: Lab studies reviewed, cbc with stable mild anemia, no leukocytosis, ck normal, lfts normal, bmp without nae, etoh neg, ua without infxn ASSESSMENT AND RECOMMENDATIONS: Continue home medication list. No changes needed The patient has had a focused medical assessment and is medically appropriate for further evaluation and management by psychiatry. These findings have been relayed to the primary team. Ariel Villeda MD Per Psych ED consult: Patient was tearful. Patient states he has been having psychotic episode for the 1st time since 2 months ago. States that there was a week of "blackouts". Patient states that he has been hearing voices, having visual hallucinations, having delusions of reference. States he thought his doctor was trying to harm him and [facility] out what is going on. Patient states she sees Dr. Peterson for outpatient who told patient to come in today or he would pink slip him because patient was having command auditory hallucination, suicidal ideation and homicidal ideation towards his brother. Patient states that he identifies as trans gender male and goes by Db. Patient states that he was living with his mother, but has 5 brothers, who made arrangements for her to move in with 1 of the brothers, but that brother did not realize that this arrangement was permanent and wanted her out. Patient does not know where he will go after this. And would like resources for housing. Patient states that he has tried "almost every antipsychotic", Invega gave him TD and he has been on tetrabenazine with mild improvement. He also tried Risperdal (increased prolactin), allergic to abilify, rexulti, haldol (rash), states that higher doses of Seroquel gave her Parkinson's symptoms. Patient states that he has been having a lot of visual hallucinations, has been seeing objects moving such as the towels on a rack and thinks that they have personality. Does not have any SI right now but had them earlier today. Patient also states that he has not being eating or drinking, has not been able to care for self much. Patient was agreeable to admission. Per chart review/Care Everywhere Extensive psych hx with , OP provider Dr. Peterson at Most recent visit 12/07/24 (today) Lily Quiroz "Arcadio" is a 34 y.o. transgender male domiciled with family, on disability who presents for follow up with CC of Bipolar, PTSD (Post-Traumatic Stress Disorder), ADHD, Insomnia, and tardive dyskinesia. Pt is experiencing psychosis while taking quetiapine ER 150mg. Increased yesterday to 200mg but pt's psychosis and loss of functioning has worsened. Recommended pt go to ED for admission in attempt to stabilize psychosis. While pt could be pink-slipped on basis of inability to care for self (loss of ADLs) and recent CAH with HI pt was amenable to going in voluntarily. Plan: Bipolar d/o - quetiapine ER 200mg, continue lithium 600mg at bedtime (lvl 0.8), c/w lamotrigine 150mg BID, topiramate 25mg qAM and 100mg qhs PTSD/anxiety (more content not included)... [facility] 12-08-2024 Note BEHAVIORAL HEALTH TH ERAPEUTIC EVALUATION Completed via combination of chart review, clinical observation, nursing report, and patient interview (as able) Patient Name: Lily Quiroz Patient Date of : 1990 Patient Age: [age] year old Admission Date: 12/07/2024 Admission Diagnosis: Bipolar 1 disorder (HCC) [334650] COVID PROTOCOL? [] YES [x] NO PROTOCOL DC DATE: Precautions: escape, assault, suicide, full code No past medical history on file. Current Admission Reason: On Interview: Patient was tearful. Patient states he has been having psychotic episode for the 1st time since 2 months ago. States that there was a week of "blackouts". Patient states that he has been hearing voices, having visual hallucinations, having delusions of reference. States he thought his doctor was trying to harm him and spent 20 hours on MyChart trying to figure out what is going on. Patient states she sees Dr. Peterson for outpatient who told patient to come in today or he would pink slip him because patient was having command auditory hallucination, suicidal ideation and homicidal ideation towards his brother. Patient states that he identifies as trans gender male and goes by Db. Patient states that he was living with his mother, but has 5 brothers, who made arrangements for her to move in with 1 of the brothers, but that brother did not realize that this arrangement was permanent and wanted her out. Patient does not know where he will go after this. And would like resources for housing. Patient states that he has tried "almost every antipsychotic", Invega gave him TD and he has been on tetrabenazine with mild improvement. He also tried Risperdal (increased prolactin), allergic to abilify, rexulti, haldol (rash), states that higher doses of Seroquel gave her Parkinson's symptoms. Patient states that he has been having a lot of visual hallucinations, has been seeing objects moving such as the towels on a rack and thinks that they have personality. Does not have any SI right now but had them earlier today. Patient also states that he has not being eating or drinking, has not been able to care for self much. Patient was agreeable to admission. Pt goes by "Arcadio" - transgender Chemical Dependency: POSITIVE UTOX? [x] YES [] NO POSITIVE FOR: amphetamines POSITIVE ALCOHOL? [] YES [x] NO CIWA PROTOCOL? [] YES [x] NO OCCUPATIONAL PROFILE CONTEXTS Environment (housing, community supports): Pt recently moved out of parent's home and into brother's house. Pt has a outpatient provider Trauma History: unknown Legal History: unknown OCCUPATIONS OCCUPATIONAL FUNCTION STATUS PRIOR TO ADMISSION Educational History: High school/GED Employment History (employment interests and pursuits, place of employment, income source): pt is currently on disability Meaningful Occupations (habits, routines, roles, rituals): poorly established or inconsistent habits/routines - concerns with having withdrawal from Klonopin (per chart) Leisure Exploration and Participation (interests, hobbies, healthy/unhealthy coping habits and strategies): poor coping skills due to mental health decompensation - pt has over 30 psych hospital admissions, h/o OD on Klonopin prescription Social Participation/Communication/Inte rpersonal Skills (supportive individuals - community/family/friends/signifi cant others, balanced relationships) : family Baseline ADL/IADL: independent with basic self care, assist with finances, shopping, and transportation Assessment information gathered through: chart review - pt in group and with provider (2 attempts made) CURRENT STATUS OF OCCUPATIONAL FUNCTION ADLs (bathing, toileting, dressing, feeding, personal hygiene, grooming): impaired or limited due to mental health decompensation IADLs (care of others/animals/dependents, community mobility, financial planner, home management, meal prep/cleanup, baptist/spiritual expression, safety/emergency maintenance, shopping): impaired or limited due to mental health decompensation/deficits Functional Motor/Praxis/Sensory Perception: (functional mobility, motor planning, balance, ROM, strength, endurance, sensation, pain, vision, hearing, adaptive equipment, activity modification): intact sensory and motor skills, pt ambulating independently around the unit H/O tardive dyskinesia Health Management (socio-emotional health promotion and maintenance, symptom and condition management, health care links, medication management, physical activity, nutrition management, personal care device management): impaired health management, impaired medication management, impaired symptoms and condition management Rest and Sleep (rest, sleep preparation, sleep participation) : impaired sleep due to mental health decompensation CURRENT BEHAVIORAL HEALTH PRESENTATION Self Reported Current Stressors and Mental Health Symptoms: Pt reported 10/ (more content not included)... [facility] 12-07-2024 Note Emergency Medicine P victoria Consult Note REASON FOR CONSULT: medical clearance for psychiatric admission There are no questions and answers to display. REQUESTING PHYSICIAN: Psychiatric ED Team HISTORY OF PRESENT ILLNESS: Lily Quiroz is a 34 year old male seen in consultation for medical clearance for psychiatric admission. Pt reports has hx of afib, on aspirin and metoprolol. And some other chronic conditions. Reports had some blood work at [facility] a few weeks ago that may have been abnormal FOCUSED EXAM: Constitutional: Nursing triage notes reviewed, Vital signs reviewed, Alert, and Awake HENT: No facial abrasions or nasal swelling, no intraoral or lip lacerations or bleeding Eyes: Pupils equal round and reactive to light Neck: Supple Lung: No respiratory distress Cardiac: Regular rate and rhythm Abdomen: Nondistended Ext: Full ROM all 4 extremities Neuro: Alert normally oriented and CN 3-12 intact Skin: No rash or lesion and Warm Psych: Normal affect and Good eye contact MEDICAL DECISION MAKING: Review of External (Non-MH ED) Notes: Labs from [facility] reviewed and show in October pt hgb around 11 and so was WBC count. Discussion with External Provider: Race Steward from psych service recommends psych admission for psychosis Medication Management: clear to continue home list of medications as is Independent Test Interpretation: Lab studies reviewed, cbc with stable mild anemia, no leukocytosis, ck normal, lfts normal, bmp without nae, etoh neg, ua without infxn ASSESSMENT AND RECOMMENDATIONS: Continue home medication list. No changes needed The patient has had a focused medical assessment and is medically appropriate for further evaluation and management by psychiatry. These findings have been relayed to the primary team. Ariel Villeda MD [facility] 11-27-2024 Telephone encounter Note Call from patient requesting refill. Requested Prescriptions Pending Prescriptions Disp Refills metoprolol succinate ER (TOPROL XL) 50 mg 24 hr tablet 90 tablet 0 Sig: Take 1 tablet by mouth every afternoon. Appointment needed Patient last seen 01/19/22 The patient has an appointment 01/2025 Josefina Jones [facility] 11-27-2024 Miscellaneous Notes Call from patient requesting refill. Requested Prescriptions Pending Prescriptions Disp Refills metoprolol succinate ER (TOPROL XL) 50 mg 24 hr tablet 90 tablet 0 Sig: Take 1 tablet by mouth every afternoon. Appointment needed Patient last seen 01/19/22 The patient has an appointment 01/2025 Josefina Jones documented in this encounter [facility] 11-12-2024 Note SARS-COV-2 (AGENT OF COVID-19) RNA: Not detected INFLUENZA A RNA: Not detected INFLUENZA B RNA: Not detected RESPIRATORY SYNCYTIAL VIRUS (RSV) RNA: Not detected [facility] Comment on above: Performed By: #### [id number] ####[facility] [id number] [address] OF [facility] 10-30-2024 Telephone encounter Note Call from patient requesting refill. Requested Prescriptions Pending Prescriptions Disp Refills metoprolol succinate ER (TOPROL XL) 50 mg 24 hr tablet 30 tablet 0 Sig: Take 1 tablet by mouth every afternoon. Appointment needed Patient last seen 01/19/22 Sent the patient a message that an appointment is needed Josefina Jones [facility] 10-30-2024 Miscellaneous Notes Call from patient requesting refill. Requested Prescriptions Pending Prescriptions Disp Refills metoprolol succinate ER (TOPROL XL) 50 mg 24 hr tablet 30 tablet 0 Sig: Take 1 tablet by mouth every afternoon. Appointment needed Patient last seen 01/19/22 Sent the patient a message that an appointment is needed Josefina Jones documented in this encounter [facility] 10-25-2024 Note HNO ID: [id number] Author: JUAN DAVID NO MD Service: ? Author Type: Physician Type: Progress Notes Filed: 10/25/2024 09:11 Note Text: [facility] - NEW PATIENT EVALUATION Primary Care Provider: Danny Lea MD [id number] [facility] [id number] Dear Danny Lea MD: I had the pleasure of evaluating Mr. Quiroz in our clinic today. As you know he is a 34 year old right-handed adult who presents for evaluation of since . He is seen alone. We had a visit using: [employer] I have communicated my name and active licensure. The patient's identity and physical location were verified at the time of this visit. 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 Subjective HISTORY OF PRESENT ILLNESS: Initial HPI Has a history of tardive dyskinesia and it was recommended that he see a Neurologist. Presumably occurred as a result of Invega with hand tremor, head movements, and tardive facial movements as well as trouble with swallowing and speech. Started while weaning off. This occurred again twice, but he was not on antipsychotics at the time. Symptoms were essentially the same. He is not sure if there were any other significant stressors when the symptoms came back but is able to recall that on the second recurrence was when started on oxcarbazepine, which didn't do anything. Each instance lasted a couple weeks.The third time was early Nov and all happened within a course of a year. Questionnaires: In addition, the following areas that may be affected by abnormal involuntary movements were evaluated: Daily activities Difficulties with eatin (none) Difficulties in dressin (none) Difficulties with hygiene activities: 0 (none) Difficulties with handwritin (none) Difficulties with doing hobbies and other activities: 0 (none) Difficulties turning in bed: 0 (none) Difficulties getting out of bed, car or chair: 0 (none) Tremors/Gait/Balance Shaking or tremors: Yes (slight) Walking and balance problems: 0 (none) Number of falls in the Last Month: 0 Gait freezin (none) Autonomic/Pain Lightheadeness on standin (none) Urinary problems: 0 (none) Constipation problems: Yes (slight) Pain and other sensations: 0 (none) Speech/Swallowing Speech problems: 0 (none) Droolin (none) Chewing and swallowing problems: 0 (none) Sleep/Fatigue Sleep problems: Yes (mild) Daytime sleepiness: Yes (mild) Fatigue: Yes (slight) Mood/Behavior Depression: PHQ-9 Score: 7 usually representing mild (5-9) depression. Anxiety: DIONE-7 Total Score: 14 usually representing moderate (10-14) anxiety. Finally, the following table shows the patient's overall global physical and mental health using the PROMIS scale: PROMIS-10 Flowsheet Row Appointment from 10/25/2024 in [facility] from 06/20/2024 in Endocrinology Global Physical Health T Score 54.1 50.8 Global Mental Health T Score 25.1 28.4 0-10 Standard Pain Scale 5 5 *PROMIS-10 scoring scale: mean = 50, over 50 is above average, under 50 is below average Review of Systems ALLERGIES Allergen Reactions Methylphenidate Mental Status Change Dilaudid [Hydromorp* Vomiting Ketamine Vomiting Current Outpatient Medications Medication Sig QUEtiapine (SEROQUEL) 50 mg tablet Take 50 mg by mouth at bedtime as needed. famotidine (PEPCID) 20 mg tablet take 1 tablet by mouth twice a day metoprolol succinate ER (TOPROL XL) 50 mg 24 hr tablet Take 1 tablet by mouth every afternoon. Appointment needed lactulose 20 gram/30 mL solution Take 30 mL by mouth as needed (for constipation). bisacodyl EC (DULCOLAX, BISACODYL,) 5 mg EC tablet Take 1-2 tablets by mouth once daily as needed for constipation. for constipation. polyethylene glycol 3350 (MIRALAX) 17 gram/dose powder Take 17 g by mouth once daily. Dissolve dose in 4 - 8 ounces of liquid and take as directed. pantoprazole DR (PROTONIX) 40 mg tablet take 1 tablet by mouth every day lamoTRIgine (LAMICTAL) 100 mg tablet Take 1 tablet by mouth twice daily. lithium carbonate ER 300 mg CR tablet Take 2 tablets by mouth twice daily. metFORMIN (GLUCOPHAGE) 500 mg tablet Take 1 tablet by mouth twice daily with meals. clonazePAM (KLONOPIN) 1 mg tablet May take 0.5 tablets by mouth once daily as needed for anxiety. May also take 1 tablet at bedtime as needed for anxiety. topiramate (TOPAMAX) 100 mg tablet Take 100 mg by mouth daily at bedtime. amphetamine-dextroamphetamine XR (ADDERALL XR) 20 mg capsule Take 30 mg by mouth two times a day. aspirin, enteric coated (ASPIRIN, ENTERIC COATED) 81 mg EC tablet Take 81 mg by mouth once daily. No current facility-administered medications for this visit. Past Medical and Surgical History: has a (more content not included)... [facility] 10-25-2024 History of Present illness Narrative [facility] - NEW PATIENT EVALUATION Primary Care Provider: aDnny Lea MD [id number] [place] [address] Dear Danny Lea MD: I had the pleasure of evaluating Mr. Quiroz in our clinic today. As you know he is a 34 year old right-handed adult who presents for evaluation of since . He is seen alone. We had a visit using: [employer] I have communicated my name and active licensure. The patient's identity and physical location were verified at the time of this visit. 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 Subjective HISTORY OF PRESENT ILLNESS: Initial HPI Has a history of tardive dyskinesia and it was recommended that he see a Neurologist. Presumably occurred as a result of Invega with hand tremor, head movements, and tardive facial movements as well as trouble with swallowing and speech. Started while weaning off. This occurred again twice, but he was not on antipsychotics at the time. Symptoms were essentially the same. He is not sure if there were any other significant stressors when the symptoms came back but is able to recall that on the second recurrence was when started on oxcarbazepine, which didn't do anything. Each instance lasted a couple weeks.The third time was early Nov and all happened within a course of a year. Questionnaires: In addition, the following areas that may be affected by abnormal involuntary movements were evaluated: Daily activities Difficulties with eatin (none) Difficulties in dressin (none) Difficulties with hygiene activities: 0 (none) Difficulties with handwritin (none) Difficulties with doing hobbies and other activities: 0 (none) Difficulties turning in bed: 0 (none) Difficulties getting out of bed, car or chair: 0 (none) Tremors/Gait/Balance Shaking or tremors: Yes (slight) Walking and balance problems: 0 (none) Number of falls in the Last Month: 0 Gait freezin (none) Autonomic/Pain Lightheadeness on standin (none) Urinary problems: 0 (none) Constipation problems: Yes (slight) Pain and other sensations: 0 (none) Speech/Swallowing Speech problems: 0 (none) Droolin (none) Chewing and swallowing problems: 0 (none) Sleep/Fatigue Sleep problems: Yes (mild) Daytime sleepiness: Yes (mild) Fatigue: Yes (slight) Mood/Behavior Depression: PHQ-9 Score: 7 usually representing mild (5-9) depression. Anxiety: DIONE-7 Total Score: 14 usually representing moderate (10-14) anxiety. Finally, the following table shows the patient's overall global physical and mental health using the PROMIS scale: PROMIS-10 Flowsheet Row Appointment from 10/25/2024 in Neu[facility] from 06/20/2024 in Endocrinology Global Physical Health T Score 54.1 50.8 Global Mental Health T Score 25.1 28.4 0-10 Standard Pain Scale 5 5 *PROMIS-10 scoring scale: mean = 50, over 50 is above average, under 50 is below average Review of Systems ALLERGIES Allergen Reactions Methylphenidate Mental Status Change Dilaudid [Hydromorp* Vomiting Ketamine Vomiting Current Outpatient Medications Medication Sig QUEtiapine (SEROQUEL) 50 mg tablet Take 50 mg by mouth at bedtime as needed. famotidine (PEPCID) 20 mg tablet take 1 tablet by mouth twice a day metoprolol succinate ER (TOPROL XL) 50 mg 24 hr tablet Take 1 tablet by mouth every afternoon. Appointment needed lactulose 20 gram/30 mL solution Take 30 mL by mouth as needed (for constipation). bisacodyl EC (DULCOLAX, BISACODYL,) 5 mg EC tablet Take 1-2 tablets by mouth once daily as needed for constipation. for constipation. polyethylene glycol 3350 (MIRALAX) 17 gram/dose powder Take 17 g by mouth once daily. Dissolve dose in 4 - 8 ounces of liquid and take as directed. pantoprazole DR (PROTONIX) 40 mg tablet take 1 tablet by mouth every day lamoTRIgine (LAMICTAL) 100 mg tablet Take 1 tablet by mouth twice daily. lithium carbonate ER 300 mg CR tablet Take 2 tablets by mouth twice daily. metFORMIN (GLUCOPHAGE) 500 mg tablet Take 1 tablet by mouth twice daily with meals. clonazePAM (KLONOPIN) 1 mg tablet May take 0.5 tablets by mouth once daily as needed for anxiety. May also take 1 tablet at bedtime as needed for anxiety. topiramate (TOPAMAX) 100 mg tablet Take 100 mg by mouth daily at bedtime. amphetamine-dextroamphetamine XR (ADDERALL XR) 20 mg capsule Take 30 mg by mouth two times a day. aspirin, enteric coated (ASPIRIN, ENTERIC COATED) 81 mg EC tablet Take 81 mg by mouth once daily. No current facility-administered medications for this visit. Past Medical and Surgical History: has a past medical history of Anxiety, Atrial fibrillation (HCC) (05/2017), Bipolar 1 disorder ([facility]) (2014), History of seizures, MTHFR mutation (methylenetetrahydrofolate reductase), Panic attacks, and PTSD (post-traumatic stress disorder). has a past surgical history that includes extensive jaw surgery (2001); past surgical history of; and past surgical history of. Social History Tobacco Use Smoking status: Never Smokeless tobacco: Never Vaping Use Vaping status: Never Used Substance Use Topics Alcohol use: No Drug use: Not Currently Types: Marijuana Comment: 1 gummy THC; only used once Family History: family history includes Hypertension in his mother; MTHFR in his mother; Psoriasis in his brother, brother, brother, and brother; atrial fibrillation in his maternal grandfather; crohns in his brother; essential tremor in his mother; lupus in his mother; mirgraines in his mother; pulmonary embolism in his mother; rheumatoid arthritis in his brother. In addition, the patient denies any family history of PD/parkinsonism, tremor, other involuntary movement disorders. Objective Physical Examination: General: Awake, alert, interactive, no acute distress, good nutritional status, normal development, well-kept Awake, alert, oriented. Able to connect to virtual platform and provide an accurate history Cranial nerves grossly intact aside from tardive-appearing tongue movements Able to move extremities spontaneously without any apparent weakness No bradykinesia. Postural tremor, low amplitude, intermittent and jerky Exam limited by virtual platform Assessment and Plan: Assessment Mr. Quiroz is a right-handed 34 year old adult with symptoms that have a similar phenomenology consistent with tardive dyskinesia and drug induced parkinsonism, the latter of which has resolved after stopping high dose Seroquel. On exam he does have some tongue movements that appear tardive, but the exam is benign aside from that. Overall I think this is either tardive dyskinesia secondary to one of his antipsychotics that subsequently improved to the extent of not being clinically evident, and subsequently resurfaced in the setting of a physiologic or psychological stressor. Alternatively this could be lithium-induced TD. Oxcarbazapine could potentially increase neurotoxicity of lithium, which could explain why his recent episode started with an otherwise innocuous medication. At this point the best course of medication would be to avoid antipsychotics as much as possible. The fact that he had a psychotic episode when off neuroleptics is concerning, but it seems that this was triggered by insomnia, which is something that can be optimized. If psychosis is a considerable risk, then antipsychotic medications should not be withheld. The following are the current problems noted and addressed during this visit: Insomnia, unspecified type Dyskinesia, tardive (primary encounter diagnosis) Plan 10/25/2024 Visit: Referral to Behavioral Sleep Therapy Try to avoid antipsychotics if possible Can consider a VMAT2 inhibitor if antipsychotics are required and symptoms return Do not recommend stopping Athalia at this time Follow up in 4 months in person Interested in clinical research? Not discussed Thank you for allowing me to be part of the clinical care of this patient! I look forward to continued participation in the patient s care with you. Please do not hesitate to call with any questions. Sincerely, Juan David No MD Associate Staff [facility] documented in this encounter [facility] 09-07-2024 History of Present illness Narrative RADIOLOGY SERVICE PROGRESS NOTE SERVICE DATE: 09/07/2024 SERVICE TIME: 08:40 AM PATIENT IDENTITY VERIFICATION COMPLETED USING TWO (2) STANDARD IDENTIFIERS: Name and Date of confirmed by patient verbally FALL SCREENING: Has the patient had 2 falls in the last year or 1 fall with injury or currently using an Ambulatory Assistive Device (Walker, Cane, Wheelchair, Crutches, etc.)? No PATIENT GENDER DATA: .adult : No status: No ALLERGIES: Reviewed and unchanged MEDICATIONS REVIEWED: No PATIENT RELEVANT IMPLANT DATA REVIEWED: Not Applicable PATIENT PRESENTS WITH AN IMPLANTABLE OR ATTACHED PHYSICIAN PRACTICE ADMINISTRATOR: n/a CREATININE: Creatinine Date Value Ref Range Status 09/28/2023 0.93 0.73 - 1.22 mg/dL Final 07/15/2023 0.90 0.73 - 1.22 mg/dL Final 12/14/2022 0.68 (L) 0.73 - 1.22 mg/dL Final Estimated Glomerular Filtration Rate Date Value Ref Range Status 09/28/2023 82 >=60 mL/min/1.73m Final Comment: Estimated Glomerular Filtration Rate (eGFR) is calculated using the 2020 CKD-EPI creatinine equation. This equation utilizes serum creatinine, sex, and age as parameters. The creatinine assay has traceable calibration to isotope dilution-mass spectrometry. Refer to KDIGO guidelines for clinical interpretation. In patients with unstable renal function, e.g. those with acute kidney injury, the eGFR may not accurately reflect actual GFR. eGFR- Date Value Ref Range Status 06/11/2021 >60 Final P.O.C.T. RESULTS: N/A September 07, [address] PERFORMED: No IV SITE: RI only - not applicable, oral or physician administered agents given to patient POST EXAM PIV STATUS: Not applicable PROCEDURE TYPE: NM INJECT: Thyroid uptake and scan. 391 microcuries Nal-123 Capsules. No other medications given.. ADMINISTRATION TIME: 08:47 PATIENT DISCHARGED TO: Ambulatory patient, left RI department area. A Diagnostic radioactive procedure has taken place, with no further precautions necessary other than routine body substance precautions. More information regarding radiation safety can be found using this link: [email or web address] uclear%[email or web address] df SIGNATURE: SARTHAK Enriquez) PATIENT NAME: Lily Quiroz DATE: September 07, 2024 TIME: 08:50 AM PAGER/CONTACT #: documented in this encounter [facility] 09-07-2024 Note HNO ID: [id number] Author: EULALIA VELARDE RT (R) Service: Nuclear Medicine Author Type: Technologist Type: Progress Notes Filed: 09/07/2024 13:33 Note Text: RADIOLOGY SERVICE PROGRESS NOTE SERVICE DATE: 09/07/2024 SERVICE TIME: 08:40 AM PATIENT IDENTITY VERIFICATION COMPLETED USING TWO (2) STANDARD IDENTIFIERS: Name and Date of confirmed by patient verbally FALL SCREENING: Has the patient had 2 falls in the last year or 1 fall with injury or currently using an Ambulatory Assistive Device (Walker, Cane, Wheelchair, Crutches, etc.)? No PATIENT GENDER DATA: .adult : No status: No ALLERGIES: Reviewed and unchanged MEDICATIONS REVIEWED: No PATIENT RELEVANT IMPLANT DATA REVIEWED: Not Applicable PATIENT PRESENTS WITH AN IMPLANTABLE OR ATTACHED PHYSICIAN PRACTICE ADMINISTRATOR: n/a CREATININE: Creatinine Date Value Ref Range Status 09/28/2023 0.93 0.73 - 1.22 mg/dL Final 07/15/2023 0.90 0.73 - 1.22 mg/dL Final 12/14/2022 0.68 (L) 0.73 - 1.22 mg/dL Final Estimated Glomerular Filtration Rate Date Value Ref Range Status 09/28/2023 82 >=60 mL/min/1.73m? Final Comment: Estimated Glomerular Filtration Rate (eGFR) is calculated using the 2020 CKD-EPI creatinine equation. This equation utilizes serum creatinine, sex, and age as parameters. The creatinine assay has traceable calibration to isotope dilution-mass spectrometry. Refer to KDIGO guidelines for clinical interpretation. In patients with unstable renal function, e.g. those with acute kidney injury, the eGFR may not accurately reflect actual GFR. eGFR- Date Value Ref Range Status 06/11/2021 >60 Final P.O.C.T. RESULTS: N/A September 07, [address] PERFORMED: No IV SITE: RI only - not applicable, oral or physician administered agents given to patient POST EXAM PIV STATUS: Not applicable PROCEDURE TYPE: NM INJECT: Thyroid uptake and scan. 391 microcuries Nal-123 Capsules. No other medications given.. ADMINISTRATION TIME: 08:47 PATIENT DISCHARGED TO: Ambulatory patient, left [place] department area. A Diagnostic radioactive procedure has taken place, with no further precautions necessary other than routine body substance precautions. More information regarding radiation safety can be found using this link: [email or web address] 20Diagnostic%20Nuclear%20Medicin e%[email or web address] SIGNATURE: RT Zoe(R) PATIENT NAME: Lily Quiroz DATE: September 07, 2024 TIME: 08:50 AM PAGER/CONTACT #: [facility] 07-22-2024 Note Sinus rhythm Compared to ECG at 04/29/2024 08:37:14 BORDERLINE ECG Electronic Signature: AMAN HORNE DO 07/22/2024 21:46:35 [facility] 07-12-2024 Telephone encounter Note Call from pharmacy requesting refill. Requested Prescriptions Pending Prescriptions Disp Refills metoprolol succinate ER (TOPROL XL) 50 mg 24 hr tablet [Pharmacy Med Name: METOPROLOL SUCC ER 50 MG TAB] 90 tablet 3 Sig: take 1 tablet by mouth every day Patient last seen 01/19/22 Josefina Jones [facility] 07-12-2024 Miscellaneous Notes Call from pharmacy requesting refill. Requested Prescriptions Pending Prescriptions Disp Refills metoprolol succinate ER (TOPROL XL) 50 mg 24 hr tablet [Pharmacy Med Name: METOPROLOL SUCC ER 50 MG TAB] 90 tablet 3 Sig: take 1 tablet by mouth every day Patient last seen 01/19/22 Josefina Jones documented in this encounter [facility] 06-21-2024 Telephone encounter Note Please help schedule RUQ Ultrasound and Gastric emptying study Will follow up with pt after both tests are done -Desiree William PA-C [facility] 06-21-2024 Miscellaneous Notes Please help schedule RUQ Ultrasound and Gastric emptying study Will follow up with pt after both tests are done -Desiree William PA-C documented in this encounter [facility] 06-21-2024 Note HNO ID: [id number] Author: DESIREE WILLIAM PA-C Service: ? Author Type: Physician Hoe Worker Type: Progress Notes Filed: 06/21/2024 10:35 Note Text: GASTROENTEROLOGY NEW PATIENT VIRTUAL VISIT Patient consented to this visit being virtually and understands there are limitations inherent in this type of visit. I have communicated my name and active licensure. The patient's identity and physical location were verified at the time of this visit. 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 This is a virtual visit using [employer] Video Visit. It required patient-provider interaction for the medical decision making as documented below. CC: HPI: Lily Quiroz is a 34 year old adult who presents for N/V. The pt reports N/V daily for the last month. Sx are more often at night. Sx are not always after eating, feels more random. 1-3 episodes of vomiting. Feels like sudden onset. No bloody vomit. Describes as bile. No abdominal pain. No diarrhea. No fevers. Was given zofran without relief. Went to [facility]- was told they thought sx were related to constipation. pt had an enema without relief. BM- infrequent. Taking milk of mag with some relief. No bloody stool. Weight loss- intentional loss with diet. 60 lbs. Pt still takes pantoprazole daily and pepcid BID. Seems to help gerd sx. Etoh- none Marijuana - none Current Outpatient Medications Medication Sig pantoprazole DR (PROTONIX) 40 mg tablet take 1 tablet by mouth every day famotidine (PEPCID) 20 mg tablet take 1 tablet by mouth twice a day lurasidone (LATUDA) 60 mg tab tablet paliperidone ER (INVEGA) 6 mg 24 hr tablet metoprolol succinate ER (TOPROL XL) 50 mg 24 hr tablet take 1 tablet by mouth every day plecanatide (TRULANCE) 3 mg tablet Take 1 tablet (3 mg) by mouth once daily. QUEtiapine (SEROQUEL) 300 mg tablet Take 300 mg by mouth daily at bedtime. lamoTRIgine (LAMICTAL) 100 mg tablet Take 1 tablet by mouth twice daily. lithium carbonate ER 300 mg CR tablet Take 2 tablets by mouth twice daily. metFORMIN (GLUCOPHAGE) 500 mg tablet Take 1 tablet by mouth twice daily with meals. QUEtiapine (SEROQUEL) 100 mg tablet Take 1 tablet by mouth daily at bedtime. clonazePAM (KLONOPIN) 1 mg tablet May take 0.5 tablets by mouth once daily as needed for anxiety. May also take 1 tablet at bedtime as needed for anxiety. topiramate (TOPAMAX) 100 mg tablet Take 100 mg by mouth daily at bedtime. amphetamine-dextroamphetamine XR (ADDERALL XR) 20 mg capsule Take 40 mg by mouth once daily. aspirin, enteric coated (ASPIRIN, ENTERIC COATED) 81 mg EC tablet Take 81 mg by mouth once daily. No current facility-administered medications for this visit. PAST MEDICAL HISTORY No date: Anxiety 05/2017: Atrial fibrillation (HCC) Comment: diagnosed age 23 2015: Bipolar 1 disorder (HCC) No date: History of seizures Comment: until age 15 No date: MTHFR mutation (methylenetetrahydrofolate reductase) No date: Panic attacks No date: PTSD (post-traumatic stress disorder) Comment: complex PAST SURGICAL HISTORY 2002: EXTENSIVE JAW SURGERY No date: PAST SURGICAL HISTORY OF Comment: sinus surgery for deviated septum No date: PAST SURGICAL HISTORY OF Comment: ECT treatments - 23 FAMILY HISTORY Problem Relation Age of Onset Hypertension Mother other (pulmonary embolism) Mother PE x 9 other (MTHFR) Mother other (lupus) Mother other (essential tremor) Mother other (mirgraines) Mother Psoriasis Brother other (crohns) Brother other (rheumatoid arthritis) Brother other (atrial fibrillation) Maternal Grandfather newly diagnosed 2016 at age 90 Psoriasis Brother Psoriasis Brother Psoriasis Brother Social History Tobacco Use Smoking status: Never Smokeless tobacco: Never Vaping Use Vaping Use: Never used Substance Use Topics Alcohol use: No Drug use: Not Currently Types: Marijuana Comment: 1 gummy THC; only used once ALLERGIES Allergen Reactions Methylphenidate Mental Status Change Dilaudid [Hydromorp* Vomiting Ketamine Vomiting PHYSICAL EXAMINATION: No physical exam was performed due to this visit being performed via virtually to decrease exposure to Covid 19. Patient was awake, alert, oriented, was able to speak clearly and answer questions. Patient did not seem to be in any distress. Patient appeared comfortable and was sitting and moving around comfortably. EGD 12/14/23 Impression: - Z-line regular, 35 cm from the incisors. - Normal esophagus. - Normal stomach. - Normal examined duodenum. - No specimens collected. Recommendation: - Resume previous diet. - Continue present medications ASSESSMENT AND PLAN: Arcadio is a 34 y/o patient who presents for N/V x1 month. Sx are often at night, sx not a (more content not included)... [facility] 06-21-2024 History of Present illness Narrative GASTROENTEROLOGY NEW PATIENT VIRTUAL VISIT Patient consented to this visit being virtually and understands there are limitations inherent in this type of visit. I have communicated my name and active licensure. The patient's identity and physical location were verified at the time of this visit. 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 This is a virtual visit using [employer] Video Visit. It required patient-provider interaction for the medical decision making as documented below. CC: HPI: Lily Quiroz is a 34 year old adult who presents for N/V. The pt reports N/V daily for the last month. Sx are more often at night. Sx are not always after eating, feels more random. 1-3 episodes of vomiting. Feels like sudden onset. No bloody vomit. Describes as bile. No abdominal pain. No diarrhea. No fevers. Was given zofran without relief. Went to [facility]- was told they thought sx were related to constipation. pt had an enema without relief. BM- infrequent. Taking milk of mag with some relief. No bloody stool. Weight loss- intentional loss with diet. 60 lbs. Pt still takes pantoprazole daily and pepcid BID. Seems to help gerd sx. Etoh- none Marijuana - none Current Outpatient Medications Medication Sig pantoprazole DR (PROTONIX) 40 mg tablet take 1 tablet by mouth every day famotidine (PEPCID) 20 mg tablet take 1 tablet by mouth twice a day lurasidone (LATUDA) 60 mg tab tablet paliperidone ER (INVEGA) 6 mg 24 hr tablet metoprolol succinate ER (TOPROL XL) 50 mg 24 hr tablet take 1 tablet by mouth every day plecanatide (TRULANCE) 3 mg tablet Take 1 tablet (3 mg) by mouth once daily. QUEtiapine (SEROQUEL) 300 mg tablet Take 300 mg by mouth daily at bedtime. lamoTRIgine (LAMICTAL) 100 mg tablet Take 1 tablet by mouth twice daily. lithium carbonate ER 300 mg CR tablet Take 2 tablets by mouth twice daily. metFORMIN (GLUCOPHAGE) 500 mg tablet Take 1 tablet by mouth twice daily with meals. QUEtiapine (SEROQUEL) 100 mg tablet Take 1 tablet by mouth daily at bedtime. clonazePAM (KLONOPIN) 1 mg tablet May take 0.5 tablets by mouth once daily as needed for anxiety. May also take 1 tablet at bedtime as needed for anxiety. topiramate (TOPAMAX) 100 mg tablet Take 100 mg by mouth daily at bedtime. amphetamine-dextroamphetamine XR (ADDERALL XR) 20 mg capsule Take 40 mg by mouth once daily. aspirin, enteric coated (ASPIRIN, ENTERIC COATED) 81 mg EC tablet Take 81 mg by mouth once daily. No current facility-administered medications for this visit. PAST MEDICAL HISTORY No date: Anxiety 05/2017: Atrial fibrillation (HCC) Comment: diagnosed age 23 2015: Bipolar 1 disorder (HCC) No date: History of seizures Comment: until age 15 No date: MTHFR mutation (methylenetetrahydrofolate reductase) No date: Panic attacks No date: PTSD (post-traumatic stress disorder) Comment: complex PAST SURGICAL HISTORY 2002: EXTENSIVE JAW SURGERY No date: PAST SURGICAL HISTORY OF Comment: sinus surgery for deviated septum No date: PAST SURGICAL HISTORY OF Comment: ECT treatments - 23 FAMILY HISTORY Problem Relation Age of Onset Hypertension Mother other (pulmonary embolism) Mother PE x 9 other (MTHFR) Mother other (lupus) Mother other (essential tremor) Mother other (mirgraines) Mother Psoriasis Brother other (crohns) Brother other (rheumatoid arthritis) Brother other (atrial fibrillation) Maternal Grandfather newly diagnosed 2016 at age 90 Psoriasis Brother Psoriasis Brother Psoriasis Brother Social History Tobacco Use Smoking status: Never Smokeless tobacco: Never Vaping Use Vaping Use: Never used Substance Use Topics Alcohol use: No Drug use: Not Currently Types: Marijuana Comment: 1 gummy THC; only used once ALLERGIES Allergen Reactions Methylphenidate Mental Status Change Dilaudid [Hydromorp* Vomiting Ketamine Vomiting PHYSICAL EXAMINATION: No physical exam was performed due to this visit being performed via virtually to decrease exposure to Covid 19. Patient was awake, alert, oriented, was able to speak clearly and answer questions. Patient did not seem to be in any distress. Patient appeared comfortable and was sitting and moving around comfortably. EGD 12/14/23 Impression: - Z-line regular, 35 cm from the incisors. - Normal esophagus. - Normal stomach. - Normal examined duodenum. - No specimens collected. Recommendation: - Resume previous diet. - Continue present medications ASSESSMENT AND PLAN: Arcadio is a 34 y/o patient who presents for N/V x1 month. Sx are often at night, sx not always after eating. 1-2 episodes of non bloody emesis. No relief with zofran. No abd pain, diarrhea or fevers. Last EGD was 7 months ago, normal overall. Today I recommended the pt take pantoprazole 40 mg BID. Also ordered a GES + RUQ US. Pt also has a hx of constipation, I think she would benefit from trying a prescription medication but will have to start with other medications first. If no relief after at least 14 days will try to get Amitiza approved ASSESSMENT/PLAN: 1. Nausea - ICD9: 787.02, ICD10: R11.0 (primary diagnosis) - NM GASTRIC EMPTYING SOLID - US ABD RIGHT UPPER QUADRANT 2. Vomiting without nausea, unspecified vomiting type - ICD9: 787.03, ICD10: R11.11 - NM GASTRIC EMPTYING SOLID - US ABD RIGHT UPPER QUADRANT - pt is also being worked up for hyperthyroidism which could be contributing. Would like to r/o GI causes of N/V 3. Irritable bowel syndrome with constipation - ICD9: 564.1, ICD10: K58.1 - LACTULOSE 20 GRAM/30 ML ORAL SOLUTION- PRN - BISACODYL 5 MG TABLET,DELAYED RELEASE- PRN - POLYETHYLENE GLYCOL 3350 17 GRAM/DOSE ORAL POWDER- daily Desiree William PA-C I spent a total of 25 minutes on the date of the service which included preparing to see the patient, [id number] patient care, completing clinical documentation, counseling and educating the patient/family/caregiver, and ordering medications, tests, or procedures. documented in this encounter [facility] 06-20-2024 Instructions Blanca Momin MD - 06/20/2024 1:38 PM EDT Thyroid lab recheck + thyroid antibodies Will let you know if additional scans needed Please send me records from more recent thyroid lab recheck + ultrasound report documented in this encounter [facility] 06-20-2024 History of Present illness Narrative Images from the original note were not included. Endocrinology Virtual Visit This is a virtual visit using [employer] Zoom Video Visit. It required patient-provider interaction for the medical decision making as documented below. I have communicated my name and active licensure. The patient's identity and physical location were verified at the time of this visit. 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 Clinical Care Team -Referring Provider for today's visit: No ref. provider found -Primary Care Provider: Danny Lea MD History of present of illness Patient presents with: Thyroid Problem Arcadio Quiroz is a 34 year old adult who presents today for evaluation of hyperthyroidism. Patient presents as a self referral. My final recommendations will be communicated back to the PCP and referring provider by way of a copy of today's office notes. Low TSH noted on labs with psychiatrist (lithium monitoring, being treated for bipolar disorder), rechecked with PCP and confirmed low and had a normal thyroid US with them (May 2024) Has been having new vomiting recently. Also has tardive dyskinesia Of note has history of Afib, takes metoprolol for this. 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 Switched medications about 3mo ago. Doesn't think they checked pituitary specifically. I have reviewed his medical, surgical, family and social history and have updated medication and allergy information in the computerized patient record. ROS: Answers submitted by the patient for this visit: Endocrine Review of Systems (Submitted on 06/20/2024) Fatigue: No Night sweats: No Recent unintentional weight change: No--- has lost weight intentionally, about 60# over 5mo. Stable over past few weeks. Skin Color Changes: No Post-Nasal Drip: No Thyroid Pain (lower neck): No Trouble Swallowing: No Vision Disturbance: No, no dry eyes Chest pain: No Leg Swelling: No Blood Clots?: No Leg Pain while walking?: No Difficulty Breathing?: No Heartburn: Yes Nausea: Yes Vomiting: Yes Diarrhea: No Constipation: Yes, chronic and worse recently Abdominal pain: Yes Bone Pain?: No Muscle aches: No Muscle weakness: No Joint pain or stiffness: No Headaches: Yes Dizziness: No Numbness?: No Urgency to Urinate?: No Increased Urination: No Slow or Small Urine Stream?: No Are your menstrual cycles regular?: No Are your menstrual cycles irregular?: Yes Have your menstrual cycles stopped?: Yes Flushing: No Hot Flashes?: No Increased Thirst: Yes Change in Body Hair?: No Cold Intolerance: No Heat Intolerance: No No palpitations No tremors. TD mainly involving mouth symptoms. Mood improved from prior No difficulty sleeping All other systems reviewed and found to be negative except those mentioned in HPI PAST MEDICAL HISTORY No date: Anxiety 05/2017: Atrial fibrillation (HCC) Comment: diagnosed age 23 2014: Bipolar 1 disorder (HCC) No date: History of seizures Comment: until age 15 No date: MTHFR mutation (methylenetetrahydrofolate reductase) No date: Panic attacks No date: PTSD (post-traumatic stress disorder) Comment: complex PAST SURGICAL HISTORY 2001: EXTENSIVE JAW SURGERY No date: PAST SURGICAL HISTORY OF Comment: sinus surgery for deviated septum No date: PAST SURGICAL HISTORY OF Comment: ECT treatments - 23 Current Outpatient Medications Medication Sig pantoprazole DR (PROTONIX) 40 mg tablet take 1 tablet by mouth every day famotidine (PEPCID) 20 mg tablet take 1 tablet by mouth twice a day lurasidone (LATUDA) 60 mg tab tablet paliperidone ER (INVEGA) 6 mg 24 hr tablet metoprolol succinate ER (TOPROL XL) 50 mg 24 hr tablet take 1 tablet by mouth every day plecanatide (TRULANCE) 3 mg tablet Take 1 tablet (3 mg) by mouth once daily. QUEtiapine (SEROQUEL) 300 mg tablet Take 300 mg by mouth daily at bedtime. lamoTRIgine (LAMICTAL) 100 mg tablet Take 1 tablet by mouth twice daily. lithium carbonate ER 300 mg CR tablet Take 2 tablets by mouth twice daily. metFORMIN (GLUCOPHAGE) 500 mg tablet Take 1 tablet by mouth twice daily with meals. QUEtiapine (SEROQUEL) 100 mg tablet Take 1 tablet by mouth daily at bedtime. clonazePAM (KLONOPIN) 1 mg tablet May take 0.5 tablets by mouth once daily as needed for anxiety. May also take 1 tablet at bedtime as needed for anxiety. topiramate (TOPAMAX) 100 mg tablet Take 100 mg by mouth daily at bedtime. amphetamine-dextroamphetamine XR (ADDERALL XR) 20 mg capsule Take 40 mg by mouth once daily. aspirin, enteric coated (ASPIRIN, ENTERIC COATED) 81 mg EC tablet Take 81 mg by mouth once daily. No current facility-administered medications for this visit. ALLERGIES Allergen Reactions Methylphenidate Mental Status Change Dilaudid [Hydromorp* Vomiting Ketamine Vomiting FAMILY HISTORY Problem Relation Age of Onset Hypertension Mother other (pulmonary embolism) Mother PE x 9 other (MTHFR) Mother other (lupus) Mother other (essential tremor) Mother other (mirgraines) Mother Psoriasis Brother other (crohns) Brother other (rheumatoid arthritis) Brother other (atrial fibrillation) Maternal Grandfather newly diagnosed 2017 at age 90 Psoriasis Brother Psoriasis Brother Psoriasis Brother Social History Tobacco Use Smoking status: Never Smokeless tobacco: Never Vaping Use Vaping Use: Never used Substance Use Topics Alcohol use: No Drug use: Not Currently Types: Marijuana Comment: 1 gummy THC; only used once Physical Exam There were no vitals filed for this visit. There is no height or weight on file to calculate BMI. Last 3 Encounter Wt Readings: Date: Wt: 12/14/2023 86.2 kg (190 lb) 09/28/2023 84.8 kg (187 lb) 08/09/2023 89.8 kg (198 lb) General: He is a well-appearing adult in no distress HEENT: atraumatic, sclera clear Neck: no visible goiter Lungs: no respiratory distress Cardiac: no visible edema Extremities: no cyanosis or clubbing Neurologic: alert and oriented Skin: no rash Musculoskeletal: normal range of motion Mood is relaxed, affect is appropriate. Procedure / Imaging / Lab Data: Pertinent procedure/imaging/lab data was reviewed/discussed with the patient today: Recent Data from [facility] Related to TSH with reflex to Free T4 if abnormal Component 05/23/24 04/11/24 04/06/23 06/24/2201/16/21 02/06/20 Thyroid Stimulating Hormone 0.01 Low 2.90 -- -- -- -- TSH -- -- 2.68 2.00 4.63 High 1.53 Recent Data from [facility] Related to Thyroxine, Free Component 05/23/24 01/16/21 Thyroxine, Free 4.60 High -- Free T4 -- 0.95 Assessment / Impression & Plan: Arcadio Quiroz is a 34 year old adult who is seen in clinic today for hyperthyroidism. 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 Thyroiditis also possible. 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 Blanca Momin MD documented in this encounter [facility] 06-20-2024 Note HNO ID: [id number] Author: BLANCA MOMIN MD Service: ? Author Type: Physician Type: Progress Notes Filed: 06/20/2024 13:39 Note Text: Endocrinology Virtual Visit This is a virtual visit using [employer] Zoom Video Visit. It required patient-provider interaction for the medical decision making as documented below. I have communicated my name and active licensure. The patient's identity and physical location were verified at the time of this visit. 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 Clinical Care Team -Referring Provider for today's visit: No ref. provider found -Primary Care Provider: Danny Lea MD History of present of illness Patient presents with: Thyroid Problem Arcadio Quiroz is a 34 year old adult who presents today for evaluation of hyperthyroidism. Patient presents as a self referral. My final recommendations will be communicated back to the PCP and referring provider by way of a copy of today's office notes. Low TSH noted on labs with psychiatrist (lithium monitoring, being treated for bipolar disorder), rechecked with PCP and confirmed low and had a normal thyroid US with them (May 2024) Has been having new vomiting recently. Also has tardive dyskinesia Of note has history of Afib, takes metoprolol for this. 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 Switched medications about 3mo ago. Doesn't think they checked pituitary specifically. I have reviewed his medical, surgical, family and social history and have updated medication and allergy information in the computerized patient record. ROS: Answers submitted by the patient for this visit: Endocrine Review of Systems (Submitted on 06/20/2024) Fatigue: No Night sweats: No Recent unintentional weight change: No--- has lost weight intentionally, about 60# over 5mo. Stable over past few weeks. Skin Color Changes: No Post-Nasal Drip: No Thyroid Pain (lower neck): No Trouble Swallowing: No Vision Disturbance: No, no dry eyes Chest pain: No Leg Swelling: No Blood Clots?: No Leg Pain while walking?: No Difficulty Breathing?: No Heartburn: Yes Nausea: Yes Vomiting: Yes Diarrhea: No Constipation: Yes, chronic and worse recently Abdominal pain: Yes Bone Pain?: No Muscle aches: No Muscle weakness: No Joint pain or stiffness: No Headaches: Yes Dizziness: No Numbness?: No Urgency to Urinate?: No Increased Urination: No Slow or Small Urine Stream?: No Are your menstrual cycles regular?: No Are your menstrual cycles irregular?: Yes Have your menstrual cycles stopped?: Yes Flushing: No Hot Flashes?: No Increased Thirst: Yes Change in Body Hair?: No Cold Intolerance: No Heat Intolerance: No No palpitations No tremors. TD mainly involving mouth symptoms. Mood improved from prior No difficulty sleeping All other systems reviewed and found to be negative except those mentioned in HPI PAST MEDICAL HISTORY No date: Anxiety 05/2017: Atrial fibrillation (HCC) Comment: diagnosed age 23 2014: Bipolar 1 disorder (HCC) No date: History of seizures Comment: until age 15 No date: MTHFR mutation (methylenetetrahydrofolate reductase) No date: Panic attacks No date: PTSD (post-traumatic stress disorder) Comment: complex PAST SURGICAL HISTORY 2001: EXTENSIVE JAW SURGERY No date: PAST SURGICAL HISTORY OF Comment: sinus surgery for deviated septum No date: PAST SURGICAL HISTORY OF Comment: ECT treatments - 23 Current Outpatient Medications Medication Sig pantoprazole DR (PROTONIX) 40 mg tablet take 1 tablet by mouth every day famotidine (PEPCID) 20 mg tablet take 1 tablet by mouth twice a day lurasidone (LATUDA) 60 mg tab tablet paliperidone ER (INVEGA) 6 mg 24 hr tablet metoprolol succinate ER (TOPROL XL) 50 mg 24 hr tablet take 1 tablet by mouth every day plecanatide (TRULANCE) 3 mg tablet Take 1 tablet (3 mg) by mouth once daily. QUEtiapine (SEROQUEL) 300 mg tablet Take 300 mg by mouth daily at bedtime. lamoTRIgine (LAMICTAL) 100 mg tablet Take 1 tablet by mouth twice daily. lithium carbonate ER 300 mg CR tablet Take 2 tablets by mouth twice daily. metFORMIN (GLUCOPHAGE) 500 mg tablet Take 1 tablet by mouth twice daily with meals. QUEtiapine (SEROQUEL) 100 mg tablet Take 1 tablet by mouth daily at bedtime. clonazePAM (KLONOPIN) 1 mg t (more content not included)... [facility] 06-06-2024 Telephone encounter Note Called and left voicemail to schedule appointment requested through [employer]. June 06, 2024 2:49 PM Amy Rosa MA [facility] 06-06-2024 Miscellaneous Notes Called and left voicemail to schedule appointment requested through [employer]. June 06, 2024 2:49 PM Amy Rosa MA documented in this encounter [facility] 04-29-2024 Hospital Discharge instructions Patient Education 04/29/2024 08:53:22 Palpitations Heart Palpitations Palpitations are the feeling that your heart is beating hard, fast, or irregular. Some describe it as "pounding" or "skipped beats." Palpitations may occur in someone with heart disease, but can also occur in a healthy person. Heart-related causes: Arrhythmia (a change from the heart's normal rhythm) Heart valve disease Disease of the heart muscle Coronary artery disease High blood pressure Ved-jneuo-puiqoqb causes: Certain medicines such as asthma inhalers and decongestants Some herbal supplements, energy drinks and pills, and weight loss pills Illegal stimulant drugs such as cocaine, crank, methamphetamine, PCP, bath salts, or ecstasy Caffeine, alcohol, and tobacco Medical conditions such as thyroid disease, anemia, anxiety, and panic disorder Sometimes the cause can't be found. Home care Follow these home care tips: Don't use too much caffeine, alcohol, tobacco, or any stimulant drugs. Tell your doctor about any prescription or xnqz-kgm-kuwiyxx or herbal medicines you take. Follow-up care Follow up with your doctor, or as advised. Call 911 This is the fastest and safest way to get to the emergency department. The paramedics can also begin treatment on the way to the hospital, if needed. Don't wait until your symptoms are severe to call 911. These are reasons to call 911: Chest pain Shortness of breath Feeling lightheaded, faint, or dizzy Fainting or loss of consciousness Very irregular heartbeat Rapid heartbeat that makes you uncomfortable Slower than usual heart rate associated with symptoms Slower than usual heart rate Chest pain with weakness, dizziness, heavy sweating, nausea, or vomiting Extreme drowsiness or confusion Weakness of an arm or leg, or on 1 side of the face Difficulty with speech or vision When to seek medical advice Call your healthcare provider right away if you have palpitations and any of the following: Weakness Dizziness Lightheadedness Fainting [id number] [employer]. [address] [place] [address], [place] [address]. All rights reserved. This information is not intended as a substitute for professional medical care. Always follow your healthcare professional's instructions. 04/29/2024 08:53:14 Paraesthesias Paraesthesias Paraesthesia is a burning or prickling sensation that is sometimes felt in the hands, arms, legs or feet. It can also occur in other parts of the body. It can also feel like tingling or numbness, skin crawling, or itching. The feeling is not comfortable, but it is not painful. (The "pins and needles" feeling that happens when a foot or hand "falls asleep" is a temporary paraesthesia.) Paraesthesias that last or come and go may be caused by medical issues that need to be treated. These include stroke, a bulging disk pressing on a nerve, a trapped nerve, vitamin deficiencies, uncontrolled diabetes, alcohol abuse, or even certain medicines. Tests are often done. These tests may include blood tests, X-ray, CT (computerized tomography) scan, nerve conduction studies (NCS), or a muscle test (electromyography). Depending on the cause, treatment may include physical therapy. Home care Tell your healthcare provider about all medicines you take. This includes prescription and rcpu-cdp-gfdjols medicines, vitamins, and herbs. Ask if any of the medicines may be causing your problems. Don't make any changes to prescription medicines without talking to your healthcare provider first. You may be prescribed medicines to help relieve the tingling feeling or for pain. Take all medicines as directed. A numb hand or foot may be more prone to injury. To help protect it: oAlways use oven mitts. oTest water with an unaffected hand or foot. oUse caution when trimming nails. File sharp areas. oWear shoes that fit well to avoid pressure points, blisters, and ulcers. oInspect your hands and feet carefully (including the soles of your feet and between your toes) daily. If you see red areas, sores, or other problems, tell your healthcare provider. Follow-up care Follow up with your doctor, or as advised. You may need further testing or evaluation. When to seek medical advice Call your healthcare provider right away if any of the following occur: Numbness or weakness of the face, one arm, or one leg Slurred speech, confusion, trouble speaking, walking, or seeing Severe headache, fainting spell, dizziness, or seizure Chest, arm, neck, or upper back pain Loss of bladder or bowel control Open wound with redness, swelling, or pus [id number] [employer]. [address] [place] [address], [place] [address]. All rights reserved. This information is not intended as a substitute for professional medical care. Always follow your healthcare professional's instructions. Follow Up Care 04/29/2024 08:11:25 With:Follow up with primary care provider Address:Unknown When:2-4 days Comments:Schedule appointment for close follow-up if symptoms persist.Continue metoprolol along with your other routine home medications.Return to the ED if symptoms worsen. [facility] 04-29-2024 Note Discharge Instructions Thank you for allowing [facility] to assist you with your healthcare needs. The following is important discharge information regarding your hospital visit. What to Do Next Instructions from Your Care Team No qualifying data available. Post Acute Orders No qualifying data available. You Need to Schedule the Following Appointments Follow Up with Follow up with primary care provider When:Within 2-4 days Additional Information: Schedule appointment for close follow-up if symptoms persist. Continue metoprolol along with your other routine home medications. Return to the ED if symptoms worsen. Allergies Dilaudid Ketamine ketamine Medications Please ask your primary doctor or pharmacist before taking any other medication not listed, including over the counter drugs, herbal medications, vitamins and or supplements as they may interact with your home medications. What How Much When Instructions Last Dose Unchanged aspirin 325 Milligram by mouth Once Unchanged cetirizine (Zyrtec 10 mg oral tablet) 1 tab(s) by mouth Once a day Unchanged clonazePAM (KlonoPIN) If strength unknown select sentence below by mouth Unchanged desvenlafaxine by mouth Once a day Unchanged desvenlafaxine (Pristiq 50 mg oral tablet, extended release) 1 tab(s) by mouth Once a day Unchanged fluticasone nasal (Flonase 50 mcg/ inh nasal spray) 1 spray(s) each nostril Two (2) times a day Unchanged lamoTRIgine (LaMICtal 200 mg oral tablet) 1 tab(s) by mouth Once a day Unchanged lithium (lithium 300 mg oral tablet) 1 tab(s) by mouth Three (3) times a day Unchanged metoprolol (metoprolol succinate 50 mg oral tablet, extended release) 1 tab(s) by mouth Once a day Unchanged ondansetron (Zofran 4 mg oral tablet) See instructions 1 tab(s) PO q4-6h prn, As needed for As needed for nausea and vomiting Unchanged pantoprazole (Protonix 40 mg oral enteric coated tablet) 1 tab(s) by mouth Once a day Please take this list to your next doctor s visit. Bring all medications you take, including over the counter medications, herbals and other supplements with you to your doctor s visit. Patients and families are reminded to discard old lists and to update any records with all medication providers or retail pharmacies. Education Materials Heart Palpitations Palpitations are the feeling that your heart is beating hard, fast, or irregular. Some describe it as "pounding" or "skipped beats." Palpitations may occur in someone with heart disease, but can also occur in a healthy person. Heart-related causes: Arrhythmia (a change from the heart's normal rhythm) Heart valve disease Disease of the heart muscle Coronary artery disease High blood pressure Ana-uhbqk-lhgweyo causes: Certain medicines such as asthma inhalers and decongestants Some herbal supplements, energy drinks and pills, and weight loss pills Illegal stimulant drugs such as cocaine, crank, methamphetamine, PCP, bath salts, or ecstasy Caffeine, alcohol, and tobacco Medical conditions such as thyroid disease, anemia, anxiety, and panic disorder Sometimes the cause can't be found. Home care Follow these home care tips: Don't use too much caffeine, alcohol, tobacco, or any stimulant drugs. Tell your doctor about any prescription or nvkl-hps-ftgdake or herbal medicines you take. Follow-up care Follow up with your doctor, or as advised. Call 911 This is the fastest and safest way to get to the emergency department. The paramedics can also begin treatment on the way to the hospital, if needed. Don't wait until your symptoms are severe to call 911. These are reasons to call 911: Chest pain Shortness of breath Feeling lightheaded, faint, or dizzy Fainting or loss of consciousness Very irregular heartbeat Rapid heartbeat that makes you uncomfortable Slower than usual heart rate associated with symptoms Slower than usual heart rate Chest pain with weakness, dizziness, heavy sweating, nausea, or vomiting Extreme drowsiness or confusion Weakness of an arm or leg, or on 1 side of the face Difficulty with speech or vision When to seek medical advice Call your healthcare provider right away if you have palpitations and any of the following: Weakness Dizziness Lightheadedness Fainting [phone] [employer]. [address] [place] [address], [place] [address]. All rights reserved. This information is not intended as a substitute for professional medical care. Always follow your healthcare professional's instructions. Paraesthesias Paraesthesia is a burning or prickling sensation that is sometimes felt in the hands, arms, legs or feet. It can also occur in other parts of the body. It can also feel like tingling or numbness, skin crawling, or itching. The feeling is not comfortable, but it is not painful. (The "pins and needles" feeling that happens when a foot or hand "falls asleep" is a temporary paraesthesia.) Paraesthesias that last or come and go may be caused by medical issues that need to be treated. These include stroke, a bulging disk pressing on a nerve, a trapped nerve, vitamin deficiencies, uncontrolled diabetes, alcohol abuse, or even certain medicines. Tests are often done. These tests may include blood tests, X-ray, CT (computerized tomography) scan, nerve conduction studies (NCS), or a muscle test (electromyography). Depending on the cause, treatment may include physical therapy. Home care Tell your healthcare provider about all medicines you take. This includes prescription and phhs-lsf-limsgly medicines, vitamins, and herbs. Ask if any of the medicines may be causing your problems. Don't make any changes to prescription medicines without talking to your healthcare provider first. You may be prescribed medicines to help relieve the tingling feeling or for pain. Take all medicines as directed. A numb hand or foot may be more prone to injury. To help protect it: oAlways use oven mitts. oTest water with an unaffected hand or foot. oUse caution when trimming nails. File sharp areas. oWear shoes that fit well to avoid pressure points, blisters, and ulcers. oInspect your hands and feet carefully (including the soles of your feet and between your toes) daily. If you see red areas, sores, or other problems, tell your healthcare provider. Follow-up care Follow up with your doctor, or as advised. You may need further testing or evaluation. When to seek medical advice Call your healthcare provider right away if any of the following occur: Numbness or weakness of the face, one arm, or one leg Slurred speech, confusion, trouble speaking, walking, or seeing Severe headache, fainting spell, dizziness, or seizure Chest, arm, neck, or upper back pain Loss of bladder or bowel control Open wound with redness, swelling, or pus [phone] [employer]. [address] [place] [address]. All rights reserved. This information is not intended as a substitute for professional medical care. Always follow your healthcare professional's instructions. Additional Information VACCINATE! IT SAVES LIVES! Members of the community who have not yet received the COVID-19 vaccine and would like to receive it can visit one of [facility] vaccine clinics. There are many vaccine clinic locations within the [facility]. For locations and available times, please visit [email or web address] It is important to note that some COVID mobile vaccine clinics are held outdoors and may be canceled in rainy or stormy conditions. To learn more about pediatric vaccinations (ages 5-11), we invite you to visit the [facility] webpage. [email or web address]/p [email or web address]-Wuljanqinvp-Freq [email or web address]-[email or web address] To learn more about the COVID-19 vaccine, we invite you to visit the CDC website for a list of frequently asked questions. https://www.cdc.gov/coronavirus/ 2019-ncov/vaccines/faq.html [facility] Patient Portal Access Instructions: Stay connected with your healthcare team and access your personal medical information anytime with the [facility] Patient Portal. If you would like a full copy of your medical records please contact the [facility] Medical Records Department Wednesday through Wednesday between 8a.m. and 4:30p.m. Please follow the directions below to access the portal: 1.Access the email account you provided upon registration to the hospital.2.Look for an invitation email from [facility].3.Open the email and access the invitation link: Accept Invitation to [facility].Fill in the required ball to create your account. Sign into [email or web address] with your username and password that you created in the above steps to stay up to date. You can then view a summary of results, a summary of your visits, and the ability to download your summaries to your computer or send the information securely to a physician. Remember that your healthcare information is confidential, so carefully consider who you will allow to register on the [facility] Patient Portal for access to your information. You can also access the [facility] Patient Portal on the [employer]. Simply click on "Health Records" under "Health Data" and then click on the [employer] logo. HOW TO SAFELY DISPOSE OF PRESCRIPTION MEDICATIONS Please use one of the following methods to safely dispose of your unused medications. 1.Use a drug disposal kit: the drug disposal pouch allows you to safely discard your old and unused drugs. Ask your nurse to give you one when you are discharged.2.Visit a local take-back location: Many local pharmacies and police departments have programs that collect old and unwanted prescription drugs. Call your local pharmacy or go to http://WeTOWNS.[employer]/8W4Xw7f to find one close to you.3.Make use of household items: Use cat litter or old coffee grounds to dispose medications if other options are not available. Mix your drugs with these household products, seal them in an airtight container and throw it into the garbage. Call [facility]: [phone] to be sure your drugs can be disposed of in this way. Some medicines may require a different approach.4.Never flush your medications down the toilet. IF YOU HAVE BEEN PRESCRIBED AN OPIOIDS FOR PAIN If you have been prescribed an opioid (such as hydrocodone, oxycodone or morphine), it is critical to understand the possible side effects and risks of opioid pain medications. Even when taken as directed, opioids can have several side effects including: Tolerance, meaning you might need to take more of a medication for the same pain relief. Nausea, vomiting and/or constipation. Sleepiness, dizziness, dry mouth, confusion, depression or itching. Physical dependence, meaning you have withdrawal symptoms when a medication is stopped ? this can develop within a few days. KNOW YOUR RESPONSIBILITIES It is important to know exactly how much and how often to take the opioid pain medications you are prescribed. Never take opioids in higher amounts or more often than prescribed. Do not combine opioids with alcohol or other drugs that cause drowsiness, such as benzodiazepines, also known as benzos, including diazepam and alprazolam, muscle relaxants or sleep aids. Never sell or share prescription opioids. This is illegal. Store opioids in a secure place and out of reach of others (including children, family, friends and visitors). The last page(s) of this document has been signed and retained as a CHART COPY Signatures Patient Education Materials Palpitations Paraesthesias Medication Leaflets My discharge plan and instructions have been reviewed and explained to me and IGABRIELLA LILY M understand my current condition and have read and understand these discharge instructions. I have received a written copy of the plan/instructions. If I have questions, I am aware that I should contact my doctor. Patient/Rat Trapper Signature: Date/Time: Relationship to Patient: Witness Name/Signature: Date/Time: [facility] 04-29-2024 Note Sinus rhythm Abnormal T, consider ischemia, lateral leads Borderline ST elevation, inferior leads Electronic Signature: JUDY PATTERSON MD 04/29/2024 08:45:49 [facility] 04-17-2024 Hospital Discharge instructions Patient Education 04/16/2024 22:11:02 Constipation (Adult) Constipation (Adult) Constipation means that you have bowel movements that are less frequent than usual. Stools often become very hard and difficult to pass. Constipation is very common. At some point in life, it affects almost everyone. Since everyone's bowel habits are different, what is constipation to one person may not be to another. Your healthcare provider may do tests to diagnose constipation. It depends on what he or she finds when evaluating you. Symptoms of constipation include: Abdominal pain Bloating Vomiting Painful bowel movements Itching, swelling, bleeding, or pain around the anus Causes Constipation can have many causes. These include: Diet low in fiber Too much dairy Not drinking enough liquids Lack of exercise or physical activity (especially true for older adults) Changes in lifestyle or daily routine, including , aging, work, and travel Frequent use or misuse of laxatives Ignoring the urge to have a bowel movement or delaying it until later Medicines, such as certain prescription pain medicines, iron supplements, antacids, certain antidepressants, and calcium supplements Diseases like irritable bowel syndrome, bowel obstructions, stroke, diabetes, thyroid disease, Parkinson disease, hemorrhoids, and colon cancer Complications Potential complications of constipation can include: Hemorrhoids Rectal bleeding from hemorrhoids or anal fissures (skin tears) Hernias Dependency on laxatives Chronic constipation Fecal impaction, a severe form of constipation in which a large amount of hard stool is in your rectum that you can't pass Bowel obstruction or perforation Home care All treatment should be done after talking with your healthcare provider. This is especially true if you have another medical problems, are taking prescription medicines, or are an older adult. Treatment most often involves lifestyle changes. You may also need medicines. Your healthcare provider will tell you which will work best for you. Follow the advice below to help avoid this problem in the future. Lifestyle changes These lifestyle changes can help prevent constipation: Diet. Eat a high-fiber diet, with fresh fruit and vegetables, and reduce dairy intake, meats, and processed foods Fluids. It's important to get enough fluids each day. Drink plenty of water when you eat more fiber. If you are on diet that limits the amount of fluid you can have, talk about this with your healthcare provider. Regular exercise. Check with your healthcare provider first. Medicines Take any medicines as directed. Some laxatives are safe to use only every now and then. Others can be taken on a regular basis. While laxatives don't cause bowel dependence, they are treating the symptoms. So your constipation may return if you don't make other changes. Talk with your healthcare provider or pharmacist if you have questions. Prescription pain medicines can cause constipation. If you are taking this kind of medicine, ask your healthcare provider if you should also take a stool softener. Medicines you may take to treat constipation include: Fiber supplements Stool softeners Laxatives Enemas Rectal suppositories Follow-up care Follow up with your healthcare provider if symptoms don't get better in the next few days. You may need to have more tests or see a specialist. Call 911 Call 911 if any of these occur: Trouble breathing Stiff, rigid abdomen that is severely painful to touch Confusion Fainting or loss of consciousness Rapid heart rate Chest pain When to seek medical advice Call your healthcare provider right away if any of these occur: Fever of 100.4 F (38 C) or higher, or as directed by your healthcare provider Failure to resume normal bowel movements Pain in your abdomen or back gets worse Nausea or vomiting Swelling in your abdomen Blood in the stool Black, tarry stool Involuntary weight loss Weakness [phone] [employer]. [address] [place] [address], [place] [address]. All rights reserved. This information is not intended as a substitute for professional medical care. Always follow your healthcare professional's instructions. Follow Up Care 04/16/2024 21:31:43 With:TIMMY TRIPATHI Address: [address] [place] [id number] [id number] (1) When:2-4 days Comments:Use magnesium citrate as prescribed, you may use daily suppositories for next 3 days, after the mag citrate I would do MiraLAX 1 capful daily for the next 5 to 7 days, return if any worsening or concerning symptoms such as repetitive vomiting, severe abdominal pain or fever. [facility] 04-16-2024 Note Discharge Instructions Thank you for allowing [facility] to assist you with your healthcare needs. The following is important discharge information regarding your hospital visit. Diagnosis from Today's Visit Constipation What to Do Next Instructions from Your Care Team No qualifying data available. Post Acute Orders No qualifying data available. You Need to Schedule the Following Appointments Follow Up with TIMMY TRIPATHI When:Within 2-4 days Where:[address] [place] [id number] (1) Additional Information: Use magnesium citrate as prescribed, you may use daily suppositories for next 3 days, after the mag citrate I would do MiraLAX 1 capful daily for the next 5 to 7 days, return if any worsening or concerning symptoms such as repetitive vomiting, severe abdominal pain or fever. Allergies NKA Medications Please ask your primary doctor or pharmacist before taking any other medication not listed, including over the counter drugs, herbal medications, vitamins and or supplements as they may interact with your home medications. What How Much When Instructions Last Dose New bisacodyl (Dulcolax Laxative 10 mg rectal suppository) 1 suppository(ies) in the rectum Every day Duration: 3 Days Printed Prescription New magnesium citrate (magnesium citrate 1.745 g/ 30 mL oral liquid) 300 Milliliter by mouth Every day Duration: 1 Days Printed Prescription Unchanged aspirin 325 Milligram by mouth Once Unchanged cetirizine (Zyrtec 10 mg oral tablet) 1 tab(s) by mouth Once a day Unchanged clonazePAM (KlonoPIN) If strength unknown select sentence below by mouth Unchanged desvenlafaxine by mouth Once a day Unchanged desvenlafaxine (Pristiq 50 mg oral tablet, extended release) 1 tab(s) by mouth Once a day Unchanged fluticasone nasal (Flonase 50 mcg/ inh nasal spray) 1 spray(s) each nostril Two (2) times a day Unchanged lamoTRIgine (LaMICtal 200 mg oral tablet) 1 tab(s) by mouth Once a day Unchanged lithium (lithium 300 mg oral tablet) 1 tab(s) by mouth Three (3) times a day Unchanged metoprolol (metoprolol succinate 50 mg oral tablet, extended release) 1 tab(s) by mouth Once a day Unchanged ondansetron (Zofran 4 mg oral tablet) See instructions 1 tab(s) PO q4-6h prn, As needed for As needed for nausea and vomiting Unchanged pantoprazole (Protonix 40 mg oral enteric coated tablet) 1 tab(s) by mouth Once a day Please take this list to your next doctor s visit. Bring all medications you take, including over the counter medications, herbals and other supplements with you to your doctor s visit. Patients and families are reminded to discard old lists and to update any records with all medication providers or retail pharmacies. Education Materials Constipation (Adult) Constipation means that you have bowel movements that are less frequent than usual. Stools often become very hard and difficult to pass. Constipation is very common. At some point in life, it affects almost everyone. Since everyone's bowel habits are different, what is constipation to one person may not be to another. Your healthcare provider may do tests to diagnose constipation. It depends on what he or she finds when evaluating you. Symptoms of constipation include: Abdominal pain Bloating Vomiting Painful bowel movements Itching, swelling, bleeding, or pain around the anus Causes Constipation can have many causes. These include: Diet low in fiber Too much dairy Not drinking enough liquids Lack of exercise or physical activity (especially true for older adults) Changes in lifestyle or daily routine, including , aging, work, and travel Frequent use or misuse of laxatives Ignoring the urge to have a bowel movement or delaying it until later Medicines, such as certain prescription pain medicines, iron supplements, antacids, certain antidepressants, and calcium supplements Diseases like irritable bowel syndrome, bowel obstructions, stroke, diabetes, thyroid disease, Parkinson disease, hemorrhoids, and colon cancer Complications Potential complications of constipation can include: Hemorrhoids Rectal bleeding from hemorrhoids or anal fissures (skin tears) Hernias Dependency on laxatives Chronic constipation Fecal impaction, a severe form of constipation in which a large amount of hard stool is in your rectum that you can't pass Bowel obstruction or perforation Home care All treatment should be done after talking with your healthcare provider. This is especially true if you have another medical problems, are taking prescription medicines, or are an older adult. Treatment most often involves lifestyle changes. You may also need medicines. Your healthcare provider will tell you which will work best for you. Follow the advice below to help avoid this problem in the future. Lifestyle changes These lifestyle changes can help prevent constipation: Diet. Eat a high-fiber diet, with fresh fruit and vegetables, and reduce dairy intake, meats, and processed foods Fluids. It's important to get enough fluids each day. Drink plenty of water when you eat more fiber. If you are on diet that limits the amount of fluid you can have, talk about this with your healthcare provider. Regular exercise. Check with your healthcare provider first. Medicines Take any medicines as directed. Some laxatives are safe to use only every now and then. Others can be taken on a regular basis. While laxatives don't cause bowel dependence, they are treating the symptoms. So your constipation may return if you don't make other changes. Talk with your healthcare provider or pharmacist if you have questions. Prescription pain medicines can cause constipation. If you are taking this kind of medicine, ask your healthcare provider if you should also take a stool softener. Medicines you may take to treat constipation include: Fiber supplements Stool softeners Laxatives Enemas Rectal suppositories Follow-up care Follow up with your healthcare provider if symptoms don't get better in the next few days. You may need to have more tests or see a specialist. Call 911 Call 911 if any of these occur: Trouble breathing Stiff, rigid abdomen that is severely painful to touch Confusion Fainting or loss of consciousness Rapid heart rate Chest pain When to seek medical advice Call your healthcare provider right away if any of these occur: Fever of 100.4 F (38 C) or higher, or as directed by your healthcare provider Failure to resume normal bowel movements Pain in your abdomen or back gets worse Nausea or vomiting Swelling in your abdomen Blood in the stool Black, tarry stool Involuntary weight loss Weakness [phone] [employer]. [address] [place] [address]. All rights reserved. This information is not intended as a substitute for professional medical care. Always follow your healthcare professional's instructions. Additional Information VACCINATE! IT SAVES LIVES! Members of the community who have not yet received the COVID-19 vaccine and would like to receive it can visit one of [facility] vaccine clinics. There are many vaccine clinic locations within the [facility]. For locations and available times, please visit [email or web address] It is important to note that some COVID mobile vaccine clinics are held outdoors and may be canceled in rainy or stormy conditions. To learn more about pediatric vaccinations (ages 5-11), we invite you to visit the [facility] webpage. [email or web address].org/p ages/7425-Xdboh-Prrzyivefxv-Freq [email or web address]-[email or web address].html To learn more about the COVID-19 vaccine, we invite you to visit the CDC website for a list of frequently asked questions. https://www.cdc.gov/coronavirus/ 2019-ncov/vaccines/faq.html [facility] Patient Portal Access Instructions: Stay connected with your healthcare team and access your personal medical information anytime with the [facility] [employer] Patient Portal. If you would like a full copy of your medical records please contact the [facility] Medical Records Department Wednesday through Wednesday between 8a.m. and 4:30p.m. Please follow the directions below to access the portal: 1.Access the email account you provided upon registration to the [facility].2.Look for an invitation email from [facility].3.Open the email and access the invitation link: Accept Invitation to [facility]4.Fill in the required ball to create your account. Sign into [email or web address] with your username and password that you created in the above steps to stay up to date. You can then view a summary of results, a summary of your visits, and the ability to download your summaries to your computer or send the information securely to a physician. Remember that your healthcare information is confidential, so carefully consider who you will allow to register on the [facility] Patient Portal for access to your information. You can also access the [facility] Patient Portal on the [facility] [employer]adi. Simply click on "Health Records" under "Health Data" and then click on the [facility] logo. HOW TO SAFELY DISPOSE OF PRESCRIPTION MEDICATIONS Please use one of the following methods to safely dispose of your unused medications. 1.Use a drug disposal kit: the drug disposal pouch allows you to safely discard your old and unused drugs. Ask your nurse to give you one when you are discharged.2.Visit a local take-back location: Many local pharmacies and police departments have programs that collect old and unwanted prescription drugs. Call your local pharmacy or go to http://WeTOWNS.[employer]/9Z9Af6b to find one close to you.3.Make use of household items: Use cat litter or old coffee grounds to dispose medications if other options are not available. Mix your drugs with these household products, seal them in an airtight container and throw it into the garbage. Call [facility]: [phone] to be sure your drugs can be disposed of in this way. Some medicines may require a different approach.4.Never flush your medications down the toilet. IF YOU HAVE BEEN PRESCRIBED AN OPIOIDS FOR PAIN If you have been prescribed an opioid (such as hydrocodone, oxycodone or morphine), it is critical to understand the possible side effects and risks of opioid pain medications. Even when taken as directed, opioids can have several side effects including: Tolerance, meaning you might need to take more of a medication for the same pain relief. Nausea, vomiting and/or constipation. Sleepiness, dizziness, dry mouth, confusion, depression or itching. Physical dependence, meaning you have withdrawal symptoms when a medication is stopped ? this can develop within a few days. KNOW YOUR RESPONSIBILITIES It is important to know exactly how much and how often to take the opioid pain medications you are prescribed. Never take opioids in higher amounts or more often than prescribed. Do not combine opioids with alcohol or other drugs that cause drowsiness, such as benzodiazepines, also known as benzos, including diazepam and alprazolam, muscle relaxants or sleep aids. Never sell or share prescription opioids. This is illegal. Store opioids in a secure place and out of reach of others (including children, family, friends and visitors). The last page(s) of this document has been signed and retained as a CHART COPY Signatures Patient Education Materials Constipation (Adult) Medication Leaflets My discharge plan and instructions have been reviewed and explained to me and IGABRIELLA KATHERINE M understand my current condition and have read and understand these discharge instructions. I have received a written copy of the plan/instructions. If I have questions, I am aware that I should contact my doctor. Patient/Rat Trapper Signature: Date/Time: Relationship to Patient: Witness Name/Signature: Date/Time: [facility] 12-29-2023 Miscellaneous Notes First call made to scheduled GES & Follow-Up, lvm. Arabella Holloway December 29, 2023 4:27 PM Second call made to schedule GES & 2-week follow-up, lvm. Reminder to schedule sent to pt via [employer]. Arabella Holloway December 30, 2023 10:44 AM Please book for ges and f/u 2 wks after -Desiree William PA-C documented in this encounter [facility] 12-29-2023 History of Present illness Narrative GASTROENTEROLOGY PROGRESS NOTE VIRTUAL FOLLOW UP Patient consented to this visit being virtual and understands there are limitations inherent in this type of visit. I have communicated my name and active licensure. The patient's identity and physical location were verified at the time of this visit. 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 This is a virtual visit using [employer] Zoom Video Visit. It required patient-provider interaction for the medical decision making as documented below. HPI: I saw Arcadio Quiroz today for a follow up after EGD. EGD went well. No HH noted on EGD. Pantoprazole 40 mg pt still takes daily. Pt takes famotidine daily. This does help w/ the burning sensation. Pt still is having regurgitation and burping through out the day. Feels like he is aspirating. He still experiences dysphagia but says he does not always notice when it happens. Appetite is good. BM- daily. Soft stool. Formed, describes as a string. Notes change in psychiatric medication. Notes BRBPR intermittently. He has not used anything for his BM. Has used hemorrhoid cream which helps with rectal pain. Does not use the cream for the bleeding. PAST MEDICAL HISTORY Diagnosis Date Anxiety Atrial fibrillation (HCC) 05/2017 diagnosed age 23 Bipolar 1 disorder (HCC) 2014 History of seizures until age 15 MTHFR mutation (methylenetetrahydrofolate reductase) Panic attacks PTSD (post-traumatic stress disorder) complex PAST SURGICAL HISTORY Procedure Laterality Date EXTENSIVE JAW SURGERY 2001 PAST SURGICAL HISTORY OF sinus surgery for deviated septum PAST SURGICAL HISTORY OF ECT treatments - 23 Social History Tobacco Use Smoking status: Never Smokeless tobacco: Never Vaping Use Vaping Use: Never used Substance Use Topics Alcohol use: No Drug use: Not Currently Types: Marijuana Comment: 1 gummy THC; only used once FAMILY HISTORY Problem Relation Age of Onset Hypertension Mother other (pulmonary embolism) Mother PE x 9 other (MTHFR) Mother other (lupus) Mother other (essential tremor) Mother other (mirgraines) Mother Psoriasis Brother other (crohns) Brother other (rheumatoid arthritis) Brother other (atrial fibrillation) Maternal Grandfather newly diagnosed 2017 at age 90 Psoriasis Brother Psoriasis Brother Psoriasis Brother Current Outpatient Medications Medication Sig lurasidone (LATUDA) 60 mg tab tablet paliperidone ER (INVEGA) 6 mg 24 hr tablet metoprolol succinate ER (TOPROL XL) 50 mg 24 hr tablet take 1 tablet by mouth every day famotidine (PEPCID) 20 mg tablet TAKE 1 TABLET BY MOUTH TWICE A DAY plecanatide (TRULANCE) 3 mg tablet Take 1 tablet (3 mg) by mouth once daily. QUEtiapine (SEROQUEL) 300 mg tablet Take 300 mg by mouth daily at bedtime. ARIPiprazole (ABILIFY) 10 mg tablet Take 1 tablet by mouth once daily. lamoTRIgine (LAMICTAL) 100 mg tablet Take 1 tablet by mouth twice daily. lithium carbonate ER 300 mg CR tablet Take 2 tablets by mouth twice daily. metFORMIN (GLUCOPHAGE) 500 mg tablet Take 1 tablet by mouth twice daily with meals. pantoprazole DR (PROTONIX) 40 mg tablet Take 1 tablet by mouth once daily. QUEtiapine (SEROQUEL) 100 mg tablet Take 1 tablet by mouth daily at bedtime. clonazePAM (KLONOPIN) 1 mg tablet May take 0.5 tablets by mouth once daily as needed for anxiety. May also take 1 tablet at bedtime as needed for anxiety. pregabalin (LYRICA) 25 mg capsule Take 25 mg by mouth once daily. testosterone (ANDROGEL) 50 mg / 5 g (1%) Apply 1 Packet as directed once daily. topiramate (TOPAMAX) 100 mg tablet Take 100 mg by mouth daily at bedtime. amphetamine-dextroamphetamine XR (ADDERALL XR) 20 mg capsule Take 40 mg by mouth once daily. aspirin, enteric coated (ASPIRIN, ENTERIC COATED) 81 mg EC tablet Take 81 mg by mouth once daily. No current facility-administered medications for this visit. ALLERGIES Allergen Reactions Methylphenidate Mental Status Change Dilaudid [[employer]* Vomiting Ketamine Vomiting PHYSICAL EXAMINATION: No physical exam was performed due to this visit being performed virtually to decrease exposure to Covid 19. Patient was awake, alert, oriented, was able to speak clearly and answer questions. Patient did not seem to be in any distress. Patient appeared comfortable and was sitting and moving around comfortably. LABS: Hemoglobin (g/dL) Date Value 09/28/2023 12.3 01/27/2016 13.3 HGB (g/dL) Date Value 12/08/2018 12.5 Hematocrit (%) Date Value 09/28/2023 37.8 12/08/2018 38.1 WBC Date Value 09/28/2023 9.50 k/uL 12/08/2018 10.17 thou/cmm Lab Results Component Value Date TBILI 0.2 09/28/2023 CREAT 0.93 09/28/2023 ALB 4.8 09/28/2023 ALKPHOS 117 (H) 09/28/2023 AST 13 (L) 09/28/2023 ALT 9 (L) 09/28/2023 TPROT 7.2 09/28/2023 EGD 12/14/23 Impression: - Z-line regular, 35 cm from the incisors. - Normal esophagus. - Normal stomach. - Normal examined duodenum. - No specimens collected. Recommendation: - Resume previous diet. - Continue present medications Plan ASSESSMENT AND PLAN: This is a 33 year old transgender male who presents for GERD. EGD did not show evidence of a hiatal hernia. His EGD was normal no biopsies were taken. He is still taking pantoprazole 40 mg daily and famotidine 20 mg daily. He is still experiencing regurgitation and burping throughout the day. Bowel movements have improved and they are daily. He describes soft formed stool. Notes recently had a change in psychiatric medication. Notes bright red blood per rectum intermittently. F/u 2 wks after GES ASSESSMENT/PLAN: 1. Gastroesophageal reflux disease, unspecified whether esophagitis present - ICD9: 530.81, ICD10: K21.9 (primary diagnosis) - pepcid 20 mg BID - if no relief will consider inc pantoprazole to BID - PANTOPRAZOLE 40 MG TABLET,DELAYED RELEASE 2. BRBPR (bright red blood per rectum) - ICD9: 569.3, ICD10: K62.5 - use otc hemorrhoid cream prn - plan to cont to monitor 3. Dyspepsia - ICD9: 536.8, ICD10: R10.13 - given persistent regurgitation I would like to r/o gastroparesis - NM GASTRIC EMPTYING SOLID Desiree William PA-C I spent a total of 22 minutes on the date of the service which included preparing to see the patient, [id number] patient care, completing clinical documentation, counseling and educating the patient/family/caregiver, ordering medications, tests, or procedures, and communicating results to the patient/family/caregiver. documented in this encounter [facility] 10-04-2023 Miscellaneous Notes Call from patient requesting refill. Requested Prescriptions Pending Prescriptions Disp Refills metoprolol succinate ER (TOPROL XL) 50 mg 24 hr tablet [Pharmacy Med Name: METOPROLOL SUCC ER 50 MG TAB] 90 tablet 3 Sig: take 1 tablet by mouth every day Patient last seen 01/19/2022 Josefina Jones documented in this encounter [facility] 09-28-2023 Miscellaneous Notes BEHAVIORAL HEALTH INTAKE NOTE SERVICE DATE: 09/28/23 SERVICE TIME: 1700 Nature of the crisis: Suicidal ideation with plan and intent Presenting Problem: Lily Quiroz who goes by "Arcadio" is a female to male transgender 33 year old adult with history of Bipolar 1, PTSD, Panic disorder, ADHD and Borderline Personality Disorder brought in to [facility] from Home by self for suicidal ideation to shoot self with firearm, has intent. "My doctor wanted me to come or he was going to pink slip me." Active plan to obtain a firearm from local outdoor sporting goods store and shoot self, notes that they have been looking at firearms in the store's online catalog. Last psych admission was 07/15/2023 at [facility] on 6100 for suicidal ideation to overdose. Patient has been attending [facility] through , endorsing frustration that they have not been able to graduate from the program yet. A+Ox3. Casually groomed and kempt. Superficial, scabbed over self inflicted cuts on R thigh - no drainage, no sign of infection. Organized, linear and coherent in thought + speech. Demonstrates ability for abstract thought. Good fund of knowledge. Notes worsening depressive features over the past month: anhedonia, feeling worthless, hopeless, helpless, like a burden to others, intensifying daily thoughts of suicide, rating her depression a 9 of 10. Anxiety rated 5 of 10 when in her home, but has been having uncontrollable worrying, racing thinking, increased feelings of rage, irritability and "snapping at people more easily", poor focus, increased tension, decreased ability to function, poor interrupted sleep I sleep 8 hours, but wake hourly." Patient states they are not able to utilize healthy coping mechanisms, "I mostly just scroll online through Reddit." Discussed case with Dr. Stockton, Dr. Chong, and x ray control equipment repairer psychiatrist Dr. Haas who agree patient currently requires inpatient psychiatric admission for further evaluation and treatment secondary to intensifying depressive features - suicidal ideation with plan and intent. Sought bed on 6100 however, none available at this time. Plan to send out referrals to outside facilities. SOCIAL HISTORY: Social History Tobacco Use Smoking status: Never Smokeless tobacco: Never Vaping Use Vaping Use: Never used Substance Use Topics Alcohol use: No Drug use: Yes Types: Marijuana Comment: 1 gummy THC; only used once MEDICATIONS: Order #: [id number] Order #: [id number] Order #: [id number] Order #: [id number] Order #: [id number] Order #: [id number] Order #: [id number] Order #: [id number] Order #: [id number] Order #: [id number] Order #: [id number] Order #: [id number] Order #: [id number] Order #: [id number] Order #: [id number] Order #: [id number] No medication comments found. MEDICATION COMPLIANCE: Yes SOCIAL INFORMATION: Living Arrangements: Home Provider Stated Diagnosis: Bipolar Disorder Satisfaction With Relationships: "Fine" "bro and I are close" Education Level: High School Diploma/GED Employment Status: Disabled Gender Specific Test: Negative Sex at Time of : Female Patient Identified Gender: Male Preferred Pronoun: They/Them/Their OBSERVATIONS CHEMICAL DEPENDENCY Substance Use: No Referral for Substance Abuse Services: No Toxicology Screen Results: Negative ACTIVITY Activities of Daily Living: Independent Mobility: No Assistance Continence: Continent MENTAL HEALTH SERVICES: SAFE-T Protocol with C-SSRS Step 1: Identify Risk Factors C-SSRS Suicidal Ideation Severity Month 1. Wish to be Yes 2. Current suicidal thoughts Yes 3. Suicidal thoughts w/ Method Yes 4. Suicidal Intent without Specific Plan Yes 5. Intent with Plan Yes C-SSRS Suicidal Behavior: Lifetime Yes Past 3 Months No Current and Past Psychiatric Dx: Mood Disorder, PTSD, ADHD, Cluster B Personality Disorders or Traits (i.e. Borderline, Antisocial, Histrionic & Narcissistic Presenting Symptoms: Impulsivity, Hopelessness or Despair, Anxiety and/or Panic, Insomnia, Anhedonia Family History: Change in treatment: Hopeless or Dissatisfied with Provider or Treatment Access to lethal methods: denies access, is looking into purchasing one Step 2: Identify Protective Factors (Protective factors may not counteract significant acute suicide risk factors) Internal: (patient unable to identify) External:Positive Therapeutic Relationships (positive relation with brother) Step 3: Specific questioning about Thoughts, Plans, and Suicidal Intent - (see Step 1 for Ideation Severity and Behavior) C-SSRS Suicidal Ideation Intensity Month Frequency Many times each day Duration 4-8 hours/most of day Controllability Does not attempt to control thoughts Deterrents Uncertain that deterrents stopped you Reasons for Ideation Mostly to end or stop the pain (you couldn't go on living with the pain or how you were feeling) Total Score Suicidal Ideation Intensity Total Score: 16 Step 4: Guidelines to Determine Level of Risk and Develop Interventions to LOWER Risk Level RISK STRATIFICATION TRIAGE High Suicide Risk Moderate Suicide Risk X Low Suicide Risk INTERVENTIONS Sources of Information: Patient, Epic, ED Staff Patient Assessed by Intake via: Face to Face Coordination of care with: ED RN, ED LIP, Internal Behavioral Health Staff Interventions: None, Medications Medications: Oral Goals/Objectives: Admission to inpatient psychiatric unit for further evaluation and treatment of symptoms of illness, Admission to inpatient psychiatric unit for safety of patient and others DISPOSITION & PLAN: Patient Assessed by Intake via: Face to Face Patient stated goals: Goals: To feel safe, To have reduction in symptoms, To improve my functional status, To return home to life as it was Coordination of Care with: ED RN, ED LIP, Internal Behavioral Health Staff Assessment/Impressions: Inpatient Need Plan: Consult with Psychiatry on-call, ED Psych consult, or other provider Goals/Objectives: Admission to inpatient psychiatric unit for further evaluation and treatment of symptoms of illness, Admission to inpatient psychiatric unit for safety of patient and others Total time spent (minutes) in Supportive Care for this patient: MEDICAL CLEARANCE Initial Date: 09/28/23 Initial Time: 1443 Final/Accepted Date: 09/28/23 Final/Accepted Time: 182 Reviewed medical history with physician: Yes Reviewed abnormal labs with physician: Yes Discussed case with Dr. Waddell who states that Lily Quiroz is a candidate for admission. Provider Stated Diagnosis: Bipolar Disorder Admitting Provider: Ella Sampson Admission Status: Full Admit Unit: [facility] Bed#: 2600 unit Report Given To: Kimberly SALAS [phone] Report Date: 09/28/23 Report Time: 1901 Admission Type: Medical Certificate SIGNATURE: Quinton Sequeira RN PATIENT NAME: Lily Quiroz DATE: September 28, 2023 TIME: 6:12 PM documented in this encounter [facility] 08-10-2023 Miscellaneous Notes Surgery Checklist Type: egd Admission Type: outpatient Anesthesia: MAC Date: 12/14/2023 Arrival Time: 1:00pm Surgery Time: 11:30am Location: [facility] Given egd prep instruction at the time of appointment Shayna Alatorre documented in this encounter [facility] 07-16-2023 History of Present illness Narrative Pt presented on time. He went to the hospital and was kept for 1 day. He was given a number for the IOP at [facility]. It's virtual and so he might do the [facility] one. 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 He feels like he can't participate in the discord which is causing distress. Lately he's had a lot of thoughts about suicide last week but "they're tapering down". He self harmed twice since the hospital on his leg. In the hospital they stopped the lyrica, reduced clonazepam to 1mg and increased quetiapine to 200mg. [id number] [place] Work Phone: 07-15-2023 History of Past i llness Narrative Problem Noted Date Diagnosed Date Resolved Date Depression, acute 07/15/2023 07/16/2023 documented as of this encounter (statuses as of 08/10/2023) [address]31-2023 History of Past illness Narrative* Problem Noted Date Diagnosed Date Resolved Date Depression, acute 07/15/2023 07/16/2023 documented as of this encounter (statuses as of 09/21/2023) [address]-2023 History of Past illness Narrative* Problem Noted Date Diagnosed Date Resolved Date Depression, acute 07/15/2023 07/16/2023 documented as of this encounter (statuses as of 10/02/2023) [facility] History of Past illness Narrative* Problem Noted Date Diagnosed Date Resolved Date Depression, acute 07/15/2023 07/16/2023 documented as of this encounter (statuses as of 10/04/2023) [address]31-2023 History of Past illness Narrative* Problem Noted Date Diagnosed Date Resolved Date Depression, acute 07/15/2023 07/16/2023 documented as of this encounter (statuses as of 12/29/2023) [address]-2023 History of Past illness Narrative* Problem Noted Date Diagnosed Date Resolved Date Depression, acute 07/15/2023 07/16/2023 documented as of this encounter (statuses as of 12/29/2023) [address]23 History of Past illness Narrative* Problem Noted Date Diagnosed Date Resolved Date Depression, acute 07/15/2023 07/16/2023 documented as of this encounter (statuses as of 12/30/2023) [place] [address]-10-2023 History of Present illness NarrativePt presented on time. Pt took 10 clonazepam on 06/24 because he didn't want to be awake. Denies having SI. Denies thoughts of sleeping "forever". His mood is poor now. 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 Pt is tearful because these are his only friends. This happened last night. He doesn't know what the fallout will be. Some angry things were said so far. A userabove his level is positive. Pt offered to step down. He's anxious about what's going to happen. He's having SI with thoughts of overdosing. Recommended pt go to ED for evaluation and possible admission. Advised that anxiety has been unmanageable and causing much of these symptoms and a hospital stay might help with stability. Spoke w/ pt's mother and advised of event on 06/24 as well as current symptoms. Recommended taking pt to ED for evaluation and possible admission. Expressed concern for ptsafety based on above. Advised if not admitted then pt should start IOP again. Discussed options including [facility], [facility] or [facility]. Denies firearms in home. Reminded that pt's meds should be locked up. Father agreed to take pt to ED. Will follow up in 1 week.[facility] [address] [place] [address] Work Phone: 1(897) 167-855006-15-2023 History of Present illness NarrativePt presented on time. Mood "up and down" since last session. The anxiety is a little better. He hassome bouts of depression but he has fewer bad days. He had 1 NSSI event last week of cutting on hisleg. Denies SI since last session. Discussed coming out to his parents as the primary source of mood changes. Denies plan or intent. Sleeping well. Appetite good. Taking medicine as prescribed. He's wearing a binder when he goes out. 'I can't stand my chest". Pt asked about the steps for top surgery. Encouraged pt to work on DBT skills w/ therapist to eliminate NSSI behavior for when he might pursue top surgery. [facility] [place] Work Phone: 1(235) 986-973604-21-2023 NoteDiagnoses/Problems Assessed Medication management (V58.69) (Z79.899) ADHD (attention deficit hyperactivity disorder), predominantly hyperactive impulsive type (314.01) (F90.1) Bipolar 1 disorder (296.7) (F31.9) Complex posttraumatic stress disorder (309.81) (F43.10) Generalized anxiety disorder with panic attacks (300.02,300.01) (F41.1,F41.0) Orders ADHD (attention deficit hyperactivity disorder), predominantly hyperactive impulsive type Renew: Amphetamine-Dextroamphet ER 20 MG Oral Capsule Extended Release 24 Hour; TAKE 2 CAPSULES DAILY Bipolar 1 disorder Renew: Topiramate 25 MG Oral Tablet; TAKE 3 TABLET Bedtime Medication management Comprehensive Metabolic Panel; Status:Active; Requested for:[id number]; Lipid Panel; Status:Active; Requested for:[id number]; Athalia Level, Serum; Status:Active; Requested for:[id number]; TSH WITH REFLEX TO FREE T4 IF ABNORMAL; Status:Active; Requested for:[id number]; Provider Impressions A 32yo nonbinary individual domiciled w/ family, on disability w/ bipolar d/o, complex PTSD, DIONE and cluster B traits presents for follow up. Patient is moderate acute and moderate chronic risk of suicide. Static risk factors include , gender dysphoria. Dynamic risk factors include above psychiatric symptoms which we are addressing with medication. Protective factors include no drug abuse, rational thinking intact, good social support, help seeking, no SI today, hopeful, future oriented and no guns at home or access to meds. Bipolar d/o - c/w lithium ER 600mg BID(f/u level), c/w lamotrigine 100mg BID, quetiapine 100mg qhs,topiramate 75mg daily PTSD/panic - c/w clonazepam 1mg daily PRN panic,c/w med ed, psycho ed, supportive psychotherapy, f/u 4 weeks ADHD - adderall XR 20mg BID Insomnia - quetiapine Pt was educated that if they feel a danger to themselves or others to go to the nearest emergency room or call [phone]. Chief Complaint An interactive audio and video telecommunication system which permits real time communications between the patient (at the originating site) and provider (at the distant site) was utilized to providethis telehealth service. Bipolar d/o History of Present Illness Pt presented on time. Mood "good" since last session. He had a few down days but "mostly normal". He was able to restart the topiramate and he feels it's helping. He joined a gym and adding a facial routine that's new. Anxiety has been "a little high". He feels this usually happens in the spring. Focus has been "really good". Denies SI/NSSI. Sleeping well. Appetite good. Taking medicine as prescribed. He likes his new therapist. They met 3 times so far. I have personally reviewed the OARRS report for LILY QUIROZ. I have considered the risks of abuse, dependence, addiction and diversion. I have the following concerns: none. Is the patient prescribed a combination of a benzodiazepine and opioid? No. Last urine drug screening date/ordered today: 02/10/2023 Controlled Substance Agreement: I have printed this form and reviewed each line item with the patient and the patient has verbalized understanding. Date of the last Controlled Substance Agreement: 01/29/2023 BENZODIAZEPINES What is the patient?s goal of therapy? anxiety tx. Is this being achieved with current treatment? yes. Activities of Daily Living: Yes, it is my opinion that this patient is benefitting from benzodiazepine therapy. Physical functioning: Same Family relationships: Same Social relationships: Same Mood: Same Sleep patterns: Same Overall functioning: Same STIMULANTS What is the patient?s goal of therapy? adhd tx. Is this being achieved with current treatment? yes. Activities of Daily Living: Yes, it is my opinion that this patient is benefitting from stimulant therapy . Physical functioning: Same Family relationships: Same Social relationships: Same Mood: Same Sleep patterns: Same Overall functioning: Same Review of Systems Depressive Symptoms: not depressed or irritable, no loss of interest, not feeling worthless or guilty, no suicidal ideation, no guns or weapons in household. Manic Symptoms: mood is not irritable or elevated, self esteem is not grandiose or increased, no changes in need for sleep. Psychotic Symptoms: no hallucinations, no delusions. Anxiety Symptoms: excessive worry, specific phobia, but no panic attacks, no difficulty controllingworry, no increase in arousal, no sleep disturbances due to worry. Disordered Eating Symptoms: intense fear of gaining weight, poor body image, but weight is not lessthan 85% of ideal body weight, no amenorrhea, no restricting of diet and/or excessive exercise, no purging or laxative use. Post-traumatic stress disorder symptoms The patient is currently experiencing symptoms, emotional numbing, feeling detached, disinterest in life, hopelessness, but no flashbacks, no intrusive thoughts, no avoiding triggers, no relationship problems, no fear (more content not included)...[facility] 01-06-2023 Chief complaint Narrative - Reported* An interactive audio and video telecommunication system which permits real time communications between the patient (at the originating site) and provider (at the distant site) was utilized to providethis telehealth service. * Verbal consent was requested and obtained from LILY QUIROZ on this date, 01/06/2023 02:30 PM, for a telehealth visit. * [facility]-[address] Work Phone: [phone]) [phone] NoteChart Update Met with pt via breakout room in Zoom during BHIOP to discuss progress on treatment goals, beginning to think about discharge planning. Pt shared mood is overall better than prior to his hospitalization. Endorses suicidal thoughts without ideas about a method, plan or intent in the past week. Triggers are moments when he finds it hard to get out of bed or to motivate himself to do art, seeing online what other people are doing with their career or artwork and having negative thoughts about himself as a result, and then having thoughts like there's "no point to me being around." Discussed at length various cognitive behavioral strategies to employ when these thoughts arise including identifying cognitive distortions and challenging thoughts, using socratic questioning. Reviewed strategies from pt safety plan (see chart). Pt shared he has not self-harmed since prior to the hospitalization, which he attributes to less depression, "apathy" and lack of energy. Used motivational interviewing to discuss self-harming bx- ptis currently pre-contemplative about abstaining from or reducing self-harm, but willing to engage in harm reduction strategies. Pt had an intake assessment at a therapy practice in [place], [place] thisweek but felt it was not a good fit. Agreeable to the [facility] team finding individual therapists for ptthat are LGBTQ-affirming. We set a tentative discharge date of 01/12/23. ADRIENNE Leigh Civil Rights Attorney, [facility] Signatures Electronically signed by : ADRIENNE Leigh; Dec 31 2022 12:19PM EST (Author) [id number] History of Present illness Narrative* Pt presented on time. He was feeling more suicidal so he went to [facility] (see outside records). He stayed for about a week. His medicines were changing a lot. He feels "much better" now but thedepression is coming back a little. He's sleeping less and spending more. He took a clonazepam lastnight and didn't sleep. Suggested reducing adderall to BID. * I have personally reviewed the OARRS report for LILY QUIROZ. I have considered the risks of abuse, dependence, addiction and diversion. * I have the following concerns: none. * Is the patient prescribed a combination of a benzodiazepine and opioid? No. * Last urine drug screening date/ordered today: 12/21/2019 [facility] [address] [place] [address] Work Phone: [phone]) 982-416701-23-2023 Chief complaint Narrative - Reported* An interactive audio and video telecommunication system which permits real time communications between the patient (at the originating site) and provider (at the distant site) was utilized to providethis telehealth service. * Verbal consent was requested and obtained from LILYALLEN QUIROZ on this date, 12/07/2022 02:30 PM, for a telehealth visit. * [address] Work Phone: 1([phone]) 727-458201-23-2023 Chief complaint Narrative - Reported* An interactive audio and video telecommunication system which permits real time communications between the patient (at the originating site) and provider (at the distant site) was utilized to providethis telehealth service. * Verbal consent was requested and obtained from LILYALLEN QUIROZ on this date, 12/07/2022 02:30 PM, for a telehealth visit. * [address] Work Phone: [phone]) 780-523601-09-2023 Chief complaint Narrative - Reported* An interactive audio and video telecommunication system which permits real time communications between the patient (at the originating site) and provider (at the distant site) was utilized to providethis telehealth service. * Verbal consent was requested and obtained from LILY QUIROZ on this date, 11/23/2022 03:00 PM, for a telehealth visit. * [address] Work Phone: [phone]) 229-230701-09-2023 Chief complaint Narrative - Reported* An interactive audio and video telecommunication system which permits real time communications between the patient (at the originating site) and provider (at the distant site) was utilized to providethis telehealth service. * Verbal consent was requested and obtained from LILYALLEN QUIROZ on this date, 11/23/2022 03:00 PM, for a telehealth visit. * [facility] [address] [place] Work Phone: [phone] 559-423501-04-2023 History of Present illness Narrative* Arcadio is a 32 y/o transgender male (he/they)with a history of bipolar 1 disorder, ADHD, CPTSD and DIONE, seen as a new patient to me today for IOP admission/med management. * He sees Dr. Mccallum as an outpatient, and I have reviewed the medical record, including the most recent visit on 11/18/2022, at which quetiapine was titrated to 300 mg PO QHS and cariprazine was decreased to 1.5 mg PO daily. All other medications were continued at current doses. * He tells me that over the past month depressive symptoms have been worsening. Seem to be most apparent in the afternoon, but not sure why. Experiencing a lack of motivation. Hard to describe symptomsotherwise, "it feels like my soul is dying. That's the best way I can explain it." Poor concentration, worthlessness, hopelessness. Endorsing suicidal ideation with a plan to purchase a firearm, but no intent to act on this plan. "Laziness," and "fear," have stopped him from acting. He is supposed to start working with a new therapist toward the end of next month, but in the interim his psychiatrist recommended engagement in IOP given exacerbation of symptoms. * Recently cross-titrating cariprazine in favor of quetiapine for mood, and has noted significant improvement in sleep. Otherwise reports that he's gone through an extensive list of medication trials, and current regimen has been the most beneficial to date. * Current rx: * quetiapine 300 mg PO QHS * cariprazine 1.5 mg PO daily- tapering off in favor of quetiapine. * lithium 600 mg PO BID * lamotrigine 100 mg PO BID * citalopram 10 mg PO daily * clonazepam 1 mg PO BID (routinely) * Adderall IR 20 mg PO TID * Past rx: * "Man I've been on like everything." * lurasidone * fluoxetine * mirtazapine * methylphenidate- psychosis * asenapine * sertraline * venlafaxine * desvenlafaxine * vortioxetine * risperidone * olanzapine * ziprasidone * several antipsychotics caused akathisia, can't recall which ones. * Psych hx: * Dr. Peterson is outpatient provider * Ketamine treatments caused severe vomiting. * ECT treatments in the past, 25 treatments ( * late 2018)- initially with ketamine, then on it's own. Would feel well for a couple of weeks and depressive symptoms returned. Had severe memory impairment. * Has intake for a new therapist in late December. * Was seeing an individual therapist, Annamarie, until 3-4 months ago. * 25 hospitalizations. Last at [facility] sometime in 2020. * History of self-harm by cutting. Last was 3 days ago- cut upper thigh with an exacto-blade. * History of suicide attempt- not sure how many, at least 2. All by overdose. * Has completed IOP programs in the past (at least twice through ) * Family hx: * Mother- depression, anxiety * Brother- agoraphobia, alcohol abuse * Brother- in therapy, but not sure of diagnosis * No suicides in immediate family. Ex- by suicide in 2016. * Pertinent medical dx: * A-Fib- takes metoprolol daily. * Seasonal allergies * PCP- Dr. Tripathi * I have personally reviewed the OARRS report for LILY QUIROZ. I have considered the risks of abuse, dependence, addiction and diversion. * I have the following concerns: polypharmacy- patient has failed multiple past medication trials, with modest benefit from current regimen managed by outpatient provider. * Is the patient prescribed a combination of a benzodiazepine and opioid? No. [facility] [address] [place] Work Phone: [phone] History of Present illness Narrative* Arcadio is a 32 y/o transgender male (he/they)with a history of bipolar 1 disorder, ADHD, CPTSD and DIONE, seen as a new patient to me today for IOP admission/med management. * He sees Dr. Mccallum as an outpatient, and I have reviewed the medical record, including the most recent visit on 11/18/2022, at which quetiapine was titrated to 300 mg PO QHS and cariprazine was decreased to 1.5 mg PO daily. All other medications were continued at current doses. * He tells me that over the past month depressive symptoms have been worsening. Seem to be most apparent in the afternoon, but not sure why. Experiencing a lack of motivation. Hard to describe symptomsotherwise, "it feels like my soul is dying. That's the best way I can explain it." Poor concentration, worthlessness, hopelessness. Endorsing suicidal ideation with a plan to purchase a firearm, but no intent to act on this plan. "Laziness," and "fear," have stopped him from acting. He is supposed to start working with a new therapist toward the end of next month, but in the interim his psychiatrist recommended engagement in IOP given exacerbation of symptoms. * Recently cross-titrating cariprazine in favor of quetiapine for mood, and has noted significant improvement in sleep. Otherwise reports that he's gone through an extensive list of medication trials, and current regimen has been the most beneficial to date. * Current rx: * quetiapine 300 mg PO QHS * cariprazine 1.5 mg PO daily- tapering off in favor of quetiapine. * lithium 600 mg PO BID * lamotrigine 100 mg PO BID * citalopram 10 mg PO daily * clonazepam 1 mg PO BID (routinely) * Adderall IR 20 mg PO TID * Past rx: * "Man I've been on like everything." * lurasidone * fluoxetine * mirtazapine * methylphenidate- psychosis * asenapine * sertraline * venlafaxine * desvenlafaxine * vortioxetine * risperidone * olanzapine * ziprasidone * several antipsychotics caused akathisia, can't recall which ones. * Psych hx: * Dr. Peterson is outpatient provider * Ketamine treatments caused severe vomiting. * ECT treatments in the past, 25 treatments ( * late 2018)- initially with ketamine, then on it's own. Would feel well for a couple of weeks and depressive symptoms returned. Had severe memory impairment. * Has intake for a new therapist in late December. * Was seeing an individual therapist, Annamarie, until 3-4 months ago. * 25 hospitalizations. Last at [facility] sometime in 2020. * History of self-harm by cutting. Last was 3 days ago- cut upper thigh with an exacto-blade. * History of suicide attempt- not sure how many, at least 2. All by overdose. * Has completed IOP programs in the past (at least twice through ) * Family hx: * Mother- depression, anxiety * Brother- agoraphobia, alcohol abuse * Brother- in therapy, but not sure of diagnosis * No suicides in immediate family. Ex- by suicide in 2017. * Pertinent medical dx: * A-Fib- takes metoprolol daily. * Seasonal allergies * PCP- Dr. Tripathi * I have personally reviewed the OARRS report for LILY QUIROZ. I have considered the risks of abuse, dependence, addiction and diversion. * I have the following concerns: polypharmacy- patient has failed multiple past medication trials, with modest benefit from current regimen managed by outpatient provider. * Is the patient prescribed a combination of a benzodiazepine and opioid? No. [facility]-[address] Work Phone: [phone]) [phone] History of Present illness NarrativePt presented on time. They were able to increase the quetiapine. They're feeling an increase in depressive episodes. They occur more days than not but only for part of the day. The frequency and intensity have increased. They've noticed an increase in SI frequency and intensity. Higher doses of vraylar caused "fogginess". They self harmed 4 times on thigh by cutting. Last was 3 days ago. None required more than blotting to stop the bleeding. A week ago they had thoughts of getting a gun and looked at where they could get one. They didn't go forward with it because they lacked motivation to get up and carry it out. Denies firearms in home. They did think about their family and cat and how they would be sad. Discussed trial of quetiapine at a higher dose more likely to help with mood. Will plan a very slow cross-titration. Discussed past trauma of 's passing which tends to come up around this time of year. They haven't been in as much contact with their inlaws this year and now will be meeting up with them after sending [employer] messages. Next month they have an intake to start with a new therapist. Recommended going to [facility] until they can start therapy again.[facility] [address] [place] [address] Work Phone: [phone] History of Present illness NarrativePt presented on time. They were able to increase the quetiapine. They're feeling an increase in depressive episodes. They occur more days than not but only for part of the day. The frequency and intensity have increased. They've noticed an increase in SI frequency and intensity. Higher doses of vraylar caused "fogginess". They self harmed 4 times on thigh by cutting. Last was 3 days ago. None required more than blotting to stop the bleeding. A week ago they had thoughts of getting a gun and looked at where they could get one. They didn't go forward with it because they lacked motivation to get up and carry it out. Denies firearms in home. They did think about their family and cat and how they would be sad. Discussed trial of quetiapine at a higher dose more likely to help with mood. Will plan a very slow cross-titration. Discussed past trauma of 's passing which tends to come up around this time of year. They haven't been in as much contact with their inlaws this year and now will be meeting up with them after sending [employer] messages. Next month they have an intake to start with a new therapist. Recommended going to IOP until they can start therapy again.[facility] [address] [place] Work Phone: [phone] History of Present illness Narrative* Arcadio is a 32 y/o transgender male (he/they)with a history of * seen as a new patient to me today for IOP admission/med management. * -depression has increased over the past month. * -seems to be more pronounced in the afternoon, not sure why * -lack of motivation, "feels like my soul is dying," * -increase in anxiety. * -sleeping well taking quetiapine. * -no change in appetite * -energy is "just baseline." * -poor concentration. * -(+) worthlessness * -(+) hopelessness * -suicidal ideation with a plan to purchase a gun and shoot himself. * -"laziness " "fear" have stopped from acting on plan. * -supposed to start seeing a new therapist next month. Psychiatrist suggested IOP between now and then. * Current rx: * quetiapine 300 mg PO QHS * cariprazine 1.5 mg PO daily- tapering off in favor of quetiapine. * lithium 600 mg PO BID * lamotrigine 100 mg PO BID * citalopram 10 mg PO daily * clonazepam 1 mg PO BID (routinely) * Adderall IR 20 mg PO TID * Past rx: * "Man I've been on like everything." * lurasidone * fluoxetine * mirtazapine * methylphenidate- psychosis * asenapine * sertraline * venlafaxine * desvenlafaxine * vortioxetine * risperidone * olanzapine * ziprasidone * several antipsychotics caused akathisia, can't recall which ones. * Psych hx: * Dr. Peterson is outpatient provider * Ketamine treatments caused severe vomiting. * ECT treatments in the past, 25 treatments ( * late 2018)- initially with ketamine, then on it's own. Would feel well for a couple of weeks and depressive symptoms returned. Had severe memory impairment. * Has intake for a new therapist in late December. * Was seeing an individual therapist, Annamarie, until 3-4 months ago. * 25 hospitalizations. Last at [facility] sometime in 2020. * History of self-harm by cutting. Last was 3 days ago- cut upper thigh with an exacto-blade. * History of suicide attempt- not sure how many, at least 2. All by overdose. * Has completed IOP programs in the past. * Family hx: * Mother- depression, anxiety * Brother- agoraphobia, alcohol abuse * Brother- in therapy, but not sure of diagnosis * No suicides in immediate family. Ex- by suicide in 2016. * Pertinent medical dx: * A-Fib- takes metoprolol daily. * Seasonal allergies * PCP- Dr. Tripathi * I have personally reviewed the OARRS report for LILYALLEN QUIROZ. I have considered the risks of abuse, dependence, addiction and diversion. * I have the following concerns: polypharmacy- patient has failed multiple past medication trials, with modest benefit from current regimen managed by outpatient provider. * Is the patient prescribed a combination of a benzodiazepine and opioid? No. [facility]-[address] Work Phone: [phone] Miscellaneous Notes* [facility]27/[facility]22 9:27 AM EDT Call from pharmacy requesting refill. Requested Prescriptions Pending Prescriptions Disp Refills metoprolol succinate ER (TOPROL XL) 50 mg 24 hr tablet [Pharmacy Med Name: METOPROLOL SUCC ER 50 MGTAB] 90 tablet 3 Sig: TAKE 1 TABLET BY MOUTH EVERY DAY Patient last seen January 2022 Nicki Garzon [facility] [place] [facility] this encounter[facility] History of Present illness NarrativePt presented on time. Mood "ok" since last session. The anxiety has reduced. They still have some worry about spiders but it's less than before. They've had some SI, last was last night. They thoughtabout different ways one might end their life but denies entertaining a specific plan or feeling any urge or intention to carry out the action. They haven't been able to do art because they're feeling blocked creatively and also having some tremor from the lithium. Denies other SE to lithium. They've not had this creative block before. When they sit down to draw they feel heavy and a lack of interest in trying. Normally when depressed they draw sad drawings but still have an interest. Sleep hasbeen "normal". They sleep 10 hours.[facility] [place] Work Phone: [phone]) [phone] Miscellaneous Notes* Telephone Encounter - Aaliyah Felix RN - 02/25/2022 9:55 AM EDT Left VM with results and office number. Mayi SALAS * Telephone Encounter - Aaliyah Felix RN - 02/25/2022 9:55 AM EDT ----- Message from Dorian Jeffers MD sent at 02/24/2022 3:56 PM EDT ----- Pls let her know zio showed no afib. No significant arrhythmias. Good news. No change in management. Thx. J documented in this encounterUniversity Hospitals [facility] Center03-04-2022 History of Present illness NarrativePt presented on time. Mood "depressed". They were able to titrate the ritalin. Denies significant SE. They've noticed worsening depressed mood 2 weeks ago that has continued to decline over that time. They've been having SI "on and off". The severity is variable. They've hit their hand with a hammer 3 days in a row a week ago and again yesterday. There is light bruising. Denies broken bones. They're going [place] someone [place] [facility] [place] [facility] [place]. [facility] [address] [place] [address] Work Phone: [phone] History of Present illness NarrativePt presented on time. Mood "up and down". They had a could of days with depressed mood and some passive SI. Today they feel "fine". They had 1 episode of NSSI by cutting on thigh 2 weeks ago. They put bandaid on and didn't require medical attention. Discussed TMS as an option. They agreed to talk to Dr Cornejo about it. Focus is worse. They came out to 3 brothers. Two of their brothers said they already knew. They were all supportive. The hope is to have their support if and when they talk to the parents. [facility] [address] [place] [address] Work Phone: [phone] History of Present illness NarrativePt presented on time. Mood "up and down". They had a could of days with depressed mood and some passive SI. Today they feel "fine". They had 1 episode of NSSI by cutting on thigh 2 weeks ago. They put bandaid on and didn't require medical attention. Discussed TMS as an option. They agreed to talk to Dr Cornejo about it. Focus is worse. They came out to 3 brothers. Two of their brothers said they already knew. They were all supportive. The hope is to have their support if and when they talk to the parents. They contacted [facility] [address] [place] [address] Work Phone: 1([phone]) [phone] History of Present illness NarrativePt presented on time. Mood "up and down". They had a could of days with depressed mood and some passive SI. Today they feel "fine". They had 1 episode of NSSI by cutting on thigh 2 weeks ago. They put bandaid on and didn't require medical attention. Discussed TMS as an option. They agreed to talk to Dr Cornejo about it. Focus is worse. They came out to 3 brothers. Two of their brothers said they already knew. They were all supportive. The hope is to have their support if and when they talk to the parents. They contacted [employer] Work Phone: [phone]) [phone] History of Present illness Narrative* Started week more depressed and suicidal, but past few nights has not slept in 4 days, finding [place] [employer] to [place] to buy stuff more, has done a lot more art this week Mind racing past few days, tried quetiapine 200 mg to no effect. States flight of ideas. Taking all other medications as they are. * A few of the days had some hypnogogic hallucinations. * Came out to his brother, and went much better than expected. Has looked into Section 8 in case his parents disown him. * Currently weighs 190#. * Will trial holding afternoon Adderall, increase quetiapine to 200 mg, and increase clonazepam to 2 mg tonight. * Denies current SI, HI, AVH. KH-Oipcmstzlp-Feuwad [address] [place] [address] [address]151 Work Phone: [phone] Chief complaint Narrative - Reported* An interactive audio and video telecommunication system which permits real time communications between the patient (at the originating site) and provider (at the distant site) was utilized to providethis telehealth service. * Verbal consent was requested and obtained from LILY QUIROZ on this date, 10/03/2021 10:00 AM, for a telehealth visit. * Bipolar d/o Lupillo [address] [place] [address] IOP 3151 Work Phone: [phone] History of Present illness Narrative* Still has allergies related to season change, fatigued by this but otherwise more depressed with cat getting really sick.Lots of concerning signs he has cancer. * Feeling more tired this week, sleeping * 10-11 hours/night. Dreaming a lot more. Was also sick this week with viral URI, recognizes this as fatiguing. 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 Sleeping okay. * Trying to motivate himself to do art this weekend. * Finds metformin helpful, eating less overall, has lost some weight. Had GI distress first few days but has gone away. * Has been able to sleep more this past week, more groggy in the morning, not taking afternoon Adderall. * Still able to do some art. * Still feeling isolated with family and gender issues. * Difficulty teasing out which meds are doing what. Does not feel like topiramate has been. * Started week more depressed and suicidal, but past few nights has not slept in 4 days, finding self going to [employer] to try to buy stuff more, has done a lot more art this week Mind racing past few days, tried quetiapine 200 mg to no effect. States flight of ideas. Taking all other medications as they are. * A few of the days had some hypnogogic hallucinations. * Came out to his brother, and went much better than expected. Has looked into Section 8 in case his parents disown him. * Currently weighs 190#. * Will trial holding afternoon Adderall, increase quetiapine to 200 mg, and increase clonazepam to 2 mg tonight. * Was able to get out of the house more to run errands. * Was able to draw for the first time in 4 weeks, felt relieving, got a commission. Happy he at leastdrew. * He is struggling with imposter syndrome. * Focusing on self-compassion, grief processing. * Hasn't been able to motivate himself besides enrique Blanton. Will hang out with brother and play board games. * Coming to [facility] because of worsening suicidality, with increased depression and anxiety. * Quetiapine largely helps with sleep. Has also tried benadryl, Unisom, trazodone. Has not tried clonidine, but on metoprolol for afib. * Pt presented on time. Mood "bruno good, sorta level" since last session. Denies NSSI since lastsession. They had 2 instances of brief, passing SI. Denies plan or intent. They were able to titrate the adderall. Focus is better and they don't feel as tired. They believe BP was "normal" when at the ED last month. They were able to titrate the lithium. Denies polyuria/polydipsia. They have some tremor but it tends to manifest w/ intention like drawing. They didn't get to go to the lab because they missed a day of lithium and were afraid the values would be off. They plan to go tomorrow. Pt inquired about hormone therapy. Provided info for several services. Discussed living situation and how hormone therapy would impact that. They experience dysphoria from their voice and feminine face and want to just start but fear how parents would react. They wonder if they can get away with something to de-feminize without anyone noticing. Suggested pt have an information gathering appointment with a provider. NH-Oifjixhffi-Hceiuo [address] [place] [address] 3151 Work Phone: [phone] Chief complaint Narrative - Reported* An interactive audio and video telecommunication system which permits real time communications between the patient (at the originating site) and provider (at the distant site) was utilized to providethis telehealth service. * Verbal consent was requested and obtained from LILY QUIROZ on this date, 09/19/2021 10:00 AM, for a telehealth visit. * Bipolar d/o HG-Vycenakwiq-Vhrjdx [address] [place] [address] 3151 Work Phone: [phone] Chief complaint Narrative - Reported* An interactive audio and video telecommunication system which permits real time communications between the patient (at the originating site) and provider (at the distant site) was utilized to providethis telehealth service. * Verbal consent was requested and obtained from LILY QUIROZ on this date, 09/19/2021 10:00 AM, for a telehealth visit. * Bipolar d/o TT-Nopzowogaq-Ykpowe [address] [place] [address] 3151 Work Phone: [phone] Chief complaint Narrative - Reported* An interactive audio and video telecommunication system which permits real time communications between the patient (at the originating site) and provider (at the distant site) was utilized to providethis telehealth service. * Verbal consent was requested and obtained from LILY QUIROZ on this date, 09/10/2021 10:00 AM, for a telehealth visit. * Bipolar d/o WQ-Cqgezgdyos-Mdgowe [facility] 3151 Work Phone: [phone] Chief complaint Narrative - Reported* An interactive audio and video telecommunication system which permits real time communications between the patient (at the originating site) and provider (at the distant site) was utilized to providethis telehealth service. * Verbal consent was requested and obtained from LILY QUIROZ on this date, 09/05/2021 10:00 AM, for a telehealth visit. * Bipolar d/o QX-Bxusucjcgw-Pmjhii [facility] 3151 Work Phone: [phone] Chief complaint Narrative - Reported* An interactive audio and video telecommunication system which permits real time communications between the patient (at the originating site) and provider (at the distant site) was utilized to providethis telehealth service. * Verbal consent was requested and obtained from LILY QUIROZ on this date, 09/05/2021 10:00 AM, for a telehealth visit. * IOP * Both the patient, and caregivers and guardians as appropriate, were informed of the current need toconduct treatment via telephone. I have confirmed the patient s identity via the following acceptable identifiers as per Policy PH-9: Name, date of , and home address. ZQ-Orxgdcymfd-Olhjpw [facility] 3151 Work Phone: [phone] History of Present illness Narrative* Started week more depressed and suicidal, but past few nights has not slept in 4 days, finding selfgoing to [employer] to try to buy stuff more, has done a lot more art this week Mind racing past few days, tried quetiapine 200 mg to no effect. States flight of ideas. Taking all other medications as they are. * A few of the days had some hypnogogic hallucinations. * Came out to his brother, and went much better than expected. Has looked into Section 8 in case his parents disown him. * Currently weighs 190#. * Will trial holding afternoon Adderall, increase quetiapine to 200 mg, and increase clonazepam to 2 mg tonight. * Was able to get out of the house more to run errands. * Was able to draw for the first time in 4 weeks, felt relieving, got a commission. Happy he at leastdrew. * He is struggling with imposter syndrome. * Focusing on self-compassion, grief processing. * Hasn't been able to motivate himself besides watcihng Franny. Will hang out with brother and play board games. * Coming to IOP because of worsening suicidality, with increased depression and anxiety. * Quetiapine largely helps with sleep. Has also tried benadryl, Unisom, trazodone. Has not tried clonidine, but on metoprolol for afib. * Pt presented on time. Mood "bruno good, sorta level" since last session. Denies NSSI since lastsession. They had 2 instances of brief, passing SI. Denies plan or intent. They were able to titrate the adderall. Focus is better and they don't feel as tired. They believe BP was "normal" when at the ED last month. They were able to titrate the lithium. Denies polyuria/polydipsia. They have some tremor but it tends to manifest w/ intention like drawing. They didn't get to go to the lab because they missed a day of lithium and were afraid the values would be off. They plan to go tomorrow. Pt inquired about hormone therapy. Provided info for several services. Discussed living situation and how hormone therapy would impact that. They experience dysphoria from their voice and feminine face and want to just start but fear how parents would react. They wonder if they can get away with something to de-feminize without anyone noticing. Suggested pt have an information gathering appointment with a provider. ZP-Bardfepikh-Bpkmeg [facility] 8538 Work Phone: [phone] Chief complaint Narrative - Reported* An interactive audio and video telecommunication system which permits real time communications between the patient (at the originating site) and provider (at the distant site) was utilized to providethis telehealth service. * Verbal consent was requested and obtained from LILY QUIROZ on this date, 08/22/2021 09:00 AM, for a telehealth visit. * IOP * Both the patient, and caregivers and guardians as appropriate, were informed of the current need toconduct treatment via telephone. I have confirmed the patient s identity via the following acceptable identifiers as per Policy PH-9: Name, date of , and home address. SU-Yvxmvowgit-Jhoqqs [address] [place] [address] 3151 Work Phone: [phone] Chief complaint Narrative - Reported* An interactive audio and video telecommunication system which permits real time communications between the patient (at the originating site) and provider (at the distant site) was utilized to providethis telehealth service. * Verbal consent was requested and obtained from LILY QUIROZ on this date, 08/15/2021 10:00 AM, for a telehealth visit. * IOP * Both the patient, and caregivers and guardians as appropriate, were informed of the current need toconduct treatment via telephone. I have confirmed the patient s identity via the following acceptable identifiers as per Policy PH-9: Name, date of , and home address. GX-Ullhoorsik-Urumag [facility] 3151 Work Phone: [phone] Chief complaint Narrative - Reported* An interactive audio and video telecommunication system which permits real time communications between the patient (at the originating site) and provider (at the distant site) was utilized to providethis telehealth service. * Verbal consent was requested and obtained from LILY QUIROZ on this date, 07/11/2021 09:30 AM, for a telehealth visit. * Bipolar d/o UR-Sxfxnbrqmn-Nxigcl [address] [place] Work Phone: [phone] Chief complaint Narrative - Reported* An interactive audio and video telecommunication system which permits real time communications between the patient (at the originating site) and provider (at the distant site) was utilized to providethis telehealth service. * Verbal consent was requested and obtained from LILY QUIROZ on this date, 06/13/2021 09:30 AM, for a telehealth visit. * Bipolar d/o HE-Shsglbtubg-Rnehck [address] [place] [address] Work Phone: [phone] History of Present illness NarrativePt presented on time. Mood "bruno good, sorta level" since last session. Denies NSSI since last session. They had 2 instances of brief, passing SI. Denies plan or intent. They were able to titrate the adderall. Focus is better and they don't feel as tired. They believe BP was "normal" when at the ED last month. They were able to titrate the lithium. Denies polyuria/polydipsia. They have some tremor but it tends to manifest w/ intention like drawing. They didn't get to go to the lab because theymissed a day of lithium and were afraid the values would be off. They plan to go tomorrow. Pt inquired about hormone therapy. Provided info for several services. Discussed living situation and how hormone therapy would impact that. They experience dysphoria from their voice and feminine face and want to just start but fear how parents would react. They wonder if they can get away with something to de-feminize without anyone noticing. Suggested pt have an information gathering appointment with latisha. [facility] [address] [place] [address] Work Phone: [phone] History of Present illness NarrativePt presented on time. They went to the ER at [facility] on Wednesday night. They were getting more depressed and wanting to "be asleep". It started to turn into wanting to . Denies plan or intent. They were discharged. Pt thinks possibly because there weren't enough beds. Their family wants to sell the house but can't qualify for a loan to buy a new one and parents have been yelling at each other. The parents want them to take over utilities. The instability of housing caused anxiety to increase. Pt had some passive SI last night and this morning feeling more ok. Their lithium level was0.4 in the ED.[facility] [address] [place] [address] Work Phone: [phone] Chief complaint Narrative - Reported* An interactive audio and video telecommunication system which permits real time communications between the patient (at the originating site) and provider (at the distant site) was utilized [facility]. * Verbal consent was requested and obtained from LILY QUIROZ on this date, 04/22/2021 10:00 AM, for a telehealth visit. * Bipolar d/o EU-Hpqvppyecn-Pgvoro [place] Work Phone: [phone] History of Present illness Narrative* Pt presented on time. Her mood worsened gradually over the last 30 days. 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 She can't work for another 12 months in order to have her student loans forgiven. She also thought back to when she worked before and how her mental health interfered in her success. * She was able to cross-titrate from saphris to vraylar. She had a rash on her chest for a day but itwent away. Denies any other side effects. Her mood is "better" during the day but at night it gets pretty low. Since speaking on the phone she hit her hand with a hammer. She did it once about 3 daysago. It was close to when she was switching over to vraylar. Denies SI "right now" but at night shehas thoughts of going to sleep and not waking up. It's about the same as when speaking with technical document writer last week. The thoughts are still about "sleeping more" by taking extra sleeping pills. She's havingtrouble falling asleep but once asleep she stays asleep. Her thoughts are about escaping feelings, not poor sleep. Her medicines are in her brother's room but they aren't locked up so she can access them when he's at work. Resident Buyer has specifically spoken w/ pt's mother about locking meds up. Pt had bought a lock box for them. "Apathy" keeps her from doing it. It's "too much trouble". She fears dying as well. It's hard for her to think about the fact that her bouts of depression end when she's inthe middle of them. 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 Discussed these questions in terms of a safety plan.She doesn't feel that she's at the point of needing to go to the hospital. She's taking the lithiumas prescribed. She's taking the lamictal as a single dose in the morning. Discussed titrating overall dose and making BID for better coverage. KJ-Kdivsvwvss-Kjsasw [address] [place] [address] Work Phone: Chief complaint Narrative - Reported* An interactive audio and video telecommunication system which permits real time communications between the patient (at the originating site) and provider (at the distant site) was utilized to providethis telehealth service. * Bipolar d/o BN-Ccaylbtits-Fzkyso [address] [place] [address] Work Phone: Chief complaint Narrative - Reported* An interactive audio and video telecommunication system which permits real time communications between the patient (at the originating site) and provider (at the distant site) was utilized to providethis telehealth service. * Bipolar d/o TY-Edxlcyiiyu-Txgtyx [address] [place] [address] Work Phone: Chief complaint Narrative - Reported* An interactive audio and video telecommunication system which permits real time communications between the patient (at the originating site) and provider (at the distant site) was utilized to providethis telehealth service. * Bipolar d/o TD-Cegmiqioov-Lidiis [address] [place] [address] Work Phone: Chief complaint Narrative - Reported* An interactive audio and video telecommunication system which permits real time communications between the patient (at the originating site) and provider (at the distant site) was utilized to providethis telehealth service. * Bipolar d/o HM-Whriyedqxs-Mtalaw [address] [place] [address] Work Phone: Chief complaint Narrative - Reported* An interactive audio and video telecommunication system which permits real time communications between the patient (at the originating site) and provider (at the distant site) was utilized to providethis telehealth service. * Bipolar d/o ME-Ncypkhafhg-Fghzmq [address] [place] [address] Work Phone: Chief complaint Narrative - Reported* An interactive audio and video telecommunication system which permits real time communications between the patient (at the originating site) and provider (at the distant site) was utilized to providethis telehealth service. * Bipolar d/o XL-Ovywlbsxuf-Sqjkwo [address] [place] [address] Work Phone: Chief complaint Narrative - Reported* An interactive audio and video telecommunication system which permits real time communications between the patient (at the originating site) and provider (at the distant site) was utilized to providethis telehealth service. * Bipolar d/o TA-Bumhuayidf-Xjjfva [address] [place] [address] Work Phone: Chief complaint Narrative - Reported* An interactive audio and video telecommunication system which permits real time communications between the patient (at the originating site) and provider (at the distant site) was utilized to providethis telehealth service. * Bipolar d/o LV-Axkyjgyhbl-Wvxaze [address] [place] [address] Work Phone: Chief complaint Narrative - Reported* An interactive audio and video telecommunication system which permits real time communications between the patient (at the originating site) and provider (at the distant site) was utilized to providethis telehealth service. * Bipolar d/o QA-Qatehnqzhc-Xingsc [address] [place] [address] Work Phone: Chief complaint Narrative - Reported* An interactive audio and video telecommunication system which permits real time communications between the patient (at the originating site) and provider (at the distant site) was utilized to providethis telehealth service. * Bipolar d/o ZS-Cgrgkhsgvb-Msotpp [address] [place] [address] Work Phone: Chief complaint Narrative - Reported* An interactive audio and video telecommunication system which permits real time communications between the patient (at the originating site) and provider (at the distant site) was utilized to providethis telehealth service. * Bipolar d/o AB-Lowwizbakq-Rdials [address] [place] [address] Work Phone: Chief complaint Narrative - Reported* An interactive audio and video telecommunication system which permits real time communications between the patient (at the originating site) and provider (at the distant site) was utilized to providethis telehealth service. * Bipolar d/o YU-Hwpevjjftk-Bosyfo [address] [place] [address] Work Phone: Chief complaint Narrative - Reported* An interactive audio and video telecommunication system which permits real time communications between the patient (at the originating site) and provider (at the distant site) was utilized to providethis telehealth service. * Bipolar d/o DS-Htemuyoipz-Ujpnwl [address] [place] [address] Work Phone: Chief complaint Narrative - Reported* An interactive audio and video telecommunication system which permits real time communications between the patient (at the originating site) and provider (at the distant site) was utilized to providethis telehealth service. * Bipolar d/o FD-Nmiptvchfd-Trozyo [address] [place] [address] Work Phone: Chief complaint Narrative - Reported* An interactive audio and video telecommunication system which permits real time communications between the patient (at the originating site) and provider (at the distant site) was utilized to providethis telehealth service. * Bipolar d/o BA-Jplasbhjqy-Xdswjm [address] [place] [address] Work Phone: Chief complaint Narrative - Reported* An interactive audio and video telecommunication system which permits real time communications between the patient (at the originating site) and provider (at the distant site) was utilized to providethis telehealth service. * Bipolar d/o MB-Qresjmrwkm-Agsbzt [address] [place] [address] Work Phone: Chief complaint Narrative - Reported* An interactive audio and video telecommunication system which permits real time communications between the patient (at the originating site) and provider (at the distant site) was utilized to providethis telehealth service. * Bipolar d/o AD-Wamqwuokmj-Twzaki [address] [place] [address] Work Phone: Chief complaint Narrative - Reported* An interactive audio and video telecommunication system which permits real time communications between the patient (at the originating site) and provider (at the distant site) was utilized to providethis telehealth service. * Bipolar d/o CF-Jdpinrzwxn-Unlixw [address] [place] [address] Work Phone: Chief complaint Narrative - Reported* An interactive audio and video telecommunication system which permits real time communications between the patient (at the originating site) and provider (at the distant site) was utilized to providethis telehealth service. * Bipolar d/o FT-Cmqlkabfmk-Tnpbva [address] [place] [address] Work Phone: Chief complaint Narrative - Reported* An interactive audio and video telecommunication system which permits real time communications between the patient (at the originating site) and provider (at the distant site) was utilized to providethis telehealth service. * Bipolar d/o PB-Qmvfyjnewc-Hrvunx [address] [place] [address] Work Phone: Chief complaint Narrative - Reported* An interactive audio and video telecommunication system which permits real time communications between the patient (at the originating site) and provider (at the distant site) was utilized to providethis telehealth service. * Bipolar d/o and anxiety JN-Bileddqasr-Sqifvx [address] [place] [address] Work Phone: Chief complaint Narrative - Reported* An interactive audio and video telecommunication system which permits real time communications between the patient (at the originating site) and provider (at the distant site) was utilized to providethis telehealth service. * Bipolar d/o and anxiety NQ-Iajnmuhgdm-Pfkqrp [address] [place] [address] Work Phone: Chief complaint Narrative - Reported* An interactive audio and video telecommunication system which permits real time communications between the patient (at the originating site) and provider (at the distant site) was utilized to providethis telehealth service. * Bipolar d/o and anxiety TH-Lbrinuknxd-Fmsfoc [address] [place] [address] Work Phone: Evaluation + Plan note No data available for this section [facility] Evaluation note* Diagnosis Other amnesia documented in this encounter [facility] Work Phone: Evaluation note* Diagnosis Paroxysmal atrial fibrillation (HCC)- Primary Atrial fibrillation [facility] [place] [facility] Diagnosis Gastroesophageal reflux disease, unspecified whether esophagitis present [facility] [place] [facility] Diagnosis Gastroesophageal reflux disease, unspecified whether esophagitis present- Primary BRBPR (bright red blood per rectum) Hemorrhage of rectum and anus Dyspepsia Dyspepsia and other specified disorders of function of stomach documented [facility] this [facility] [place] [facility]* Diagnosis Gastroesophageal reflux disease, unspecified whether esophagitis present [facility] [place] [facility]* Diagnosis Gastroesophageal reflux disease, unspecified whether esophagitis present [facility] [place] [facility]* Diagnosis Thyrotoxicosis without thyroid storm, unspecified thyrotoxicosis type- Primary [facility] this [facility] [place] [facility]* Diagnosis Nausea- Primary Nausea alone Vomiting without nausea, unspecified vomiting type Irritable bowel syndrome with constipation Irritable bowel syndrome documented in this [facility] [place] [facility]* Diagnosis Gastroesophageal reflux disease, unspecified whether esophagitis present Preop examination Preoperative examination, unspecified Paroxysmal A-fib (HCC) Atrial fibrillation MTHFR mutation (methylenetetrahydrofolate reductase) Disturbances of sulphur-bearing amino-acid metabolism Gastroesophageal reflux disease, unspecified whether esophagitis present documented [facility] note* Diagnosis Gastroesophageal reflux disease, unspecified whether esophagitis present Preop examination Preoperative examination, unspecified Paroxysmal A-fib (HCC) Atrial fibrillation MTHFR mutation (methylenetetrahydrofolate reductase) 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, unspecified thyrotoxicosis type documented in this [facility] note* Diagnosis Gastroesophageal reflux disease, unspecified whether esophagitis present Preop examination Preoperative examination, unspecified Paroxysmal A-fib (HCC) Atrial fibrillation MTHFR mutation (methylenetetrahydrofolate reductase) Disturbances of sulphur-bearing amino-acid metabolism Abnormal TSH- Primary Other abnormal clinical finding Thyrotoxicosis without thyroid storm, unspecified thyrotoxicosis type documented in this [facility] note* Diagnosis Gastroesophageal reflux disease, unspecified whether esophagitis present Preop examination Preoperative examination, unspecified Paroxysmal A-fib (HCC) Atrial fibrillation MTHFR mutation (methylenetetrahydrofolate reductase) 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, 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 Insomnia, unspecified type documented in this [facility] note* Diagnosis Gastroesophageal reflux disease, unspecified whether esophagitis present Preop examination Preoperative examination, unspecified Paroxysmal A-fib (HCC) Atrial fibrillation MTHFR mutation (methylenetetrahydrofolate reductase) Disturbances of sulphur-bearing amino-acid metabolism Gastroesophageal reflux disease, unspecified whether esophagitis present documented in [facility] note* Diagnosis Gastroesophageal reflux disease, unspecified whether esophagitis present Preop examination Preoperative examination, unspecified Paroxysmal A-fib (HCC) Atrial fibrillation MTHFR mutation (methylenetetrahydrofolate reductase) Disturbances of sulphur-bearing amino-acid metabolism Paroxysmal A-fib (HCC)- Primary Atrial fibrillation documented in this [facility] note* Diagnosis Gastroesophageal reflux disease, unspecified whether esophagitis present Preop examination Preoperative examination, unspecified Paroxysmal A-fib (HCC) Atrial fibrillation MTHFR mutation (methylenetetrahydrofolate reductase) Disturbances of sulphur-bearing amino-acid metabolism AF (paroxysmal atrial fibrillation) (HCC)- Primary Atrial fibrillation [facility]* Diagnosis Gastroesophageal reflux disease, unspecified whether esophagitis present Preop examination Preoperative examination, unspecified Paroxysmal A-fib (HCC) Atrial fibrillation MTHFR mutation (methylenetetrahydrofolate reductase) Disturbances of sulphur-bearing amino-acid metabolism Schizoaffective disorder, unspecified type (HCC)- Primary [facility]* Diagnosis Gastroesophageal reflux disease, unspecified whether esophagitis present Preop examination Preoperative examination, unspecified Paroxysmal A-fib (HCC) Atrial fibrillation MTHFR mutation (methylenetetrahydrofolate reductase) Disturbances of sulphur-bearing amino-acid metabolism Gastroesophageal reflux disease, unspecified whether esophagitis present [facility]* Current Providers: * Psychiatrist: Adriana Peterson * Therapist: Annamarie Saenz * How long have you been with these providers? * What precipitated this most recent episode? Present stressors? Pt. reported recent increase in depressive and anxiety symptoms. Pt. reported these symptoms began to worsen while planning a trip with their peers from an [employer] [employer] community. Pt. reported increased social anxiety when anticipating leaving the house and their attachment figure (brother). Pt. reported present stressors including managing and coping with symptoms, off and on SI (denied current), and managing daily life. * Recent Hospitalization: Pt. was hospitalized in May, for depression and SI. Pt. was released from the ED the same day; they collectively decided inpatient hospitalization was not necessary. Pt.has an extensive hx of hospitalizations for psych. * None; pt. denied. * Suicidal ideation: * Pt. reported SI without plan * Homicidal Ideation: * No HI: Pt. denied HI * Current self-harming behavior: * Pt. reported a hx of self-harming behavior including cutting with razor blades on their thighs and hitting themselves with a hammer. Pt. reported engaging in these behaviors off and on since age 12. Pt. reported not engaging in self- harm for about a month. * Recent losses or deaths: * None; pt. denied. * Level of functioning impairment at work/home/school: * Pt. reported level of functioning impairment ranging from moderate to severe, depending on the day. DL-Nmimxmzobi-Ltkxjh 3rd [facility] IOP 3151 Work Phone: History of Present illness Narrative* Coming to [facility] because of worsening suicidality, with increased depression and anxiety. Has not engaged in any NSSI. * Quetiapine largely helps with sleep. Has also tried benadryl, Unisom, trazodone. Has not tried clonidine, but on metoprolol for afib. * A lot of stressors currently with not being out to his family, despite presenting much more masculinely, consistently using chest binder. * No current HI. Chronic AH as per previous notes. Passive SI currently, no plan nor intent. CZ-Jdaaepflss-Gznjey 3rd Mood [facility] 3157 Work Phone: History of Present illness Narrative* Had a difficult week due to more people in group discussing details of their trauma, still feeling down. Sleeping okay. * Trying to motivate himself to do art this weekend. * Finds metformin helpful, eating less overall, has lost some weight. Had GI distress first few days but has gone away. * Has been able to sleep more this past week, more groggy in the morning, not taking afternoon Adderall. * Still able to do some art. * Still feeling isolated with family and gender issues. * Difficulty teasing out which meds are doing what. Does not feel like topiramate has been. * Started week more depressed and suicidal, but past few nights has not slept in 4 days, finding self going to [employer] to try to buy stuff more, has done a lot more art this week Mind racing past few days, tried quetiapine 200 mg to no effect. States flight of ideas. Taking all other medications as they are. * A few of the days had some hypnogogic hallucinations. * Came out to his brother, and went much better than expected. Has looked into [employer] in case his parents disown him. * Currently weighs 190#. * Will trial holding afternoon Adderall, increase quetiapine to 200 mg, and increase clonazepam to 2 mg tonight. * Was able to get out of the house more to run errands. * Was able to draw for the first time in 4 weeks, felt relieving, got a commission. Happy he at leastdrew. * He is struggling with imposter syndrome. * Focusing on self-compassion, grief processing. * Hasn't been able to motivate himself besides watcihng TikTok. Will hang out with brother and play board games. * Coming to IOP because of worsening suicidality, with increased depression and anxiety. * Quetiapine largely helps with sleep. Has also tried benadryl, Unisom, trazodone. Has not tried clonidine, but on metoprolol for afib. * Pt presented on time. Mood "bruno good, sorta level" since last session. Denies NSSI since lastsession. They had 2 instances of brief, passing SI. Denies plan or intent. They were able to titrate the adderall. Focus is better and they don't feel as tired. They believe BP was "normal" when at the ED last month. They were able to titrate the lithium. Denies polyuria/polydipsia. They have some tremor but it tends to manifest w/ intention like drawing. They didn't get to go to the lab because they missed a day of lithium and were afraid the values would be off. They plan to go tomorrow. Pt inquired about hormone therapy. Provided info for several services. Discussed living situation and how hormone therapy would impact that. They experience dysphoria from their voice and feminine face and want to just start but fear how parents would react. They wonder if they can get away with something to de-feminize without anyone noticing. Suggested pt have an information gathering appointment with a provider. [facility] 3151 Work Phone: History of Present illness Narrative* Hasn't been able to motivate himself besides watcihng TikTok. Will hang out with brother and play board games. * Continued passive SI, no plan nor intent, still figures things would be easier if . * Coming to [facility] because of worsening suicidality, with increased depression and anxiety. * Quetiapine largely helps with sleep. Has also tried benadryl, Unisom, trazodone. Has not tried clonidine, but on metoprolol for afib. * Denies current HI, AVH. TZ-Txbsnppzkp-Gwhrsy 3rd [facility] IOP 3151 Work Phone: History of Present illness Narrative* Had a difficult week due to more people in group discussing details of their trauma, still feeling down. Sleeping okay. * Trying to motivate himself to do art this weekend. * Finds metformin helpful, eating less overall, has lost some weight. Had GI distress first few days but has gone away. * Has been able to sleep more this past week, more groggy in the morning, not taking afternoon Adderall. * Still able to do some art. * Still feeling isolated with family and gender issues. * Difficulty teasing out which meds are doing what. Does not feel like topiramate has been. * Started week more depressed and suicidal, but past few nights has not slept in 4 days, finding self going to [employer] to try to buy stuff more, has done a lot more art this week Mind racing past few days, tried quetiapine 200 mg to no effect. States flight of ideas. Taking all other medications as they are. * A few of the days had some hypnogogic hallucinations. * Came out to his brother, and went much better than expected. Has looked into [employer] in case his parents disown him. * Currently weighs 190#. * Will trial holding afternoon Adderall, increase quetiapine to 200 mg, and increase clonazepam to 2 mg tonight. * Was able to get out of the house more to run errands. * Was able to draw for the first time in 4 weeks, felt relieving, got a commission. Happy he at leastdrew. * He is struggling with imposter syndrome. * Focusing on self-compassion, grief processing. * Hasn't been able to motivate himself besides enrique Blanton. Will hang out with brother and play board games. * Coming to [facility] because of worsening suicidality, with increased depression and anxiety. * Quetiapine largely helps with sleep. Has also tried benadryl, Unisom, trazodone. Has not tried clonidine, but on metoprolol for afib. * Pt presented on time. Mood "bruno good, sorta level" since last session. Denies NSSI since lastsession. They had 2 instances of brief, passing SI. Denies plan or intent. They were able to titrate the adderall. Focus is better and they don't feel as tired. They believe BP was "normal" when at the ED last month. They were able to titrate the lithium. Denies polyuria/polydipsia. They have some tremor but it tends to manifest w/ intention like drawing. They didn't get to go to the lab because they missed a day of lithium and were afraid the values would be off. They plan to go tomorrow. Pt inquired about hormone therapy. Provided info for several services. Discussed living situation and how hormone therapy would impact that. They experience dysphoria from their voice and feminine face and want to just start but fear how parents would react. They wonder if they can get away with something to de-feminize without anyone noticing. Suggested pt have an information gathering appointment with a provider. TM-Okahuudsol-Zluctr 3rd [facility] 3151 Work Phone: History of Present illness NarrativePt presented on time. They were able to titrate the adderall but noticed no further benefits from the higher dose. Pt inquired about ritalin. Mood "up and down" since last session. They have "bad moments" for a few hours but then they will be ok. Discussed as possibly trauma-related. The mood swingis depressed, not manic. When it resolved they feel euthymic but not manic. Denies NSSI since last s ession. They've had some SI. They've been more intense. They started worsening 2 weeks ago. It's not every day. Denies SI today. Yesterday they had SI and had thoughts of taking too much metoprolol. They didn't do anything more. They distracted themselves by going online. Their brother still keeps the medicines but pt hadn't given him the metroprolol refill yet. Pt agreed to give the medicine to him after hanging up. They deny access to any other medicines. They had an accident where they hurt their finger in the car door and can't use it which has been frustrating. Reflected on lapse in therapy as another possible factor. Pt has a new kitten and wants to be around to care for it. They havebeen feeling less internal drive in moving towards more gender affirming procedures and want to wait on taking further steps. Coming out to their brothers "freaking me out". It felt "awesome" but also scary. The next step is telling the parents and doesn't feel ready. Provided mobile crisis for [facility]. VM-Lkhetnhrmu-Jnljqg Work Phone: History of Present illness Narrative* Has been able to sleep more this past week, more groggy in the morning, not taking afternoon Adderall. * Still able to do some art. * Still feeling isolated with family and gender issues. * Difficulty teasing out which meds are doing what. Does not feel like topiramate has been. * Started week more depressed and suicidal, but past few nights has not slept in 4 days, finding self going to [employer] to try to buy stuff more, has done a lot more art this week Mind racing past few days, tried quetiapine 200 mg to no effect. States flight of ideas. Taking all other medications as they are. * A few of the days had some hypnogogic hallucinations. * Came out to his brother, and went much better than expected. Has looked into [employer] in case his parents disown him. * Currently weighs 190#. * Will trial holding afternoon Adderall, increase quetiapine to 200 mg, and increase clonazepam to 2 mg tonight. * Was able to get out of the house more to run errands. * Was able to draw for the first time in 4 weeks, felt relieving, got a commission. Happy he at leastdrew. * He is struggling with imposter syndrome. * Focusing on self-compassion, grief processing. * Hasn't been able to motivate himself besides watcipallavi Blanton. Will hang out with brother and play board games. * Coming to [facility] because of worsening suicidality, with increased depression and anxiety. * Quetiapine largely helps with sleep. Has also tried benadryl, Unisom, trazodone. Has not tried clonidine, but on metoprolol for afib. * Pt presented on time. Mood "bruno good, sorta level" since last session. Denies NSSI since lastsession. They had 2 instances of brief, passing SI. Denies plan or intent. They were able to titrate the adderall. Focus is better and they don't feel as tired. They believe BP was "normal" when at the ED last month. They were able to titrate the lithium. Denies polyuria/polydipsia. They have some tremor but it tends to manifest w/ intention like drawing. They didn't get to go to the lab because they missed a day of lithium and were afraid the values would be off. They plan to go tomorrow. Pt inquired about hormone therapy. Provided info for several services. Discussed living situation and how hormone therapy would impact that. They experience dysphoria from their voice and feminine face and want to just start but fear how parents would react. They wonder if they can get away with something to de-feminize without anyone noticing. Suggested pt have an information gathering appointment with a provider. KG-Ybsvklqnkz-Bsosmr [address] [place] [address] IOP 3151 Work Phone: History of Present illness NarrativePt presented on time. Video not working. Mood "ok" since last session. They had a few bad days but overall better since titrating vraylar. They've had fewer days w/ SI and it's less intense. They had1 episode of self harm where they cut on their leg. It didn't require medical attention. Denies SI today. Their focus is fair with the ritalin. Anxiety has been fair. They had a few panic attacks. They have scheduled appointments with therapist again. Reflected that this is a harder time of year for pt because of past events and encouraged to continue therapy. Pt followed up w/ PCP on TSH and pt reports that the workup was fine. [facility] [place] Work Phone: History of Present illness NarrativePt presented on time. They were having some AH and since stopping ritalin they have stopped. Mood "confused, sometimes low and sometimes not". Denies significant SE. They feel "foggy". Timing seems close to titration of vraylar. Suggested tapering back to 3mg. There was 1 episode of self harm by hitting hand with hammer again. They didn't meet the therapist for gender dysphoria. They were too anxious to meet.[facility] [address] [place] [address] Work Phone: History of Present illness NarrativePt presented on time. They were having some AH and since stopping ritalin they have stopped. Mood "confused, sometimes low and sometimes not". Denies significant SE. They feel "foggy". Timing seems close to titration of vraylar. Suggested tapering back to 3mg. There was 1 episode of self harm by hitting hand with hammer again. They didn't meet the therapist for gender dysphoria. They were too anxious to meet.[facility] [address] [place] [address] Work Phone: History of Present illness NarrativePt presented on time. They were able to taper the vraylar to 3mg and the fogginess improved. Sleep has been worse because of back pain which has caused some lower mood. It's only when trying to sleep. The mattress is new. They have muscle spasms. Discussed magnesium citrate for the spasms. They aregoing to see a PCP about it and get an xray. Focus is ok but pt feels the old dose was better. Denies SI/NSSI.[facility] [address] [place] [address] Work Phone: History of Present illness NarrativePt presented on time. Mood "ok". They've felt more anxious lately. They're seeing more spiders in the house and car and it's causing anxiety. They've always had a fear of spiders but the checking is new. They haven't been able to do much art which has been depressing. They're still having back spasms. They lost some weight which may be helpful. Denies SI/NSSI. Discussed resuming therapy to address phobia. Pt takes many serotonergic medicines and medication is not typically successful in managing phobias. Discussed timing of titrated adderall and increased anxiety. Suggested changing adderall scheduling to give pt more control over dosing when feeling anxious.[facility] [address] [place] [address] Work Phone: History of Present illness NarrativePt presented on time. Mood "ok". They've felt more anxious lately. They're seeing more spiders in the house and car and it's causing anxiety. They've always had a fear of spiders but the checking is new. They haven't been able to do much art which has been depressing. They're still having back spasms. They lost some weight which may be helpful. Denies SI/NSSI. Discussed resuming therapy to address phobia. Pt takes many serotonergic medicines and medication is not typically successful in managing phobias. Discussed timing of titrated adderall and increased anxiety. Suggested changing adderall scheduling to give pt more control over dosing when feeling anxious.YG-Chvorttqmk-Tdaopi [address] [place] [address] Work Phone: History of Present illness NarrativePt presented on time. Mood "ok" since last session. The anxiety has reduced. They still have some worry about spiders but it's less than before. Denies significant depressed mood. Denies SI/NSSI. She's resumed therapy which has been helpful. Taking medicines as prescribed. Denies significant SE.KH-Zjeqvxlrna-Lbtrxt [address] [place] [address] Work Phone: History of Present illness NarrativePt presented on time. Mood "ok" since last session. The anxiety has reduced. They still have some worry about spiders but it's less than before. Denies significant depressed mood. Denies SI/NSSI. She's resumed therapy which has been helpful. Taking medicines as prescribed. Denies significant SE.JY-Jekuapblyl-Wfwqpk 12th [place] Work Phone: History of Present illness NarrativePt presented on time. They were able to get the NAC but started to have nightmares so they stopped taking it. Mood "ok" since last session. Anxiety has been high. They've been able to do some art lately so they see some improvement in motivation. Depression has been "ok". Denies NSSI. Sleeping ok. Discussed elevated lithium level. Will d/c 300mg capsule and recheck.Pt doesn't feel a strong connections with therapist and would like to find someone else.KO-Ywhnkxviln-Ahhygd 12th [place] Work Phone: History of Present illness NarrativePt presented on time. They were able to titrate the citalopram. Mood "ok" since last session. Anxiety has been "a bit better". Motivation for art is "a bit better". They've done a few drawings. They had "a couple" bouts of depressed mood w/ NSSI by cutting leg. The cuts were superficial and did notrequire medical attention. Denies SI. Sleeping ok. Discussed checking lithium level again. The tremors are about the same.[facility] [place] Work Phone: History of Present illness NarrativePt presented on time. Mood "more depressed" since last session. Her mom's health is "not good" but this isn't a big change that might explain the mood change. Anxiety is "ok sometimes". It gets worseat night. They have an appointment with a new therapist starting next month at [facility]. Their family has been there before. They self harmed thoughts after having a lot of intrusive thoughts. They cut their leg. The cuts were superficial and did not require medical attention.They had some SI yesterday. They thought about ways one might but denies setting a plan or having intent to carry anything out. Her brother still manages the medicines. Denies access to other lethal means. Her mother is important to her. Discussed timing of worsening mood with titration of citalopram. Discussed titrating quetiapine and tapering citalopram. [facility] [place] Work Phone: History of Present illness Narrative* Arcadio is a 32 y/o transgender male (he/they) seen in follow-up for bipolar 1 disorder, ADHD, CPTSDand DIONE. * Since his last appointment, reports that he has been, "really depressed." Having more suicidal thoughts, more "depression pain," and self-harming. A lot of agitation. Finding it difficult to get out of bed and do things. * Suicidal thoughts are sometimes passive, "just my brain saying you should kill yourself," to researching overdose amounts. Considered overdosing on quetiapine, but read that it isn't very lethal, so then considered acetaminophen. Has not been thinking much more about purchasing a firearm. Overdose is, "easier to get ahold of." Discusses that, "fear of the unknown," has stopped him from making an attempt. He is an atheist, believes that when you , there's nothing and has a fear of that nothingness. Feels like he can stay safe at home right now, but if that changed, he would call his brother. He's been supportive in the past and assisted him with getting to the ED. * -"not good." * -really depressed. * -more suicidal thoughts, more "depression pain," and self-harming. * -just not able to do things- hard to get up off bed. * -a lot of agitation. * -depression pain- "It's in my chest, and it feels like my soul is dying." * -gets worse as the day goes on. In the morning it's ok, but by noon it really starts to become bothersome. * -self-harm- cutting and hitting hand with a hammer. Cutting only happened once, but hammer multipletimes a day. * -agitation- "I want to yell at people." Yesterday mom wanted him to go to the store for her- he's been sick, and she knows he's depressed, so just wanted to yell at her about it. Didn't, "I just ruminated about how much it pissed me off." Teeth are clenched a lot. * -did express to mom how he was feeling. * -today mom sent a list of things to buy- but got brother to come with him, so a little less agitated. * -saw Dr. Mccallum last week. * -off of cariprazine- went fine. Didn't notice any side effects. * -quetiapine increases his appetite- doesn't like that. Has been on it before. * -waking * 4 times/night, usually for * 10 minutes, but last night had sleep paralysis, so didn't want to go back to sleep- was up a littlelonger. * -sleep paralysis comes and goes- can be gone for months and then come back. Seems random. * -groups going, "good I think." * -helpful, good to talk to people. * -in terms of suicidal thoughts- has been at the point where he's sitting in the bathroom holding the bottle of Tylenol, thinking about what nothingness would be like. "If I wasn't afraid I think I would do it." * -feels safe right now. * -would call his brother if he wasn't feeling safe. Has been able to reach out to him before and he's been helpful. Has taken him to the ED. * From previous assessment 11/23/2022: * Current rx: * quetiapine 300 mg PO QHS * cariprazine 1.5 mg PO daily- tapering off in favor of quetiapine. * lithium 600 mg PO BID * lamotrigine 100 mg PO BID * citalopram 10 mg PO daily * clonazepam 1 mg PO BID (routinely) * Adderall IR 20 mg PO TID * Past rx: * "Man I've been on like everything." * lurasidone * fluoxetine * mirtazapine * methylphenidate- psychosis * asenapine * sertraline * venlafaxine * desvenlafaxine * vortioxetine * risperidone * olanzapine * ziprasidone * several antipsychotics caused akathisia, can't recall which ones. * Psych hx: * Dr. Peterson is outpatient provider * Ketamine treatments caused severe vomiting. * ECT treatments in the past, 25 treatments ( * late 2018)- initially with ketamine, then on it's own. Would feel well for a couple of weeks and depressive symptoms returned. Had severe memory impairment. * Has intake for a new therapist in late December. * Was seeing an individual therapist, Annamarie, until 3-4 months ago. * 25 hospitalizations. Last at [facility] sometime in 2020. * History of self-harm by cutting. Last was 3 days ago- cut upper thigh with an exacto-blade. * History of suicide attempt- not sure how many, at least 2. All by overdose. * Has completed IOP programs in the past (at least twice through ) * Family hx: * Mother- depression, anxiety * Brother- agoraphobia, alcohol abuse * Brother- in therapy, but not sure of diagnosis * No suicides in immediate family. Ex- by suicide in 2017. * Pertinent medical dx: * A-Fib- takes metoprolol daily. * Seasonal allergies * PCP- Dr. Tripathi * I have personally reviewed the OARRS report for LILY QUIROZ. I have considered the risks of abuse, dependence, addiction and diversion. * I have the following concerns: polypharmacy- patient has failed multiple past medication trials, with modest benefit from current regimen managed by outpatient provider. * Is the patient prescribed a combination of a benzodiazepine and opioid? No. [facility] Work Phone: History of Present illness Narrative* Arcadio is a 32 y/o transgender male (he/they) seen in follow-up for bipolar 1 disorder, ADHD, CPTSDand DIONE. * Since his last appointment, reports that he has been, "really depressed." Having more suicidal thoughts, more "depression pain," and self-harming. A lot of agitation. Finding it difficult to get out of bed and do things. * Suicidal thoughts are sometimes passive, "just my brain saying you should kill yourself," to researching overdose amounts. Considered overdosing on quetiapine, but read that it isn't very lethal, so then considered acetaminophen. Has not been thinking much more about purchasing a firearm. Overdose is, "easier to get ahold of." Discusses that, "fear of the unknown," has stopped him from making an attempt. He is an atheist, believes that when you , there's nothing and has a fear of that nothingness. Feels like he can stay safe at home right now, but if that changed, he would call his brother. He's been supportive in the past and assisted him with getting to the ED. * Describes, "depression pain," as, "in my chest. It feels like my soul is dying." In the morning is less noticeable, but as the day progresses it gets worse. Has recently self-harmed once by cutting (in the past 2 weeks) and has also been hitting himself in the hand with a hammer several times a daymost days. Experiencing a lot of agitation. "I just want to yell at people." For example, got frustrated with mom for telling him to go to the store for her. She asks almost every day. She knows he has been feeling sick, and that he is depressed, so out of frustration he wanted to yell at her for asking. "I didn't. I just ruminated about how much it pissed me off." He was able to express to her how he was feeling, but today she gave him a list of things to get from the store again. His brother was willing to go with him, so that reduced his agitation a little. * Saw outpatient psychiatrist last week, and cariprazine has been discontinued, which he's tolerated.Quetiapine dose was increased. "It heightens my appetite, which I don't really like." It does help him with sleep and agitation, but still he wakes * 4 times/night most nights for * 10 minutes at a time. Last night woke in sleep paralysis, so was up a little longer because he had some anxiety about going back to sleep. Sleep paralysis has occurred off and on for years. "It can be gone for months and then come back." Doesn't associate it with any changes in mood or anxious symptoms, or any other obvious stressors. * Groups have been going well. He finds his peers very supportive, and it helps to have contact with them on a daily basis. * From previous assessment 11/23/2022: * Current rx: * quetiapine 300 mg PO QHS * cariprazine 1.5 mg PO daily- tapering off in favor of quetiapine. * lithium 600 mg PO BID * lamotrigine 100 mg PO BID * citalopram 10 mg PO daily * clonazepam 1 mg PO BID (routinely) * Adderall IR 20 mg PO TID * Past rx: * "Man I've been on like everything." * lurasidone * fluoxetine * mirtazapine * methylphenidate- psychosis * asenapine * sertraline * venlafaxine * desvenlafaxine * vortioxetine * risperidone * olanzapine * ziprasidone * several antipsychotics caused akathisia, can't recall which ones. * Psych hx: * Dr. Peterson is outpatient provider * Ketamine treatments caused severe vomiting. * ECT treatments in the past, 25 treatments ( * late 2018)- initially with ketamine, then on it's own. Would feel well for a couple of weeks and depressive symptoms returned. Had severe memory impairment. * Has intake for a new therapist in late December. * Was seeing an individual therapist, Annamarie, until 3-4 months ago. * 25 hospitalizations. Last at [facility] sometime in 2020. * History of self-harm by cutting. Last was 3 days ago- cut upper thigh with an exacto-blade. * History of suicide attempt- not sure how many, at least 2. All by overdose. * Has completed IOP programs in the past (at least twice through ) * Family hx: * Mother- depression, anxiety * Brother- agoraphobia, alcohol abuse * Brother- in therapy, but not sure of diagnosis * No suicides in immediate family. Ex- by suicide in 2017. * Pertinent medical dx: * A-Fib- takes metoprolol daily. * Seasonal allergies * PCP- Dr. Tripathi * I have personally reviewed the OARRS report for LILY QUIROZ. I have considered the risks of abuse, dependence, addiction and diversion. * I have the following concerns: polypharmacy- patient has failed multiple past medication trials, with modest benefit from current regimen managed by outpatient provider. * Is the patient prescribed a combination of a benzodiazepine and opioid? No. [facility] Work Phone: History of Present illness Narrative* Arcadio is a 32 y/o transgender male (he/they) seen in follow-up for bipolar 1 disorder, ADHD, CPTSDand DIONE. * Since his last appointment, * -not too much going on. * -groups going well- had to miss part of today's groups- had to take mom to the doctor * -hasn't gotten assigned a therapist yet- has to call to find out if someone's available. * -no side effects with meds. * -sleep has been good. * -ever since got a new bed has been a lot better. * -mood has been, "alright." * -still get some downs, every few days. Usually in the later part of the day. * -hasn't been able to do artwork yet- sitting the chair, but can't bring himself to do it. * -about 2 weeks ago did a drawing- "not my typical standard, but it was something." * -no self harm. * -"a little bit" of suicidal thinking. Earlier today and yesterday was thinking about it. "Just thoughts that I could still do it... that it's still an option." Same plan to purchase a gun. No intent behind. * -prior to yesterday hadn't had any thoughts like that. * -no major changes in fadi or energy level. * -still feeling less focused, and like he has less time to be focused. * -hasn't really adjusted to the lower dose. * From previous assessment 11/23/2022: * Current rx: * quetiapine 300 mg PO QHS * cariprazine 1.5 mg PO daily- tapering off in favor of quetiapine. * lithium 600 mg PO BID * lamotrigine 100 mg PO BID * citalopram 10 mg PO daily * clonazepam 1 mg PO BID (routinely) * Adderall IR 20 mg PO TID * Past rx: * "Man I've been on like everything." * lurasidone * fluoxetine * mirtazapine * methylphenidate- psychosis * asenapine * sertraline * venlafaxine * desvenlafaxine * vortioxetine * risperidone * olanzapine * ziprasidone * several antipsychotics caused akathisia, can't recall which ones. * Psych hx: * Dr. Peterson is outpatient provider * Ketamine treatments caused severe vomiting. * ECT treatments in the past, 25 treatments ( * late 2018)- initially with ketamine, then on it's own. Would feel well for a couple of weeks and depressive symptoms returned. Had severe memory impairment. * Has intake for a new therapist in late December. * Was seeing an individual therapist, Annamarie, until 3-4 months ago. * 25 hospitalizations. Last at [facility] sometime in 2020. * History of self-harm by cutting. Last was 3 days ago- cut upper thigh with an exacto-blade. * History of suicide attempt- not sure how many, at least 2. All by overdose. * Has completed IOP programs in the past (at least twice through ) * Family hx: * Mother- depression, anxiety * Brother- agoraphobia, alcohol abuse * Brother- in therapy, but not sure of diagnosis * No suicides in immediate family. Ex- by suicide in 2017. * Pertinent medical dx: * A-Fib- takes metoprolol daily. * Seasonal allergies * PCP- Dr. Tripathi * I have personally reviewed the OARRS report for LILYMAYRA QUIROZ. I have considered the risks of abuse, dependence, addiction and diversion. * I have the following concerns: polypharmacy- patient has failed multiple past medication trials, with modest benefit from current regimen managed by outpatient provider. * Is the patient prescribed a combination of a benzodiazepine and opioid? No. [facility] [address] Work Phone: History of Present illness Narrative* Pt presented on time. Mood "good" since last session. He had a few down days but "mostly normal". He was able to restart the topiramate and he feels it's helping. He joined a gym and adding a facial routine that's new. Anxiety has been "a little high". He feels this usually happens in the spring. Focus has been "really good". Denies SI/NSSI. Sleeping well. Appetite good. Taking medicine as prescribed. He likes his new therapist. They met 3 times so far. * I have personally reviewed the OARRS report for LILY QUIROZ. I have considered the risks of abuse, dependence, addiction and diversion. * I have the following concerns: none. * Is the patient prescribed a combination of a benzodiazepine and opioid? No. * Last urine drug screening date/ordered today: 02/10/2023 * Controlled Substance Agreement: * I have printed this form and reviewed each line item with the patient and the patient has verbalized understanding. * Date of the last Controlled Substance Agreement: 01/29/2023 * BENZODIAZEPINES * What is the patient s goal of therapy? anxiety tx. * Is this being achieved with current treatment? yes. * Activities of Daily Living: * Yes, it is my opinion that this patient is benefitting from benzodiazepine therapy. * Physical functioning: Same * Family relationships: Same * Social relationships: Same * Mood: Same * Sleep patterns: Same * Overall functioning: Same * STIMULANTS * What is the patient s goal of therapy? adhd tx. * Is this being achieved with current treatment? yes. * Activities of Daily Living: * Yes, it is my opinion that this patient is benefitting from stimulant therapy . * Physical functioning: Same * Family relationships: Same * Social relationships: Same * Mood: Same * Sleep patterns: Same * Overall functioning: Same [id number] [place] Work Phone: History of Present illness Narrative* Pt presented on time. He was able to increase the abilify. The hunger came back and it lasts all day. Mood "better" after making the change. Denies SI/NSSI since making the change. Anxiety has been "pretty high" since last session. He feels it's situational. A spider came down from the ceiling ontohis desk so he's been avoiding it. Something fell in the garage and made a noise when no one was britney e. He's feeling paranoid that someone was in the garage and made it fall. The family went and checked and the tiller fell down but he's struggling to get over it. He's taking the clonazepam nightly and the rest are as needed. Suggested adding something for anxiety. Since SSRIs haven't been very helpful and gabapentin may have caused some depression, suggested lyrica. Reviewed risks. * I have personally reviewed the OARRS report for LILY QUIROZ. I have considered the risks of abuse, dependence, addiction and diversion. * I have the following concerns: none. * Is the patient prescribed a combination of a benzodiazepine and opioid? No. * Last urine drug screening date/ordered today: 02/10/2023 * Date of the last Controlled Substance Agreement: 01/29/2023 [id number] [address] [place] [address] Work Phone: Hospital Discharge instructions No data available for this section [facility] Progress note No data available for this section [facility] Reason for referral (narrative)* Outpatient Procedure (Routine) - Authorized Specialty Diagnoses / Procedures Referred By Ariel brown Referred To Contact [facility] Diagnoses Paroxysmal atrial fibrillation (HCC) Procedures ECG COMPLETE ECG ROUTINE ECG W/LEAST 12 LDS W/I&R Dorian Jeffers MD [address] [place] [address] [facility] [address] [place] [address] Referral ID Status Reason Start Date Expiration Date Visits Requested Visits Authorized [id number] Authorized Auto-Generat ed Referral 04/22/2023 04/21/2024 1 1 [facility] for referral (narrative)* Diagnostic Procedure Only (Routine) - Pending Review Specialty Diagnoses / Procedures Referred By Ariel brown Referred To Contact MOLECULAR & FUNCTIONAL IMAGING Diagnoses Dyspepsia Procedures NM GASTRIC EMPTYING SOLID GASTRIC EMPTYING STUDY Desiree William PA-C 1 [facility] [address] [address] [facility] [address] [place] [id number] Referral ID Status Reason Start Date Expiration Date Visits Requested Visits Authorized [id number] Pending Review Auto-Generat ed Referral 12/29/2023 01/27/2025 1 1 [facility] for referral (narrative)* Diagnostic Procedure Only (Routine) - New Request Specialty Diagnoses / Procedures Referred By Ariel brown Referred To Contact US IMAGING Diagnoses Nausea Vomiting without nausea, unspecified vomiting type Procedures US ABD RIGHT UPPER QUADRANT US ABDOMINAL REAL TIME W/IMAGE LIMITED Desiree William PA-C 1 [facility] [address] [address] [facility] [place] [address] Referral ID Status Reason Start Date Expiration Date Visits Requested Visits Authorized [id number] New Request Auto-Generat ed Referral 06/21/2024 07/21/2025 1 1 * Diagnostic Procedure Only (Routine) - New Request Specialty Diagnoses / Procedures Referred By Ariel brown Referred To Contact [facility]LECULAR [facility] FUNCTIONAL IMAGING Diagnoses Nausea Vomiting without nausea, unspecified vomiting type Procedures NM GASTRIC EMPTYING SOLID GASTRIC EMPTYING STUDY Desiree William PA-C 1 [facility] [address] [address] [facility] [address] [place] [id number] Referral ID Status Reason Start Date Expiration Date Visits Requested Visits Authorized [id number] New Request Auto-Generat ed Referral 06/21/2024 07/21/2025 1 1 [facility] for referral (narrative)* Outpatient Procedure (Routine) - Authorized Specialty Diagnoses / Procedures Referred By Ariel brown Referred To Contact [facility] Diagnoses Paroxysmal A-fib (HCC) Procedures ECG COMPLETE ECG ROUTINE ECG W/LEAST 12 LDS W/I&R Dorian Jeffers MD [address] [place] [address] [facility] [place] [address] [place] [address] Referral ID Status Reason Start Date Expiration Date Visits Requested Visits Authorized [id number] Authorized Auto-Generat ed Referral 11/27/2024 11/27/2025 1 1 IE [facility] for visit Narrative* Diagnostic Procedure Only (Routine) - Closed Specialty Diagnoses / Procedures Referred By Ariel brown Referred To Contact MOLECULAR & FUNCTIONAL IMAGING Diagnoses Thyrotoxicosis without thyroid storm, unspecified thyrotoxicosis type Procedures NM THY UPTAKE AND SCAN THYROID UPTAKE W/BLOOD FLOW SNGLE/MULT SABI LAURY Blanca Momin MD [address] [place] [address] [facility] [address] [place] [address] Referral ID Status Reason Start Date Expiration Date V isits Requested Visits Authorized [id number] Closed Auto-Generate d Referral 07/06/2024 08/05/2025 1 1 [facility] Summary Purpose Family History No Family History Records Found Mother Name Dates Details Family history of depression (V17.0, Z81.8) Status:Active Family history of Anxiety(30 0.00, F41.9) Status:Active Brother Name Dates Details Family history of Anxiety(30 0.00, F41.9) Status:Active Mother Name Dates Details Family history of depression (V17.0, Z81.8) Status:Active Family history of Anxiety(30 0.00, F41.9) Status:Active Brother Name Dates Details Family history of Anxiety(30 0.00, F41.9) Status:Active Mother Name Dates Details Family history of depression (V17.0, Z81.8) Status:Active Family history of Anxiety(30 0.00, F41.9) Status:Active Brother Name Dates Details Family history of Anxiety(30 0.00, F41.9) Status:Active Mother Name Dates Details Family history of depression (V17.0, Z81.8) Status:Active Family history of Anxiety(30 0.00, F41.9) Status:Active Brother Name Dates Details Family history of Anxiety(30 0.00, F41.9) Status:Active Mother Name Dates Details Family history of depression (V17.0, Z81.8) Status:Active Family history of Anxiety(30 0.00, F41.9) Status:Active Brother Name Dates Details Family history of Anxiety(30 0.00, F41.9) Status:Active Mother Name Dates Details Family history of depression (V17.0, Z81.8) Status:Active Family history of Anxiety(30 0.00, F41.9) Status:Active Brother Name Dates Details Family history of Anxiety(30 0.00, F41.9) Status:Active Mother Name Dates Details Family history of depression (V17.0, Z81.8) Status:Active Family history of Anxiety(30 0.00, F41.9) Status:Active Brother Name Dates Details Family history of Anxiety(30 0.00, F41.9) Status:Active Mother Name Dates Details Family history of depression (V17.0, Z81.8) Status:Active Family history of Anxiety(30 0.00, F41.9) Status:Active Brother Name Dates Details Family history of Anxiety(30 0.00, F41.9) Status:Active Mother Name Dates Details Family history of depression (V17.0, Z81.8) Status:Active Family history of Anxiety(30 0.00, F41.9) Status:Active Brother Name Dates Details Family history of Anxiety(30 0.00, F41.9) Status:Active Mother Name Dates Details Family history of depression (V17.0, Z81.8) Status:Active Family history of Anxiety(30 0.00, F41.9) Status:Active Brother Name Dates Details Family history of Anxiety(30 0.00, F41.9) Status:Active Mother Name Dates Details Family history of depression (V17.0, Z81.8) Status:Active Family history of Anxiety(30 0.00, F41.9) Status:Active Brother Name Dates Details Family history of Anxiety(30 0.00, F41.9) Status:Active Unknown Family Member Name Dates Details Family history of depression : Mother(V17.0, Z81.8) Status:Active Anxiety: Mother, Brother Status:Active Unknown Family Member Name Dates Details Family history of depression : Mother(V17.0, Z81.8) Status:Active Anxiety: Mother, Brother Status:Active Unknown Family Member Name Dates Details Family history of depression : Mother(V17.0, Z81.8) Status:Active Anxiety: Mother, Brother Status:Active Unknown Family Member Name Dates Details Family history of depression : Mother(V17.0, Z81.8) Status:Active Anxiety: Mother, Brother Status:Active Unknown Family Member Name Dates Details Family history of depression : Mother(V17.0, Z81.8) Status:Active Anxiety: Mother, Brother Status:Active Unknown Family Member Name Dates Details Family history of depression : Mother(V17.0, Z81.8) Status:Active Anxiety: Mother, Brother Status:Active Unknown Family Member Name Dates Details Family history of depression : Mother(V17.0, Z81.8) Status:Active Anxiety: Mother, Brother Status:Active Unknown Family Member Name Dates Details Family history of depression : Mother(V17.0, Z81.8) Status:Active Anxiety: Mother, Brother Status:Active Unknown Family Member Name Dates Details Family history of depression : Mother(V17.0, Z81.8) Status:Active Anxiety: Mother, Brother Status:Active Unknown Family Member Name Dates Details Family history of depression : Mother(V17.0, Z81.8) Status:Active Anxiety: Mother, Brother Status:Active Unknown Family Member Name Dates Details Family history of depression : Mother(V17.0, Z81.8) Status:Active Anxiety: Mother, Brother Status:Active Unknown Family Member Name Dates Details Anxiety: Mother, Brother Status:Active Family history of depression : Mother(V17.0, Z81.8) Status:Active Unknown Family Member Name Dates Details Family history of depression : Mother(V17.0, Z81.8) Status:Active Anxiety: Mother, Brother Status:Active Unknown Family Member Name Dates Details Family history of depression : Mother(V17.0, Z81.8) Status:Active Anxiety: Mother, Brother Status:Active Unknown Family Member Name Dates Details Family history of depression : Mother(V17.0, Z81.8) Status:Active Anxiety: Mother, Brother Status:Active Unknown Family Member Name Dates Details Family history of depression : Mother(V17.0, Z81.8) Status:Active Anxiety: Mother, Brother Status:Active Unknown Family Member Name Dates Details Family history of depression : Mother(V17.0, Z81.8) Status:Active Anxiety: Mother, Brother Status:Active Unknown Family Member Name Dates Details Family history of depression : Mother(V17.0, Z81.8) Status:Active Anxiety: Mother, Brother Status:Active Unknown Family Member Name Dates Details Family history of depression : Mother(V17.0, Z81.8) Status:Active Anxiety: Mother, Brother Status:Active Unknown Family Member Name Dates Details Family history of depression : Mother(V17.0, Z81.8) Status:Active Anxiety: Mother, Brother Status:Active Unknown Family Member Name Dates Details Family history of depression : Mother(V17.0, Z81.8) Status:Active Anxiety: Mother, Brother Status:Active Unknown Family Member Name Dates Details Family history of depression : Mother(V17.0, Z81.8) Status:Active Anxiety: Mother, Brother Status:Active Unknown Family Member Name Dates Details Family history of depression : Mother(V17.0, Z81.8) Status:Active Anxiety: Mother, Brother Status:Active Unknown Family Member Name Dates Details Family history of depression : Mother(V17.0, Z81.8) Status:Active Anxiety: Mother, Brother Status:Active Unknown Family Member Name Dates Details Family history of depression : Mother(V17.0, Z81.8) Status:Active Anxiety: Mother, Brother Status:Active Unknown Family Member Name Dates Details Family history of depression : Mother(V17.0, Z81.8) Status:Active Anxiety: Mother, Brother Status:Active Unknown Family Member Name Dates Details Family history of depression : Mother(V17.0, Z81.8) Status:Active Anxiety: Mother, Brother Status:Active Unknown Family Member Name Dates Details Family history of depression : Mother(V17.0, Z81.8) Status:Active Anxiety: Mother, Brother Status:Active Unknown Family Member Name Dates Details Family history of depression : Mother(V17.0, Z81.8) Status:Active Anxiety: Mother, Brother Status:Active Unknown Family Member Name Dates Details Family history of depression : Mother(V17.0, Z81.8) Status:Active Anxiety: Mother, Brother Status:Active Unknown Family Member Name Dates Details Family history of depression : Mother(V17.0, Z81.8) Status:Active Anxiety: Mother, Brother Status:Active Unknown Family Member Name Dates Details Family history of depression : Mother(V17.0, Z81.8) Status:Active Anxiety: Mother, Brother Status:Active Unknown Family Member Name Dates Details Family history of depression : Mother(V17.0, Z81.8) Status:Active Anxiety: Mother, Brother Status:Active Unknown Family Member Name Dates Details Family history of depression : Mother(V17.0, Z81.8) Status:Active Anxiety: Mother, Brother Status:Active Unknown Family Member Name Dates Details Family history of depression : Mother(V17.0, Z81.8) Status:Active Anxiety: Mother, Brother Status:Active Unknown Family Member Name Dates Details Family history of depression : Mother(V17.0, Z81.8) Status:Active Anxiety: Mother, Brother Status:Active Unknown Family Member Name Dates Details Family history of depression : Mother(V17.0, Z81.8) Status:Active Anxiety: Mother, Brother Status:Active Unknown Family Member Name Dates Details Family history of depression : Mother(V17.0, Z81.8) Status:Active Anxiety: Mother, Brother Status:Active Unknown Family Member Name Dates Details Family history of depression : Mother(V17.0, Z81.8) Status:Active Anxiety: Mother, Brother Status:Active Unknown Family Member Name Dates Details Family history of depression : Mother(V17.0, Z81.8) Status:Active Anxiety: Mother, Brother Status:Active Unknown Family Member Name Dates Details Family history of depression : Mother(V17.0, Z81.8) Status:Active Anxiety: Mother, Brother Status:Active Unknown Family Member Name Dates Details Family history of depression : Mother(V17.0, Z81.8) Status:Active Anxiety: Mother, Brother Status:Active Unknown Family Member Name Dates Details Family history of depression : Mother(V17.0, Z81.8) Status:Active Anxiety: Mother, Brother Status:Active Unknown Family Member Name Dates Details Family history of depression : Mother(V17.0, Z81.8) Status:Active Anxiety: Mother, Brother Status:Active Unknown Family Member Name Dates Details Family history of depression : Mother(V17.0, Z81.8) Status:Active Anxiety: Mother, Brother Status:Active Unknown Family Member Name Dates Details Family history of depression : Mother(V17.0, Z81.8) Status:Active Anxiety: Mother, Brother Status:Active Unknown Family Member Name Dates Details Family history of depression : Mother(V17.0, Z81.8) Status:Active Anxiety: Mother, Brother Status:Active Unknown Family Member Name Dates Details Family history of depression : Mother(V17.0, Z81.8) Status:Active Anxiety: Mother, Brother Status:Active Unknown Family Member Name Dates Details Family history of depression : Mother(V17.0, Z81.8) Status:Active Anxiety: Mother, Brother Status:Active Unknown Family Member Name Dates Details Family history of depression : Mother(V17.0, Z81.8) Status:Active Anxiety: Mother, Brother Status:Active Unknown Family Member Name Dates Details Family history of depression : Mother(V17.0, Z81.8) Status:Active Anxiety: Mother, Brother Status:Active Unknown Family Member Name Dates Details Family history of depression : Mother(V17.0, Z81.8) Status:Active Anxiety: Mother, Brother Status:Active Unknown Family Member Name Dates Details Family history of depression : Mother(V17.0, Z81.8) Status:Active Anxiety: Mother, Brother Status:Active Unknown Family Member Name Dates Details Family history of depression : Mother(V17.0, Z81.8) Status:Active Anxiety: Mother, Brother Status:Active Unknown Family Member Name Dates Details Family history of depression : Mother(V17.0, Z81.8) Status:Active Anxiety: Mother, Brother Status:Active Unknown Family Member Name Dates Details Family history of depression : Mother(V17.0, Z81.8) Status:Active Anxiety: Mother, Brother Status:Active Unknown Family Member Name Dates Details Family history of depression : Mother(V17.0, Z81.8) Status:Active Anxiety: Mother, Brother Status:Active Unknown Family Member Name Dates Details Family history of depression : Mother(V17.0, Z81.8) Status:Active Anxiety: Mother, Brother Status:Active Unknown Family Member Name Dates Details Family history of depression : Mother(V17.0, Z81.8) Status:Active Anxiety: Mother, Brother Status:Active Unknown Family Member Name Dates Details Family history of depression : Mother(V17.0, Z81.8) Status:Active Anxiety: Mother, Brother Status:Active Unknown Family Member Name Dates Details Family history of depression : Mother(V17.0, Z81.8) Status:Active Anxiety: Mother, Brother Status:Active Unknown Family Member Name Dates Details Family history of depression : Mother(V17.0, Z81.8) Status:Active Anxiety: Mother, Brother Status:Active Unknown Family Member Name Dates Details Family history of depression : Mother(V17.0, Z81.8) Status:Active Anxiety: Mother, Brother Status:Active Unknown Family Member Name Dates Details Family history of depression : Mother(V17.0, Z81.8) Status:Active Anxiety: Mother, Brother Status:Active Unknown Family Member Name Dates Details Family history of depression : Mother(V17.0, Z81.8) Status:Active Anxiety: Mother, Brother Status:Active Unknown Family Member Name Dates Details Family history of depression : Mother(V17.0, Z81.8) Status:Active Anxiety: Mother, Brother Status:Active Unknown Family Member Name Dates Details Family history of depression : Mother(V17.0, Z81.8) Status:Active Anxiety: Mother, Brother Status:Active Unknown Family Member Name Dates Details Family history of depression : Mother(V17.0, Z81.8) Status:Active Anxiety: Mother, Brother Status:Active Unknown Family Member Name Dates Details Family history of depression : Mother(V17.0, Z81.8) Status:Active Anxiety: Mother, Brother Status:Active Unknown Family Member Name Dates Details Family history of depression : Mother(V17.0, Z81.8) Status:Active Anxiety: Mother, Brother Status:Active Unknown Family Member Name Dates Details Family history of depression : Mother(V17.0, Z81.8) Status:Active Anxiety: Mother, Brother Status:Active Unknown Family Member Name Dates Details Family history of depression : Mother(V17.0, Z81.8) Status:Active Anxiety: Mother, Brother Status:Active Unknown Family Member Name Dates Details Family history of depression : Mother(V17.0, Z81.8) Status:Active Anxiety: Mother, Brother Status:Active Unknown Family Member Name Dates Details Family history of depression : Mother(V17.0, Z81.8) Status:Active Anxiety: Mother, Brother Status:Active Unknown Family Member Name Dates Details Family history of depression : Mother(V17.0, Z81.8) Status:Active Anxiety: Mother, Brother Status:Active Unknown Family Member Name Dates Details Family history of depression : Mother(V17.0, Z81.8) Status:Active Anxiety: Mother, Brother Status:Active Unknown Family Member Name Dates Details Family history of depression : Mother(V17.0, Z81.8) Status:Active Anxiety: Mother, Brother Status:Active Unknown Family Member Name Dates Details Family history of depression : Mother(V17.0, Z81.8) Status:Active Anxiety: Mother, Brother Status:Active Unknown Family Member Name Dates Details Family history of depression : Mother(V17.0, Z81.8) Status:Active Anxiety: Mother, Brother Status:Active Unknown Family Member Name Dates Details Family history of depression : Mother(V17.0, Z81.8) Status:Active Anxiety: Mother, Brother Status:Active Unknown Family Member Name Dates Details Family history of depression : Mother(V17.0, Z81.8) Status:Active Anxiety: Mother, Brother Status:Active Unknown Family Member Name Dates Details Family history of depression : Mother(V17.0, Z81.8) Status:Active Anxiety: Mother, Brother Status:Active Unknown Family Member Name Dates Details Family history of depression : Mother(V17.0, Z81.8) Status:Active Anxiety: Mother, Brother Status:Active Unknown Family Member Name Dates Details Family history of depression : Mother(V17.0, Z81.8) Status:Active Anxiety: Mother, Brother Status:Active Unknown Family Member Name Dates Details Family history of depression : Mother(V17.0, Z81.8) Status:Active Anxiety: Mother, Brother Status:Active Unknown Family Member Name Dates Details Family history of depression : Mother(V17.0, Z81.8) Status:Active Anxiety: Mother, Brother Status:Active Unknown Family Member Name Dates Details Family history of depression : Mother(V17.0, Z81.8) Status:Active Anxiety: Mother, Brother Status:Active Unknown Family Member Name Dates Details Family history of depression : Mother(V17.0, Z81.8) Status:Active Anxiety: Mother, Brother Status:Active Unknown Family Member Name Dates Details Family history of depression : Mother(V17.0, Z81.8) Status:Active Anxiety: Mother, Brother Status:Active Unknown Family Member Name Dates Details Family history of depression : Mother(V17.0, Z81.8) Status:Active Anxiety: Mother, Brother Status:Active Unknown Family Member Name Dates Details Family history of depression : Mother(V17.0, Z81.8) Status:Active Anxiety: Mother, Brother Status:Active Unknown Family Member Name Dates Details Family history of depression : Mother(V17.0, Z81.8) Status:Active Anxiety: Mother, Brother Status:Active Unknown Family Member Name Dates Details Family history of depression : Mother(V17.0, Z81.8) Status:Active Anxiety: Mother, Brother Status:Active Unknown Family Member Name Dates Details Family history of depression : Mother(V17.0, Z81.8) Status:Active Anxiety: Mother, Brother Status:Active Unknown Family Member Name Dates Details Family history of depression : Mother(V17.0, Z81.8) Status:Active Anxiety: Mother, Brother Status:Active Unknown Family Member Name Dates Details Family history of depression : Mother(V17.0, Z81.8) Status:Active Anxiety: Mother, Brother Status:Active Unknown Family Member Name Dates Details Family history of depression : Mother(V17.0, Z81.8) Status:Active Anxiety: Mother, Brother Status:Active Unknown Family Member Name Dates Details Family history of depression : Mother(V17.0, Z81.8) Status:Active Anxiety: Mother, Brother Status:Active Unknown Family Member Name Dates Details Family history of depression : Mother(V17.0, Z81.8) Status:Active Anxiety: Mother, Brother Status:Active Unknown Family Member Name Dates Details Family history of depression : Mother(V17.0, Z81.8) Status:Active Anxiety: Mother, Brother Status:Active Unknown Family Member Name Dates Details Family history of depression : Mother(V17.0, Z81.8) Status:Active Anxiety: Mother, Brother Status:Active Unknown Family Member Name Dates Details Family history of depression : Mother(V17.0, Z81.8) Status:Active Anxiety: Mother, Brother Status:Active Unknown Family Member Name Dates Details Family history of depression : Mother(V17.0, Z81.8) Status:Active Anxiety: Mother, Brother Status:Active Unknown Family Member Name Dates Details Family history of depression : Mother(V17.0, Z81.8) Status:Active Anxiety: Mother, Brother Status:Active Unknown Family Member Name Dates Details Family history of depression : Mother(V17.0, Z81.8) Status:Active Anxiety: Mother, Brother Status:Active Unknown Family Member Name Dates Details Family history of depression : Mother(V17.0, Z81.8) Status:Active Anxiety: Mother, Brother Status:Active Unknown Family Member Name Dates Details Family history of depression : Mother(V17.0, Z81.8) Status:Active Anxiety: Mother, Brother Status:Active Unknown Family Member Name Dates Details Family history of depression : Mother(V17.0, Z81.8) Status:Active Anxiety: Mother, Brother Status:Active Unknown Family Member Name Dates Details Family history of depression : Mother(V17.0, Z81.8) Status:Active Anxiety: Mother, Brother Status:Active Unknown Family Member Name Dates Details Family history of depression : Mother(V17.0, Z81.8) Status:Active Anxiety: Mother, Brother Status:Active Unknown Family Member Name Dates Details Family history of depression : Mother(V17.0, Z81.8) Status:Active Anxiety: Mother, Brother Status:Active Unknown Family Member Name Dates Details Family history of depression : Mother(V17.0, Z81.8) Status:Active Anxiety: Mother, Brother Status:Active Unknown Family Member Name Dates Details Family history of depression : Mother(V17.0, Z81.8) Status:Active Anxiety: Mother, Brother Status:Active Unknown Family Member Name Dates Details Family history of depression : Mother(V17.0, Z81.8) Status:Active Anxiety: Mother, Brother Status:Active Unknown Family Member Name Dates Details Family history of depression : Mother(V17.0, Z81.8) Status:Active Anxiety: Mother, Brother Status:Active Unknown Family Member Name Dates Details Family history of depression : Mother(V17.0, Z81.8) Status:Active Anxiety: Mother, Brother Status:Active Unknown Family Member Name Dates Details Family history of depression : Mother(V17.0, Z81.8) Status:Active Anxiety: Mother, Brother Status:Active Unknown Family Member Name Dates Details Family history of depression : Mother(V17.0, Z81.8) Status:Active Anxiety: Mother, Brother Status:Active Unknown Family Member Name Dates Details Family history of depression : Mother(V17.0, Z81.8) Status:Active Anxiety: Mother, Brother Status:Active Unknown Family Member Name Dates Details Family history of depression : Mother(V17.0, Z81.8) Status:Active Anxiety: Mother, Brother Status:Active Unknown Family Member Name Dates Details Family history of depression : Mother(V17.0, Z81.8) Status:Active Anxiety: Mother, Brother Status:Active Unknown Family Member Name Dates Details Family history of depression : Mother(V17.0, Z81.8) Status:Active Anxiety: Mother, Brother Status:Active Unknown Family Member Name Dates Details Family history of depression : Mother(V17.0, Z81.8) Status:Active Anxiety: Mother, Brother Status:Active Unknown Family Member Name Dates Details Family history of depression : Mother(V17.0, Z81.8) Status:Active Anxiety: Mother, Brother Status:Active Unknown Family Member Name Dates Details Family history of depression : Mother(V17.0, Z81.8) Status:Active Anxiety: Mother, Brother Status:Active Unknown Family Member Name Dates Details Family history of depression : Mother(V17.0, Z81.8) Status:Active Anxiety: Mother, Brother Status:Active Unknown Family Member Name Dates Details Family history of depression : Mother(V17.0, Z81.8) Status:Active Anxiety: Mother, Brother Status:Active Unknown Family Member Name Dates Details Family history of depression : Mother(V17.0, Z81.8) Status:Active Anxiety: Mother, Brother Status:Active Unknown Family Member Name Dates Details Family history of depression : Mother(V17.0, Z81.8) Status:Active Anxiety: Mother, Brother Status:Active Unknown Family Member Name Dates Details Family history of depression : Mother(V17.0, Z81.8) Status:Active Anxiety: Mother, Brother Status:Active Unknown Family Member Name Dates Details Family history of depression : Mother(V17.0, Z81.8) Status:Active Anxiety: Mother, Brother Status:Active Unknown Family Member Name Dates Details Family history of depression : Mother(V17.0, Z81.8) Status:Active Anxiety: Mother, Brother Status:Active Unknown Family Member Name Dates Details Family history of depression : Mother(V17.0, Z81.8) Status:Active Anxiety: Mother, Brother Status:Active Unknown Family Member Name Dates Details Family history of depression : Mother(V17.0, Z81.8) Status:Active Anxiety: Mother, Brother Status:Active Unknown Family Member Name Dates Details Family history of depression : Mother(V17.0, Z81.8) Status:Active Anxiety: Mother, Brother Status:Active Unknown Family Member Name Dates Details Family history of depression : Mother(V17.0, Z81.8) Status:Active Anxiety: Mother, Brother Status:Active Unknown Family Member Name Dates Details Family history of depression : Mother(V17.0, Z81.8) Status:Active Anxiety: Mother, Brother Status:Active Unknown Family Member Name Dates Details Family history of depression : Mother(V17.0, Z81.8) Status:Active Anxiety: Mother, Brother Status:Active Unknown Family Member Name Dates Details Family history of depression : Mother(V17.0, Z81.8) Status:Active Anxiety: Mother, Brother Status:Active Unknown Family Member Name Dates Details Family history of depression : Mother(V17.0, Z81.8) Status:Active Anxiety: Mother, Brother Status:Active Unknown Family Member Name Dates Details Family history of depression : Mother(V17.0, Z81.8) Status:Active Anxiety: Mother, Brother Status:Active Unknown Family Member Name Dates Details Family history of depression : Mother(V17.0, Z81.8) Status:Active Anxiety: Mother, Brother Status:Active Unknown Family Member Name Dates Details Family history of depression : Mother(V17.0, Z81.8) Status:Active Anxiety: Mother, Brother Status:Active Unknown Family Member Name Dates Details Family history of depression : Mother(V17.0, Z81.8) Status:Active Anxiety: Mother, Brother Status:Active Unknown Family Member Name Dates Details Family history of depression : Mother(V17.0, Z81.8) Status:Active Anxiety: Mother, Brother Status:Active Unknown Family Member Name Dates Details Family history of depression : Mother(V17.0, Z81.8) Status:Active Anxiety: Mother, Brother Status:Active Unknown Family Member Name Dates Details Family history of depression : Mother(V17.0, Z81.8) Status:Active Anxiety: Mother, Brother Status:Active Advance Directives No Advanced Directives Records FoundDocuments on File Type Date Recorded Patient Rat Trapper Expl anation Advance Directives and Living Will Power of [employer]ner Latest Code Status on File Code Status Date Activated Date Inactivated Comments Full Code 04/28/2018 1:15 PM 04/28/2018 7:07 PM Full Code 03/01/2018 9:36 PM 03/03/2018 1:35 PM Latest Code Status on File Code Status Date Activated Date Inactivated Comments Full Code 09/13/2019 8:14 PM Full Code 04/28/2018 1:15 PM 04/28/2018 7:07 PM Latest Code Status on File Code Status Date Activated Date Inactivated Comments Full Code 09/13/2019 8:14 PM 09/16/2019 3:12 PM Documents on File Type Date Recorded Patient Rat Trapper Expl anation ACP-Advance Directive ACP-Power of [employer]ner Documents on File Type Date Recorded Patient Rat Trapper Expl anation ACP-Advance Directive ACP-Power of [employer]ner Latest Code Status on File Code Status Date Activated Date Inactivated Comments Full Code 09/13/2019 8:14 PM 09/16/2019 3:12 PM Full Code 04/28/2018 1:15 PM 04/28/2018 7:07 PM Full Code 03/01/2018 9:36 PM 03/03/2018 1:35 PM Documents on File Type Date Recorded Patient Rat Trapper Expl anation Advance Directive(s) 06/11/2021 10:38 PM Advance Directive(s) 08/30/2020 12:33 PM Advance Directive(s) 07/09/2020 2:59 PM Advance Directive(s) 12/08/2018 2:51 AM Advance Directive(s) 02/15/2018 12:29 AM Advance Directive(s) 01/28/2018 1:38 AM do es not have one Latest Code Status on File Code Status Date Activated Date Inactivated Comments Full Code 12/15/2022 1:12 AM 12/21/2022 3:09 PM Full Code Order Discussed With: Patient Latest Code Status on File Code Status Date Activated Date Inactivated Comments Full Code 07/15/2023 4:35 PM 07/16/2023 6:17 PM Question Answer Comments Full Code Order Discussed With: Discussion Not Medically Appropriate Code Status History Code Status Date Activated Date Inactivated Comments Full Code 12/15/2022 1:12 AM 12/21/2022 3:09 PM Question Answer Comments Full Code Order Discussed With: Patient Latest Code Status on File Code Status Date Activated Date Inactivated Comments Full Code 07/15/2023 4:35 PM 07/16/2023 6:17 PM Question Answer Comments Full Code Order Discussed With: Discussion Not Medically Appropriate Code Status History Code Status Date Activated Date Inactivated Comments Full Code 12/15/2022 1:12 AM 12/21/2022 3:09 PM Question Answer Comments Full Code Order Discussed With: Patient Latest Code Status on File Code Status Date Activated Date Inactivated Comments Full Code 07/15/2023 4:35 PM 07/16/2023 6:17 PM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 Verbal consent was requested and obtained from LILY QUIROZ on this date, 05/29/2022 02:00 PM, for a telehealth visit. * Mood, trauma. * AccompaniedBy_UH: * PsychChiefComplaintFreeTextNoteForm_UH: * An interactive audio and video telecommunication system which permits real time communications between the patient (at the originating site) and provider (at the distant site) was utilized to providethis telehealth service. * Verbal consent was requested and obtained from LILY QUIROZ on this date, 06/24/2022 02:00 PM, for a telehealth visit. * Mood, trauma. * ChiefComplaintFreeTextNoteForm_UH: * AccompaniedBy_UH: * PsychChiefComplaintFreeTextNoteForm_UH: * An interactive audio and video telecommunication system which permits real time communications between the patient (at the originating site) and provider (at the distant site) was utilized to providethis telehealth service. * Verbal consent was requested and obtained from LILY QUIROZ on this date, 06/24/2022 02:00 PM, for a telehealth visit. * Mood, trauma. * ChiefComplaintFreeTextNoteForm_UH: * AccompaniedBy_UH: * PsychChiefComplaintFreeTextNoteForm_UH: * An interactive audio and video telecommunication system which permits real time communications between the patient (at the originating site) and provider (at the distant site) was utilized to providethis telehealth service. * Verbal consent was requested and obtained from LILY QUIROZ on this date, 07/08/2022 02:00 PM, for a telehealth visit. * Mood, trauma. * AccompaniedBy_UH: * PsychChiefComplaintFreeTextNoteForm_UH: * An interactive audio and video telecommunication system which permits real time communications between the patient (at the originating site) and provider (at the distant site) was utilized to providethis telehealth service. * Verbal consent was requested and obtained from LILY QUIROZ on this date, 07/08/2022 02:00 PM, for a telehealth visit. * Mood, trauma. * AccompaniedBy_UH: * PsychChiefComplaintFreeTextNoteForm_UH: * An interactive audio and video telecommunication system which permits real time communications between the patient (at the originating site) and provider (at the distant site) was utilized to providethis telehealth service. * Verbal consent was requested and obtained from LILY QUIROZ on this date, 07/08/2022 02:00 PM, for a telehealth visit. * Mood, trauma. Health Concerns Infection Onset Date Last Indicated Resolved Time COVID-19 Rule-Out 09/28/2023 09/28/2023 09/28/2023 2:46 PM EST Reason for Referral Specialty Diagnoses / Procedures Referred By Ariel t Referred To Contact Diagnoses Insomnia, unspecified type Dyskinesia, tardive Procedures PROVIDER ORDERED FOLLOW UP OFFICE/OUTPATIENT [facility] 60 MINUTES Juan David No MD [address] [place] [address] Referral ID Status Reason Start Date Expiration Date Visits Requested Visits Authorized [id number] Authorized PCP Requested Referral 4 01/23/2025 1 1 Additional Source Comments INFORMATION SOURCE (unrecogn ized section and content) DATE CREATED AUTHOR 05/06/2018 [facility] DATE CREATED AUTHOR AUTHOR'S ORGANIZ ATION 06/13/2019 [facility] DATE CREATED AUTHOR AUTHOR'S ORGANIZ ATION 08/06/2020 [facility] DATE CREATED AUTHOR AUTHOR'S ORGANIZ ATION 05/22/2021 [facility] DATE CREATED AUTHOR AUTHOR'S ORGANIZ ATION 06/13/2021 [facility]] [facility] DATE CREATED AUTHOR AUTHOR'S ORGANIZ ATION 07/10/2023 [facility] DATE CREATED AUTHOR AUTHOR'S ORGANIZ ATION 08/05/2023 [facility] DATE CREATED AUTHOR AUTHOR'S ORGANIZ ATION 05/11/2024 [facility] ([place]) DATE CREATED AUTHOR AUTHOR'S ORGANIZ ATION 07/28/2024 [facility] DATE CREATED AUTHOR AUTHOR'S ORGANIZ ATION 12/06/2024 [facility] DATE CREATED AUTHOR AUTHOR'S ORGANIZ ATION 12/07/2024 [facility] DATE CREATED AUTHOR AUTHOR'S ORGANIZ ATION 02/24/2025 [facility] DATE CREATED AUTHOR AUTHOR'S ORGANIZ ATION 02/26/2025 [facility] DATE CREATED AUTHOR AUTHOR'S ORGANIZ ATION 02/27/2025 [facility] DATE CREATED AUTHOR AUTHOR'S ORGANIZ ATION 03/20/2025 [facility] DATE CREATED AUTHOR AUTHOR'S ORGANIZ ATION 04/13/2025 [facility] DATE CREATED AUTHOR AUTHOR'S ORGANIZ ATION 05/06/2025 [facility] DATE CREATED AUTHOR AUTHOR'S ORGANIZ ATION 05/07/2025 [facility] DATE CREATED AUTHOR AUTHOR'S ORGANIZ ATION 05/30/2025 [facility] DATE CREATED AUTHOR AUTHOR'S ORGANIZ ATION 08/23/2025 [facility] Surgical History (unrecogniz ed section and content) Surgery Date Site/Laterality Comments MANDIBLE SURGERY COLONOSCOPY ENDOSCOPY, COLON, DIAGNOSTIC WISDOM TOOTH EXTRACTION NOSE SURGERY 04/28/2018 SEPTOPLASTY, BILATERAL SUBMUCOUS RESECTION INFERIOR TURBINATES Medical History (unrecognize d section and content) Medical History Date Comments A-fib (HCC) Bipolar 1 disorder, manic, moderate (HCC) Constipation Migraines GERD (gastroesophageal reflux disease) Hiatal hernia PONV (postoperative nausea and vomiting) after jaw surgery Source Comments (unrecognize d section and content) In the event this informatio n is protected by the Federal Confidentiality of Alcohol and Drug Abuse Patient Records regulations: The Federal rules restrict any use of the information to criminally investigate or prosecute any alcohol or drug abuse patient.[facility] Center[facility] the event this information is protected by the Federal Confidentiality of Alcohol and Drug Abuse Patient Records regulations: The Federal rules restrict any use of the information to criminally investigate or prosecute any alcohol or drug abuse patient.[facility] CenterIn the event this information is protected by the Federal Confidentiality of Alcohol and Drug Abuse Patient Records regulations: The Federal rules restrict any use of the information to criminally investigate or prosecute any alcohol or drug abuse patient.[facility] CenterIn the event this information is protected by the Federal Confidentiality of Alcohol and Drug Abuse Patient Records regulations: The Federal rules restrict any use of the information to criminally investigate or prosecute any alcohol or drug abuse patient.[facility] CenterIn the event this information is protected by the Federal Confidentiality of Alcohol and Drug Abuse Patient Records regulations: The Federal rules restrict any use of the information to criminally investigate or prosecute any alcohol or drug abuse patient.[facility] CenterIn the event this information is protected by the Federal Confidentiality of Alcohol and Drug Abuse Patient Records regulations: The Federal rules restrict any use of the information to criminally investigate or prosecute any alcohol or drug abuse patient.[facility] CenterIn the event this information is protected by the Federal Confidentiality of Alcohol and Drug Abuse Patient Records regulations: The Federal rules restrict any use of the information to criminally investigate or prosecute any alcohol or drug abuse patient.[facility] CenterIn the event this information is protected by the Federal Confidentiality of Alcohol and Drug Abuse Patient Records regulations: The Federal rules restrict any use of the information to criminally investigate or prosecute any alcohol or drug abuse patient.[facility] CenterIn the event this information is protected by the Federal Confidentiality of Alcohol and Drug Abuse Patient Records regulations: The Federal rules restrict any use of the information to criminally investigate or prosecute any alcohol or drug abuse patient.[facility] CenterIn the event this information is protected by the Federal Confidentiality of Alcohol and Drug Abuse Patient Records regulations: The Federal rules restrict any use of the information to criminally investigate or prosecute any alcohol or drug abuse patient.[facility] CenterIn the event this information is protected by the Federal Confidentiality of Alcohol and Drug Abuse Patient Records regulations: The Federal rules restrict any use of the information to criminally investigate or prosecute any alcohol or drug abuse patient.[facility] the event this information is protected by the Federal Confidentiality of Alcohol and Drug Abuse Patient Records regulations: The Federal rules restrict any use of the information to criminally investigate or prosecute any alcohol or drug abuse patient.[facility] CenterIn the event this information is protected by the Federal Confidentiality of Alcohol and Drug Abuse Patient Records regulations: The Federal rules restrict any use of the information to criminally investigate or prosecute any alcohol or drug abuse patient.[facility] CenterIn the event this information is protected by the Federal Confidentiality of Alcohol and Drug Abuse Patient Records regulations: The Federal rules restrict any use of the information to criminally investigate or prosecute any alcohol or drug abuse patient.[facility] CenterIn the event this information is protected by the Federal Confidentiality of Alcohol and Drug Abuse Patient Records regulations: The Federal rules restrict any use of the information to criminally investigate or prosecute any alcohol or drug abuse patient.[facility] CenterIn the event this information is protected by the Federal Confidentiality of Alcohol and Drug Abuse Patient Records regulations: The Federal rules restrict any use of the information to criminally investigate or prosecute any alcohol or drug abuse patient.[facility] CenterIn the event this information is protected by the Federal Confidentiality of Alcohol and Drug Abuse Patient Records regulations: The Federal rules restrict any use of the information to criminally investigate or prosecute any alcohol or drug abuse patient.[facility] CenterIn the event this information is protected by the Federal Confidentiality of Alcohol and Drug Abuse Patient Records regulations: The Federal rules restrict any use of the information to criminally investigate or prosecute any alcohol or drug abuse patient.[facility] CenterIn the event this information is protected by the Federal Confidentiality of Alcohol and Drug Abuse Patient Records regulations: The Federal rules restrict any use of the information to criminally investigate or prosecute any alcohol or drug abuse patient.[facility] CenterIn the event this information is protected by the Federal Confidentiality of Alcohol and Drug Abuse Patient Records regulations: The Federal rules restrict any use of the information to criminally investigate or prosecute any alcohol or drug abuse patient.[facility] CenterIn the event this information is protected by the Federal Confidentiality of Alcohol and Drug Abuse Patient Records regulations: The Federal rules restrict any use of the information to criminally investigate or prosecute any alcohol or drug abuse patient.[facility] CenterIn the event this information is protected by the Federal Confidentiality of Alcohol and Drug Abuse Patient Records regulations: The Federal rules restrict any use of the information to criminally investigate or prosecute any alcohol or drug abuse patient.[facility] CenterIn the event this information is protected by the Federal Confidentiality of Alcohol and Drug Abuse Patient Records regulations: The Federal rules restrict any use of the information to criminally investigate or prosecute any alcohol or drug abuse patient.[facility] CenterIn the event this information is protected by the Federal Confidentiality of Alcohol and Drug Abuse Patient Records regulations: The Federal rules restrict any use of the information to criminally investigate or prosecute any alcohol or drug abuse patient.[facility] CenterIn the event this information is protected by the Federal Confidentiality of Alcohol and Drug Abuse Patient Records regulations: The Federal rules restrict any use of the information to criminally investigate or prosecute any alcohol or drug abuse patient.[facility] CenterIn the event this information is protected by the Federal Confidentiality of Alcohol and Drug Abuse Patient Records regulations: The Federal rules restrict any use of the information to criminally investigate or prosecute any alcohol or drug abuse patient.[facility] CenterIn the event this information is protected by the Federal Confidentiality of Alcohol and Drug Abuse Patient Records regulations: The Federal rules restrict any use of the information to criminally investigate or prosecute any alcohol or drug abuse patient.[facility] CenterIn the event this information is protected by the Federal Confidentiality of Alcohol and Drug Abuse Patient Records regulations: The Federal rules restrict any use of the information to criminally investigate or prosecute any alcohol or drug abuse patient.[facility] CenterIn the event this information is protected by the Federal Confidentiality of Alcohol and Drug Abuse Patient Records regulations: The Federal rules restrict any use of the information to criminally investigate or prosecute any alcohol or drug abuse patient.[facility] CenterIn the event this information is protected by the Federal Confidentiality of Alcohol and Drug Abuse Patient Records regulations: The Federal rules restrict any use of the information to criminally investigate or prosecute any alcohol or drug abuse patient.[facility] CenterIn the event this information is protected by the Federal Confidentiality of Alcohol and Drug Abuse Patient Records regulations: The Federal rules restrict any use of the information to criminally investigate or prosecute any alcohol or drug abuse patient.[facility] Reason for Visit (unrecogniz ed section and content) Reason Comments Patient Update Reason Comments Refill Request Reason Comments Appointment Reason Comments Med Change Request Reason Onset Date Comments Psychiatric Problem 09/28/2023 Reason Comments Follow Up Reason Comments Orders Reason Comments Thyroid Problem Reason Comments Nausea & Vomiting Reason Comments Radiology NM Specialty Diagnoses / Procedures Referred By Contac t Referred To Contact MOLECULAR & FUNCTIONAL IMAGING Diagnoses Thyrotoxicosis without thyroid storm, unspecified thyrotoxicosis type Procedures NM THY UPTAKE AND SCAN THYROID UPTAKE W/BLOOD FLOW SNGLE/MULT SABI LAURY Blanca Momin MD [address] [place] [address] Molecular & Functional Imaging [address] [place] [address] Referral ID Status Reason Start Date Expiration Date V isits Requested Visits Authorized [id number] Closed Auto-Generate d Referral 07/06/2024 08/05/2025 1 1 Reason Comments New Patient Reason Onset Date Comments Refill Request 10/29/2024 Reason Onset Date Comments Refill Request 11/23/2024 Reason Onset Date Comments Refill Request 11/27/2024 Reason Comments Atrial Fibrillation Reason Onset Date Comments Psychiatric Problem 03/15/2025 Care Teams (unrecognized sec tion and content) Dental Intern Relationship Specialty Start Date End Date Timmy Tripathi, DO [address] [place], [place] [id number] PCP - General Family Practice 06/29/17 Didi Parra MD [address] [place] [address] Primary Staff Physician Cardiology 01/31/19 Adriana Mccallum [address] [place] [address] [place] [address] Mental Health Provider Psychiatry 06/12/21 Dental Intern Relationship Specialty Start Date End Date Timmy Tripathi DO [address] [place] [address] PCP - General Family Medicine 06/29/17 Didi Parra MD [address] [place] [address] Primary Staff Physician Cardiology 01/31/19 Adriana Mccallum [address] [address] Mental Health Provider Psychiatry 06/12/21 Dental Intern Relationship Specialty Start Date End Date Timmy Tripathi DO [address] [place] [address] PCP - General Family Medicine 06/29/17 Didi Parra MD [address] [place] [address] Primary Staff Physician Cardiology 01/31/19 Adriana Mccallum [address] [address] Mental Health Provider Psychiatry 06/12/21 Dental Intern Relationship Specialty Start Date End Date Timmy Tripathi DO [address] [place] [address] PCP - General Family Medicine 06/29/17 Didi Parra MD [address] [place] [address] Primary Staff Physician Cardiology 01/31/19 [place] [address] [place] [address] Mental Health Provider Psychiatry 06/12/21 Dental Intern Relationship Specialty Start Date End Date Timmy Tripathi MD [address] [place], [place] [id number] PCP - General Family Medicine 06/29/17 Didi Parra MD [address] [place], [place] [id number] Primary Staff Physician Cardiology 01/31/19 [place] [address] [place], [place] [phone] Mental Health Provider Psychiatry 06/12/21 Dental Intern Relationship Specialty Start Date End Date Timmy Tripathi MD [address] [place], [place] [address] PCP - General Family Medicine 06/29/17 Didi Parra MD [address] [place] [address] Primary Staff Physician Cardiology 01/31/19 [place] [address] [place] [address] [place] [address] Mental Health Provider Psychiatry 06/12/21 Dental Intern Relationship Specialty Start Date End Date Timmy Tripathi MD [address] [place], [place] [address] PCP - General Family Medicine 06/29/17 Didi Parra MD [address] [place] [address] Primary Staff Physician Cardiology 01/31/19 [place] [address] [facility] [address] [place] [address] Mental Health Provider Psychiatry 06/12/21 Dental Intern Relationship Specialty Start Date End Date Didi Parra MD [address] [place] [id number] Primary Staff Physician Cardiology 01/31/19 [place] [address] [place] [phone] Mental Health Provider Psychiatry 06/12/21 Dental Intern Relationship Specialty Start Date End Date Didi Parra MD [address] [place] [address] Primary Staff Physician Cardiology 01/31/19 [place] [address] [place] [address] Mental Health Provider Psychiatry 06/12/21 Dental Intern Relationship Specialty Start Date End Date Didi Parra MD [address] [place] [address] Primary Staff Physician Cardiology 01/31/19 [place] [address] [address] [facility] [place] [address] Mental Health Provider Psychiatry 06/12/21 Dental Intern Relationship Specialty Start Date End Date Didi Parra MD [address] [place] [address] Primary Staff Physician Cardiology 01/31/19 [place] [address] [facility] [place] [address] Mental Health Provider Psychiatry 06/12/21 Dental Intern Relationship Specialty Start Date End Date Didi Parra MD [address] [place] [address] Primary Staff Physician Cardiology 01/31/19 [place] [address] [place] [address] Mental Health Provider Psychiatry 06/12/21 Dental Intern Relationship Specialty Start Date End Date Didi Parra MD [address] [place] [address] Primary Staff Physician Cardiology 01/31/19 [place] [address] [place] [address] Mental Health Provider Psychiatry 06/12/21 Dental Intern Relationship Specialty Start Date End Date Danny Lea MD [address] [place] [address] PCP - General Internal Medicine 06/20/24 Didi Parra MD [address] [place] [address] Primary Staff Physician Cardiology 01/31/19 [place] [address] [facility] [place] [address] Mental Health Provider Psychiatry 06/12/21 Dental Intern Relationship Specialty Start Date End Date Danny Lea MD [address] [place], [place] [address] PCP - General Internal Medicine 06/20/24 Didi Parra MD [address] [place] [address] Primary Staff Physician Cardiology 01/31/19 [place] [address] [facility] [place] [address] Mental Health Provider Psychiatry 06/12/21 Dental Intern Relationship Specialty Start Date End Date Danny Lea MD [address] [facility] [place] [place] [address] PCP - General Internal Medicine 06/20/24 Didi Parra MD [address] [place] [address] Primary Staff Physician Cardiology 01/31/19 [place] [address] [facility] [place] [address] Mental Health Provider Psychiatry 06/12/21 Dental Intern Relationship Specialty Start Date End Date Danny Lea MD [address] [facility] [address] [place], [place] [address] PCP - General Internal Medicine 06/20/24 Didi Parra MD [address] [place] [address] Primary Staff Physician Cardiology 01/31/19 [place] [address] [facility] [place] [address] Mental Health Provider Psychiatry 06/12/21 Dental Intern Relationship Specialty Start Date End Date Danny Lea MD [address] [facility] [place] [place] [address] PCP - General Internal Medicine 06/20/24 Didi Parra MD [address] [place] [address] Primary Staff Physician Cardiology 01/31/19 [place] [address] [facility] [place] [address] Mental Health Provider Psychiatry 06/12/21 Dental Intern Relationship Specialty Start Date End Date Danny Lea MD [address] [facility] [place] [address] [place], [place] [id number] PCP - General Internal Medicine 06/20/24 Didi Parra MD [address] [place] [address] Primary Staff Physician Cardiology 01/31/19 [place] [address] [facility] [place] [address] Mental Health Provider Psychiatry 06/12/21 Dental Intern Relationship Specialty Start Date End Date Danny Lea MD [address] [facility] [place] [address] [address] [place], [place] [address] PCP - General Internal Medicine 06/20/24 Didi Parra MD [address] [place] [address] Primary Staff Physician Cardiology 01/31/19 [place] [address] [facility] [place] [address] Mental Health Provider Psychiatry 06/12/21 Dental Intern Relationship Specialty Start Date End Date Danny Lea MD [address] [facility] [place] [address] [place], [place] [address] PCP - General Internal Medicine 06/20/24 Didi Parra MD [address] [place] [address] Primary Staff Physician Cardiology 01/31/19 [place] [address] [facility] [place] [address] Mental Health Provider Psychiatry 06/12/21 Dental Intern Relationship Specialty Start Date End Date Danny Lea MD [address] [facility] [place] [address] [address] [place], [place] [phone] PCP - General Internal Medicine 06/20/24 Didi Parra MD [address] [place] [address] Primary Staff Physician Cardiology 01/31/19 [place] [address] [facility] [place] [address] Mental Health Provider Psychiatry 06/12/21 Dental Intern Relationship Specialty Start Date End Date Danny Lea MD [address] [place], [place] [phone] PCP - General Internal Medicine 06/20/24 Didi Parra MD [address] [place] [address] Primary Staff Physician Cardiology 01/31/19 [place] [address] [facility] [place] [address] Mental Health Provider Psychiatry 06/12/21 Dental Intern Relationship Specialty Start Date End Date Danny Lea MD [address] [place] [address] PCP - General Internal Medicine 06/20/24 Didi Parra MD [address] [place] [address] Primary Staff Physician Cardiology 01/31/19 [place] [address] [facility] [place] [address] Mental Health Provider Psychiatry 06/12/21 Dental Intern Relationship Specialty Start Date End Date Danny Lea MD [address] [facility] [place], [place] [id number] PCP - General Internal Medicine 06/20/24 Didi Parra MD [address] [place] [address] Primary Staff Physician Cardiology 01/31/19 [place] [id number] [facility] [place] [address] Mental Health Provider Psychiatry 06/12/21 Dental Intern Relationship Specialty Start Date End Date Danny Lea MD [address] [place] [address] PCP - General Internal Medicine 06/20/24 Didi Parra MD [address] [place] [address] Primary Staff Physician Cardiology 01/31/19 [place] [id number] [facility] [place] [address] Mental Health Provider Psychiatry 06/12/21 Dorian Jeffers MD [address] [place] [address] Primary Staff Physician Cardiology 01/29/25 Dental Intern Relationship Specialty Start Date End Date Danny Lea MD [address] [facility] [place], [place] [id number] PCP - General Internal Medicine 06/20/24 Didi Parra MD [address] [place] [address] Primary Staff Physician Cardiology 01/31/19 [place] [address] [facility] [id number] Mental Health Provider Psychiatry 06/12/21 Dorian Jeffers MD [address] [place] [address] Primary Staff Physician Cardiology 01/29/25 Dental Intern Relationship Specialty Start Date End Date Danny Lea MD [address] [place], [place] [id number] PCP - General Internal Medicine 06/20/24 Didi Parra MD [address] [place] [address] Primary Staff Physician Cardiology 01/31/19 [place] [address] [facility], [place] [id number] Mental Health Provider Psychiatry 06/12/21 Dorian Jeffers MD [address] [place] [address] Primary Staff Physician Cardiology 01/29/25 FOR RECORDS PERTAINING TO PATIENTS WHO ARE OR HAVE BEEN ENROLLED IN A CHEMICAL DEPENDENCY/SUBSTANCEABUSE PROGRAM, SOME INFORMATION MAY BE OMITTED. This clinical summary was aggregated from multiple sources. Caution should be exercised in using it in the provision of clinical care. This summary normalizes information from multiple sources, and as a consequence, information in this document may materially change the coding, format and clinical context of patient data. In addition, data may be omitted in some cases. CLINICAL DECISIONS SHOULD BE BASED ON THE PRIMARY CLINICAL RECORDS. [facility] [employer] [facility] provides no warranty or guarantee of the accuracy or completeness of information in this document.
== END | disposition home or self-care (01) ==
LOC: CT 16:45
PROVIDERS: PCP Internal Medicine; Referring Provider Nurse Practitioner Family; Visit Provider Nurse Practitioner Family
DX: G43.909 Migraine, unspecified, not intractable, without status migrainosus (principal); G25.9 Extrapyramidal and movement disorder, unspecified
CPT/HCPCS: 70470; Q9967

== ENCOUNTER → 2025-10-26 | Outpatient (CLI) | payer MEDICARE, MEDICAID, SELFPAY ==
[2025-10-26 13:47] LABS: Hematocrit 36.5 % (37-47); Hemoglobin 12.4 g/dL (12.0-15.0); Immature Granulocytes Count 0.030 X10^3/uL (0.0-0.0); Mean Corp Hgb Conc 34.0 g/dL (32-36); Mean Corpuscular Volume 93.8 fL (81-99); Mean Platelet Vol. 10.9 fl (6.2-12.0); NRBC Flagged by Analyzer 0 % (0-5); Platelet Count 242 K/mm3 (150-450); RBC Distribution Width CV 13.3 % (11.6-14.6); RBC Distribution Width SD 45.6 fl (35.1-43.9); Red Blood Count 3.89 M/mm3 (4.2-5.4); White Blood Count 8.6 K/mm3 (4.4-11.0)
== END | disposition home or self-care (01) ==
LOC: LAB 13:04
PROVIDERS: PCP Internal Medicine; Referring Provider Nurse Practitioner Psychiatric/Mental Health; Visit Provider Nurse Practitioner Psychiatric/Mental Health
DX: Z51.81 Encounter for therapeutic drug level monitoring (principal); Z79.899 Other long term (current) drug therapy
CPT/HCPCS: 36415; 85025